=== PATIENT | female | born 1955 | race African-American/Black ===

== ENCOUNTER 2018-11-21 18:01 | Emergency (ER) | payer OTHER ==
--- OUTSIDE RECORDS SUMMARY | 2018-11-21 18:03 | XMS REPORT ---
:1955 [facility] Address [address] [place] [address] Dr. Griffith [address] [place] [id number] Care Team Providers Name Role Phone Unavailable Unavailable Unavailable Problems This patient has no known problems. Allergies, Adverse Reactions, Alerts This patient has no known allergies or adverse reactions. Medications This patient has no known medications. Encounters Start End Encounter Admission Attending Care Care Encounter Date/Time Date/Time Type Type Clinicians Facility Department ID 2018-02-[address] [facility] MED [id number] 16:04:00
[2018-11-21] MEDS ORDERED: DIAZEPAM 5 MG TABLET ONE (19:53)
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
[2018-11-21] MEDS ORDERED: KETOROLAC 30 MG/ML INJ ONE (19:54)
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
== END 2018-11-21 20:30 | disposition home or self-care (01) ==
LOC: ER 18:01
DX: S16.1XXA Strain of muscle, fascia and tendon at neck level, initial encounter (principal); S39.012A Strain of muscle, fascia and tendon of lower back, initial encounter; V49.40XA Driver injured in collision with unspecified motor vehicles in traffic accident, initial encounter; F17.210 Nicotine dependence, cigarettes, uncomplicated; Z79.899 Other long term (current) drug therapy
CPT/HCPCS: 70450; 72125; 96372; 99284

== ENCOUNTER 2018-11-28 15:46 | Emergency (ER) | payer OTHER ==
--- OUTSIDE RECORDS SUMMARY | 2018-11-28 15:48 | XMS REPORT ---
:1955 [facility] [address] [place] [address] Dr. Griffith [address] [place] [id number] Care Team Providers Name Role Phone Unavailable Unavailable Unavailable Problems This patient has no known problems. Allergies, Adverse Reactions, Alerts This patient has no known allergies or adverse reactions. Medications This patient has no known medications. Encounters Start End Encounter Admission Attending Care Care Encounter Date/Time Date/Time Type Type Clinicians Facility Department ID 2018-02-11 Inpatient [facility] MED [id number] 16:04:00
[2018-11-28] MEDS ORDERED: MEPERIDINE HCL 50 MG/ML AMP ONE (17:37)
[2018-11-28] MEDS ORDERED: ONDANSETRON 4 MG (ODT) TAB ONE (17:37)
--- NOTE | 2018-11-28 18:50 | RAD REPORT ---
EXAM DESCRIPTION: RAD - Lumbar Spine 3 Views - 11/28/2018 5:54 pm CLINICAL HISTORY: PAIN Radiculopathy COMPARISON: SPINE LUMBAR W OBLIQUE dated 12/22/2012 FINDINGS: Orthopedic hardware is seen spanning L4-S1. No hardware abnormality discerned. Mild degene rative anterolisthesis of L3 on 4 is noted, unchanged since 2013 comparative study. No acute finding demonstrated.
--- NOTE | 2018-11-28 18:55 | RAD REPORT ---
EXAM DESCRIPTION: RAD - Thoracic Spine Ap/Lat - 11/28/2018 5:56 pm CLINICAL HISTORY: PAIN Radiculopathy COMPARISON: No comparisons FINDINGS: The thoracic spine vertebral body heights and disc spaces are largely maintained. No acute compression fracture. No significant malalignment. IMPRESSION: Negative study.
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
== END 2018-11-28 19:13 | disposition home or self-care (01) ==
LOC: ER 15:46
DX: M62.830 Muscle spasm of back (principal); F17.210 Nicotine dependence, cigarettes, uncomplicated
CPT/HCPCS: 72070; 72100; 96372; 99283; J2175

== ENCOUNTER 2019-12-09 12:24 | Emergency (ER) | payer OTHER ==
--- OUTSIDE RECORDS SUMMARY | 2019-12-09 12:28 | XMS REPORT ---
:1955 [facility] [address] [place] [address] Dr. Griffith [address] [place] [id number] Care Team Providers Name Role Phone Unavailable Unavailable Unavailable Problems This patient has no known problems. Allergies, Adverse Reactions, Alerts This patient has no known allergies or adverse reactions. Medications This patient has no known medications. Encounters Start End Encounter Admission Attending Care Care Encounter Date/Time Date/Time Type Type Clinicians Facility Department ID 2018-02-11 Inpatient [facility] MED [id number] 16:04:00
[2019-12-09] MEDS ORDERED: dexAMETHasone 4 MG TAB ONE (14:53)
[2019-12-09] MEDS ORDERED: KETOROLAC 30 MG/ML INJ ONE (14:53)
--- NOTE | 2019-12-09 14:55 | ER ---
Nurse's Notes [facility] Name: Mona Reilly Age: 64 yrs Sex: Female : 1955 Arrival Date: 12/09/2019 Time: 12:28 Bed 24 Private MD: Jeramy Beckman E Diagnosis: Osteoarthritis of first carpometacarpal joint;Osteoarthritis, unspecified site Presentation: 12/09 12:57 Presenting complaint: Patient states: right hand swelling and redness. Pt also reports aa5 pain to right hand. Pt denies known injury. 12:57 Transition of care: patient was not received from another setting of care. Onset of aa5 symptoms was November 2019. Risk Assessment: Do you want to hurt yourself or someone else?. Initial Sepsis Screen: Does the patient meet any 2 criteria? No. Patient's initial sepsis screen is negative. Does the patient have a suspected source of infection? No. Patient's initial sepsis screen is negative. Care prior to arrival: None. 12:57 Acuity: JUAN 3 aa5 12:57 Method Of Arrival: Ambulatory aa5 Historical: - Allergies: 13:01 NKA; aa5 - PMHx: 13:01 None; aa5 - PSHx: 13:01 right hand; back; aa5 - Immunization history:: Flu vaccine is not up to date. - Social history:: Smoking status: Patient uses tobacco products, smokes one-half pack cigarettes per day. - Ebola Screening: : No symptoms or risks identified at this time. - Family history:: not pertinent. Screenin:09 Abuse screen: Denies threats or abuse. Denies injuries from another. Nutritional mg2 screening: No deficits noted. Tuberculosis screening: No symptoms or risk factors identified. Fall Risk None identified. Assessment: 14:07 General: Appears in no apparent distress. comfortable, Behavior is calm, cooperative. mg2 Pain: Complains of pain in right hand Pain currently is 6 out of 10 on a pain scale. Quality of pain is described as aching, Pain began gradually, 1 day ago. Is intermittent. Neuro: Level of Consciousness is awake, alert, obeys commands, Oriented to person, place, time, situation. Cardiovascular: Capillary refill < 3 seconds Patient's skin is warm and dry. Respiratory: Airway is patent Respiratory effort is even, unlabored, Respiratory pattern is regular, symmetrical. GI: No signs and/or symptoms were reported involving the gastrointestinal system. : No signs and/or symptoms were reported regarding the genitourinary system. EENT: No signs and/or symptoms were reported regarding the EENT system. Derm: Skin is intact, is healthy with good turgor, Skin is pink, warm \T\ dry. normal. Musculoskeletal: Circulation, motion, and sensation intact. Capillary refill < 3 seconds, Reports pain in right hand. 14:55 Reassessment: patiwent for dc after xray result is out. mg2 Vital Signs: 13:01 BP 138 / 82; Pulse 78; Resp 18 S; Temp 97.8(TE); Pulse Ox 97% on R/A; Weight 88 kg (R); aa5 Height 5 ft. 6 in. (167.64 cm) (R); Pain 6/10; 15:20 BP 130 / 78; Pulse 70; Resp 18; Temp 98; Pulse Ox 100% on R/A; mg2 13:01 Body Mass Index 31.31 (88.00 kg, 167.64 cm) aa5 ED Course: 12:28 Patient arrived in ED. ag5 12:28 Jeramy Beckman MD is Private Physician. ag5 12:40 Patient's name was called from ER lobby. No response. aa5 13:00 Triage completed. aa5 13:15 Beka Wright MD is Attending Physician. aimee 13:17 Moy Guzman, DIANE is Primary Nurse. mg2 13:38 Patient has correct armband on for positive identification. Bed in low position. Call jp3 light in reach. Side rails up X 1. Ice pack to injury. Verbal reassurance given. Pulse ox on. NIBP on. 13:38 Patient maintains SpO2 saturation greater than 95% on room air. jp3 14:11 Arm band placed on. mg2 14:53 Jeramy Beckman MD is Referral Physician. aimee 14:59 Hand Right 3 View XRAY In Process Unspecified. EDMS 15:20 No provider procedures requiring assistance completed. Patient did not have IV access mg2 during this emergency room visit. 15:31 Velcro wrist splint applied to right wrist. jp3 Administered Medications: 14:54 Drug: TORadol 60 mg Route: IM; Site: left gluteus; mg2 15:20 Follow up: Response: No adverse reaction; Marked relief of symptoms mg2 14:54 Drug: Decadron 4 mg Route: PO; mg2 15:20 Follow up: Response: No adverse reaction; Marked relief of symptoms mg2 Outcome: 14:54 Discharge ordered by . aimee 15:20 Discharge instructions given to patient, Instructed on discharge instructions, follow mg2 up and referral plans. medication usage, Demonstrated understanding of instructions, follow-up care, medications, Prescriptions given X 3. 15:21 Discharged to home ambulatory. mg2 15:21 Condition: stable 15:41 Patient left the ED. rv Signatures: Dispatcher [employer] EDMD Beka Wright MD MD cha Calderon, Audri RN RN aa5 Moy Guzman RN RN mg2 Tito Reis RN RN rv Kerwin Espinoza jp3 Humberto Man 5
--- NOTE | 2019-12-09 14:55 | EDPHYS ---
Physician Documentation [facility] Name: Mona Reilly Age: 64 yrs Sex: Female : 1955 Arrival Date: 12/09/2019 Time: 12:28 Bed 24 Private MD: Jeramy Beckman E ED Physician Beka Wright HPI: 12/09 14:45 This 64 yrs old Black Female presents to ER via Ambulatory with complaints of Hand aimee Swelling. 14:45 The patient or guardian reports decreased range of motion, pain. The complaints affect aimee the MCP of right thumb, CMC of right thumb, MCP of right index finger and MCP of right middle finger. Context: The problem was sustained at an unknown location. Onset: The symptoms/episode began/occurred 3 day(s) ago. Modifying factors: The symptoms are alleviated by holding still. Associated signs and symptoms: The patient has no apparent associated signs or symptoms. Severity of symptoms: At their worst the symptoms were moderate, in the emergency department the symptoms are unchanged. The patient has experienced similar episodes in the past, a few times. Historical: - Allergies: 13:01 NKA; aa5 - PMHx: 13:01 None; aa5 - PSHx: 13:01 right hand; back; aa5 - Immunization history:: Flu vaccine is not up to date. - Social history:: Smoking status: Patient uses tobacco products, smokes one-half pack cigarettes per day. - Ebola Screening: : No symptoms or risks identified at this time. - Family history:: not pertinent. ROS: 14:45 Constitutional: Negative for fever, chills, and weight loss, Eyes: Negative for injury, aimee pain, redness, and discharge, ENT: Negative for injury, pain, and discharge, Neck: Negative for injury, pain, and swelling, Cardiovascular: Negative for chest pain, palpitations, and edema, Respiratory: Negative for shortness of breath, cough, wheezing, and pleuritic chest pain, Abdomen/GI: Negative for abdominal pain, nausea, vomiting, diarrhea, and constipation, Back: Negative for injury and pain, : Negative for injury, bleeding, discharge, and swelling, Skin: Negative for injury, rash, and discoloration, Neuro: Negative for headache, weakness, numbness, tingling, and seizure, Psych: Negative for depression, anxiety, suicide ideation, homicidal ideation, and hallucinations, Allergy/Immunology: Negative for hives, rash, and allergies, Endocrine: Negative for neck swelling, polydipsia, polyuria, polyphagia, and marked weight changes, Hematologic/Lymphatic: Negative for swollen nodes, abnormal bleeding, and unusual bruising. 14:45 MS/extremity: Positive for decreased range of motion, laceration, swelling, tenderness, of the lateral aspect of right hand and dorsal aspect of proximal phalanx of right thumb. Exam: 14:45 Constitutional: This is a well developed, well nourished patient who is awake, alert, aimee and in no acute distress. Head/Face: Normocephalic, atraumatic. Eyes: Pupils equal round and reactive to light, extra-ocular motions intact. Lids and lashes normal. Conjunctiva and sclera are non-icteric and not injected. Cornea within normal limits. Periorbital areas with no swelling, redness, or edema. ENT: Nares patent. No nasal discharge, no septal abnormalities noted. Tympanic membranes are normal and external auditory canals are clear. Oropharynx with no redness, swelling, or masses, exudates, or evidence of obstruction, uvula midline. Mucous membranes moist. Neck: Trachea midline, no thyromegaly or masses palpated, and no cervical lymphadenopathy. Supple, full range of motion without nuchal rigidity, or vertebral point tenderness. No Meningismus. Chest/axilla: Normal chest wall appearance and motion. Nontender with no deformity. No lesions are appreciated. Cardiovascular: Regular rate and rhythm with a normal S1 and S2. No gallops, murmurs, or rubs. Normal PMI, no JVD. No pulse deficits. Respiratory: Lungs have equal breath sounds bilaterally, clear to auscultation and percussion. No rales, rhonchi or wheezes noted. No increased work of breathing, no retractions or nasal flaring. Back: No spinal tenderness. No costovertebral tenderness. Full range of motion. Skin: Warm, dry with normal turgor. Normal color with no rashes, no lesions, and no evidence of cellulitis. 14:45 Abdomen/GI: Exam negative for 14:45 Musculoskeletal/extremity: ROM: limited active range of motion, limited passive range of motion, limited active range of motion due to pain, limited passive range of motion due to pain, Circulation is intact in all extremities. Compartment Syndrome exam of affected extremity: is normal. no numbness, no tingling, no sensation deficit, no palor, no weak pulses, severe pain, DVT Exam: negative Homans' sign noted on exam, no appreciated bluish discoloration, no erythema, no increased warmth, pain, swelling, tenderness. Vital Signs: 13:01 BP 138 / 82; Pulse 78; Resp 18 S; Temp 97.8(TE); Pulse Ox 97% on R/A; Weight 88 kg (R); aa5 Height 5 ft. 6 in. (167.64 cm) (R); Pain 6/10; 15:20 BP 130 / 78; Pulse 70; Resp 18; Temp 98; Pulse Ox 100% on R/A; mg2 13:01 Body Mass Index 31.31 (88.00 kg, 167.64 cm) aa5 MDM: 13:15 Patient medically screened. [facility] 14:53 Data reviewed: vital signs, nurses notes, radiologic studies, plain films. [facility] 12/09 14:45 Order name: Hand Right 3 View XRAY [facility] 12/09 14:45 Order name: Ice pack; Complete Time: 14:49 [facility] 12/09 15:22 Order name: Thumb Spica Splint; Complete Time: 15:22 mg2 Administered Medications: 14:54 Drug: TORadol 60 mg Route: IM; Site: left gluteus; mg2 15:20 Follow up: Response: No adverse reaction; Marked relief of symptoms mg2 14:54 Drug: Decadron 4 mg Route: PO; mg2 15:20 Follow up: Response: No adverse reaction; Marked relief of symptoms mg2 Disposition: 12/09/19 14:54 Discharged to Home. Impression: Osteoarthritis of first carpometacarpal joint, Osteoarthritis, unspecified site. - Condition is Stable. - Discharge Instructions: Arthritis, Arthritis, [id number]. - Prescriptions for Tylenol- Codeine #3 300-30 mg Oral Tablet - take 2 tablets by ORAL route every 6 hours As needed; 26 tablet. Dexamethasone 0.5 mg Oral Tablet - take 2 tablet by ORAL route 2 times per day; 20 tablet. Diclofenac Sodium 75 mg Oral Tablet, Delayed Release (E.C.) - take 1 tablet by ORAL route 2 times per day; 20 tablet. - Medication Reconciliation Form, Thank You Letter, Antibiotic Education, Prescription Opioid Use, Work release form form. - Follow up: Jeramy Beckman MD; When: 2 - 3 days; Reason: Recheck today's complaints, Continuance of care, Re-evaluation by your physician. - Problem is new. - Symptoms have improved. Signatures: Dispatcher [employer] EDMS Beka Wright MD MD cha Calderon, Audri, RN RN aa5 Moy Guzman RN RN mg2 Tito Reis RN RN rv Corrections: (The following items were deleted from the chart) 15:41 14:54 12/09/2019 14:54 Discharged to Home. Impression: Osteoarthritis of first rv carpometacarpal joint; Osteoarthritis, unspecified site. Condition is Stable. Forms are Medication Reconciliation Form, Thank You Letter, Antibiotic Education, Prescription Opioid Use. Follow up: Jeramy Beckman; When: 2 - 3 days; Reason: Recheck today's complaints, Continuance of care, Re-evaluation by your physician. Problem is new. Symptoms have improved. aimee
--- NOTE | 2019-12-09 15:45 | RAD REPORT ---
EXAM DESCRIPTION: RAD - Hand Right 3 View - 12/09/2019 3:02 pm CLINICAL HISTORY: Right hand pain status post injury FINDINGS: No fracture or dislocation is seen. Marked narrowing involves the third MCP joint with subchondral sclerosis and osteophytes. Osteoporosis Mild narrowing involves several DIP PIP joints.
[2019-12-09 17:24] VITALS: BP 130/78; TEMP 98; O2SAT 100
== END 2019-12-09 15:41 | disposition home or self-care (01) ==
LOC: ER 12:24
DX: M19.041 Primary osteoarthritis, right hand (principal); F17.210 Nicotine dependence, cigarettes, uncomplicated
CPT/HCPCS: 96372; 99284; J8540

== ENCOUNTER 2021-04-07 17:43 | Emergency (ER) | payer OTHER ==
--- OUTSIDE RECORDS SUMMARY | 2021-04-07 17:45 | XMS REPORT | Continuity of Care Document ---
:1955 Author Organization [facility] t Address [address] [place] [address] Care Team Providers Name Role Phone Unavailable Unavailable Unavailable Problems This patient has no known problems. Allergies, Adverse Reactions, Alerts This patient has no known allergies or adverse reactions. Medications This patient has no known medications. Procedures This patient has no known procedures. Encounters Start End Encounter Admission Attending Care Care Encounter Source Date/Time Date/Time Type Type Clinicians Facility Department ID 2018-02-11 Inpatient [facility] MED [id number] St. 16:04:00 [facility] Results This patient has no known results.
[2021-04-07] MEDS ORDERED: FENTANYL CITR 100 MCG/2 ML ONE (18:13)
--- NOTE | 2021-04-07 19:30 | RAD REPORT ---
EXAM DESCRIPTION: RAD - Femur Left - 04/07/2021 7:05 pm CLINICAL HISTORY: Left leg pain FINDINGS: 12 millimeter bony/calcific density lateral to the femoral head likely is chronic No acute fracture is seen.
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
--- NOTE | 2021-04-07 19:36 | RAD REPORT ---
EXAM DESCRIPTION: RAD - Foot Left 3 View - 04/07/2021 7:05 pm CLINICAL HISTORY: Left Foot pain status post injury FINDINGS: Old fracture fifth metatarsal. No dislocation Horizontal lucency is present within the cuboid seen only on one view. This may represent prominent t rabecula or probably less likely a fracture. If the patient has clinical symptoms to suggest a fractu re in this location then CT would be recommended. Debris is present within the anterior soft tissues of the ankle presumably gravel.
[2021-04-07] MEDS ORDERED: HYDROCODONE/APAP 10/325 TAB ONE (19:44)
[2021-04-07] MEDS ORDERED: TETANUS & DIPHTHERIA TOX,ADULT 0.5 ML VIAL ONE (19:52)
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
[2021-04-07 23:58] VITALS: BP 130/68; O2SAT 99
--- NOTE | 2021-04-08 11:05 | RAD REPORT ---
EXAM DESCRIPTION: CT - Foot Left Wo Travis - 04/07/2021 10:16 pm CLINICAL HISTORY: Foot injury. COMPARISON: None. TECHNIQUE: CT of the left foot was performed without IV contrast. Axial, coronal, and sagittal recon structions, as well as long axis reconstruction, were created and sent to PACS. This exam was performed according to our departmental dose-optimization program, which includes autom ated exposure control, adjustment of the mA and/or kV according to patient size and/or use of iterati ve reconstruction technique. FINDINGS: Bones: Mildly motion degraded exam. Acute nondisplaced fibular tip fracture. The medial malleolus appears intact. Tiny acute avulsion fra cture along the medial talus (coronal series 603, image 93). No ankle mortise widening. The talar dom e appears intact. Acute nondisplaced fracture in the proximal plantar aspect of the lateral cuneiform, with intra-artic ular extension to the articulation with the cuboid, with no significant articular step-off. There is a mildly comminuted displaced fracture in the mid cuboid, the fracture line oriented in the long axis orientation. The fracture extends into the cubocalcaneal joint and cuboid-cuneiform articulation. At the cubocalcaneal joint, there is up to 0.6 cm of intra-articular step-off (long axis series 602, im age 58). There are acute multifocal minimally displaced fractures at the base of the first metatarsal , with intra-articular extension. The anterior process of the calcaneus appears intact. The talar [place] nt articulations also appear intact. Chronic healed fracture in the fifth metatarsal shaft, with minimal residual deformity. Tiny os kirstin num. Small peroneal ossicle. Tiny type I os navicularis. Lisfranc joint alignment is maintained. Utility Assembler judd cystic change along the dorsal medial aspect of the medial cuneiform. Soft tissues: Soft tissue swelling about the ankle and foot. No obvious tendinous entrapment identifi ed by this technique. Small tibiotalar joint effusion. Mild edema versus fluid in the sinus Tarsi. IMPRESSION: 1. Acute nondisplaced fibular tip fracture. 2. Tiny acute avulsion fracture along the medial talus. 3. Multifocal acute mildly displaced midfoot fractures. No Lisfranc joint malalignment. However, co nsider further evaluation with MRI to evaluate the Lisfranc ligament complex, given the location of t hese fractures. Electronically signed by: Glendy Aguilar MD 04/07/2021 10:29 PM CDT Due to temporary technical issues with the PACS/Fluency reporting system, reports are being signed by the in house radiologist without review as a courtesy to ensure prompt reporting. The interpreting r adiologist is fully responsible for the content of the report.
== END 2021-04-07 23:26 | disposition home or self-care (01) ==
LOC: ER 17:43
PROC: 2W3RX1Z Immobilization of Left Lower Leg using Splint (ICD-10-PCS; principal; 2021-04-07)
DX: S92.315A Nondisplaced fracture of first metatarsal bone, left foot, initial encounter for closed fracture (principal); S92.152A Displaced avulsion fracture (chip fracture) of left talus, initial encounter for closed fracture; S92.812A Other fracture of left foot, initial encounter for closed fracture; W23.0XXA Caught, crushed, jammed, or pinched between moving objects, initial encounter; Z23 Encounter for immunization
CPT/HCPCS: 73700; 73630; 73552; 73590; 90714; 29515; J3010; 90471; 96374; 99285

== ENCOUNTER 2021-12-17 13:44 | Emergency (ER) | payer OTHER ==
--- OUTSIDE RECORDS SUMMARY | 2021-12-17 13:47 | XMS REPORT | Continuity of Care Document ---
:1955 Author Organization [facility] t Address [address] [place] [address] Care Team Providers Name Role Phone Phill Beckman Primary Care Physician Doctor Unassigned, Name Attending Clinician Unavailable Alphonso ELLSWORTH L Attending Clinician Ravinder PANTOJA S Attending Clinician Payers Payer Name Policy Type Policy Number Effective Date Expiration Date S ource Problems Condition Condition Condition Status Onset Resolution Last Treating Co mments Source Name Details Category Date Date Treatment Clinician Date No known No known Disease Unive rs active active ity of problems problems [facility] Allergies, Adverse Reactions, Alerts This patient has no known allergies or adverse reactions. Social History Social Habit Start Date Stop Date Quantity Comments Source Alcohol intake 2021-09-23 2021-09-23 Lifetime University of 00:00:00 00:00:00 non-drinker [facility] Tobacco use and 2021-04-17 2021-04-17 Never used Universit y of exposure 00:00:00 00:00:00 [facility] Sex Ass[birth year] Universit [facility] of 00:00:00 00:00:00 [facility] Smoking Status Start Date Stop Date Source Current every day smoker 2021-04-17 00:00:00 Uni versity of [facility] Medications Ordered Filled Start Stop Current Ordering Indication Dosage Frequency Signature Comments Components Source Medication Medication Date Date Medication? Clinician (SIG) Name Name traMADoL 50 Yes TAKE 1 Univ ers mg tablet 7-15 TABLET BY ity o f 00:00: MOUTH [place] [address] THREE Medical TIMES A Branch DAY NEEDED FOR PAIN traMADoL 50 Yes TAKE 1 Univ ers mg tablet 7-15 TABLET BY ity o f 00:00: MOUTH THREE Medical TIMES A Branch DAY NEEDED FOR PAIN traMADoL 50 2020-0 Yes TAKE 1 Univ ers mg tablet 7-15 TABLET BY ity o f 00:00: MOUTH THREE Medical TIMES A Branch DAY NEEDED FOR PAIN ibuprofen 2020-0 Yes Univers 800 mg 5-10 ity of tablet 00:00: [facility] cephALEXin 2020-0 Yes Univers 500 mg 5-10 ity of capsule 00:00: [facility] ibuprofen 2020-0 Yes Univers 800 mg 5-10 ity of tablet 00:00: [facility] cephALEXin 2020-0 Yes Univers 500 mg 5-10 ity of capsule 00:00: [facility] ibuprofen 2020-0 Yes Univers 800 mg 5-10 ity of tablet 00:00: [place] [facility] cephALEXin 2020-0 Yes Univers 500 mg 5-10 ity of capsule 00:00: [place] [facility] atorvastati 2020-0 Yes Univer s n 40 mg 5-04 ity of tablet 00:00: [place] [facility] ergocalcife 0 Yes Univer s rol, 5-04 ity of vitamin d2, 00:00: [place] 1,250 mcg 00 Medical (50,000 Branch unit) capsule atorvastati 0 Yes Univer s n 40 mg 5-04 ity of tablet 00:00: [place] [facility] ergocalcife 2020-0 Yes Univer s rol, 5-04 ity of vitamin d2, 00:00: [place] 1,250 mcg 00 Medical (50,000 Branch unit) capsule atorvastati 2020-0 Yes Univer s n 40 mg 5-04 ity of tablet 00:00: [place] [facility] ergocalcife 2020-0 Yes Univer s rol, 5-04 ity of vitamin d2, 00:00: [place] 1,250 mcg 00 Medical (50,000 Branch unit) capsule zolpidem 10 2020-0 Yes Univer s mg tablet 4-22 ity of 00:00: [place] [facility] zolpidem 10 2020-0 Yes Univer s mg tablet 4-22 ity of 00:00: [place] [facility] zolpidem 10 2020-0 Yes Univer s mg tablet 4-22 ity of 00:00: [place] 00 Medical Branch Procedures Procedure Date / Time Performed Performing Clinician [facility] WORKERS COMPENSATION 2021-11-13 06:01:00 Doctor Unassigned, No [facility] [place] Name Medical Branch Encounters Start End Encounter Admission Attending Care Care Encounter Source Date/Time Date/Time Type Type Clinicians Facility Department ID 2018-02-11 Inpatient [facility] MED [id number] St. 16:04:00 [facility] 2021-11-13 2021-11-13 Orders Doctor KRYSTAL [id number] Univers 00:00:00 00:00:00 Only Unassigned, REN [id number] ity of [facility] [id number] Jose as [id number] [address] 2021-11-12 2021-11-12 Telephone Alphonso PAJOLIE [id number] Univers 00:00:00 00:00:00 [facility] [id number] it y of [facility] [id number] Jose as YUE?BLEA [id number] [address] MEDICAL OFFICE BUILDING 2021-11-07 2021-11-07 Telephone Ravinder [facility] [[email or web address]] [id number] Univers 00:00:00 00:00:00 [facility] [id number] it y of [facility] [id number] Jose as YUE?BLEA [id number] [address] MEDICAL OFFICE BUILDING Results This patient has no known results.
[2021-12-17] MEDS ORDERED: HYDROCODONE/APAP 10/325 TAB ONE (15:04)
--- NOTE | 2021-12-17 16:14 | ER ---
Nurse's Notes [facility] Name: Mona Reilly Age: 66 yrs Sex: Female : 1955 Arrival Date: 12/17/2021 Time: 13:46 Bed 6 Private MD: Diagnosis: Contusion of left hip;Contusion of left knee Presentation: 12/17 13:54 Chief complaint: EMS states: FALL FROM STANDING. Coronavirus screen: At this time, the bp client does not indicate any symptoms associated with coronavirus-19. Ebola Screen: No symptoms or risks identified at this time. Initial Sepsis Screen: Does the patient meet any 2 criteria? No. Patient's initial sepsis screen is negative. Does the patient have a suspected source of infection? No. Patient's initial sepsis screen is negative. Risk Assessment: Do you want to hurt yourself or someone else? Patient reports no desire to harm self or others. Onset of symptoms was December 17, 2021 at 13:30. 13:54 Method Of Arrival: EMS: [facility]– [place] bp 13:54 Acuity: JUAN 3 bp Triage Assessment: 13:55 General: Appears distressed, uncomfortable, Behavior is cooperative, appropriate for bp age, anxious. Pain: Complains of pain in left hip, left foot and left leg. EENT: No deficits noted. Neuro: No deficits noted. Cardiovascular: No deficits noted. Respiratory: No deficits noted. GI: No signs and/or symptoms were reported involving the gastrointestinal system. : No signs and/or symptoms were reported regarding the genitourinary system. Derm: No deficits noted. Musculoskeletal: NO OBVIOUS DEFORMITY OR TRAUMA. Historical: - Allergies: 13:55 No Known Allergies; bp - Home Meds: 13:55 Flexeril 10 mg Oral tab 1 tab 3 times per day [Active]; bp - Immunization history:: Adult Immunizations up to date. - Social history:: Smoking status: Patient reports the use of cigarette tobacco products, unknown amount. Screenin:57 Abuse screen: Denies threats or abuse. Denies injuries from another. Nutritional bp screening: No deficits noted. Tuberculosis screening: No symptoms or risk factors identified. Fall Risk None identified. Assessment: 13:57 General: SEE TRIAGE NOTE. bp Vital Signs: 13:54 BP 143 / 82; Pulse 89; Resp 16; Temp 98; Pulse Ox 92% on R/A; bp 15:50 BP 145 / 66; Pulse 78; Resp 18; Pulse Ox 98% on R/A; [facility] ED Course: 13:46 Patient arrived in ED. ds1 13:47 Filipe Vicente, RN is Primary Nurse. bp 13:55 Triage completed. bp 13:55 Arm band placed on. bp 13:57 Patient has correct armband on for positive identification. Bed in low position. Call bp light in reach. Side rails up X2. 14:08 Dayton Rajput PA is PHCP. jr8 14:08 Beka Wright MD is Attending Physician. jr8 15:51 No provider procedures requiring assistance completed. [facility] 16:14 Say Cohen MD is Referral Physician. jr8 16:24 XRAY Hip LEFT 2 view In Process Unspecified. EDMS 16:24 XRAY Knee LEFT 3 view In Process Unspecified. EDMS Administered Medications: 15:21 Drug: [place] (HYDROcodone-acetaminophen) 10 mg-325 mg 1 tabs Route: PO; bp 15:47 Follow up: Response: No adverse reaction [facility] Outcome: 16:14 Discharge ordered by . jr8 16:53 Patient left the ED. aimee Signatures: Dispatcher [employer] EDMS Beka Wright MD MD cha Sanford, Demi ds1 Dayton Rajput PA PA jrFilipe Spann, RN RN bp Au-StagerPhyllis RN RN ha
--- NOTE | 2021-12-17 16:14 | EDPHYS ---
Physician Documentation [facility] Name: Mona Reilly Age: 66 yrs Sex: Female : 1955 Arrival Date: 12/17/2021 Time: 13:46 Bed 6 Private MD: ED Physician Beka Wright HPI: 12/17 16:10 This 66 yrs old Black Female presents to ER via EMS with complaints of Fall Injury. jr8 16:10 Onset: The symptoms/episode began/occurred acutely, today. Severity of symptoms: At jr8 their worst the symptoms were moderate, in the emergency department the symptoms are unchanged. The patient has not experienced similar symptoms in the past. The patient has not recently seen a physician. This is a 66-year-old female patient that presented to the emergency room complaints of left knee and left hip pain after sustaining a accidental mechanical fall from a standing position while at home. Patient stated that she tripped over an extension cord causing her to fall on the left hip and knee. Has had pain since then with decreased range of motion secondary to pain. Denies hitting head or neck or having any loss of consciousness. Denies any other symptoms at this time.. Historical: - Allergies: 13:55 No Known Allergies; bp - Home Meds: 13:55 Flexeril 10 mg Oral tab 1 tab 3 times per day [Active]; bp - Immunization history:: Adult Immunizations up to date. - Social history:: Smoking status: Patient reports the use of cigarette tobacco products, unknown amount. ROS: 16:10 Eyes: Negative for injury, pain, redness, and discharge, ENT: Negative for injury, jr8 pain, and discharge, Neck: Negative for injury, pain, and swelling, Cardiovascular: Negative for chest pain, palpitations, and edema, Respiratory: Negative for shortness of breath, cough, wheezing, and pleuritic chest pain, Abdomen/GI: Negative for abdominal pain, nausea, vomiting, diarrhea, and constipation, Back: Negative for injury and pain, Skin: Negative for injury, rash, and discoloration, Neuro: Negative for headache, weakness, numbness, tingling, and seizure. 16:10 MS/extremity: Positive for decreased range of motion, pain, tenderness, of the left hip and left knee. Exam: 16:10 Constitutional: This is a well developed, well nourished patient who is awake, alert, jr8 and in no acute distress. Head/Face: Normocephalic, atraumatic. Neck: Trachea midline, no thyromegaly or masses palpated, and no cervical lymphadenopathy. Supple, full range of motion without nuchal rigidity, or vertebral point tenderness. No Meningismus. Chest/axilla: Normal chest wall appearance and motion. Nontender with no deformity. No lesions are appreciated. Cardiovascular: Regular rate and rhythm with a normal S1 and S2. No gallops, murmurs, or rubs. Normal PMI, no JVD. No pulse deficits. Respiratory: Lungs have equal breath sounds bilaterally, clear to auscultation and percussion. No rales, rhonchi or wheezes noted. No increased work of breathing, no retractions or nasal flaring. Abdomen/GI: Soft, non-tender, with normal bowel sounds. No distension or tympany. No guarding or rebound. No evidence of tenderness throughout. Back: No spinal tenderness. No costovertebral tenderness. Full range of motion. Skin: Warm, dry with normal turgor. Normal color with no rashes, no lesions, and no evidence of cellulitis. Neuro: Awake and alert, GCS 15, oriented to person, place, time, and situation. Cranial nerves II-XII grossly intact. Motor strength 5/5 in all extremities. Sensory grossly intact. 16:10 Musculoskeletal/extremity: Extremities: grossly normal except: noted in the left hip: Pain and tenderness noted upon examination to the left greater trochanteric and inguinal region. No external signs of trauma noted on physical exam. Full range of motion present but with pain., noted in the Left knee: pain, tenderness, To the anterior patella, ROM: intact in all extremities, full active range of motion, full passive range of motion, limited active range of motion due to pain, limited passive range of motion due to pain, Circulation is intact in all extremities. Sensation intact. Vital Signs: 13:54 BP 143 / 82; Pulse 89; Resp 16; Temp 98; Pulse Ox 92% on R/A; bp 15:50 BP 145 / 66; Pulse 78; Resp 18; Pulse Ox 98% on R/A; [place] MDM: 14:08 Patient medically screened. jr8 16:10 Data reviewed: vital signs, nurses notes, radiologic studies, plain films. Data jr8 interpreted: Pulse oximetry: on room air is 98 %. Interpretation: normal. Counseling: I had a detailed discussion with the patient and/or guardian regarding: the historical points, exam findings, and any diagnostic results supporting the discharge/admit diagnosis, radiology results, the need for outpatient follow up, a orthopedic surgeon, to return to the emergency department if symptoms worsen or persist or if there are any questions or concerns that arise at home. 12/17 14:59 Order name: XRAY Hip LEFT 2 view jr8 12/17 15:04 Order name: XRAY Knee LEFT 3 view jr8 Administered Medications: 15:21 Drug: [place] (HYDROcodone-acetaminophen) 10 mg-325 mg 1 tabs Route: PO; bp 15:47 Follow up: Response: No adverse reaction [facility] Disposition: 12/18 08:24 Co-signature as Attending Physician, Beka Wright MD I agree with the assessment and aimee plan of care. Disposition Summary: 12/17/21 16:14 Discharge Ordered Location: Home jr8 Problem: new jr8 Symptoms: have improved jr8 Condition: Stable jr8 Diagnosis - Contusion of left hip jr8 - Contusion of left knee jr8 Followup: jr8 - With: Say Cohen MD - When: 7 - 10 days - Reason: If symptoms return, Recheck today's complaints Discharge Instructions: - Discharge Summary Sheet jr8 - Contusion jr8 Forms: - Medication Reconciliation Form jr8 - Thank You Letter jr8 - Antibiotic Education jr8 - Prescription Opioid Use jr8 Prescriptions: - Ibuprofen 800 mg Oral Tablet - take 1 tablet by ORAL route every 12 hours As needed take with food; 20 tablet; jr8 Refills: 0, Product Selection Permitted - methocarbamol 500 mg Oral Tablet - take 2 tablets by ORAL route 4 times per day As needed; 56 tablet; Refills: 0, jr8 Product Selection Permitted Signatures: Dispatcher [employer] Beka Adorno MD MD cha Roszak, Josh, PA PA jr8 Filipe Vicente RN RN bp Au-Stager, Heather RN ha
--- NOTE | 2021-12-17 16:46 | RAD REPORT ---
EXAM DESCRIPTION: RAD - Hip Left 2 View - 12/17/2021 4:22 pm CLINICAL HISTORY: Left hip pain FINDINGS: No fracture or dislocation is seen. Calcific density superior to the greater trochanter left femur may indicate calcific tendinitis. Mild left hip joint space narrowing with subchondral sclerosis.
--- NOTE | 2021-12-17 16:47 | RAD REPORT ---
EXAM DESCRIPTION: RAD - Knee Left 3 View - 12/17/2021 4:22 pm CLINICAL HISTORY: Left knee pain FINDINGS: No fracture or dislocation is seen. No bone or joint abnormality noted
[2021-12-17 17:02] VITALS: TEMP 98
[2021-12-17 17:04] VITALS: BP 145/66; O2SAT 98
== END 2021-12-17 16:53 | disposition home or self-care (01) ==
LOC: ER 13:44
DX: S70.02XA Contusion of left hip, initial encounter (principal); S80.02XA Contusion of left knee, initial encounter; W01.0XXA Fall on same level from slipping, tripping and stumbling without subsequent striking against object, initial encounter; Y92.009 Unspecified place in unspecified non-institutional (private) residence as the place of occurrence of the external cause; Z72.0 Tobacco use
CPT/HCPCS: 99283

== ENCOUNTER 2023-12-29 19:29 | Observation (INO) | payer OTHER ==
[2023-12-29] MEDS ORDERED: NA CHLORIDE 0.9% 1,000 ML ONE (20:04)
[2023-12-29] MEDS ORDERED: CEFTRIAXONE 1000 MG/VIAL ONE (20:04)
[2023-12-29 20:16] LABS: Protime INR 1.18
[2023-12-29 20:21] LABS: Absolute Lymphocytes (CBC) 3.3 K/uL (0.7-4.9); Hematocrit 42.4 % (36.0-45.0); MCV 88.7 fL (80-100); MPV 8.8 fL (7.6-11.3); Platelets 233 thou/uL (152-406); RBC Red Blood Cell Count 4.78 M/uL (3.86-4.86)
--- NOTE | 2023-12-29 20:31 | RAD REPORT ---
EXAM DESCRIPTION: CT - CTHCSPWOC - 12/29/2023 8:23 pm CLINICAL HISTORY: Trauma, head and neck injury. PAIN COMPARISON: Head C Spine Mpr Wo Con dated 11/21/2018 TECHNIQUE: Axial 5 mm thick images of the head were obtained. Axial 2 mm thick images of the cervical spine were obtained with sagittal and coronal reconstruction images generated and reviewed. All CT scans are performed using dose optimization technique as appropriate and may include automated exposure control or mA/KV adjustment according to patient size. FINDINGS: CT HEAD WITHOUT CONTRAST: No acute hemorrhage, hydrocephalus or extra-axial collection is identified.Mild generalized brain atr ophy is present with mild periventricular and deep white matter chronic microvascular ischemic change s.No areas of brain edema or midline shift. Chronic right maxillary sinusitis.The paranasal sinuses and mastoids are otherwise clear.The calvariu m is intact. CT CERVICAL SPINE WITHOUT CONTRAST: No fracture or subluxation.Moderate midcervical degenerative changes are present.No prevertebral soft tissues swelling is identified. IMPRESSION: No acute intracranial or cervical spine findings.
[2023-12-29 20:35] LABS: Albumin 3.4 g/dL (3.4-5.0); Bilirubin Direct 0.4 mg/dL (0-0.2); Bilirubin Indirect, Calculated 0.3 mg/dL (0.2-0.8); Bilirubin Total 0.7 mg/dL (0.2-1.0); Magnesium 2.2 mg/dL (1.6-2.4); Protein, Total 8.9 g/dL (6.4-8.2); Troponin High Sensitivity 10.7 pg/mL (<58.9)
--- NOTE | 2023-12-29 20:36 | RAD REPORT ---
EXAM DESCRIPTION: CT - Chest For Pe Angio - 12/29/2023 8:24 pm CLINICAL HISTORY: Chest pain. DYSPNEA COMPARISON: No comparisons TECHNIQUE: CT angiogram of the pulmonary arteries was performed with MIP. All CT scans are performed using dose optimization technique as appropriate and may include automated exposure control or mA/KV adjustment according to patient size. FINDINGS: No evidence of pulmonary thromboembolism. No acute aortic finding demonstrated. The lungs are clear. No significant pericardial or pleural fluid. No concerning bony finding. IMPRESSION: No evidence of pulmonary thromboembolism. No acute lung findings.
--- NOTE | 2023-12-29 20:38 | RAD REPORT ---
EXAM DESCRIPTION: CTAbdomen Pelvis W Contrast - 12/29/2023 8:24 pm CLINICAL HISTORY: Abdominal pain. ABD PAIN COMPARISON: Chest For Pe Angio dated 12/29/2023 TECHNIQUE: Biphasic CT imaging of the abdomen and pelvis was performed with 100 ml non-ionic IV cont rast. All CT scans are performed using dose optimization technique as appropriate and may include automated exposure control or mA/KV adjustment according to patient size. FINDINGS: The lung bases are clear. The liver, spleen, pancreas, adrenal glands and kidneys are within normal limits. Multi stone choleli thiasis. No bowel obstruction, free air, free fluid or abscess. Moderate stool is present throughout the colon . The appendix is normal. No evidence of significant lymphadenopathy. Multi fibroid uterus. Lower lumbar spine orthopedic spinal hardware noted. Mild chronic appearing L1 compression deformity centrally. IMPRESSION: No acute intra-abdominal or pelvic finding. Multi stone cholelithiasis.
[2023-12-29 21:08] LABS: Specific Gravity 1.029 (1.005-1.030); Urine Bacteria None Seen /HPF (<20); Urine Bilirubin NEGATIVE (Negative); Urine Blood Trace (Negative); Urine Clarity Clear (Clear); Urine Color Light-Yellow (Yellow); Urine Glucose NEGATIVE (Negative); Urine Mucus Slight /HPF (None Seen); Urine Protein TRACE (Negative); Urine Urobilinogen Normal (Normal); Urine pH 6.5 (5.0-7.0)
[2023-12-29] MEDS ORDERED: POTASSIUM 25 MEQ EFFERV TAB ONE (21:08)
[2023-12-29 21:12] LABS: Barbiturates NEGATIVE (NEGATIVE); Benzodiazepines NEGATIVE (NEGATIVE); Cocaine NEGATIVE (NEGATIVE); METHAMPHETAM NEGATIVE (NEGATIVE); Methadone NEGATIVE (NEGATIVE); Opiates NEGATIVE (NEGATIVE); Phencyclidine NEGATIVE (NEGATIVE); THC Cannibis POSITIVE (NEGATIVE)
--- NOTE | 2023-12-29 21:17 | RAD REPORT ---
EXAM DESCRIPTION: RAD - Chest Single View - 12/29/2023 9:02 pm CLINICAL HISTORY: DYSPNEA Chest pain. COMPARISON: CHEST PA AND LAT 2 VIEW dated 10/03/2014 FINDINGS: Portable technique limits examination quality. The lungs are grossly clear. The heart is upper limit of normal in size. No displaced fractures. IMPRESSION: No acute intrathoracic process suspected.
--- NOTE | 2023-12-29 21:17 | RAD REPORT ---
EXAM DESCRIPTION: RAD - Knee Right 3 View - 12/29/2023 9:02 pm CLINICAL HISTORY: PAIN COMPARISON: No comparisons FINDINGS: No fracture, dislocation or joint effusion.
[2023-12-29] MEDS ORDERED: ONDANSETRON 4 MG/2 ML VIAL IV PRN (23:43)
[2023-12-29] MEDS: NA CHLORIDE 0.9% 1,000 ML IV SCH (23:45)
--- NOTE | 2023-12-29 23:47 | P.HP ---
Certification for Inpatient Patient admitted to: Observation With expected LOS: <2 Midnights Practitioner: I am a practitioner with admitting privileges, knowledge of patient current condition, hospital course, and medical plan of care. Services: Services provided to patient in accordance with Admission requirements found in Title 42 Section 412.3 of the Code of Federal Regulations Patient History Date of Service: 12/30/23 Reason for admission: Syncope History of Present Illness: 68-year-old female patient with medical history significant for breast cancer status post mastectomy, hyperlipidemia who was evaluated for episode of syncope. She had reported syncopal episode at home with no fever, chills, rigor, nausea, vomiting, dizzy spells. She describes no headaches. She was evaluated in the ED and had CT showed no acute abnormality and x-rays showed no fractures. She was admitted for observation secondary to syncopal episodes. Allergies No Known Allergies Allergy (Verified 07/19/15 14:31) Home Medications: Duloxetine HCl 1 tab PO BID 12/30/23 Meloxicam 1 tab PO DAILY 12/30/23 Pregabalin [Lyrica*] 2 cap PO TID 12/30/23 Review of Systems General: Unremarkable Eyes: Unremarkable ENT: Unremarkable Respiratory: Unremarkable Cardiovascular: Unremarkable Gastrointestinal: Unremarkable Genitourinary: Unremarkable Musculoskeletal: Unremarkable Integumentary: Unremarkable Neurological: Other (syncope) Lymphatics: Unremarkable Physical Examination - Physical Exam General: Alert, Oriented x3 HEENT: Atraumatic Neck: Supple Respiratory: Normal air movement Cardiovascular: Regular rate/rhythm, Normal S1 S2 Gastrointestinal: Soft and benign Musculoskeletal: No swelling Neurological: Normal speech, Normal strength at 5/5 x4 extr - Studies Laboratory Data (last 24 hrs) 12/29/23 12/29/23 12/29/23 19:45 19:45 19:45 WBC 5.70 Hgb 13.9 Hct 42.4 Plt Count 233 PT 12.9 H INR 1.18 Sodium 142 Potassium 3.0 L BUN 11 Creatinine 1.14 H Glucose 86 Magnesium 2.2 Total Bilirubin 0.7 AST 56 H ALT 40 Alkaline Phosphatase 92 Lipase 32 Assessment and Plan - Plan Syncope: Etiology yet to be fully determined. Concerns for ACS. We will trend troponin, have on telemetry and continue aspirin therapy for management. Will obtain lipid panel. Will obtain carotid Doppler ultrasound to evaluate cranial blood supply and also echocardiogram. Prior imaging studies were nonrevealing. History of breast cancer: Management as per outpatient medication Prophylaxis: Lovenox for DVT prophylaxis CODE STATUS: Full code Disposition: Workup syncope and discharge her and when she is deemed clinically stable. Discharge Plan: Home - Advance Directives Does patient have a Living Will: No Does patient have a Durable POA for Healthcare: No
[2023-12-30] MEDS ORDERED: HYDROCODONE/APAP 10/325 TAB ONE (00:20)
--- NOTE | 2023-12-30 00:34 | EDPHYS ---
Physician Documentation [facility] Name: Mona Reilly Age: 68 yrs Sex: Female : 1955 Arrival Date: 12/29/2023 Time: 19:29 Bed 8 Private MD: ED Physician Abisai Gay HPI: 12/29 19:47 This 68 yrs old Black Female presents to ER via Wheelchair with complaints of Shortness aimee Of Breath, Syncope. 19:47 The patient has shortness of breath at rest. Onset: The symptoms/episode began/occurred aimee just prior to arrival. Duration: The symptoms are continuous, and are steadily getting worse. The patient's shortness of breath is aggravated by nothing, is alleviated by application of supplemental oxygen. Associated signs and symptoms: Pertinent positives: non-productive cough, diaphoresis, dizziness, loss of consciousness. Severity of symptoms: At their worst the symptoms were severe in the emergency department the symptoms have improved moderately. The patient has not experienced similar symptoms in the past. Historical: - PMHx: 19:40 breast cancer; kc6 - PSHx: 19:40 mastectomy; kc6 - Immunization history:: Adult Immunizations unknown. - Social history:: Smoking status: unknown. ROS: 19:48 Constitutional: Negative for fever, chills, and weight loss, Eyes: Negative for injury, aimee pain, redness, and discharge, ENT: Negative for injury, pain, and discharge, Neck: Negative for injury, pain, and swelling, Cardiovascular: Negative for chest pain, palpitations, and edema, Abdomen/GI: Negative for abdominal pain, nausea, vomiting, diarrhea, and constipation, Back: Negative for injury and pain, : Negative for injury, bleeding, discharge, and swelling, MS/Extremity: Negative for injury and deformity, Skin: Negative for injury, rash, and discoloration, Psych: Negative for depression, anxiety, suicide ideation, homicidal ideation, and hallucinations, Allergy/Immunology: Negative for hives, rash, and allergies, Endocrine: Negative for neck swelling, polydipsia, polyuria, polyphagia, and marked weight changes, 19:48 Respiratory: Positive for shortness of breath, 19:48 Neuro: Positive for loss of consciousness, syncope, weakness, Exam: 19:48 Constitutional: This is a well developed, well nourished patient who is awake, alert, aimee and in no acute distress. Head/Face: Normocephalic, atraumatic. Eyes: Pupils equal round and reactive to light, extra-ocular motions intact. Lids and lashes normal. Conjunctiva and sclera are non-icteric and not injected. Cornea within normal limits. Periorbital areas with no swelling, redness, or edema. ENT: Nares patent. No nasal discharge, no septal abnormalities noted. Tympanic membranes are normal and external auditory canals are clear. Oropharynx with no redness, swelling, or masses, exudates, or evidence of obstruction, uvula midline. Mucous membranes moist. Neck: Trachea midline, no thyromegaly or masses palpated, and no cervical lymphadenopathy. Supple, full range of motion without nuchal rigidity, or vertebral point tenderness. No Meningismus. Chest/axilla: Normal chest wall appearance and motion. Nontender with no deformity. No lesions are appreciated. Cardiovascular: Regular rate and rhythm with a normal S1 and S2. No gallops, murmurs, or rubs. Normal PMI, no JVD. No pulse deficits. Respiratory: Lungs have equal breath sounds bilaterally, clear to auscultation and percussion. No rales, rhonchi or wheezes noted. No increased work of breathing, no retractions or nasal flaring. Abdomen/GI: Soft, non-tender, with normal bowel sounds. No distension or tympany. No guarding or rebound. No evidence of tenderness throughout. Back: No spinal tenderness. No costovertebral tenderness. Full range of motion. Female : Normal external genitalia. MS/ Extremity: Pulses equal, no cyanosis. Neurovascular intact. Full, normal range of motion. Psych: Awake, alert, with orientation to person, place and time. Behavior, mood, and affect are within normal limits. 19:48 Skin: Appearance: normal except for affected area, Moisture: diaphoretic, petechiae, not noted, ecchymosis, not noted, flushing, not noted, abscess, not appreciated, cellulitis, is not appreciated, induration, is not appreciated, 20:37 ECG was reviewed by the Attending Physician. [facility] Vital Signs: 19:38 BP 86 / 51; Pulse 91; Resp 18 S; Pulse Ox 93% on R/A; kc6 20:45 BP 143 / 105; Pulse 70; Resp 21; Pulse Ox 99% on R/A; tm6 21:23 Weight 86.18 kg; Height 5 ft. 6 in. ; tm6 21:26 BP 157 / 74; Pulse 73; Pulse Ox 99% on R/A; tm6 22:20 BP 153 / 95; Pulse 74; Resp 18; Pulse Ox 97% on R/A; tm6 23:01 BP 165 / 82; Pulse 71; Resp 15; Pulse Ox 96% on R/A; tm6 12/30 00:17 BP 150 / 78; Pulse 68; Resp 13; Temp 97.7(O); Pulse Ox 96% on R/A; tm6 00:17 Pain 7/10; tm6 12/29 21:23 Body Mass Index 30.67 (86.18 kg, 167.64 cm) tm6 00:17 Pain Scale: Adult tm6 MDM: 12/29 19:44 Patient medically screened. aimee 19:50 Differential diagnosis: Anemia Anxiety Reaction Bronchitis Chronic Obstructive aimee Pulmonary Disease pneumonia, Pneumothorax pulmonary edema, Pulmonary Embolism reactive airway disease, Sepsis Unstable Angina. Antibiotic administration: Rocephin and Zithromax given. Differential Diagnosis altered mental status, sepsis, flu. Differential Diagnosis: aortic aneurysm, cardiac arrhythmia, cerebrovascular accident, emotional response, GI bleed, idiopathic syncope, seizure, sepsis, transient ischemic attack, vasovagal episode. Immunization status: Pneumococcal vaccine: within last 5 years. Influenza vaccine: within last 5 years. Data reviewed: vital signs, nurses notes, lab test result(s), EKG, radiologic studies, CT scan, plain films. Consideration of Admission/Observation Escalation of care including admission/observation considered. I considered the following discharge prescriptions or medication management in the emergency department Medications were administered in the Emergency Department. See MAR. Care significantly affected by the following chronic conditions: Cancer. 21:03 ED course: Patient has unremarkable workup thus far, creatinine 1.14, CT C-spine sp4 reveals no acute cervical spine findings, no acute intracranial abnormality, CT chest reveals no sign of PE, CT abdomen pelvis revealed 6 no acute intra-abdominal findings. Multiple stones consistent with cholelithiasis.. 12/30 00:34 ED course: Patient warrants admission for syncopal episode and hypotensive episode. sp4 Patient may benefit from cardiology consult in the morning.. 12/29 19:47 Order name: Basic Metabolic Panel; Complete Time: 20:47 [facility] 12/29 19:47 Order name: CBC with Diff; Complete Time: 20:47 [facility] 12/29 19:47 Order name: LFT's; Complete Time: 20:47 [facility] 12/29 19:47 Order name: Magnesium; Complete Time: 20:47 [facility] 12/29 19:47 Order name: NT PRO-BNP; Complete Time: 20:47 [facility] 12/29 19:47 Order name: PT-INR; Complete Time: 20:47 [facility] 12/29 19:47 Order name: Troponin HS; Complete Time: 20:47 [facility] 12/29 19:47 Order name: Lipase; Complete Time: 20:47 [facility] 12/29 19:47 Order name: Lactate w/ 2H reflex if indic.; Complete Time: 20:47 [facility] 12/29 19:47 Order name: Blood Culture Adult (2) [facility] 12/29 19:47 Order name: Urinalysis w/ reflexes; Complete Time: 23:43 [facility] 12/29 19:50 Order name: glucometer results - FOR PT WITH NO ID; Complete Time: 23:43 [facility] 12/29 20:47 Order name: UDS; Complete Time: 23:43 [facility] 12/29 21:05 Order name: Urine Drug Screen sp4 12/29 23:49 Order name: Basic Metabolic Panel EDMS 12/29 23:49 Order name: Basic Metabolic Panel EDMS 12/29 23:49 Order name: CBC with Automated Diff EDMS 12/29 23:49 Order name: CBC with Automated Diff EDMS 12/29 23:49 Order name: Lipid Profile EDMS 12/29 23:49 Order name: Lipid Profile EDMS 12/29 23:49 Order name: Troponin High Sensitivity EDMS 12/29 23:49 Order name: Troponin High Sensitivity EDMS 12/29 23:49 Order name: Troponin High Sensitivity EDMS 12/29 23:49 Order name: Troponin High Sensitivity EDMS 12/29 19:47 Order name: XRAY Chest (1 view); Complete Time: 23:43 [facility] 12/29 19:47 Order name: CT Head C Spine; Complete Time: 20:47 [facility] 12/29 19:47 Order name: CT Chest For PE Angio; Complete Time: 20:47 [facility] 12/29 19:47 Order name: CT Abd/Pelvis - IV Contrast Only; Complete Time: 20:47 [facility] 12/29 19:50 Order name: Knee Right 3 View XRAY; Complete Time: 23:43 [facility] 12/29 19:47 Order name: EKG; Complete Time: 19:48 [facility] 12/29 19:47 Order name: Cardiac monitoring; Complete Time: 20:10 [facility] 12/29 19:47 Order name: EKG - Nurse/Tech; Complete Time: 20:45 [facility] 12/29 19:47 Order name: IV Saline Lock; Complete Time: 20:10 [facility] 12/29 19:47 Order name: Labs collected and sent; Complete Time: 20:10 [facility] 12/29 19:47 Order name: O2 Per Protocol; Complete Time: 20:10 [facility] 12/29 19:47 Order name: O2 Sat Monitoring; Complete Time: 20:10 [facility] 12/29 19:47 Order name: Jenkins; Complete Time: 20:45 [facility] 12/29 19:47 Order name: IV Saline Lock - Large Bore; Complete Time: 20:10 [facility] EC/30 20:37 Rate is 70 beats/min. Rhythm is regular. QRS [place] is Normal. FL interval is normal. QRS aimee interval is normal. QT interval is normal. No Q waves. T waves are Normal. No ST changes noted. Clinical impression: Normal ECG and No evidence of ischemia. Interpreted by me. Reviewed by me. Administered Medications: 20:03 Drug: NS 0.9% IV 1000 ml IV at 1 bolus Per protocol; 1000 mL bolus Route: IV; Rate: 1 tm6 bolus; Site: right antecubital; 23:00 Follow up: IV Status: Completed infusion; IV Intake: 1000ml tm6 20:27 Drug: Rocephin IV 1 grams IV at per protocol once; Given slow IV push per pharmacy tm6 instructions Route: IV; Rate: per protocol; Site: right antecubital; 21:11 Drug: Potassium PO Effervescent Tablet 50 mEq PO once; dissolve in 4 ounces of water or tm6 juice Route: PO; 23:32 Not Given (Physician Discretion): ns 0.9% 1000 ml IV at 1 bolus Per protocol; 1000 mL tm6 bolus 12/30 00:24 Drug: [place] PO 10 mg-325 mg 1 tabs PO once Route: PO; tm6 Disposition Summary: 12/30/23 00:33 Hospitalization Ordered Notes: Hospitalization Status: Observation sp4 Provider: Iraj Laurent sp4 Condition: Stable sp4 Problem: new sp4 Symptoms: have improved sp4 Bed/Room Type: Standard sp4 Location: Intensive Care Unit(12/30/23 04:31) vc1 Room Assignment: 1-(12/30/23 04:31) vc1 Diagnosis - Hypotension, unspecified sp4 - Acute hypotensive episode, syncope and collapse sp4 Forms: - Medication Reconciliation Form sp4 - SBAR form sp4 - Leadership Thank You Letter sp4 Signatures: Dispatcher [employer] EDBeka Gutierrez MD MD cha Calcote, Vanessa RN RN vc1 Belkis Hall RN RN kc6 Abisai Gay MD MD sp4 Romain Cruz RN RN tm6 Corrections: (The following items were deleted from the chart) 12/29 19:41 19:40 PSHx: Mastoidectomy; kc6 kc6 12/30 04:31 00:33 Telemetry/MedSurg (observation) sp4 vc1 04:31 00:33 sp4 vc1
--- NOTE | 2023-12-30 00:34 | ER ---
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 pt denies chest pain. pt brought back to ER bed 1 via wheelchair. pt in and out of consciousness. DIANE Patel and Dr. Wright at bedside. Coronavirus screen: At this time, the client does not indicate any symptoms associated with coronavirus-19. Ebola Screen: No symptoms or risks identified at this time. Initial Sepsis Screen: Does the patient meet any 2 criteria? Systolic BP < 90 mmHg. Mean Arterial Pressure (MAP) < 65. Does the patient have a suspected source of infection? No. Patient's initial sepsis screen is negative. Risk Assessment: Do you want to hurt yourself or someone else? Patient reports no desire to harm self or others. Onset of symptoms was December 29, 2023. 19:38 Method Of Arrival: Wheelchair kc6 19:38 Acuity: JUAN 2 kc6 Triage Assessment: 19:40 General: Appears distressed, uncomfortable, well groomed, well developed, Behavior is kc6 unresponsive. Pain: Complains of pain in left knee. EENT: No signs and/or symptoms were reported regarding the EENT system. Neuro: Level of Consciousness is unresponsive, Oriented to person, place, time, situation, Appropriate for age Reports dizziness, a syncopal episode. Cardiovascular: Capillary refill < 3 seconds. Respiratory: Reports shortness of breath at rest Airway is patent Trachea midline Respiratory effort is even, unlabored, Respiratory pattern is regular, symmetrical, Onset: The symptoms/episode began/occurred just prior to arrival, the patient has moderate shortness of breath. GI: No signs and/or symptoms were reported involving the gastrointestinal system. : No signs and/or symptoms were reported regarding the genitourinary system. Derm: No signs and/or symptoms reported regarding the dermatologic system. Skin is intact, is healthy with good turgor, Skin is diaphoretic, Skin is normal, Skin temperature is cool. Musculoskeletal: No signs and/or symptoms reported regarding the musculoskeletal system. Circulation, motion, and sensation intact. Capillary refill < 3 seconds, Range of motion: intact in all extremities. Historical: - PMHx: 19:40 breast cancer; kc6 - PSHx: 19:40 mastectomy; kc6 - Immunization history:: Adult Immunizations unknown. - Social history:: Smoking status: unknown. Screenin:40 [facility] ED Fall Risk Assessment (Adult) History of falling in the last 3 months, kc6 including since admission Yes- single mechanical fall (1 pt) Confusion or Disorientation No (0 pts) Intoxicated or Sedated No (0 pts) Impaired Gait No (0 pts) Mobility Assist Device Used No (0 pt) Altered Elimination No (0 pt) Score/Fall Risk Level 0 - 2 = Low Risk. Abuse screen: Denies threats or abuse. Denies injuries from another. Nutritional screening: No deficits noted. Tuberculosis screening: No symptoms or risk factors identified. Assessment: 19:29 General: Pt voided on self while being wheeled to room in wheel chair. Patient has no [facility] recollection of urinating on self.. 19:32 General: Pt became unresponsive for 10 seconds after transferring from wheelchair to 1 bed. When patient came to she had no memory of what happened.. 19:42 Reassessment: please see triage assessment. kc6 12/30 00:09 Reassessment: patient complaining of pain when urinating with catheter in. Jenkins tm6 removed, purewick placed. Patient says it still hurts to urinate. 00:18 Pain: Complains of pain in back and right leg. tm6 Vital Signs: 12/29 19:38 BP 86 / 51; Pulse 91; Resp 18 S; Pulse Ox 93% on R/A; kc6 20:45 BP 143 / 105; Pulse 70; Resp 21; Pulse Ox 99% on R/A; tm6 21:23 Weight 86.18 kg; Height 5 ft. 6 in. ; tm6 21:26 BP 157 / 74; Pulse 73; Pulse Ox 99% on R/A; tm6 22:20 BP 153 / 95; Pulse 74; Resp 18; Pulse Ox 97% on R/A; tm6 23:01 BP 165 / 82; Pulse 71; Resp 15; Pulse Ox 96% on R/A; tm6 12/30 00:17 BP 150 / 78; Pulse 68; Resp 13; Temp 97.7(O); Pulse Ox 96% on R/A; tm6 00:17 Pain 7/10; tm6 12/29 21:23 Body Mass Index 30.67 (86.18 kg, 167.64 cm) tm6 00:17 Pain Scale: Adult tm6 ED Course: 12/29 19:35 Patient arrived in ED. jj6 19:40 Triage completed. kc6 19:40 Arm band placed on. kc6 19:42 Patient maintains SpO2 saturation greater than 95% on room air. kc6 19:44 Beka Wright MD is Attending Physician. [facility] 20:04 Attending Physician role handed off by Beka Wright MD sp4 20:04 Abisai Gay MD is Attending Physician. sp4 20:09 Patient has correct armband on for positive identification. Placed in gown. Bed in low tm6 position. Call light in reach. Side rails up X2. Provided Education on: plan of care. Client placed on continuous cardiac and pulse oximetry monitoring. NIBP monitoring applied. conveyor monitor on. Noise minimized. Warm blanket given. 20:09 No provider procedures requiring assistance completed. Inserted saline lock: 20 gauge tm6 in right. 20:10 Inserted saline lock: 20 gauge in left antecubital area, using aseptic technique. tm6 20:25 CT Head C Spine In Process Unspecified. EDMS 20:25 CT Chest For PE Angio In Process Unspecified. EDMS 20:25 CT Abd/Pelvis - IV Contrast Only In Process Unspecified. EDMS 20:45 Jenkins cath inserted, using sterile technique, 16 Fr., returned clear yellow urine. tm6 Patient tolerated well. 21:04 XRAY Chest (1 view) In Process Unspecified. EDMS 21:04 Knee Right 3 View XRAY In Process Unspecified. EDMS 12/30 00:10 Jenkins cath removed intact, balloon deflated. tm6 00:32 Iraj Laurent MD is Hospitalizing Provider. sp4 01:22 Patient admitted, IV remains in place. tm6 Administered Medications: 12/29 20:03 Drug: NS 0.9% IV 1000 ml IV at 1 bolus Per protocol; 1000 mL bolus Route: IV; Rate: 1 tm6 bolus; Site: right antecubital; 23:00 Follow up: IV Status: Completed infusion; IV Intake: 1000ml tm6 20:27 Drug: Rocephin IV 1 grams IV at per protocol once; Given slow IV push per pharmacy tm6 instructions Route: IV; Rate: per protocol; Site: right antecubital; 21:11 Drug: Potassium PO Effervescent Tablet 50 mEq PO once; dissolve in 4 ounces of water or tm6 juice Route: PO; 23:32 Not Given (Physician Discretion): ns 0.9% 1000 ml IV at 1 bolus Per protocol; 1000 mL tm6 bolus 12/30 00:24 Drug: [place] PO 10 mg-325 mg 1 tabs PO once Route: PO; tm6 Medication: 12/29 20:09 VIS not applicable for this client. tm6 Intake: 23:00 IV: 1000ml; Total: 1000ml. tm6 Outcome: 12/30 00:33 Decision to Hospitalize by Provider. sp4 01:21 Admitted to ER Hold. Please see [facility] for further documentation. tm6 01:21 Condition: stable 01:21 Instructed on the need for admit, Demonstrated understanding of instructions, 01:22 Patient left the ED. tm6 06:24 Admitted to Med/surg accompanied by nurse, room ICU 5 (overflow), Report called to 6 Yvonne CONTRERAS 06:28 Patient left the ED. tm6 Signatures: Dispatcher [employer] EDMS Beka Wright MD MD cha Marsh, Wendy Moraima Garcia jj6 Mariana Montilla RN RN 1 Belksi Hall RN RN Abisai Livingston MD MD sp4 Romain Cruz RN RN tm6 Corrections: (The following items were deleted from the chart) 12/29 19:41 19:40 PSHx: Mastoidectomy; kc6 kc6 12/30 01:25 12/29 22:36 Initiated transfer to [facility], spoke with Verito Ham [facility] 12/30 01:26 12/29 22:36 Initiated transfer to [facility], spoke with Verito Ham [facility] 12/30 01: 01:00 Pt accepted for transfer to [facility] ICU Rm: 7 South 4 Bed 1 by Sandrine Chauhan \T\ 0056 wm per Verito Fatoumata. wm 01:00 Pt accepted for transfer to [facility] ICU Rm: [address] [place] [id number] Bed 1 by Sandrine Chauhan \T\ 55 wm per Verito Fatoumata. wm 01:08 Waiting to call for transport per Dr. Gay due to needing to start wm transfusions wm 01:08 Waiting to call for transport per Dr. Gay due to needing to start wm transfusions wm
[2023-12-30] MEDS ORDERED: ACETAMINOPHEN 325 MG TABLET ONE (06:58)
[2023-12-30] MEDS: ACETAMINOPHEN 325 MG TABLET PO PRN ×3 (06:59→18:19)
--- NOTE | 2023-12-30 07:50 | P.PN ---
Date of Service: 12/30/23 Subjective: Doing okay left knee pain continues ~same no new / worsening problems afebrile ROS: 10 point ROS as noted above, otherwise negative Physical Exam: GEN: Alert, oriented, NAD HEENT: Normal conjunctiva, sclera anicteric CV: Regular rate and rhythm, no edema Pulm: Nonlabored respirations on room air, clear bilaterally ABD: Soft, nontender, nondistended MSK: tenderness at right knee Neuro: Normal speech, normal affect vitals reviewed Problem List: Syncope NSTEMI Right Knee pain h/o breast cancer s/p mastectomy Hyperlipidemia Syncope NSTEMI CT abdomen (12/29): No acute abdominal findings. Multi stone cholelithiasis. Moderate stool. Mild chronic L1 compression deformity CT head (12/29): no acute intracranial findings. Chronic right maxillary sinusitis. Chronic microvascular ischemic changes. CTA chest (12/29): No PE or any other acute findings Carotid u/s (12/29): no evidence of hemodynamically significant stenosis. mild atherosclerosis echo ordered (12/29) Cardiology consulted trend troponins - mildly elevated, monitor on tele check EKG. Repeat labs in AM urinalysis unremarkable follow blood cultures given 1 IV bolus and rocephin in ED. Right Knee pain xray Knee (12/29): no fracture / dislocations / join effusions PRN pain medication h/o breast cancer s/p mastectomy Hyperlipidemia confirm home meds, restart as appropriate continue supportive care. VTE: Lovenox Code: Full Dispo: Home, ~1-2 days Pending further work up, cardiac recs
[2023-12-30 08:16] LABS: Absolute Lymphocytes (CBC) 2.5 K/uL (0.7-4.9); Hematocrit 36.5 % (36.0-45.0); Lymphocytes % 51.4 % (15.3-44.8); MCV 89.1 fL (80-100); MPV 8.3 fL (7.6-11.3); Platelets 214 thou/uL (152-406); RBC Red Blood Cell Count 4.09 M/uL (3.86-4.86)
--- NOTE | 2023-12-30 08:21 | RAD REPORT ---
EXAM DESCRIPTION: - CP - 12/30/2023 2:32 am CLINICAL HISTORY: eval of syncope COMPARISON: Head C Spine Mpr Wo Con dated 12/29/2023 TECHNIQUE: Real-time sonographic evaluation of both carotid systems was performed. Doppler interroga tion was performed with waveform tracing bilaterally. FINDINGS: Normal high resistance waveforms are noted in both external carotid arteries. The common c arotid arteries and internal carotid arteries show normal low resistance waveforms. Mixed hard and soft plaque present at the right common carotid artery distally, right carotid bulb, a nd right proximal ICA. Peak systolic and end diastolic velocity values and the ICA/CCA ratios are in the non-hemodynamically significant range. Antegrade flow seen in both vertebral arteries. IMPRESSION: No evidence of a hemodynamically significant stenosis. Mild atherosclerosis .
[2023-12-30 09:17] LABS: Blood Morphology Comment NOT SEEN (NOT SEEN); Platelet Estimate ADEQ; Smudge Cells NOTED
[2023-12-30] MEDS: NA CHLORIDE 0.9% 1,000 ML IV SCH ×2 (09:45→18:19)
[2023-12-30 10:00] LABS: Potassium 3.2 mEq/L (3.5-5.1)
[2023-12-30] MEDS: ENOXAPARIN 40 MG/0.4 ML SQ SCH (10:23)
[2023-12-30] MEDS: ASPIRIN 81 MG CHEWABLE TABLET PO SCH (10:23)
[2023-12-30] MEDS: PREGABALIN 75 MG CAP PO SCH ×3 (10:23→21:28)
--- NOTE | 2023-12-30 12:36 | RAD REPORT ---
EXAM DESCRIPTION: CT - Head Brain Wo Cont - 12/30/2023 12:25 pm CLINICAL HISTORY: intermittent loss of consciousnes COMPARISON: No comparisons TECHNIQUE: All CT scans are performed using dose optimization technique as appropriate and may inclu de automated exposure control or mA/KV adjustment according to patient size. FINDINGS: No intracranial hemorrhage, hydrocephalus or extra-axial fluid collection.No areas of brai n edema or evidence of midline shift. Mild chronic small vessel ischemic changes. The paranasal sinuses and mastoids are clear. The calvarium is intact. IMPRESSION: No acute intracranial abnormality.
[2023-12-30] MEDS ORDERED: POTASSIUM CL SA 10 MEQ TAB PO ONE (18:00)
[2023-12-31] MEDS: ACETAMINOPHEN 325 MG TABLET PO PRN (02:48)
[2023-12-31] MEDS ORDERED: HYDRALAZINE HCL 20 MG/ML VIAL IV ONE (04:11)
[2023-12-31] MEDS ORDERED: HYDRALAZINE HCL 20 MG/ML VIAL ONE ×2 (04:14→14:24)
[2023-12-31] MEDS: NA CHLORIDE 0.9% 1,000 ML IV SCH (06:13)
[2023-12-31 06:32] VITALS: BMI 31.5
--- NOTE | 2023-12-31 06:49 | ECHO ---
HEIGHT: 5 ft 6 in WEIGHT: 195 lb 4.8 oz DATE OF STUDY: 12/30/[address]: Iraj Laurent MD 2-DIMENSIONAL: YES M.MODE: YES DOPPLER: YES COLOR FLOW: YES TDS: PORTABLE: YES DEFINITY: BUBBLE STUDY: DIAGNOSIS: EVALUATE FOR SYNCOPE CARDIAC HISTORY: CATHERIZATION: SURGERY: PROSTHETIC VALVE: PACEMAKER: MEASUREMENTS (cm) DIASTOLIC (NORMALS) SYSTOLIC (NORMALS) IVSd 1.0 (0.6-1.2) LA Diam 3.2 (1.9-4.0) LVEF 60% LVIDd 4.0 (3.5-5.7) LVIDs 2.8 (2.0-3.5) %FS 32% LVPWd 1.1 (0.6-1.2) Ao Diam 2.5 (2.0-3.7) 2 DIMENSIONAL ASSESSMENT: RIGHT ATRIUM: NORMAL LEFT ATRIUM: NORMAL RIGHT VENTRICLE: NORMAL LEFT VENTRICLE: NORMAL TRICUSPID VALVE: MILD TRICUSPID REGURGITATION MITRAL VALVE: MILD MITRAL REGURGITATION PULMONIC VALVE: NORMAL AORTIC VALVE: NORMAL PERICARDIAL EFFUSION: NONE AORTIC ROOT: NORMAL LEFT VENTRICULAR WALL MOTION: NORMAL DOPPLER/COLOR FLOW: SEE BELOW COMMENTS: 1. NORMAL LEFT VENTRICULAR EJECTION FRACTION 55-60% 2. NORMAL WALL MOTION 3. MILD TRICUSPID REGURGITATION 4. MILD MITRAL REGURGITATION TECHNOLOGIST: LULY VILLA
[2023-12-31] MEDS: ENOXAPARIN 40 MG/0.4 ML SQ SCH (07:56)
[2023-12-31 08:23] VITALS: O2SAT 98
[2023-12-31] MEDS: PREGABALIN 75 MG CAP PO SCH ×2 (08:34→15:23)
[2023-12-31] MEDS: ASPIRIN 81 MG CHEWABLE TABLET PO SCH (08:34)
[2023-12-31 10:08] LABS: Absolute Lymphocytes (CBC) 2.1 K/uL (0.7-4.9); Hematocrit 40.2 % (36.0-45.0); Lymphocytes % 55.7 % (15.3-44.8); MCV 88.4 fL (80-100); MPV 8.4 fL (7.6-11.3); Platelets 236 thou/uL (152-406); RBC Red Blood Cell Count 4.55 M/uL (3.86-4.86)
[2023-12-31 10:20] LABS: Potassium 3.7 mEq/L (3.5-5.1)
--- NOTE | 2023-12-31 11:03 | P.PN ---
Date of Service: 12/31/23 Subjective: tentative plan for heart cath today with Dr. Antunez BP elevated today otherwise no new / worsening problems chronic back pain slightly worse due to laying in bed ROS: 10 point ROS as noted above, otherwise negative Physical Exam: GEN: Alert, oriented, NAD HEENT: Normal conjunctiva, sclera anicteric CV: Regular rate and rhythm, no edema Pulm: Nonlabored respirations on room air, clear bilaterally ABD: Soft, nontender, nondistended MSK: tenderness at right knee, mild swelling Neuro: Normal speech, normal affect vitals reviewed Problem List: Syncope NSTEMI Right Knee pain Hypertension h/o breast cancer s/p mastectomy Hyperlipidemia Syncope NSTEMI story concerning for cardiac etiology CT abdomen (12/29): No acute abdominal findings. Multi stone cholelithiasis. Mode rate stool. Mild chronic L1 compression deformity CT head (12/29): no acute intracranial findings. Chronic right maxillary sinusitis. Chronic microvascular ischemic changes. CTA chest (12/29): No PE or any other acute findings Carotid u/s (12/29): no evidence of hemodynamically significant stenosis. mild atherosclerosis echo ordered (12/29): 60% EF, mild TR/MR Cardiology consulted NPO for tentative heart cath today with Dr. Antunez (12/31) troponins mildly elevated but trended flat, monitor on tele check EKG. Repeat labs in AM urinalysis unremarkable follow blood cultures significantly hypotensive on presentation to ED, now hypertensive -suspect partly due to pain Hypertension given IV hydralazine x1 overnight Right Knee pain xray Knee (12/29): no fracture / dislocations / join effusions PRN pain medication h/o breast cancer s/p mastectomy Hyperlipidemia confirm home meds, restart as appropriate continue supportive care. VTE: Lovenox Code: Full Dispo: Home, anticipate later this evening vs tomorrow Pending heart cath / results
[2023-12-31] MEDS ORDERED: ATROPINE SULF 1 MG/10 ML SYR IV ONE (11:30)
[2023-12-31] MEDS ORDERED: LIDOCAINE 1% 20 ML MDV ONE (11:30)
[2023-12-31] MEDS ORDERED: VERAPAMIL HCL 10 MG/4 ML VIAL IV ONE (11:30)
[2023-12-31] MEDS ORDERED: HEPA 1000U/500MLS 2,000 UNIT/1,000 ML BAG IV ONE (11:30)
[2023-12-31] MEDS ORDERED: FENTANYL CITR 100 MCG/2 ML ONE (11:30)
[2023-12-31] MEDS ORDERED: MIDAZOLAM HCL 2 MG/2 ML INJ ONE (11:30)
[2023-12-31] MEDS ORDERED: CLOPIDOGREL 75 MG TABLET ONE (11:31)
[2023-12-31] MEDS ORDERED: HEPARIN 10,000 UNIT/10 ML VIAL IV ONE (11:31)
[2023-12-31] MEDS ORDERED: TICAGRELOR 90 MG TABLET PO ONE (11:31)
[2023-12-31] MEDS ORDERED: HEPARIN 5000 UNIT/ML 1 ML VIAL ONE (11:31)
[2023-12-31] MEDS ORDERED: ASPIRIN 325 MG TAB ONE (11:33)
[2023-12-31] MEDS ORDERED: NITROGLYCERIN/D5W 25 MG/250 ML BTL IV ONE (11:37)
[2023-12-31] MEDS ORDERED: NA CHLORIDE 0.9% 500 ML ONE (12:49)
--- NOTE | 2023-12-31 13:27 | EKG ---
Test Date: 2023-12-29 Test Time: 20:28:56 Scheduling Manager: DALIA MEASUREMENT RESULTS: Intervals: Rate: 70 DC: 150 QRSD: 90 QT: 430 QTc: 464 [place]: P: 76 DC: 150 QRS: 54 T: 54 INTERPRETIVE STATEMENTS: Normal sinus rhythm Normal ECG No previous ECG available for comparison Electronically Signed On 12-31-23 13:23:05 SEMAPHORE OPERATOR by Caleb Antunez
[2023-12-31] MEDS ORDERED: HYDROCODONE/APAP 10/325 TAB PO PRN (15:14)
--- NOTE | 2023-12-31 15:15 | OP ---
Date of Procedure: 12/31/2023 Surgeon: ROSY RENEE Surgery Performed: 1.Selective coronary angiogram. 2.Left heart catheterization. Indication: [id number] myocardial infarction. Access: Right femoral artery 6-Kittitian closed with 6-Kittitian Angio-Seal. Complications: None. Bleeding: Less than 20 mL. Description Of Procedure: After risks, benefits, alternatives were explained, patient agreed to proc edure, signed informed consent. Patient was brought into cardiac catheterization laboratory, prepped and draped in the usual sterile fashion. Then I accessed right femoral artery using micropuncture k it, ultrasound guidance, and fluoroscopy, placed 6-Kittitian [place] sheath, took a 6-Kittitian JL4 cathet er into aortic root, engaged the left main, took standard views and then exchanged for 6-Kittitian JR4 c atheter, engaged the RCA, took standard views and the catheter was pushed over the wire into the LV, measured the LVEDP. Pullback did not record any gradient. Then I removed the catheter and the sheat h, placed a 6-Kittitian Angio-Seal for closure with good hemostasis. Findings: 1.Left main; large and normal. 2.LAD; large and proximal segment is normal. Mid segment has a focal 40% stenosis. Diagonal branch es are normal. The rest of the LAD is normal. 3.Left circumflex; large vessel and it is normal. Normal OM branches. 4.RCA; it is dominant circulation and is normal. 5.Normal LVEDP at 10 mmHg. Conclusion: 1.Mild nonobstructive coronary artery disease. 2.Normal LVEDP. Recommendation: Medical management. SR/MODL Voice ID: [id number] Report ID: [id number]
[2023-12-31] MEDS ORDERED: HYDROCODONE/APAP 10/325 TAB ONE (15:20)
--- NOTE | 2023-12-31 15:42 | PN ---
Date of Progress Note: 12/31/2023 Subjective: Seen by bedside. No chest pain today. No nausea, vomiting, or diarrhea. No further ep isodes of syncope. No arrhythmia. All other systems were reviewed, they were negative. Objective: Vital Signs: Reviewed. Head and Neck: Pupils are equal, reactive to light. Intact eye movements. No JVD. No cervical lym phadenopathy. Neck is supple. Thyroid is not enlarged. Lungs: Clear to auscultation bilaterally. No rhonchi, wheezing, or crackles. No accessory muscle u se. Heart: Regular rate and rhythm. No extra sounds. Abdomen: Soft, nontender. Bowel sounds positive. No organomegaly. No masses or hernia. No rigidi ty or rebound. Extremities: No edema, clubbing, or cyanosis. Intact pulses. Skin: No rash or nodule. Neuro: Alert, awake, oriented x3. No acute focal deficits appreciated. Investigation: Labs were reviewed. Assessment And Recommendations: 1.Elevated troponin with syncope. There was a concern about ventricular arrhythmia and non-STEMI. A coronary angiogram was done today. She has mild coronary artery disease. I would recommend just m edical management. 2.Coronary artery disease. It is mild. Recommend atorvastatin 40 mg q.h.s., and 81 mg aspirin garcia y. 3.Hypertension. Blood pressure is extremely elevated. Recommend to start her on KODY inhibitor and beta-luiza and plan for outpatient followup. 4.Syncope. No arrhythmia. Not sure if she really passed out. However, I recommend a long-term out patient cardiac catheterization technologist and EP evaluation which can be done as an outpatient. From Cardiology standp oint, patient can be released and we can follow her up as an outpatient and the plan arranged for EP evaluation. In the interim, she should not be driving. SR/MODL Voice ID: [id number] Report ID: [id number]
[2023-12-31 16:15] VITALS: BP 133/71; TEMP 98.2
--- NOTE | 2023-12-31 16:45 | CON ---
Date of Consultation: 12/30/2023 Reason For Consultation: Elevated troponin and syncope. History Of Present Illness: 68-year-old female, history of breast cancer, hypertension, presented fo r syncopal episode. She claimed that she was sitting and having food and then she passed out, but it was not clear if she had a full loss of consciousness. She denies having any chest pain or shortnes s of breath at present time. Past Medical History: As outlined above in the HPI. Medications: Refer to reconciliation sheet for detailed list. Allergies: NO KNOWN DRUG ALLERGIES. Family History: No premature coronary artery disease or cancer. Social History: She does not smoke or drink. Does not use any drugs. Review of Systems: All systems reviewed and they were negative except as mentioned in the HPI. Physical Examination: Vital Signs: Reviewed. Head and Neck: Pupils are equal, reactive to light. Intact eye movements. No JVD. No cervical lym phadenopathy. Neck is supple. Thyroid is not enlarged. Lungs: Clear to auscultation bilaterally. No rhonchi, wheezing, or crackles. No accessory muscle u se. Heart: Regular rate and rhythm. No extra sounds. Abdomen: Soft, nontender. Bowel sounds positive. No organomegaly. No masses or hernia. No rigidi ty or rebound. Extremities: No edema, clubbing, or cyanosis. Intact pulses. Skin: No rash or nodule. Neurologic: Alert, awake, oriented x3. No acute focal deficits appreciated. Investigations: Troponin peaked at 95 and it is trending down. BUN is 9, creatinine 0.92, and hemog lobin is 12. Assessment And Recommendations: 1.Elevated troponin with syncopal episode. This could be the ventricular tachyarrhythmia, hence isc hemia evaluation is warranted. Keep her NPO past midnight. Plan for coronary angiogram tomorrow mor yoli and obtain an echo. 2.Syncope. If she truly had loss of consciousness while she was sitting, makes it a high-risk synco pe. Keep monitoring on telemetry closely and check a carotid ultrasound and plan for coronary angiog jeimy tomorrow due to the elevated troponin and check an echo, plan accordingly. 3.Hypertension. Recommend start on losartan 25 mg daily and adjust medications for a blood pressure control. SR/MODL Voice ID: [id number] Report ID: [id number]
[2023-12-31] MEDS ORDERED: ATORVASTATIN 40 MG TAB PO SCH (21:00)
--- NOTE | 2024-01-01 08:10 | P.DS ---
Admission Date: 12/29/23 Discharge Date: 12/31/23 Disposition: ROUTINE DISCHARGE Discharge Condition: GOOD Reason for Admission: Syncope Consultations: Cardiology - Dr. Antunez Brief History of Present Illness: 68yo F, PMH: breast cancer status post mastectomy, hyperlipidemia Patient presented to the ED after a syncopal episode. She had reported syncopal episode at home with no fever, chills, rigor, nausea, vomiting, dizzy spells. She describes no headaches. She was evaluated in the ED and had CT showed no acute abnormality and x-rays showed no fractures. She was admitted for observation secondary to syncopal episodes. Hospital Course: Problem List: Syncope NSTEMI mild CAD Right Knee pain Hypertension h/o breast cancer s/p mastectomy Hyperlipidema Patient presented to ED after syncopal episode. CTA chest without any acute findings or evidence of PE. Carotid ultrasound noted mild atherosclerosis otherwise negative. Echo with 60%EF, mild TR/MR. CT head / CT abdomen both negative for any acute findings. Did note chronic findings including Multi stone cholelithiasis, Mild chronic L1 compression deformity, Chronic right maxillary sinusitis. Chronic microvascular ischemic changes. Troponin mildly elevated but trended flat. urinalysis unremarkable. EKG was okay. Cardiology was consulted. Patient was taken to the OR for heart catheterization on 12/[address] Antunez. Found to have mild coronary artery disease. Recommended aspirin 81mg daily and atorvastatin. On day of discharged her blood pressure was noted to be elevated. Dr. Antunez recommended starting losartan 25mg. She was ambulating without issue except for some mild knee discomfort. Dr. Antunez recommends follow up in his office. She will need a long-term outpatient laborer heading and electrophysiology evaluation. Advised against driving until cleared by cardiology. In regards to knee pain: xray of the left knee without any evidence of fractures / dislocations / joint effusions. Patient was given PRN analgesics for pain control. No further work up. Advised to follow up with PCP / Ortho for further discussion if pain / symptoms worsen. Medications: Aspirin 81mg Atorvastatin 40mg at dinner Losartan 25mg daily Follow up: PCP 3-5 days Cardiology 1-2 weeks. Physical Exam: GEN: Alert, oriented, NAD HEENT: Normal conjunctiva, sclera anicteric CV: Regular rate and rhythm, no edema Pulm: Nonlabored respirations on room air, clear bilaterally ABD: Soft, nontender, nondistended MSK: tenderness at right knee, mild swelling Neuro: Normal speech, normal affect Vital Signs/Physical Exam: Temp Pulse Resp BP Pulse Ox 98.2 F 86 15 133/71 97 12/31/23 16:00 12/31/23 16:00 12/31/23 16:00 12/31/23 16:00 12/31/23 16:00 Laboratory Data at Discharge: WBC 3.70 thou/uL (4.3-10.9) L 12/31/23 09:45 Hgb 13.2 g/dL (12.0-15.0) D 12/31/23 09:45 Hct 40.2 % (36.0-45.0) 12/31/23 09:45 Plt Count 236 thou/uL (152-406) 12/31/23 09:45 PT 12.9 SECONDS (9.5-12.5) H 12/29/23 19:45 INR 1.18 12/29/23 19:45 Sodium 141 mEq/L (136-145) 12/31/23 09:45 Potassium 3.7 mEq/L (3.5-5.1) D 12/31/23 09:45 BUN 7 mg/dL (7-18) 12/31/23 09:45 Creatinine 0.66 mg/dL (0.55-1.02) 12/31/23 09:45 Glucose 96 mg/dL (74-106) 12/31/23 09:45 Magnesium 2.2 mg/dL (1.6-2.4) 12/29/23 19:45 Total Bilirubin 0.7 mg/dL (0.2-1.0) 12/29/23 19:45 AST 56 U/L (15-37) H 12/29/23 19:45 ALT 40 U/L (13-56) 12/29/23 19:45 Alkaline Phosphatase 92 U/L (45-117) 12/29/23 19:45 Triglycerides 142 mg/dL (<150) 12/30/23 08:04 Cholesterol 168 mg/dL (<200) 12/30/23 08:04 HDL Cholesterol 26 mg/dL (40-60) L 12/30/23 08:04 Cholesterol/HDL Ratio 6.46 12/30/23 08:04 Lipase 32 U/L (13-75) 12/29/23 19:45 Home Medications: Duloxetine HCl 1 tab PO BID 12/30/23 Meloxicam 1 tab PO DAILY 12/30/23 Pregabalin [Lyrica*] 2 cap PO TID 12/30/23 Aspirin Chewable [Aspirin Chewable*] 81 mg PO DAILY 30 Days #30 tab.chew 12/31/23 Atorvastatin Calcium [Lipitor] 40 mg PO BEDTIME 30 Days #30 tab 12/31/23 Hydrocodone 5/APAP 325 [[place] 5/325] 1 tab PO Q8H PRN #10 tab 12/31/23 Losartan Potassium 25 mg PO DAILY 30 Days #30 tab 12/31/23 New Medications: Aspirin Chewable [Aspirin Chewable*] 81 mg PO DAILY 30 Days #30 tab.chew Atorvastatin Calcium [Lipitor] 40 mg PO BEDTIME 30 Days #30 tab Losartan Potassium 25 mg PO DAILY 30 Days #30 tab Hydrocodone 5/APAP 325 [[place] 5/325] 1 tab PO Q8H PRN #10 tab PRN Reason: Pain Physician Discharge Instructions: Patient presented to ED after syncopal episode. CTA chest without any acute findings or evidence of PE. Carotid ultrasound noted mild atherosclerosis otherwise negative. Echo with 60%EF, mild TR/MR. CT head / CT abdomen both negative for any acute findings. Did note chronic findings including Multi stone cholelithiasis, Mild chronic L1 compression deformity, Chronic right maxillary sinusitis. Chronic microvascular ischemic changes. Troponin mildly elevated but trended flat. urinalysis unremarkable. EKG was okay. Cardiology was consulted. Patient was taken to the OR for heart catheterization on 12/[address] Antunez. Found to have mild coronary artery disease. Recommended aspirin 81mg daily and atorvastatin. On day of discharged her blood pressure was noted to be elevated. Dr. Antunez recommended starting losartan 25mg. She was ambulating without issue except for some mild knee discomfort. Dr. Antunez recommends follow up in his office. She will need a long-term outpatient laborer heading and electrophysiology evaluation. Advised against driving until cleared by cardiology. In regards to knee pain: xray of the left knee without any evidence of fractures / dislocations / joint effusions. Patient was given PRN analgesics for pain control. No further work up. Advised to follow up with PCP / Ortho for further discussion if pain / symptoms worsen. Medications: Aspirin 81mg Atorvastatin 40mg at dinner Losartan 25mg daily Follow up: PCP 3-5 days Cardiology 1-2 weeks. Followup: Jeramy Beckman MD [Primary Care Provider] - Time spent managing pt's care (in minutes): 45
== END 2023-12-31 18:57 | disposition home or self-care (01) ==
LOC: ER 19:29 → ERHOLD 23:38 → 3RD-ICU 12-30 06:25
PROVIDERS: ADMIT Internal Medicine Nephrology; ATTEND Hospitalist
PROC: 4A023N7 Measurement of Cardiac Sampling and Pressure, Left Heart, Percutaneous Approach (ICD-10-PCS; principal; 2023-12-30)
PROC: B2111ZZ Fluoroscopy of Multiple Coronary Arteries using Low Osmolar Contrast (ICD-10-PCS; 2023-12-30)
DX: I21.4 Non-ST elevation (NSTEMI) myocardial infarction (principal); R55 Syncope and collapse; I25.10 Atherosclerotic heart disease of native coronary artery without angina pectoris; I10 Essential (primary) hypertension; M25.561 Pain in right knee; E78.5 Hyperlipidemia, unspecified; I65.29 Occlusion and stenosis of unspecified carotid artery; K80.20 Calculus of gallbladder without cholecystitis without obstruction; J32.0 Chronic maxillary sinusitis; Z79.899 Other long term (current) drug therapy; Z85.3 Personal history of malignant neoplasm of breast; Z90.10 Acquired absence of unspecified breast and nipple
CPT/HCPCS: 93005; 93306; 87040 ×2; 85025 ×3; 81001; 80048 ×3; 36415 ×2; 83735; 85610; 80061; 82947; 80076; 83605; 84484 ×4; 83690; 83880; 80307; 70450 ×2; 72125; 71275; 74177; 71045; 73562; 93458; 76937; 93880; 97116; 97161; 97530; Q9967; C1893; Q9966; C1760; G0269; J1644; J0360 ×3; J2001; J1650; J2250; J3010; G0378 ×5; J7040; J7030 ×3; J0696; 99152; 99153; J0461

== ENCOUNTER 2024-02-03 18:13 | Inpatient (IN) | payer OTHER ==
[2024-02-03] MEDS ORDERED: NA CHLORIDE 0.9% 2,000 ML ONE (18:27)
--- OUTSIDE RECORDS SUMMARY | 2024-02-03 18:32 | XMS REPORT | Continuity of Care Document ---
Author Name Unknown Address [address] [facility] [address] [place] [address] [facility] thconnect Address [address] [facility] [place] [address] Care Team Providers Care Twister In Name Role Phone Madonnalucretia Tati CHRISTIANSON Primary Care Physician [phone] CHARAN ZEPEDA Attending Clinician Unavail able HELEN BRADSHAW Attending Clinician Unavailable KAI GARCIA Attending Clinician Unavailable KAI GARCIA Attending Clinician Unavailable AGUILAR GUTIERREZ Attending Clinician Unavailable Charan Zepeda MD Attending Clinician [phone] Doctor Unassigned, [place] Attending Clinician U PAUL Koenig Attending Clinician UnavailPAUL Brown Attending Clinician UnavailOLLIE Elmore Attending Clinician UnavailAshlee Carpenter PTA Attending Clinician Unavail able Ashlee Harris OT Attending Clinician Unavail Paul Vivas MD Attending Clinician [phone] Paula CONTRERAS, Mohinder Faustin Attending Clinician U Chirag Trinh Attending Clinician UnavailSavana Ivory Attending Clinician [phone] SAVANA GRACE Attending Clinician Unavailable Silvina Person PT Attending Clinician Unavailabl e 9, [facility] Infusion Chair Attending Clinician Ollie Sales MD Attending Clinician [phone], [facility] Attending Clinician Unavailable HEIN FELTON Attending Clinician Unavaila ble 7, [facility] Infusion Chair Attending Clinician Alix Rollins PA-C, Belkis Attending Clinician [phone] BELKIS ROLLINS Attending Clinician Unavailabl e 5, [facility] Infusion Chair Attending Clinician Alix Minor MD, Yaneth Attending Clinician [phone] YANETH MINOR Attending Clinician Unavailable Kristine Norton MD Attending Clinician [phone], [facility] Infusion Chair Attending Clinician Derek silveira Pcp, Patient Does Not Have A Attending Clinician KRISTINE NORTON Attending Clinician Unavailabl madi 1, [facility] Infusion Chair Attending Clinician Lavon Kimbrough Attending Clinician + [phone], [facility] Infusion Chair Attending Clinician Alix Suh, [facility] Neu[facility] Resident Attending i denise Unavailable LAVON BLAKE Attending Clinician Unavailable LAVON BLAKE Attending Clinician Unavailable Raquel Wilks DO Attending Clinician [phone] TASH JENKINS Attending Clinician Unavailable Tash Naidu Attending Clinician [phone], [facility] Infusion Chair Attending Clinician Alix giron 10, [facility] Infusion Chair Attending Clinician TOBIAS Coughlin Attending Clinician Unavaila KEKE Chapin Attending Clinician Unavailyareli Barraza MD, Keke Ray Attending Clinician [phone] Ingrid Howard Attending Clinician [phone] Yoshi Sales DO Attending Clinician [phone] TATI ALEXANDER Attending Clinician Unavailable SURAJ BACA Attending Clinician Unavailable Suraj Baca MD Attending Clinician [phone] Ervin CONTRERAS, Davis Jones Attending Clinician UnavailLAVON Gould Attending Clinician Unavail able Dash ELLSWORTH PhD, Kaylene Olivas Attending Clinician LUZMA HOLT Attending Clinician UnavailLuzma Bunn Attending Clinician Fe ELLSWORTH, Audrey Anguiano Attending Clinician David CONTRERAS, Shayy Attending Clinician Unavailable TAMMY PADILLA Attending Clinician Unavailable Tati Samuel Attending Clinician [phone] Only, [facility] Test Attending Clinician Unavailable Jorge ELLSWORTH, Cody Attending Clinician [phone] NALINI FINLEY Attending Clinician Nalini Hillman MD Attending Clinician + [phone] Pob, [facility] Main Attending Clinician UnavailJEANNINE Reyna Attending Clinician Unavailable Lab, Ang - Db Attending Clinician Unavailable Messi Mandujano Attending Clinician [phone] MESSI WASHINGTON Attending Clinician Unavailable CHARAN ZEPEDA Admitting Clinician Unavail able Charan Zepeda MD Admitting Clinician [phone] KAI GARCIA Admitting Clinician Unavailable BELKIS ROLLINS Admitting Clinician UnavailTASH Duggan Admitting Clinician Unavailable KEKE BARRAZA Admitting Clinician UnavailKeke Guidry MD Admitting Clinician [phone] SURAJ BACA Admitting Clinician Unavailable LAVON ERIC Admitting Clinician Unavail able KRISTINE NORTON Admitting Clinician UnavailKristine Smith MD Admitting Clinician [phone] NALINI FINLEY Admitting Clinician TATI Ramirez Admitting Clinician Unavailable Payers Payer Name Policy Type Policy Number Effective Date Expirati on Date Source [employer] TOTAL CARE MEDICARE O DSNP [id number] 2017 00:00:00 CIGNA II [id number] 2022 00:00:00 MED[place] [id number] 2022 00:00:00 MEDICARE PART A \\T\\ B [id number] 2012 00:00:00 Problems Condition Name Condition Details Condition Category Status Onset Date Resolution Date Last Treatment Date Treating Clinician Comments Source Vitamin D deficiency Vitamin D deficiency Disease Active 2022-11 00:00: 00 [facility] Tobacco user Tobacco user Disease Active 2022-11 00:00: 00 [facility] Generalize d anxiety disorder Generalize d anxiety disorder Disease Active 2022-11 00:00: 00 [facility] Degenerati on of lumbar interverte bral disc Degenerati on of lumbar interverte bral disc Disease Active 2022-11 00:00: 00 [facility] Chronic pain disorder Chronic pain disorder Disease Active 2022-11 00:00: 00 [facility] Obesity Obesity Disease Active 2022-11 00:00: 00 [facility] Age-relate d osteoporos is without current pathologic al fracture Age-relate d osteoporos is without current pathologic al fracture Disease Active 2022-11 00:00: 00 [facility] At risk for falls At risk for falls Disease Active 2022-11 00:00: 00 [facility] Unspecifie d abnormalit ies of gait and mobility Unspecifie d abnormalit ies of gait and mobility Disease Active 2022-11 00:00: 00 [facility] Spasm of muscle Spasm of muscle Disease Active 07-08 00:00: 00 [facility] 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 Added automatic ally from request for surgery [id number] [facility] Hematemesi s, unspecifie d whether nausea present Hematemesi s, unspecifie d whether nausea present Disease Active 2021-11 00:00: 00 Overview: Formattin g of this note might be different from the original. Added automatic ally from request for surgery [id number] [facility] Family history of colon cancer in father Family history of colon cancer in father Disease Active 2021-11 215 00:00: 00 Overview: Formattin g of this note might be different from the original. 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, estrogen receptor positive Disease Active 06-25 00:00: 00 [facility] Acute pain of right shoulder Acute pain of right shoulder Disease Active 06-19 00:00: 00 [facility] Acute pain of right shoulder Acute pain of right shoulder Disease Active 06-19 00:00: 00 [facility] Malignant neoplasm of right breast greater than or equal to 2 cm in greatest dimension Malignant neoplasm of right breast greater than or equal to 2 cm in greatest dimension Disease Active 06-04 00:00: 00 Overview: Formattin g of this note might be different from the original. Added automatic ally from request for surgery [id number] [facility] Need for hepatitis C screening test Need for hepatitis C screening test Disease Active 03-19 00:00: 00 [facility] Breast mass, right Breast mass, right Disease Active 03-19 00:00: 00 [facility] Breast pain Breast pain Disease Active 03-19 00:00: 00 [facility] Encounter to establish care Encounter to establish care Disease Active 03-19 00:00: 00 [facility] Thyroid enlarged Thyroid enlarged Disease Active 03-19 00:00: 00 [facility] Type 2 diabetes mellitus without complicati on Type 2 diabetes mellitus without complicati on Disease Active 12-21 00:00: 00 [facility] Low back pain Low back pain Disease Active 2016-11 00:00: 00 [facility] Allergies, Adverse Reactions, Alerts Allergy Name Allergy Type Status Severity Reaction(s) Onset Date Inactive Date Treating Clinician Comments Source NO KNOWN ALLERGIE S Drug Class Active [facility] Social History Social Habit Start Date Stop Date Quantity Comments Source History of tobacco use Cigarette Smoker [facility] Gender identity [facility] Alcohol intake 2023-11-09 00:00:00 2023-11-09 00:00:00 Lifetime non-drinker (finding) [facility] History of Social function 2023-09-03 00:00:00 2023-09-03 00:00:00 [facility] Exposure to SARS-CoV-2 (event) 2023-04-19 00:00:00 2023-04-29 13:20:00 Not sure [facility] History SDOH Food Worry 2022-08-07 00:00:00 2022-08-07 00:00:00 1 [facility] History SDOH Food Scarcity 2022-08-07 00:00:00 2022-08-07 00:00:00 1 [facility] History SDOH Transport Med 2022-08-07 00:00:00 2022-08-07 00:00:00 2 [facility] History SDOH Transport Non-Med 2022-08-07 00:00:00 2022-08-07 00:00:00 2 [facility] Tobacco use and exposure 2022-06-25 00:00:00 2022-06-25 00:00:00 Smokeless tobacco non-user [facility] Cigarettes smoked current (pack per day) - Reported 2022-06-25 00:00:00 2022-06-25 00:00:00 [facility] Cigarette pack-years 2022-06-25 00:00:00 2022-06-25 00:00:00 [facility] Sex Ass[birth year] At 1955 00:00:00 1955 00:00:00 [facility] Smoking Status Start Date Stop Date Source Smokes tobacco daily 2022-06-25 00:00:00 [facility] Medications Ordered Medication Name Filled Medication Name Start Date Stop Date Current Medication? Ordering Clinician Indication Dosage Frequency Signature (SIG) Comments Components Source letrozole 2.5 mg tablet 2023-0 01-22 00:00: 00 Yes [id number] 2.5mg Take 1 tablet by mouth daily [facility] ondansetron 4 mg disintegrat ing tablet 2023-0 01-22 00:00: 00 Yes [id number] 4mg Take 1 tablet by mouth every 8 (eight) hours as needed (take when feeling nausea). [facility] letrozole 2.5 mg tablet 2023-0 01-22 00:00: 00 Yes [id number] 2.5mg Take 1 tablet by mouth daily [facility] ondansetron 4 mg disintegrat ing tablet 2023-0 01-22 00:00: 00 Yes [id number] 4mg Take 1 tablet by mouth every 8 (eight) hours as needed (take when feeling nausea). [facility] aspirin 81 mg chewable tablet 2023-0 12-31 00:00: 00 Yes 81mg Take 1 tablet by mouth in the morning. [facility] HYDROcodone -acetaminop hen 5-325 mg tablet 0 12-31 00:00: 00 Yes 1{tbl} Take 1 tablet by mouth every 8 (eight) hours as needed. [facility] atorvastati n 40 mg tablet 2023-0 2 00:00: 00 Yes 40mg Take 1 tablet by mouth at bedtime. [facility] losartan 25 mg tablet 0 2 00:00: 00 Yes 25mg Take 1 tablet by mouth in the morning. [facility] aspirin 81 mg chewable tablet 0 2 00:00: 00 Yes 81mg Take 1 tablet by mouth in the morning. [facility] HYDROcodone -acetaminop hen 5-325 mg tablet 0 2 00:00: 00 Yes 1{tbl} Take 1 tablet by mouth every 8 (eight) hours as needed. [facility] atorvastati n 40 mg tablet 4-0 2 00:00: 00 Yes 40mg Take 1 tablet by mouth at bedtime. [facility] losartan 25 mg tablet 12-31 00:00: 00 Yes 25mg Take 1 tablet by mouth in the morning. [facility] hydralAZINE (APRESOLINE ) injection 2022-11 18:58: 44 Yes PRN, Starting on Thu11/11/23 at 1258, Until Discontinu ed, STAT, Intra-op [facility] hydralAZINE (APRESOLINE ) injection 2022-11 18:58: 44 11-12 10:07 :05 No PRN, Starting on Thu11/11/23 at 1258, Until Khalida 11/12/23 at 0407, STAT, Intra-op [facility] lidocaine 1% (PF) (XYLOCAINE) injection 2022-11 18:22: 33 Yes PRN, Starting on Thu11/11/23 at 1222, Until Discontinu ed, Routine, Intra-op [facility] lidocaine 1% (PF) (XYLOCAINE) injection 2022-11 18:22: 33 11-12 10:07 :05 No PRN, Starting on Thu11/11/23 at 1222, Until Khalida 11/12/23 at 0407, Routine, Intra-op [facility] FENTanyl PF (SUBLIMAZE (PF)) injection 2022-11 18:20: 00 Yes Slow IV Push, PRN, Starting on Thu11/11/23 at 1220, Until Discontinu ed, Routine, Intra-op [facility] midazolam (VERSED) injection 2022-11 18:20: 00 Yes IV Push, PRN, Starting on Thu11/11/23 at 1220, Until Discontinu ed, Routine, Intra-op [facility] FENTanyl PF (SUBLIMAZE (PF)) injection 2022-11 18:20: 00 11-12 10:07 :05 No Slow IV Push, PRN, Starting on Thu11/11/23 at 1220, Until Khalida 11/12/23 at 0407, Routine, Intra-op [facility] midazolam (VERSED) injection 2022-11 18:20: 00 11-12 10:07 :05 No IV Push, PRN, Starting on Thu11/11/23 at 1220, Until Thu11/12/23 at 0407, Routine, Intra-op [facility] meloxicam 15 mg tablet 2022-11 00:00: 00 Yes [id number] 15mg Take 1 tablet by mouth every morning. [facility] pregabalin 75 mg capsule 2022-11 00:00: 00 Yes [id number] 150mg Take 2 capsules by mouth in the morning and 2 capsules at noon and 2 capsules in the evening. [facility] DULoxetine 60 mg capsule 2022-11 00:00: 00 Yes [id number] TAKE 1 CAPSULE BY MOUTH IN THE MORNING AND 1 CAPSULE IN THE EVENING [facility] meloxicam 15 mg tablet 2022-11 00:00: 00 Yes [id number] 15mg Take 1 tablet by mouth every morning. [facility] pregabalin 75 mg capsule 2022-11 00:00: 00 Yes [id number] 150mg Take 2 capsules by mouth in the morning and 2 capsules at noon and 2 capsules in the evening. [facility] DULoxetine 60 mg capsule 2022-11 00:00: 00 Yes [id number] TAKE 1 CAPSULE BY MOUTH IN THE MORNING AND 1 CAPSULE IN THE EVENING [facility] meloxicam 15 mg tablet 2022-11 00:00: 00 Yes [id number] 15mg Take 1 tablet by mouth every morning. [facility] pregabalin 75 mg capsule 2022-11 00:00: 00 Yes [id number] 150mg Take 2 capsules by mouth in the morning and 2 capsules at noon and 2 capsules in the evening. [facility] DULoxetine 60 mg capsule 2022-11 00:00: 00 Yes [id number] TAKE 1 CAPSULE BY MOUTH IN THE MORNING AND 1 CAPSULE IN THE EVENING [facility] meloxicam 15 mg tablet 2022-11 00:00: 00 Yes [id number] 15mg Take 1 tablet by mouth every morning. [facility] pregabalin 75 mg capsule 2022-11 00:00: 00 Yes [id number] 150mg Take 2 capsules by mouth in the morning and 2 capsules at noon and 2 capsules in the evening. [facility] DULoxetine 60 mg capsule 2022-11 00:00: 00 Yes [id number] TAKE 1 CAPSULE BY MOUTH IN THE MORNING AND 1 CAPSULE IN THE EVENING [facility] meloxicam 15 mg tablet 2022-11 00:00: 00 Yes [id number] 15mg Take 1 tablet by mouth every morning. [facility] pregabalin 75 mg capsule 2022-11 00:00: 00 Yes [id number] 150mg Take 2 capsules by mouth in the morning and 2 capsules at noon and 2 capsules in the evening. [facility] DULoxetine 60 mg capsule 2022-11 00:00: 00 Yes [id number] TAKE 1 CAPSULE BY MOUTH IN THE MORNING AND 1 CAPSULE IN THE EVENING [facility] meloxicam 15 mg tablet 2022-11 00:00: 00 Yes [id number] 15mg Take 1 tablet by mouth every morning. [facility] pregabalin 75 mg capsule 2022-11 00:00: 00 Yes [id number] 150mg Take 2 capsules by mouth in the morning and 2 capsules at noon and 2 capsules in the evening. [facility] DULoxetine 60 mg capsule 2022-11 00:00: 00 Yes [id number] TAKE 1 CAPSULE BY MOUTH IN THE MORNING AND 1 CAPSULE IN THE EVENING [facility] meloxicam 15 mg tablet 2022-11 00:00: 00 Yes [id number] 15mg Take 1 tablet by mouth every morning. [facility] pregabalin 75 mg capsule 2022-11 00:00: 00 Yes [id number] 150mg Take 2 capsules by mouth in the morning and 2 capsules at noon and 2 capsules in the evening. [facility] DULoxetine 60 mg capsule 2022-11 00:00: 00 Yes [id number] TAKE 1 CAPSULE BY MOUTH IN THE MORNING AND 1 CAPSULE IN THE EVENING [facility] meloxicam 15 mg tablet 2022-11 00:00: 00 Yes [id number] 15mg Take 1 tablet by mouth every morning. [facility] pregabalin 75 mg capsule 2022-11 00:00: 00 Yes [id number] 150mg Take 2 capsules by mouth in the morning and 2 capsules at noon and 2 capsules in the evening. [facility] DULoxetine 60 mg capsule 2022-11 00:00: 00 Yes [id number] TAKE 1 CAPSULE BY MOUTH IN THE MORNING AND 1 CAPSULE IN THE EVENING [facility] meloxicam 15 mg tablet 2022-11 00:00: 00 Yes [id number] 15mg Take 1 tablet by mouth every morning. [facility] pregabalin 75 mg capsule 2022-11 00:00: 00 Yes [id number] 150mg Take 2 capsules by mouth in the morning and 2 capsules at noon and 2 capsules in the evening. [facility] DULoxetine 60 mg capsule 2022-11 00:00: 00 Yes [id number] TAKE 1 CAPSULE BY MOUTH IN THE MORNING AND 1 CAPSULE IN THE EVENING [facility] meloxicam 15 mg tablet 2022-11 00:00: 00 Yes [id number] 15mg Take 1 tablet by mouth every morning. [facility] pregabalin 75 mg capsule 2022-11 00:00: 00 Yes [id number] 150mg Take 2 capsules by mouth in the morning and 2 capsules at noon and 2 capsules in the evening. [facility] DULoxetine 60 mg capsule 2022-11 00:00: 00 Yes [id number] TAKE 1 CAPSULE BY MOUTH IN THE MORNING AND 1 CAPSULE IN THE EVENING [facility] meloxicam 15 mg tablet 2022-11 00:00: 00 Yes [id number] 15mg Take 1 tablet by mouth every morning. [facility] pregabalin 75 mg capsule 2022-11 00:00: 00 Yes [id number] 150mg Take 2 capsules by mouth in the morning and 2 capsules at noon and 2 capsules in the evening. [facility] DULoxetine 60 mg capsule 2022-11 00:00: 00 Yes [id number] TAKE 1 CAPSULE BY MOUTH IN THE MORNING AND 1 CAPSULE IN THE EVENING [facility] meloxicam 15 mg tablet 2022-11 00:00: 00 Yes [id number] 15mg Take 1 tablet by mouth every morning. [facility] pregabalin 75 mg capsule 2022-11 00:00: 00 Yes [id number] 150mg Take 2 capsules by mouth in the morning and 2 capsules at noon and 2 capsules in the evening. [facility] DULoxetine 60 mg capsule 2022-11 00:00: 00 Yes [id number] TAKE 1 CAPSULE BY MOUTH IN THE MORNING AND 1 CAPSULE IN THE EVENING [facility] meloxicam 15 mg tablet 2022-11 00:00: 00 Yes [id number] 15mg Take 1 tablet by mouth every morning. [facility] pregabalin 75 mg capsule 2022-11 00:00: 00 Yes [id number] 150mg Take 2 capsules by mouth in the morning and 2 capsules at noon and 2 capsules in the evening. [facility] DULoxetine 60 mg capsule 2022-11 00:00: 00 Yes [id number] TAKE 1 CAPSULE BY MOUTH IN THE MORNING AND 1 CAPSULE IN THE EVENING [facility] meloxicam 15 mg tablet 2022-11 00:00: 00 Yes [id number] 15mg Take 1 tablet by mouth every morning. [facility] pregabalin 75 mg capsule 2022-11 00:00: 00 Yes [id number] 150mg Take 2 capsules by mouth in the morning and 2 capsules at noon and 2 capsules in the evening. [facility] DULoxetine 60 mg capsule 2022-11 00:00: 00 Yes [id number] TAKE 1 CAPSULE BY MOUTH IN THE MORNING AND 1 CAPSULE IN THE EVENING [facility] meloxicam 15 mg tablet 2022-11 00:00: 00 Yes [id number] 15mg Take 1 tablet by mouth every morning. [facility] pregabalin 75 mg capsule 2022-11 00:00: 00 Yes [id number] 150mg Take 2 capsules by mouth in the morning and 2 capsules at noon and 2 capsules in the evening. [facility] DULoxetine 60 mg capsule 2022-11 00:00: 00 Yes [id number] TAKE 1 CAPSULE BY MOUTH IN THE MORNING AND 1 CAPSULE IN THE EVENING [facility] trastuzumab -qyyp (TRAZIMERA) 480 mg in NaCl 0.9% (NS) 250 mL infusion 2022-11 18:15: 00 10-15 19:20 :00 No [id number] 6mg/kg 480 mg (rounded from 477 mg = 6 mg/kg ?79.5 kg Treatment plan Recorded weight), IV Infusion, ONCE, Administer over 60 Minutes, On Khalida 10/15/23 at 1215, For 1 dose
Sh ould be diluted in 0.9% Sodium Chloride only; DO NOT USE D5W. Diluted solutions may be stored in refrigerat or for up to 24 hours prior to use.
[facility] trastuzumab -qyyp (TRAZIMERA) 480 mg in NaCl 0.9% (NS) 250 mL infusion 2022-11 18:15: 00 10-15 19:20 :00 No [id number] 6mg/kg 480 mg (rounded from 477 mg = 6 mg/kg ?79.5 kg Treatment plan Recorded weight), IV Infusion, ONCE, Administer over 60 Minutes, On Khalida 10/15/23 at 1215, For 1 dose
Sh ould be diluted in 0.9% Sodium Chloride only; DO NOT USE D5W. Diluted solutions may be stored in refrigerat or for up to 24 hours prior to use.
[facility] acetaminoph en (TYLENOL) tablet 650 mg 2022-11 17:45: 00 10-15 17:45 :00 No [id number] 650mg 650 mg, Oral, ONCE, 1 dose, On Khalida 10/15/23 at 1145, Routine [facility] diphenhydrA MINE (BENADRYL) injection 25 mg 2022-11 17:45: 00 10-15 17:45 :00 No [id number] 25mg 25 mg, Slow IV Push, ONCE, 1 dose, On Thu10/15/23 at 1145, Routine [facility] acetaminoph en (TYLENOL) tablet 650 mg 2022-11 17:45: 00 10-15 17:45 :00 No [id number] 650mg 650 mg, Oral, ONCE, 1 dose, On Thu10/15/23 at 1145, Routine [facility] diphenhydrA MINE (BENADRYL) injection 25 mg 2022-11 17:45: 00 10-15 17:45 :00 No [id number] 25mg 25 mg, Slow IV Push, ONCE, 1 dose, On Thu10/15/23 at 1145, Routine [facility] atropine injection 0.25 mg 2022-11 17:30: 58 10-16 17:29 :58 No [id number] .25mg 0.25 mg, IV Push, PRN, Starting on Thu10/15/23 at 1130, Until Thu10/16/23 at 1129, Routine, Stomach cramping, acute flushing. [facility] albuterol (PROVENTIL) 2.5 mg /3 mL (0.083 %) nebulizer solution 2.5 mg 2022-11 17:30: 58 10-16 17:29 :58 No [id number] 2.5mg 2.5 mg, Inhalation , PRN - SEE INSTRUCTIO NS, Starting on Thu10/15/23 at 1130, Until Thu10/16/23 at 1129, Routine, Shortness of Breath, Wheezing, As needed for chemothera py reactions [facility] methylpredn isolone sod succ (SOLU-MEDRO L) injection 125 mg 2022-11 17:30: 58 10-16 17:29 :58 No [id number] 125mg 125 mg, Slow IV Push, Administer over 3 Minutes, PRN - SEE INSTRUCTIO NS, Starting on Thu10/15/23 at 1130, Until Thu10/16/23 at 1129, Routine, As needed for chemothera py reactions [facility] EPINEPHrine (EPIPEN AUTO-INJECT OR) 0.3 mg/0.3 mL injection 0.3 mg 2022-11 17:30: 58 10-16 17:29 :58 No [id number] .3mg 0.3 mg, Intramuscu lar, PRN - SEE INSTRUCTIO NS, Starting on Thu10/15/23 at 1130, Until Thu10/16/23 at 1129, Routine, As needed for chemothera py reactions [facility] [facility] MINE (BENADRYL) injection 50 mg 2022-11 17:30: 58 10-16 17:29 :58 No [id number] 50mg 50 mg, Slow IV Push, Administer over 2 Minutes, PRN - SEE INSTRUCTIO NS, Starting on Thu10/15/23 at 1130, Until Thu10/16/23 at 1129, Routine, As needed for chemothera py reactions< br>INDICAT ION: ANAPHYLAXI S [facility] heparin lock flush (HEPARIN LOCKFLUSH(P ORCINE)(PF) ) 100 unit/mL injection 500 Units 2022-11 17:30: 58 10-16 17:29 :58 No [id number] 500U 500 Units, IV Push, PRN, Starting on Thu10/15/23 at 1130, Until Thu10/16/23 at 1129, Routine [facility] atropine injection 0.25 mg 2022-11 17:30: 58 10-16 17:29 :58 No [id number] .25mg 0.25 mg, IV Push, PRN, Starting on Thu10/15/23 at 1130, Until Thu10/16/23 at 1129, Routine, Stomach cramping, acute flushing. [facility] albuterol (PROVENTIL) 2.5 mg /3 mL (0.083 %) nebulizer solution 2.5 mg 2022-11 17:30: 58 10-16 17:29 :58 No [id number] 2.5mg 2.5 mg, Inhalation , PRN - SEE INSTRUCTIO NS, Starting on Thu10/15/23 at 1130, Until Thu10/16/23 at 1129, Routine, Shortness of Breath, Wheezing, As needed for chemothera py reactions [facility] methylpredn isolone sod succ (SOLU-MEDRO L) injection 125 mg 2022-11 17:30: 58 10-16 17:29 :58 No [id number] 125mg 125 mg, Slow IV Push, Administer over 3 Minutes, PRN - SEE INSTRUCTIO NS, Starting on Thu10/15/23 at 1130, Until Thu10/16/23 at 1129, Routine, As needed for chemothera py reactions [facility] EPINEPHrine (EPIPEN AUTO-INJECT OR) 0.3 mg/0.3 mL injection 0.3 mg 2022-11 17:30: 58 10-16 17:29 :58 No [id number] .3mg 0.3 mg, Intramuscu lar, PRN - SEE INSTRUCTIO NS, Starting on Thu10/15/23 at 1130, Until Thu10/16/23 at 1129, Routine, As needed for chemothera py reactions [facility] diphenhydrA MINE (BENADRYL) injection 50 mg 2022-11 17:30: 58 10-16 17:29 :58 No [id number] 50mg 50 mg, Slow IV Push, Administer over 2 Minutes, PRN - SEE INSTRUCTIO NS, Starting on Thu10/15/23 at 1130, Until Thu10/16/23 at 1129, Routine, As needed for chemothera py reactions< br>INDICAT ION: ANAPHYLAXI S [facility] heparin lock flush (HEPARIN LOCKFLUSH(P ORCINE)(PF) ) 100 unit/mL injection 500 Units 2022-11 17:30: 58 10-16 17:29 :58 No [id number] 500U 500 Units, IV Push, PRN, Starting on Thu10/15/23 at 1130, Until Thu10/16/23 at 1129, Routine [facility] MELOXICAM 15 mg tablet 2022-11 00:00: 00 Yes [id number] 15mg TAKE 1 TABLET BY MOUTH EVERY DAY IN THE MORNING [facility] MELOXICAM 15 mg tablet 2022-11 00:00: 00 Yes [id number] 15mg TAKE 1 TABLET BY MOUTH EVERY DAY IN THE MORNING [facility] MELOXICAM 15 mg tablet 2022-11 00:00: 00 Yes [id number] 15mg TAKE 1 TABLET BY MOUTH EVERY DAY IN THE MORNING [facility] MELOXICAM 15 mg tablet 2022-11 00:00: 00 Yes [id number] 15mg TAKE 1 TABLET BY MOUTH EVERY DAY IN THE MORNING [facility] MELOXICAM 15 mg tablet 2022-11 00:00: 00 Yes [id number] 15mg TAKE 1 TABLET BY MOUTH EVERY DAY IN THE MORNING [facility] MELOXICAM 15 mg tablet 2022-11 00:00: 00 Yes [id number] 15mg TAKE 1 TABLET BY MOUTH EVERY DAY IN THE MORNING [facility] MELOXICAM 15 mg tablet 2022-11 00:00: 00 Yes [id number] 15mg TAKE 1 TABLET BY MOUTH EVERY DAY IN THE MORNING [facility] MELOXICAM 15 mg tablet 2022-11 00:00: 00 Yes [id number] 15mg TAKE 1 TABLET BY MOUTH EVERY DAY IN THE MORNING [facility] MELOXICAM 15 mg tablet 2022-11 00:00: 00 Yes [id number] 15mg TAKE 1 TABLET BY MOUTH EVERY DAY IN THE MORNING [facility] MELOXICAM 15 mg tablet 2022-11 00:00: 00 Yes [id number] 15mg TAKE 1 TABLET BY MOUTH EVERY DAY IN THE MORNING [facility] MELOXICAM 15 mg tablet 2022-11 00:00: 00 Yes [id number] 15mg TAKE 1 TABLET BY MOUTH EVERY DAY IN THE MORNING [facility] MELOXICAM 15 mg tablet 2022-11 00:00: 00 Yes [id number] 15mg TAKE 1 TABLET BY MOUTH EVERY DAY IN THE MORNING [facility] MELOXICAM 15 mg tablet 2022-11 00:00: 00 Yes [id number] 15mg TAKE 1 TABLET BY MOUTH EVERY DAY IN THE MORNING [facility] MELOXICAM 15 mg tablet 2022-11 00:00: 00 Yes [id number] 15mg TAKE 1 TABLET BY MOUTH EVERY DAY IN THE MORNING [facility] MELOXICAM 15 mg tablet 2022-11 00:00: 00 Yes [id number] 15mg TAKE 1 TABLET BY MOUTH EVERY DAY IN THE MORNING [facility] MELOXICAM 15 mg tablet 2022-11 00:00: 00 Yes [id number] 15mg TAKE 1 TABLET BY MOUTH EVERY DAY IN THE MORNING [facility] MELOXICAM 15 mg tablet 2022-11 00:00: 00 Yes [id number] 15mg TAKE 1 TABLET BY MOUTH EVERY DAY IN THE MORNING [facility] MELOXICAM 15 mg tablet 2022-11 00:00: 00 11-09 00:00 :00 No [id number] 15mg TAKE 1 TABLET BY MOUTH EVERY DAY IN THE MORNING [facility] MELOXICAM 15 mg tablet 2022-11 00:00: 00 11-09 00:00 :00 No [id number] 15mg TAKE 1 TABLET BY MOUTH EVERY DAY IN THE MORNING [facility] MELOXICAM 15 mg tablet 2022-11 00:00: 00 11-09 00:00 :00 No [id number] 15mg TAKE 1 TABLET BY MOUTH EVERY DAY IN THE MORNING [facility] MELOXICAM 15 mg tablet 2022-11 00:00: 00 11-09 00:00 :00 No [id number] 15mg TAKE 1 TABLET BY MOUTH EVERY DAY IN THE MORNING [facility] trastuzumab -qyyp (TRAZIMERA) 480 mg in NaCl 0.9% (NS) 250 mL infusion 2022-11 16:30: 00 09-24 18:05 :00 No [id number] 6mg/kg 480 mg (rounded from 477 mg = 6 mg/kg ?79.5 kg Treatment plan Recorded weight), IV Infusion, ONCE, Administer over 60 Minutes, On Khalida 09/24/23 at 1130, For 1 dose
Sh ould be diluted in 0.9% Sodium Chloride only; DO NOT USE D5W. Diluted solutions may be stored in refrigerat or for up to 24 hours prior to use.
[facility] trastuzumab -qyyp (TRAZIMERA) 480 mg in NaCl 0.9% (NS) 250 mL infusion 2022-11 16:30: 00 09-24 18:05 :00 No [id number] 6mg/kg 480 mg (rounded from 477 mg = 6 mg/kg ?79.5 kg Treatment plan Recorded weight), IV Infusion, ONCE, Administer over 60 Minutes, On Khalida 09/24/23 at 1130, For 1 dose
Sh ould be diluted in 0.9% Sodium Chloride only; DO NOT USE D5W. Diluted solutions may be stored in refrigerat or for up to 24 hours prior to use.
[facility] acetaminoph en (TYLENOL) tablet 650 mg 2022-11 16:00: 00 09-24 16:08 :00 No [id number] 650mg 650 mg, Oral, ONCE, 1 dose, On Khalida 09/24/23 at 1100, Routine [facility] diphenhydrA MINE (BENADRYL) injection 25 mg 2022-11 16:00: 00 09-24 16:08 :00 No [id number] 25mg 25 mg, Slow IV Push, ONCE, 1 dose, On Khalida 09/24/23 at 1100, Routine [facility] acetaminoph en (TYLENOL) tablet 650 mg 2022-11 16:00: 00 09-24 16:08 :00 No [id number] 650mg 650 mg, Oral, ONCE, 1 dose, On Khalida 09/24/23 at 1100, Routine [facility] diphenhydrA MINE (BENADRYL) injection 25 mg 2022-11 0 16:00: 00 09-24 16:08 :00 No [id number] 25mg 25 mg, Slow IV Push, ONCE, 1 dose, On Khalida 09/24/23 at 1100, Routine [facility] heparin lock flush (HEPARIN LOCKFLUSH(P ORCINE)(PF) ) 100 unit/mL injection 500 Units 2022-11 15:48: 27 09-25 15:47 :27 No [id number] 500U 500 Units, IV Push, PRN, Starting on Thu09/24/23 at 1048, Until Thu09/25/23 at 1047, Routine [facility] heparin lock flush (HEPARIN LOCKFLUSH(P ORCINE)(PF) ) 100 unit/mL injection 500 Units 2022-11 15:48: 27 09-24 20:32 :18 No [id number] 500U 500 Units, IV Push, PRN, Starting on Thu09/24/23 at 1048, Until Thu09/24/23 at 1532, Routine [facility] gadoteridol (PROHANCE-2 0 mL) injection 0.2 mL/kg 2022-11 14:45: 00 09-15 14:31 :00 No [id number] .2mL/kg 0.2 mL/kg, Intravenou s, ONCE, 1 dose, On Thu09/15/23 at 0945, Routine [facility] trastuzumab -qyyp (TRAZIMERA) 480 mg in NaCl 0.9% (NS) 250 mL infusion 2022-11 16:45: 00 09-03 17:50 :00 No [id number] 6mg/kg 480 mg (rounded from 477 mg = 6 mg/kg ?79.5 kg Treatment plan Recorded weight), IV Infusion, ONCE, Administer over 60 Minutes, On Thu09/03/23 at 1145, For 1 dose
Sh ould be diluted in 0.9% Sodium Chloride only; DO NOT USE D5W. Diluted solutions may be stored in refrigerat or for up to 24 hours prior to use.
[facility] acetaminoph en (TYLENOL) tablet 650 mg 2022-11 16:15: 00 09-03 16:13 :00 No [id number] 650mg 650 mg, Oral, ONCE, 1 dose, On Thu09/03/23 at 1115, Routine [facility] diphenhydrA MINE (BENADRYL) injection 25 mg 2022-11 0 16:15: 00 09-03 16:18 :00 No [id number] 25mg 25 mg, Slow IV Push, ONCE, 1 dose, On Khalida 09/03/23 at 1115, Routine [facility] heparin lock flush (HEPARIN LOCKFLUSH(P ORCINE)(PF) ) 100 unit/mL injection 500 Units 2022-11 0 16:10: 33 09-04 16:09 :33 No [id number] 500U 500 Units, IV Push, PRN, Starting on Khalida 09/03/23 at 1110, Until Thu09/04/23 at 1109, Routine [facility] DULoxetine 60 mg capsule 2022-11 0 00:00: 00 Yes [id number] TAKE 1 CAPSULE BY MOUTH IN THE MORNING AND 1 CAPSULE IN THE EVENING [facility] DULoxetine 60 mg capsule 2022-11 0- 00:00: 00 Yes [id number] TAKE 1 CAPSULE BY MOUTH IN THE MORNING AND 1 CAPSULE IN THE EVENING [facility] DULoxetine 60 mg capsule 2022-11 0- 00:00: 00 Yes [id number] TAKE 1 CAPSULE BY MOUTH IN THE MORNING AND 1 CAPSULE IN THE EVENING [facility] DULoxetine 60 mg capsule 2022-11 0- 00:00: 00 Yes [id number] TAKE 1 CAPSULE BY MOUTH IN THE MORNING AND 1 CAPSULE IN THE EVENING [facility] DULoxetine 60 mg capsule 2022-11 0- 00:00: 00 Yes [id number] TAKE 1 CAPSULE BY MOUTH IN THE MORNING AND 1 CAPSULE IN THE EVENING [facility] DULoxetine 60 mg capsule 2022-11 0- 00:00: 00 Yes [id number] TAKE 1 CAPSULE BY MOUTH IN THE MORNING AND 1 CAPSULE IN THE EVENING [facility] DULoxetine 60 mg capsule 2022-11 0- 00:00: 00 Yes [id number] TAKE 1 CAPSULE BY MOUTH IN THE MORNING AND 1 CAPSULE IN THE EVENING [facility] DULoxetine 60 mg capsule 2022-11 0- 00:00: 00 Yes [id number] TAKE 1 CAPSULE BY MOUTH IN THE MORNING AND 1 CAPSULE IN THE EVENING [facility] 2022-1 0-04 00:00: 00 Yes [id number] TAKE 1 CAPSULE BY MOUTH IN THE MORNING AND 1 CAPSULE IN THE EVENING [facility] capsule 2022-1 0- 00:00: 00 Yes [id number] TAKE 1 CAPSULE BY MOUTH IN THE MORNING AND 1 CAPSULE IN THE EVENING [facility] mg capsule 3-1 0-04 00:00: 00 Yes [id number] TAKE 1 CAPSULE BY MOUTH IN THE MORNING AND 1 CAPSULE IN THE EVENING [facility] D[facility] mg capsule 2022-1 0- 00:00: 00 Yes [id number] TAKE 1 CAPSULE BY MOUTH IN THE MORNING AND 1 CAPSULE IN THE EVENING [facility] D[facility] mg capsule 3-1 0- 00:00: 00 Yes [id number] TAKE 1 CAPSULE BY MOUTH IN THE MORNING AND 1 CAPSULE IN THE EVENING [facility] D[facility] mg capsule 3-1 0- 00:00: 00 Yes [id number] TAKE 1 CAPSULE BY MOUTH IN THE MORNING AND 1 CAPSULE IN THE EVENING [facility] DULoxetine 60 mg capsule 3-1 0- 00:00: 00 Yes [id number] TAKE 1 CAPSULE BY MOUTH IN THE MORNING AND 1 CAPSULE IN THE EVENING [facility] DULoxetine 60 mg capsule 3-1 0- 00:00: 00 Yes [id number] TAKE 1 CAPSULE BY MOUTH IN THE MORNING AND 1 CAPSULE IN THE EVENING [facility] D[facility] mg capsule 3-1 0- 00:00: 00 Yes [id number] TAKE 1 CAPSULE BY MOUTH IN THE MORNING AND 1 CAPSULE IN THE EVENING [facility] D[facility] mg capsule 3-1 0- 00:00: 00 Yes [id number] TAKE 1 CAPSULE BY MOUTH IN THE MORNING AND 1 CAPSULE IN THE EVENING [facility] D[facility] mg capsule 3-1 0- 00:00: 00 Yes [id number] TAKE 1 CAPSULE BY MOUTH IN THE MORNING AND 1 CAPSULE IN THE EVENING [facility] DULoxetine 60 mg capsule 2022- 0-04 00:00: 00 Yes [id number] TAKE 1 CAPSULE BY MOUTH IN THE MORNING AND 1 CAPSULE IN THE EVENING [facility] DULoxetine 60 mg capsule 3-1 0-04 00:00: 00 Yes [id number] TAKE 1 CAPSULE BY MOUTH IN THE MORNING AND 1 CAPSULE IN THE EVENING [facility] DULoxetine 60 mg capsule 3-1 0- 00:00: 00 Yes [id number] TAKE 1 CAPSULE BY MOUTH IN THE MORNING AND 1 CAPSULE IN THE EVENING [facility] DULoxetine 60 mg capsule 3-1 0- 00:00: 00 Yes [id number] TAKE 1 CAPSULE BY MOUTH IN THE MORNING AND 1 CAPSULE IN THE EVENING [facility] D[facility] mg capsule 2022- 0- 00:00: 00 Yes [id number] TAKE 1 CAPSULE BY MOUTH IN THE MORNING AND 1 CAPSULE IN THE EVENING [facility] D[facility] mg capsule 2022-1 0- 00:00: 00 Yes [id number] TAKE 1 CAPSULE BY MOUTH IN THE MORNING AND 1 CAPSULE IN THE EVENING [facility] DULoxetine 60 mg capsule 3-1 0- 00:00: 00 Yes [id number] TAKE 1 CAPSULE BY MOUTH IN THE MORNING AND 1 CAPSULE IN THE EVENING [facility] D[facility] mg capsule 2022-1 0-04 00:00: 00 Yes [id number] TAKE 1 CAPSULE BY MOUTH IN THE MORNING AND 1 CAPSULE IN THE EVENING [facility] D[facility] mg capsule 3-1 0-04 00:00: 00 Yes [id number] TAKE 1 CAPSULE BY MOUTH IN THE MORNING AND 1 CAPSULE IN THE EVENING [facility] DULoxetine 60 mg capsule 3-1 0-04 00:00: 00 Yes [id number] TAKE 1 CAPSULE BY MOUTH IN THE MORNING AND 1 CAPSULE IN THE EVENING [facility] DULoxetine 60 mg capsule 3-1 0-04 00:00: 00 Yes [id number] TAKE 1 CAPSULE BY MOUTH IN THE MORNING AND 1 CAPSULE IN THE EVENING [facility] DULoxetine 60 mg capsule 3-1 0-04 00:00: 00 Yes [id number] TAKE 1 CAPSULE BY MOUTH IN THE MORNING AND 1 CAPSULE IN THE EVENING [facility] DULoxetine 60 mg capsule 2022-11 0-04 00:00: 00 Yes [id number] TAKE 1 CAPSULE BY MOUTH IN THE MORNING AND 1 CAPSULE IN THE EVENING [facility] DULoxetine 60 mg capsule 2022-11 0-04 00:00: 00 Yes [id number] TAKE 1 CAPSULE BY MOUTH IN THE MORNING AND 1 CAPSULE IN THE EVENING [facility] DULoxetine 60 mg capsule 2022-11 0-04 00:00: 00 11-09 00:00 :00 No [id number] TAKE 1 CAPSULE BY MOUTH IN THE MORNING AND 1 CAPSULE IN THE EVENING [facility] DULoxetine 60 mg capsule 2022-11 0-04 00:00: 00 11-09 00:00 :00 No [id number] TAKE 1 CAPSULE BY MOUTH IN THE MORNING AND 1 CAPSULE IN THE EVENING [facility] DULoxetine 60 mg capsule 2022-11 0-04 00:00: 00 11-09 00:00 :00 No [id number] TAKE 1 CAPSULE BY MOUTH IN THE MORNING AND 1 CAPSULE IN THE EVENING [facility] DULoxetine 60 mg capsule 2022-11 0-04 00:00: 00 11-09 00:00 :00 No [id number] TAKE 1 CAPSULE BY MOUTH IN THE MORNING AND 1 CAPSULE IN THE EVENING [facility] trastuzumab -qyyp (TRAZIMERA) 480 mg in NaCl 0.9% (NS) 250 mL infusion 08-13 17:15: 00 08-13 18:06 :00 No [id number] 6mg/kg 480 mg (rounded from 477 mg = 6 mg/kg ?79.5 kg Treatment plan Recorded weight), IV Infusion, ONCE, Administer over 60 Minutes, On Khalida 08/13/23 at 1215, For 1 dose
Sh ould be diluted in 0.9% Sodium Chloride only; DO NOT USE D5W. Diluted solutions may be stored in refrigerat or for up to 24 hours prior to use.
[facility] acetaminoph en (TYLENOL) tablet 650 mg 2023-0 9-14 16:45: 00 08-13 16:52 :00 No [id number] 650mg 650 mg, Oral, ONCE, 1 dose, On Thu08/13/23 at 1145, Routine [facility] diphenhydrA MINE (BENADRYL) injection 25 mg 08-13 16:45: 00 08-13 16:46 :00 No [id number] 25mg 25 mg, Slow IV Push, ONCE, 1 dose, On Thu08/13/23 at 1145, Routine [facility] heparin lock flush (HEPARIN LOCKFLUSH(P ORCINE)(PF) ) 100 unit/mL injection 500 Units 08-13 16:33: 16 08-14 16:32 :16 No [id number] 500U 500 Units, IV Push, PRN, Starting on Thu08/13/23 at 1133, Until Thu08/14/23 at 1132, Routine [facility] trastuzumab -qyyp (TRAZIMERA) 480 mg in NaCl 0.9% (NS) 250 mL infusion 07-23 17:00: 00 07-23 17:55 :00 No [id number] 6mg/kg 480 mg (rounded from 477 mg = 6 mg/kg ?79.5 kg Treatment plan Recorded weight), IV Infusion, ONCE, Administer over 60 Minutes, On Thu07/23/23 at 1200, For 1 dose
Sh ould be diluted in 0.9% Sodium Chloride only; DO NOT USE D5W. Diluted solutions may be stored in refrigerat or for up to 24 hours prior to use.
[facility] acetaminoph en (TYLENOL) tablet 650 mg 07-23 16:30: 00 07-23 16:28 :00 No [id number] 650mg 650 mg, Oral, ONCE, 1 dose, On Thu07/23/23 at 1130, Routine [facility] diphenhydrA MINE (BENADRYL) injection 25 mg 07-23 16:30: 00 07-23 16:35 :00 No [id number] 25mg 25 mg, Slow IV Push, ONCE, 1 dose, On Thu07/23/23 at 1130, Routine [facility] heparin lock flush (HEPARIN LOCKFLUSH(P ORCINE)(PF) ) 100 unit/mL injection 500 Units 07-23 16:21: 45 07-24 16:20 :45 No [id number] 500U 500 Units, IV Push, PRN, Starting on Thu07/23/23 at 1121, Until Thu07/24/23 at 1120, Routine [facility] DULoxetine 60 mg capsule 07-06 00:00: 00 Yes [id number] Take 1 capsule by mouth twice daily [facility] pregabalin 75 mg capsule 07-06 00:00: 00 Yes [id number] 150mg Take 2 capsules by mouth in the morning and 2 capsules at noon and 2 capsules in the evening. [facility] meloxicam 15 mg tablet 07-06 00:00: 00 Yes [id number] 15mg Take 1 tablet by mouth in the morning. [facility] DULoxetine 60 mg capsule 07-06 00:00: 00 Yes [id number] Take 1 capsule by mouth twice daily [facility] pregabalin 75 mg capsule 07-06 00:00: 00 Yes [id number] 150mg Take 2 capsules by mouth in the morning and 2 capsules at noon and 2 capsules in the evening. [facility] meloxicam 15 mg tablet 07-06 00:00: 00 Yes [id number] 15mg Take 1 tablet by mouth in the morning. [facility] DULoxetine 60 mg capsule 07-06 00:00: 00 Yes [id number] Take 1 capsule by mouth twice daily [facility] pregabalin 75 mg capsule 07-06 00:00: 00 Yes [id number] 150mg Take 2 capsules by mouth in the morning and 2 capsules at noon and 2 capsules in the evening. [facility] meloxicam 15 mg tablet 07-06 00:00: 00 Yes [id number] 15mg Take 1 tablet by mouth in the morning. [facility] DULoxetine 60 mg capsule 2022-0 07-06 00:00: 00 Yes [id number] Take 1 capsule by mouth twice daily [facility] pregabalin 75 mg capsule 2022-0 07-06 00:00: 00 Yes [id number] 150mg Take 2 capsules by mouth in the morning and 2 capsules at noon and 2 capsules in the evening. [facility] meloxicam 15 mg tablet 2022-0 07-06 00:00: 00 Yes [id number] 15mg Take 1 tablet by mouth in the morning. [facility] DULoxetine 60 mg capsule 2022-0 07-06 00:00: 00 Yes [id number] Take 1 capsule by mouth twice daily [facility] pregabalin 75 mg capsule 2022-0 07-06 00:00: 00 Yes [id number] 150mg Take 2 capsules by mouth in the morning and 2 capsules at noon and 2 capsules in the evening. [facility] meloxicam 15 mg tablet 2022-0 07-06 00:00: 00 Yes [id number] 15mg Take 1 tablet by mouth in the morning. [facility] DULoxetine 60 mg capsule 2022-0 07-06 00:00: 00 Yes [id number] Take 1 capsule by mouth twice daily [facility] pregabalin 75 mg capsule 2022-0 07-06 00:00: 00 Yes [id number] 150mg Take 2 capsules by mouth in the morning and 2 capsules at noon and 2 capsules in the evening. [facility] meloxicam 15 mg tablet 2022-0 07-06 00:00: 00 Yes [id number] 15mg Take 1 tablet by mouth in the morning. [facility] DULoxetine 60 mg capsule 2022-0 07-06 00:00: 00 Yes [id number] Take 1 capsule by mouth twice daily [facility] pregabalin 75 mg capsule 2022-0 07-06 00:00: 00 Yes [id number] 150mg Take 2 capsules by mouth in the morning and 2 capsules at noon and 2 capsules in the evening. [facility] meloxicam 15 mg tablet 2022-0 07-06 00:00: 00 Yes [id number] 15mg Take 1 tablet by mouth in the morning. [facility] DULoxetine 60 mg capsule 2022-0 07-06 00:00: 00 Yes [id number] Take 1 capsule by mouth twice daily [facility] pregabalin 75 mg capsule 3-0 07-06 00:00: 00 Yes [id number] 150mg Take 2 capsules by mouth in the morning and 2 capsules at noon and 2 capsules in the evening. [facility] meloxicam 15 mg tablet 2022-0 07-06 00:00: 00 Yes [id number] 15mg Take 1 tablet by mouth in the morning. [facility] DULoxetine 60 mg capsule 2022-0 07-06 00:00: 00 Yes [id number] Take 1 capsule by mouth twice daily [facility] pregabalin 75 mg capsule 2022-0 07-06 00:00: 00 Yes [id number] 150mg Take 2 capsules by mouth in the morning and 2 capsules at noon and 2 capsules in the evening. [facility] meloxicam 15 mg tablet 2022-0 07-06 00:00: 00 Yes [id number] 15mg Take 1 tablet by mouth in the morning. [facility] DULoxetine 60 mg capsule 2022-0 07-06 00:00: 00 Yes [id number] Take 1 capsule by mouth twice daily [facility] pregabalin 75 mg capsule 2022-0 07-06 00:00: 00 Yes [id number] 150mg Take 2 capsules by mouth in the morning and 2 capsules at noon and 2 capsules in the evening. [facility] meloxicam 15 mg tablet 2022-0 07-06 00:00: 00 Yes [id number] 15mg Take 1 tablet by mouth in the morning. [facility] DULoxetine 60 mg capsule 2022-0 07-06 00:00: 00 Yes [id number] Take 1 capsule by mouth twice daily [facility] pregabalin 75 mg capsule 3-0 07-06 00:00: 00 Yes [id number] 150mg Take 2 capsules by mouth in the morning and 2 capsules at noon and 2 capsules in the evening. [facility] meloxicam 15 mg tablet 2022-0 07-06 00:00: 00 Yes [id number] 15mg Take 1 tablet by mouth in the morning. [facility] DULoxetine 60 mg capsule 2022-0 07-06 00:00: 00 Yes [id number] Take 1 capsule by mouth twice daily [facility] pregabalin 75 mg capsule 2022-0 07-06 00:00: 00 Yes [id number] 150mg Take 2 capsules by mouth in the morning and 2 capsules at noon and 2 capsules in the evening. [facility] meloxicam 15 mg tablet 2022-0 07-06 00:00: 00 Yes [id number] 15mg Take 1 tablet by mouth in the morning. [facility] DULoxetine 60 mg capsule 2022-0 07-06 00:00: 00 Yes [id number] Take 1 capsule by mouth twice daily [facility] pregabalin 75 mg capsule 2022-0 07-06 00:00: 00 Yes [id number] 150mg Take 2 capsules by mouth in the morning and 2 capsules at noon and 2 capsules in the evening. [facility] meloxicam 15 mg tablet 2022-0 07-06 00:00: 00 Yes [id number] 15mg Take 1 tablet by mouth in the morning. [facility] DULoxetine 60 mg capsule 2022-0 07-06 00:00: 00 Yes [id number] Take 1 capsule by mouth twice daily [facility] pregabalin 75 mg capsule 2022-0 07-06 00:00: 00 Yes [id number] 150mg Take 2 capsules by mouth in the morning and 2 capsules at noon and 2 capsules in the evening. [facility] meloxicam 15 mg tablet 2022-0 07-06 00:00: 00 Yes [id number] 15mg Take 1 tablet by mouth in the morning. [facility] DULoxetine 60 mg capsule 2022-0 07-06 00:00: 00 Yes [id number] Take 1 capsule by mouth twice daily [facility] pregabalin 75 mg capsule 2022-0 07-06 00:00: 00 Yes [id number] 150mg Take 2 capsules by mouth in the morning and 2 capsules at noon and 2 capsules in the evening. [facility] meloxicam 15 mg tablet 3-0 8 00:00: 00 Yes [id number] 15mg Take 1 tablet by mouth in the morning. [facility] pregabalin 75 mg capsule 2022-0 8 00:00: 00 Yes [id number] 150mg Take 2 capsules by mouth in the morning and 2 capsules at noon and 2 capsules in the evening. [facility] meloxicam 15 mg tablet 3-0 07-06 00:00: 00 Yes [id number] 15mg Take 1 tablet by mouth in the morning. [facility] pregabalin 75 mg capsule 2022-0 07-06 00:00: 00 Yes [id number] 150mg Take 2 capsules by mouth in the morning and 2 capsules at noon and 2 capsules in the evening. [facility] meloxicam 15 mg tablet 2022-0 07-06 00:00: 00 Yes [id number] 15mg Take 1 tablet by mouth in the morning. [facility] pregabalin 75 mg capsule 3-0 07-06 00:00: 00 Yes [id number] 150mg Take 2 capsules by mouth in the morning and 2 capsules at noon and 2 capsules in the evening. [facility] meloxicam 15 mg tablet 2022-0 07-06 00:00: 00 Yes [id number] 15mg Take 1 tablet by mouth in the morning. [facility] pregabalin 75 mg capsule 3-0 07-06 00:00: 00 Yes [id number] 150mg Take 2 capsules by mouth in the morning and 2 capsules at noon and 2 capsules in the evening. [facility] meloxicam 15 mg tablet 3-0 07-06 00:00: 00 Yes [id number] 15mg Take 1 tablet by mouth in the morning. [facility] pregabalin 75 mg capsule 3-0 07-06 00:00: 00 Yes [id number] 150mg Take 2 capsules by mouth in the morning and 2 capsules at noon and 2 capsules in the evening. [facility] meloxicam 15 mg tablet 2023-0 8- 00:00: 00 Yes [id number] 15mg Take 1 tablet by mouth in the morning. [facility] pregabalin 75 mg capsule 3-0 8 00:00: 00 Yes [id number] 150mg Take 2 capsules by mouth in the morning and 2 capsules at noon and 2 capsules in the evening. [facility] meloxicam 15 mg tablet 3-0 8 00:00: 00 Yes [id number] 15mg Take 1 tablet by mouth in the morning. [facility] pregabalin 75 mg capsule 3-0 8 00:00: 00 Yes [id number] 150mg Take 2 capsules by mouth in the morning and 2 capsules at noon and 2 capsules in the evening. [facility] meloxicam 15 mg tablet 3-0 07-06 00:00: 00 Yes [id number] 15mg Take 1 tablet by mouth in the morning. [facility] pregabalin 75 mg capsule 3-0 07-06 00:00: 00 Yes [id number] 150mg Take 2 capsules by mouth in the morning and 2 capsules at noon and 2 capsules in the evening. [facility] meloxicam 15 mg tablet 3-0 07-06 00:00: 00 Yes [id number] 15mg Take 1 tablet by mouth in the morning. [facility] pregabalin 75 mg capsule 3-0 07-06 00:00: 00 Yes [id number] 150mg Take 2 capsules by mouth in the morning and 2 capsules at noon and 2 capsules in the evening. [facility] meloxicam 15 mg tablet 3-0 07-06 00:00: 00 Yes [id number] 15mg Take 1 tablet by mouth in the morning. [facility] pregabalin 75 mg capsule 3-0 07-06 00:00: 00 Yes [id number] 150mg Take 2 capsules by mouth in the morning and 2 capsules at noon and 2 capsules in the evening. [facility] meloxicam 15 mg tablet 3-0 8- 00:00: 00 Yes [id number] 15mg Take 1 tablet by mouth in the morning. [facility] pregabalin 75 mg capsule 3-0 8 00:00: 00 Yes [id number] 150mg Take 2 capsules by mouth in the morning and 2 capsules at noon and 2 capsules in the evening. [facility] meloxicam 15 mg tablet 3-0 07-06 00:00: 00 Yes [id number] 15mg Take 1 tablet by mouth in the morning. [facility] pregabalin 75 mg capsule 3-0 07-06 00:00: 00 Yes [id number] 150mg Take 2 capsules by mouth in the morning and 2 capsules at noon and 2 capsules in the evening. [facility] meloxicam 15 mg tablet 2022-0 07-06 00:00: 00 Yes [id number] 15mg Take 1 tablet by mouth in the morning. [facility] pregabalin 75 mg capsule 3-0 07-06 00:00: 00 Yes [id number] 150mg Take 2 capsules by mouth in the morning and 2 capsules at noon and 2 capsules in the evening. [facility] meloxicam 15 mg tablet 3-0 07-06 00:00: 00 Yes [id number] 15mg Take 1 tablet by mouth in the morning. [facility] pregabalin 75 mg capsule 3-0 07-06 00:00: 00 Yes [id number] 150mg Take 2 capsules by mouth in the morning and 2 capsules at noon and 2 capsules in the evening. [facility] meloxicam 15 mg tablet 3-0 07-06 00:00: 00 Yes [id number] 15mg Take 1 tablet by mouth in the morning. [facility] pregabalin 75 mg capsule 3-0 07-06 00:00: 00 Yes [id number] 150mg Take 2 capsules by mouth in the morning and 2 capsules at noon and 2 capsules in the evening. [facility] meloxicam 15 mg tablet 3-0 07-06 00:00: 00 Yes [id number] 15mg Take 1 tablet by mouth in the morning. [facility] pregabalin 75 mg capsule 3-0 8 00:00: 00 Yes [id number] 150mg Take 2 capsules by mouth in the morning and 2 capsules at noon and 2 capsules in the evening. [facility] pregabalin 75 mg capsule 3-0 8- 00:00: 00 Yes [id number] 150mg Take 2 capsules by mouth in the morning and 2 capsules at noon and 2 capsules in the evening. [facility] pregabalin 75 mg capsule 3-0 8 00:00: 00 Yes [id number] 150mg Take 2 capsules by mouth in the morning and 2 capsules at noon and 2 capsules in the evening. [facility] pregabalin 75 mg capsule 3-0 8 00:00: 00 Yes [id number] 150mg Take 2 capsules by mouth in the morning and 2 capsules at noon and 2 capsules in the evening. [facility] pregabalin 75 mg capsule 3-0 8 00:00: 00 Yes [id number] 150mg Take 2 capsules by mouth in the morning and 2 capsules at noon and 2 capsules in the evening. [facility] pregabalin 75 mg capsule 3-0 07-06 00:00: 00 Yes [id number] 150mg Take 2 capsules by mouth in the morning and 2 capsules at noon and 2 capsules in the evening. [facility] pregabalin 75 mg capsule 3-0 07-06 00:00: 00 Yes [id number] 150mg Take 2 capsules by mouth in the morning and 2 capsules at noon and 2 capsules in the evening. [facility] pregabalin 75 mg capsule 3-0 07-06 00:00: 00 Yes [id number] 150mg Take 2 capsules by mouth in the morning and 2 capsules at noon and 2 capsules in the evening. [facility] pregabalin 75 mg capsule 3-0 8 00:00: 00 Yes [id number] 150mg Take 2 capsules by mouth in the morning and 2 capsules at noon and 2 capsules in the evening. [facility] pregabalin 75 mg capsule 3-0 8- 00:00: 00 Yes [id number] 150mg Take 2 capsules by mouth in the morning and 2 capsules at noon and 2 capsules in the evening. [facility] pregabalin 75 mg capsule 3-0 8- 00:00: 00 Yes [id number] 150mg Take 2 capsules by mouth in the morning and 2 capsules at noon and 2 capsules in the evening. [facility] pregabalin 75 mg capsule 3-0 8 00:00: 00 Yes [id number] 150mg Take 2 capsules by mouth in the morning and 2 capsules at noon and 2 capsules in the evening. [facility] pregabalin 75 mg capsule 3-0 8- 00:00: 00 Yes [id number] 150mg Take 2 capsules by mouth in the morning and 2 capsules at noon and 2 capsules in the evening. [facility] pregabalin 75 mg capsule 3-0 8 00:00: 00 Yes [id number] 150mg Take 2 capsules by mouth in the morning and 2 capsules at noon and 2 capsules in the evening. [facility] pregabalin 75 mg capsule 3-0 8 00:00: 00 Yes [id number] 150mg Take 2 capsules by mouth in the morning and 2 capsules at noon and 2 capsules in the evening. [facility] pregabalin 75 mg capsule 3-0 8 00:00: 00 Yes [id number] 150mg Take 2 capsules by mouth in the morning and 2 capsules at noon and 2 capsules in the evening. [facility] pregabalin 75 mg capsule 3-0 8 00:00: 00 Yes [id number] 150mg Take 2 capsules by mouth in the morning and 2 capsules at noon and 2 capsules in the evening. [facility] pregabalin 75 mg capsule 3-0 8 00:00: 00 Yes [id number] 150mg Take 2 capsules by mouth in the morning and 2 capsules at noon and 2 capsules in the evening. [facility] pregabalin 75 mg capsule 3-0 8- 00:00: 00 11-09 00:00 :00 No [id number] 150mg Take 2 capsules by mouth in the morning and 2 capsules at noon and 2 capsules in the evening. [facility] pregabalin 75 mg capsule 07-06 00:00: 00 11-09 00:00 :00 No [id number] 150mg Take 2 capsules by mouth in the morning and 2 capsules at noon and 2 capsules in the evening. [facility] pregabalin 75 mg capsule 07-06 00:00: 00 11-09 00:00 :00 No [id number] 150mg Take 2 capsules by mouth in the morning and 2 capsules at noon and 2 capsules in the evening. [facility] pregabalin 75 mg capsule 07-06 00:00: 00 11-09 00:00 :00 No [id number] 150mg Take 2 capsules by mouth in the morning and 2 capsules at noon and 2 capsules in the evening. [facility] meloxicam 15 mg tablet 07-06 00:00: 00 10-05 00:00 :00 No [id number] 15mg Take 1 tablet by mouth in the morning. [facility] meloxicam 15 mg tablet 07-06 00:00: 00 10-05 00:00 :00 No [id number] 15mg Take 1 tablet by mouth in the morning. [facility] DULoxetine 60 mg capsule 07-06 00:00: 00 09-02 00:00 :00 No [id number] Take 1 capsule by mouth twice daily [facility] trastuzumab -qyyp (TRAZIMERA) 480 mg in NaCl 0.9% (NS) 250 mL infusion 07-02 17:00: 00 07-03 04:59 :00 No [id number] 6mg/kg 480 mg (rounded from 477 mg = 6 mg/kg ?79.5 kg Treatment plan Recorded weight), IV Infusion, ONCE, Administer over 60 Minutes, On Thu07/02/23 at 1200, For 1 dose
Sh ould be diluted in 0.9% Sodium Chloride only; DO NOT USE D5W. Diluted solutions may be stored in refrigerat or for up to 24 hours prior to use.
[facility] trastuzumab -qyyp (TRAZIMERA) 480 mg in NaCl 0.9% (NS) 250 mL infusion 07-02 17:00: 00 07-02 18:00 :00 No [id number] 6mg/kg 480 mg (rounded from 477 mg = 6 mg/kg ?79.5 kg Treatment plan Recorded weight), IV Infusion, ONCE, Administer over 60 Minutes, On Khal[place] 07/02/23 at 1200, For 1 dose
Sh ould be diluted in 0.9% Sodium Chloride only; DO NOT USE D5W. Diluted solutions may be stored in refrigerat or for up to 24 hours prior to use.
[facility] acetaminoph en (TYLENOL) tablet 650 mg 07-02 16:30: 00 07-02 16:28 :00 No [id number] 650mg 650 mg, Oral, ONCE, 1 dose, On Khal[place] 07/02/23 at 1130, Routine [facility] diphenhydrA MINE (BENADRYL) injection 25 mg 07-02 16:30: 00 07-02 16:31 :00 No [id number] 25mg 25 mg, Slow IV Push, ONCE, 1 dose, On Khal[place] 07/02/23 at 1130, Routine [facility] acetaminoph en (TYLENOL) tablet 650 mg 07-02 16:30: 00 07-02 16:28 :00 No [id number] 650mg 650 mg, Oral, ONCE, 1 dose, On Khal[place] 07/02/23 at 1130, Routine [facility] diphenhydrA MINE (BENADRYL) injection 25 mg 07-02 16:30: 00 07-02 16:31 :00 No [id number] 25mg 25 mg, Slow IV Push, ONCE, 1 dose, On [place] 07/02/23 at 1130, Routine [facility] heparin lock flush (HEPARIN LOCKFLUSH(P ORCINE)(PF) ) 100 unit/mL injection 500 Units 07-02 16:27: 39 07-03 16:26 :39 No [id number] 500U 500 Units, IV Push, PRN, Starting on Khal[place] 07/02/23 at 1127, Until Thu07/03/23 at 1126, Routine [facility] heparin lock flush (HEPARIN LOCKFLUSH(P ORCINE)(PF) ) 100 unit/mL injection 500 Units 07-02 16:27: 39 07-03 16:26 :39 No [id number] 500U 500 Units, IV Push, PRN, Starting on Khal[place] 07/02/23 at 1127, Until Thu07/03/23 at 1126, Routine [facility] cyclobenzap rine 5 mg tablet 2022-0 07-01 00:00: 00 Yes [id number] 5mg Take 1 tablet by mouth 2 (two) times daily as needed for Muscle Spasms. [facility] cyclobenzap rine 5 mg tablet 2022-0 07-01 00:00: 00 Yes [id number] 5mg Take 1 tablet by mouth 2 (two) times daily as needed for Muscle Spasms. [facility] cyclobenzap rine 5 mg tablet 2022-0 07-01 00:00: 00 Yes [id number] 5mg Take 1 tablet by mouth 2 (two) times daily as needed for Muscle Spasms. [facility] cyclobenzap rine 5 mg tablet 2022-0 07-01 00:00: 00 Yes [id number] 5mg Take 1 tablet by mouth 2 (two) times daily as needed for Muscle Spasms. [facility] cyclobenzap rine 5 mg tablet 2022-0 07-01 00:00: 00 Yes [id number] 5mg Take 1 tablet by mouth 2 (two) times daily as needed for Muscle Spasms. [facility] cyclobenzap rine 5 mg tablet 2022-0 07-01 00:00: 00 Yes [id number] 5mg Take 1 tablet by mouth 2 (two) times daily as needed for Muscle Spasms. [facility] cyclobenzap rine 5 mg tablet 2022-0 07-01 00:00: 00 Yes [id number] 5mg Take 1 tablet by mouth 2 (two) times daily as needed for Muscle Spasms. [facility] cyclobenzap rine 5 mg tablet 2023-0 8-02 00:00: 00 Yes [id number] 5mg Take 1 tablet by mouth 2 (two) times daily as needed for Muscle Spasms. [facility] cyclobenzap rine 5 mg tablet 3-0 8-02 00:00: 00 Yes [id number] 5mg Take 1 tablet by mouth 2 (two) times daily as needed for Muscle Spasms. [facility] cyclobenzap rine 5 mg tablet 3-0 8- 00:00: 00 Yes [id number] 5mg Take 1 tablet by mouth 2 (two) times daily as needed for Muscle Spasms. [facility] cyclobenzap rine 5 mg tablet 3-0 8- 00:00: 00 Yes [id number] 5mg Take 1 tablet by mouth 2 (two) times daily as needed for Muscle Spasms. [facility] cyclobenzap rine 5 mg tablet 3-0 8- 00:00: 00 Yes [id number] 5mg Take 1 tablet by mouth 2 (two) times daily as needed for Muscle Spasms. [facility] cyclobenzap rine 5 mg tablet 3-0 8- 00:00: 00 Yes [id number] 5mg Take 1 tablet by mouth 2 (two) times daily as needed for Muscle Spasms. [facility] cyclobenzap rine 5 mg tablet 3-0 8- 00:00: 00 Yes [id number] 5mg Take 1 tablet by mouth 2 (two) times daily as needed for Muscle Spasms. [facility] cyclobenzap rine 5 mg tablet 3-0 8-02 00:00: 00 Yes [id number] 5mg Take 1 tablet by mouth 2 (two) times daily as needed for Muscle Spasms. [facility] cyclobenzap rine 5 mg tablet 3-0 8-02 00:00: 00 Yes [id number] 5mg Take 1 tablet by mouth 2 (two) times daily as needed for Muscle Spasms. [facility] cyclobenzap rine 5 mg tablet 2023-0 8-02 00:00: 00 Yes [id number] 5mg Take 1 tablet by mouth 2 (two) times daily as needed for Muscle Spasms. [facility] cyclobenzap rine 5 mg tablet 3-0 8-02 00:00: 00 Yes [id number] 5mg Take 1 tablet by mouth 2 (two) times daily as needed for Muscle Spasms. [facility] cyclobenzap rine 5 mg tablet 3-0 8-02 00:00: 00 Yes [id number] 5mg Take 1 tablet by mouth 2 (two) times daily as needed for Muscle Spasms. [facility] cyclobenzap rine 5 mg tablet 3-0 8-02 00:00: 00 Yes [id number] 5mg Take 1 tablet by mouth 2 (two) times daily as needed for Muscle Spasms. [facility] cyclobenzap rine 5 mg tablet 3-0 8-02 00:00: 00 Yes [id number] 5mg Take 1 tablet by mouth 2 (two) times daily as needed for Muscle Spasms. [facility] cyclobenzap rine 5 mg tablet 3-0 8-02 00:00: 00 Yes [id number] 5mg Take 1 tablet by mouth 2 (two) times daily as needed for Muscle Spasms. [facility] cyclobenzap rine 5 mg tablet 3-0 8-02 00:00: 00 Yes [id number] 5mg Take 1 tablet by mouth 2 (two) times daily as needed for Muscle Spasms. [facility] cyclobenzap rine 5 mg tablet 3-0 8-02 00:00: 00 Yes [id number] 5mg Take 1 tablet by mouth 2 (two) times daily as needed for Muscle Spasms. [facility] cyclobenzap rine 5 mg tablet 3-0 8-02 00:00: 00 Yes [id number] 5mg Take 1 tablet by mouth 2 (two) times daily as needed for Muscle Spasms. [facility] cyclobenzap rine 5 mg tablet 3-0 8-02 00:00: 00 Yes [id number] 5mg Take 1 tablet by mouth 2 (two) times daily as needed for Muscle Spasms. [facility] cyclobenzap rine 5 mg tablet 2023-0 8-02 00:00: 00 Yes [id number] 5mg Take 1 tablet by mouth 2 (two) times daily as needed for Muscle Spasms. [facility] cyclobenzap rine 5 mg tablet 3-0 8-02 00:00: 00 Yes [id number] 5mg Take 1 tablet by mouth 2 (two) times daily as needed for Muscle Spasms. [facility] cyclobenzap rine 5 mg tablet 2023-0 8-02 00:00: 00 Yes [id number] 5mg Take 1 tablet by mouth 2 (two) times daily as needed for Muscle Spasms. [facility] cyclobenzap rine 5 mg tablet 3-0 8-02 00:00: 00 Yes [id number] 5mg Take 1 tablet by mouth 2 (two) times daily as needed for Muscle Spasms. [facility] cyclobenzap rine 5 mg tablet 3-0 8-02 00:00: 00 Yes [id number] 5mg Take 1 tablet by mouth 2 (two) times daily as needed for Muscle Spasms. [facility] cyclobenzap rine 5 mg tablet 3-0 8-02 00:00: 00 Yes [id number] 5mg Take 1 tablet by mouth 2 (two) times daily as needed for Muscle Spasms. [facility] cyclobenzap rine 5 mg tablet 3-0 8-02 00:00: 00 Yes [id number] 5mg Take 1 tablet by mouth 2 (two) times daily as needed for Muscle Spasms. [facility] cyclobenzap rine 5 mg tablet 3-0 8-02 00:00: 00 Yes [id number] 5mg Take 1 tablet by mouth 2 (two) times daily as needed for Muscle Spasms. [facility] cyclobenzap rine 5 mg tablet 3-0 8-02 00:00: 00 Yes [id number] 5mg Take 1 tablet by mouth 2 (two) times daily as needed for Muscle Spasms. [facility] cyclobenzap rine 5 mg tablet 3-0 8-02 00:00: 00 Yes [id number] 5mg Take 1 tablet by mouth 2 (two) times daily as needed for Muscle Spasms. [facility] cyclobenzap rine 5 mg tablet 3-0 8-02 00:00: 00 Yes [id number] 5mg Take 1 tablet by mouth 2 (two) times daily as needed for Muscle Spasms. [facility] cyclobenzap rine 5 mg tablet 3-0 - 00:00: 00 Yes [id number] 5mg Take 1 tablet by mouth 2 (two) times daily as needed for Muscle Spasms. [facility] cyclobenzap rine 5 mg tablet 3-0 8- 00:00: 00 Yes [id number] 5mg Take 1 tablet by mouth 2 (two) times daily as needed for Muscle Spasms. [facility] cyclobenzap rine 5 mg tablet 3-0 8- 00:00: 00 Yes [id number] 5mg Take 1 tablet by mouth 2 (two) times daily as needed for Muscle Spasms. [facility] cyclobenzap rine 5 mg tablet 3-0 - 00:00: 00 Yes [id number] 5mg Take 1 tablet by mouth 2 (two) times daily as needed for Muscle Spasms. [facility] cyclobenzap rine 5 mg tablet 3-0 - 00:00: 00 Yes [id number] 5mg Take 1 tablet by mouth 2 (two) times daily as needed for Muscle Spasms. [facility] cyclobenzap rine 5 mg tablet 3-0 - 00:00: 00 Yes [id number] 5mg Take 1 tablet by mouth 2 (two) times daily as needed for Muscle Spasms. [facility] cyclobenzap rine 5 mg tablet 3-0 - 00:00: 00 Yes [id number] 5mg Take 1 tablet by mouth 2 (two) times daily as needed for Muscle Spasms. [facility] cyclobenzap rine 5 mg tablet 3-0 8- 00:00: 00 Yes [id number] 5mg Take 1 tablet by mouth 2 (two) times daily as needed for Muscle Spasms. [facility] cyclobenzap rine 5 mg tablet 3-0 8- 00:00: 00 Yes [id number] 5mg Take 1 tablet by mouth 2 (two) times daily as needed for Muscle Spasms. [facility] cyclobenzap rine 5 mg tablet 3-0 8-02 00:00: 00 Yes [id number] 5mg Take 1 tablet by mouth 2 (two) times daily as needed for Muscle Spasms. [facility] cyclobenzap rine 5 mg tablet 3-0 8- 00:00: 00 Yes [id number] 5mg Take 1 tablet by mouth 2 (two) times daily as needed for Muscle Spasms. [facility] cyclobenzap rine 5 mg tablet 2023-0 8- 00:00: 00 Yes [id number] 5mg Take 1 tablet by mouth 2 (two) times daily as needed for Muscle Spasms. [facility] cyclobenzap rine 5 mg tablet 3-0 8- 00:00: 00 Yes [id number] 5mg Take 1 tablet by mouth 2 (two) times daily as needed for Muscle Spasms. [facility] cyclobenzap rine 5 mg tablet 3-0 8- 00:00: 00 Yes [id number] 5mg Take 1 tablet by mouth 2 (two) times daily as needed for Muscle Spasms. [facility] cyclobenzap rine 5 mg tablet 3-0 8- 00:00: 00 Yes [id number] 5mg Take 1 tablet by mouth 2 (two) times daily as needed for Muscle Spasms. [facility] cyclobenzap rine 5 mg tablet 3-0 8- 00:00: 00 Yes [id number] 5mg Take 1 tablet by mouth 2 (two) times daily as needed for Muscle Spasms. [facility] cyclobenzap rine 5 mg tablet 3-0 8- 00:00: 00 Yes [id number] 5mg Take 1 tablet by mouth 2 (two) times daily as needed for Muscle Spasms. [facility] cyclobenzap rine 5 mg tablet 3-0 8-02 00:00: 00 Yes [id number] 5mg Take 1 tablet by mouth 2 (two) times daily as needed for Muscle Spasms. [facility] cyclobenzap rine 5 mg tablet 2023-0 8- 00:00: 00 Yes [id number] 5mg Take 1 tablet by mouth 2 (two) times daily as needed for Muscle Spasms. [facility] cyclobenzap rine 5 mg tablet 3-0 8- 00:00: 00 Yes [id number] 5mg Take 1 tablet by mouth 2 (two) times daily as needed for Muscle Spasms. [facility] cyclobenzap rine 5 mg tablet 3-0 8-02 00:00: 00 Yes [id number] 5mg Take 1 tablet by mouth 2 (two) times daily as needed for Muscle Spasms. [facility] cyclobenzap rine 5 mg tablet 3-0 8- 00:00: 00 Yes [id number] 5mg Take 1 tablet by mouth 2 (two) times daily as needed for Muscle Spasms. [facility] cyclobenzap rine 5 mg tablet 3-0 8- 00:00: 00 Yes [id number] 5mg Take 1 tablet by mouth 2 (two) times daily as needed for Muscle Spasms. [facility] cyclobenzap rine 5 mg tablet 3-0 8- 00:00: 00 Yes [id number] 5mg Take 1 tablet by mouth 2 (two) times daily as needed for Muscle Spasms. [facility] cyclobenzap rine 5 mg tablet 3-0 - 00:00: 00 Yes [id number] 5mg Take 1 tablet by mouth 2 (two) times daily as needed for Muscle Spasms. [facility] cyclobenzap rine 5 mg tablet 3-0 8- 00:00: 00 Yes [id number] 5mg Take 1 tablet by mouth 2 (two) times daily as needed for Muscle Spasms. [facility] cyclobenzap rine 5 mg tablet 3-0 8- 00:00: 00 Yes [id number] 5mg Take 1 tablet by mouth 2 (two) times daily as needed for Muscle Spasms. [facility] cyclobenzap rine 5 mg tablet 3-0 8-02 00:00: 00 Yes [id number] 5mg Take 1 tablet by mouth 2 (two) times daily as needed for Muscle Spasms. [facility] cyclobenzap rine 5 mg tablet 3-0 8-02 00:00: 00 Yes [id number] 5mg Take 1 tablet by mouth 2 (two) times daily as needed for Muscle Spasms. [facility] cyclobenzap rine 5 mg tablet 2022-0 8- 00:00: 00 Yes [id number] 5mg Take 1 tablet by mouth 2 (two) times daily as needed for Muscle Spasms. [facility] cyclobenzap rine 5 mg tablet 2022-0 8- 00:00: 00 Yes [id number] 5mg Take 1 tablet by mouth 2 (two) times daily as needed for Muscle Spasms. [facility] cyclobenzap rine 5 mg tablet 2022-0 8- 00:00: 00 Yes [id number] 5mg Take 1 tablet by mouth 2 (two) times daily as needed for Muscle Spasms. [facility] DULoxetine 60 mg capsule 2022-0 06-24 00:00: 00 Yes [id number] TAKE 1 CAPSULE BY MOUTH IN THE MORNING AND IN THE EVENING [facility] DULoxetine 60 mg capsule 3-0 - 00:00: 00 Yes [id number] TAKE 1 CAPSULE BY MOUTH IN THE MORNING AND IN THE EVENING [facility] DULoxetine 60 mg capsule 3-0 - 00:00: 00 Yes [id number] TAKE 1 CAPSULE BY MOUTH IN THE MORNING AND IN THE EVENING [facility] DULoxetine 60 mg capsule 3-0 - 00:00: 00 Yes [id number] TAKE 1 CAPSULE BY MOUTH IN THE MORNING AND IN THE EVENING [facility] DULoxetine 60 mg capsule 3-0 - 00:00: 00 Yes [id number] TAKE 1 CAPSULE BY MOUTH IN THE MORNING AND IN THE EVENING [facility] DULoxetine 60 mg capsule 3-0 - 00:00: 00 Yes [id number] TAKE 1 CAPSULE BY MOUTH IN THE MORNING AND IN THE EVENING [facility] DULoxetine 60 mg capsule 3-0 - 00:00: 00 07-06 00:00 :00 No [id number] TAKE 1 CAPSULE BY MOUTH IN THE MORNING AND IN THE EVENING [facility] DULoxetine 60 mg capsule 3-0 - 00:00: 00 07-06 00:00 :00 No [id number] TAKE 1 CAPSULE BY MOUTH IN THE MORNING AND IN THE EVENING [facility] pregabalin 75 mg capsule 3-0 06-01 00:00: 00 Yes [id number] 150mg Take 2 capsules by mouth in the morning and 2 capsules at noon and 2 capsules in the evening. [facility] DULoxetine 60 mg capsule 3-0 - 00:00: 00 Yes [id number] 60mg Take 1 capsule by mouth in the morning and 1 capsule in the evening. [facility] pregabalin 75 mg capsule 3-0 - 00:00: 00 Yes [id number] 150mg Take 2 capsules by mouth in the morning and 2 capsules at noon and 2 capsules in the evening. [facility] DULoxetine 60 mg capsule 3-0 06-01 00:00: 00 Yes [id number] 60mg Take 1 capsule by mouth in the morning and 1 capsule in the evening. [facility] pregabalin 75 mg capsule 3-0 06-01 00:00: 00 Yes [id number] 150mg Take 2 capsules by mouth in the morning and 2 capsules at noon and 2 capsules in the evening. [facility] DULoxetine 60 mg capsule 3-0 06-01 00:00: 00 Yes [id number] 60mg Take 1 capsule by mouth in the morning and 1 capsule in the evening. [facility] pregabalin 75 mg capsule 3-0 06-01 00:00: 00 Yes [id number] 150mg Take 2 capsules by mouth in the morning and 2 capsules at noon and 2 capsules in the evening. [facility] DULoxetine 60 mg capsule 3-0 06-01 00:00: 00 Yes [id number] 60mg Take 1 capsule by mouth in the morning and 1 capsule in the evening. [facility] pregabalin 75 mg capsule 3-0 - 00:00: 00 Yes [id number] 150mg Take 2 capsules by mouth in the morning and 2 capsules at noon and 2 capsules in the evening. [facility] DULoxetine 60 mg capsule 3-0 - 00:00: 00 Yes [id number] 60mg Take 1 capsule by mouth in the morning and 1 capsule in the evening. [facility] pregabalin 75 mg capsule 2022-0 06-01 00:00: 00 Yes [id number] 150mg Take 2 capsules by mouth in the morning and 2 capsules at noon and 2 capsules in the evening. [facility] DULoxetine 60 mg capsule 0 06-01 00:00: 00 Yes [id number] 60mg Take 1 capsule by mouth in the morning and 1 capsule in the evening. [facility] pregabalin 75 mg capsule 0 06-01 00:00: 00 Yes [id number] 150mg Take 2 capsules by mouth in the morning and 2 capsules at noon and 2 capsules in the evening. [facility] pregabalin 75 mg capsule 2022-0 06-01 00:00: 00 Yes [id number] 150mg Take 2 capsules by mouth in the morning and 2 capsules at noon and 2 capsules in the evening. [facility] pregabalin 75 mg capsule 2022-0 06-01 00:00: 00 Yes [id number] 150mg Take 2 capsules by mouth in the morning and 2 capsules at noon and 2 capsules in the evening. [facility] pregabalin 75 mg capsule 0 06-01 00:00: 00 Yes [id number] 150mg Take 2 capsules by mouth in the morning and 2 capsules at noon and 2 capsules in the evening. [facility] pregabalin 75 mg capsule 2022-0 06-01 00:00: 00 Yes [id number] 150mg Take 2 capsules by mouth in the morning and 2 capsules at noon and 2 capsules in the evening. [facility] pregabalin 75 mg capsule 2022-0 06-01 00:00: 00 Yes [id number] 150mg Take 2 capsules by mouth in the morning and 2 capsules at noon and 2 capsules in the evening. [facility] pregabalin 75 mg capsule 2022-0 06-01 00:00: 00 07-06 00:00 :00 No [id number] 150mg Take 2 capsules by mouth in the morning and 2 capsules at noon and 2 capsules in the evening. [facility] pregabalin 75 mg capsule 2022-0 06-01 00:00: 00 07-06 00:00 :00 No [id number] 150mg Take 2 capsules by mouth in the morning and 2 capsules at noon and 2 capsules in the evening. [facility] DULoxetine 60 mg capsule 06-01 00:00: 00 06-24 00:00 :00 No [id number] 60mg Take 1 capsule by mouth in the morning and 1 capsule in the evening. [facility] trastuzumab -qyyp (TRAZIMERA) 480 mg in NaCl 0.9% (NS) 250 mL infusion 05-21 17:15: 00 05-21 18:47 :00 No [id number] 6mg/kg 480 mg (rounded from 477 mg = 6 mg/kg ?79.5 kg Treatment plan Recorded weight), IV Infusion, ONCE, Administer over 60 Minutes, On Khalida 05/21/23 at 1215, For 1 dose
Sh ould be diluted in 0.9% Sodium Chloride only; DO NOT USE D5W. Diluted solutions may be stored in refrigerat or for up to 24 hours prior to use.
[facility] acetaminoph en (TYLENOL) tablet 650 mg 05-21 16:45: 00 05-21 17:03 :00 No [id number] 650mg 650 mg, Oral, ONCE, 1 dose, On Khalida 05/21/23 at 1145, Routine [facility] diphenhydrA MINE (BENADRYL) injection 25 mg 05-21 16:45: 00 05-21 17:05 :00 No [id number] 25mg 25 mg, Slow IV Push, ONCE, 1 dose, On Khalida 05/21/23 at 1145, Routine [facility] heparin lock flush (HEPARIN LOCKFLUSH(P ORCINE)(PF) ) 100 unit/mL injection 500 Units 05-21 16:36: 44 05-22 16:35 :44 No [id number] 500U 500 Units, IV Push, PRN, Starting on Khalida 05/21/23 at 1136, Until Thu05/22/23 at 1135, Routine [facility] pregabalin (LYRICA) 25 mg capsule 3-0 05-21 00:00: 00 Yes [id number] 75mg Take 3 capsules by mouth in the morning and 3 capsules in the evening. [facility] DULoxetine 60 mg capsule 3-0 - 00:00: 00 Yes [id number] 60mg Take 1 capsule by mouth in the morning. [facility] pregabalin (LYRICA) 25 mg capsule 3-0 05-21 00:00: 00 Yes [id number] 75mg Take 3 capsules by mouth in the morning and 3 capsules in the evening. [facility] DULoxetine 60 mg capsule 3-0 05-21 00:00: 00 Yes [id number] 60mg Take 1 capsule by mouth in the morning. [facility] pregabalin (LYRICA) 25 mg capsule 3-0 05-21 00:00: 00 Yes [id number] 75mg Take 3 capsules by mouth in the morning and 3 capsules in the evening. [facility] DULoxetine 60 mg capsule 3-0 05-21 00:00: 00 Yes [id number] 60mg Take 1 capsule by mouth in the morning. [facility] pregabalin (LYRICA) 25 mg capsule 3-0 05-21 00:00: 00 Yes [id number] 75mg Take 3 capsules by mouth in the morning and 3 capsules in the evening. [facility] DULoxetine 60 mg capsule 3-0 05-21 00:00: 00 Yes [id number] 60mg Take 1 capsule by mouth in the morning. [facility] pregabalin (LYRICA) 25 mg capsule 3-0 05-21 00:00: 00 06-01 00:00 :00 No [id number] 75mg Take 3 capsules by mouth in the morning and 3 capsules in the evening. [facility] DULoxetine 60 mg capsule 3-0 05-21 00:00: 00 06-01 00:00 :00 No [id number] 60mg Take 1 capsule by mouth in the morning. [facility] pregabalin (LYRICA) 25 mg capsule 05-21 00:00: 00 06-01 00:00 :00 No [id number] 75mg Take 3 capsules by mouth in the morning and 3 capsules in the evening. [facility] DULoxetine 60 mg capsule 05-21 00:00: 00 06-01 00:00 :00 No [id number] 60mg Take 1 capsule by mouth in the morning. [facility] trastuzumab -qyyp (TRAZIMERA) 480 mg in NaCl 0.9% (NS) 250 mL infusion 04-30 18:15: 00 04-30 18:55 :00 No [id number] 6mg/kg 480 mg (rounded from 477 mg = 6 mg/kg ?79.5 kg Treatment plan Recorded weight), IV Infusion, ONCE, Administer over 60 Minutes, On Khalida 04/30/23 at 1315, For 1 dose
Sh ould be diluted in 0.9% Sodium Chloride only; DO NOT USE D5W. Diluted solutions may be stored in refrigerat or for up to 24 hours prior to use.
[facility] acetaminoph en (TYLENOL) tablet 650 mg 04-30 17:45: 00 04-30 17:46 :00 No [id number] 650mg 650 mg, Oral, ONCE, 1 dose, On Khal[place] 04/30/23 at 1245, Routine [facility] diphenhydrA MINE (BENADRYL) injection 25 mg 04-30 17:45: 00 04-30 17:46 :00 No [id number] 25mg 25 mg, Slow IV Push, ONCE, 1 dose, On Khal[place] 04/30/23 at 1245, Routine [facility] heparin lock flush (HEPARIN LOCKFLUSH(P ORCINE)(PF) ) 100 unit/mL injection 500 Units 04-30 17:38: 06 05-01 17:37 :06 No [id number] 500U 500 Units, IV Push, PRN, Starting on Thu04/30/23 at 1238, Until Thu05/01/23 at 1237, Routine [facility] pregabalin (LYRICA) 25 mg capsule 04-30 00:00: 00 Yes [id number] 75mg Take 3 capsules by mouth in the morning and 3 capsules in the evening. [facility] pregabalin (LYRICA) 25 mg capsule 04-30 00:00: 00 Yes [id number] 75mg Take 3 capsules by mouth in the morning and 3 capsules in the evening. [facility] pregabalin (LYRICA) 25 mg capsule 04-30 00:00: 00 Yes [id number] 75mg Take 3 capsules by mouth in the morning and 3 capsules in the evening. [facility] pregabalin (LYRICA) 25 mg capsule 04-30 00:00: 00 Yes [id number] 75mg Take 3 capsules by mouth in the morning and 3 capsules in the evening. [facility] pregabalin (LYRICA) 25 mg capsule 04-30 00:00: 00 05-21 00:00 :00 No [id number] 75mg Take 3 capsules by mouth in the morning and 3 capsules in the evening. [facility] pregabalin (LYRICA) 25 mg capsule 04-30 00:00: 00 05-21 00:00 :00 No [id number] 75mg Take 3 capsules by mouth in the morning and 3 capsules in the evening. [facility] trastuzumab -qyyp (TRAZIMERA) 480 mg in NaCl 0.9% (NS) 250 mL infusion 04-09 17:00: 00 04-09 18:33 :00 No [id number] 6mg/kg 480 mg (rounded from 477 mg = 6 mg/kg ?79.5 kg Treatment plan Recorded weight), IV Infusion, ONCE, Administer over 60 Minutes, On Khal[place] 04/09/23 at 1200, For 1 dose
Sh ould be diluted in 0.9% Sodium Chloride only; DO NOT USE D5W. Diluted solutions may be stored in refrigerat or for up to 24 hours prior to use.
[facility] acetaminoph en (TYLENOL) tablet 650 mg 04-09 16:30: 00 04-09 16:47 :00 No [id number] 650mg 650 mg, Oral, ONCE, 1 dose, On Thu04/09/23 at 1130, Routine [facility] diphenhydrA MINE (BENADRYL) injection 25 mg 04-09 16:30: 00 04-09 16:48 :00 No [id number] 25mg 25 mg, Slow IV Push, ONCE, 1 dose, On Thu04/09/23 at 1130, Routine [facility] heparin lock flush (HEPARIN LOCKFLUSH(P ORCINE)(PF) ) 100 unit/mL injection 500 Units 04-09 16:20: 10 04-10 16:19 :10 No [id number] 500U 500 Units, IV Push, PRN, Starting on Thu04/09/23 at 1120, Until Thu04/10/23 at 1119, Routine [facility] trastuzumab -qyyp (TRAZIMERA) 480 mg in NaCl 0.9% (NS) 250 mL infusion 03-19 17:15: 00 03-19 18:30 :00 No [id number] 6mg/kg 480 mg (rounded from 477 mg = 6 mg/kg ?79.5 kg Treatment plan Recorded weight), IV Infusion, ONCE, Administer over 60 Minutes, On Thu03/19/23 at 1215, For 1 dose
Sh ould be diluted in 0.9% Sodium Chloride only; DO NOT USE D5W. Diluted solutions may be stored in refrigerat or for up to 24 hours prior to use.
[facility] acetaminoph en (TYLENOL) tablet 650 mg 03-19 16:45: 00 03-19 16:30 :00 No [id number] 650mg 650 mg, Oral, ONCE, 1 dose, On Thu03/19/23 at 1145, Routine [facility] diphenhydrA MINE (BENADRYL) injection 25 mg 03-19 16:45: 00 03-19 16:30 :00 No [id number] 25mg 25 mg, Slow IV Push, ONCE, 1 dose, On Thu03/19/23 at 1145, Routine [facility] heparin lock flush (HEPARIN LOCKFLUSH(P ORCINE)(PF) ) 100 unit/mL injection 500 Units 03-19 16:30: 50 03-20 16:29 :50 No [id number] 500U 500 Units, IV Push, PRN, Starting on Thu03/19/23 at 1130, Until Thu03/20/23 at 1129, Routine [facility] letrozole 2.5 mg tablet 03-19 00:00: 00 Yes [id number] 2.5mg Take 1 tablet by mouth daily [facility] pregabalin (LYRICA) 25 mg capsule 2022-0 03-19 00:00: 00 Yes [id number] 50mg Take 2 capsules by mouth in the morning and 2 capsules in the evening. [facility] letrozole 2.5 mg tablet 2022-03-19 00:00: 00 Yes [id number] 2.5mg Take 1 tablet by mouth daily [facility] pregabalin (LYRICA) 25 mg capsule 2022-0 03-19 00:00: 00 Yes [id number] 50mg Take 2 capsules by mouth in the morning and 2 capsules in the evening. [facility] letrozole 2.5 mg tablet 2022-0 03-19 00:00: 00 Yes [id number] 2.5mg Take 1 tablet by mouth daily [facility] pregabalin (LYRICA) 25 mg capsule 2022-0 03-19 00:00: 00 Yes [id number] 50mg Take 2 capsules by mouth in the morning and 2 capsules in the evening. [facility] letrozole 2.5 mg tablet 2022-0 03-19 00:00: 00 Yes [id number] 2.5mg Take 1 tablet by mouth daily [facility] pregabalin (LYRICA) 25 mg capsule 2022-0 03-19 00:00: 00 Yes [id number] 50mg Take 2 capsules by mouth in the morning and 2 capsules in the evening. [facility] letrozole 2.5 mg tablet 3-0 4-20 00:00: 00 Yes [id number] 2.5mg Take 1 tablet by mouth daily [facility] pregabalin (LYRICA) 25 mg capsule 3-0 4-20 00:00: 00 Yes [id number] 50mg Take 2 capsules by mouth in the morning and 2 capsules in the evening. [facility] letrozole 2.5 mg tablet 3-0 4-20 00:00: 00 Yes [id number] 2.5mg Take 1 tablet by mouth daily [facility] pregabalin (LYRICA) 25 mg capsule 3-0 4-20 00:00: 00 Yes [id number] 50mg Take 2 capsules by mouth in the morning and 2 capsules in the evening. [facility] letrozole 2.5 mg tablet 3-0 4-20 00:00: 00 Yes [id number] 2.5mg Take 1 tablet by mouth daily [facility] pregabalin (LYRICA) 25 mg capsule 3-0 4-20 00:00: 00 Yes [id number] 50mg Take 2 capsules by mouth in the morning and 2 capsules in the evening. [facility] letrozole 2.5 mg tablet 3-0 4-20 00:00: 00 Yes [id number] 2.5mg Take 1 tablet by mouth daily [facility] pregabalin (LYRICA) 25 mg capsule 3-0 4-20 00:00: 00 Yes [id number] 50mg Take 2 capsules by mouth in the morning and 2 capsules in the evening. [facility] letrozole 2.5 mg tablet 3-0 4-20 00:00: 00 Yes [id number] 2.5mg Take 1 tablet by mouth daily [facility] pregabalin (LYRICA) 25 mg capsule 3-0 4-20 00:00: 00 Yes [id number] 50mg Take 2 capsules by mouth in the morning and 2 capsules in the evening. [facility] letrozole 2.5 mg tablet 3-0 4-20 00:00: 00 Yes [id number] 2.5mg Take 1 tablet by mouth daily [facility] pregabalin (LYRICA) 25 mg capsule 2023-0 4-20 00:00: 00 Yes [id number] 50mg Take 2 capsules by mouth in the morning and 2 capsules in the evening. [facility] letrozole 2.5 mg tablet 3-0 4-20 00:00: 00 Yes [id number] 2.5mg Take 1 tablet by mouth daily [facility] pregabalin (LYRICA) 25 mg capsule 3-0 4-20 00:00: 00 Yes [id number] 50mg Take 2 capsules by mouth in the morning and 2 capsules in the evening. [facility] letrozole 2.5 mg tablet 3-0 4-20 00:00: 00 Yes [id number] 2.5mg Take 1 tablet by mouth daily [facility] pregabalin (LYRICA) 25 mg capsule 3-0 4-20 00:00: 00 Yes [id number] 50mg Take 2 capsules by mouth in the morning and 2 capsules in the evening. [facility] letrozole 2.5 mg tablet 3-0 4-20 00:00: 00 Yes [id number] 2.5mg Take 1 tablet by mouth daily [facility] pregabalin (LYRICA) 25 mg capsule 3-0 4-20 00:00: 00 Yes [id number] 50mg Take 2 capsules by mouth in the morning and 2 capsules in the evening. [facility] letrozole 2.5 mg tablet 2023-0 4-20 00:00: 00 Yes [id number] 2.5mg Take 1 tablet by mouth daily [facility] pregabalin (LYRICA) 25 mg capsule 3-0 4-20 00:00: 00 Yes [id number] 50mg Take 2 capsules by mouth in the morning and 2 capsules in the evening. [facility] letrozole 2.5 mg tablet 2023-0 4-20 00:00: 00 Yes [id number] 2.5mg Take 1 tablet by mouth daily [facility] pregabalin (LYRICA) 25 mg capsule 2023-0 4-20 00:00: 00 Yes [id number] 50mg Take 2 capsules by mouth in the morning and 2 capsules in the evening. [facility] letrozole 2.5 mg tablet 2022-0 -20 00:00: 00 Yes [id number] 2.5mg Take 1 tablet by mouth daily [facility] pregabalin (LYRICA) 25 mg capsule 2022-0 -20 00:00: 00 Yes [id number] 50mg Take 2 capsules by mouth in the morning and 2 capsules in the evening. [facility] letrozole 2.5 mg tablet 2022-0 -20 00:00: 00 Yes [id number] 2.5mg Take 1 tablet by mouth daily [facility] letrozole 2.5 mg tablet 2022-0 20 00:00: 00 Yes [id number] 2.5mg Take 1 tablet by mouth daily [facility] letrozole 2.5 mg tablet 3-0 20 00:00: 00 Yes [id number] 2.5mg Take 1 tablet by mouth daily [facility] letrozole 2.5 mg tablet 2022-0 20 00:00: 00 Yes [id number] 2.5mg Take 1 tablet by mouth daily [facility] letrozole 2.5 mg tablet 3-0 20 00:00: 00 Yes [id number] 2.5mg Take 1 tablet by mouth daily [facility] letrozole 2.5 mg tablet 3-0 20 00:00: 00 Yes [id number] 2.5mg Take 1 tablet by mouth daily [facility] letrozole 2.5 mg tablet 3-0 20 00:00: 00 Yes [id number] 2.5mg Take 1 tablet by mouth daily [facility] letrozole 2.5 mg tablet 3-0 -20 00:00: 00 Yes [id number] 2.5mg Take 1 tablet by mouth daily [facility] letrozole 2.5 mg tablet 3-0 -20 00:00: 00 Yes [id number] 2.5mg Take 1 tablet by mouth daily [facility] letrozole 2.5 mg tablet 3-0 -20 00:00: 00 Yes [id number] 2.5mg Take 1 tablet by mouth daily [facility] letrozole 2.5 mg tablet 3-0 4-20 00:00: 00 Yes [id number] 2.5mg Take 1 tablet by mouth daily [facility] letrozole 2.5 mg tablet 3-0 4-20 00:00: 00 Yes [id number] 2.5mg Take 1 tablet by mouth daily [facility] letrozole 2.5 mg tablet 3-0 4-20 00:00: 00 Yes [id number] 2.5mg Take 1 tablet by mouth daily [facility] letrozole 2.5 mg tablet 3-0 4-20 00:00: 00 Yes [id number] 2.5mg Take 1 tablet by mouth daily [facility] letrozole 2.5 mg tablet 3-0 -20 00:00: 00 Yes [id number] 2.5mg Take 1 tablet by mouth daily [facility] letrozole 2.5 mg tablet 3-0 -20 00:00: 00 Yes [id number] 2.5mg Take 1 tablet by mouth daily [facility] letrozole 2.5 mg tablet 3-0 20 00:00: 00 Yes [id number] 2.5mg Take 1 tablet by mouth daily [facility] letrozole 2.5 mg tablet 3-0 20 00:00: 00 Yes [id number] 2.5mg Take 1 tablet by mouth daily [facility] letrozole 2.5 mg tablet 3-0 20 00:00: 00 Yes [id number] 2.5mg Take 1 tablet by mouth daily [facility] letrozole 2.5 mg tablet 3-0 4-20 00:00: 00 Yes [id number] 2.5mg Take 1 tablet by mouth daily [facility] letrozole 2.5 mg tablet 3-0 4-20 00:00: 00 Yes [id number] 2.5mg Take 1 tablet by mouth daily [facility] letrozole 2.5 mg tablet 3-0 4-20 00:00: 00 Yes [id number] 2.5mg Take 1 tablet by mouth daily [facility] letrozole 2.5 mg tablet 3-0 4-20 00:00: 00 Yes [id number] 2.5mg Take 1 tablet by mouth daily [facility] letrozole 2.5 mg tablet 3-0 20 00:00: 00 Yes [id number] 2.5mg Take 1 tablet by mouth daily [facility] letrozole 2.5 mg tablet 3-0 -20 00:00: 00 Yes [id number] 2.5mg Take 1 tablet by mouth daily [facility] letrozole 2.5 mg tablet 3-0 -20 00:00: 00 Yes [id number] 2.5mg Take 1 tablet by mouth daily [facility] letrozole 2.5 mg tablet 3-0 20 00:00: 00 Yes [id number] 2.5mg Take 1 tablet by mouth daily [facility] letrozole 2.5 mg tablet 3-0 20 00:00: 00 Yes [id number] 2.5mg Take 1 tablet by mouth daily [facility] letrozole 2.5 mg tablet 3-0 20 00:00: 00 Yes [id number] 2.5mg Take 1 tablet by mouth daily [facility] letrozole 2.5 mg tablet 3-0 20 00:00: 00 Yes [id number] 2.5mg Take 1 tablet by mouth daily [facility] letrozole 2.5 mg tablet 3-0 20 00:00: 00 Yes [id number] 2.5mg Take 1 tablet by mouth daily [facility] letrozole 2.5 mg tablet 3-0 20 00:00: 00 Yes [id number] 2.5mg Take 1 tablet by mouth daily [facility] letrozole 2.5 mg tablet 3-0 -20 00:00: 00 Yes [id number] 2.5mg Take 1 tablet by mouth daily [facility] letrozole 2.5 mg tablet 3-0 -20 00:00: 00 Yes [id number] 2.5mg Take 1 tablet by mouth daily [facility] letrozole 2.5 mg tablet 3-0 -20 00:00: 00 Yes [id number] 2.5mg Take 1 tablet by mouth daily [facility] letrozole 2.5 mg tablet 3-0 4-20 00:00: 00 Yes [id number] 2.5mg Take 1 tablet by mouth daily [facility] letrozole 2.5 mg tablet 3-0 4-20 00:00: 00 Yes [id number] 2.5mg Take 1 tablet by mouth daily [facility] letrozole 2.5 mg tablet 3-0 4-20 00:00: 00 Yes [id number] 2.5mg Take 1 tablet by mouth daily [facility] letrozole 2.5 mg tablet 3-0 4-20 00:00: 00 Yes [id number] 2.5mg Take 1 tablet by mouth daily [facility] letrozole 2.5 mg tablet 3-0 -20 00:00: 00 Yes [id number] 2.5mg Take 1 tablet by mouth daily [facility] letrozole 2.5 mg tablet 3-0 -20 00:00: 00 Yes [id number] 2.5mg Take 1 tablet by mouth daily [facility] letrozole 2.5 mg tablet 3-0 20 00:00: 00 Yes [id number] 2.5mg Take 1 tablet by mouth daily [facility] letrozole 2.5 mg tablet 3-0 20 00:00: 00 Yes [id number] 2.5mg Take 1 tablet by mouth daily [facility] letrozole 2.5 mg tablet 3-0 20 00:00: 00 Yes [id number] 2.5mg Take 1 tablet by mouth daily [facility] letrozole 2.5 mg tablet 3-0 4-20 00:00: 00 Yes [id number] 2.5mg Take 1 tablet by mouth daily [facility] letrozole 2.5 mg tablet 3-0 4-20 00:00: 00 Yes [id number] 2.5mg Take 1 tablet by mouth daily [facility] letrozole 2.5 mg tablet 3-0 4-20 00:00: 00 Yes [id number] 2.5mg Take 1 tablet by mouth daily [facility] letrozole 2.5 mg tablet 3-0 4-20 00:00: 00 Yes [id number] 2.5mg Take 1 tablet by mouth daily [facility] letrozole 2.5 mg tablet 3-0 20 00:00: 00 Yes [id number] 2.5mg Take 1 tablet by mouth daily [facility] letrozole 2.5 mg tablet 3-0 -20 00:00: 00 Yes [id number] 2.5mg Take 1 tablet by mouth daily [facility] letrozole 2.5 mg tablet 3-0 -20 00:00: 00 Yes [id number] 2.5mg Take 1 tablet by mouth daily [facility] letrozole 2.5 mg tablet 3-0 20 00:00: 00 Yes [id number] 2.5mg Take 1 tablet by mouth daily [facility] letrozole 2.5 mg tablet 3-0 20 00:00: 00 Yes [id number] 2.5mg Take 1 tablet by mouth daily [facility] letrozole 2.5 mg tablet 3-0 20 00:00: 00 Yes [id number] 2.5mg Take 1 tablet by mouth daily [facility] letrozole 2.5 mg tablet 3-0 20 00:00: 00 Yes [id number] 2.5mg Take 1 tablet by mouth daily [facility] letrozole 2.5 mg tablet 3-0 20 00:00: 00 Yes [id number] 2.5mg Take 1 tablet by mouth daily [facility] letrozole 2.5 mg tablet 3-0 20 00:00: 00 Yes [id number] 2.5mg Take 1 tablet by mouth daily [facility] letrozole 2.5 mg tablet 3-0 -20 00:00: 00 Yes [id number] 2.5mg Take 1 tablet by mouth daily [facility] letrozole 2.5 mg tablet 3-0 -20 00:00: 00 Yes [id number] 2.5mg Take 1 tablet by mouth daily [facility] letrozole 2.5 mg tablet 3-0 -20 00:00: 00 Yes [id number] 2.5mg Take 1 tablet by mouth daily [facility] letrozole 2.5 mg tablet 3-0 4-20 00:00: 00 Yes [id number] 2.5mg Take 1 tablet by mouth daily [facility] letrozole 2.5 mg tablet 3-0 4-20 00:00: 00 Yes [id number] 2.5mg Take 1 tablet by mouth daily [facility] letrozole 2.5 mg tablet 3-0 4-20 00:00: 00 Yes [id number] 2.5mg Take 1 tablet by mouth daily [facility] letrozole 2.5 mg tablet 3-0 4-20 00:00: 00 Yes [id number] 2.5mg Take 1 tablet by mouth daily [facility] letrozole 2.5 mg tablet 3-0 -20 00:00: 00 Yes [id number] 2.5mg Take 1 tablet by mouth daily [facility] letrozole 2.5 mg tablet 3-0 -20 00:00: 00 Yes [id number] 2.5mg Take 1 tablet by mouth daily [facility] letrozole 2.5 mg tablet 3-0 20 00:00: 00 Yes [id number] 2.5mg Take 1 tablet by mouth daily [facility] letrozole 2.5 mg tablet 3-0 20 00:00: 00 Yes [id number] 2.5mg Take 1 tablet by mouth daily [facility] letrozole 2.5 mg tablet 3-0 20 00:00: 00 Yes [id number] 2.5mg Take 1 tablet by mouth daily [facility] letrozole 2.5 mg tablet 3-0 4-20 00:00: 00 Yes [id number] 2.5mg Take 1 tablet by mouth daily [facility] letrozole 2.5 mg tablet 3-0 4-20 00:00: 00 Yes [id number] 2.5mg Take 1 tablet by mouth daily [facility] letrozole 2.5 mg tablet 3-0 4-20 00:00: 00 Yes [id number] 2.5mg Take 1 tablet by mouth daily [facility] letrozole 2.5 mg tablet 3-0 4-20 00:00: 00 Yes [id number] 2.5mg Take 1 tablet by mouth daily [facility] letrozole 2.5 mg tablet 3-0 20 00:00: 00 Yes [id number] 2.5mg Take 1 tablet by mouth daily [facility] letrozole 2.5 mg tablet 3-0 -20 00:00: 00 Yes [id number] 2.5mg Take 1 tablet by mouth daily [facility] letrozole 2.5 mg tablet 3-0 -20 00:00: 00 Yes [id number] 2.5mg Take 1 tablet by mouth daily [facility] letrozole 2.5 mg tablet 3-0 20 00:00: 00 Yes [id number] 2.5mg Take 1 tablet by mouth daily [facility] letrozole 2.5 mg tablet 3-0 20 00:00: 00 Yes [id number] 2.5mg Take 1 tablet by mouth daily [facility] letrozole 2.5 mg tablet 3-0 20 00:00: 00 Yes [id number] 2.5mg Take 1 tablet by mouth daily [facility] letrozole 2.5 mg tablet 3-0 20 00:00: 00 Yes [id number] 2.5mg Take 1 tablet by mouth daily [facility] letrozole 2.5 mg tablet 3-0 20 00:00: 00 Yes [id number] 2.5mg Take 1 tablet by mouth daily [facility] letrozole 2.5 mg tablet 3-0 20 00:00: 00 Yes [id number] 2.5mg Take 1 tablet by mouth daily [facility] letrozole 2.5 mg tablet 3-0 -20 00:00: 00 Yes [id number] 2.5mg Take 1 tablet by mouth daily [facility] letrozole 2.5 mg tablet 3-0 -20 00:00: 00 Yes [id number] 2.5mg Take 1 tablet by mouth daily [facility] letrozole 2.5 mg tablet 3-0 -20 00:00: 00 Yes [id number] 2.5mg Take 1 tablet by mouth daily [facility] letrozole 2.5 mg tablet 4-20 00:00: 00 01-22 00:00 :00 No [id number] 2.5mg Take 1 tablet by mouth daily [facility] letrozole 2.5 mg tablet -20 00:00: 00 01-22 00:00 :00 No [id number] 2.5mg Take 1 tablet by mouth daily [facility] pregabalin (LYRICA) 25 mg capsule 03-19 00:00: 00 04-30 00:00 :00 No [id number] 50mg Take 2 capsules by mouth in the morning and 2 capsules in the evening. [facility] pregabalin (LYRICA) 25 mg capsule 03-19 00:00: 00 04-30 00:00 :00 No [id number] 50mg Take 2 capsules by mouth in the morning and 2 capsules in the evening. [facility] pregabalin (LYRICA) 25 mg capsule 03-19 00:00: 00 04-30 00:00 :00 No [id number] 50mg Take 2 capsules by mouth in the morning and 2 capsules in the evening. [facility] trastuzumab -qyyp (TRAZIMERA) 640 mg in NaCl 0.9% (NS) 250 mL infusion 02-26 17:00: 00 02-26 18:05 :00 No [id number] 8mg/kg 640 mg (rounded from 636 mg = 8 mg/kg ?79.5 kg Treatment plan Recorded weight), IV Infusion, ONCE, Administer over 60 Minutes, On Thu02/26/23 at 1200, For 1 dose
Sh ould be diluted in 0.9% Sodium Chloride only; DO NOT USE D5W. Diluted solutions may be stored in refrigerat or for up to 24 hours prior to use.
[facility] acetaminoph en (TYLENOL) tablet 650 mg 02-26 16:30: 00 02-26 16:30 :00 No [id number] 650mg 650 mg, Oral, ONCE, 1 dose, On Thu02/26/23 at 1130, Routine [facility] diphenhydrA MINE (BENADRYL) injection 25 mg 02-26 16:30: 00 02-26 16:30 :00 No [id number] 25mg 25 mg, Slow IV Push, ONCE, 1 dose, On Thu02/26/23 at 1130, Routine [facility] heparin lock flush (HEPARIN LOCKFLUSH(P ORCINE)(PF) ) 100 unit/mL injection 500 Units 02-26 16:17: 23 02-27 16:16 :23 No [id number] 500U 500 Units, IV Push, PRN, Starting on Thu02/26/23 at 1117, Until Thu02/27/23 at 1116, Routine [facility] DULoxetine 60 mg capsule 2022-0 16 00:00: 00 Yes [id number] 60mg Take 1 capsule by mouth in the morning. [facility] DULoxetine 60 mg capsule 2022-0 16 00:00: 00 Yes [id number] 60mg Take 1 capsule by mouth in the morning. [facility] DULoxetine 60 mg capsule 3-0 3-16 00:00: 00 Yes [id number] 60mg Take 1 capsule by mouth in the morning. [facility] DULoxetine 60 mg capsule 3-0 3-16 00:00: 00 Yes [id number] 60mg Take 1 capsule by mouth in the morning. [facility] DULoxetine 60 mg capsule 3-0 3-16 00:00: 00 Yes [id number] 60mg Take 1 capsule by mouth in the morning. [facility] DULoxetine 60 mg capsule 3-0 3-16 00:00: 00 Yes [id number] 60mg Take 1 capsule by mouth in the morning. [facility] DULoxetine 60 mg capsule 3-0 3-16 00:00: 00 Yes [id number] 60mg Take 1 capsule by mouth in the morning. [facility] DULoxetine 60 mg capsule 3-0 3-16 00:00: 00 Yes [id number] 60mg Take 1 capsule by mouth in the morning. [facility] DULoxetine 60 mg capsule 3-0 3-16 00:00: 00 Yes [id number] 60mg Take 1 capsule by mouth in the morning. [facility] DULoxetine 60 mg capsule 3-0 3-16 00:00: 00 Yes [id number] 60mg Take 1 capsule by mouth in the morning. [facility] DULoxetine 60 mg capsule 3-0 3-16 00:00: 00 Yes [id number] 60mg Take 1 capsule by mouth in the morning. [facility] DULoxetine 60 mg capsule 3-0 3-16 00:00: 00 Yes [id number] 60mg Take 1 capsule by mouth in the morning. [facility] DULoxetine 60 mg capsule 3-0 3-16 00:00: 00 Yes [id number] 60mg Take 1 capsule by mouth in the morning. [facility] DULoxetine 60 mg capsule 3-0 3-16 00:00: 00 Yes [id number] 60mg Take 1 capsule by mouth in the morning. [facility] DULoxetine 60 mg capsule 3-0 3-16 00:00: 00 Yes [id number] 60mg Take 1 capsule by mouth in the morning. [facility] DULoxetine 60 mg capsule 3-0 3-16 00:00: 00 Yes [id number] 60mg Take 1 capsule by mouth in the morning. [facility] DULoxetine 60 mg capsule 3-0 3-16 00:00: 00 Yes [id number] 60mg Take 1 capsule by mouth in the morning. [facility] DULoxetine 60 mg capsule 3-0 3-16 00:00: 00 Yes [id number] 60mg Take 1 capsule by mouth in the morning. [facility] DULoxetine 60 mg capsule 3-0 3-16 00:00: 00 Yes [id number] 60mg Take 1 capsule by mouth in the morning. [facility] DULoxetine 60 mg capsule 2023-0 3-16 00:00: 00 Yes [id number] 60mg Take 1 capsule by mouth in the morning. [facility] DULoxetine 60 mg capsule 2023-0 3-16 00:00: 00 Yes [id number] 60mg Take 1 capsule by mouth in the morning. [facility] DULoxetine 60 mg capsule 3-0 3-16 00:00: 00 Yes [id number] 60mg Take 1 capsule by mouth in the morning. [facility] DULoxetine 60 mg capsule 3-0 3-16 00:00: 00 Yes [id number] 60mg Take 1 capsule by mouth in the morning. [facility] DULoxetine 60 mg capsule 3-0 3-16 00:00: 00 Yes [id number] 60mg Take 1 capsule by mouth in the morning. [facility] DULoxetine 60 mg capsule 3-0 3-16 00:00: 00 Yes [id number] 60mg Take 1 capsule by mouth in the morning. [facility] DULoxetine 60 mg capsule 3-0 3-16 00:00: 00 Yes [id number] 60mg Take 1 capsule by mouth in the morning. [facility] DULoxetine 60 mg capsule 3-0 3-16 00:00: 00 Yes [id number] 60mg Take 1 capsule by mouth in the morning. [facility] DULoxetine 60 mg capsule 3-0 3-16 00:00: 00 Yes [id number] 60mg Take 1 capsule by mouth in the morning. [facility] DULoxetine 60 mg capsule 3-0 3-16 00:00: 00 Yes [id number] 60mg Take 1 capsule by mouth in the morning. [facility] DULoxetine 60 mg capsule 3-0 3-16 00:00: 00 Yes [id number] 60mg Take 1 capsule by mouth in the morning. [facility] DULoxetine 60 mg capsule 3-0 3-16 00:00: 00 Yes [id number] 60mg Take 1 capsule by mouth in the morning. [facility] DULoxetine 60 mg capsule 3-0 3-16 00:00: 00 Yes [id number] 60mg Take 1 capsule by mouth in the morning. [facility] DULoxetine 60 mg capsule 2023-0 3-16 00:00: 00 Yes [id number] 60mg Take 1 capsule by mouth in the morning. [facility] DULoxetine 60 mg capsule 2022-0 3-16 00:00: 00 Yes [id number] 60mg Take 1 capsule by mouth in the morning. [facility] DULoxetine 60 mg capsule 2022-0 3-16 00:00: 00 05-21 00:00 :00 No [id number] 60mg Take 1 capsule by mouth in the morning. [facility] DULoxetine 60 mg capsule 2022-0 316 00:00: 00 05-21 00:00 :00 No [id number] 60mg Take 1 capsule by mouth in the morning. [facility] DULoxetine 60 mg capsule 2022-0 16 00:00: 00 05-21 00:00 :00 No [id number] 60mg Take 1 capsule by mouth in the morning. [facility] DULoxetine 60 mg capsule 2022-0 16 00:00: 00 05-21 00:00 :00 No [id number] 60mg Take 1 capsule by mouth in the morning. [facility] DULoxetine 30 mg capsule 2022-0 02-05 00:00: 00 Yes [id number] 30mg Take 1 capsule by mouth in the morning. [facility] lisinopriL 20 mg tablet 2022-0 02-05 00:00: 00 Yes [id number] 20mg Take 1 tablet by mouth in the morning. [facility] gabapentin 300 mg capsule 2022-0 3 00:00: 00 Yes [id number] 300mg Take 1 capsule by mouth in the morning and 1 capsule at noon and 1 capsule in the evening. [facility] DULoxetine 30 mg capsule 2022-0 3- 00:00: 00 Yes [id number] 30mg Take 1 capsule by mouth in the morning. [facility] lisinopriL 20 mg tablet 2022-0 3- 00:00: 00 Yes [id number] 20mg Take 1 tablet by mouth in the morning. [facility] gabapentin 300 mg capsule 2022-0 3- 00:00: 00 Yes [id number] 300mg Take 1 capsule by mouth in the morning and 1 capsule at noon and 1 capsule in the evening. [facility] DULoxetine 30 mg capsule 2022-0 02-05 00:00: 00 Yes [id number] 30mg Take 1 capsule by mouth in the morning. [facility] lisinopriL 20 mg tablet 2022-0 02-05 00:00: 00 Yes [id number] 20mg Take 1 tablet by mouth in the morning. [facility] gabapentin 300 mg capsule 2022-0 02-05 00:00: 00 Yes [id number] 300mg Take 1 capsule by mouth in the morning and 1 capsule at noon and 1 capsule in the evening. [facility] DULoxetine 30 mg capsule 2022-0 02-05 00:00: 00 Yes [id number] 30mg Take 1 capsule by mouth in the morning. [facility] lisinopriL 20 mg tablet 2022-0 02-05 00:00: 00 Yes [id number] 20mg Take 1 tablet by mouth in the morning. [facility] gabapentin 300 mg capsule 2022-0 02-05 00:00: 00 Yes [id number] 300mg Take 1 capsule by mouth in the morning and 1 capsule at noon and 1 capsule in the evening. [facility] DULoxetine 30 mg capsule 2022-0 02-05 00:00: 00 Yes [id number] 30mg Take 1 capsule by mouth in the morning. [facility] lisinopriL 20 mg tablet 2022-0 02-05 00:00: 00 Yes [id number] 20mg Take 1 tablet by mouth in the morning. [facility] gabapentin 300 mg capsule 2022-0 02-05 00:00: 00 Yes [id number] 300mg Take 1 capsule by mouth in the morning and 1 capsule at noon and 1 capsule in the evening. [facility] DULoxetine 30 mg capsule 2022-0 02-05 00:00: 00 Yes [id number] 30mg Take 1 capsule by mouth in the morning. [facility] lisinopriL 20 mg tablet 2022-0 02-05 00:00: 00 Yes [id number] 20mg Take 1 tablet by mouth in the morning. [facility] gabapentin 300 mg capsule 2023-0 3- 00:00: 00 Yes [id number] 300mg Take 1 capsule by mouth in the morning and 1 capsule at noon and 1 capsule in the evening. [facility] DULoxetine 30 mg capsule 2022-0 3- 00:00: 00 Yes [id number] 30mg Take 1 capsule by mouth in the morning. [facility] lisinopriL 20 mg tablet 3-0 3- 00:00: 00 Yes [id number] 20mg Take 1 tablet by mouth in the morning. [facility] gabapentin 300 mg capsule 3-0 02-05 00:00: 00 Yes [id number] 300mg Take 1 capsule by mouth in the morning and 1 capsule at noon and 1 capsule in the evening. [facility] DULoxetine 30 mg capsule 2022-0 02-05 00:00: 00 Yes [id number] 30mg Take 1 capsule by mouth in the morning. [facility] lisinopriL 20 mg tablet 3-0 02-05 00:00: 00 Yes [id number] 20mg Take 1 tablet by mouth in the morning. [facility] gabapentin 300 mg capsule 3-0 02-05 00:00: 00 Yes [id number] 300mg Take 1 capsule by mouth in the morning and 1 capsule at noon and 1 capsule in the evening. [facility] DULoxetine 30 mg capsule 3-0 02-05 00:00: 00 Yes [id number] 30mg Take 1 capsule by mouth in the morning. [facility] lisinopriL 20 mg tablet 3-0 - 00:00: 00 Yes [id number] 20mg Take 1 tablet by mouth in the morning. [facility] gabapentin 300 mg capsule 3-0 3- 00:00: 00 Yes [id number] 300mg Take 1 capsule by mouth in the morning and 1 capsule at noon and 1 capsule in the evening. [facility] gabapentin 300 mg capsule 3-0 02-05 00:00: 00 Yes [id number] 300mg Take 1 capsule by mouth in the morning and 1 capsule at noon and 1 capsule in the evening. [facility] gabapentin 300 mg capsule 2023-0 3- 00:00: 00 Yes [id number] 300mg Take 1 capsule by mouth in the morning and 1 capsule at noon and 1 capsule in the evening. [facility] gabapentin 300 mg capsule 3-0 3- 00:00: 00 Yes [id number] 300mg Take 1 capsule by mouth in the morning and 1 capsule at noon and 1 capsule in the evening. [facility] gabapentin 300 mg capsule 3-0 3- 00:00: 00 Yes [id number] 300mg Take 1 capsule by mouth in the morning and 1 capsule at noon and 1 capsule in the evening. [facility] gabapentin 300 mg capsule 2022-0 3 00:00: 00 03-19 00:00 :00 No [id number] 300mg Take 1 capsule by mouth in the morning and 1 capsule at noon and 1 capsule in the evening. [facility] gabapentin 300 mg capsule 2022-0 02-05 00:00: 00 03-19 00:00 :00 No [id number] 300mg Take 1 capsule by mouth in the morning and 1 capsule at noon and 1 capsule in the evening. [facility] gabapentin 300 mg capsule 2022-0 3 00:00: 00 03-19 00:00 :00 No [id number] 300mg Take 1 capsule by mouth in the morning and 1 capsule at noon and 1 capsule in the evening. [facility] gabapentin 300 mg capsule 2022-0 3 00:00: 00 03-19 00:00 :00 No [id number] 300mg Take 1 capsule by mouth in the morning and 1 capsule at noon and 1 capsule in the evening. [facility] gabapentin 300 mg capsule 2022-0 3- 00:00: 00 03-19 00:00 :00 No [id number] 300mg Take 1 capsule by mouth in the morning and 1 capsule at noon and 1 capsule in the evening. [facility] DULoxetine 30 mg capsule 2022-0 3-09 00:00: 00 02-26 00:00 :00 No [id number] 30mg Take 1 capsule by mouth in the morning. [facility] lisinopriL 20 mg tablet 2022-0 3-09 00:00: 00 02-26 00:00 :00 No [id number] 20mg Take 1 tablet by mouth in the morning. [facility] DULoxetine 30 mg capsule 2022-0 3-09 00:00: 00 02-26 00:00 :00 No [id number] 30mg Take 1 capsule by mouth in the morning. [facility] lisinopriL 20 mg tablet 2022-0 3- 00:00: 00 02-26 00:00 :00 No [id number] 20mg Take 1 tablet by mouth in the morning. [facility] DULoxetine 30 mg capsule 2022-0 3 00:00: 00 02-26 00:00 :00 No [id number] 30mg Take 1 capsule by mouth in the morning. [facility] lisinopriL 20 mg tablet 2022-0 3 00:00: 00 02-26 00:00 :00 No [id number] 20mg Take 1 tablet by mouth in the morning. [facility] DULoxetine 30 mg capsule 2022-0 3 00:00: 00 02-26 00:00 :00 No [id number] 30mg Take 1 capsule by mouth in the morning. [facility] lisinopriL 20 mg tablet 2022-0 3 00:00: 00 02-26 00:00 :00 No [id number] 20mg Take 1 tablet by mouth in the morning. [facility] DULoxetine 30 mg capsule 2022-0 3- 00:00: 00 02-26 00:00 :00 No [id number] 30mg Take 1 capsule by mouth in the morning. [facility] lisinopriL 20 mg tablet 2022-0 3-09 00:00: 00 02-26 00:00 :00 No [id number] 20mg Take 1 tablet by mouth in the morning. [facility] traMADoL (ULTRAM) tablet 50 mg 2022-0 2-26 02:15: 00 01-25 01:15 :00 No 50mg 50 mg, Oral, ONCE, 1 dose, On 01/24/23 at 2015, Routine [facility] ondansetron (ZOFRAN (PF)) injection 4 mg 01-24 23:15: 00 01-24 23:04 :00 No 4mg 4 mg, Slow IV Push, ONCE, 1 dose, On 01/24/23 at 1715, [facility] morpHINE (4 mg/mL) injection 4 mg 01-24 23:15: 00 01-24 23:02 :00 No 4mg 4 mg, Slow IV Push, ONCE, 1 dose, On 01/24/23 at 1715, STAT [facility] traMADoL 50 mg tablet 01-24 00:00: 00 Yes [id number] 50mg Take 1 tablet by mouth every 6 (six) hours as needed for Pain (scale 7-10). Indication s[facility] 01-24 00:00: 00 Yes [id number] 50mg Take 1 tablet by mouth every 6 (six) hours as needed for Pain (scale 7-10). Indication s[facility] 01-24 00:00: 00 Yes [id number] 50mg Take 1 tablet by mouth every 6 (six) hours as needed for Pain (scale 7-10). Indication s: acute pain [facility] traMADoL 50 mg tablet 01-24 00:00: 00 Yes [id number] 50mg Take 1 tablet by mouth every 6 (six) hours as needed for Pain (scale 7-10). Indication s: acute pain [facility] traMADoL 50 mg tablet 01-24 00:00: 00 Yes [id number] 50mg Take 1 tablet by mouth every 6 (six) hours as needed for Pain (scale 7-10). Indication s: acute pain [facility] traMADoL 50 mg tablet 01-24 00:00: 00 Yes [id number] 50mg Take 1 tablet by mouth every 6 (six) hours as needed for Pain (scale 7-10). Indication s: acute pain [facility] traMADoL 50 mg tablet 2022-0 2-25 00:00: 00 Yes [id number] 50mg Take 1 tablet by mouth every 6 (six) hours as needed for Pain (scale 7-10). Indication s: acute pain [facility] traMADoL 50 mg tablet 2022-0 2-25 00:00: 00 Yes [id number] 50mg Take 1 tablet by mouth every 6 (six) hours as needed for Pain (scale 7-10). Indication s: acute pain [facility] traMADoL 50 mg tablet 2022-0 2-25 00:00: 00 Yes [id number] 50mg Take 1 tablet by mouth every 6 (six) hours as needed for Pain (scale 7-10). Indication s: acute pain [facility] traMADoL 50 mg tablet 2022-0 2-25 00:00: 00 Yes [id number] 50mg Take 1 tablet by mouth every 6 (six) hours as needed for Pain (scale 7-10). Indication s: acute pain [facility] traMADoL 50 mg tablet 2022-0 2-25 00:00: 00 Yes [id number] 50mg Take 1 tablet by mouth every 6 (six) hours as needed for Pain (scale 7-10). Indication s: acute pain [facility] traMADoL 50 mg tablet 2022-0 2-25 00:00: 00 Yes [id number] 50mg Take 1 tablet by mouth every 6 (six) hours as needed for Pain (scale 7-10). Indication s: acute pain [facility] traMADoL 50 mg tablet 2022-0 2-25 00:00: 00 Yes [id number] 50mg Take 1 tablet by mouth every 6 (six) hours as needed for Pain (scale 7-10). Indication s: acute pain [facility] traMADoL 50 mg tablet 2022-0 2-25 00:00: 00 02-26 00:00 :00 No [id number] 50mg Take 1 tablet by mouth every 6 (six) hours as needed for Pain (scale 7-10). Indication s: acute pain [facility] traMADoL 50 mg tablet 2022-0 2-25 00:00: 00 02-26 00:00 :00 No [id number] 50mg Take 1 tablet by mouth every 6 (six) hours as needed for Pain (scale 7-10). Indication s: acute pain [facility] traMADoL 50 mg tablet 3-0 2-25 00:00: 00 02-26 00:00 :00 No [id number] 50mg Take 1 tablet by mouth every 6 (six) hours as needed for Pain (scale 7-10). Indication s: acute pain [facility] traMADoL 50 mg tablet 3-0 2-25 00:00: 00 02-26 00:00 :00 No [id number] 50mg Take 1 tablet by mouth every 6 (six) hours as needed for Pain (scale 7-10). Indication s: acute pain [facility] traMADoL 50 mg tablet 3-0 2-25 00:00: 00 02-26 00:00 :00 No [id number] 50mg Take 1 tablet by mouth every 6 (six) hours as needed for Pain (scale 7-10). Indication s: acute pain [facility] gabapentin 300 mg capsule 3-0 2-15 00:00: 00 Yes [id number] 300mg Take 1 capsule by mouth in the morning and 1 capsule in the evening. [facility] gabapentin 300 mg capsule 2023-0 2-15 00:00: 00 Yes [id number] 300mg Take 1 capsule by mouth in the morning and 1 capsule in the evening. [facility] gabapentin 300 mg capsule 2023-0 2-15 00:00: 00 Yes [id number] 300mg Take 1 capsule by mouth in the morning and 1 capsule in the evening. [facility] gabapentin 300 mg capsule 2023-0 2-15 00:00: 00 Yes [id number] 300mg Take 1 capsule by mouth in the morning and 1 capsule in the evening. [facility] gabapentin 300 mg capsule 2023-0 2-15 00:00: 00 Yes [id number] 300mg Take 1 capsule by mouth in the morning and 1 capsule in the evening. [facility] gabapentin 300 mg capsule 2023-0 2-15 00:00: 00 Yes [id number] 300mg Take 1 capsule by mouth in the morning and 1 capsule in the evening. [facility] gabapentin 300 mg capsule 2023-0 2-15 00:00: 00 Yes [id number] 300mg Take 1 capsule by mouth in the morning and 1 capsule in the evening. [facility] mg capsule 2023-0 2-15 00:00: 00 Yes [id number] 300mg Take 1 capsule by mouth in the morning and 1 capsule in the evening. [facility] gabapentin 300 mg capsule 2023-0 2-15 00:00: 00 Yes [id number] 300mg Take 1 capsule by mouth in the morning and 1 capsule in the evening. [facility] gabapentin 300 mg capsule 2023-0 2-15 00:00: 00 Yes [id number] 300mg Take 1 capsule by mouth in the morning and 1 capsule in the evening. [facility] gabapentin 300 mg capsule 2023-0 2-15 00:00: 00 Yes [id number] 300mg Take 1 capsule by mouth in the morning and 1 capsule in the evening. [facility] gabapentin 300 mg capsule 2023-0 2-15 00:00: 00 Yes [id number] 300mg Take 1 capsule by mouth in the morning and 1 capsule in the evening. [facility] gabapentin 300 mg capsule 2023-0 2-15 00:00: 00 Yes [id number] 300mg Take 1 capsule by mouth in the morning and 1 capsule in the evening. [facility] gabapentin 300 mg capsule 2023-0 2-15 00:00: 00 Yes [id number] 300mg Take 1 capsule by mouth in the morning and 1 capsule in the evening. [facility] gabapentin 300 mg capsule 2023-0 2-15 00:00: 00 02-05 00:00 :00 No [id number] 300mg Take 1 capsule by mouth in the morning and 1 capsule in the evening. [facility] gabapentin 300 mg capsule 2023-0 2-15 00:00: 00 02-05 00:00 :00 No [id number] 300mg Take 1 capsule by mouth in the morning and 1 capsule in the evening. [facility] gabapentin 300 mg capsule 2023-0 2-15 00:00: 00 02-05 00:00 :00 No [id number] 300mg Take 1 capsule by mouth in the morning and 1 capsule in the evening. [facility] gabapentin 300 mg capsule 01-14 00:00: 00 02-05 00:00 :00 No [id number] 300mg Take 1 capsule by mouth in the morning and 1 capsule in the evening. [facility] KCL (KLOR-CON M20) tablet 20 mEq 01-07 17:30: 00 01-07 16:45 :00 No [id number] 20meq 20 mEq, Oral, ONCE, 1 dose, On Thu01/07/23 at 1130, Routine [facility] KCL (KLOR-CON M20) tablet 20 mEq 01-07 17:30: 00 01-07 16:45 :00 No [id number] 20meq 20 mEq, Oral, ONCE, 1 dose, On Thu01/07/23 at 1130, Routine [facility] PACLitaxeL (TAXOL) 128.64 mg in NaCl 0.9% (NS) 250 mL IV infusion 01-07 16:30: 00 01-07 18:01 :00 No [id number] 64mg/m2 128.64 mg (64 mg/m2 ?2.01 m2 Treatment Plan BSA from Recorded weight), IV Infusion, ONCE, Administer over 60 Minutes, On Thu01/07/23 at 1030, For 1 dose
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 &nbs p;Administ er through a 0.22 micron in-line filter and nonsorbing administra tion set.
[facility] PACLitaxeL (TAXOL) 128.64 mg in NaCl 0.9% (NS) 250 mL IV infusion 01-07 16:30: 00 01-07 18:01 :00 No [id number] 64mg/m2 128.64 mg (64 mg/m2 ?2.01 m2 Treatment Plan BSA from Recorded weight), IV Infusion, ONCE, Administer over 60 Minutes, On Thu01/07/23 at 1030, For 1 dose
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 &nbs p;Administ er through a 0.22 micron in-line filter and nonsorbing administra tion set.
[facility] trastuzumab -qyyp (TRAZIMERA) 170 mg in NaCl 0.9% (NS) 250 mL infusion 01-07 15:30: 00 01-07 16:45 :00 No [id number] 2mg/kg 170 mg (rounded from 170.8 mg = 2 mg/kg ?85.4 kg Treatment plan Recorded weight), IV Infusion, ONCE, Administer over 60 Minutes, On Thu01/07/23 at 0930, For 1 dose
Sh ould be diluted in 0.9% Sodium Chloride only; DO NOT USE D5W. Diluted solutions may be stored in refrigerat or for up to 24 hours prior to use.
[facility] trastuzumab -qyyp (TRAZIMERA) 170 mg in NaCl 0.9% (NS) 250 mL infusion 01-07 15:30: 00 01-07 16:45 :00 No [id number] 2mg/kg 170 mg (rounded from 170.8 mg = 2 mg/kg ?85.4 kg Treatment plan Recorded weight), IV Infusion, ONCE, Administer over 60 Minutes, On Thu01/07/23 at 0930, For 1 dose
Sh ould be diluted in 0.9% Sodium Chloride only; DO NOT USE D5W. Diluted solutions may be stored in refrigerat or for up to 24 hours prior to use.
[facility] acetaminoph en (TYLENOL) tablet 650 mg 01-07 15:00: 00 01-07 14:59 :00 No [id number] 650mg 650 mg, Oral, ONCE, 1 dose, On Thu01/07/23 at 0900, Routine [facility] famotidine (PEPCID (PF)) injection 20 mg 01-07 15:00: 00 01-07 15:06 :00 No [id number] 20mg 20 mg, Slow IV Push, ONCE, 1 dose, On Thu01/07/23 at 0900, Routine [facility] diphenhydrA MINE (BENADRYL) injection 50 mg 2-08 15:00: 00 01-07 15:00 :00 No [id number] 50mg 50 mg, Slow IV Push, ONCE, 1 dose, On Thu01/07/23 at 0900, Routine [facility] dexamethaso ne sod phos PF injection 10 mg 2- 15:00: 00 01-07 15:10 :00 No [id number] 10mg 10 mg, Slow IV Push, ONCE, 1 dose, On Thu01/07/23 at 0900, 1 mL [facility] NaCl 0.9% (NS) bolus infusion 500 mL 01-07 15:00: 00 01-07 15:30 :00 No [id number] 500mL at 999 mL/hr, 500 mL, IV Piggyback, ONCE, 1 dose, On Thu01/07/23 at 0900, STAT [facility] acetaminoph en (TYLENOL) tablet 650 mg 01-07 15:00: 00 01-07 14:59 :00 No [id number] 650mg 650 mg, Oral, ONCE, 1 dose, On Thu01/07/23 at 0900, Routine [facility] famotidine (PEPCID (PF)) injection 20 mg 208 15:00: 00 01-07 15:06 :00 No [id number] 20mg 20 mg, Slow IV Push, ONCE, 1 dose, On Thu01/07/23 at 0900, Routine [facility] diphenhydrA MINE (BENADRYL) injection 50 mg 01-07 15:00: 00 01-07 15:00 :00 No [id number] 50mg 50 mg, Slow IV Push, ONCE, 1 dose, On Thu01/07/23 at 0900, Routine [facility] dexamethaso ne sod phos PF injection 10 mg 2-08 15:00: 00 01-07 15:10 :00 No [id number] 10mg 10 mg, Slow IV Push, ONCE, 1 dose, On Thu01/07/23 at 0900, 1 mL [facility] NaCl 0.9% (NS) bolus infusion 500 mL 01-07 15:00: 00 01-07 15:30 :00 No [id number] 500mL at 999 mL/hr, 500 mL, IV Piggyback, ONCE, 1 dose, On Thu01/07/23 at 0900, STAT [facility] heparin lock flush (HEPARIN LOCKFLUSH(P ORCINE)(PF) ) 100 unit/mL injection 500 Units 01-07 14:52: 29 01-08 14:51 :29 No [id number] 500U 500 Units, IV Push, PRN, Starting on Thu01/07/23 at 0852, Until Khalida 01/08/23 at 0851, Routine [facility] heparin lock flush (HEPARIN LOCKFLUSH(P ORCINE)(PF) ) 100 unit/mL injection 500 Units 01-07 14:52: 29 01-07 20:16 :22 No [id number] 500U 500 Units, IV Push, PRN, Starting on Thu01/07/23 at 0852, Until Thu01/07/23 at 1416, Routine [facility] gabapentin 300 mg capsule 01-07 00:00: 00 Yes [id number] 300mg Take 1 capsule by mouth at bedtime. [facility] gabapentin 300 mg capsule 01-07 00:00: 00 Yes [id number] 300mg Take 1 capsule by mouth at bedtime. [facility] gabapentin 300 mg capsule 01-07 00:00: 00 01-14 00:00 :00 No [id number] 300mg Take 1 capsule by mouth at bedtime. [facility] gabapentin 300 mg capsule 01-07 00:00: 00 01-14 00:00 :00 No [id number] 300mg Take 1 capsule by mouth at bedtime. [facility] PACLitaxeL (TAXOL) 160.8 mg in NaCl 0.9% (NS) 250 mL IV infusion 12-31 19:45: 00 12-31 21:01 :00 No [id number] 80mg/m2 160.8 mg (80 mg/m2 ?2.01 m2 Treatment Plan BSA from Recorded weight), IV Infusion, ONCE, Administer over 60 Minutes, On Thu12/31/22 at 1345, For 1 dose
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 &nbs p;Administ er through a 0.22 micron in-line filter and nonsorbing administra tion set.
[facility] PACLitaxeL (TAXOL) 160.8 mg in NaCl 0.9% (NS) 250 mL IV infusion 12-31 19:45: 00 12-31 21:01 :00 No [id number] 80mg/m2 160.8 mg (80 mg/m2 ?2.01 m2 Treatment Plan BSA from Recorded weight), IV Infusion, ONCE, Administer over 60 Minutes, On Thu12/31/22 at 1345, For 1 dose
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 &nbs p;Administ er through a 0.22 micron in-line filter and nonsorbing administra tion set.
[facility] trastuzumab -qyyp (TRAZIMERA) 170 mg in NaCl 0.9% (NS) 250 mL infusion 12-31 18:45: 00 12-31 20:01 :00 No [id number] 2mg/kg 170 mg (rounded from 170.8 mg = 2 mg/kg ?85.4 kg Treatment plan Recorded weight), IV Infusion, ONCE, Administer over 60 Minutes, On Thu12/31/22 at 1245, For 1 dose
Sh ould be diluted in 0.9% Sodium Chloride only; DO NOT USE D5W. Diluted solutions may be stored in refrigerat or for up to 24 hours prior to use.
[facility] trastuzumab -qyyp (TRAZIMERA) 170 mg in NaCl 0.9% (NS) 250 mL infusion 12-31 18:45: 00 12-31 20:01 :00 No [id number] 2mg/kg 170 mg (rounded from 170.8 mg = 2 mg/kg ?85.4 kg Treatment plan Recorded weight), IV Infusion, ONCE, Administer over 60 Minutes, On Thu12/31/22 at 1245, For 1 dose
Sh ould be diluted in 0.9% Sodium Chloride only; DO NOT USE D5W. Diluted solutions may be stored in refrigerat or for up to 24 hours prior to use.
[facility] atropine injection 0.25 mg 12-31 18:34: 36 01-01 18:33 :36 No [id number] .25mg 0.25 mg, IV Push, PRN, Starting on Thu12/31/22 at 1234, Until Khalida 01/01/23 at 1233, Routine, Stomach cramping, acute flushing. [facility] albuterol (PROVENTIL) 2.5 mg /3 mL (0.083 %) nebulizer solution 2.5 mg 12-31 18:34: 36 01-01 18:33 :36 No [id number] 2.5mg 2.5 mg, Inhalation , PRN - SEE INSTRUCTIO NS, Starting on Thu12/31/22 at 1234, Until Khalida 01/01/23 at 1233, Routine, Shortness of Breath, Wheezing, As needed for chemothera py reactions [facility] methylpredn isolone sod succ (SOLU-MEDRO L) injection 125 mg 12-31 18:34: 36 01-01 18:33 :36 No [id number] 125mg 125 mg, Slow IV Push, Administer over 3 Minutes, PRN - SEE INSTRUCTIO NS, Starting on Thu12/31/22 at 1234, Until Khalida 01/01/23 at 1233, Routine, As needed for chemothera py reactions [facility] EPINEPHrine (EPIPEN AUTO-INJECT OR) 0.3 mg/0.3 mL injection 0.3 mg 12-31 18:34: 36 01-01 18:33 :36 No [id number] .3mg 0.3 mg, Intramuscu lar, PRN - SEE INSTRUCTIO NS, Starting on Thu12/31/22 at 1234, Until Khalida 01/01/23 at 1233, Routine, As needed for chemothera py reactions [facility] diphenhydrA MINE (BENADRYL) injection 50 mg 12-31 18:34: 36 01-01 18:33 :36 No [id number] 50mg 50 mg, Slow IV Push, Administer over 2 Minutes, PRN - SEE INSTRUCTIO NS, Starting on Thu12/31/22 at 1234, Until Thu01/01/23 at 1233, Routine, As needed for chemothera py reactions< br>INDICAT ION: ANAPHYLAXI S [facility] proCHLORper azine (COMPAZINE) tablet 10 mg 12-31 18:34: 36 01-01 18:33 :36 No [id number] 10mg 10 mg, Oral, Q6HPRN, Starting on Thu12/31/22 at 1234, Until Thu01/01/23 at 1233, Routine, Nausea and Vomiting (N/V) [facility] heparin lock flush (HEPARIN LOCKFLUSH(P ORCINE)(PF) ) 100 unit/mL injection 500 Units 12-31 18:34: 36 01-01 18:33 :36 No [id number] 500U 500 Units, IV Push, PRN, Starting on Thu12/31/22 at 1234, Until Khalida 01/01/23 at 1233, Routine [facility] acetaminoph en (TYLENOL) tablet 650 mg 12-31 18:15: 00 12-31 18:35 :00 No [id number] 650mg 650 mg, Oral, ONCE, 1 dose, On Thu12/31/22 at 1215, Routine [facility] famotidine (PEPCID (PF)) injection 20 mg 12-31 18:15: 00 12-31 18:39 :00 No [id number] 20mg 20 mg, Slow IV Push, ONCE, 1 dose, On Thu12/31/22 at 1215, Routine [facility] diphenhydrA MINE (BENADRYL) injection 50 mg 12-31 18:15: 00 12-31 18:36 :00 No [id number] 50mg 50 mg, Slow IV Push, ONCE, 1 dose, On Thu12/31/22 at 1215, Routine [facility] dexamethaso ne sod phos PF injection 10 mg 12-31 18:15: 00 12-31 18:44 :00 No [id number] 10mg 10 mg, Slow IV Push, ONCE, 1 dose, On Thu12/31/22 at 1215, 1 mL [facility] NaCl 0.9% (NS) bolus infusion 500 mL 12-31 18:15: 00 12-31 21:05 :00 No [id number] 500mL at 999 mL/hr, 500 mL, IV Piggyback, ONCE, 1 dose, On Thu12/31/22 at 1215, STAT [facility] acetaminoph en (TYLENOL) tablet 650 mg 12-31 18:15: 12-31 18:35 :00 No [id number] 650mg 650 mg, Oral, ONCE, 1 dose, On Thu12/31/22 at 1215, Routine [facility] famotidine (PEPCID (PF)) injection 20 mg 12-31 18:15: 12-31 18:39 :00 No [id number] 20mg 20 mg, Slow IV Push, ONCE, 1 dose, On Thu12/31/22 at 1215, Routine [facility] diphenhydrA MINE (BENADRYL) injection 50 mg 12-31 18:15: 00 12-31 18:36 :00 No [id number] 50mg 50 mg, Slow IV Push, ONCE, 1 dose, On Thu12/31/22 at 1215, Routine [facility] dexamethaso ne sod phos PF injection 10 mg 12-31 18:15: 00 12-31 18:44 :00 No [id number] 10mg 10 mg, Slow IV Push, ONCE, 1 dose, On Thu12/31/22 at 1215, 1 mL [facility] NaCl 0.9% (NS) bolus infusion 500 mL 12-31 18:15: 00 12-31 21:05 :00 No [id number] 500mL at 999 mL/hr, 500 mL, IV Piggyback, ONCE, 1 dose, On Thu12/31/22 at 1215, STAT [facility] PACLitaxeL (TAXOL) 160.8 mg in NaCl 0.9% (NS) 250 mL IV infusion 12-24 17:45: 00 12-24 19:00 :00 No [id number] 80mg/m2 160.8 mg (80 mg/m2 ?2.01 m2 Treatment Plan BSA from Recorded weight), IV Infusion, ONCE, Administer over 60 Minutes, On Thu12/24/22 at 1145, For 1 dose
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 &nbs p;Administ er through a 0.22 micron in-line filter and nonsorbing administra tion set.
[facility] PACLitaxeL (TAXOL) 160.8 mg in NaCl 0.9% (NS) 250 mL IV infusion 12-24 17:45: 00 12-24 19:00 :00 No [id number] 80mg/m2 160.8 mg (80 mg/m2 ?2.01 m2 Treatment Plan BSA from Recorded weight), IV Infusion, ONCE, Administer over 60 Minutes, On Thu12/24/22 at 1145, For 1 dose
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 &nbs p;Administ er through a 0.22 micron in-line filter and nonsorbing administra tion set.
[facility] trastuzumab -qyyp (TRAZIMERA) 170 mg in NaCl 0.9% (NS) 250 mL infusion 12-24 16:45: 00 12-24 17:47 :00 No [id number] 2mg/kg 170 mg (rounded from 170.8 mg = 2 mg/kg ?85.4 kg Treatment plan Recorded weight), IV Infusion, ONCE, Administer over 60 Minutes, On Thu12/24/22 at 1045, For 1 dose
Sh ould be diluted in 0.9% Sodium Chloride only; DO NOT USE D5W. Diluted solutions may be stored in refrigerat or for up to 24 hours prior to use.
[facility] trastuzumab -qyyp (TRAZIMERA) 170 mg in NaCl 0.9% (NS) 250 mL infusion 12-24 16:45: 00 12-24 17:47 :00 No [id number] 2mg/kg 170 mg (rounded from 170.8 mg = 2 mg/kg ?85.4 kg Treatment plan Recorded weight), IV Infusion, ONCE, Administer over 60 Minutes, On Thu12/24/22 at 1045, For 1 dose
Sh ould be diluted in 0.9% Sodium Chloride only; DO NOT USE D5W. Diluted solutions may be stored in refrigerat or for up to 24 hours prior to use.
[facility] acetaminoph en (TYLENOL) tablet 650 mg 12-24 16:15: 00 12-24 16:27 :00 No [id number] 650mg 650 mg, Oral, ONCE, 1 dose, On Thu12/24/22 at 1015, Routine [facility] famotidine (PEPCID (PF)) injection 20 mg 12-24 16:15: 00 12-24 16:31 :00 No [id number] 20mg 20 mg, Slow IV Push, ONCE, 1 dose, On Thu12/24/22 at 1015, Routine [facility] diphenhydrA MINE (BENADRYL) injection 50 mg 12-24 16:15: 00 12-24 16:33 :00 No [id number] 50mg 50 mg, Slow IV Push, ONCE, 1 dose, On Thu12/24/22 at 1015, Routine [facility] dexamethaso ne sod phos PF injection 10 mg 12-24 16:15: 00 12-24 16:28 :00 No [id number] 10mg 10 mg, Slow IV Push, ONCE, 1 dose, On Thu12/24/22 at 1015, 1 mL [facility] NaCl 0.9% (NS) bolus infusion 500 mL 12-24 16:15: 00 12-24 16:57 :00 No [id number] 500mL at 999 mL/hr, 500 mL, IV Piggyback, ONCE, 1 dose, On Thu12/24/22 at 1015, STAT [facility] acetaminoph en (TYLENOL) tablet 650 mg 12-24 16:15: 00 12-24 16:27 :00 No [id number] 650mg 650 mg, Oral, ONCE, 1 dose, On Thu12/24/22 at 1015, Routine [facility] famotidine (PEPCID (PF)) injection 20 mg 12-24 16:15: 00 12-24 16:31 :00 No [id number] 20mg 20 mg, Slow IV Push, ONCE, 1 dose, On Thu12/24/22 at 1015, Routine [facility] diphenhydrA MINE (BENADRYL) injection 50 mg 12-24 16:15: 00 12-24 16:33 :00 No [id number] 50mg 50 mg, Slow IV Push, ONCE, 1 dose, On Thu12/24/22 at 1015, Routine [facility] dexamethaso ne sod phos PF injection 10 mg 12-24 16:15: 00 12-24 16:28 :00 No [id number] 10mg 10 mg, Slow IV Push, ONCE, 1 dose, On Thu12/24/22 at 1015, 1 mL [facility] NaCl 0.9% (NS) bolus infusion 500 mL 12-24 16:15: 00 12-24 16:57 :00 No [id number] 500mL at 999 mL/hr, 500 mL, IV Piggyback, ONCE, 1 dose, On Thu12/24/22 at 1015, STAT [facility] proCHLORper azine (COMPAZINE) tablet 10 mg 12-24 16:05: 35 12-25 16:04 :35 No [id number] 10mg 10 mg, Oral, Q6HPRN, Starting on Thu12/24/22 at 1005, Until Khalida 12/25/22 at 1004, Routine, Nausea and Vomiting (N/V) [facility] heparin lock flush (HEPARIN LOCKFLUSH(P ORCINE)(PF) ) 100 unit/mL injection 500 Units 12-24 16:05: 35 12-25 16:04 :35 No [id number] 500U 500 Units, IV Push, PRN, Starting on Thu12/24/22 at 1005, Until Thu12/25/22 at 1004, Routine [facility] heparin lock flush (HEPARIN LOCKFLUSH(P ORCINE)(PF) ) 100 unit/mL injection 500 Units 12-24 16:05: 35 12-24 22:04 :27 No [id number] 500U 500 Units, IV Push, PRN, Starting on Thu12/24/22 at 1005, Until Thu12/24/22 at 1604, Routine [facility] PACLitaxeL (TAXOL) 160.8 mg in NaCl 0.9% (NS) 250 mL IV infusion 12-17 17:45: 00 12-17 19:35 :00 No [id number] 80mg/m2 160.8 mg (80 mg/m2 ?2.01 m2 Treatment Plan BSA from Recorded weight), IV Infusion, ONCE, Administer over 60 Minutes, On Thu12/17/22 at 1145, For 1 dose
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 &nbs p;Administ er through a 0.22 micron in-line filter and nonsorbing administra tion set.
[facility] PACLitaxeL (TAXOL) 160.8 mg in NaCl 0.9% (NS) 250 mL IV infusion 12-17 17:45: 00 12-17 19:35 :00 No [id number] 80mg/m2 160.8 mg (80 mg/m2 ?2.01 m2 Treatment Plan BSA from Recorded weight), IV Infusion, ONCE, Administer over 60 Minutes, On Thu12/17/22 at 1145, For 1 dose
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 &nbs p;Administ er through a 0.22 micron in-line filter and nonsorbing administra tion set.
[facility] ondansetron (ZOFRAN (PF)) injection 8 mg 12-17 17:15: 00 12-17 16:55 :00 No [id number] 8mg 8 mg, Slow IV Push, ONCE, 1 dose, On Thu12/17/22 at 1115, Routine [facility] ondansetron (ZOFRAN (PF)) injection 8 mg 12-17 17:15: 00 12-17 16:55 :00 No [id number] 8mg 8 mg, Slow IV Push, ONCE, 1 dose, On Thu12/17/22 at 1115, Routine [facility] atropine injection 0.25 mg 12-17 17:07: 52 12-18 17:06 :52 No [id number] .25mg 0.25 mg, IV Push, PRN, Starting on Thu12/17/22 at 1107, Until Khalida 12/18/22 at 1106, Routine, Stomach cramping, acute flushing. [facility] albuterol (PROVENTIL) 2.5 mg /3 mL (0.083 %) nebulizer solution 2.5 mg 12-17 17:07: 52 12-18 17:06 :52 No [id number] 2.5mg 2.5 mg, Inhalation , PRN - SEE INSTRUCTIO NS, Starting on Thu12/17/22 at 1107, Until Khalida 12/18/22 at 1106, Routine, Shortness of Breath, Wheezing, As needed for chemothera py reactions [facility] methylpredn isolone sod succ (SOLU-MEDRO L) injection 125 mg 12-17 17:07: 52 12-18 17:06 :52 No [id number] 125mg 125 mg, Slow IV Push, Administer over 3 Minutes, PRN - SEE INSTRUCTIO NS, Starting on Thu12/17/22 at 1107, Until Khalida 12/18/22 at 1106, Routine, As needed for chemothera py reactions [facility] EPINEPHrine (EPIPEN AUTO-INJECT OR) 0.3 mg/0.3 mL injection 0.3 mg 12-17 17:07: 52 12-18 17:06 :52 No [id number] .3mg 0.3 mg, Intramuscu lar, PRN - SEE INSTRUCTIO NS, Starting on Thu12/17/22 at 1107, Until Thu12/18/22 at 1106, Routine, As needed for chemothera py reactions [facility] diphenhydrA MINE (BENADRYL) injection 50 mg 12-17 17:07: 52 12-18 17:06 :52 No [id number] 50mg 50 mg, Slow IV Push, Administer over 2 Minutes, PRN - SEE INSTRUCTIO NS, Starting on Thu12/17/22 at 1107, Until Thu12/18/22 at 1106, Routine, As needed for chemothera py reactions< br>INDICAT ION: ANAPHYLAXI S [facility] trastuzumab -qyyp (TRAZIMERA) 170 mg in NaCl 0.9% (NS) 250 mL infusion 12-17 16:45: 00 12-17 18:30 :00 No [id number] 2mg/kg 170 mg (rounded from 170.8 mg = 2 mg/kg ?85.4 kg Treatment plan Recorded weight), IV Infusion, ONCE, Administer over 60 Minutes, On Thu12/17/22 at 1045, For 1 dose
Sh ould be diluted in 0.9% Sodium Chloride only; DO NOT USE D5W. Diluted solutions may be stored in refrigerat or for up to 24 hours prior to use.
[facility] trastuzumab -qyyp (TRAZIMERA) 170 mg in NaCl 0.9% (NS) 250 mL infusion 12-17 16:45: 00 12-17 18:30 :00 No [id number] 2mg/kg 170 mg (rounded from 170.8 mg = 2 mg/kg ?85.4 kg Treatment plan Recorded weight), IV Infusion, ONCE, Administer over 60 Minutes, On Thu12/17/22 at 1045, For 1 dose
Sh ould be diluted in 0.9% Sodium Chloride only; DO NOT USE D5W. Diluted solutions may be stored in refrigerat or for up to 24 hours prior to use.
[facility] acetaminoph en (TYLENOL) tablet 650 mg 12-17 16:15: 00 12-17 16:55 :00 No [id number] 650mg 650 mg, Oral, ONCE, 1 dose, On Thu12/17/22 at 1015, Routine [facility] famotidine (PEPCID (PF)) injection 20 mg 12-17 16:15: 00 12-17 16:53 :00 No [id number] 20mg 20 mg, Slow IV Push, ONCE, 1 dose, On Thu12/17/22 at 1015, Routine [facility] diphenhydrA MINE (BENADRYL) injection 50 mg 12-17 16:15: 00 12-17 16:50 :00 No [id number] 50mg 50 mg, Slow IV Push, ONCE, 1 dose, On Thu12/17/22 at 1015, Routine [facility] dexamethaso ne sod phos PF injection 10 mg 12-17 16:15: 00 12-17 16:57 :00 No [id number] 10mg 10 mg, Slow IV Push, ONCE, 1 dose, On Thu12/17/22 at 1015, 1 mL [facility] acetaminoph en (TYLENOL) tablet 650 mg 12-17 16:15: 00 12-17 16:55 :00 No [id number] 650mg 650 mg, Oral, ONCE, 1 dose, On Thu12/17/22 at 1015, Routine [facility] famotidine (PEPCID (PF)) injection 20 mg 12-17 16:15: 00 12-17 16:53 :00 No [id number] 20mg 20 mg, Slow IV Push, ONCE, 1 dose, On Thu12/17/22 at 1015, Routine [facility] diphenhydrA MINE (BENADRYL) injection 50 mg 12-17 16:15: 00 12-17 16:50 :00 No [id number] 50mg 50 mg, Slow IV Push, ONCE, 1 dose, On Thu12/17/22 at 1015, Routine [facility] dexamethaso ne sod phos PF injection 10 mg 12-17 16:15: 00 12-17 16:57 :00 No [id number] 10mg 10 mg, Slow IV Push, ONCE, 1 dose, On Thu12/17/22 at 1015, 1 mL [facility] proCHLORper azine (COMPAZINE) tablet 10 mg 12-17 16:13: 24 12-18 16:12 :24 No [id number] 10mg 10 mg, Oral, Q6HPRN, Starting on Thu12/17/22 at 1013, Until Khalida 12/18/22 at 1012, Routine, Nausea and Vomiting (N/V) [facility] heparin lock flush (HEPARIN LOCKFLUSH(P ORCINE)(PF) ) 100 unit/mL injection 500 Units 12-17 16:13: 24 12-18 16:12 :24 No [id number] 500U 500 Units, IV Push, PRN, Starting on Thu12/17/22 at 1013, Until Khalida 12/18/22 at 1012, Routine [facility] ondansetron 4 mg disintegrat ing tablet 12-17 00:00: 00 Yes [id number] 4mg Take 1 tablet by mouth every 8 (eight) hours as needed for Nausea and Vomiting (N/V). [facility] ondansetron 4 mg disintegrat ing tablet 12-17 00:00: 00 Yes [id number] 4mg Take 1 tablet by mouth every 8 (eight) hours as needed for Nausea and Vomiting (N/V). [facility] ondansetron 4 mg disintegrat ing tablet 12-17 00:00: 00 Yes [id number] 4mg Take 1 tablet by mouth every 8 (eight) hours as needed for Nausea and Vomiting (N/V). [facility] ondansetron 4 mg disintegrat ing tablet 2023-0 1-18 00:00: 00 Yes [id number] 4mg Take 1 tablet by mouth every 8 (eight) hours as needed for Nausea and Vomiting (N/V). [facility] ondansetron 4 mg disintegrat ing tablet 3-0 18 00:00: 00 Yes [id number] 4mg Take 1 tablet by mouth every 8 (eight) hours as needed for Nausea and Vomiting (N/V). [facility] ondansetron 4 mg disintegrat ing tablet 3-0 18 00:00: 00 Yes [id number] 4mg Take 1 tablet by mouth every 8 (eight) hours as needed for Nausea and Vomiting (N/V). [facility] ondansetron 4 mg disintegrat ing tablet 2022-0 18 00:00: 00 Yes [id number] 4mg Take 1 tablet by mouth every 8 (eight) hours as needed for Nausea and Vomiting (N/V). [facility] ondansetron 4 mg disintegrat ing tablet 2022-0 18 00:00: 00 Yes [id number] 4mg Take 1 tablet by mouth every 8 (eight) hours as needed for Nausea and Vomiting (N/V). [facility] ondansetron 4 mg disintegrat ing tablet 2022-0 18 00:00: 00 Yes [id number] 4mg Take 1 tablet by mouth every 8 (eight) hours as needed for Nausea and Vomiting (N/V). [facility] ondansetron 4 mg disintegrat ing tablet 3-0 18 00:00: 00 Yes [id number] 4mg Take 1 tablet by mouth every 8 (eight) hours as needed for Nausea and Vomiting (N/V). [facility] ondansetron 4 mg disintegrat ing tablet 3-0 -18 00:00: 00 Yes [id number] 4mg Take 1 tablet by mouth every 8 (eight) hours as needed for Nausea and Vomiting (N/V). [facility] ondansetron 4 mg disintegrat ing tablet 3-0 -18 00:00: 00 Yes [id number] 4mg Take 1 tablet by mouth every 8 (eight) hours as needed for Nausea and Vomiting (N/V). [facility] ondansetron 4 mg disintegrat ing tablet 3-0 18 00:00: 00 Yes [id number] 4mg Take 1 tablet by mouth every 8 (eight) hours as needed for Nausea and Vomiting (N/V). [facility] ondansetron 4 mg disintegrat ing tablet 2022-0 18 00:00: 00 Yes [id number] 4mg Take 1 tablet by mouth every 8 (eight) hours as needed for Nausea and Vomiting (N/V). [facility] ondansetron 4 mg disintegrat ing tablet 2022-0 18 00:00: 00 Yes [id number] 4mg Take 1 tablet by mouth every 8 (eight) hours as needed for Nausea and Vomiting (N/V). [facility] ondansetron 4 mg disintegrat ing tablet 2022-0 18 00:00: 00 Yes [id number] 4mg Take 1 tablet by mouth every 8 (eight) hours as needed for Nausea and Vomiting (N/V). [facility] ondansetron 4 mg disintegrat ing tablet 2022-0 18 00:00: 00 Yes [id number] 4mg Take 1 tablet by mouth every 8 (eight) hours as needed for Nausea and Vomiting (N/V). [facility] ondansetron 4 mg disintegrat ing tablet 2022-0 18 00:00: 00 Yes [id number] 4mg Take 1 tablet by mouth every 8 (eight) hours as needed for Nausea and Vomiting (N/V). [facility] ondansetron 4 mg disintegrat ing tablet 2022-0 18 00:00: 00 Yes [id number] 4mg Take 1 tablet by mouth every 8 (eight) hours as needed for Nausea and Vomiting (N/V). [facility] ondansetron 4 mg disintegrat ing tablet 3-0 -18 00:00: 00 Yes [id number] 4mg Take 1 tablet by mouth every 8 (eight) hours as needed for Nausea and Vomiting (N/V). [facility] ondansetron 4 mg disintegrat ing tablet 3-0 -18 00:00: 00 Yes [id number] 4mg Take 1 tablet by mouth every 8 (eight) hours as needed for Nausea and Vomiting (N/V). [facility] ondansetron 4 mg disintegrat ing tablet 3-0 1-18 00:00: 00 Yes [id number] 4mg Take 1 tablet by mouth every 8 (eight) hours as needed for Nausea and Vomiting (N/V). [facility] ondansetron 4 mg disintegrat ing tablet 3-0 -18 00:00: 00 Yes [id number] 4mg Take 1 tablet by mouth every 8 (eight) hours as needed for Nausea and Vomiting (N/V). [facility] ondansetron 4 mg disintegrat ing tablet 3-0 -18 00:00: 00 Yes [id number] 4mg Take 1 tablet by mouth every 8 (eight) hours as needed for Nausea and Vomiting (N/V). [facility] ondansetron 4 mg disintegrat ing tablet 3-0 18 00:00: 00 Yes [id number] 4mg Take 1 tablet by mouth every 8 (eight) hours as needed for Nausea and Vomiting (N/V). [facility] ondansetron 4 mg disintegrat ing tablet 3-0 18 00:00: 00 Yes [id number] 4mg Take 1 tablet by mouth every 8 (eight) hours as needed for Nausea and Vomiting (N/V). [facility] ondansetron 4 mg disintegrat ing tablet 3-0 -18 00:00: 00 Yes [id number] 4mg Take 1 tablet by mouth every 8 (eight) hours as needed for Nausea and Vomiting (N/V). [facility] ondansetron 4 mg disintegrat ing tablet 3-0 1-18 00:00: 00 Yes [id number] 4mg Take 1 tablet by mouth every 8 (eight) hours as needed for Nausea and Vomiting (N/V). [facility] ondansetron 4 mg disintegrat ing tablet 3-0 1-18 00:00: 00 Yes [id number] 4mg Take 1 tablet by mouth every 8 (eight) hours as needed for Nausea and Vomiting (N/V). [facility] ondansetron 4 mg disintegrat ing tablet 3-0 1-18 00:00: 00 Yes [id number] 4mg Take 1 tablet by mouth every 8 (eight) hours as needed for Nausea and Vomiting (N/V). [facility] ondansetron 4 mg disintegrat ing tablet 2022-0 18 00:00: 00 Yes [id number] 4mg Take 1 tablet by mouth every 8 (eight) hours as needed for Nausea and Vomiting (N/V). [facility] ondansetron 4 mg disintegrat ing tablet 2022-0 18 00:00: 00 Yes [id number] 4mg Take 1 tablet by mouth every 8 (eight) hours as needed for Nausea and Vomiting (N/V). [facility] ondansetron 4 mg disintegrat ing tablet 2022-0 18 00:00: 00 Yes [id number] 4mg Take 1 tablet by mouth every 8 (eight) hours as needed for Nausea and Vomiting (N/V). [facility] ondansetron 4 mg disintegrat ing tablet 2022-0 18 00:00: 00 Yes [id number] 4mg Take 1 tablet by mouth every 8 (eight) hours as needed for Nausea and Vomiting (N/V). [facility] ondansetron 4 mg disintegrat ing tablet 2022-0 18 00:00: 00 Yes [id number] 4mg Take 1 tablet by mouth every 8 (eight) hours as needed for Nausea and Vomiting (N/V). [facility] ondansetron 4 mg disintegrat ing tablet 2022-0 18 00:00: 00 Yes [id number] 4mg Take 1 tablet by mouth every 8 (eight) hours as needed for Nausea and Vomiting (N/V). [facility] ondansetron 4 mg disintegrat ing tablet 3-0 18 00:00: 00 Yes [id number] 4mg Take 1 tablet by mouth every 8 (eight) hours as needed for Nausea and Vomiting (N/V). [facility] ondansetron 4 mg disintegrat ing tablet 3-0 -18 00:00: 00 Yes [id number] 4mg Take 1 tablet by mouth every 8 (eight) hours as needed for Nausea and Vomiting (N/V). [facility] ondansetron 4 mg disintegrat ing tablet 3-0 -18 00:00: 00 Yes [id number] 4mg Take 1 tablet by mouth every 8 (eight) hours as needed for Nausea and Vomiting (N/V). [facility] ondansetron 4 mg disintegrat ing tablet 3-0 -18 00:00: 00 Yes [id number] 4mg Take 1 tablet by mouth every 8 (eight) hours as needed for Nausea and Vomiting (N/V). [facility] ondansetron 4 mg disintegrat ing tablet 2022-0 18 00:00: 00 Yes [id number] 4mg Take 1 tablet by mouth every 8 (eight) hours as needed for Nausea and Vomiting (N/V). [facility] ondansetron 4 mg disintegrat ing tablet 2022-0 18 00:00: 00 Yes [id number] 4mg Take 1 tablet by mouth every 8 (eight) hours as needed for Nausea and Vomiting (N/V). [facility] ondansetron 4 mg disintegrat ing tablet 2022-0 18 00:00: 00 Yes [id number] 4mg Take 1 tablet by mouth every 8 (eight) hours as needed for Nausea and Vomiting (N/V). [facility] ondansetron 4 mg disintegrat ing tablet 2022-0 18 00:00: 00 Yes [id number] 4mg Take 1 tablet by mouth every 8 (eight) hours as needed for Nausea and Vomiting (N/V). [facility] ondansetron 4 mg disintegrat ing tablet 3-0 -18 00:00: 00 Yes [id number] 4mg Take 1 tablet by mouth every 8 (eight) hours as needed for Nausea and Vomiting (N/V). [facility] ondansetron 4 mg disintegrat ing tablet 3-0 -18 00:00: 00 Yes [id number] 4mg Take 1 tablet by mouth every 8 (eight) hours as needed for Nausea and Vomiting (N/V). [facility] ondansetron 4 mg disintegrat ing tablet 3-0 -18 00:00: 00 Yes [id number] 4mg Take 1 tablet by mouth every 8 (eight) hours as needed for Nausea and Vomiting (N/V). [facility] ondansetron 4 mg disintegrat ing tablet 3-0 -18 00:00: 00 Yes [id number] 4mg Take 1 tablet by mouth every 8 (eight) hours as needed for Nausea and Vomiting (N/V). [facility] ondansetron 4 mg disintegrat ing tablet 3-0 18 00:00: 00 Yes [id number] 4mg Take 1 tablet by mouth every 8 (eight) hours as needed for Nausea and Vomiting (N/V). [facility] ondansetron 4 mg disintegrat ing tablet 2022-0 18 00:00: 00 Yes [id number] 4mg Take 1 tablet by mouth every 8 (eight) hours as needed for Nausea and Vomiting (N/V). [facility] ondansetron 4 mg disintegrat ing tablet 2022-0 18 00:00: 00 Yes [id number] 4mg Take 1 tablet by mouth every 8 (eight) hours as needed for Nausea and Vomiting (N/V). [facility] ondansetron 4 mg disintegrat ing tablet 2022-0 18 00:00: 00 Yes [id number] 4mg Take 1 tablet by mouth every 8 (eight) hours as needed for Nausea and Vomiting (N/V). [facility] ondansetron 4 mg disintegrat ing tablet 3-0 18 00:00: 00 Yes [id number] 4mg Take 1 tablet by mouth every 8 (eight) hours as needed for Nausea and Vomiting (N/V). [facility] ondansetron 4 mg disintegrat ing tablet 3-0 -18 00:00: 00 Yes [id number] 4mg Take 1 tablet by mouth every 8 (eight) hours as needed for Nausea and Vomiting (N/V). [facility] ondansetron 4 mg disintegrat ing tablet 3-0 -18 00:00: 00 Yes [id number] 4mg Take 1 tablet by mouth every 8 (eight) hours as needed for Nausea and Vomiting (N/V). [facility] ondansetron 4 mg disintegrat ing tablet 2022-0 18 00:00: 00 Yes [id number] 4mg Take 1 tablet by mouth every 8 (eight) hours as needed for Nausea and Vomiting (N/V). [facility] ondansetron 4 mg disintegrat ing tablet 2022-0 18 00:00: 00 Yes [id number] 4mg Take 1 tablet by mouth every 8 (eight) hours as needed for Nausea and Vomiting (N/V). [facility] ondansetron 4 mg disintegrat ing tablet 2022-0 18 00:00: 00 Yes [id number] 4mg Take 1 tablet by mouth every 8 (eight) hours as needed for Nausea and Vomiting (N/V). [facility] ondansetron 4 mg disintegrat ing tablet 2022-0 18 00:00: 00 Yes [id number] 4mg Take 1 tablet by mouth every 8 (eight) hours as needed for Nausea and Vomiting (N/V). [facility] ondansetron 4 mg disintegrat ing tablet 0 18 00:00: 00 Yes [id number] 4mg Take 1 tablet by mouth every 8 (eight) hours as needed for Nausea and Vomiting (N/V). [facility] ondansetron 4 mg disintegrat ing tablet 0 18 00:00: 00 Yes [id number] 4mg Take 1 tablet by mouth every 8 (eight) hours as needed for Nausea and Vomiting (N/V). [facility] ondansetron 4 mg disintegrat ing tablet 2022-0 18 00:00: 00 Yes [id number] 4mg Take 1 tablet by mouth every 8 (eight) hours as needed for Nausea and Vomiting (N/V). [facility] ondansetron 4 mg disintegrat ing tablet 3-0 18 00:00: 00 Yes [id number] 4mg Take 1 tablet by mouth every 8 (eight) hours as needed for Nausea and Vomiting (N/V). [facility] ondansetron 4 mg disintegrat ing tablet 3-0 18 00:00: 00 Yes [id number] 4mg Take 1 tablet by mouth every 8 (eight) hours as needed for Nausea and Vomiting (N/V). [facility] ondansetron 4 mg disintegrat ing tablet 3-0 -18 00:00: 00 Yes [id number] 4mg Take 1 tablet by mouth every 8 (eight) hours as needed for Nausea and Vomiting (N/V). [facility] ondansetron 4 mg disintegrat ing tablet 3-0 -18 00:00: 00 Yes [id number] 4mg Take 1 tablet by mouth every 8 (eight) hours as needed for Nausea and Vomiting (N/V). [facility] ondansetron 4 mg disintegrat ing tablet 3-0 -18 00:00: 00 Yes [id number] 4mg Take 1 tablet by mouth every 8 (eight) hours as needed for Nausea and Vomiting (N/V). [facility] ondansetron 4 mg disintegrat ing tablet 2022-0 18 00:00: 00 Yes [id number] 4mg Take 1 tablet by mouth every 8 (eight) hours as needed for Nausea and Vomiting (N/V). [facility] ondansetron 4 mg disintegrat ing tablet 3-0 18 00:00: 00 Yes [id number] 4mg Take 1 tablet by mouth every 8 (eight) hours as needed for Nausea and Vomiting (N/V). [facility] ondansetron 4 mg disintegrat ing tablet 3-0 18 00:00: 00 Yes [id number] 4mg Take 1 tablet by mouth every 8 (eight) hours as needed for Nausea and Vomiting (N/V). [facility] ondansetron 4 mg disintegrat ing tablet 3-0 -18 00:00: 00 Yes [id number] 4mg Take 1 tablet by mouth every 8 (eight) hours as needed for Nausea and Vomiting (N/V). [facility] ondansetron 4 mg disintegrat ing tablet 3-0 1-18 00:00: 00 Yes [id number] 4mg Take 1 tablet by mouth every 8 (eight) hours as needed for Nausea and Vomiting (N/V). [facility] ondansetron 4 mg disintegrat ing tablet 3-0 1-18 00:00: 00 Yes [id number] 4mg Take 1 tablet by mouth every 8 (eight) hours as needed for Nausea and Vomiting (N/V). [facility] ondansetron 4 mg disintegrat ing tablet 3-0 18 00:00: 00 Yes [id number] 4mg Take 1 tablet by mouth every 8 (eight) hours as needed for Nausea and Vomiting (N/V). [facility] ondansetron 4 mg disintegrat ing tablet 3-0 18 00:00: 00 Yes [id number] 4mg Take 1 tablet by mouth every 8 (eight) hours as needed for Nausea and Vomiting (N/V). [facility] ondansetron 4 mg disintegrat ing tablet 3-0 18 00:00: 00 Yes [id number] 4mg Take 1 tablet by mouth every 8 (eight) hours as needed for Nausea and Vomiting (N/V). [facility] ondansetron 4 mg disintegrat ing tablet 3-0 18 00:00: 00 Yes [id number] 4mg Take 1 tablet by mouth every 8 (eight) hours as needed for Nausea and Vomiting (N/V). [facility] ondansetron 4 mg disintegrat ing tablet 3-0 18 00:00: 00 Yes [id number] 4mg Take 1 tablet by mouth every 8 (eight) hours as needed for Nausea and Vomiting (N/V). [facility] ondansetron 4 mg disintegrat ing tablet 3-0 18 00:00: 00 Yes [id number] 4mg Take 1 tablet by mouth every 8 (eight) hours as needed for Nausea and Vomiting (N/V). [facility] ondansetron 4 mg disintegrat ing tablet 3-0 -18 00:00: 00 Yes [id number] 4mg Take 1 tablet by mouth every 8 (eight) hours as needed for Nausea and Vomiting (N/V). [facility] ondansetron 4 mg disintegrat ing tablet 3-0 -18 00:00: 00 Yes [id number] 4mg Take 1 tablet by mouth every 8 (eight) hours as needed for Nausea and Vomiting (N/V). [facility] ondansetron 4 mg disintegrat ing tablet 3-0 18 00:00: 00 Yes [id number] 4mg Take 1 tablet by mouth every 8 (eight) hours as needed for Nausea and Vomiting (N/V). [facility] ondansetron 4 mg disintegrat ing tablet 3-0 18 00:00: 00 Yes [id number] 4mg Take 1 tablet by mouth every 8 (eight) hours as needed for Nausea and Vomiting (N/V). [facility] ondansetron 4 mg disintegrat ing tablet 2022-0 18 00:00: 00 Yes [id number] 4mg Take 1 tablet by mouth every 8 (eight) hours as needed for Nausea and Vomiting (N/V). [facility] ondansetron 4 mg disintegrat ing tablet 2022-0 18 00:00: 00 Yes [id number] 4mg Take 1 tablet by mouth every 8 (eight) hours as needed for Nausea and Vomiting (N/V). [facility] ondansetron 4 mg disintegrat ing tablet 2022-0 18 00:00: 00 Yes [id number] 4mg Take 1 tablet by mouth every 8 (eight) hours as needed for Nausea and Vomiting (N/V). [facility] ondansetron 4 mg disintegrat ing tablet 2022-0 18 00:00: 00 Yes [id number] 4mg Take 1 tablet by mouth every 8 (eight) hours as needed for Nausea and Vomiting (N/V). [facility] ondansetron 4 mg disintegrat ing tablet 3-0 18 00:00: 00 Yes [id number] 4mg Take 1 tablet by mouth every 8 (eight) hours as needed for Nausea and Vomiting (N/V). [facility] ondansetron 4 mg disintegrat ing tablet 3-0 -18 00:00: 00 Yes [id number] 4mg Take 1 tablet by mouth every 8 (eight) hours as needed for Nausea and Vomiting (N/V). [facility] ondansetron 4 mg disintegrat ing tablet 3-0 -18 00:00: 00 Yes [id number] 4mg Take 1 tablet by mouth every 8 (eight) hours as needed for Nausea and Vomiting (N/V). [facility] ondansetron 4 mg disintegrat ing tablet 3-0 1-18 00:00: 00 Yes [id number] 4mg Take 1 tablet by mouth every 8 (eight) hours as needed for Nausea and Vomiting (N/V). [facility] ondansetron 4 mg disintegrat ing tablet 3-0 1-18 00:00: 00 Yes [id number] 4mg Take 1 tablet by mouth every 8 (eight) hours as needed for Nausea and Vomiting (N/V). [facility] ondansetron 4 mg disintegrat ing tablet 3-0 -18 00:00: 00 Yes [id number] 4mg Take 1 tablet by mouth every 8 (eight) hours as needed for Nausea and Vomiting (N/V). [facility] ondansetron 4 mg disintegrat ing tablet 3-0 -18 00:00: 00 Yes [id number] 4mg Take 1 tablet by mouth every 8 (eight) hours as needed for Nausea and Vomiting (N/V). [facility] ondansetron 4 mg disintegrat ing tablet 3-0 -18 00:00: 00 Yes [id number] 4mg Take 1 tablet by mouth every 8 (eight) hours as needed for Nausea and Vomiting (N/V). [facility] ondansetron 4 mg disintegrat ing tablet 3-0 1-18 00:00: 00 Yes [id number] 4mg Take 1 tablet by mouth every 8 (eight) hours as needed for Nausea and Vomiting (N/V). [facility] ondansetron 4 mg disintegrat ing tablet 3-0 1-18 00:00: 00 Yes [id number] 4mg Take 1 tablet by mouth every 8 (eight) hours as needed for Nausea and Vomiting (N/V). [facility] ondansetron 4 mg disintegrat ing tablet 3-0 1-18 00:00: 00 Yes [id number] 4mg Take 1 tablet by mouth every 8 (eight) hours as needed for Nausea and Vomiting (N/V). [facility] ondansetron 4 mg disintegrat ing tablet 3-0 1-18 00:00: 00 Yes [id number] 4mg Take 1 tablet by mouth every 8 (eight) hours as needed for Nausea and Vomiting (N/V). [facility] ondansetron 4 mg disintegrat ing tablet 2022-0 18 00:00: 00 Yes [id number] 4mg Take 1 tablet by mouth every 8 (eight) hours as needed for Nausea and Vomiting (N/V). [facility] ondansetron 4 mg disintegrat ing tablet 3-0 18 00:00: 00 Yes [id number] 4mg Take 1 tablet by mouth every 8 (eight) hours as needed for Nausea and Vomiting (N/V). [facility] ondansetron 4 mg disintegrat ing tablet 2022-0 18 00:00: 00 Yes [id number] 4mg Take 1 tablet by mouth every 8 (eight) hours as needed for Nausea and Vomiting (N/V). [facility] ondansetron 4 mg disintegrat ing tablet 2022-0 18 00:00: 00 Yes [id number] 4mg Take 1 tablet by mouth every 8 (eight) hours as needed for Nausea and Vomiting (N/V). [facility] ondansetron 4 mg disintegrat ing tablet 2022-0 18 00:00: 00 Yes [id number] 4mg Take 1 tablet by mouth every 8 (eight) hours as needed for Nausea and Vomiting (N/V). [facility] ondansetron 4 mg disintegrat ing tablet 2022-0 18 00:00: 00 Yes [id number] 4mg Take 1 tablet by mouth every 8 (eight) hours as needed for Nausea and Vomiting (N/V). [facility] ondansetron 4 mg disintegrat ing tablet 3-0 18 00:00: 00 Yes [id number] 4mg Take 1 tablet by mouth every 8 (eight) hours as needed for Nausea and Vomiting (N/V). [facility] ondansetron 4 mg disintegrat ing tablet 3-0 -18 00:00: 00 Yes [id number] 4mg Take 1 tablet by mouth every 8 (eight) hours as needed for Nausea and Vomiting (N/V). [facility] ondansetron 4 mg disintegrat ing tablet 3-0 -18 00:00: 00 Yes [id number] 4mg Take 1 tablet by mouth every 8 (eight) hours as needed for Nausea and Vomiting (N/V). [facility] ondansetron 4 mg disintegrat ing tablet 3-0 -18 00:00: 00 Yes [id number] 4mg Take 1 tablet by mouth every 8 (eight) hours as needed for Nausea and Vomiting (N/V). [facility] ondansetron 4 mg disintegrat ing tablet 3-0 -18 00:00: 00 Yes [id number] 4mg Take 1 tablet by mouth every 8 (eight) hours as needed for Nausea and Vomiting (N/V). [facility] ondansetron 4 mg disintegrat ing tablet 2022-0 18 00:00: 00 Yes [id number] 4mg Take 1 tablet by mouth every 8 (eight) hours as needed for Nausea and Vomiting (N/V). [facility] ondansetron 4 mg disintegrat ing tablet 2022-0 18 00:00: 00 Yes [id number] 4mg Take 1 tablet by mouth every 8 (eight) hours as needed for Nausea and Vomiting (N/V). [facility] ondansetron 4 mg disintegrat ing tablet 3-0 18 00:00: 00 Yes [id number] 4mg Take 1 tablet by mouth every 8 (eight) hours as needed for Nausea and Vomiting (N/V). [facility] ondansetron 4 mg disintegrat ing tablet 3-0 -18 00:00: 00 Yes [id number] 4mg Take 1 tablet by mouth every 8 (eight) hours as needed for Nausea and Vomiting (N/V). [facility] ondansetron 4 mg disintegrat ing tablet 3-0 -18 00:00: 00 Yes [id number] 4mg Take 1 tablet by mouth every 8 (eight) hours as needed for Nausea and Vomiting (N/V). [facility] ondansetron 4 mg disintegrat ing tablet 3-0 -18 00:00: 00 Yes [id number] 4mg Take 1 tablet by mouth every 8 (eight) hours as needed for Nausea and Vomiting (N/V). [facility] ondansetron 4 mg disintegrat ing tablet 2022-0 18 00:00: 00 Yes [id number] 4mg Take 1 tablet by mouth every 8 (eight) hours as needed for Nausea and Vomiting (N/V). [facility] ondansetron 4 mg disintegrat ing tablet 2022-0 18 00:00: 00 Yes [id number] 4mg Take 1 tablet by mouth every 8 (eight) hours as needed for Nausea and Vomiting (N/V). [facility] ondansetron 4 mg disintegrat ing tablet 2022-0 18 00:00: 00 Yes [id number] 4mg Take 1 tablet by mouth every 8 (eight) hours as needed for Nausea and Vomiting (N/V). [facility] ondansetron 4 mg disintegrat ing tablet 2022-0 18 00:00: 00 Yes [id number] 4mg Take 1 tablet by mouth every 8 (eight) hours as needed for Nausea and Vomiting (N/V). [facility] ondansetron 4 mg disintegrat ing tablet 2022-0 18 00:00: 00 Yes [id number] 4mg Take 1 tablet by mouth every 8 (eight) hours as needed for Nausea and Vomiting (N/V). [facility] ondansetron 4 mg disintegrat ing tablet 3-0 18 00:00: 00 Yes [id number] 4mg Take 1 tablet by mouth every 8 (eight) hours as needed for Nausea and Vomiting (N/V). [facility] ondansetron 4 mg disintegrat ing tablet 3-0 -18 00:00: 00 Yes [id number] 4mg Take 1 tablet by mouth every 8 (eight) hours as needed for Nausea and Vomiting (N/V). [facility] ondansetron 4 mg disintegrat ing tablet 3-0 -18 00:00: 00 Yes [id number] 4mg Take 1 tablet by mouth every 8 (eight) hours as needed for Nausea and Vomiting (N/V). [facility] ondansetron 4 mg disintegrat ing tablet 3-0 18 00:00: 00 Yes [id number] 4mg Take 1 tablet by mouth every 8 (eight) hours as needed for Nausea and Vomiting (N/V). [facility] ondansetron 4 mg disintegrat ing tablet 2022-0 18 00:00: 00 Yes [id number] 4mg Take 1 tablet by mouth every 8 (eight) hours as needed for Nausea and Vomiting (N/V). [facility] ondansetron 4 mg disintegrat ing tablet 2022-0 18 00:00: 00 Yes [id number] 4mg Take 1 tablet by mouth every 8 (eight) hours as needed for Nausea and Vomiting (N/V). [facility] ondansetron 4 mg disintegrat ing tablet 2022-0 18 00:00: 00 Yes [id number] 4mg Take 1 tablet by mouth every 8 (eight) hours as needed for Nausea and Vomiting (N/V). [facility] ondansetron 4 mg disintegrat ing tablet 2022-0 18 00:00: 00 Yes [id number] 4mg Take 1 tablet by mouth every 8 (eight) hours as needed for Nausea and Vomiting (N/V). [facility] ondansetron 4 mg disintegrat ing tablet 2022-0 18 00:00: 00 Yes [id number] 4mg Take 1 tablet by mouth every 8 (eight) hours as needed for Nausea and Vomiting (N/V). [facility] ondansetron 4 mg disintegrat ing tablet 2022-0 18 00:00: 00 Yes [id number] 4mg Take 1 tablet by mouth every 8 (eight) hours as needed for Nausea and Vomiting (N/V). [facility] ondansetron 4 mg disintegrat ing tablet 3-0 18 00:00: 00 Yes [id number] 4mg Take 1 tablet by mouth every 8 (eight) hours as needed for Nausea and Vomiting (N/V). [facility] ondansetron 4 mg disintegrat ing tablet 3-0 -18 00:00: 00 Yes [id number] 4mg Take 1 tablet by mouth every 8 (eight) hours as needed for Nausea and Vomiting (N/V). [facility] ondansetron 4 mg disintegrat ing tablet 3-0 -18 00:00: 00 Yes [id number] 4mg Take 1 tablet by mouth every 8 (eight) hours as needed for Nausea and Vomiting (N/V). [facility] ondansetron 4 mg disintegrat ing tablet 3-0 -18 00:00: 00 Yes [id number] 4mg Take 1 tablet by mouth every 8 (eight) hours as needed for Nausea and Vomiting (N/V). [facility] ondansetron 4 mg disintegrat ing tablet 3-0 -18 00:00: 00 Yes [id number] 4mg Take 1 tablet by mouth every 8 (eight) hours as needed for Nausea and Vomiting (N/V). [facility] ondansetron 4 mg disintegrat ing tablet 3-0 18 00:00: 00 Yes [id number] 4mg Take 1 tablet by mouth every 8 (eight) hours as needed for Nausea and Vomiting (N/V). [facility] ondansetron 4 mg disintegrat ing tablet 3-0 18 00:00: 00 Yes [id number] 4mg Take 1 tablet by mouth every 8 (eight) hours as needed for Nausea and Vomiting (N/V). [facility] ondansetron 4 mg disintegrat ing tablet 3-0 18 00:00: 00 Yes [id number] 4mg Take 1 tablet by mouth every 8 (eight) hours as needed for Nausea and Vomiting (N/V). [facility] ondansetron 4 mg disintegrat ing tablet 3-0 -18 00:00: 00 Yes [id number] 4mg Take 1 tablet by mouth every 8 (eight) hours as needed for Nausea and Vomiting (N/V). [facility] ondansetron 4 mg disintegrat ing tablet 3-0 1-18 00:00: 00 Yes [id number] 4mg Take 1 tablet by mouth every 8 (eight) hours as needed for Nausea and Vomiting (N/V). [facility] ondansetron 4 mg disintegrat ing tablet 3-0 1-18 00:00: 00 Yes [id number] 4mg Take 1 tablet by mouth every 8 (eight) hours as needed for Nausea and Vomiting (N/V). [facility] ondansetron 4 mg disintegrat ing tablet 2022-0 18 00:00: 00 Yes [id number] 4mg Take 1 tablet by mouth every 8 (eight) hours as needed for Nausea and Vomiting (N/V). [facility] ondansetron 4 mg disintegrat ing tablet 3-0 18 00:00: 00 Yes [id number] 4mg Take 1 tablet by mouth every 8 (eight) hours as needed for Nausea and Vomiting (N/V). [facility] ondansetron 4 mg disintegrat ing tablet 2022-0 18 00:00: 00 Yes [id number] 4mg Take 1 tablet by mouth every 8 (eight) hours as needed for Nausea and Vomiting (N/V). [facility] ondansetron 4 mg disintegrat ing tablet 2022-0 18 00:00: 00 Yes [id number] 4mg Take 1 tablet by mouth every 8 (eight) hours as needed for Nausea and Vomiting (N/V). [facility] ondansetron 4 mg disintegrat ing tablet 2022-0 18 00:00: 00 Yes [id number] 4mg Take 1 tablet by mouth every 8 (eight) hours as needed for Nausea and Vomiting (N/V). [facility] ondansetron 4 mg disintegrat ing tablet 3-0 18 00:00: 00 Yes [id number] 4mg Take 1 tablet by mouth every 8 (eight) hours as needed for Nausea and Vomiting (N/V). [facility] ondansetron 4 mg disintegrat ing tablet 3-0 18 00:00: 00 Yes [id number] 4mg Take 1 tablet by mouth every 8 (eight) hours as needed for Nausea and Vomiting (N/V). [facility] ondansetron 4 mg disintegrat ing tablet 3-0 -18 00:00: 00 Yes [id number] 4mg Take 1 tablet by mouth every 8 (eight) hours as needed for Nausea and Vomiting (N/V). [facility] ondansetron 4 mg disintegrat ing tablet 12-17 00:00: 00 Yes [id number] 4mg Take 1 tablet by mouth every 8 (eight) hours as needed for Nausea and Vomiting (N/V). [facility] ondansetron 4 mg disintegrat ing tablet 12-17 00:00: 00 01-22 00:00 :00 No [id number] 4mg Take 1 tablet by mouth every 8 (eight) hours as needed for Nausea and Vomiting (N/V). [facility] ondansetron 4 mg disintegrat ing tablet 12-17 00:00: 00 01-22 00:00 :00 No [id number] 4mg Take 1 tablet by mouth every 8 (eight) hours as needed for Nausea and Vomiting (N/V). [facility] PACLitaxeL (TAXOL) 160.8 mg in NaCl 0.9% (NS) 250 mL IV infusion 12-10 17:00: 00 12-10 18:30 :00 No [id number] 80mg/m2 160.8 mg (80 mg/m2 ?2.01 m2 Treatment Plan BSA from Recorded weight), IV Infusion, ONCE, Administer over 60 Minutes, On Thu12/10/22 at 1100, For 1 dose
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 &nbs p;Administ er through a 0.22 micron in-line filter and nonsorbing administra tion set.
[facility] trastuzumab -qyyp (TRAZIMERA) 170 mg in NaCl 0.9% (NS) 250 mL infusion 12-10 16:00: 00 12-10 17:28 :00 No [id number] 2mg/kg 170 mg (rounded from 170.8 mg = 2 mg/kg ?85.4 kg Treatment plan Recorded weight), IV Infusion, ONCE, Administer over 60 Minutes, On Thu12/10/22 at 1000, For 1 dose
Sh ould be diluted in 0.9% Sodium Chloride only; DO NOT USE D5W. Diluted solutions may be stored in refrigerat or for up to 24 hours prior to use.
[facility] acetaminoph en (TYLENOL) tablet 650 mg 12-10 15:30: 00 12-10 15:45 :00 No [id number] 650mg 650 mg, Oral, ONCE, 1 dose, On Thu12/10/22 at 0930, Routine [facility] famotidine (PEPCID (PF)) injection 20 mg 12-10 15:30: 00 12-10 15:46 :00 No [id number] 20mg 20 mg, Slow IV Push, ONCE, 1 dose, On Thu12/10/22 at 0930, Routine [facility] diphenhydrA MINE (BENADRYL) injection 50 mg 12-10 15:30: 00 12-10 15:49 :00 No [id number] 50mg 50 mg, Slow IV Push, ONCE, 1 dose, On Thu12/10/22 at 0930, Routine [facility] dexamethaso ne sod phos PF injection 10 mg 12-10 15:30: 00 12-10 15:53 :00 No [id number] 10mg 10 mg, Slow IV Push, ONCE, 1 dose, On Thu12/10/22 at 0930, 1 mL [facility] proCHLORper azine (COMPAZINE) tablet 10 mg 12-10 15:25: 42 12-11 15:24 :42 No [id number] 10mg 10 mg, Oral, Q6HPRN, Starting on Thu12/10/22 at 0925, Until [place] 12/11/22 at 0924, Routine, Nausea and Vomiting (N/V) [facility] heparin lock flush (HEPARIN LOCKFLUSH(P ORCINE)(PF) ) 100 unit/mL injection 500 Units 12-10 15:25: 42 12-11 15:24 :42 No [id number] 500U 500 Units, IV Push, PRN, Starting on Thu12/10/22 at 0925, Until [place] 12/11/22 at 0924, Routine [facility] PACLitaxeL (TAXOL) 160.8 mg in NaCl 0.9% (NS) 250 mL IV infusion 12-04 18:15: 00 12-04 20:12 :00 No [id number] 80mg/m2 160.8 mg (80 mg/m2 ?2.01 m2 Treatment Plan BSA from Recorded weight), IV Infusion, ONCE, Administer over 60 Minutes, On [place] 12/04/22 at 1215, For 1 dose
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 &nbs p;Administ er through a 0.22 micron in-line filter and nonsorbing administra tion set.
[facility] trastuzumab -qyyp (TRAZIMERA) 340 mg in NaCl 0.9% (NS) 250 mL infusion 12-04 17:15: 00 12-04 18:55 :00 No [id number] 4mg/kg 340 mg (rounded from 341.6 mg = 4 mg/kg ?85.4 kg Treatment plan Recorded weight), IV Infusion, ONCE, Administer over 60 Minutes, On [place] 12/04/22 at 1115, For 1 dose
Sh ould be diluted in 0.9% Sodium Chloride only; DO NOT USE D5W. Diluted solutions may be stored in refrigerat or for up to 24 hours prior to use.
[facility] acetaminoph en (TYLENOL) tablet 650 mg 12-04 16:45: 00 12-04 16:48 :00 No [id number] 650mg 650 mg, Oral, ONCE, 1 dose, On [facility] 12/04/22 at 1045, Routine [facility] famotidine (PEPCID (PF)) injection 20 mg 12-04 16:45: 00 12-04 16:48 :00 No [id number] 20mg 20 mg, Slow IV Push, ONCE, 1 dose, On [place] 12/04/22 at 1045, Routine [facility] diphenhydrA MINE (BENADRYL) injection 50 mg 12-04 16:45: 00 12-04 16:58 :00 No [id number] 50mg 50 mg, Slow IV Push, ONCE, 1 dose, On [place] 12/04/22 at 1045, Routine [facility] dexamethaso ne sod phos PF injection 10 mg 12-04 16:45: 00 12-04 16:52 :00 No [id number] 10mg 10 mg, Slow IV Push, ONCE, 1 dose, On [place] 12/04/22 at 1045, 1 mL [facility] heparin lock flush (HEPARIN LOCKFLUSH(P ORCINE)(PF) ) 100 unit/mL injection 500 Units 12-04 16:33: 44 12-05 16:32 :44 No [id number] 500U 500 Units, IV Push, PRN, Starting on [place] 12/04/22 at 1033, Until Thu12/05/22 at 1032, Routine [facility] lactated ringers IV infusion 500 mL 2021-11 17:30: 00 Yes 500mL at 42 mL/hr, 500 mL, IV Infusion, CONTINUOUS , Starting on [place] 11/27/22 at 1130, Until Discontinu ed, Routine, PACU [facility] lactated ringers IV infusion 500 mL 2021-11 17:30: 00 11-27 20:17 :19 No 500mL at 42 mL/hr, 500 mL, IV Infusion, CONTINUOUS , Starting on [place] 11/27/22 at 1130, Until [place] 11/27/22 at 1417, Routine, PACU [facility] meperidine (DEMEROL) injection 12.5 mg 2021-11 17:28: 53 Yes 12.5mg 12.5 mg, Slow IV Push, PRN, 1 dose, Starting on [place] 11/27/22 at 1128, Until Discontinu ed, Routine, Shivering, PACU
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 : GUILLERMO WILKS [facility] ondansetron (ZOFRAN (PF)) injection 4 mg 2021-11 17:28: 53 11-27 20:17 :19 No 4mg 4 mg, Slow IV Push, PRN, 1 dose, Starting on [place] 11/27/22 at 1128, Until [place] 11/27/22 at 1417, Routine, Nausea and Vomiting (N/V), PACU [facility] simethicone (GAS RELIEF (SIMETHICON E)) 40 mg/0.6 mL drops 2021-11 17:05: 00 Yes PRN, Starting on [place] 11/27/22 at 1105, Until Discontinu ed, Routine, Intra-op [facility] simethicone (GAS RELIEF (SIMETHICON E)) 40 mg/0.6 mL drops 2021-11 17:05: 00 11-27 20:17 :19 No PRN, Starting on [place] 11/27/22 at 1105, Until [place] 11/27/22 at 1417, Routine, Intra-op [facility] PANTOPRAZOL E 40 mg EC tablet 2021-11 00:00: 00 Yes [id number] 40mg TAKE 1 TABLET BY MOUTH IN THE MORNING AND 1 TABLET IN THE EVENING. [facility] PANTOPRAZOL E 40 mg EC tablet 2021-11 00:00: 00 Yes [id number] 40mg TAKE 1 TABLET BY MOUTH IN THE MORNING AND 1 TABLET IN THE EVENING. [facility] PANTOPRAZOL E 40 mg EC tablet 2021-11 00:00: 00 Yes [id number] 40mg TAKE 1 TABLET BY MOUTH IN THE MORNING AND 1 TABLET IN THE EVENING. [facility] PANTOPRAZOL E 40 mg EC tablet 2021-11 00:00: 00 Yes [id number] 40mg TAKE 1 TABLET BY MOUTH IN THE MORNING AND 1 TABLET IN THE EVENING. [facility] PANTOPRAZOL E 40 mg EC tablet 2021-11 00:00: 00 Yes [id number] 40mg TAKE 1 TABLET BY MOUTH IN THE MORNING AND 1 TABLET IN THE EVENING. [facility] PANTOPRAZOL E 40 mg EC tablet 2021-11 00:00: 00 Yes [id number] 40mg TAKE 1 TABLET BY MOUTH IN THE MORNING AND 1 TABLET IN THE EVENING. [facility] PANTOPRAZOL E 40 mg EC tablet 2021-11 00:00: 00 Yes [id number] 40mg TAKE 1 TABLET BY MOUTH IN THE MORNING AND 1 TABLET IN THE EVENING. [facility] PANTOPRAZOL E 40 mg EC tablet 2021-11 00:00: 00 Yes [id number] 40mg TAKE 1 TABLET BY MOUTH IN THE MORNING AND 1 TABLET IN THE EVENING. [facility] PANTOPRAZOL E 40 mg EC tablet 2021-11 00:00: 00 Yes [id number] 40mg TAKE 1 TABLET BY MOUTH IN THE MORNING AND 1 TABLET IN THE EVENING. [facility] PANTOPRAZOL E 40 mg EC tablet 2021-11 00:00: 00 Yes [id number] 40mg TAKE 1 TABLET BY MOUTH IN THE MORNING AND 1 TABLET IN THE EVENING. [facility] PANTOPRAZOL E 40 mg EC tablet 2021-11 00:00: 00 Yes [id number] 40mg TAKE 1 TABLET BY MOUTH IN THE MORNING AND 1 TABLET IN THE EVENING. [facility] PANTOPRAZOL E 40 mg EC tablet 2021-11 00:00: 00 Yes [id number] 40mg TAKE 1 TABLET BY MOUTH IN THE MORNING AND 1 TABLET IN THE EVENING. [facility] PANTOPRAZOL E 40 mg EC tablet 2021-11 00:00: 00 Yes [id number] 40mg TAKE 1 TABLET BY MOUTH IN THE MORNING AND 1 TABLET IN THE EVENING. [facility] PANTOPRAZOL E 40 mg EC tablet 2021-11 00:00: 00 Yes [id number] 40mg TAKE 1 TABLET BY MOUTH IN THE MORNING AND 1 TABLET IN THE EVENING. [facility] PANTOPRAZOL E 40 mg EC tablet 2021-11 00:00: 00 Yes [id number] 40mg TAKE 1 TABLET BY MOUTH IN THE MORNING AND 1 TABLET IN THE EVENING. [facility] PANTOPRAZOL E 40 mg EC tablet 2021-11 00:00: 00 Yes [id number] 40mg TAKE 1 TABLET BY MOUTH IN THE MORNING AND 1 TABLET IN THE EVENING. [facility] PANTOPRAZOL E 40 mg EC tablet 2021-11 00:00: 00 Yes [id number] 40mg TAKE 1 TABLET BY MOUTH IN THE MORNING AND 1 TABLET IN THE EVENING. [facility] PANTOPRAZOL E 40 mg EC tablet 2021-11 00:00: 00 Yes [id number] 40mg TAKE 1 TABLET BY MOUTH IN THE MORNING AND 1 TABLET IN THE EVENING. [facility] PANTOPRAZOL E 40 mg EC tablet 2021-11 00:00: 00 Yes [id number] 40mg TAKE 1 TABLET BY MOUTH IN THE MORNING AND 1 TABLET IN THE EVENING. [facility] PANTOPRAZOL E 40 mg EC tablet 2021-11 00:00: 00 Yes [id number] 40mg TAKE 1 TABLET BY MOUTH IN THE MORNING AND 1 TABLET IN THE EVENING. [facility] PANTOPRAZOL E 40 mg EC tablet 2021-11 00:00: 00 Yes [id number] 40mg TAKE 1 TABLET BY MOUTH IN THE MORNING AND 1 TABLET IN THE EVENING. [facility] PANTOPRAZOL E 40 mg EC tablet 2021-11 00:00: 00 Yes [id number] 40mg TAKE 1 TABLET BY MOUTH IN THE MORNING AND 1 TABLET IN THE EVENING. [facility] PANTOPRAZOL E 40 mg EC tablet 2021-11 00:00: 00 Yes [id number] 40mg TAKE 1 TABLET BY MOUTH IN THE MORNING AND 1 TABLET IN THE EVENING. [facility] PANTOPRAZOL E 40 mg EC tablet 2021-11 00:00: 00 Yes [id number] 40mg TAKE 1 TABLET BY MOUTH IN THE MORNING AND 1 TABLET IN THE EVENING. [facility] PANTOPRAZOL E 40 mg EC tablet 2021-11 00:00: 00 Yes [id number] 40mg TAKE 1 TABLET BY MOUTH IN THE MORNING AND 1 TABLET IN THE EVENING. [facility] PANTOPRAZOL E 40 mg EC tablet 2021-11 00:00: 00 Yes [id number] 40mg TAKE 1 TABLET BY MOUTH IN THE MORNING AND 1 TABLET IN THE EVENING. [facility] PANTOPRAZOL E 40 mg EC tablet 2021-11 00:00: 00 Yes [id number] 40mg TAKE 1 TABLET BY MOUTH IN THE MORNING AND 1 TABLET IN THE EVENING. [facility] PANTOPRAZOL E 40 mg EC tablet 2021-11 00:00: 00 Yes [id number] 40mg TAKE 1 TABLET BY MOUTH IN THE MORNING AND 1 TABLET IN THE EVENING. [facility] PANTOPRAZOL E 40 mg EC tablet 2021-11 00:00: 00 Yes [id number] 40mg TAKE 1 TABLET BY MOUTH IN THE MORNING AND 1 TABLET IN THE EVENING. [facility] PANTOPRAZOL E 40 mg EC tablet 2021-11 00:00: 00 Yes [id number] 40mg TAKE 1 TABLET BY MOUTH IN THE MORNING AND 1 TABLET IN THE EVENING. [facility] PANTOPRAZOL E 40 mg EC tablet 2021-11 00:00: 00 Yes [id number] 40mg TAKE 1 TABLET BY MOUTH IN THE MORNING AND 1 TABLET IN THE EVENING. [facility] PANTOPRAZOL E 40 mg EC tablet 2021-11 00:00: 00 Yes [id number] 40mg TAKE 1 TABLET BY MOUTH IN THE MORNING AND 1 TABLET IN THE EVENING. [facility] PANTOPRAZOL E 40 mg EC tablet 2021-11 00:00: 00 Yes [id number] 40mg TAKE 1 TABLET BY MOUTH IN THE MORNING AND 1 TABLET IN THE EVENING. [facility] PANTOPRAZOL E 40 mg EC tablet 2021-11 00:00: 00 Yes [id number] 40mg TAKE 1 TABLET BY MOUTH IN THE MORNING AND 1 TABLET IN THE EVENING. [facility] PANTOPRAZOL E 40 mg EC tablet 2021-11 00:00: 00 Yes [id number] 40mg TAKE 1 TABLET BY MOUTH IN THE MORNING AND 1 TABLET IN THE EVENING. [facility] PANTOPRAZOL E 40 mg EC tablet 2021-11 00:00: 00 Yes [id number] 40mg TAKE 1 TABLET BY MOUTH IN THE MORNING AND 1 TABLET IN THE EVENING. [facility] PANTOPRAZOL E 40 mg EC tablet 2021-11 00:00: 00 Yes [id number] 40mg TAKE 1 TABLET BY MOUTH IN THE MORNING AND 1 TABLET IN THE EVENING. [facility] PANTOPRAZOL E 40 mg EC tablet 2021-11 00:00: 00 Yes [id number] 40mg TAKE 1 TABLET BY MOUTH IN THE MORNING AND 1 TABLET IN THE EVENING. [facility] PANTOPRAZOL E 40 mg EC tablet 2021-11 00:00: 00 Yes [id number] 40mg TAKE 1 TABLET BY MOUTH IN THE MORNING AND 1 TABLET IN THE EVENING. [facility] PANTOPRAZOL E 40 mg EC tablet 2021-11 00:00: 00 Yes [id number] 40mg TAKE 1 TABLET BY MOUTH IN THE MORNING AND 1 TABLET IN THE EVENING. [facility] PANTOPRAZOL E 40 mg EC tablet 2021-11 00:00: 00 Yes [id number] 40mg TAKE 1 TABLET BY MOUTH IN THE MORNING AND 1 TABLET IN THE EVENING. [facility] PANTOPRAZOL E 40 mg EC tablet 2021-11 00:00: 00 Yes [id number] 40mg TAKE 1 TABLET BY MOUTH IN THE MORNING AND 1 TABLET IN THE EVENING. [facility] PANTOPRAZOL E 40 mg EC tablet 2021-11 00:00: 00 Yes [id number] 40mg TAKE 1 TABLET BY MOUTH IN THE MORNING AND 1 TABLET IN THE EVENING. [facility] PANTOPRAZOL E 40 mg EC tablet 2021-11 00:00: 00 Yes [id number] 40mg TAKE 1 TABLET BY MOUTH IN THE MORNING AND 1 TABLET IN THE EVENING. [facility] PANTOPRAZOL E 40 mg EC tablet 2021-11 00:00: 00 Yes [id number] 40mg TAKE 1 TABLET BY MOUTH IN THE MORNING AND 1 TABLET IN THE EVENING. [facility] PANTOPRAZOL E 40 mg EC tablet 2021-11 00:00: 00 Yes [id number] 40mg TAKE 1 TABLET BY MOUTH IN THE MORNING AND 1 TABLET IN THE EVENING. [facility] PANTOPRAZOL E 40 mg EC tablet 2021-11 00:00: 00 Yes [id number] 40mg TAKE 1 TABLET BY MOUTH IN THE MORNING AND 1 TABLET IN THE EVENING. [facility] PANTOPRAZOL E 40 mg EC tablet 2021-11 00:00: 00 Yes [id number] 40mg TAKE 1 TABLET BY MOUTH IN THE MORNING AND 1 TABLET IN THE EVENING. [facility] PANTOPRAZOL E 40 mg EC tablet 2021-11 00:00: 00 Yes [id number] 40mg TAKE 1 TABLET BY MOUTH IN THE MORNING AND 1 TABLET IN THE EVENING. [facility] PANTOPRAZOL E 40 mg EC tablet 2021-11 00:00: 00 Yes [id number] 40mg TAKE 1 TABLET BY MOUTH IN THE MORNING AND 1 TABLET IN THE EVENING. [facility] PANTOPRAZOL E 40 mg EC tablet 2021-11 00:00: 00 Yes [id number] 40mg TAKE 1 TABLET BY MOUTH IN THE MORNING AND 1 TABLET IN THE EVENING. [facility] PANTOPRAZOL E 40 mg EC tablet 2021-11 00:00: 00 Yes [id number] 40mg TAKE 1 TABLET BY MOUTH IN THE MORNING AND 1 TABLET IN THE EVENING. [facility] PANTOPRAZOL E 40 mg EC tablet 2021-11 00:00: 00 Yes [id number] 40mg TAKE 1 TABLET BY MOUTH IN THE MORNING AND 1 TABLET IN THE EVENING. [facility] PANTOPRAZOL E 40 mg EC tablet 2021-11 00:00: 00 Yes [id number] 40mg TAKE 1 TABLET BY MOUTH IN THE MORNING AND 1 TABLET IN THE EVENING. [facility] PANTOPRAZOL E 40 mg EC tablet 2021-11 00:00: 00 Yes [id number] 40mg TAKE 1 TABLET BY MOUTH IN THE MORNING AND 1 TABLET IN THE EVENING. [facility] PANTOPRAZOL E 40 mg EC tablet 2021-11 00:00: 00 Yes [id number] 40mg TAKE 1 TABLET BY MOUTH IN THE MORNING AND 1 TABLET IN THE EVENING. [facility] PANTOPRAZOL E 40 mg EC tablet 2021-11 00:00: 00 Yes [id number] 40mg TAKE 1 TABLET BY MOUTH IN THE MORNING AND 1 TABLET IN THE EVENING. [facility] PANTOPRAZOL E 40 mg EC tablet 2021-11 00:00: 00 Yes [id number] 40mg TAKE 1 TABLET BY MOUTH IN THE MORNING AND 1 TABLET IN THE EVENING. [facility] PANTOPRAZOL E 40 mg EC tablet 2021-11 00:00: 00 Yes [id number] 40mg TAKE 1 TABLET BY MOUTH IN THE MORNING AND 1 TABLET IN THE EVENING. [facility] PANTOPRAZOL E 40 mg EC tablet 2021-11 00:00: 00 Yes [id number] 40mg TAKE 1 TABLET BY MOUTH IN THE MORNING AND 1 TABLET IN THE EVENING. [facility] PANTOPRAZOL E 40 mg EC tablet 2021-11 00:00: 00 Yes [id number] 40mg TAKE 1 TABLET BY MOUTH IN THE MORNING AND 1 TABLET IN THE EVENING. [facility] PANTOPRAZOL E 40 mg EC tablet 2021-11 00:00: 00 Yes [id number] 40mg TAKE 1 TABLET BY MOUTH IN THE MORNING AND 1 TABLET IN THE EVENING. [facility] PANTOPRAZOL E 40 mg EC tablet 2021-11 00:00: 00 Yes [id number] 40mg TAKE 1 TABLET BY MOUTH IN THE MORNING AND 1 TABLET IN THE EVENING. [facility] PANTOPRAZOL E 40 mg EC tablet 2021-11 00:00: 00 Yes [id number] 40mg TAKE 1 TABLET BY MOUTH IN THE MORNING AND 1 TABLET IN THE EVENING. [facility] PANTOPRAZOL E 40 mg EC tablet 2021-11 00:00: 00 Yes [id number] 40mg TAKE 1 TABLET BY MOUTH IN THE MORNING AND 1 TABLET IN THE EVENING. [facility] PANTOPRAZOL E 40 mg EC tablet 2021-11 00:00: 00 Yes [id number] 40mg TAKE 1 TABLET BY MOUTH IN THE MORNING AND 1 TABLET IN THE EVENING. [facility] PANTOPRAZOL E 40 mg EC tablet 2021-11 00:00: 00 Yes [id number] 40mg TAKE 1 TABLET BY MOUTH IN THE MORNING AND 1 TABLET IN THE EVENING. [facility] PANTOPRAZOL E 40 mg EC tablet 2021-11 00:00: 00 Yes [id number] 40mg TAKE 1 TABLET BY MOUTH IN THE MORNING AND 1 TABLET IN THE EVENING. [facility] PANTOPRAZOL E 40 mg EC tablet 2021-11 00:00: 00 Yes [id number] 40mg TAKE 1 TABLET BY MOUTH IN THE MORNING AND 1 TABLET IN THE EVENING. [facility] PANTOPRAZOL E 40 mg EC tablet 2021-11 00:00: 00 Yes [id number] 40mg TAKE 1 TABLET BY MOUTH IN THE MORNING AND 1 TABLET IN THE EVENING. [facility] PANTOPRAZOL E 40 mg EC tablet 2021-11 00:00: 00 Yes [id number] 40mg TAKE 1 TABLET BY MOUTH IN THE MORNING AND 1 TABLET IN THE EVENING. [facility] PANTOPRAZOL E 40 mg EC tablet 2021-11 00:00: 00 Yes [id number] 40mg TAKE 1 TABLET BY MOUTH IN THE MORNING AND 1 TABLET IN THE EVENING. [facility] PANTOPRAZOL E 40 mg EC tablet 2021-11 00:00: 00 Yes [id number] 40mg TAKE 1 TABLET BY MOUTH IN THE MORNING AND 1 TABLET IN THE EVENING. [facility] PANTOPRAZOL E 40 mg EC tablet 2021-11 00:00: 00 Yes [id number] 40mg TAKE 1 TABLET BY MOUTH IN THE MORNING AND 1 TABLET IN THE EVENING. [facility] PANTOPRAZOL E 40 mg EC tablet 2021-11 00:00: 00 Yes [id number] 40mg TAKE 1 TABLET BY MOUTH IN THE MORNING AND 1 TABLET IN THE EVENING. [facility] PANTOPRAZOL E 40 mg EC tablet 2021-11 00:00: 00 Yes [id number] 40mg TAKE 1 TABLET BY MOUTH IN THE MORNING AND 1 TABLET IN THE EVENING. [facility] PANTOPRAZOL E 40 mg EC tablet 2021-11 00:00: 00 Yes [id number] 40mg TAKE 1 TABLET BY MOUTH IN THE MORNING AND 1 TABLET IN THE EVENING. [facility] PANTOPRAZOL E 40 mg EC tablet 2021-11 00:00: 00 Yes [id number] 40mg TAKE 1 TABLET BY MOUTH IN THE MORNING AND 1 TABLET IN THE EVENING. [facility] PANTOPRAZOL E 40 mg EC tablet 2021-11 00:00: 00 Yes [id number] 40mg TAKE 1 TABLET BY MOUTH IN THE MORNING AND 1 TABLET IN THE EVENING. [facility] PANTOPRAZOL E 40 mg EC tablet 2021-11 00:00: 00 Yes [id number] 40mg TAKE 1 TABLET BY MOUTH IN THE MORNING AND 1 TABLET IN THE EVENING. [facility] PANTOPRAZOL E 40 mg EC tablet 2021-11 00:00: 00 Yes [id number] 40mg TAKE 1 TABLET BY MOUTH IN THE MORNING AND 1 TABLET IN THE EVENING. [facility] PANTOPRAZOL E 40 mg EC tablet 2021-11 00:00: 00 Yes [id number] 40mg TAKE 1 TABLET BY MOUTH IN THE MORNING AND 1 TABLET IN THE EVENING. [facility] PANTOPRAZOL E 40 mg EC tablet 2021-11 00:00: 00 Yes [id number] 40mg TAKE 1 TABLET BY MOUTH IN THE MORNING AND 1 TABLET IN THE EVENING. [facility] PANTOPRAZOL E 40 mg EC tablet 2021-11 00:00: 00 Yes [id number] 40mg TAKE 1 TABLET BY MOUTH IN THE MORNING AND 1 TABLET IN THE EVENING. [facility] PANTOPRAZOL E 40 mg EC tablet 2021-11 00:00: 00 Yes [id number] 40mg TAKE 1 TABLET BY MOUTH IN THE MORNING AND 1 TABLET IN THE EVENING. [facility] PANTOPRAZOL E 40 mg EC tablet 2021-11 00:00: 00 Yes [id number] 40mg TAKE 1 TABLET BY MOUTH IN THE MORNING AND 1 TABLET IN THE EVENING. [facility] PANTOPRAZOL E 40 mg EC tablet 2021-11 00:00: 00 Yes [id number] 40mg TAKE 1 TABLET BY MOUTH IN THE MORNING AND 1 TABLET IN THE EVENING. [facility] PANTOPRAZOL E 40 mg EC tablet 2021-11 00:00: 00 Yes [id number] 40mg TAKE 1 TABLET BY MOUTH IN THE MORNING AND 1 TABLET IN THE EVENING. [facility] PANTOPRAZOL E 40 mg EC tablet 2021-11 00:00: 00 Yes [id number] 40mg TAKE 1 TABLET BY MOUTH IN THE MORNING AND 1 TABLET IN THE EVENING. [facility] PANTOPRAZOL E 40 mg EC tablet 2021-11 00:00: 00 Yes [id number] 40mg TAKE 1 TABLET BY MOUTH IN THE MORNING AND 1 TABLET IN THE EVENING. [facility] PANTOPRAZOL E 40 mg EC tablet 2021-11 00:00: 00 Yes [id number] 40mg TAKE 1 TABLET BY MOUTH IN THE MORNING AND 1 TABLET IN THE EVENING. [facility] PANTOPRAZOL E 40 mg EC tablet 2021-11 00:00: 00 Yes [id number] 40mg TAKE 1 TABLET BY MOUTH IN THE MORNING AND 1 TABLET IN THE EVENING. [facility] PANTOPRAZOL E 40 mg EC tablet 2021-11 00:00: 00 Yes [id number] 40mg TAKE 1 TABLET BY MOUTH IN THE MORNING AND 1 TABLET IN THE EVENING. [facility] PANTOPRAZOL E 40 mg EC tablet 2021-11 00:00: 00 Yes [id number] 40mg TAKE 1 TABLET BY MOUTH IN THE MORNING AND 1 TABLET IN THE EVENING. [facility] PANTOPRAZOL E 40 mg EC tablet 2021-11 00:00: 00 Yes [id number] 40mg TAKE 1 TABLET BY MOUTH IN THE MORNING AND 1 TABLET IN THE EVENING. [facility] PANTOPRAZOL E 40 mg EC tablet 2021-11 00:00: 00 Yes [id number] 40mg TAKE 1 TABLET BY MOUTH IN THE MORNING AND 1 TABLET IN THE EVENING. [facility] PANTOPRAZOL E 40 mg EC tablet 2021-11 00:00: 00 Yes [id number] 40mg TAKE 1 TABLET BY MOUTH IN THE MORNING AND 1 TABLET IN THE EVENING. [facility] PANTOPRAZOL E 40 mg EC tablet 2021-11 00:00: 00 Yes [id number] 40mg TAKE 1 TABLET BY MOUTH IN THE MORNING AND 1 TABLET IN THE EVENING. [facility] PANTOPRAZOL E 40 mg EC tablet 2021-11 00:00: 00 Yes [id number] 40mg TAKE 1 TABLET BY MOUTH IN THE MORNING AND 1 TABLET IN THE EVENING. [facility] PANTOPRAZOL E 40 mg EC tablet 2021-11 00:00: 00 Yes [id number] 40mg TAKE 1 TABLET BY MOUTH IN THE MORNING AND 1 TABLET IN THE EVENING. [facility] PANTOPRAZOL E 40 mg EC tablet 2021-11 00:00: 00 Yes [id number] 40mg TAKE 1 TABLET BY MOUTH IN THE MORNING AND 1 TABLET IN THE EVENING. [facility] PANTOPRAZOL E 40 mg EC tablet 2021-11 00:00: 00 Yes [id number] 40mg TAKE 1 TABLET BY MOUTH IN THE MORNING AND 1 TABLET IN THE EVENING. [facility] PANTOPRAZOL E 40 mg EC tablet 2021-11 00:00: 00 Yes [id number] 40mg TAKE 1 TABLET BY MOUTH IN THE MORNING AND 1 TABLET IN THE EVENING. [facility] PANTOPRAZOL E 40 mg EC tablet 2021-11 00:00: 00 Yes [id number] 40mg TAKE 1 TABLET BY MOUTH IN THE MORNING AND 1 TABLET IN THE EVENING. [facility] PANTOPRAZOL E 40 mg EC tablet 2021-11 00:00: 00 Yes [id number] 40mg TAKE 1 TABLET BY MOUTH IN THE MORNING AND 1 TABLET IN THE EVENING. [facility] PANTOPRAZOL E 40 mg EC tablet 2021-11 00:00: 00 Yes [id number] 40mg TAKE 1 TABLET BY MOUTH IN THE MORNING AND 1 TABLET IN THE EVENING. [facility] PANTOPRAZOL E 40 mg EC tablet 2021-11 00:00: 00 Yes [id number] 40mg TAKE 1 TABLET BY MOUTH IN THE MORNING AND 1 TABLET IN THE EVENING. [facility] PANTOPRAZOL E 40 mg EC tablet 2021-11 00:00: 00 Yes [id number] 40mg TAKE 1 TABLET BY MOUTH IN THE MORNING AND 1 TABLET IN THE EVENING. [facility] PANTOPRAZOL E 40 mg EC tablet 2021-11 00:00: 00 Yes [id number] 40mg TAKE 1 TABLET BY MOUTH IN THE MORNING AND 1 TABLET IN THE EVENING. [facility] PANTOPRAZOL E 40 mg EC tablet 2021-11 00:00: 00 Yes [id number] 40mg TAKE 1 TABLET BY MOUTH IN THE MORNING AND 1 TABLET IN THE EVENING. [facility] PANTOPRAZOL E 40 mg EC tablet 2021-11 00:00: 00 Yes [id number] 40mg TAKE 1 TABLET BY MOUTH IN THE MORNING AND 1 TABLET IN THE EVENING. [facility] PANTOPRAZOL E 40 mg EC tablet 2021-11 00:00: 00 Yes [id number] 40mg TAKE 1 TABLET BY MOUTH IN THE MORNING AND 1 TABLET IN THE EVENING. [facility] PANTOPRAZOL E 40 mg EC tablet 2021-11 00:00: 00 Yes [id number] 40mg TAKE 1 TABLET BY MOUTH IN THE MORNING AND 1 TABLET IN THE EVENING. [facility] PANTOPRAZOL E 40 mg EC tablet 2021-11 00:00: 00 Yes [id number] 40mg TAKE 1 TABLET BY MOUTH IN THE MORNING AND 1 TABLET IN THE EVENING. [facility] PANTOPRAZOL E 40 mg EC tablet 2021-11 00:00: 00 Yes [id number] 40mg TAKE 1 TABLET BY MOUTH IN THE MORNING AND 1 TABLET IN THE EVENING. [facility] PANTOPRAZOL E 40 mg EC tablet 2021-11 00:00: 00 Yes [id number] 40mg TAKE 1 TABLET BY MOUTH IN THE MORNING AND 1 TABLET IN THE EVENING. [facility] PANTOPRAZOL E 40 mg EC tablet 2021-11 00:00: 00 Yes [id number] 40mg TAKE 1 TABLET BY MOUTH IN THE MORNING AND 1 TABLET IN THE EVENING. [facility] PANTOPRAZOL E 40 mg EC tablet 2021-11 00:00: 00 Yes [id number] 40mg TAKE 1 TABLET BY MOUTH IN THE MORNING AND 1 TABLET IN THE EVENING. [facility] PANTOPRAZOL E 40 mg EC tablet 2021-11 00:00: 00 Yes [id number] 40mg TAKE 1 TABLET BY MOUTH IN THE MORNING AND 1 TABLET IN THE EVENING. [facility] PANTOPRAZOL E 40 mg EC tablet 2021-11 00:00: 00 Yes [id number] 40mg TAKE 1 TABLET BY MOUTH IN THE MORNING AND 1 TABLET IN THE EVENING. [facility] PANTOPRAZOL E 40 mg EC tablet 2021-11 00:00: 00 Yes [id number] 40mg TAKE 1 TABLET BY MOUTH IN THE MORNING AND 1 TABLET IN THE EVENING. [facility] PANTOPRAZOL E 40 mg EC tablet 2021-11 00:00: 00 Yes [id number] 40mg TAKE 1 TABLET BY MOUTH IN THE MORNING AND 1 TABLET IN THE EVENING. [facility] PANTOPRAZOL E 40 mg EC tablet 2021-11 00:00: 00 Yes [id number] 40mg TAKE 1 TABLET BY MOUTH IN THE MORNING AND 1 TABLET IN THE EVENING. [facility] PANTOPRAZOL E 40 mg EC tablet 2021-11 00:00: 00 Yes [id number] 40mg TAKE 1 TABLET BY MOUTH IN THE MORNING AND 1 TABLET IN THE EVENING. [facility] PANTOPRAZOL E 40 mg EC tablet 2021-11 00:00: 00 Yes [id number] 40mg TAKE 1 TABLET BY MOUTH IN THE MORNING AND 1 TABLET IN THE EVENING. [facility] PANTOPRAZOL E 40 mg EC tablet 2021-11 00:00: 00 Yes [id number] 40mg TAKE 1 TABLET BY MOUTH IN THE MORNING AND 1 TABLET IN THE EVENING. [facility] PANTOPRAZOL E 40 mg EC tablet 2021-11 00:00: 00 Yes [id number] 40mg TAKE 1 TABLET BY MOUTH IN THE MORNING AND 1 TABLET IN THE EVENING. [facility] PANTOPRAZOL E 40 mg EC tablet 2021-11 00:00: 00 Yes [id number] 40mg TAKE 1 TABLET BY MOUTH IN THE MORNING AND 1 TABLET IN THE EVENING. [facility] PANTOPRAZOL E 40 mg EC tablet 2021-11 00:00: 00 Yes [id number] 40mg TAKE 1 TABLET BY MOUTH IN THE MORNING AND 1 TABLET IN THE EVENING. [facility] PANTOPRAZOL E 40 mg EC tablet 2021-11 00:00: 00 Yes [id number] 40mg TAKE 1 TABLET BY MOUTH IN THE MORNING AND 1 TABLET IN THE EVENING. [facility] PANTOPRAZOL E 40 mg EC tablet 2021-11 00:00: 00 Yes [id number] 40mg TAKE 1 TABLET BY MOUTH IN THE MORNING AND 1 TABLET IN THE EVENING. [facility] PANTOPRAZOL E 40 mg EC tablet 2021-11 00:00: 00 Yes [id number] 40mg TAKE 1 TABLET BY MOUTH IN THE MORNING AND 1 TABLET IN THE EVENING. [facility] PANTOPRAZOL E 40 mg EC tablet 2021-11 00:00: 00 Yes [id number] 40mg TAKE 1 TABLET BY MOUTH IN THE MORNING AND 1 TABLET IN THE EVENING. [facility] PANTOPRAZOL E 40 mg EC tablet 2021-11 00:00: 00 Yes [id number] 40mg TAKE 1 TABLET BY MOUTH IN THE MORNING AND 1 TABLET IN THE EVENING. [facility] PANTOPRAZOL E 40 mg EC tablet 2021-11 00:00: 00 Yes [id number] 40mg TAKE 1 TABLET BY MOUTH IN THE MORNING AND 1 TABLET IN THE EVENING. [facility] PANTOPRAZOL E 40 mg EC tablet 2021-11 00:00: 00 Yes [id number] 40mg TAKE 1 TABLET BY MOUTH IN THE MORNING AND 1 TABLET IN THE EVENING. [facility] PANTOPRAZOL E 40 mg EC tablet 2021-11 00:00: 00 Yes [id number] 40mg TAKE 1 TABLET BY MOUTH IN THE MORNING AND 1 TABLET IN THE EVENING. [facility] PANTOPRAZOL E 40 mg EC tablet 2021-11 00:00: 00 Yes [id number] 40mg TAKE 1 TABLET BY MOUTH IN THE MORNING AND 1 TABLET IN THE EVENING. [facility] PANTOPRAZOL E 40 mg EC tablet 2021-11 00:00: 00 Yes [id number] 40mg TAKE 1 TABLET BY MOUTH IN THE MORNING AND 1 TABLET IN THE EVENING. [facility] PANTOPRAZOL E 40 mg EC tablet 2021-11 00:00: 00 Yes [id number] 40mg TAKE 1 TABLET BY MOUTH IN THE MORNING AND 1 TABLET IN THE EVENING. [facility] PANTOPRAZOL E 40 mg EC tablet 2021-11 00:00: 00 Yes [id number] 40mg TAKE 1 TABLET BY MOUTH IN THE MORNING AND 1 TABLET IN THE EVENING. [facility] PANTOPRAZOL E 40 mg EC tablet 2021-11 00:00: 00 Yes [id number] 40mg TAKE 1 TABLET BY MOUTH IN THE MORNING AND 1 TABLET IN THE EVENING. [facility] PANTOPRAZOL E 40 mg EC tablet 2021-11 00:00: 00 Yes [id number] 40mg TAKE 1 TABLET BY MOUTH IN THE MORNING AND 1 TABLET IN THE EVENING. [facility] PANTOPRAZOL E 40 mg EC tablet 2021-11 00:00: 00 Yes [id number] 40mg TAKE 1 TABLET BY MOUTH IN THE MORNING AND 1 TABLET IN THE EVENING. [facility] PANTOPRAZOL E 40 mg EC tablet 2021-11 00:00: 00 Yes [id number] 40mg TAKE 1 TABLET BY MOUTH IN THE MORNING AND 1 TABLET IN THE EVENING. [facility] PANTOPRAZOL E 40 mg EC tablet 2021-11 00:00: 00 Yes [id number] 40mg TAKE 1 TABLET BY MOUTH IN THE MORNING AND 1 TABLET IN THE EVENING. [facility] PANTOPRAZOL E 40 mg EC tablet 2021-11 00:00: 00 Yes [id number] 40mg TAKE 1 TABLET BY MOUTH IN THE MORNING AND 1 TABLET IN THE EVENING. [facility] PANTOPRAZOL E 40 mg EC tablet 2021-11 00:00: 00 Yes [id number] 40mg TAKE 1 TABLET BY MOUTH IN THE MORNING AND 1 TABLET IN THE EVENING. [facility] PANTOPRAZOL E 40 mg EC tablet 2021-11 00:00: 00 Yes [id number] 40mg TAKE 1 TABLET BY MOUTH IN THE MORNING AND 1 TABLET IN THE EVENING. [facility] PANTOPRAZOL E 40 mg EC tablet 2021-11 00:00: 00 Yes [id number] 40mg TAKE 1 TABLET BY MOUTH IN THE MORNING AND 1 TABLET IN THE EVENING. [facility] PANTOPRAZOL E 40 mg EC tablet 2021-11 00:00: 00 Yes [id number] 40mg TAKE 1 TABLET BY MOUTH IN THE MORNING AND 1 TABLET IN THE EVENING. [facility] PANTOPRAZOL E 40 mg EC tablet 2021-11 00:00: 00 Yes [id number] 40mg TAKE 1 TABLET BY MOUTH IN THE MORNING AND 1 TABLET IN THE EVENING. [facility] PANTOPRAZOL E 40 mg EC tablet 2021-11 00:00: 00 Yes [id number] 40mg TAKE 1 TABLET BY MOUTH IN THE MORNING AND 1 TABLET IN THE EVENING. [facility] PANTOPRAZOL E 40 mg EC tablet 2021-11 00:00: 00 Yes [id number] 40mg TAKE 1 TABLET BY MOUTH IN THE MORNING AND 1 TABLET IN THE EVENING. [facility] PANTOPRAZOL E 40 mg EC tablet 2021-11 00:00: 00 Yes [id number] 40mg TAKE 1 TABLET BY MOUTH IN THE MORNING AND 1 TABLET IN THE EVENING. [facility] PANTOPRAZOL E 40 mg EC tablet 2021-11 00:00: 00 Yes [id number] 40mg TAKE 1 TABLET BY MOUTH IN THE MORNING AND 1 TABLET IN THE EVENING. [facility] PANTOPRAZOL E 40 mg EC tablet 2021-11 00:00: 00 Yes [id number] 40mg TAKE 1 TABLET BY MOUTH IN THE MORNING AND 1 TABLET IN THE EVENING. [facility] PANTOPRAZOL E 40 mg EC tablet 2021-11 00:00: 00 Yes [id number] 40mg TAKE 1 TABLET BY MOUTH IN THE MORNING AND 1 TABLET IN THE EVENING. [facility] PANTOPRAZOL E 40 mg EC tablet 2021-11 00:00: 00 Yes [id number] 40mg TAKE 1 TABLET BY MOUTH IN THE MORNING AND 1 TABLET IN THE EVENING. [facility] PANTOPRAZOL E 40 mg EC tablet 2021-11 00:00: 00 Yes [id number] 40mg TAKE 1 TABLET BY MOUTH IN THE MORNING AND 1 TABLET IN THE EVENING. [facility] PANTOPRAZOL E 40 mg EC tablet 2021-11 00:00: 00 Yes [id number] 40mg TAKE 1 TABLET BY MOUTH IN THE MORNING AND 1 TABLET IN THE EVENING. [facility] PANTOPRAZOL E 40 mg EC tablet 2021-11 00:00: 00 Yes [id number] 40mg TAKE 1 TABLET BY MOUTH IN THE MORNING AND 1 TABLET IN THE EVENING. [facility] PANTOPRAZOL E 40 mg EC tablet 2021-11 00:00: 00 Yes [id number] 40mg TAKE 1 TABLET BY MOUTH IN THE MORNING AND 1 TABLET IN THE EVENING. [facility] PANTOPRAZOL E 40 mg EC tablet 2021-11 00:00: 00 Yes [id number] 40mg TAKE 1 TABLET BY MOUTH IN THE MORNING AND 1 TABLET IN THE EVENING. [facility] PANTOPRAZOL E 40 mg EC tablet 2021-11 00:00: 00 Yes [id number] 40mg TAKE 1 TABLET BY MOUTH IN THE MORNING AND 1 TABLET IN THE EVENING. [facility] PANTOPRAZOL E 40 mg EC tablet 2021-11 00:00: 00 Yes [id number] 40mg TAKE 1 TABLET BY MOUTH IN THE MORNING AND 1 TABLET IN THE EVENING. [facility] PANTOPRAZOL E 40 mg EC tablet 2021-11 00:00: 00 Yes [id number] 40mg TAKE 1 TABLET BY MOUTH IN THE MORNING AND 1 TABLET IN THE EVENING. [facility] PANTOPRAZOL E 40 mg EC tablet 2021-11 00:00: 00 Yes [id number] 40mg TAKE 1 TABLET BY MOUTH IN THE MORNING AND 1 TABLET IN THE EVENING. [facility] PANTOPRAZOL E 40 mg EC tablet 2021-11 00:00: 00 Yes [id number] 40mg TAKE 1 TABLET BY MOUTH IN THE MORNING AND 1 TABLET IN THE EVENING. [facility] PANTOPRAZOL E 40 mg EC tablet 2021-11 00:00: 00 Yes [id number] 40mg TAKE 1 TABLET BY MOUTH IN THE MORNING AND 1 TABLET IN THE EVENING. [facility] PANTOPRAZOL E 40 mg EC tablet 2021-11 00:00: 00 Yes [id number] 40mg TAKE 1 TABLET BY MOUTH IN THE MORNING AND 1 TABLET IN THE EVENING. [facility] PANTOPRAZOL E 40 mg EC tablet 2021-11 00:00: 00 Yes [id number] 40mg TAKE 1 TABLET BY MOUTH IN THE MORNING AND 1 TABLET IN THE EVENING. [facility] PANTOPRAZOL E 40 mg EC tablet 2021-11 00:00: 00 Yes [id number] 40mg TAKE 1 TABLET BY MOUTH IN THE MORNING AND 1 TABLET IN THE EVENING. [facility] PANTOPRAZOL E 40 mg EC tablet 2021-11 00:00: 00 Yes [id number] 40mg TAKE 1 TABLET BY MOUTH IN THE MORNING AND 1 TABLET IN THE EVENING. [facility] PANTOPRAZOL E 40 mg EC tablet 2021-11 00:00: 00 Yes [id number] 40mg TAKE 1 TABLET BY MOUTH IN THE MORNING AND 1 TABLET IN THE EVENING. [facility] peg-electro lyte soln 236-22.74-6 .74 -5.86 gram solution 2021-11 00:00: 00 Yes [id number] Take as directed before colonoscop y [facility] peg-electro lyte soln 236-22.74-6 .74 -5.86 gram solution 2021-11 00:00: 00 Yes [id number] Take as directed before colonoscop y [facility] peg-electro lyte soln 236-22.74-6 .74 -5.86 gram solution 2021-11 00:00: 00 Yes [id number] Take as directed before colonoscop y [facility] peg-electro lyte soln 236-22.74-6 .74 -5.86 gram solution 2021-11 00:00: 00 Yes [id number] Take as directed before [facility]oscop y [facility] peg-electro lyte soln 236-22.74-6 .74 -5.86 gram solution 2021-11 00:00: 00 Yes [id number] Take as directed before colonoscop y [facility] peg-electro lyte soln 236-22.74-6 .74 -5.86 gram solution 2021-11 00:00: 00 Yes [id number] Take as directed before colonoscop y [facility] peg-electro lyte soln 236-22.74-6 .74 -5.86 gram solution 2021-11 00:00: 00 Yes [id number] Take as directed before colonoscop y [facility] peg-electro lyte soln 236-22.74-6 .74 -5.86 gram solution 2021-11 00:00: 00 Yes [id number] Take as directed before colonoscop y [facility] peg-electro lyte soln 236-22.74-6 .74 -5.86 gram solution 2021-11 00:00: 00 Yes [id number] Take as directed before colonoscop y [facility] peg-electro lyte soln 236-22.74-6 .74 -5.86 gram solution 2021-11 00:00: 00 Yes [id number] Take as directed before colonoscop y [facility] peg-electro lyte soln 236-22.74-6 .74 -5.86 gram solution 2021-11 00:00: 00 Yes [id number] Take as directed before colonoscop y [facility] peg-electro lyte soln 236-22.74-6 .74 -5.86 gram solution 2021-11 00:00: 00 Yes [id number] Take as directed before colonoscop y [facility] peg-electro lyte soln 236-22.74-6 .74 -5.86 gram solution 2021-11 00:00: 00 Yes [id number] Take as directed before colonoscop y [facility] peg-electro lyte soln 236-22.74-6 .74 -5.86 gram solution 2021-11 00:00: 00 Yes [id number] Take as directed before colonoscop y [facility] peg-electro lyte soln 236-22.74-6 .74 -5.86 gram solution 2021-11 00:00: 00 Yes [id number] Take as directed before colonoscop y [facility] peg-electro lyte soln 236-22.74-6 .74 -5.86 gram solution 2021-11 00:00: 00 Yes [id number] Take as directed before colonoscop y [facility] peg-electro lyte soln 236-22.74-6 .74 -5.86 gram solution 2021-11 00:00: 00 Yes [id number] Take as directed before colonoscop y [facility] peg-electro lyte soln 236-22.74-6 .74 -5.86 gram solution 2021-11 00:00: 00 Yes [id number] Take as directed before colonoscop y [facility] peg-electro lyte soln 236-22.74-6 .74 -5.86 gram solution 2021-11 00:00: 00 Yes [id number] Take as directed before colonoscop y [facility] peg-electro lyte soln 236-22.74-6 .74 -5.86 gram solution 2021-11 00:00: 00 Yes [id number] Take as directed before colonoscop y [facility] peg-electro lyte soln 236-22.74-6 .74 -5.86 gram solution 2021-11 00:00: 00 Yes [id number] Take as directed before colonoscop y [facility] peg-electro lyte soln 236-22.74-6 .74 -5.86 gram solution 2021-11 00:00: 00 Yes [id number] Take as directed before colonoscop y [facility] peg-electro lyte soln 236-22.74-6 .74 -5.86 gram solution 2021-11 00:00: 00 Yes [id number] Take as directed before colonoscop y [facility] peg-electro lyte soln 236-22.74-6 .74 -5.86 gram solution 2021-11 00:00: 00 Yes [id number] Take as directed before colonoscop y [facility] peg-electro lyte soln 236-22.74-6 .74 -5.86 gram solution 2021-11 00:00: 00 Yes [id number] Take as directed before colonoscop y [facility] peg-electro lyte soln 236-22.74-6 .74 -5.86 gram solution 2021-11 00:00: 00 Yes [id number] Take as directed before colonoscop y [facility] peg-electro lyte soln 236-22.74-6 .74 -5.86 gram solution 2021-11 00:00: 00 Yes [id number] Take as directed before colonoscop y [facility] peg-electro lyte soln 236-22.74-6 .74 -5.86 gram solution 2021-11 00:00: 00 Yes [id number] Take as directed before colonoscop y [facility] peg-electro lyte soln 236-22.74-6 .74 -5.86 gram solution 2021-11 00:00: 00 Yes [id number] Take as directed before colonoscop y [facility] peg-electro lyte soln 236-22.74-6 .74 -5.86 gram solution 2021-11 00:00: 00 Yes [id number] Take as directed before colonoscop y [facility] peg-electro lyte soln 236-22.74-6 .74 -5.86 gram solution 2021-11 00:00: 00 Yes [id number] Take as directed before colonoscop y [facility] peg-electro lyte soln 236-22.74-6 .74 -5.86 gram solution 2021-11 00:00: 00 Yes [id number] Take as directed before colonoscop y [facility] peg-electro lyte soln 236-22.74-6 .74 -5.86 gram solution 2021-11 00:00: 00 Yes [id number] Take as directed before colonoscop y [facility] peg-electro lyte soln 236-22.74-6 .74 -5.86 gram solution 2021-11 00:00: 00 Yes [id number] Take as directed before colonoscop y [facility] peg-electro lyte soln 236-22.74-6 .74 -5.86 gram solution 2021-11 00:00: 00 Yes [id number] Take as directed before colonoscop y [facility] peg-electro lyte soln 236-22.74-6 .74 -5.86 gram solution 2021-11 00:00: 00 Yes [id number] Take as directed before colonoscop y [facility] peg-electro lyte soln 236-22.74-6 .74 -5.86 gram solution 2021-11 00:00: 00 Yes [id number] Take as directed before colonoscop y [facility] peg-electro lyte soln 236-22.74-6 .74 -5.86 gram solution 2021-11 00:00: 00 Yes [id number] Take as directed before colonoscop y [facility] peg-electro lyte soln 236-22.74-6 .74 -5.86 gram solution 2021-11 00:00: 00 Yes [id number] Take as directed before colonoscop y [facility] peg-electro lyte soln 236-22.74-6 .74 -5.86 gram solution 2021-11 00:00: 00 Yes [id number] Take as directed before colonoscop y [facility] peg-electro lyte soln 236-22.74-6 .74 -5.86 gram solution 2021-11 00:00: 00 Yes [id number] Take as directed before colonoscop y [facility] peg-electro lyte soln 236-22.74-6 .74 -5.86 gram solution 2021-11 2-14 00:00: 00 01-07 00:00 :00 No [id number] Take as directed before colonoscop y [facility] peg-electro lyte soln 236-22.74-6 .74 -5.86 gram solution 2021-11 2-14 00:00: 00 01-07 00:00 :00 No [id number] Take as directed before colonoscop y [facility] peg-electro lyte soln 236-22.74-6 .74 -5.86 gram solution 2021-11- 00:00: 00 01-07 00:00 :00 No [id number] Take as directed before colonoscop y [facility] peg-electro lyte soln 236-22.74-6 .74 -5.86 gram solution 2021-11 00:00: 00 01-07 00:00 :00 No [id number] Take as directed before colonoscop y [facility] peg-electro lyte soln 236-22.74-6 .74 -5.86 gram solution 2021-11 00:00: 00 01-07 00:00 :00 No [id number] Take as directed before colonoscop y [facility] lidocaine-e pinephrine (XYLOCAINE W/EPINEPHRI NE) 2 %-1:200,000 injection 2021-11 18:22: 00 10-29 18:31 :41 No PRN, Starting on Thu10/29/22 at 1222, Until Discontinu ed, Routine [facility] lidocaine-e pinephrine (XYLOCAINE W/EPINEPHRI NE) 2 %-1:200,000 injection 2021-11 18:22: 00 10-29 18:31 :41 No PRN, Starting on Thu10/29/22 at 1222, Until Discontinu ed, Routine [facility] FENTanyl PF (SUBLIMAZE (PF)) injection 2021-11 18:20: 00 10-29 18:29 :55 No Slow IV Push, PRN, Starting on Thu10/29/22 at 1220, Until Discontinu ed, Routine [facility] midazolam (VERSED) injection 2021-11 18:20: 00 10-29 18:29 :40 No IV Push, PRN, Starting on Thu10/29/22 at 1220, Until Discontinu ed, Routine [facility] FENTanyl PF (SUBLIMAZE (PF)) injection 2021-11 18:20: 00 10-29 18:29 :55 No Slow IV Push, PRN, Starting on Thu10/29/22 at 1220, Until Discontinu ed, Routine [facility] midazolam (VERSED) injection 2021-11 18:20: 00 10-29 18:29 :40 No IV Push, PRN, Starting on Thu10/29/22 at 1220, Until Discontinu ed, Routine [facility] ceFAZolin (ANCEF) injection 2021-11 18:10: 00 10-29 18:10 :00 No Slow IV Push, PRN, Starting on Thu10/29/22 at 1210, Until Discontinu ed, [facility] ceFAZolin (ANCEF) injection 2021-11 18:10: 00 10-29 18:10 :00 No Slow IV Push, PRN, Starting on Thu10/29/22 at 1210, Until Discontinu ed, [facility] pantoprazol e (PROTONIX) 40 mg EC tablet 2021-11 00:00: 00 Yes [id number] 40mg Take 1 tablet by mouth in the morning and 1 tablet in the evening. [facility] pantoprazol e (PROTONIX) 40 mg EC tablet 2021-11 00:00: 00 Yes [id number] 40mg Take 1 tablet by mouth in the morning and 1 tablet in the evening. [facility] pantoprazol e (PROTONIX) 40 mg EC tablet 2021-11 00:00: 00 Yes [id number] 40mg Take 1 tablet by mouth in the morning and 1 tablet in the evening. [facility] pantoprazol e (PROTONIX) 40 mg EC tablet 2021-11 00:00: 00 Yes [id number] 40mg Take 1 tablet by mouth in the morning and 1 tablet in the evening. [facility] pantoprazol e (PROTONIX) 40 mg EC tablet 2021-11 00:00: 00 Yes [id number] 40mg Take 1 tablet by mouth in the morning and 1 tablet in the evening. [facility] pantoprazol e (PROTONIX) 40 mg EC tablet 2021-11 00:00: 00 Yes [id number] 40mg Take 1 tablet by mouth in the morning and 1 tablet in the evening. [facility] pantoprazol e (PROTONIX) 40 mg EC tablet 2021-11 00:00: 00 Yes [id number] 40mg Take 1 tablet by mouth in the morning and 1 tablet in the evening. [facility] pantoprazol e (PROTONIX) 40 mg EC tablet 2021-11 00:00: 00 Yes [id number] 40mg Take 1 tablet by mouth in the morning and 1 tablet in the evening. [facility] pantoprazol e (PROTONIX) 40 mg EC tablet 2021-11 00:00: 00 Yes [id number] 40mg Take 1 tablet by mouth in the morning and 1 tablet in the evening. [facility] pantoprazol e (PROTONIX) 40 mg EC tablet 2021-11 00:00: 00 Yes [id number] 40mg Take 1 tablet by mouth in the morning and 1 tablet in the evening. [facility] pantoprazol e (PROTONIX) 40 mg EC tablet 2021-11 00:00: 00 Yes [id number] 40mg Take 1 tablet by mouth in the morning and 1 tablet in the evening. [facility] pantoprazol e (PROTONIX) 40 mg EC tablet 2021-11 00:00: 00 Yes [id number] 40mg Take 1 tablet by mouth in the morning and 1 tablet in the evening. [facility] pantoprazol e (PROTONIX) 40 mg EC tablet 2021-11 00:00: 00 Yes [id number] 40mg Take 1 tablet by mouth in the morning and 1 tablet in the evening. [facility] pantoprazol e (PROTONIX) 40 mg EC tablet 2021-11 00:00: 00 Yes [id number] 40mg Take 1 tablet by mouth in the morning and 1 tablet in the evening. [facility] pantoprazol e (PROTONIX) 40 mg EC tablet 2021-11 00:00: 00 Yes [id number] 40mg Take 1 tablet by mouth in the morning and 1 tablet in the evening. [facility] pantoprazol e (PROTONIX) 40 mg EC tablet 2021-11 00:00: 00 Yes [id number] 40mg Take 1 tablet by mouth in the morning and 1 tablet in the evening. [facility] pantoprazol e (PROTONIX) 40 mg EC tablet 2021-11 00:00: 00 Yes [id number] 40mg Take 1 tablet by mouth in the morning and 1 tablet in the evening. [facility] Omeprazole Magnesium 20 mg capsule 2021-11 00:00: 00 11-21 05:59 :00 No [id number] 20mg Take 1 capsule by mouth in the morning for 30 days. [facility] pantoprazol e (PROTONIX) 40 mg EC tablet 2021-11 00:00: 00 11-13 00:00 :00 No [id number] 40mg Take 1 tablet by mouth in the morning and 1 tablet in the evening. [facility] pantoprazol e (PROTONIX) 40 mg EC tablet 2021-11 00:00: 00 11-13 00:00 :00 No [id number] 40mg Take 1 tablet by mouth in the morning and 1 tablet in the evening. [facility] pantoprazol e (PROTONIX) 40 mg EC tablet 2021-11 00:00: 00 11-13 00:00 :00 No [id number] 40mg Take 1 tablet by mouth in the morning and 1 tablet in the evening. [facility] pantoprazol e (PROTONIX) 40 mg EC tablet 2021-11 00:00: 00 11-13 00:00 :00 No [id number] 40mg Take 1 tablet by mouth in the morning and 1 tablet in the evening. [facility] pantoprazol e (PROTONIX) 40 mg EC tablet 2021-11 00:00: 00 11-13 00:00 :00 No [id number] 40mg Take 1 tablet by mouth in the morning and 1 tablet in the evening. [facility] Omeprazole Magnesium 20 mg capsule 2021-11 00:00: 00 10-21 00:00 :00 No [id number] 20mg Take 1 capsule by mouth in the morning for 30 days. [facility] iopamidol (ISOVUE 370-500 mL) injection 100 mL 2021-11 18:30: 00 10-19 18:45 :00 No [id number] 100mL 100 mL, Intravenou s, ONCE, 1 dose, On 10/19/22 at 1245, Routine [facility] zolpidem (AMBIEN) 5 mg tablet 2021-11 00:00: 00 Yes [id number] 5mg Take 1 tablet by mouth at bedtime as needed for Insomnia. [facility] zolpidem (AMBIEN) 5 mg tablet 2021-11 00:00: 00 Yes [id number] 5mg Take 1 tablet by mouth at bedtime as needed for Insomnia. [facility] zolpidem (AMBIEN) 5 mg tablet 2021-11 00:00: 00 Yes [id number] 5mg Take 1 tablet by mouth at bedtime as needed for Insomnia. [facility] zolpidem (AMBIEN) 5 mg tablet 2021-11 00:00: 00 Yes [id number] 5mg Take 1 tablet by mouth at bedtime as needed for Insomnia. [facility] zolpidem (AMBIEN) 5 mg tablet 2021-11 00:00: 00 Yes [id number] 5mg Take 1 tablet by mouth at bedtime as needed for Insomnia. [facility] zolpidem (AMBIEN) 5 mg tablet 2021-11 00:00: 00 Yes [id number] 5mg Take 1 tablet by mouth at bedtime as needed for Insomnia. [facility] zolpidem (AMBIEN) 5 mg tablet 2021-11 00:00: 00 Yes [id number] 5mg Take 1 tablet by mouth at bedtime as needed for Insomnia. [facility] zolpidem (AMBIEN) 5 mg tablet 2021-11 00:00: 00 Yes [id number] 5mg Take 1 tablet by mouth at bedtime as needed for Insomnia. [facility] zolpidem (AMBIEN) 5 mg tablet 2021-11 00:00: 00 Yes [id number] 5mg Take 1 tablet by mouth at bedtime as needed for Insomnia. [facility] zolpidem (AMBIEN) 5 mg tablet 2021-11 00:00: 00 Yes [id number] 5mg Take 1 tablet by mouth at bedtime as needed for Insomnia. [facility] zolpidem (AMBIEN) 5 mg tablet 2021-11 00:00: 00 Yes [id number] 5mg Take 1 tablet by mouth at bedtime as needed for Insomnia. [facility] zolpidem (AMBIEN) 5 mg tablet 2021-11 00:00: 00 Yes [id number] 5mg Take 1 tablet by mouth at bedtime as needed for Insomnia. [facility] zolpidem (AMBIEN) 5 mg tablet 2021-11 00:00: 00 Yes [id number] 5mg Take 1 tablet by mouth at bedtime as needed for Insomnia. [facility] zolpidem (AMBIEN) 5 mg tablet 2021-11 00:00: 00 Yes [id number] 5mg Take 1 tablet by mouth at bedtime as needed for Insomnia. [facility] zolpidem (AMBIEN) 5 mg tablet 2021-11 00:00: 00 Yes [id number] 5mg Take 1 tablet by mouth at bedtime as needed for Insomnia. [facility] zolpidem (AMBIEN) 5 mg tablet 2021-11 00:00: 00 Yes [id number] 5mg Take 1 tablet by mouth at bedtime as needed for Insomnia. [facility] zolpidem (AMBIEN) 5 mg tablet 2021-11 00:00: 00 Yes [id number] 5mg Take 1 tablet by mouth at bedtime as needed for Insomnia. [facility] zolpidem (AMBIEN) 5 mg tablet 2021-11 00:00: 00 Yes [id number] 5mg Take 1 tablet by mouth at bedtime as needed for Insomnia. [facility] zolpidem (AMBIEN) 5 mg tablet 2021-11 00:00: 00 Yes [id number] 5mg Take 1 tablet by mouth at bedtime as needed for Insomnia. [facility] zolpidem (AMBIEN) 5 mg tablet 2021-11 00:00: 00 Yes [id number] 5mg Take 1 tablet by mouth at bedtime as needed for Insomnia. [facility] zolpidem (AMBIEN) 5 mg tablet 2021-11 00:00: 00 Yes [id number] 5mg Take 1 tablet by mouth at bedtime as needed for Insomnia. [facility] zolpidem (AMBIEN) 5 mg tablet 2021-11 00:00: 00 Yes [id number] 5mg Take 1 tablet by mouth at bedtime as needed for Insomnia. [facility] zolpidem (AMBIEN) 5 mg tablet 2021-11 00:00: 00 Yes [id number] 5mg Take 1 tablet by mouth at bedtime as needed for Insomnia. [facility] zolpidem (AMBIEN) 5 mg tablet 2021-11 00:00: 00 Yes [id number] 5mg Take 1 tablet by mouth at bedtime as needed for Insomnia. [facility] zolpidem (AMBIEN) 5 mg tablet 2021-11 00:00: 00 Yes [id number] 5mg Take 1 tablet by mouth at bedtime as needed for Insomnia. [facility] zolpidem (AMBIEN) 5 mg tablet 2021-11 00:00: 00 Yes [id number] 5mg Take 1 tablet by mouth at bedtime as needed for Insomnia. [facility] zolpidem (AMBIEN) 5 mg tablet 2021-11 00:00: 00 Yes [id number] 5mg Take 1 tablet by mouth at bedtime as needed for Insomnia. [facility] zolpidem (AMBIEN) 5 mg tablet 2021-11 00:00: 00 Yes [id number] 5mg Take 1 tablet by mouth at bedtime as needed for Insomnia. [facility] zolpidem (AMBIEN) 5 mg tablet 2021-11 00:00: 00 Yes [id number] 5mg Take 1 tablet by mouth at bedtime as needed for Insomnia. [facility] zolpidem (AMBIEN) 5 mg tablet 2021-11 00:00: 00 Yes [id number] 5mg Take 1 tablet by mouth at bedtime as needed for Insomnia. [facility] zolpidem (AMBIEN) 5 mg tablet 2021-11 00:00: 00 Yes [id number] 5mg Take 1 tablet by mouth at bedtime as needed for Insomnia. [facility] zolpidem (AMBIEN) 5 mg tablet 2021-11 00:00: 00 Yes [id number] 5mg Take 1 tablet by mouth at bedtime as needed for Insomnia. [facility] zolpidem (AMBIEN) 5 mg tablet 2021-11 00:00: 00 Yes [id number] 5mg Take 1 tablet by mouth at bedtime as needed for Insomnia. [facility] zolpidem (AMBIEN) 5 mg tablet 2021-11 00:00: 00 Yes [id number] 5mg Take 1 tablet by mouth at bedtime as needed for Insomnia. [facility] zolpidem (AMBIEN) 5 mg tablet 2021-11 00:00: 00 Yes [id number] 5mg Take 1 tablet by mouth at bedtime as needed for Insomnia. [facility] zolpidem (AMBIEN) 5 mg tablet 2021-11 00:00: 00 Yes [id number] 5mg Take 1 tablet by mouth at bedtime as needed for Insomnia. [facility] zolpidem (AMBIEN) 5 mg tablet 2021-11 00:00: 00 Yes [id number] 5mg Take 1 tablet by mouth at bedtime as needed for Insomnia. [facility] zolpidem (AMBIEN) 5 mg tablet 2021-11 00:00: 00 Yes [id number] 5mg Take 1 tablet by mouth at bedtime as needed for Insomnia. [facility] zolpidem (AMBIEN) 5 mg tablet 2021-11 00:00: 00 Yes [id number] 5mg Take 1 tablet by mouth at bedtime as needed for Insomnia. [facility] zolpidem (AMBIEN) 5 mg tablet 2021-11 00:00: 00 Yes [id number] 5mg Take 1 tablet by mouth at bedtime as needed for Insomnia. [facility] zolpidem (AMBIEN) 5 mg tablet 2021-11 00:00: 00 Yes [id number] 5mg Take 1 tablet by mouth at bedtime as needed for Insomnia. [facility] zolpidem (AMBIEN) 5 mg tablet 2021-11 00:00: 00 Yes [id number] 5mg Take 1 tablet by mouth at bedtime as needed for Insomnia. [facility] zolpidem (AMBIEN) 5 mg tablet 2021-11 00:00: 00 Yes [id number] 5mg Take 1 tablet by mouth at bedtime as needed for Insomnia. [facility] zolpidem (AMBIEN) 5 mg tablet 2021-11 00:00: 00 Yes [id number] 5mg Take 1 tablet by mouth at bedtime as needed for Insomnia. [facility] zolpidem (AMBIEN) 5 mg tablet 2021-11 00:00: 00 Yes [id number] 5mg Take 1 tablet by mouth at bedtime as needed for Insomnia. [facility] zolpidem (AMBIEN) 5 mg tablet 2021-11 00:00: 00 Yes [id number] 5mg Take 1 tablet by mouth at bedtime as needed for Insomnia. [facility] zolpidem (AMBIEN) 5 mg tablet 2021-11 00:00: 00 Yes [id number] 5mg Take 1 tablet by mouth at bedtime as needed for Insomnia. [facility] zolpidem (AMBIEN) 5 mg tablet 2021-11 00:00: 00 Yes [id number] 5mg Take 1 tablet by mouth at bedtime as needed for Insomnia. [facility] zolpidem (AMBIEN) 5 mg tablet 2021-11 00:00: 00 Yes [id number] 5mg Take 1 tablet by mouth at bedtime as needed for Insomnia. [facility] zolpidem (AMBIEN) 5 mg tablet 2021-11 00:00: 00 Yes [id number] 5mg Take 1 tablet by mouth at bedtime as needed for Insomnia. [facility] zolpidem (AMBIEN) 5 mg tablet 2021-11 00:00: 00 Yes [id number] 5mg Take 1 tablet by mouth at bedtime as needed for Insomnia. [facility] zolpidem (AMBIEN) 5 mg tablet 2021-11 00:00: 00 Yes [id number] 5mg Take 1 tablet by mouth at bedtime as needed for Insomnia. [facility] zolpidem (AMBIEN) 5 mg tablet 2021-11 00:00: 00 Yes [id number] 5mg Take 1 tablet by mouth at bedtime as needed for Insomnia. [facility] zolpidem (AMBIEN) 5 mg tablet 2021-11 00:00: 00 Yes [id number] 5mg Take 1 tablet by mouth at bedtime as needed for Insomnia. [facility] zolpidem (AMBIEN) 5 mg tablet 2021-11 00:00: 00 Yes [id number] 5mg Take 1 tablet by mouth at bedtime as needed for Insomnia. [facility] zolpidem (AMBIEN) 5 mg tablet 2021-11 00:00: 00 Yes [id number] 5mg Take 1 tablet by mouth at bedtime as needed for Insomnia. [facility] zolpidem (AMBIEN) 5 mg tablet 2021-11 00:00: 00 Yes [id number] 5mg Take 1 tablet by mouth at bedtime as needed for Insomnia. [facility] zolpidem (AMBIEN) 5 mg tablet 2021-11 00:00: 00 Yes [id number] 5mg Take 1 tablet by mouth at bedtime as needed for Insomnia. [facility] zolpidem (AMBIEN) 5 mg tablet 2021-11 00:00: 00 Yes [id number] 5mg Take 1 tablet by mouth at bedtime as needed for Insomnia. [facility] zolpidem (AMBIEN) 5 mg tablet 2021-11 00:00: 00 Yes [id number] 5mg Take 1 tablet by mouth at bedtime as needed for Insomnia. [facility] zolpidem (AMBIEN) 5 mg tablet 2021-11 00:00: 00 Yes [id number] 5mg Take 1 tablet by mouth at bedtime as needed for Insomnia. [facility] zolpidem (AMBIEN) 5 mg tablet 2021-11 00:00: 00 Yes [id number] 5mg Take 1 tablet by mouth at bedtime as needed for Insomnia. [facility] zolpidem (AMBIEN) 5 mg tablet 2021-11 00:00: 00 Yes [id number] 5mg Take 1 tablet by mouth at bedtime as needed for Insomnia. [facility] zolpidem (AMBIEN) 5 mg tablet 2021-11 00:00: 00 Yes [id number] 5mg Take 1 tablet by mouth at bedtime as needed for Insomnia. [facility] zolpidem (AMBIEN) 5 mg tablet 2021-11 00:00: 00 Yes [id number] 5mg Take 1 tablet by mouth at bedtime as needed for Insomnia. [facility] zolpidem (AMBIEN) 5 mg tablet 2021-11 00:00: 00 Yes [id number] 5mg Take 1 tablet by mouth at bedtime as needed for Insomnia. [facility] zolpidem (AMBIEN) 5 mg tablet 2021-11 00:00: 00 Yes [id number] 5mg Take 1 tablet by mouth at bedtime as needed for Insomnia. [facility] zolpidem (AMBIEN) 5 mg tablet 2021-11 00:00: 00 Yes [id number] 5mg Take 1 tablet by mouth at bedtime as needed for Insomnia. [facility] zolpidem (AMBIEN) 5 mg tablet 2021-11 00:00: 00 Yes [id number] 5mg Take 1 tablet by mouth at bedtime as needed for Insomnia. [facility] zolpidem (AMBIEN) 5 mg tablet 2021-11 00:00: 00 Yes [id number] 5mg Take 1 tablet by mouth at bedtime as needed for Insomnia. [facility] zolpidem (AMBIEN) 5 mg tablet 2021-11 00:00: 00 Yes [id number] 5mg Take 1 tablet by mouth at bedtime as needed for Insomnia. [facility] zolpidem (AMBIEN) 5 mg tablet 2021-11 00:00: 00 Yes [id number] 5mg Take 1 tablet by mouth at bedtime as needed for Insomnia. [facility] zolpidem (AMBIEN) 5 mg tablet 2021-11 00:00: 00 Yes [id number] 5mg Take 1 tablet by mouth at bedtime as needed for Insomnia. [facility] zolpidem (AMBIEN) 5 mg tablet 2021-11 00:00: 00 Yes [id number] 5mg Take 1 tablet by mouth at bedtime as needed for Insomnia. [facility] zolpidem (AMBIEN) 5 mg tablet 2021-11 00:00: 00 Yes [id number] 5mg Take 1 tablet by mouth at bedtime as needed for Insomnia. [facility] zolpidem (AMBIEN) 5 mg tablet 2021-11 00:00: 00 Yes [id number] 5mg Take 1 tablet by mouth at bedtime as needed for Insomnia. [facility] zolpidem (AMBIEN) 5 mg tablet 2021-11 00:00: 00 Yes [id number] 5mg Take 1 tablet by mouth at bedtime as needed for Insomnia. [facility] zolpidem (AMBIEN) 5 mg tablet 2021-11 00:00: 00 Yes [id number] 5mg Take 1 tablet by mouth at bedtime as needed for Insomnia. [facility] zolpidem (AMBIEN) 5 mg tablet 2021-11 00:00: 00 Yes [id number] 5mg Take 1 tablet by mouth at bedtime as needed for Insomnia. [facility] zolpidem (AMBIEN) 5 mg tablet 2021-11 00:00: 00 Yes [id number] 5mg Take 1 tablet by mouth at bedtime as needed for Insomnia. [facility] zolpidem (AMBIEN) 5 mg tablet 2021-11 00:00: 00 Yes [id number] 5mg Take 1 tablet by mouth at bedtime as needed for Insomnia. [facility] zolpidem (AMBIEN) 5 mg tablet 2021-11 00:00: 00 Yes [id number] 5mg Take 1 tablet by mouth at bedtime as needed for Insomnia. [facility] zolpidem (AMBIEN) 5 mg tablet 2021-11 00:00: 00 Yes [id number] 5mg Take 1 tablet by mouth at bedtime as needed for Insomnia. [facility] zolpidem (AMBIEN) 5 mg tablet 2021-11 00:00: 00 Yes [id number] 5mg Take 1 tablet by mouth at bedtime as needed for Insomnia. [facility] zolpidem (AMBIEN) 5 mg tablet 2021-11 00:00: 00 Yes [id number] 5mg Take 1 tablet by mouth at bedtime as needed for Insomnia. [facility] zolpidem (AMBIEN) 5 mg tablet 2021-11 00:00: 00 Yes [id number] 5mg Take 1 tablet by mouth at bedtime as needed for Insomnia. [facility] zolpidem (AMBIEN) 5 mg tablet 2021-11 00:00: 00 Yes [id number] 5mg Take 1 tablet by mouth at bedtime as needed for Insomnia. [facility] zolpidem (AMBIEN) 5 mg tablet 2021-11 00:00: 00 Yes [id number] 5mg Take 1 tablet by mouth at bedtime as needed for Insomnia. [facility] zolpidem (AMBIEN) 5 mg tablet 2021-11 00:00: 00 Yes [id number] 5mg Take 1 tablet by mouth at bedtime as needed for Insomnia. [facility] zolpidem (AMBIEN) 5 mg tablet 2021-11 00:00: 00 Yes [id number] 5mg Take 1 tablet by mouth at bedtime as needed for Insomnia. [facility] zolpidem (AMBIEN) 5 mg tablet 2021-11 00:00: 00 Yes [id number] 5mg Take 1 tablet by mouth at bedtime as needed for Insomnia. [facility] zolpidem (AMBIEN) 5 mg tablet 2021-11 00:00: 00 02-26 00:00 :00 No [id number] 5mg Take 1 tablet by mouth at bedtime as needed for Insomnia. [facility] zolpidem (AMBIEN) 5 mg tablet 2021-11 00:00: 00 02-26 00:00 :00 No [id number] 5mg Take 1 tablet by mouth at bedtime as needed for Insomnia. [facility] zolpidem (AMBIEN) 5 mg tablet 2021-11 00:00: 00 02-26 00:00 :00 No [id number] 5mg Take 1 tablet by mouth at bedtime as needed for Insomnia. [facility] zolpidem (AMBIEN) 5 mg tablet 2021-11 00:00: 00 02-26 00:00 :00 No [id number] 5mg Take 1 tablet by mouth at bedtime as needed for Insomnia. [facility] zolpidem (AMBIEN) 5 mg tablet 2021-11 00:00: 00 02-26 00:00 :00 No [id number] 5mg Take 1 tablet by mouth at bedtime as needed for Insomnia. [facility] zolpidem (AMBIEN) 5 mg tablet 2021-11 00:00: 00 02-26 00:00 :00 No [id number] 5mg Take 1 tablet by mouth at bedtime as needed for Insomnia. [facility] zolpidem (AMBIEN) 5 mg tablet 2021-11 00:00: 00 02-26 00:00 :00 No [id number] 5mg Take 1 tablet by mouth at bedtime as needed for Insomnia. [facility] PACLitaxeL (TAXOL) 160.8 mg in NaCl 0.9% (NS) 250 mL IV infusion 2021-11 17:15: 00 10-14 19:00 :00 No [id number] 80mg/m2 160.8 mg (80 mg/m2 ?2.01 m2 Treatment Plan BSA from Recorded weight), IV Infusion, ONCE, Administer over 60 Minutes, On Thu10/14/22 at 1115, For 1 dose
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 &nbs p;Administ er through a 0.22 micron in-line filter and nonsorbing administra tion set.
[facility] PACLitaxeL (TAXOL) 160.8 mg in NaCl 0.9% (NS) 250 mL IV infusion 2021-11 17:15: 00 10-14 19:00 :00 No [id number] 80mg/m2 160.8 mg (80 mg/m2 ?2.01 m2 Treatment Plan BSA from Recorded weight), IV Infusion, ONCE, Administer over 60 Minutes, On Thu10/14/22 at 1115, For 1 dose
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 &nbs p;Administ er through a 0.22 micron in-line filter and nonsorbing administra tion set.
[facility] trastuzumab -qyyp (TRAZIMERA) 170 mg in NaCl 0.9% (NS) 250 mL infusion 2021-11 16:15: 00 10-14 17:35 :00 No [id number] 2mg/kg 170 mg (rounded from 170.8 mg = 2 mg/kg ?85.4 kg Treatment plan Recorded weight), IV Infusion, ONCE, Administer over 60 Minutes, On Thu10/14/22 at 1015, For 1 dose
Sh ould be diluted in 0.9% Sodium Chloride only; DO NOT USE D5W. Diluted solutions may be stored in refrigerat or for up to 24 hours prior to use.
[facility] trastuzumab -qyyp (TRAZIMERA) 170 mg in NaCl 0.9% (NS) 250 mL infusion 2021-11 16:15: 00 10-14 17:35 :00 No [id number] 2mg/kg 170 mg (rounded from 170.8 mg = 2 mg/kg ?85.4 kg Treatment plan Recorded weight), IV Infusion, ONCE, Administer over 60 Minutes, On Thu10/14/22 at 1015, For 1 dose
Sh ould be diluted in 0.9% Sodium Chloride only; DO NOT USE D5W. Diluted solutions may be stored in refrigerat or for up to 24 hours prior to use.
[facility] acetaminoph en (TYLENOL) tablet 650 mg 2021-11 15:45: 00 10-14 15:45 :00 No [id number] 650mg 650 mg, Oral, ONCE, 1 dose, On Thu10/14/22 at 0945, Routine [facility] famotidine (PEPCID (PF)) injection 20 mg 2021-11 15:45: 00 10-14 15:48 :00 No [id number] 20mg 20 mg, Slow IV Push, ONCE, 1 dose, On Thu10/14/22 at 0945, Routine [facility] diphenhydrA MINE (BENADRYL) injection 50 mg 2021-11 15:45: 00 10-14 15:45 :00 No [id number] 50mg 50 mg, Slow IV Push, ONCE, 1 dose, On Thu10/14/22 at 0945, Routine [facility] dexamethaso ne sod phos PF injection 10 mg 2021-11 15:45: 00 10-14 15:50 :00 No [id number] 10mg 10 mg, Slow IV Push, ONCE, 1 dose, On Thu10/14/22 at 0945, 1 mL [facility] acetaminoph en (TYLENOL) tablet 650 mg 2021-11 15:45: 00 10-14 15:45 :00 No [id number] 650mg 650 mg, Oral, ONCE, 1 dose, On Thu10/14/22 at 0945, Routine [facility] famotidine (PEPCID (PF)) injection 20 mg 2021-11 15:45: 00 10-14 15:48 :00 No [id number] 20mg 20 mg, Slow IV Push, ONCE, 1 dose, On Thu10/14/22 at 0945, Routine [facility] diphenhydrA MINE (BENADRYL) injection 50 mg 2021-11 15:45: 00 10-14 15:45 :00 No [id number] 50mg 50 mg, Slow IV Push, ONCE, 1 dose, On Thu10/14/22 at 0945, Routine [facility] dexamethaso ne sod phos PF injection 10 mg 2021-11 15:45: 00 10-14 15:50 :00 No [id number] 10mg 10 mg, Slow IV Push, ONCE, 1 dose, On Thu10/14/22 at 0945, 1 mL [facility] atropine injection 0.25 mg 2021-11 15:43: 01 10-15 15:42 :01 No [id number] .25mg 0.25 mg, IV Push, PRN, Starting on Thu10/14/22 at 0943, Until Thu10/15/22 at 0942, Routine, Stomach cramping, acute flushing. [facility] albuterol (PROVENTIL) 2.5 mg /3 mL (0.083 %) nebulizer solution 2.5 mg 2021-11 15:43: 10-15 15:42 :01 No [id number] 2.5mg 2.5 mg, Inhalation , PRN - SEE INSTRUCTIO NS, Starting on Thu10/14/22 at 0943, Until Thu10/15/22 at 0942, Routine, Shortness of Breath, Wheezing, As needed for chemothera py reactions [facility] methylpredn isolone sod succ (SOLU-MEDRO L) injection 125 mg 2021-11 15:43: 10-15 15:42 :01 No [id number] 125mg 125 mg, Slow IV Push, Administer over 3 Minutes, PRN - SEE INSTRUCTIO NS, Starting on Thu10/14/22 at 0943, Until Thu10/15/22 at 0942, Routine, As needed for chemothera py reactions [facility] EPINEPHrine (EPIPEN AUTO-INJECT OR) 0.3 mg/0.3 mL injection 0.3 mg 2021-11 15:43: 10-15 15:42 :01 No [id number] .3mg 0.3 mg, Intramuscu lar, PRN - SEE INSTRUCTIO NS, Starting on Thu10/14/22 at 0943, Until Thu10/15/22 at 0942, Routine, As needed for chemothera py reactions [facility] diphenhydrA MINE (BENADRYL) injection 50 mg 2021-11 15:43: 01 10-15 15:42 :01 No [id number] 50mg 50 mg, Slow IV Push, Administer over 2 Minutes, PRN - SEE INSTRUCTIO NS, Starting on Thu10/14/22 at 0943, Until Thu10/15/22 at 0942, Routine, As needed for chemothera py reactions< br>INDICAT ION: ANAPHYLAXI S [facility] proCHLORper azine (COMPAZINE) tablet 10 mg 2021-11 15:43: 01 10-15 15:42 :01 No [id number] 10mg 10 mg, Oral, Q6HPRN, Starting on Thu10/14/22 at 0943, Until Thu10/15/22 at 0942, Routine, Nausea and Vomiting (N/V) [facility] heparin lock flush (HEPARIN LOCKFLUSH(P ORCINE)(PF) ) 100 unit/mL injection 500 Units 2021-11 15:43: 01 10-15 15:42 :01 No [id number] 500U 500 Units, IV Push, PRN, Starting on Thu10/14/22 at 0943, Until Thu10/15/22 at 0942, Routine [facility] methylPREDN ISolone acetate (DEPO-MEDRO L) 80 mg/mL 80 mg, lidocaine 1% (PF) (XYLOCAINE) 3 mL, bupivacaine (preserv free) 0.5% (SENSORCAIN E MPF) 0.5 % (5 mg/mL) 6 mL 10 mL injection 2021-11 20:30: 00 10-13 19:42 :00 No [id number] 80mg [facility] methylPREDN ISolone acetate (DEPO-MEDRO L) 80 mg/mL 80 mg, lidocaine 1% (PF) (XYLOCAINE) 3 mL, bupivacaine (preserv free) 0.5% (SENSORCAIN E MPF) 0.5 % (5 mg/mL) 6 mL 10 mL injection 2021-11 20:30: 00 10-13 19:42 :00 No [id number] 80mg Intra-tanya cular, ONCE, 1 dose, On Thu10/13/22 at 1430, 10 mL [facility] methylPREDN ISolone acetate (DEPO-MEDRO L) 80 mg/mL 80 mg, lidocaine 1% (PF) (XYLOCAINE) 3 mL, bupivacaine (preserv free) 0.5% (SENSORCAIN E MPF) 0.5 % (5 mg/mL) 6 mL 10 mL injection 2021-11 20:30: 00 10-13 19:42 :00 No [id number] 80mg [facility] methylPREDN ISolone acetate (DEPO-MEDRO L) 80 mg/mL 80 mg, lidocaine 1% (PF) (XYLOCAINE) 3 mL, bupivacaine (preserv free) 0.5% (SENSORCAIN E MPF) 0.5 % (5 mg/mL) 6 mL 10 mL injection 2021-11 20:30: 00 10-13 19:42 :00 No [id number] 80mg Intra-tanya cular, ONCE, 1 dose, On Thu10/13/22 at 1430, 10 mL [facility] methylPREDN ISolone acetate (DEPO-MEDRO L) 80 mg/mL 80 mg, lidocaine 1% (PF) (XYLOCAINE) 3 mL, bupivacaine (preserv free) 0.5% (SENSORCAIN E MPF) 0.5 % (5 mg/mL) 6 mL 10 mL injection 2021-11 20:30: 00 10-13 19:42 :00 No [id number] 80mg [facility] methylPREDN ISolone acetate (DEPO-MEDRO L) 80 mg/mL 80 mg, lidocaine 1% (PF) (XYLOCAINE) 3 mL, bupivacaine (preserv free) 0.5% (SENSORCAIN E MPF) 0.5 % (5 mg/mL) 6 mL 10 mL injection 2021-11 20:30: 00 10-13 19:42 :00 No [id number] 80mg Intra-tanya cular, ONCE, 1 dose, On Thu10/13/22 at 1430, 10 mL [facility] alteplase (CATHFLO ACTIVASE) injection 2 mg 2021-11 19:45: 00 10-07 19:23 :00 No [id number] 2mg 2 mg, INTRA-CATH ETER, Administer over 0.5 Hours, ONCE, 1 dose, On Thu10/07/22 at 1345, Routine [facility] PACLitaxeL (TAXOL) 160.8 mg in NaCl 0.9% (NS) 250 mL IV infusion 2021-11 18:45: 00 10-07 20:58 :00 No [id number] 80mg/m2 160.8 mg (80 mg/m2 ?2.01 m2 Treatment Plan BSA from Recorded weight), IV Infusion, ONCE, Administer over 60 Minutes, On Thu10/07/22 at 1245, For 1 dose
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 &nbs p;Administ er through a 0.22 micron in-line filter and nonsorbing administra tion set.
[facility] alteplase (CATHFLO ACTIVASE) injection 2 mg 2021-11 17:00: 00 10-07 16:56 :00 No [id number] 2mg 2 mg, Chest Tube, Administer over 0.5 Hours, ONCE, 1 dose, On Thu10/07/22 at 1100, Routine [facility] trastuzumab -qyyp (TRAZIMERA) 340 mg in NaCl 0.9% (NS) 250 mL infusion 2021-11 16:45: 00 10-07 19:42 :00 No [id number] 4mg/kg 340 mg (rounded from 341.6 mg = 4 mg/kg ?85.4 kg Treatment plan Recorded weight), IV Infusion, ONCE, Administer over 120 Minutes, On Thu10/07/22 at 1045, For 1 dose
Sh ould be diluted in 0.9% Sodium Chloride only; DO NOT USE D5W. Diluted solutions may be stored in refrigerat or for up to 24 hours prior to use.
[facility] heparin lock flush (HEPARIN LOCKFLUSH(P ORCINE)(PF) ) 100 unit/mL injection 500 Units 2021-11 16:25: 47 10-08 16:24 :47 No [id number] 500U 500 Units, IV Push, PRN, Starting on Thu10/07/22 at 1025, Until Thu10/08/22 at 1024, Routine [facility] acetaminoph en (TYLENOL) tablet 650 mg 2021-11 16:15: 00 10-07 16:26 :00 No [id number] 650mg 650 mg, Oral, ONCE, 1 dose, On Thu10/07/22 at 1015, Routine [facility] famotidine (PEPCID (PF)) injection 20 mg 2021-11 16:15: 00 10-07 16:22 :00 No [id number] 20mg 20 mg, Slow IV Push, ONCE, 1 dose, On Thu10/07/22 at 1015, Routine [facility] diphenhydrA MINE (BENADRYL) injection 50 mg 2021-11 16:15: 00 10-07 16:24 :00 No [id number] 50mg 50 mg, Slow IV Push, ONCE, 1 dose, On Thu10/07/22 at 1015, Routine [facility] dexamethaso ne sod phos PF injection 10 mg 2021-11 16:15: 00 10-07 16:28 :00 No [id number] 10mg 10 mg, Slow IV Push, ONCE, 1 dose, On Thu10/07/22 at 1015, 1 mL [facility] naproxen (NAPROSYN) 500 mg tablet 2021-11 00:00: 00 Yes [id number] 500mg Take 1 tablet by mouth in the morning and 1 tablet in the evening. Take with meals. [facility] naproxen (NAPROSYN) 500 mg tablet 2021-11 00:00: 00 Yes [id number] 500mg Take 1 tablet by mouth in the morning and 1 tablet in the evening. Take with meals. [facility] naproxen (NAPROSYN) 500 mg tablet 2021-11 00:00: 00 Yes [id number] 500mg Take 1 tablet by mouth in the morning and 1 tablet in the evening. Take with meals. [facility] naproxen (NAPROSYN) 500 mg tablet 2021-11 00:00: 00 Yes [id number] 500mg Take 1 tablet by mouth in the morning and 1 tablet in the evening. Take with meals. [facility] naproxen (NAPROSYN) 500 mg tablet 2021-11 00:00: 00 Yes [id number] 500mg Take 1 tablet by mouth in the morning and 1 tablet in the evening. Take with meals. [facility] naproxen (NAPROSYN) 500 mg tablet 2021-11 0 00:00: 00 Yes [id number] 500mg Take 1 tablet by mouth in the morning and 1 tablet in the evening. Take with meals. [facility] naproxen (NAPROSYN) 500 mg tablet 2021-11 0 00:00: 00 Yes [id number] 500mg Take 1 tablet by mouth in the morning and 1 tablet in the evening. Take with meals. [facility] naproxen (NAPROSYN) 500 mg tablet 2021-11 00:00: 00 Yes [id number] 500mg Take 1 tablet by mouth in the morning and 1 tablet in the evening. Take with meals. [facility] naproxen (NAPROSYN) 500 mg tablet 2021-11 00:00: 00 Yes [id number] 500mg Take 1 tablet by mouth in the morning and 1 tablet in the evening. Take with meals. [facility] naproxen (NAPROSYN) 500 mg tablet 2021-11 00:00: 00 Yes [id number] 500mg Take 1 tablet by mouth in the morning and 1 tablet in the evening. Take with meals. [facility] naproxen (NAPROSYN) 500 mg tablet 2021-11 00:00: 00 Yes [id number] 500mg Take 1 tablet by mouth in the morning and 1 tablet in the evening. Take with meals. [facility] naproxen (NAPROSYN) 500 mg tablet 2021-11 00:00: 00 Yes [id number] 500mg Take 1 tablet by mouth in the morning and 1 tablet in the evening. Take with meals. [facility] naproxen (NAPROSYN) 500 mg tablet 2021-11 0 00:00: 00 Yes [id number] 500mg Take 1 tablet by mouth in the morning and 1 tablet in the evening. Take with meals. [facility] naproxen (NAPROSYN) 500 mg tablet 2021 0 00:00: 00 Yes [id number] 500mg Take 1 tablet by mouth in the morning and 1 tablet in the evening. Take with meals. [facility] naproxen (NAPROSYN) 500 mg tablet 2021-11 0 00:00: 00 Yes [id number] 500mg Take 1 tablet by mouth in the morning and 1 tablet in the evening. Take with meals. [facility] naproxen (NAPROSYN) 500 mg tablet 2021-11 0 00:00: 00 Yes [id number] 500mg Take 1 tablet by mouth in the morning and 1 tablet in the evening. Take with meals. [facility] naproxen (NAPROSYN) 500 mg tablet 2021-11 00:00: 00 Yes [id number] 500mg Take 1 tablet by mouth in the morning and 1 tablet in the evening. Take with meals. [facility] naproxen (NAPROSYN) 500 mg tablet 2021-11 00:00: 00 Yes [id number] 500mg Take 1 tablet by mouth in the morning and 1 tablet in the evening. Take with meals. [facility] naproxen (NAPROSYN) 500 mg tablet 2021-11 00:00: 00 Yes [id number] 500mg Take 1 tablet by mouth in the morning and 1 tablet in the evening. Take with meals. [facility] naproxen (NAPROSYN) 500 mg tablet 2021-11 00:00: 00 Yes [id number] 500mg Take 1 tablet by mouth in the morning and 1 tablet in the evening. Take with meals. [facility] naproxen (NAPROSYN) 500 mg tablet 2021-11 00:00: 00 Yes [id number] 500mg Take 1 tablet by mouth in the morning and 1 tablet in the evening. Take with meals. [facility] naproxen (NAPROSYN) 500 mg tablet 2021-11 0 00:00: 00 Yes [id number] 500mg Take 1 tablet by mouth in the morning and 1 tablet in the evening. Take with meals. [facility] naproxen (NAPROSYN) 500 mg tablet 2021 0 00:00: 00 Yes [id number] 500mg Take 1 tablet by mouth in the morning and 1 tablet in the evening. Take with meals. [facility] naproxen (NAPROSYN) 500 mg tablet 2021-11 0 00:00: 00 Yes [id number] 500mg Take 1 tablet by mouth in the morning and 1 tablet in the evening. Take with meals. [facility] naproxen (NAPROSYN) 500 mg tablet 2021-11 0 00:00: 00 Yes [id number] 500mg Take 1 tablet by mouth in the morning and 1 tablet in the evening. Take with meals. [facility] naproxen (NAPROSYN) 500 mg tablet 2021-11 00:00: 00 Yes [id number] 500mg Take 1 tablet by mouth in the morning and 1 tablet in the evening. Take with meals. [facility] naproxen (NAPROSYN) 500 mg tablet 2021-11 00:00: 00 Yes [id number] 500mg Take 1 tablet by mouth in the morning and 1 tablet in the evening. Take with meals. [facility] naproxen (NAPROSYN) 500 mg tablet 2021-11 00:00: 00 Yes [id number] 500mg Take 1 tablet by mouth in the morning and 1 tablet in the evening. Take with meals. [facility] naproxen (NAPROSYN) 500 mg tablet 2021-11 00:00: 00 Yes [id number] 500mg Take 1 tablet by mouth in the morning and 1 tablet in the evening. Take with meals. [facility] naproxen (NAPROSYN) 500 mg tablet 2021-11 00:00: 00 Yes [id number] 500mg Take 1 tablet by mouth in the morning and 1 tablet in the evening. Take with meals. [facility] naproxen (NAPROSYN) 500 mg tablet 2021-11 0 00:00: 00 Yes [id number] 500mg Take 1 tablet by mouth in the morning and 1 tablet in the evening. Take with meals. [facility] naproxen (NAPROSYN) 500 mg tablet 2021 0 00:00: 00 Yes [id number] 500mg Take 1 tablet by mouth in the morning and 1 tablet in the evening. Take with meals. [facility] naproxen (NAPROSYN) 500 mg tablet 2021-11 0 00:00: 00 Yes [id number] 500mg Take 1 tablet by mouth in the morning and 1 tablet in the evening. Take with meals. [facility] naproxen (NAPROSYN) 500 mg tablet 2021-11 0 00:00: 00 Yes [id number] 500mg Take 1 tablet by mouth in the morning and 1 tablet in the evening. Take with meals. [facility] naproxen (NAPROSYN) 500 mg tablet 2021-11 00:00: 00 Yes [id number] 500mg Take 1 tablet by mouth in the morning and 1 tablet in the evening. Take with meals. [facility] naproxen (NAPROSYN) 500 mg tablet 2021-11 00:00: 00 Yes [id number] 500mg Take 1 tablet by mouth in the morning and 1 tablet in the evening. Take with meals. [facility] naproxen (NAPROSYN) 500 mg tablet 2021-11 00:00: 00 Yes [id number] 500mg Take 1 tablet by mouth in the morning and 1 tablet in the evening. Take with meals. [facility] naproxen (NAPROSYN) 500 mg tablet 2021-11 00:00: 00 Yes [id number] 500mg Take 1 tablet by mouth in the morning and 1 tablet in the evening. Take with meals. [facility] naproxen (NAPROSYN) 500 mg tablet 2021-11 00:00: 00 Yes [id number] 500mg Take 1 tablet by mouth in the morning and 1 tablet in the evening. Take with meals. [facility] naproxen (NAPROSYN) 500 mg tablet 2021 00:00: 00 Yes [id number] 500mg Take 1 tablet by mouth in the morning and 1 tablet in the evening. Take with meals. [facility] naproxen (NAPROSYN) 500 mg tablet 2021-11 0 00:00: 00 Yes [id number] 500mg Take 1 tablet by mouth in the morning and 1 tablet in the evening. Take with meals. [facility] naproxen (NAPROSYN) 500 mg tablet 2021-11 0 00:00: 00 Yes [id number] 500mg Take 1 tablet by mouth in the morning and 1 tablet in the evening. Take with meals. [facility] naproxen (NAPROSYN) 500 mg tablet 2021-11 0 00:00: 00 Yes [id number] 500mg Take 1 tablet by mouth in the morning and 1 tablet in the evening. Take with meals. [facility] naproxen (NAPROSYN) 500 mg tablet 2021-11 0 00:00: 00 Yes [id number] 500mg Take 1 tablet by mouth in the morning and 1 tablet in the evening. Take with meals. [facility] naproxen (NAPROSYN) 500 mg tablet 2021-11 0 00:00: 00 Yes [id number] 500mg Take 1 tablet by mouth in the morning and 1 tablet in the evening. Take with meals. [facility] naproxen (NAPROSYN) 500 mg tablet 2021-11 0 00:00: 00 Yes [id number] 500mg Take 1 tablet by mouth in the morning and 1 tablet in the evening. Take with meals. [facility] naproxen (NAPROSYN) 500 mg tablet 2021-11 0 00:00: 00 10-29 00:00 :00 No [id number] 500mg Take 1 tablet by mouth in the morning and 1 tablet in the evening. Take with meals. [facility] naproxen (NAPROSYN) 500 mg tablet 2021-11 0 00:00: 00 10-29 00:00 :00 No [id number] 500mg Take 1 tablet by mouth in the morning and 1 tablet in the evening. Take with meals. [facility] naproxen (NAPROSYN) 500 mg tablet 2021-11 0 00:00: 00 10-29 00:00 :00 No [id number] 500mg Take 1 tablet by mouth in the morning and 1 tablet in the evening. Take with meals. [facility] naproxen (NAPROSYN) 500 mg tablet 2021-11 0 00:00: 10-29 00:00 :00 No [id number] 500mg Take 1 tablet by mouth in the morning and 1 tablet in the evening. Take with meals. [facility] naproxen (NAPROSYN) 500 mg tablet 2021-11 00:00: 10-29 00:00 :00 No [id number] 500mg Take 1 tablet by mouth in the morning and 1 tablet in the evening. Take with meals. [facility] naproxen (NAPROSYN) 500 mg tablet 2021-11 00:00: 00 10-29 00:00 :00 No [id number] 500mg Take 1 tablet by mouth in the morning and 1 tablet in the evening. Take with meals. [facility] naproxen (NAPROSYN) 500 mg tablet 2021-11 00:00: 00 10-29 00:00 :00 No [id number] 500mg Take 1 tablet by mouth in the morning and 1 tablet in the evening. Take with meals. [facility] naproxen (NAPROSYN) 500 mg tablet 2021-11 00:00: 00 10-29 00:00 :00 No [id number] 500mg Take 1 tablet by mouth in the morning and 1 tablet in the evening. Take with meals. [facility] Dimenhydrin ate (DRAMAMINE) 50 mg Chew 2021-11 00:00: 00 09-24 04:59 :00 No [id number] 50mg Take 50 mg by mouth at bedtime for 14 days. [facility] Dimenhydrin ate (DRAMAMINE) 50 mg Chew 2021-11 00:00: 00 09-24 04:59 :00 No [id number] 50mg Take 50 mg by mouth at bedtime for 14 days. [facility] Dimenhydrin ate (DRAMAMINE) 50 mg Chew 2021-11 00:00: 00 09-24 04:59 :00 No [id number] 50mg Take 50 mg by mouth at bedtime for 14 days. [facility] Dimenhydrin ate (DRAMAMINE) 50 mg Chew 2021-11 0 00:00: 00 09-24 04:59 :00 No [id number] 50mg Take 50 mg by mouth at bedtime for 14 days. [facility] Dimenhydrin ate (DRAMAMINE) 50 mg Chew 2021-11 0 00:00: 00 09-24 04:59 :00 No [id number] 50mg Take 50 mg by mouth at bedtime for 14 days. [facility] Dimenhydrin ate (DRAMAMINE) 50 mg Chew 2021-11 00:00: 00 09-24 04:59 :00 No [id number] 50mg Take 50 mg by mouth at bedtime for 14 days. [facility] Dimenhydrin ate (DRAMAMINE) 50 mg Chew 2021-11 0 00:00: 00 09-24 04:59 :00 No [id number] 50mg Take 50 mg by mouth at bedtime for 14 days. [facility] Dimenhydrin ate (DRAMAMINE) 50 mg Chew 2021-11 0 00:00: 00 09-24 04:59 :00 No [id number] 50mg Take 50 mg by mouth at bedtime for 14 days. [facility] Dimenhydrin ate (DRAMAMINE) 50 mg Chew 2021-11 0 00:00: 00 09-24 04:59 :00 No [id number] 50mg Take 50 mg by mouth at bedtime for 14 days. [facility] Dimenhydrin ate (DRAMAMINE) 50 mg Chew 2021-11 011 00:00: 00 09-24 04:59 :00 No [id number] 50mg Take 50 mg by mouth at bedtime for 14 days. [facility] Dimenhydrin ate (DRAMAMINE) 50 mg Chew 2021-11 0-11 00:00: 00 09-24 04:59 :00 No [id number] 50mg Take 50 mg by mouth at bedtime for 14 days. [facility] Dimenhydrin ate (DRAMAMINE) 50 mg Chew 2021-11 0- 00:00: 00 09-24 04:59 :00 No [id number] 50mg Take 50 mg by mouth at bedtime for 14 days. [facility] Dimenhydrin ate (DRAMAMINE) 50 mg Chew 2021-11 0- 00:00: 00 09-24 04:59 :00 No [id number] 50mg Take 50 mg by mouth at bedtime for 14 days. [facility] HYDROcodone -acetaminop hen 2.5-325 mg Tab 2021-11 0- 00:00: 00 09-17 04:59 :00 No [id number] 1{tbl} Take 1 tablet by mouth 2 (two) times daily for 7 days. Indication s: acute pain [facility] HYDROcodone -acetaminop hen 2.5-325 mg Tab 2021-11 0- 00:00: 00 09-17 04:59 :00 No [id number] 1{tbl} Take 1 tablet by mouth 2 (two) times daily for 7 days. Indication s: acute pain [facility] HYDROcodone -acetaminop hen 2.5-325 mg Tab 2021-11 0- 00:00: 00 09-17 04:59 :00 No [id number] 1{tbl} Take 1 tablet by mouth 2 (two) times daily for 7 days. Indication s: acute pain [facility] HYDROcodone -acetaminop hen 2.5-325 mg Tab 2021-11 0-11 00:00: 00 09-17 04:59 :00 No [id number] 1{tbl} Take 1 tablet by mouth 2 (two) times daily for 7 days. Indication s: acute pain [facility] HYDROcodone -acetaminop hen 2.5-325 mg Tab 2021-11 0-11 00:00: 00 09-17 04:59 :00 No [id number] 1{tbl} Take 1 tablet by mouth 2 (two) times daily for 7 days. Indication s: acute pain [facility] HYDROcodone -acetaminop hen 2.5-325 mg Tab 2021-11 0-11 00:00: 00 09-17 04:59 :00 No [id number] 1{tbl} Take 1 tablet by mouth 2 (two) times daily for 7 days. Indication s: acute pain [facility] HYDROcodone -acetaminop hen 2.5-325 mg Tab 2021-11 0-11 00:00: 00 09-17 04:59 :00 No [id number] 1{tbl} Take 1 tablet by mouth 2 (two) times daily for 7 days. Indication s: acute pain [facility] HYDROcodone -acetaminop hen 2.5-325 mg Tab 2021-11 0-11 00:00: 00 09-17 04:59 :00 No [id number] 1{tbl} Take 1 tablet by mouth 2 (two) times daily for 7 days. Indication s: acute pain [facility] HYDROcodone -acetaminop hen 2.5-325 mg Tab 2021-11 0-11 00:00: 00 09-17 04:59 :00 No [id number] 1{tbl} Take 1 tablet by mouth 2 (two) times daily for 7 days. Indication s: acute pain [facility] HYDROcodone -acetaminop hen 2.5-325 mg Tab 2021-11 0-11 00:00: 00 09-17 04:59 :00 No [id number] 1{tbl} Take 1 tablet by mouth 2 (two) times daily for 7 days. Indication s: acute pain [facility] HYDROcodone -acetaminop hen 2.5-325 mg Tab 2021-11 0-11 00:00: 00 09-17 04:59 :00 No [id number] 1{tbl} Take 1 tablet by mouth 2 (two) times daily for 7 days. Indication s: acute pain [facility] HYDROcodone -acetaminop hen 2.5-325 mg Tab 2021-11 0-11 00:00: 00 09-17 04:59 :00 No [id number] 1{tbl} Take 1 tablet by mouth 2 (two) times daily for 7 days. Indication s: acute pain [facility] loperamide 2 mg capsule 2021-11 0-05 00:00: 00 Yes [id number] 2mg Take 1 capsule by mouth every 4 (four) hours as needed for Diarrhea. [facility] proMETHazin e 25 mg suppository 2021-11 0-05 00:00: 00 Yes [id number] 25mg Insert 1 Suppositor y into rectum every 4 (four) hours as needed for Nausea and Vomiting (N/V). [facility] proCHLORper azine 10 mg tablet 2021-11 0-05 00:00: 00 Yes [id number] 10mg Take 1 tablet by mouth every 6 (six) hours as needed for Nausea and Vomiting (N/V). [facility] loperamide 2 mg capsule 2021-11 0-05 00:00: 00 Yes [id number] 2mg Take 1 capsule by mouth every 4 (four) hours as needed for Diarrhea. [facility] proMETHazin e 25 mg suppository 2021-11 0- 00:00: 00 Yes [id number] 25mg Insert 1 Suppositor y into rectum every 4 (four) hours as needed for Nausea and Vomiting (N/V). [facility] proCHLORper azine 10 mg tablet 2021-11 0-05 00:00: 00 Yes [id number] 10mg Take 1 tablet by mouth every 6 (six) hours as needed for Nausea and Vomiting (N/V). [facility] loperamide 2 mg capsule 2021-11 0-05 00:00: 00 Yes [id number] 2mg Take 1 capsule by mouth every 4 (four) hours as needed for Diarrhea. [facility]ETH[facility] e 25 mg suppository 2021-11 0-05 00:00: 00 Yes [id number] 25mg Insert 1 Suppositor y into rectum every 4 (four) hours as needed for Nausea and Vomiting (N/V). [facility]CHLORper azine 10 mg tablet 2021-11 0-05 00:00: 00 Yes [id number] 10mg Take 1 tablet by mouth every 6 (six) hours as needed for Nausea and Vomiting (N/V). [facility] loperamide 2 mg capsule 2021-11 0-05 00:00: 00 Yes [id number] 2mg Take 1 capsule by mouth every 4 (four) hours as needed for Diarrhea. [facility] 25 mg suppository 2021-11 0-05 00:00: 00 Yes [id number] 25mg Insert 1 Suppositor y into rectum every 4 (four) hours as needed for Nausea and Vomiting (N/V). [facility]per azine 10 mg tablet 2021-11 0-05 00:00: 00 Yes [id number] 10mg Take 1 tablet by mouth every 6 (six) hours as needed for Nausea and Vomiting (N/V). [facility] loperamide 2 mg capsule 2021-11 0-05 00:00: 00 Yes [id number] 2mg Take 1 capsule by mouth every 4 (four) hours as needed for Diarrhea. [facility] 25 mg suppository 2021-11 0-05 00:00: 00 Yes [id number] 25mg Insert 1 Suppositor y into rectum every 4 (four) hours as needed for Nausea and Vomiting (N/V). [facility] azine 10 mg tablet 2021-11 0-05 00:00: 00 Yes [id number] 10mg Take 1 tablet by mouth every 6 (six) hours as needed for Nausea and Vomiting (N/V). [facility] loperamide 2 mg capsule 2021-11 0-05 00:00: 00 Yes [id number] 2mg Take 1 capsule by mouth every 4 (four) hours as needed for Diarrhea. [facility] 25 mg suppository 2021-11 0-05 00:00: 00 Yes [id number] 25mg Insert 1 Suppositor y into rectum every 4 (four) hours as needed for Nausea and Vomiting (N/V). [facility] azine 10 mg tablet 2021-11 0-05 00:00: 00 Yes [id number] 10mg Take 1 tablet by mouth every 6 (six) hours as needed for Nausea and Vomiting (N/V). [facility] loperamide 2 mg capsule 2021- 0-05 00:00: 00 Yes [id number] 2mg Take 1 capsule by mouth every 4 (four) hours as needed for Diarrhea. [facility] 25 mg suppository 2021-11 0-05 00:00: 00 Yes [id number] 25mg Insert 1 Suppositor y into rectum every 4 (four) hours as needed for Nausea and Vomiting (N/V). [facility] azine 10 mg tablet 2021-11 0-05 00:00: 00 Yes [id number] 10mg Take 1 tablet by mouth every 6 (six) hours as needed for Nausea and Vomiting (N/V). [facility] loperamide 2 mg capsule 2021-11 0-05 00:00: 00 Yes [id number] 2mg Take 1 capsule by mouth every 4 (four) hours as needed for Diarrhea. [facility] 25 mg suppository 2021-11 0-05 00:00: 00 Yes [id number] 25mg Insert 1 Suppositor y into rectum every 4 (four) hours as needed for Nausea and Vomiting (N/V). [facility] azine 10 mg tablet 2021-11 0-05 00:00: 00 Yes [id number] 10mg Take 1 tablet by mouth every 6 (six) hours as needed for Nausea and Vomiting (N/V). [facility] loperamide 2 mg capsule 2021-11 0-05 00:00: 00 Yes [id number] 2mg Take 1 capsule by mouth every 4 (four) hours as needed for Diarrhea. [facility] 25 mg suppository 2021-11 0-05 00:00: 00 Yes [id number] 25mg Insert 1 Suppositor y into rectum every 4 (four) hours as needed for Nausea and Vomiting (N/V). [facility] azine 10 mg tablet 2021-11 0-05 00:00: 00 Yes [id number] 10mg Take 1 tablet by mouth every 6 (six) hours as needed for Nausea and Vomiting (N/V). [facility] loperamide 2 mg capsule 2021-11 0-05 00:00: 00 Yes [id number] 2mg Take 1 capsule by mouth every 4 (four) hours as needed for Diarrhea. [facility] 25 mg suppository 2021- 0-05 00:00: 00 Yes [id number] 25mg Insert 1 Suppositor y into rectum every 4 (four) hours as needed for Nausea and Vomiting (N/V). [facility] azine 10 mg tablet 2021-11 0-05 00:00: 00 Yes [id number] 10mg Take 1 tablet by mouth every 6 (six) hours as needed for Nausea and Vomiting (N/V). [facility] loperamide 2 mg capsule 2021-11 0-05 00:00: 00 Yes [id number] 2mg Take 1 capsule by mouth every 4 (four) hours as needed for Diarrhea. [facility] 25 mg suppository 2021-11 0-05 00:00: 00 Yes [id number] 25mg Insert 1 Suppositor y into rectum every 4 (four) hours as needed for Nausea and Vomiting (N/V). [facility] azine 10 mg tablet 2021-11 0-05 00:00: 00 Yes [id number] 10mg Take 1 tablet by mouth every 6 (six) hours as needed for Nausea and Vomiting (N/V). [facility] loperamide 2 mg capsule 2021-11 0-05 00:00: 00 Yes [id number] 2mg Take 1 capsule by mouth every 4 (four) hours as needed for Diarrhea. [facility] 25 mg suppository 2021-11 0-05 00:00: 00 Yes [id number] 25mg Insert 1 Suppositor y into rectum every 4 (four) hours as needed for Nausea and Vomiting (N/V). [facility] azine 10 mg tablet 2021-11 0-05 00:00: 00 Yes [id number] 10mg Take 1 tablet by mouth every 6 (six) hours as needed for Nausea and Vomiting (N/V). [facility] loperamide 2 mg capsule 2021- 0-05 00:00: 00 Yes [id number] 2mg Take 1 capsule by mouth every 4 (four) hours as needed for Diarrhea. [facility] 25 mg suppository 2021-11 0-05 00:00: 00 Yes [id number] 25mg Insert 1 Suppositor y into rectum every 4 (four) hours as needed for Nausea and Vomiting (N/V). [facility] azine 10 mg tablet 2021-11 0-05 00:00: 00 Yes [id number] 10mg Take 1 tablet by mouth every 6 (six) hours as needed for Nausea and Vomiting (N/V). [facility] loperamide 2 mg capsule 2021-11 0-05 00:00: 00 Yes [id number] 2mg Take 1 capsule by mouth every 4 (four) hours as needed for Diarrhea. [facility] 25 mg suppository 2021-11 0-05 00:00: 00 Yes [id number] 25mg Insert 1 Suppositor y into rectum every 4 (four) hours as needed for Nausea and Vomiting (N/V). [facility] azine 10 mg tablet 2021-11 0-05 00:00: 00 Yes [id number] 10mg Take 1 tablet by mouth every 6 (six) hours as needed for Nausea and Vomiting (N/V). [facility] loperamide 2 mg capsule 2021-11 0-05 00:00: 00 Yes [id number] 2mg Take 1 capsule by mouth every 4 (four) hours as needed for Diarrhea. [facility] 25 mg suppository 2021-11 0-05 00:00: 00 Yes [id number] 25mg Insert 1 Suppositor y into rectum every 4 (four) hours as needed for Nausea and Vomiting (N/V). [facility] azine 10 mg tablet 2021-11 0-05 00:00: 00 Yes [id number] 10mg Take 1 tablet by mouth every 6 (six) hours as needed for Nausea and Vomiting (N/V). [facility] loperamide 2 mg capsule 2021- 0-05 00:00: 00 Yes [id number] 2mg Take 1 capsule by mouth every 4 (four) hours as needed for Diarrhea. [facility] 25 mg suppository 2021-11 0-05 00:00: 00 Yes [id number] 25mg Insert 1 Suppositor y into rectum every 4 (four) hours as needed for Nausea and Vomiting (N/V). [facility] azine 10 mg tablet 2021-11 0-05 00:00: 00 Yes [id number] 10mg Take 1 tablet by mouth every 6 (six) hours as needed for Nausea and Vomiting (N/V). [facility] loperamide 2 mg capsule 2021-11 0-05 00:00: 00 Yes [id number] 2mg Take 1 capsule by mouth every 4 (four) hours as needed for Diarrhea. [facility] 25 mg suppository 2021-11 0-05 00:00: 00 Yes [id number] 25mg Insert 1 Suppositor y into rectum every 4 (four) hours as needed for Nausea and Vomiting (N/V). [facility] azine 10 mg tablet 2021-11 0-05 00:00: 00 Yes [id number] 10mg Take 1 tablet by mouth every 6 (six) hours as needed for Nausea and Vomiting (N/V). [facility] loperamide 2 mg capsule 2021-11 0-05 00:00: 00 Yes [id number] 2mg Take 1 capsule by mouth every 4 (four) hours as needed for Diarrhea. [facility] 25 mg suppository 2021-11 0-05 00:00: 00 Yes [id number] 25mg Insert 1 Suppositor y into rectum every 4 (four) hours as needed for Nausea and Vomiting (N/V). [facility]ORper azine 10 mg tablet 2021-11 0-05 00:00: 00 Yes [id number] 10mg Take 1 tablet by mouth every 6 (six) hours as needed for Nausea and Vomiting (N/V). [facility] loperamide 2 mg capsule 2021-11 0-05 00:00: 00 Yes [id number] 2mg Take 1 capsule by mouth every 4 (four) hours as needed for Diarrhea. [facility] 25 mg suppository 2021-11 0-05 00:00: 00 Yes [id number] 25mg Insert 1 Suppositor y into rectum every 4 (four) hours as needed for Nausea and Vomiting (N/V). [facility]LOR[facility] azine 10 mg tablet 2021-11 0-05 00:00: 00 Yes [id number] 10mg Take 1 tablet by mouth every 6 (six) hours as needed for Nausea and Vomiting (N/V). [facility] loperamide 2 mg capsule 2021-11 0-05 00:00: 00 Yes [id number] 2mg Take 1 capsule by mouth every 4 (four) hours as needed for Diarrhea. [facility] 25 mg suppository 2021-11 0-05 00:00: 00 Yes [id number] 25mg Insert 1 Suppositor y into rectum every 4 (four) hours as needed for Nausea and Vomiting (N/V). [facility] azine 10 mg tablet 2021-11 0-05 00:00: 00 Yes [id number] 10mg Take 1 tablet by mouth every 6 (six) hours as needed for Nausea and Vomiting (N/V). [facility] loperamide 2 mg capsule 2021-11 0-05 00:00: 00 Yes [id number] 2mg Take 1 capsule by mouth every 4 (four) hours as needed for Diarrhea. [facility] 25 mg suppository 2021-11 0-05 00:00: 00 Yes [id number] 25mg Insert 1 Suppositor y into rectum every 4 (four) hours as needed for Nausea and Vomiting (N/V). [facility] azine 10 mg tablet 2021-11 0-05 00:00: 00 Yes [id number] 10mg Take 1 tablet by mouth every 6 (six) hours as needed for Nausea and Vomiting (N/V). [facility] loperamide 2 mg capsule 2021-11 0-05 00:00: 00 Yes [id number] 2mg Take 1 capsule by mouth every 4 (four) hours as needed for Diarrhea. [facility] e 25 mg suppository 2021-11 0-05 00:00: 00 Yes [id number] 25mg Insert 1 Suppositor y into rectum every 4 (four) hours as needed for Nausea and Vomiting (N/V). [facility] azine 10 mg tablet 2021-11 0-05 00:00: 00 Yes [id number] 10mg Take 1 tablet by mouth every 6 (six) hours as needed for Nausea and Vomiting (N/V). [facility] loperamide 2 mg capsule 2021-11 0-05 00:00: 00 Yes [id number] 2mg Take 1 capsule by mouth every 4 (four) hours as needed for Diarrhea. [facility]ETH[facility] e 25 mg suppository 2021-11 0 00:00: 00 Yes [id number] 25mg Insert 1 Suppositor y into rectum every 4 (four) hours as needed for Nausea and Vomiting (N/V). [facility]per azine 10 mg tablet 2021-11 0- 00:00: 00 Yes [id number] 10mg Take 1 tablet by mouth every 6 (six) hours as needed for Nausea and Vomiting (N/V). [facility] loperamide 2 mg capsule 2021-11 0-05 00:00: 00 Yes [id number] 2mg Take 1 capsule by mouth every 4 (four) hours as needed for Diarrhea. [facility]ETH[facility] e 25 mg suppository 2021-11 0-05 00:00: 00 Yes [id number] 25mg Insert 1 Suppositor y into rectum every 4 (four) hours as needed for Nausea and Vomiting (N/V). [facility]LORper azine 10 mg tablet 2021-11 0-05 00:00: 00 Yes [id number] 10mg Take 1 tablet by mouth every 6 (six) hours as needed for Nausea and Vomiting (N/V). [facility] loperamide 2 mg capsule 2021-11 0-05 00:00: 00 Yes [id number] 2mg Take 1 capsule by mouth every 4 (four) hours as needed for Diarrhea. [facility] e 25 mg suppository 2021-11 0-05 00:00: 00 Yes [id number] 25mg Insert 1 Suppositor y into rectum every 4 (four) hours as needed for Nausea and Vomiting (N/V). [facility]LORper azine 10 mg tablet 2021-11 0-05 00:00: 00 Yes [id number] 10mg Take 1 tablet by mouth every 6 (six) hours as needed for Nausea and Vomiting (N/V). [facility] loperamide 2 mg capsule 2021-11 0-05 00:00: 00 Yes [id number] 2mg Take 1 capsule by mouth every 4 (four) hours as needed for Diarrhea. [facility] e 25 mg suppository 2021-11 0 00:00: 00 Yes [id number] 25mg Insert 1 Suppositor y into rectum every 4 (four) hours as needed for Nausea and Vomiting (N/V). [facility]CHLORper azine 10 mg tablet 2021-11 0 00:00: 00 Yes [id number] 10mg Take 1 tablet by mouth every 6 (six) hours as needed for Nausea and Vomiting (N/V). [facility] loperamide 2 mg capsule 2021-11 0 00:00: 00 Yes [id number] 2mg Take 1 capsule by mouth every 4 (four) hours as needed for Diarrhea. [facility] 25 mg suppository 2021-11 0 00:00: 00 Yes [id number] 25mg Insert 1 Suppositor y into rectum every 4 (four) hours as needed for Nausea and Vomiting (N/V). [facility]OR[facility] azine 10 mg tablet 2021-11 0-05 00:00: 00 Yes [id number] 10mg Take 1 tablet by mouth every 6 (six) hours as needed for Nausea and Vomiting (N/V). [facility] loperamide 2 mg capsule 2021-11 0-05 00:00: 00 Yes [id number] 2mg Take 1 capsule by mouth every 4 (four) hours as needed for Diarrhea. [facility] 25 mg suppository 2021-11 0-05 00:00: 00 Yes [id number] 25mg Insert 1 Suppositor y into rectum every 4 (four) hours as needed for Nausea and Vomiting (N/V). [facility]ORper azine 10 mg tablet 2021-11 0-05 00:00: 00 Yes [id number] 10mg Take 1 tablet by mouth every 6 (six) hours as needed for Nausea and Vomiting (N/V). [facility] loperamide 2 mg capsule 2021-11 0-05 00:00: 00 Yes [id number] 2mg Take 1 capsule by mouth every 4 (four) hours as needed for Diarrhea. [facility] 25 mg suppository 2021-11 0-05 00:00: 00 Yes [id number] 25mg Insert 1 Suppositor y into rectum every 4 (four) hours as needed for Nausea and Vomiting (N/V). [facility]OR[facility] azine 10 mg tablet 2021-11 0-05 00:00: 00 Yes [id number] 10mg Take 1 tablet by mouth every 6 (six) hours as needed for Nausea and Vomiting (N/V). [facility] loperamide 2 mg capsule 2021-11 0-05 00:00: 00 Yes [id number] 2mg Take 1 capsule by mouth every 4 (four) hours as needed for Diarrhea. [facility] 25 mg suppository 2021-11 0-05 00:00: 00 Yes [id number] 25mg Insert 1 Suppositor y into rectum every 4 (four) hours as needed for Nausea and Vomiting (N/V). [facility] azine 10 mg tablet 2021-11 0-05 00:00: 00 Yes [id number] 10mg Take 1 tablet by mouth every 6 (six) hours as needed for Nausea and Vomiting (N/V). [facility] loperamide 2 mg capsule 2021-11 0-05 00:00: 00 Yes [id number] 2mg Take 1 capsule by mouth every 4 (four) hours as needed for Diarrhea. [facility] 25 mg suppository 2021-11 0-05 00:00: 00 Yes [id number] 25mg Insert 1 Suppositor y into rectum every 4 (four) hours as needed for Nausea and Vomiting (N/V). [facility] azine 10 mg tablet 2021-11 0-05 00:00: 00 Yes [id number] 10mg Take 1 tablet by mouth every 6 (six) hours as needed for Nausea and Vomiting (N/V). [facility] loperamide 2 mg capsule 2021-11 0-05 00:00: 00 Yes [id number] 2mg Take 1 capsule by mouth every 4 (four) hours as needed for Diarrhea. [facility] 25 mg suppository 2021-11 0-05 00:00: 00 Yes [id number] 25mg Insert 1 Suppositor y into rectum every 4 (four) hours as needed for Nausea and Vomiting (N/V). [facility]per azine 10 mg tablet 2021-11 0-05 00:00: 00 Yes [id number] 10mg Take 1 tablet by mouth every 6 (six) hours as needed for Nausea and Vomiting (N/V). [facility] loperamide 2 mg capsule 2021-11 0-05 00:00: 00 Yes [id number] 2mg Take 1 capsule by mouth every 4 (four) hours as needed for Diarrhea. [facility] 25 mg suppository 2021-11 0-05 00:00: 00 Yes [id number] 25mg Insert 1 Suppositor y into rectum every 4 (four) hours as needed for Nausea and Vomiting (N/V). [facility] azine 10 mg tablet 2021-11 0-05 00:00: 00 Yes [id number] 10mg Take 1 tablet by mouth every 6 (six) hours as needed for Nausea and Vomiting (N/V). [facility] loperamide 2 mg capsule 2021-11 0-05 00:00: 00 Yes [id number] 2mg Take 1 capsule by mouth every 4 (four) hours as needed for Diarrhea. [facility] 25 mg suppository 2021-11 0-05 00:00: 00 Yes [id number] 25mg Insert 1 Suppositor y into rectum every 4 (four) hours as needed for Nausea and Vomiting (N/V). [facility] azine 10 mg tablet 2021-11 0-05 00:00: 00 Yes [id number] 10mg Take 1 tablet by mouth every 6 (six) hours as needed for Nausea and Vomiting (N/V). [facility] loperamide 2 mg capsule 2021-11 0-05 00:00: 00 Yes [id number] 2mg Take 1 capsule by mouth every 4 (four) hours as needed for Diarrhea. [facility] 25 mg suppository 2021-11 0-05 00:00: 00 Yes [id number] 25mg Insert 1 Suppositor y into rectum every 4 (four) hours as needed for Nausea and Vomiting (N/V). [facility] azine 10 mg tablet 2021-11 0-05 00:00: 00 Yes [id number] 10mg Take 1 tablet by mouth every 6 (six) hours as needed for Nausea and Vomiting (N/V). [facility] loperamide 2 mg capsule 2021-11 0-05 00:00: 00 Yes [id number] 2mg Take 1 capsule by mouth every 4 (four) hours as needed for Diarrhea. [facility] 25 mg suppository 2021-11 0-05 00:00: 00 Yes [id number] 25mg Insert 1 Suppositor y into rectum every 4 (four) hours as needed for Nausea and Vomiting (N/V). [facility] azine 10 mg tablet 2021-11 0-05 00:00: 00 Yes [id number] 10mg Take 1 tablet by mouth every 6 (six) hours as needed for Nausea and Vomiting (N/V). [facility] loperamide 2 mg capsule 2021-11 0-05 00:00: 00 Yes [id number] 2mg Take 1 capsule by mouth every 4 (four) hours as needed for Diarrhea. [facility] 25 mg suppository 2021-11 0-05 00:00: 00 Yes [id number] 25mg Insert 1 Suppositor y into rectum every 4 (four) hours as needed for Nausea and Vomiting (N/V). [facility] azine 10 mg tablet 2021-11 0-05 00:00: 00 Yes [id number] 10mg Take 1 tablet by mouth every 6 (six) hours as needed for Nausea and Vomiting (N/V). [facility] loperamide 2 mg capsule 2021-11 0-05 00:00: 00 Yes [id number] 2mg Take 1 capsule by mouth every 4 (four) hours as needed for Diarrhea. [facility] 25 mg suppository 2021-11 0-05 00:00: 00 Yes [id number] 25mg Insert 1 Suppositor y into rectum every 4 (four) hours as needed for Nausea and Vomiting (N/V). [facility] azine 10 mg tablet 2021-11 0-05 00:00: 00 Yes [id number] 10mg Take 1 tablet by mouth every 6 (six) hours as needed for Nausea and Vomiting (N/V). [facility] loperamide 2 mg capsule 2021-11 0-05 00:00: 00 Yes [id number] 2mg Take 1 capsule by mouth every 4 (four) hours as needed for Diarrhea. [facility] 25 mg suppository 2021-11 0-05 00:00: 00 Yes [id number] 25mg Insert 1 Suppositor y into rectum every 4 (four) hours as needed for Nausea and Vomiting (N/V). [facility] azine 10 mg tablet 2021-11 0-05 00:00: 00 Yes [id number] 10mg Take 1 tablet by mouth every 6 (six) hours as needed for Nausea and Vomiting (N/V). [facility] loperamide 2 mg capsule 2021-11 0-05 00:00: 00 Yes [id number] 2mg Take 1 capsule by mouth every 4 (four) hours as needed for Diarrhea. [facility] 25 mg suppository 2021-11 0-05 00:00: 00 Yes [id number] 25mg Insert 1 Suppositor y into rectum every 4 (four) hours as needed for Nausea and Vomiting (N/V). [facility] azine 10 mg tablet 2021-11 0-05 00:00: 00 Yes [id number] 10mg Take 1 tablet by mouth every 6 (six) hours as needed for Nausea and Vomiting (N/V). [facility] loperamide 2 mg capsule 2021-11 0-05 00:00: 00 Yes [id number] 2mg Take 1 capsule by mouth every 4 (four) hours as needed for Diarrhea. [facility] 25 mg suppository 2021-11 0-05 00:00: 00 Yes [id number] 25mg Insert 1 Suppositor y into rectum every 4 (four) hours as needed for Nausea and Vomiting (N/V). [facility] azine 10 mg tablet 2021-11 0-05 00:00: 00 Yes [id number] 10mg Take 1 tablet by mouth every 6 (six) hours as needed for Nausea and Vomiting (N/V). [facility] loperamide 2 mg capsule 2021-11 0-05 00:00: 00 Yes [id number] 2mg Take 1 capsule by mouth every 4 (four) hours as needed for Diarrhea. [facility] 25 mg suppository 2021-11 0-05 00:00: 00 Yes [id number] 25mg Insert 1 Suppositor y into rectum every 4 (four) hours as needed for Nausea and Vomiting (N/V). [facility] azine 10 mg tablet 2021-11 0-05 00:00: 00 Yes [id number] 10mg Take 1 tablet by mouth every 6 (six) hours as needed for Nausea and Vomiting (N/V). [facility] loperamide 2 mg capsule 2021-11 0-05 00:00: 00 Yes [id number] 2mg Take 1 capsule by mouth every 4 (four) hours as needed for Diarrhea. [facility] 25 mg suppository 2021-11 0-05 00:00: 00 Yes [id number] 25mg Insert 1 Suppositor y into rectum every 4 (four) hours as needed for Nausea and Vomiting (N/V). [facility] azine 10 mg tablet 2021-11 0-05 00:00: 00 Yes [id number] 10mg Take 1 tablet by mouth every 6 (six) hours as needed for Nausea and Vomiting (N/V). [facility] loperamide 2 mg capsule 2021-11 0-05 00:00: 00 Yes [id number] 2mg Take 1 capsule by mouth every 4 (four) hours as needed for Diarrhea. [facility] 25 mg suppository 2021-11 0-05 00:00: 00 Yes [id number] 25mg Insert 1 Suppositor y into rectum every 4 (four) hours as needed for Nausea and Vomiting (N/V). [facility] azine 10 mg tablet 2021-11 0-05 00:00: 00 Yes [id number] 10mg Take 1 tablet by mouth every 6 (six) hours as needed for Nausea and Vomiting (N/V). [facility] loperamide 2 mg capsule 2021-11 0-05 00:00: 00 Yes [id number] 2mg Take 1 capsule by mouth every 4 (four) hours as needed for Diarrhea. [facility] proMETHazin e 25 mg suppository 2021-11 0-05 00:00: 00 Yes [id number] 25mg Insert 1 Suppositor y into rectum every 4 (four) hours as needed for Nausea and Vomiting (N/V). [facility] proCHLORper azine 10 mg tablet 2021-11 0-05 00:00: 00 Yes [id number] 10mg Take 1 tablet by mouth every 6 (six) hours as needed for Nausea and Vomiting (N/V). [facility] loperamide 2 mg capsule 2021-11 0-05 00:00: 00 Yes [id number] 2mg Take 1 capsule by mouth every 4 (four) hours as needed for Diarrhea. [facility] proMETHazin e 25 mg suppository 2021-11 0-05 00:00: 00 Yes [id number] 25mg Insert 1 Suppositor y into rectum every 4 (four) hours as needed for Nausea and Vomiting (N/V). [facility] proCHLORper azine 10 mg tablet 2021- 0-05 00:00: 00 Yes [id number] 10mg Take 1 tablet by mouth every 6 (six) hours as needed for Nausea and Vomiting (N/V). [facility] loperamide 2 mg capsule 2021-11 005 00:00: 00 Yes [id number] 2mg Take 1 capsule by mouth every 4 (four) hours as needed for Diarrhea. [facility] proMETHazin e 25 mg suppository 2021-11 0 00:00: 00 Yes [id number] 25mg Insert 1 Suppositor y into rectum every 4 (four) hours as needed for Nausea and Vomiting (N/V). [facility] proCHLORper azine 10 mg tablet 2021-11 0 00:00: 00 Yes [id number] 10mg Take 1 tablet by mouth every 6 (six) hours as needed for Nausea and Vomiting (N/V). [facility] loperamide 2 mg capsule 2021-11 0 00:00: 00 Yes [id number] 2mg Take 1 capsule by mouth every 4 (four) hours as needed for Diarrhea. [facility] proCHLORper azine 10 mg tablet 2021-11 0 00:00: 00 Yes [id number] 10mg Take 1 tablet by mouth every 6 (six) hours as needed for Nausea and Vomiting (N/V). [facility] loperamide 2 mg capsule 2021-11 0 00:00: 00 Yes [id number] 2mg Take 1 capsule by mouth every 4 (four) hours as needed for Diarrhea. [facility] proCHLORper azine 10 mg tablet 2021-11 0-05 00:00: 00 Yes [id number] 10mg Take 1 tablet by mouth every 6 (six) hours as needed for Nausea and Vomiting (N/V). [facility] loperamide 2 mg capsule 2021-11 0-05 00:00: 00 Yes [id number] 2mg Take 1 capsule by mouth every 4 (four) hours as needed for Diarrhea. [facility] proCHLORper azine 10 mg tablet 2021- 0-05 00:00: 00 Yes [id number] 10mg Take 1 tablet by mouth every 6 (six) hours as needed for Nausea and Vomiting (N/V). [facility] loperamide 2 mg capsule 2021-1 0-05 00:00: 00 Yes [id number] 2mg Take 1 capsule by mouth every 4 (four) hours as needed for Diarrhea. [facility] proCHLORper azine 10 mg tablet 2021- 0-05 00:00: 00 Yes [id number] 10mg Take 1 tablet by mouth every 6 (six) hours as needed for Nausea and Vomiting (N/V). [facility] loperamide 2 mg capsule 2021- 0-05 00:00: 00 Yes [id number] 2mg Take 1 capsule by mouth every 4 (four) hours as needed for Diarrhea. [facility] proCHLORper azine 10 mg tablet 2021- 0-05 00:00: 00 Yes [id number] 10mg Take 1 tablet by mouth every 6 (six) hours as needed for Nausea and Vomiting (N/V). [facility] loperamide 2 mg capsule 2021- 0-05 00:00: 00 Yes [id number] 2mg Take 1 capsule by mouth every 4 (four) hours as needed for Diarrhea. [facility] proCHLORper azine 10 mg tablet 2021- 0-05 00:00: 00 Yes [id number] 10mg Take 1 tablet by mouth every 6 (six) hours as needed for Nausea and Vomiting (N/V). [facility] loperamide 2 mg capsule 2021- 0-05 00:00: 00 Yes [id number] 2mg Take 1 capsule by mouth every 4 (four) hours as needed for Diarrhea. [facility] proCHLORper azine 10 mg tablet 2021-1 0-05 00:00: 00 Yes [id number] 10mg Take 1 tablet by mouth every 6 (six) hours as needed for Nausea and Vomiting (N/V). [facility] loperamide 2 mg capsule 2021- 0-05 00:00: 00 Yes [id number] 2mg Take 1 capsule by mouth every 4 (four) hours as needed for Diarrhea. [facility] proCHLORper azine 10 mg tablet 2021- 0-05 00:00: 00 Yes [id number] 10mg Take 1 tablet by mouth every 6 (six) hours as needed for Nausea and Vomiting (N/V). [facility] loperamide 2 mg capsule 2021-1 0-05 00:00: 00 Yes [id number] 2mg Take 1 capsule by mouth every 4 (four) hours as needed for Diarrhea. [facility] proCHLORper azine 10 mg tablet 2021- 0-05 00:00: 00 Yes [id number] 10mg Take 1 tablet by mouth every 6 (six) hours as needed for Nausea and Vomiting (N/V). [facility] loperamide 2 mg capsule 2021- 0-05 00:00: 00 Yes [id number] 2mg Take 1 capsule by mouth every 4 (four) hours as needed for Diarrhea. [facility] proCHLORper azine 10 mg tablet 2021- 0-05 00:00: 00 Yes [id number] 10mg Take 1 tablet by mouth every 6 (six) hours as needed for Nausea and Vomiting (N/V). [facility] loperamide 2 mg capsule 2021- 0-05 00:00: 00 Yes [id number] 2mg Take 1 capsule by mouth every 4 (four) hours as needed for Diarrhea. [facility] proCHLORper azine 10 mg tablet 2021- 0-05 00:00: 00 Yes [id number] 10mg Take 1 tablet by mouth every 6 (six) hours as needed for Nausea and Vomiting (N/V). [facility] loperamide 2 mg capsule 2021-1 0-05 00:00: 00 Yes [id number] 2mg Take 1 capsule by mouth every 4 (four) hours as needed for Diarrhea. [facility] proCHLORper azine 10 mg tablet 2021-1 0-05 00:00: 00 Yes [id number] 10mg Take 1 tablet by mouth every 6 (six) hours as needed for Nausea and Vomiting (N/V). [facility] loperamide 2 mg capsule 2021-1 0-05 00:00: 00 Yes [id number] 2mg Take 1 capsule by mouth every 4 (four) hours as needed for Diarrhea. [facility] proCHLORper azine 10 mg tablet 2021- 0-05 00:00: 00 Yes [id number] 10mg Take 1 tablet by mouth every 6 (six) hours as needed for Nausea and Vomiting (N/V). [facility] loperamide 2 mg capsule 2021- 0-05 00:00: 00 Yes [id number] 2mg Take 1 capsule by mouth every 4 (four) hours as needed for Diarrhea. [facility] proCHLORper azine 10 mg tablet 2021- 0-05 00:00: 00 Yes [id number] 10mg Take 1 tablet by mouth every 6 (six) hours as needed for Nausea and Vomiting (N/V). [facility] loperamide 2 mg capsule 2021- 0-05 00:00: 00 Yes [id number] 2mg Take 1 capsule by mouth every 4 (four) hours as needed for Diarrhea. [facility] proCHLORper azine 10 mg tablet 2021- 0-05 00:00: 00 Yes [id number] 10mg Take 1 tablet by mouth every 6 (six) hours as needed for Nausea and Vomiting (N/V). [facility] loperamide 2 mg capsule 2021- 0-05 00:00: 00 Yes [id number] 2mg Take 1 capsule by mouth every 4 (four) hours as needed for Diarrhea. [facility] proCHLORper azine 10 mg tablet 2021- 0-05 00:00: 00 Yes [id number] 10mg Take 1 tablet by mouth every 6 (six) hours as needed for Nausea and Vomiting (N/V). [facility] loperamide 2 mg capsule 2021- 0-05 00:00: 00 Yes [id number] 2mg Take 1 capsule by mouth every 4 (four) hours as needed for Diarrhea. [facility] proCHLORper azine 10 mg tablet 2021- 0-05 00:00: 00 Yes [id number] 10mg Take 1 tablet by mouth every 6 (six) hours as needed for Nausea and Vomiting (N/V). [facility] loperamide 2 mg capsule 2021- 0-05 00:00: 00 Yes [id number] 2mg Take 1 capsule by mouth every 4 (four) hours as needed for Diarrhea. [facility] proCHLORper azine 10 mg tablet 2021-1 0-05 00:00: 00 Yes [id number] 10mg Take 1 tablet by mouth every 6 (six) hours as needed for Nausea and Vomiting (N/V). [facility] loperamide 2 mg capsule 2021- 0-05 00:00: 00 Yes [id number] 2mg Take 1 capsule by mouth every 4 (four) hours as needed for Diarrhea. [facility] proCHLORper azine 10 mg tablet 2021- 0-05 00:00: 00 Yes [id number] 10mg Take 1 tablet by mouth every 6 (six) hours as needed for Nausea and Vomiting (N/V). [facility] loperamide 2 mg capsule 2021- 0-05 00:00: 00 Yes [id number] 2mg Take 1 capsule by mouth every 4 (four) hours as needed for Diarrhea. [facility] proCHLORper azine 10 mg tablet 2021- 0-05 00:00: 00 Yes [id number] 10mg Take 1 tablet by mouth every 6 (six) hours as needed for Nausea and Vomiting (N/V). [facility] loperamide 2 mg capsule 2021- 0-05 00:00: 00 Yes [id number] 2mg Take 1 capsule by mouth every 4 (four) hours as needed for Diarrhea. [facility] proCHLORper azine 10 mg tablet 2021-1 0-05 00:00: 00 Yes [id number] 10mg Take 1 tablet by mouth every 6 (six) hours as needed for Nausea and Vomiting (N/V). [facility] loperamide 2 mg capsule 2021-1 0-05 00:00: 00 Yes [id number] 2mg Take 1 capsule by mouth every 4 (four) hours as needed for Diarrhea. [facility] proCHLORper azine 10 mg tablet 2021-1 0-05 00:00: 00 Yes [id number] 10mg Take 1 tablet by mouth every 6 (six) hours as needed for Nausea and Vomiting (N/V). [facility] loperamide 2 mg capsule 2022-1 0-05 00:00: 00 Yes [id number] 2mg Take 1 capsule by mouth every 4 (four) hours as needed for Diarrhea. [facility] proCHLORper azine 10 mg tablet 2021-1 0-05 00:00: 00 Yes [id number] 10mg Take 1 tablet by mouth every 6 (six) hours as needed for Nausea and Vomiting (N/V). [facility] loperamide 2 mg capsule 2021-1 0-05 00:00: 00 Yes [id number] 2mg Take 1 capsule by mouth every 4 (four) hours as needed for Diarrhea. [facility] proCHLORper azine 10 mg tablet 2021-1 0-05 00:00: 00 Yes [id number] 10mg Take 1 tablet by mouth every 6 (six) hours as needed for Nausea and Vomiting (N/V). [facility] loperamide 2 mg capsule 2021-1 0-05 00:00: 00 Yes [id number] 2mg Take 1 capsule by mouth every 4 (four) hours as needed for Diarrhea. [facility] proCHLORper azine 10 mg tablet 2021- 0-05 00:00: 00 Yes [id number] 10mg Take 1 tablet by mouth every 6 (six) hours as needed for Nausea and Vomiting (N/V). [facility] loperamide 2 mg capsule 2021-1 0-05 00:00: 00 Yes [id number] 2mg Take 1 capsule by mouth every 4 (four) hours as needed for Diarrhea. [facility] proCHLORper azine 10 mg tablet 2021-1 0-05 00:00: 00 Yes [id number] 10mg Take 1 tablet by mouth every 6 (six) hours as needed for Nausea and Vomiting (N/V). [facility] loperamide 2 mg capsule 2021-1 0-05 00:00: 00 Yes [id number] 2mg Take 1 capsule by mouth every 4 (four) hours as needed for Diarrhea. [facility] proCHLORper azine 10 mg tablet 2021-1 0-05 00:00: 00 Yes [id number] 10mg Take 1 tablet by mouth every 6 (six) hours as needed for Nausea and Vomiting (N/V). [facility] loperamide 2 mg capsule 2021- 0-05 00:00: 00 Yes [id number] 2mg Take 1 capsule by mouth every 4 (four) hours as needed for Diarrhea. [facility] proCHLORper azine 10 mg tablet 2021- 0-05 00:00: 00 Yes [id number] 10mg Take 1 tablet by mouth every 6 (six) hours as needed for Nausea and Vomiting (N/V). [facility] loperamide 2 mg capsule 2021- 0-05 00:00: 00 Yes [id number] 2mg Take 1 capsule by mouth every 4 (four) hours as needed for Diarrhea. [facility] proCHLORper azine 10 mg tablet 2021- 0-05 00:00: 00 Yes [id number] 10mg Take 1 tablet by mouth every 6 (six) hours as needed for Nausea and Vomiting (N/V). [facility] loperamide 2 mg capsule 2021- 0-05 00:00: 00 Yes [id number] 2mg Take 1 capsule by mouth every 4 (four) hours as needed for Diarrhea. [facility] proCHLORper azine 10 mg tablet 2021- 0-05 00:00: 00 Yes [id number] 10mg Take 1 tablet by mouth every 6 (six) hours as needed for Nausea and Vomiting (N/V). [facility] loperamide 2 mg capsule 2021- 0-05 00:00: 00 Yes [id number] 2mg Take 1 capsule by mouth every 4 (four) hours as needed for Diarrhea. [facility] proCHLORper azine 10 mg tablet 2021- 0-05 00:00: 00 Yes [id number] 10mg Take 1 tablet by mouth every 6 (six) hours as needed for Nausea and Vomiting (N/V). [facility] loperamide 2 mg capsule 2021- 0-05 00:00: 00 Yes [id number] 2mg Take 1 capsule by mouth every 4 (four) hours as needed for Diarrhea. [facility] proCHLORper azine 10 mg tablet 2021-1 0-05 00:00: 00 Yes [id number] 10mg Take 1 tablet by mouth every 6 (six) hours as needed for Nausea and Vomiting (N/V). [facility] loperamide 2 mg capsule 2021-1 0-05 00:00: 00 Yes [id number] 2mg Take 1 capsule by mouth every 4 (four) hours as needed for Diarrhea. [facility] proCHLORper azine 10 mg tablet 2021-1 0-05 00:00: 00 Yes [id number] 10mg Take 1 tablet by mouth every 6 (six) hours as needed for Nausea and Vomiting (N/V). [facility] loperamide 2 mg capsule 2021-1 0-05 00:00: 00 Yes [id number] 2mg Take 1 capsule by mouth every 4 (four) hours as needed for Diarrhea. [facility] proCHLORper azine 10 mg tablet 2021- 0-05 00:00: 00 Yes [id number] 10mg Take 1 tablet by mouth every 6 (six) hours as needed for Nausea and Vomiting (N/V). [facility] loperamide 2 mg capsule 2021-1 0-05 00:00: 00 Yes [id number] 2mg Take 1 capsule by mouth every 4 (four) hours as needed for Diarrhea. [facility] proCHLORper azine 10 mg tablet 2021-1 0-05 00:00: 00 Yes [id number] 10mg Take 1 tablet by mouth every 6 (six) hours as needed for Nausea and Vomiting (N/V). [facility] loperamide 2 mg capsule 2021-1 0-05 00:00: 00 Yes [id number] 2mg Take 1 capsule by mouth every 4 (four) hours as needed for Diarrhea. [facility] proCHLORper azine 10 mg tablet 2021-1 0-05 00:00: 00 Yes [id number] 10mg Take 1 tablet by mouth every 6 (six) hours as needed for Nausea and Vomiting (N/V). [facility] loperamide 2 mg capsule 2021-1 0-05 00:00: 00 Yes [id number] 2mg Take 1 capsule by mouth every 4 (four) hours as needed for Diarrhea. [facility] proCHLORper azine 10 mg tablet 2021- 0-05 00:00: 00 Yes [id number] 10mg Take 1 tablet by mouth every 6 (six) hours as needed for Nausea and Vomiting (N/V). [facility] loperamide 2 mg capsule 2021-1 0-05 00:00: 00 Yes [id number] 2mg Take 1 capsule by mouth every 4 (four) hours as needed for Diarrhea. [facility] proCHLORper azine 10 mg tablet 2021- 0-05 00:00: 00 Yes [id number] 10mg Take 1 tablet by mouth every 6 (six) hours as needed for Nausea and Vomiting (N/V). [facility] loperamide 2 mg capsule 2021-1 0-05 00:00: 00 Yes [id number] 2mg Take 1 capsule by mouth every 4 (four) hours as needed for Diarrhea. [facility] loperamide 2 mg capsule 2021-1 0-05 00:00: 00 Yes [id number] 2mg Take 1 capsule by mouth every 4 (four) hours as needed for Diarrhea. [facility] loperamide 2 mg capsule 2021-1 0-05 00:00: 00 Yes [id number] 2mg Take 1 capsule by mouth every 4 (four) hours as needed for Diarrhea. [facility] loperamide 2 mg capsule 2021-1 0-05 00:00: 00 Yes [id number] 2mg Take 1 capsule by mouth every 4 (four) hours as needed for Diarrhea. [facility] loperamide 2 mg capsule 2-1 0-05 00:00: 00 Yes [id number] 2mg Take 1 capsule by mouth every 4 (four) hours as needed for Diarrhea. [facility] loperamide 2 mg capsule 2-1 0-05 00:00: 00 Yes [id number] 2mg Take 1 capsule by mouth every 4 (four) hours as needed for Diarrhea. [facility] loperamide 2 mg capsule 2-1 0-05 00:00: 00 Yes [id number] 2mg Take 1 capsule by mouth every 4 (four) hours as needed for Diarrhea. [facility] loperamide 2 mg capsule 2021-1 0-05 00:00: 00 Yes [id number] 2mg Take 1 capsule by mouth every 4 (four) hours as needed for Diarrhea. [facility] loperamide 2 mg capsule 2-1 0-05 00:00: 00 Yes [id number] 2mg Take 1 capsule by mouth every 4 (four) hours as needed for Diarrhea. [facility] loperamide 2 mg capsule 2-1 0-05 00:00: 00 Yes [id number] 2mg Take 1 capsule by mouth every 4 (four) hours as needed for Diarrhea. [facility] loperamide 2 mg capsule 2-1 0-05 00:00: 00 Yes [id number] 2mg Take 1 capsule by mouth every 4 (four) hours as needed for Diarrhea. [facility] loperamide 2 mg capsule 2021-1 0-05 00:00: 00 Yes [id number] 2mg Take 1 capsule by mouth every 4 (four) hours as needed for Diarrhea. [facility] loperamide 2 mg capsule 2-1 0-05 00:00: 00 Yes [id number] 2mg Take 1 capsule by mouth every 4 (four) hours as needed for Diarrhea. [facility] loperamide 2 mg capsule 2-1 0-05 00:00: 00 Yes [id number] 2mg Take 1 capsule by mouth every 4 (four) hours as needed for Diarrhea. [facility] loperamide 2 mg capsule 2-1 0-05 00:00: 00 Yes [id number] 2mg Take 1 capsule by mouth every 4 (four) hours as needed for Diarrhea. [facility] loperamide 2 mg capsule 2-1 0-05 00:00: 00 Yes [id number] 2mg Take 1 capsule by mouth every 4 (four) hours as needed for Diarrhea. [facility] loperamide 2 mg capsule 2-1 0-05 00:00: 00 Yes [id number] 2mg Take 1 capsule by mouth every 4 (four) hours as needed for Diarrhea. [facility] loperamide 2 mg capsule 2-1 0-05 00:00: 00 Yes [id number] 2mg Take 1 capsule by mouth every 4 (four) hours as needed for Diarrhea. [facility] loperamide 2 mg capsule 2-1 0-05 00:00: 00 Yes [id number] 2mg Take 1 capsule by mouth every 4 (four) hours as needed for Diarrhea. [facility] loperamide 2 mg capsule 2-1 0-05 00:00: 00 Yes [id number] 2mg Take 1 capsule by mouth every 4 (four) hours as needed for Diarrhea. [facility] loperamide 2 mg capsule 2-1 0-05 00:00: 00 Yes [id number] 2mg Take 1 capsule by mouth every 4 (four) hours as needed for Diarrhea. [facility] loperamide 2 mg capsule 2-1 0-05 00:00: 00 Yes [id number] 2mg Take 1 capsule by mouth every 4 (four) hours as needed for Diarrhea. [facility] loperamide 2 mg capsule 2-1 0-05 00:00: 00 Yes [id number] 2mg Take 1 capsule by mouth every 4 (four) hours as needed for Diarrhea. [facility] loperamide 2 mg capsule 2-1 0-05 00:00: 00 Yes [id number] 2mg Take 1 capsule by mouth every 4 (four) hours as needed for Diarrhea. [facility] loperamide 2 mg capsule 2-1 0-05 00:00: 00 Yes [id number] 2mg Take 1 capsule by mouth every 4 (four) hours as needed for Diarrhea. [facility] loperamide 2 mg capsule 2-1 0-05 00:00: 00 Yes [id number] 2mg Take 1 capsule by mouth every 4 (four) hours as needed for Diarrhea. [facility] loperamide 2 mg capsule 2-1 0-05 00:00: 00 Yes [id number] 2mg Take 1 capsule by mouth every 4 (four) hours as needed for Diarrhea. [facility] loperamide 2 mg capsule 2-1 0-05 00:00: 00 Yes [id number] 2mg Take 1 capsule by mouth every 4 (four) hours as needed for Diarrhea. [facility] loperamide 2 mg capsule 2-1 0-05 00:00: 00 Yes [id number] 2mg Take 1 capsule by mouth every 4 (four) hours as needed for Diarrhea. [facility] loperamide 2 mg capsule 2-1 0-05 00:00: 00 Yes [id number] 2mg Take 1 capsule by mouth every 4 (four) hours as needed for Diarrhea. [facility] loperamide 2 mg capsule 2-1 0-05 00:00: 00 Yes [id number] 2mg Take 1 capsule by mouth every 4 (four) hours as needed for Diarrhea. [facility] loperamide 2 mg capsule 2021-1 0-05 00:00: 00 Yes [id number] 2mg Take 1 capsule by mouth every 4 (four) hours as needed for Diarrhea. [facility] loperamide 2 mg capsule 2021-1 0-05 00:00: 00 Yes [id number] 2mg Take 1 capsule by mouth every 4 (four) hours as needed for Diarrhea. [facility] loperamide 2 mg capsule 2-1 0-05 00:00: 00 Yes [id number] 2mg Take 1 capsule by mouth every 4 (four) hours as needed for Diarrhea. [facility] loperamide 2 mg capsule 2021-1 0-05 00:00: 00 Yes [id number] 2mg Take 1 capsule by mouth every 4 (four) hours as needed for Diarrhea. [facility] loperamide 2 mg capsule 2-1 0-05 00:00: 00 Yes [id number] 2mg Take 1 capsule by mouth every 4 (four) hours as needed for Diarrhea. [facility] loperamide 2 mg capsule 2-1 0-05 00:00: 00 Yes [id number] 2mg Take 1 capsule by mouth every 4 (four) hours as needed for Diarrhea. [facility] loperamide 2 mg capsule 2-1 0-05 00:00: 00 Yes [id number] 2mg Take 1 capsule by mouth every 4 (four) hours as needed for Diarrhea. [facility] loperamide 2 mg capsule 2-1 0-05 00:00: 00 Yes [id number] 2mg Take 1 capsule by mouth every 4 (four) hours as needed for Diarrhea. [facility] loperamide 2 mg capsule 2022-1 0-05 00:00: 00 Yes [id number] 2mg Take 1 capsule by mouth every 4 (four) hours as needed for Diarrhea. [facility] loperamide 2 mg capsule 2021- 0-05 00:00: 00 Yes [id number] 2mg Take 1 capsule by mouth every 4 (four) hours as needed for Diarrhea. [facility] loperamide 2 mg capsule 2021- 0-05 00:00: 00 Yes [id number] 2mg Take 1 capsule by mouth every 4 (four) hours as needed for Diarrhea. [facility] loperamide 2 mg capsule 2021-11 0-05 00:00: 00 Yes [id number] 2mg Take 1 capsule by mouth every 4 (four) hours as needed for Diarrhea. [facility] loperamide 2 mg capsule 2021- 0- 00:00: 00 Yes [id number] 2mg Take 1 capsule by mouth every 4 (four) hours as needed for Diarrhea. [facility] loperamide 2 mg capsule 2021- 0-05 00:00: 00 Yes [id number] 2mg Take 1 capsule by mouth every 4 (four) hours as needed for Diarrhea. [facility] loperamide 2 mg capsule 2021- 0-05 00:00: 00 Yes [id number] 2mg Take 1 capsule by mouth every 4 (four) hours as needed for Diarrhea. [facility] loperamide 2 mg capsule 2021- 005 00:00: 00 Yes [id number] 2mg Take 1 capsule by mouth every 4 (four) hours as needed for Diarrhea. [facility] loperamide 2 mg capsule 2021-11 005 00:00: 00 Yes [id number] 2mg Take 1 capsule by mouth every 4 (four) hours as needed for Diarrhea. [facility] proMETHazin e 25 mg suppository 2021-11 0 00:00: 00 Yes [id number] 25mg Insert 1 Suppositor y into rectum every 4 (four) hours as needed for Nausea and Vomiting (N/V). [facility] proCHLORper azine 10 mg tablet 2021-11 0 00:00: 00 Yes [id number] 10mg Take 1 tablet by mouth every 6 (six) hours as needed for Nausea and Vomiting (N/V). [facility] loperamide 2 mg capsule 2-1 0-05 00:00: 00 02-26 00:00 :00 No [id number] 2mg Take 1 capsule by mouth every 4 (four) hours as needed for Diarrhea. [facility] loperamide 2 mg capsule 2021-1 0-05 00:00: 00 02-26 00:00 :00 No [id number] 2mg Take 1 capsule by mouth every 4 (four) hours as needed for Diarrhea. [facility] loperamide 2 mg capsule 2021-1 0-05 00:00: 00 02-26 00:00 :00 No [id number] 2mg Take 1 capsule by mouth every 4 (four) hours as needed for Diarrhea. [facility] loperamide 2 mg capsule 2021-1 0-05 00:00: 00 02-26 00:00 :00 No [id number] 2mg Take 1 capsule by mouth every 4 (four) hours as needed for Diarrhea. [facility] loperamide 2 mg capsule 2021-1 0-05 00:00: 00 02-26 00:00 :00 No [id number] 2mg Take 1 capsule by mouth every 4 (four) hours as needed for Diarrhea. [facility] loperamide 2 mg capsule 2021-1 0-05 00:00: 00 02-26 00:00 :00 No [id number] 2mg Take 1 capsule by mouth every 4 (four) hours as needed for Diarrhea. [facility] loperamide 2 mg capsule 2021-1 0-05 00:00: 00 02-26 00:00 :00 No [id number] 2mg Take 1 capsule by mouth every 4 (four) hours as needed for Diarrhea. [facility] loperamide 2 mg capsule 2-1 0-05 00:00: 00 02-26 00:00 :00 No [id number] 2mg Take 1 capsule by mouth every 4 (four) hours as needed for Diarrhea. [facility] proCHLORper azine 10 mg tablet 2021- 0-05 00:00: 00 12-17 00:00 :00 No [id number] 10mg Take 1 tablet by mouth every 6 (six) hours as needed for Nausea and Vomiting (N/V). [facility] proCHLORper azine 10 mg tablet 2021- 0-05 00:00: 00 12-17 00:00 :00 No [id number] 10mg Take 1 tablet by mouth every 6 (six) hours as needed for Nausea and Vomiting (N/V). [facility] proCHLORper azine 10 mg tablet 2021- 0-05 00:00: 00 12-17 00:00 :00 No [id number] 10mg Take 1 tablet by mouth every 6 (six) hours as needed for Nausea and Vomiting (N/V). [facility] proCHLORper azine 10 mg tablet 2021-11 0-05 00:00: 00 12-17 00:00 :00 No [id number] 10mg Take 1 tablet by mouth every 6 (six) hours as needed for Nausea and Vomiting (N/V). [facility] proCHLORper azine 10 mg tablet 2021- 0-05 00:00: 00 12-17 00:00 :00 No [id number] 10mg Take 1 tablet by mouth every 6 (six) hours as needed for Nausea and Vomiting (N/V). [facility] proCHLORper azine 10 mg tablet 2021- 0-05 00:00: 00 12-17 00:00 :00 No [id number] 10mg Take 1 tablet by mouth every 6 (six) hours as needed for Nausea and Vomiting (N/V). [facility] proCHLORper azine 10 mg tablet 2021- 0-05 00:00: 00 12-17 00:00 :00 No [id number] 10mg Take 1 tablet by mouth every 6 (six) hours as needed for Nausea and Vomiting (N/V). [facility] proMETHazin e 25 mg suppository 2021-11 0-05 00:00: 00 10-29 00:00 :00 No [id number] 25mg Insert 1 Suppositor y into rectum every 4 (four) hours as needed for Nausea and Vomiting (N/V). [facility] proMETHazin e 25 mg suppository 2021- 0-05 00:00: 00 10-29 00:00 :00 No [id number] 25mg Insert 1 Suppositor y into rectum every 4 (four) hours as needed for Nausea and Vomiting (N/V). [facility] proMETHazin e 25 mg suppository 2021- 0-05 00:00: 00 10-29 00:00 :00 No [id number] 25mg Insert 1 Suppositor y into rectum every 4 (four) hours as needed for Nausea and Vomiting (N/V). [facility] proMETHazin e 25 mg suppository 2021-11 0-05 00:00: 00 10-29 00:00 :00 No [id number] 25mg Insert 1 Suppositor y into rectum every 4 (four) hours as needed for Nausea and Vomiting (N/V). [facility] proMETHazin e 25 mg suppository 2021-11 0-05 00:00: 00 10-29 00:00 :00 No [id number] 25mg Insert 1 Suppositor y into rectum every 4 (four) hours as needed for Nausea and Vomiting (N/V). [facility] proMETHazin e 25 mg suppository 2021-11 0-05 00:00: 00 10-29 00:00 :00 No [id number] 25mg Insert 1 Suppositor y into rectum every 4 (four) hours as needed for Nausea and Vomiting (N/V). [facility] proMETHazin e 25 mg suppository 2021- 0-05 00:00: 00 10-29 00:00 :00 No [id number] 25mg Insert 1 Suppositor y into rectum every 4 (four) hours as needed for Nausea and Vomiting (N/V). [facility] proMETHazin e 25 mg suppository 2021- 0-05 00:00: 00 10-29 00:00 :00 No [id number] 25mg Insert 1 Suppositor y into rectum every 4 (four) hours as needed for Nausea and Vomiting (N/V). [facility] traMADoL 50 mg tablet 08-19 00:00: 00 Yes [id number] 50mg Take 1 tablet by mouth every 6 (six) hours as needed for Pain (scale 4-6) or Pain (scale 7-10). Indication s: acute pain [facility] traMADoL 50 mg tablet 08-19 00:00: 00 Yes [id number] 50mg Take 1 tablet by mouth every 6 (six) hours as needed for Pain (scale 4-6) or Pain (scale 7-10). Indication s: acute pain [facility] traMADoL 50 mg tablet 08-19 00:00: 00 Yes [id number] 50mg Take 1 tablet by mouth every 6 (six) hours as needed for Pain (scale 4-6) or Pain (scale 7-10). Indication s: acute pain [facility] traMADoL 50 mg tablet 08-19 00:00: 00 Yes [id number] 50mg Take 1 tablet by mouth every 6 (six) hours as needed for Pain (scale 4-6) or Pain (scale 7-10). Indication s: acute pain [facility] traMADoL 50 mg tablet 08-19 00:00: 00 Yes [id number] 50mg Take 1 tablet by mouth every 6 (six) hours as needed for Pain (scale 4-6) or Pain (scale 7-10). [facility]: [facility] 08-[facility] 00:00: 00 Yes [id number] 50mg Take 1 tablet by mouth every 6 (six) hours as needed for Pain (scale 4-6) or Pain (scale 7-10). Indication s: acute pain [facility] traMADoL 50 mg tablet 08-19 00:00: 00 Yes [id number] 50mg Take 1 tablet by mouth every 6 (six) hours as needed for Pain (scale 4-6) or Pain (scale 7-10). Indication s: acute pain [facility] traMADoL 50 mg tablet 08-19 00:00: 00 Yes [id number] 50mg Take 1 tablet by mouth every 6 (six) hours as needed for Pain (scale 4-6) or Pain (scale 7-10). Indication s: acute pain [facility] traMADoL 50 mg tablet 08-19 00:00: 00 Yes [id number] 50mg Take 1 tablet by mouth every 6 (six) hours as needed for Pain (scale 4-6) or Pain (scale 7-10). Indication [facility]: [facility] 08-19 00:00: 00 Yes [id number] 50mg Take 1 tablet by mouth every 6 (six) hours as needed for Pain (scale 4-6) or Pain (scale 7-10). Indication s: acute pain [facility] traMADoL 50 mg tablet 08-19 00:00: 00 Yes [id number] 50mg Take 1 tablet by mouth every 6 (six) hours as needed for Pain (scale 4-6) or Pain (scale 7-10). Indication s: acute pain [facility] traMADoL 50 mg tablet 08-19 00:00: 00 Yes [id number] 50mg Take 1 tablet by mouth every 6 (six) hours as needed for Pain (scale 4-6) or Pain (scale 7-10). Indication s: acute pain [facility] traMADoL 50 mg tablet 08-19 00:00: 00 Yes [id number] 50mg Take 1 tablet by mouth every 6 (six) hours as needed for Pain (scale 4-6) or Pain (scale 7-10). Indication s: acute pain [facility] traMADoL 50 mg tablet 08-19 00:00: 00 Yes [id number] 50mg Take 1 tablet by mouth every 6 (six) hours as needed for Pain (scale 4-6) or Pain (scale 7-10). Indication s: acute pain [facility] traMADoL 50 mg tablet 08-19 00:00: 00 Yes [id number] 50mg Take 1 tablet by mouth every 6 (six) hours as needed for Pain (scale 4-6) or Pain (scale 7-10). Indication s: [facility] 08-19 00:00: 00 Yes [id number] 50mg Take 1 tablet by mouth every 6 (six) hours as needed for Pain (scale 4-6) or Pain (scale 7-10). Indication s: [facility] tablet 08-19 00:00: 00 Yes [id number] 50mg Take 1 tablet by mouth every 6 (six) hours as needed for Pain (scale 4-6) or Pain (scale 7-10). Indication s: acute pain [facility] traMADoL 50 mg tablet 08-19 00:00: 00 Yes [id number] 50mg Take 1 tablet by mouth every 6 (six) hours as needed for Pain (scale 4-6) or Pain (scale 7-10). Indication s: acute pain [facility] traMADoL 50 mg tablet 08-19 00:00: 00 Yes [id number] 50mg Take 1 tablet by mouth every 6 (six) hours as needed for Pain (scale 4-6) or Pain (scale 7-10). Indication s: acute pain [facility] traMADoL 50 mg tablet 08-19 00:00: 00 Yes 4647 50mg Take 1 tablet by mouth every 6 (six) hours as needed for Pain (scale 4-6) or Pain (scale 7-10). Indication s: acute pain [facility] traMADoL 50 mg tablet 08-19 00:00: 00 Yes 4647 50mg Take 1 tablet by mouth every 6 (six) hours as needed for Pain (scale 4-6) or Pain (scale 7-10). Indication [facility]: [facility] 08-19 00:00: 00 Yes [id number] 50mg Take 1 tablet by mouth every 6 (six) hours as needed for Pain (scale 4-6) or Pain (scale 7-10). Indication [facility]: [facility] tablet 08-19 00:00: 00 Yes 4647 50mg Take 1 tablet by mouth every 6 (six) hours as needed for Pain (scale 4-6) or Pain (scale 7-10). Indication s: acute pain [facility] traMADoL 50 mg tablet 08-19 00:00: 00 Yes 4647 50mg Take 1 tablet by mouth every 6 (six) hours as needed for Pain (scale 4-6) or Pain (scale 7-10). Indication s: acute pain [facility] traMADoL 50 mg tablet 08-19 00:00: 00 Yes 4647 50mg Take 1 tablet by mouth every 6 (six) hours as needed for Pain (scale 4-6) or Pain (scale 7-10). Indication s: acute pain [facility] traMADoL 50 mg tablet 08-19 00:00: 00 Yes 4647 50mg Take 1 tablet by mouth every 6 (six) hours as needed for Pain (scale 4-6) or Pain (scale 7-10). Indication s: acute pain [facility] traMADoL 50 mg tablet 08-19 00:00: 00 Yes 4647 50mg Take 1 tablet by mouth every 6 (six) hours as needed for Pain (scale 4-6) or Pain (scale 7-10). Indication s: acute pain [facility] traMADoL 50 mg tablet 08-19 00:00: 00 Yes 4647 50mg Take 1 tablet by mouth every 6 (six) hours as needed for Pain (scale 4-6) or Pain (scale 7-10). Indication s: acute pain [facility] traMADoL 50 mg tablet 08-19 00:00: 00 Yes 4647 50mg Take 1 tablet by mouth every 6 (six) hours as needed for Pain (scale 4-6) or Pain (scale 7-10). Indication s: [facility] tablet 08-19 00:00: 00 Yes 4647 50mg Take 1 tablet by mouth every 6 (six) hours as needed for Pain (scale 4-6) or Pain (scale 7-10). Indication s: [facility] mg tablet 08-19 00:00: 00 Yes 4647 50mg Take 1 tablet by mouth every 6 (six) hours as needed for Pain (scale 4-6) or Pain (scale 7-10). Indication s: acute pain [facility] traMADoL 50 mg tablet 08-19 00:00: 00 Yes 4647 50mg Take 1 tablet by mouth every 6 (six) hours as needed for Pain (scale 4-6) or Pain (scale 7-10). Indication s: acute pain [facility] traMADoL 50 mg tablet 08-19 00:00: 00 Yes 4647 50mg Take 1 tablet by mouth every 6 (six) hours as needed for Pain (scale 4-6) or Pain (scale 7-10). Indication s: acute pain [facility] traMADoL 50 mg tablet 08-19 00:00: 00 Yes 4647 50mg Take 1 tablet by mouth every 6 (six) hours as needed for Pain (scale 4-6) or Pain (scale 7-10). Indication s: acute pain [facility] traMADoL 50 mg tablet 08-19 00:00: 00 Yes 4647 50mg Take 1 tablet by mouth every 6 (six) hours as needed for Pain (scale 4-6) or Pain (scale 7-10). Indication s: acute pain [facility] traMADoL 50 mg tablet 08-19 00:00: 00 Yes 4647 50mg Take 1 tablet by mouth every 6 (six) hours as needed for Pain (scale 4-6) or Pain (scale 7-10). Indication s: acute pain [facility] traMADoL 50 mg tablet 08-19 00:00: 00 Yes 4647 50mg Take 1 tablet by mouth every 6 (six) hours as needed for Pain (scale 4-6) or Pain (scale 7-10). Indication s: acute pain [facility] traMADoL 50 mg tablet 08-19 00:00: 00 Yes 4647 50mg Take 1 tablet by mouth every 6 (six) hours as needed for Pain (scale 4-6) or Pain (scale 7-10). Indication s: acute pain [facility] traMADoL 50 mg tablet 08-19 00:00: 00 Yes 4647 50mg Take 1 tablet by mouth every 6 (six) hours as needed for Pain (scale 4-6) or Pain (scale 7-10). Indication s: acute pain [facility] traMADoL 50 mg tablet 08-19 00:00: 00 Yes 4647 50mg Take 1 tablet by mouth every 6 (six) hours as needed for Pain (scale 4-6) or Pain (scale 7-10). Indication s: acute pain [facility] traMADoL 50 mg tablet 08-19 00:00: 00 Yes 4647 50mg Take 1 tablet by mouth every 6 (six) hours as needed for Pain (scale 4-6) or Pain (scale 7-10). Indication s: [facility] 08-19 00:00: 00 Yes 4647 50mg Take 1 tablet by mouth every 6 (six) hours as needed for Pain (scale 4-6) or Pain (scale 7-10). Indication s: acute [facility] mg tablet 08-19 00:00: 00 Yes 4647 50mg Take 1 tablet by mouth every 6 (six) hours as needed for Pain (scale 4-6) or Pain (scale 7-10). Indication s: acute pain [facility] tra[facility] mg tablet 08-19 00:00: 00 Yes 4647 50mg Take 1 tablet by mouth every 6 (six) hours as needed for Pain (scale 4-6) or Pain (scale 7-10). Indication s: acute pain [facility] traMADoL 50 mg tablet 08-19 00:00: 00 Yes 4647 50mg Take 1 tablet by mouth every 6 (six) hours as needed for Pain (scale 4-6) or Pain (scale 7-10). Indication s: acute pain [facility] traMADoL 50 mg tablet 08-19 00:00: 00 Yes 4647 50mg Take 1 tablet by mouth every 6 (six) hours as needed for Pain (scale 4-6) or Pain (scale 7-10). Indication s: acute pain [facility] traMADoL 50 mg tablet 08-19 00:00: 00 Yes 4647 50mg Take 1 tablet by mouth every 6 (six) hours as needed for Pain (scale 4-6) or Pain (scale 7-10). Indication s: acute pain [facility] traMADoL 50 mg tablet 08-19 00:00: 00 Yes 4647 50mg Take 1 tablet by mouth every 6 (six) hours as needed for Pain (scale 4-6) or Pain (scale 7-10). Indication s: acute pain [facility] traMADoL 50 mg tablet 08-19 00:00: 00 Yes 4647 50mg Take 1 tablet by mouth every 6 (six) hours as needed for Pain (scale 4-6) or Pain (scale 7-10). Indication s: acute [facility] mg tablet 08-19 00:00: 00 Yes 4647 50mg Take 1 tablet by mouth every 6 (six) hours as needed for Pain (scale 4-6) or Pain (scale 7-10). Indication s: acute pain [facility] traMADoL 50 mg tablet 08-19 00:00: 00 Yes 4647 50mg Take 1 tablet by mouth every 6 (six) hours as needed for Pain (scale 4-6) or Pain (scale 7-10). Indication s: acute pain [facility] traMADoL 50 mg tablet 08-19 00:00: 00 Yes 4647 50mg Take 1 tablet by mouth every 6 (six) hours as needed for Pain (scale 4-6) or Pain (scale 7-10). Indication s: acute pain [facility] traMADoL 50 mg tablet 08-19 00:00: 00 Yes 4647 50mg Take 1 tablet by mouth every 6 (six) hours as needed for Pain (scale 4-6) or Pain (scale 7-10). Indication s: [facility] tablet 08-19 00:00: 00 Yes 4647 50mg Take 1 tablet by mouth every 6 (six) hours as needed for Pain (scale 4-6) or Pain (scale 7-10). Indication s: acute pain [facility] traMADoL 50 mg tablet 08-19 00:00: 00 Yes 4647 50mg Take 1 tablet by mouth every 6 (six) hours as needed for Pain (scale 4-6) or Pain (scale 7-10). Indication s: acute pain [facility] traMADoL 50 mg tablet 08-19 00:00: 00 Yes 4647 50mg Take 1 tablet by mouth every 6 (six) hours as needed for Pain (scale 4-6) or Pain (scale 7-10). Indication s: acute pain [facility] traMADoL 50 mg tablet 08-19 00:00: 00 Yes 4647 50mg Take 1 tablet by mouth every 6 (six) hours as needed for Pain (scale 4-6) or Pain (scale 7-10). Indication s: acute pain [facility] traMADoL 50 mg tablet 08-19 00:00: 00 Yes 4647 50mg Take 1 tablet by mouth every 6 (six) hours as needed for Pain (scale 4-6) or Pain (scale 7-10). Indication s: acute pain [facility] traMADoL 50 mg tablet 08-19 00:00: 00 Yes 4647 50mg Take 1 tablet by mouth every 6 (six) hours as needed for Pain (scale 4-6) or Pain (scale 7-10). Indication s: acute pain [facility] traMADoL 50 mg tablet 08-19 00:00: 00 Yes 4647 50mg Take 1 tablet by mouth every 6 (six) hours as needed for Pain (scale 4-6) or Pain (scale 7-10). Indication s: acute pain [facility] traMADoL 50 mg tablet 08-19 00:00: 00 Yes 4647 50mg Take 1 tablet by mouth every 6 (six) hours as needed for Pain (scale 4-6) or Pain (scale 7-10). Indication s: acute pain [facility] traMADoL 50 mg tablet 08-19 00:00: 00 Yes 4647 50mg Take 1 tablet by mouth every 6 (six) hours as needed for Pain (scale 4-6) or Pain (scale 7-10). Indication s: acute pain [facility] traMADoL 50 mg tablet 08-19 00:00: 00 Yes 4647 50mg Take 1 tablet by mouth every 6 (six) hours as needed for Pain (scale 4-6) or Pain (scale 7-10). Indication s: [facility] tablet 08-19 00:00: 00 Yes 4647 50mg Take 1 tablet by mouth every 6 (six) hours as needed for Pain (scale 4-6) or Pain (scale 7-10). Indication s: acute pain [facility] traMADoL 50 mg tablet 08-19 00:00: 00 Yes 4647 50mg Take 1 tablet by mouth every 6 (six) hours as needed for Pain (scale 4-6) or Pain (scale 7-10). Indication s: [facility] mg tablet 08-19 00:00: 00 Yes 4647 50mg Take 1 tablet by mouth every 6 (six) hours as needed for Pain (scale 4-6) or Pain (scale 7-10). Indication s: acute [facility] tra[facility] mg tablet 08-19 00:00: 00 Yes 4647 50mg Take 1 tablet by mouth every 6 (six) hours as needed for Pain (scale 4-6) or Pain (scale 7-10). Indication s: acute pain [facility] tra[facility]AD[facility] mg tablet 08-19 00:00: 00 Yes 4647 50mg Take 1 tablet by mouth every 6 (six) hours as needed for Pain (scale 4-6) or Pain (scale 7-10). Indication s: acute pain [facility] traMAD[facility] mg tablet 08-19 00:00: 00 Yes 4647 50mg Take 1 tablet by mouth every 6 (six) hours as needed for Pain (scale 4-6) or Pain (scale 7-10). Indication s: acute pain [facility] tra[facility]AD[facility] mg tablet 08-19 00:00: 00 Yes 4647 50mg Take 1 tablet by mouth every 6 (six) hours as needed for Pain (scale 4-6) or Pain (scale 7-10). Indication s: acute pain [facility] tra[facility] mg tablet 08-19 00:00: 00 Yes 4647 50mg Take 1 tablet by mouth every 6 (six) hours as needed for Pain (scale 4-6) or Pain (scale 7-10). Indication s: acute pain [facility] traMADoL 50 mg tablet 08-19 00:00: 00 Yes 4647 50mg Take 1 tablet by mouth every 6 (six) hours as needed for Pain (scale 4-6) or Pain (scale 7-10). Indication s: acute pain [facility] tra[facility] mg tablet 08-19 00:00: 00 Yes 4647 50mg Take 1 tablet by mouth every 6 (six) hours as needed for Pain (scale 4-6) or Pain (scale 7-10). Indication s: acute pain [facility] traMADoL 50 mg tablet 08-19 00:00: 00 Yes 4647 50mg Take 1 tablet by mouth every 6 (six) hours as needed for Pain (scale 4-6) or Pain (scale 7-10). Indication s: acute pain [facility] traMADoL 50 mg tablet 08-19 00:00: 00 Yes 4647 50mg Take 1 tablet by mouth every 6 (six) hours as needed for Pain (scale 4-6) or Pain (scale 7-10). Indication s: acute pain [facility] traMADoL 50 mg tablet 08-19 00:00: 00 Yes 4647 50mg Take 1 tablet by mouth every 6 (six) hours as needed for Pain (scale 4-6) or Pain (scale 7-10). Indication s: acute pain [facility] traMADoL 50 mg tablet 08-19 00:00: 00 Yes 4647 50mg Take 1 tablet by mouth every 6 (six) hours as needed for Pain (scale 4-6) or Pain (scale 7-10). Indication s: [facility] mg tablet 08-19 00:00: 00 Yes 4647 50mg Take 1 tablet by mouth every 6 (six) hours as needed for Pain (scale 4-6) or Pain (scale 7-10). Indication s: acute pain [facility] traMADoL 50 mg tablet 08-19 00:00: 00 Yes 4647 50mg Take 1 tablet by mouth every 6 (six) hours as needed for Pain (scale 4-6) or Pain (scale 7-10). Indication s: acute pain [facility] traMADoL 50 mg tablet 08-19 00:00: 00 Yes 4647 50mg Take 1 tablet by mouth every 6 (six) hours as needed for Pain (scale 4-6) or Pain (scale 7-10). Indication s: [facility] mg tablet 08-19 00:00: 00 Yes 4647 50mg Take 1 tablet by mouth every 6 (six) hours as needed for Pain (scale 4-6) or Pain (scale 7-10). Indication s: acute pain [facility] traMADoL 50 mg tablet 08-19 00:00: 00 Yes 4647 50mg Take 1 tablet by mouth every 6 (six) hours as needed for Pain (scale 4-6) or Pain (scale 7-10). Indication s: acute pain [facility] traMADoL 50 mg tablet 08-19 00:00: 00 Yes 4647 50mg Take 1 tablet by mouth every 6 (six) hours as needed for Pain (scale 4-6) or Pain (scale 7-10). Indication s: acute pain [facility] traMADoL 50 mg tablet 08-19 00:00: 00 Yes 4647 50mg Take 1 tablet by mouth every 6 (six) hours as needed for Pain (scale 4-6) or Pain (scale 7-10). Indication s: acute pain [facility] traMADoL 50 mg tablet 08-19 00:00: 00 Yes 4647 50mg Take 1 tablet by mouth every 6 (six) hours as needed for Pain (scale 4-6) or Pain (scale 7-10). Indication s: acute pain [facility] traMADoL 50 mg tablet 08-19 00:00: 00 Yes 4647 50mg Take 1 tablet by mouth every 6 (six) hours as needed for Pain (scale 4-6) or Pain (scale 7-10). Indication s: acute pain [facility] traMADoL 50 mg tablet 08-19 00:00: 00 Yes 4647 50mg Take 1 tablet by mouth every 6 (six) hours as needed for Pain (scale 4-6) or Pain (scale 7-10). Indication s: acute pain [facility] traMADoL 50 mg tablet 08-19 00:00: 00 Yes 4647 50mg Take 1 tablet by mouth every 6 (six) hours as needed for Pain (scale 4-6) or Pain (scale 7-10). Indication s: [facility] 08-19 00:00: 00 Yes 4647 50mg Take 1 tablet by mouth every 6 (six) hours as needed for Pain (scale 4-6) or Pain (scale 7-10). Indication s: [facility] mg tablet 08-19 00:00: 00 Yes 4647 50mg Take 1 tablet by mouth every 6 (six) hours as needed for Pain (scale 4-6) or Pain (scale 7-10). Indication s: [facility] mg tablet 08-19 00:00: 00 Yes 4647 50mg Take 1 tablet by mouth every 6 (six) hours as needed for Pain (scale 4-6) or Pain (scale 7-10). Indication [facility]: [facility] 08-19 00:00: 00 Yes [id number] 50mg Take 1 tablet by mouth every 6 (six) hours as needed for Pain (scale 4-6) or Pain (scale 7-10). Indication s: acute pain [facility] traMADoL 50 mg tablet 08-19 00:00: 00 Yes [id number] 50mg Take 1 tablet by mouth every 6 (six) hours as needed for Pain (scale 4-6) or Pain (scale 7-10). Indication s: acute pain [facility] traMADoL 50 mg tablet 08-19 00:00: 00 Yes [id number] 50mg Take 1 tablet by mouth every 6 (six) hours as needed for Pain (scale 4-6) or Pain (scale 7-10). Indication s: acute pain [facility] traMADoL 50 mg tablet 08-19 00:00: 00 Yes [id number] 50mg Take 1 tablet by mouth every 6 (six) hours as needed for Pain (scale 4-6) or Pain (scale 7-10). Indication s: acute pain [facility] traMADoL 50 mg tablet 08-19 00:00: 00 Yes [id number] 50mg Take 1 tablet by mouth every 6 (six) hours as needed for Pain (scale 4-6) or Pain (scale 7-10). Indication s: acute pain [facility] traMADoL 50 mg tablet 08-19 00:00: 00 Yes [id number] 50mg Take 1 tablet by mouth every 6 (six) hours as needed for Pain (scale 4-6) or Pain (scale 7-10). Indication s: acute pain [facility] traMADoL 50 mg tablet 08-19 00:00: 00 Yes [id number] 50mg Take 1 tablet by mouth every 6 (six) hours as needed for Pain (scale 4-6) or Pain (scale 7-10). Indication s: acute pain [facility] traMADoL 50 mg tablet 08-19 00:00: 00 Yes [id number] 50mg Take 1 tablet by mouth every 6 (six) hours as needed for Pain (scale 4-6) or Pain (scale 7-10). Indication s: acute pain [facility] traMADoL 50 mg tablet 08-19 00:00: 00 Yes [id number] 50mg Take 1 tablet by mouth every 6 (six) hours as needed for Pain (scale 4-6) or Pain (scale 7-10). Indication s: acute pain [facility] traMADoL 50 mg tablet 08-19 00:00: 00 Yes [id number] 50mg Take 1 tablet by mouth every 6 (six) hours as needed for Pain (scale 4-6) or Pain (scale 7-10). Indication s: acute pain [facility] traMADoL 50 mg tablet 08-19 00:00: 00 Yes [id number] 50mg Take 1 tablet by mouth every 6 (six) hours as needed for Pain (scale 4-6) or Pain (scale 7-10). Indication s: acute pain [facility] traMADoL 50 mg tablet 08-19 00:00: 00 Yes [id number] 50mg Take 1 tablet by mouth every 6 (six) hours as needed for Pain (scale 4-6) or Pain (scale 7-10). Indication s: acute pain [facility] traMADoL 50 mg tablet 08-19 00:00: 00 Yes [id number] 50mg Take 1 tablet by mouth every 6 (six) hours as needed for Pain (scale 4-6) or Pain (scale 7-10). Indication s: acute pain [facility] traMADoL 50 mg tablet 08-19 00:00: 00 Yes [id number] 50mg Take 1 tablet by mouth every 6 (six) hours as needed for Pain (scale 4-6) or Pain (scale 7-10). Ind[facility]: [facility] 08-19 00:00: 00 Yes [id number] 50mg Take 1 tablet by mouth every 6 (six) hours as needed for Pain (scale 4-6) or Pain (scale 7-10). Indication s: acute pain [facility] traMADoL 50 mg tablet 08-19 00:00: 00 Yes [id number] 50mg Take 1 tablet by mouth every 6 (six) hours as needed for Pain (scale 4-6) or Pain (scale 7-10). Indication [facility]: [facility] 08-19 00:00: 00 Yes [id number] 50mg Take 1 tablet by mouth every 6 (six) hours as needed for Pain (scale 4-6) or Pain (scale 7-10). Indication s: acute pain [facility] traMADoL 50 mg tablet 08-19 00:00: 00 Yes [id number] 50mg Take 1 tablet by mouth every 6 (six) hours as needed for Pain (scale 4-6) or Pain (scale 7-10). Indication s: acute pain [facility] traMADoL 50 mg tablet 08-19 00:00: 00 Yes [id number] 50mg Take 1 tablet by mouth every 6 (six) hours as needed for Pain (scale 4-6) or Pain (scale 7-10). Indication s: acute pain [facility] traMADoL 50 mg tablet 08-19 00:00: 00 Yes [id number] 50mg Take 1 tablet by mouth every 6 (six) hours as needed for Pain (scale 4-6) or Pain (scale 7-10). Indication [facility]: [facility] 08-19 00:00: 00 Yes [id number] 50mg Take 1 tablet by mouth every 6 (six) hours as needed for Pain (scale 4-6) or Pain (scale 7-10). Indication s: [facility] tra[facility] mg tablet 08-19 00:00: 00 Yes [id number] 50mg Take 1 tablet by mouth every 6 (six) hours as needed for Pain (scale 4-6) or Pain (scale 7-10). Indication s: acute [facility] tra[facility] mg tablet 08-19 00:00: 00 Yes [id number] 50mg Take 1 tablet by mouth every 6 (six) hours as needed for Pain (scale 4-6) or Pain (scale 7-10). Indication s: acute [facility] tra[facility]AD[facility] mg tablet 08-19 00:00: 00 Yes [id number] 50mg Take 1 tablet by mouth every 6 (six) hours as needed for Pain (scale 4-6) or Pain (scale 7-10). Indication s: acute [facility] tra[facility] mg tablet 08-19 00:00: 00 Yes [id number] 50mg Take 1 tablet by mouth every 6 (six) hours as needed for Pain (scale 4-6) or Pain (scale 7-10). Indication s: [facility] tra[facility] mg tablet 08-19 00:00: 00 Yes [id number] 50mg Take 1 tablet by mouth every 6 (six) hours as needed for Pain (scale 4-6) or Pain (scale 7-10). Indication s: acute pain [facility] traMADoL 50 mg tablet 08-19 00:00: 00 Yes [id number] 50mg Take 1 tablet by mouth every 6 (six) hours as needed for Pain (scale 4-6) or Pain (scale 7-10). Indication s: acute pain [facility] traMADoL 50 mg tablet 08-19 00:00: 00 Yes [id number] 50mg Take 1 tablet by mouth every 6 (six) hours as needed for Pain (scale 4-6) or Pain (scale 7-10). Indication s: acute pain [facility] traMADoL 50 mg tablet 08-19 00:00: 00 Yes [id number] 50mg Take 1 tablet by mouth every 6 (six) hours as needed for Pain (scale 4-6) or Pain (scale 7-10). Indication s: acute pain [facility] traMADoL 50 mg tablet 08-19 00:00: 00 Yes [id number] 50mg Take 1 tablet by mouth every 6 (six) hours as needed for Pain (scale 4-6) or Pain (scale 7-10). Indication s: acute pain [facility] traMADoL 50 mg tablet 08-19 00:00: 00 Yes [id number] 50mg Take 1 tablet by mouth every 6 (six) hours as needed for Pain (scale 4-6) or Pain (scale 7-10). Indication s: acute pain [facility] traMADoL 50 mg tablet 08-19 00:00: 00 Yes [id number] 50mg Take 1 tablet by mouth every 6 (six) hours as needed for Pain (scale 4-6) or Pain (scale 7-10). Indication s: acute pain [facility] traMADoL 50 mg tablet 08-19 00:00: 00 Yes [id number] 50mg Take 1 tablet by mouth every 6 (six) hours as needed for Pain (scale 4-6) or Pain (scale 7-10). Indication s: acute pain [facility] traMADoL 50 mg tablet 08-19 00:00: 00 Yes [id number] 50mg Take 1 tablet by mouth every 6 (six) hours as needed for Pain (scale 4-6) or Pain (scale 7-10). Indication s: acute pain [facility] traMADoL 50 mg tablet 2021-0 - 00:00: 00 Yes [id number] 50mg Take 1 tablet by mouth every 6 (six) hours as needed for Pain (scale 4-6) or Pain (scale 7-10). Indication s: acute pain [facility] traMADoL 50 mg tablet 2021-0 08-19 00:00: 00 01-24 00:00 :00 No [id number] 50mg Take 1 tablet by mouth every 6 (six) hours as needed for Pain (scale 4-6) or Pain (scale 7-10). Indication s: acute pain [facility] traMADoL 50 mg tablet 0 08-19 00:00: 00 01-24 00:00 :00 No [id number] 50mg Take 1 tablet by mouth every 6 (six) hours as needed for Pain (scale 4-6) or Pain (scale 7-10). Indication s: acute pain [facility] traMADoL 50 mg tablet 2021-0 08-19 00:00: 00 01-24 00:00 :00 No [id number] 50mg Take 1 tablet by mouth every 6 (six) hours as needed for Pain (scale 4-6) or Pain (scale 7-10). Indication s: acute pain [facility] traMADoL 50 mg tablet 2021-0 08-19 00:00: 00 01-24 00:00 :00 No [id number] 50mg Take 1 tablet by mouth every 6 (six) hours as needed for Pain (scale 4-6) or Pain (scale 7-10). Indication s: acute pain [facility] traMADoL 50 mg tablet 2021-0 9 00:00: 00 01-24 00:00 :00 No [id number] 50mg Take 1 tablet by mouth every 6 (six) hours as needed for Pain (scale 4-6) or Pain (scale 7-10). Indication s: acute pain [facility] traMADoL 50 mg tablet 2021-0 08-19 00:00: 00 01-24 00:00 :00 No [id number] 50mg Take 1 tablet by mouth every 6 (six) hours as needed for Pain (scale 4-6) or Pain (scale 7-10). Indication s: acute pain [facility] traMADoL 50 mg tablet 0 08-19 00:00: 00 01-24 00:00 :00 No [id number] 50mg Take 1 tablet by mouth every 6 (six) hours as needed for Pain (scale 4-6) or Pain (scale 7-10). Indication s: [facility] 08-19 00:00: 00 01-24 00:00 :00 No [id number] 50mg Take 1 tablet by mouth every 6 (six) hours as needed for Pain (scale 4-6) or Pain (scale 7-10). Indication s: [facility] tra[facility] mg tablet 08-19 00:00: 00 01-24 00:00 :00 No [id number] 50mg Take 1 tablet by mouth every 6 (six) hours as needed for Pain (scale 4-6) or Pain (scale 7-10). Indication s: acute pain [facility] zolpidem (AMBIEN) 5 mg tablet 08-11 00:00: 00 Yes [id number] 5mg Take 1 tablet by mouth at bedtime as needed for Insomnia. [facility] zolpidem (AMBIEN) 5 mg tablet 0 08-11 00:00: 00 Yes [id number] 5mg Take 1 tablet by mouth at bedtime as needed for Insomnia. [facility] 5 mg tablet 2021-0 08-11 00:00: 00 Yes [id number] 5mg Take 1 tablet by mouth at bedtime as needed for Insomnia. [facility] zolpidem (AMBIEN) 5 mg tablet 2021-0 08-11 00:00: 00 Yes [id number] 5mg Take 1 tablet by mouth at bedtime as needed for Insomnia. [facility] zolpidem (AMBIEN) 5 mg tablet 2021-0 9-12 00:00: 00 Yes [id number] 5mg Take 1 tablet by mouth at bedtime as needed for Insomnia. [facility] zolpidem (AMBIEN) 5 mg tablet 2021-0 12 00:00: 00 Yes [id number] 5mg Take 1 tablet by mouth at bedtime as needed for Insomnia. [facility] zolpidem (AMBIEN) 5 mg tablet 2021-0 12 00:00: 00 Yes [id number] 5mg Take 1 tablet by mouth at bedtime as needed for Insomnia. [facility] zolpidem (AMBIEN) 5 mg tablet 2021-0 12 00:00: 00 Yes [id number] 5mg Take 1 tablet by mouth at bedtime as needed for Insomnia. [facility] zolpidem (AMBIEN) 5 mg tablet 2021-0 08-11 00:00: 00 Yes [id number] 5mg Take 1 tablet by mouth at bedtime as needed for Insomnia. [facility] zolpidem (AMBIEN) 5 mg tablet 2021-0 08-11 00:00: 00 Yes [id number] 5mg Take 1 tablet by mouth at bedtime as needed for Insomnia. [facility] zolpidem (AMBIEN) 5 mg tablet 2021-0 08-11 00:00: 00 Yes [id number] 5mg Take 1 tablet by mouth at bedtime as needed for Insomnia. [facility] zolpidem (AMBIEN) 5 mg tablet 2021-0 08-11 00:00: 00 Yes [id number] 5mg Take 1 tablet by mouth at bedtime as needed for Insomnia. [facility] zolpidem (AMBIEN) 5 mg tablet 2-0 12 00:00: 00 Yes [id number] 5mg Take 1 tablet by mouth at bedtime as needed for Insomnia. [facility] zolpidem (AMBIEN) 5 mg tablet 2-0 12 00:00: 00 Yes [id number] 5mg Take 1 tablet by mouth at bedtime as needed for Insomnia. [facility] zolpidem (AMBIEN) 5 mg tablet 2-0 12 00:00: 00 Yes [id number] 5mg Take 1 tablet by mouth at bedtime as needed for Insomnia. [facility] zolpidem (AMBIEN) 5 mg tablet 2021-0 12 00:00: 00 Yes [id number] 5mg Take 1 tablet by mouth at bedtime as needed for Insomnia. [facility] zolpidem (AMBIEN) 5 mg tablet 2021-0 12 00:00: 00 Yes [id number] 5mg Take 1 tablet by mouth at bedtime as needed for Insomnia. [facility] zolpidem (AMBIEN) 5 mg tablet 2021-0 12 00:00: 00 Yes [id number] 5mg Take 1 tablet by mouth at bedtime as needed for Insomnia. [facility] zolpidem (AMBIEN) 5 mg tablet 2021-0 08-11 00:00: 00 Yes [id number] 5mg Take 1 tablet by mouth at bedtime as needed for Insomnia. [facility] zolpidem (AMBIEN) 5 mg tablet 2021-0 08-11 00:00: 00 Yes [id number] 5mg Take 1 tablet by mouth at bedtime as needed for Insomnia. [facility] zolpidem (AMBIEN) 5 mg tablet 2021-0 08-11 00:00: 00 Yes [id number] 5mg Take 1 tablet by mouth at bedtime as needed for Insomnia. [facility] zolpidem (AMBIEN) 5 mg tablet 2021-0 08-11 00:00: 00 Yes [id number] 5mg Take 1 tablet by mouth at bedtime as needed for Insomnia. [facility] zolpidem (AMBIEN) 5 mg tablet 2-0 12 00:00: 00 Yes [id number] 5mg Take 1 tablet by mouth at bedtime as needed for Insomnia. [facility] zolpidem (AMBIEN) 5 mg tablet 2-0 12 00:00: 00 Yes [id number] 5mg Take 1 tablet by mouth at bedtime as needed for Insomnia. [facility] zolpidem (AMBIEN) 5 mg tablet 2-0 12 00:00: 00 Yes [id number] 5mg Take 1 tablet by mouth at bedtime as needed for Insomnia. [facility] zolpidem (AMBIEN) 5 mg tablet 2021-0 12 00:00: 00 Yes [id number] 5mg Take 1 tablet by mouth at bedtime as needed for Insomnia. [facility] zolpidem (AMBIEN) 5 mg tablet 2021-0 12 00:00: 00 Yes [id number] 5mg Take 1 tablet by mouth at bedtime as needed for Insomnia. [facility] zolpidem (AMBIEN) 5 mg tablet 2021-0 12 00:00: 00 Yes [id number] 5mg Take 1 tablet by mouth at bedtime as needed for Insomnia. [facility] zolpidem (AMBIEN) 5 mg tablet 2021-0 08-11 00:00: 00 Yes [id number] 5mg Take 1 tablet by mouth at bedtime as needed for Insomnia. [facility] zolpidem (AMBIEN) 5 mg tablet 2021-0 08-11 00:00: 00 Yes [id number] 5mg Take 1 tablet by mouth at bedtime as needed for Insomnia. [facility] zolpidem (AMBIEN) 5 mg tablet 2021-0 08-11 00:00: 00 Yes [id number] 5mg Take 1 tablet by mouth at bedtime as needed for Insomnia. [facility] zolpidem (AMBIEN) 5 mg tablet 2021-0 08-11 00:00: 00 Yes [id number] 5mg Take 1 tablet by mouth at bedtime as needed for Insomnia. [facility] zolpidem (AMBIEN) 5 mg tablet 2-0 12 00:00: 00 Yes [id number] 5mg Take 1 tablet by mouth at bedtime as needed for Insomnia. [facility] zolpidem (AMBIEN) 5 mg tablet 2-0 12 00:00: 00 Yes [id number] 5mg Take 1 tablet by mouth at bedtime as needed for Insomnia. [facility] zolpidem (AMBIEN) 5 mg tablet 2-0 12 00:00: 00 Yes [id number] 5mg Take 1 tablet by mouth at bedtime as needed for Insomnia. [facility] zolpidem (AMBIEN) 5 mg tablet 2021-0 12 00:00: 00 Yes [id number] 5mg Take 1 tablet by mouth at bedtime as needed for Insomnia. [facility] zolpidem (AMBIEN) 5 mg tablet 2021-0 12 00:00: 00 Yes [id number] 5mg Take 1 tablet by mouth at bedtime as needed for Insomnia. [facility] zolpidem (AMBIEN) 5 mg tablet 2021-0 12 00:00: 00 Yes [id number] 5mg Take 1 tablet by mouth at bedtime as needed for Insomnia. [facility] zolpidem (AMBIEN) 5 mg tablet 2021-0 08-11 00:00: 00 Yes [id number] 5mg Take 1 tablet by mouth at bedtime as needed for Insomnia. [facility] zolpidem (AMBIEN) 5 mg tablet 2021-0 08-11 00:00: 00 Yes [id number] 5mg Take 1 tablet by mouth at bedtime as needed for Insomnia. [facility] zolpidem (AMBIEN) 5 mg tablet 2021-0 08-11 00:00: 00 Yes [id number] 5mg Take 1 tablet by mouth at bedtime as needed for Insomnia. [facility] zolpidem (AMBIEN) 5 mg tablet 2021-0 08-11 00:00: 00 Yes [id number] 5mg Take 1 tablet by mouth at bedtime as needed for Insomnia. [facility] zolpidem (AMBIEN) 5 mg tablet 2-0 12 00:00: 00 Yes [id number] 5mg Take 1 tablet by mouth at bedtime as needed for Insomnia. [facility] zolpidem (AMBIEN) 5 mg tablet 2-0 12 00:00: 00 Yes [id number] 5mg Take 1 tablet by mouth at bedtime as needed for Insomnia. [facility] zolpidem (AMBIEN) 5 mg tablet 2-0 12 00:00: 00 Yes [id number] 5mg Take 1 tablet by mouth at bedtime as needed for Insomnia. [facility] zolpidem (AMBIEN) 5 mg tablet 08-11 00:00: 00 10-13 00:00 :00 No [id number] 5mg Take 1 tablet by mouth at bedtime as needed for Insomnia. [facility] zolpidem (AMBIEN) 5 mg tablet 08-11 00:00: 00 10-13 00:00 :00 No [id number] 5mg Take 1 tablet by mouth at bedtime as needed for Insomnia. [facility] zolpidem (AMBIEN) 5 mg tablet 08-11 00:00: 00 10-13 00:00 :00 No [id number] 5mg Take 1 tablet by mouth at bedtime as needed for Insomnia. [facility] zolpidem (AMBIEN) 5 mg tablet 08-11 00:00: 00 10-13 00:00 :00 No [id number] 5mg Take 1 tablet by mouth at bedtime as needed for Insomnia. [facility] zolpidem (AMBIEN) 5 mg tablet 08-11 00:00: 00 10-13 00:00 :00 No [id number] 5mg Take 1 tablet by mouth at bedtime as needed for Insomnia. [facility] zolpidem (AMBIEN) 5 mg tablet 08-11 00:00: 00 10-13 00:00 :00 No [id number] 5mg Take 1 tablet by mouth at bedtime as needed for Insomnia. [facility] zolpidem (AMBIEN) 5 mg tablet 08-11 00:00: 00 10-13 00:00 :00 No [id number] 5mg Take 1 tablet by mouth at bedtime as needed for Insomnia. [facility] zolpidem (AMBIEN) 5 mg tablet 08-11 00:00: 00 10-13 00:00 :00 No [id number] 5mg Take 1 tablet by mouth at bedtime as needed for Insomnia. [facility] traMADoL 50 mg tablet 12 00:00: 00 08-19 04:59 :00 No [id number] 50mg Take 1 tablet by mouth every 6 (six) hours as needed for Pain (scale 7-10) for up to 7 days. Indication s: acute pain [facility] celecoxib 100 mg capsule 08-06 00:00: 00 08-21 04:59 :00 No [id number] 100mg Take 1 capsule by mouth in the morning and 1 capsule in the evening. Take with meals. Do all this for 14 days. [facility] docusate 100 mg capsule 08-06 00:00: 00 08-21 04:59 :00 No [id number] 100mg Take 1 capsule by mouth in the morning and 1 capsule in the evening. Do all this for 14 days. [facility] melatonin 3 mg tablet 08-06 00:00: 00 08-21 04:59 :00 No [id number] 3mg Take 1 tablet by mouth at bedtime for 14 days. [facility] proMETHazin e 25 mg tablet 08-06 00:00: 00 08-21 04:59 :00 No [id number] 25mg Take 1 tablet by mouth every 4 (four) hours as needed for Nausea and Vomiting (N/V) for up to 14 days. [facility] celecoxib 100 mg capsule 08-06 00:00: 00 08-21 04:59 :00 No [id number] 100mg Take 1 capsule by mouth in the morning and 1 capsule in the evening. Take with meals. Do all this for 14 days. [facility] docusate 100 mg capsule 08-06 00:00: 00 08-21 04:59 :00 No [id number] 100mg Take 1 capsule by mouth in the morning and 1 capsule in the evening. Do all this for 14 days. [facility] melatonin 3 mg tablet 08-06 00:00: 00 08-21 04:59 :00 No [id number] 3mg Take 1 tablet by mouth at bedtime for 14 days. [facility] proMETHazin e 25 mg tablet 2021-0 08-06 00:00: 00 08-21 04:59 :00 No [id number] 25mg Take 1 tablet by mouth every 4 (four) hours as needed for Nausea and Vomiting (N/V) for up to 14 days. [facility] celecoxib 100 mg capsule 08-06 00:00: 00 08-21 04:59 :00 No [id number] 100mg Take 1 capsule by mouth in the morning and 1 capsule in the evening. Take with meals. Do all this for 14 days. [facility] docusate 100 mg capsule 08-06 00:00: 00 08-21 04:59 :00 No [id number] 100mg Take 1 capsule by mouth in the morning and 1 capsule in the evening. Do all this for 14 days. [facility] melatonin 3 mg tablet 08-06 00:00: 00 08-21 04:59 :00 No [id number] 3mg Take 1 tablet by mouth at bedtime for 14 days. [facility] proMETHazin e 25 mg tablet 2021-08-06 00:00: 00 08-21 04:59 :00 No [id number] 25mg Take 1 tablet by mouth every 4 (four) hours as needed for Nausea and Vomiting (N/V) for up to 14 days. [facility] celecoxib 100 mg capsule 2021-08-06 00:00: 00 08-21 04:59 :00 No [id number] 100mg Take 1 capsule by mouth in the morning and 1 capsule in the evening. Take with meals. Do all this for 14 days. [facility] docusate 100 mg capsule 2021-08-06 00:00: 00 08-21 04:59 :00 No [id number] 100mg Take 1 capsule by mouth in the morning and 1 capsule in the evening. Do all this for 14 days. [facility] melatonin 3 mg tablet 08-06 00:00: 00 08-21 04:59 :00 No [id number] 3mg Take 1 tablet by mouth at bedtime for 14 days. [facility] proMETHazin e 25 mg tablet 08-06 00:00: 00 08-21 04:59 :00 No [id number] 25mg Take 1 tablet by mouth every 4 (four) hours as needed for Nausea and Vomiting (N/V) for up to 14 days. [facility] celecoxib 100 mg capsule 08-06 00:00: 00 08-21 04:59 :00 No [id number] 100mg Take 1 capsule by mouth in the morning and 1 capsule in the evening. Take with meals. Do all this for 14 days. [facility] docusate 100 mg capsule 08-06 00:00: 00 08-21 04:59 :00 No [id number] 100mg Take 1 capsule by mouth in the morning and 1 capsule in the evening. Do all this for 14 days. [facility] melatonin 3 mg tablet 08-06 00:00: 00 08-21 04:59 :00 No [id number] 3mg Take 1 tablet by mouth at bedtime for 14 days. [facility] proMETHazin e 25 mg tablet 08-06 00:00: 00 08-21 04:59 :00 No [id number] 25mg Take 1 tablet by mouth every 4 (four) hours as needed for Nausea and Vomiting (N/V) for up to 14 days. [facility] sulfamethox azole-trime thoprim 800-160 mg per tablet 08-06 00:00: 00 08-14 04:59 :00 No [id number] 1{tbl} Take 1 tablet by mouth in the morning and 1 tablet in the evening. Do all this for 7 days. [facility] HYDROcodone -acetaminop hen (NORCO) 5-325 mg tablet 08-06 00:00: 00 08-14 04:59 :00 No [id number] 1{tbl} Take 1 tablet by mouth every 6 (six) hours as needed for Pain (scale 7-10) for up to 7 days. Indication s: acute pain [facility] traMADoL 50 mg tablet 08-06 00:00: 00 08-14 04:59 :00 No [id number] 50mg Take 1 tablet by mouth every 6 (six) hours as needed for Pain (scale 4-6) for up to 7 days. Indication s: acute pain [facility] sulfamethox azole-trime thoprim 800-160 mg per tablet 08-06 00:00: 00 08-14 04:59 :00 No [id number] 1{tbl} Take 1 tablet by mouth in the morning and 1 tablet in the evening. Do all this for 7 days. [facility] HYDROcodone -acetaminop hen (NORCO) 5-325 mg tablet 08-06 00:00: 00 08-14 04:59 :00 No [id number] 1{tbl} Take 1 tablet by mouth every 6 (six) hours as needed for Pain (scale 7-10) for up to 7 days. Indication s: acute pain [facility] traMADoL 50 mg tablet 08-06 00:00: 00 08-14 04:59 :00 No [id number] 50mg Take 1 tablet by mouth every 6 (six) hours as needed for Pain (scale 4-6) for up to 7 days. Indication s: acute pain [facility] HYDROXYZINE 25 mg tablet 06-14 00:00: 00 Yes [id number] TAKE BY MOUTH 1 TABLET EVERY 6 HOURS NEEDED FOR ITCHING ( CAN TAKE 2 TAB BEFORE BED FOR INSOMNIA [facility] HYDROXYZINE 25 mg tablet 06-14 00:00: 00 Yes [id number] TAKE BY MOUTH 1 TABLET EVERY 6 HOURS NEEDED FOR ITCHING ( CAN TAKE 2 TAB BEFORE BED FOR INSOMNIA [facility] HYDROXYZINE 25 mg tablet 06-14 00:00: 00 Yes [id number] TAKE BY MOUTH 1 TABLET EVERY 6 HOURS NEEDED FOR ITCHING ( CAN TAKE 2 TAB BEFORE BED FOR INSOMNIA [facility] HYDROXYZINE 25 mg tablet 06-14 00:00: 00 Yes [id number] TAKE BY MOUTH 1 TABLET EVERY 6 HOURS NEEDED FOR ITCHING ( CAN TAKE 2 TAB BEFORE BED FOR INSOMNIA [facility] HYDROXYZINE 25 mg tablet 2021-0 -16 00:00: 00 Yes [id number] TAKE BY MOUTH 1 TABLET EVERY 6 HOURS NEEDED FOR ITCHING ( CAN TAKE 2 TAB BEFORE BED FOR INSOMNIA [facility] HYDROXYZINE 25 mg tablet 2021-0 -16 00:00: 00 Yes [id number] TAKE BY MOUTH 1 TABLET EVERY 6 HOURS NEEDED FOR ITCHING ( CAN TAKE 2 TAB BEFORE BED FOR INSOMNIA [facility] HYDROXYZINE 25 mg tablet 2021-0 16 00:00: 00 Yes [id number] TAKE BY MOUTH 1 TABLET EVERY 6 HOURS NEEDED FOR ITCHING ( CAN TAKE 2 TAB BEFORE BED FOR INSOMNIA [facility] HYDROXYZINE 25 mg tablet 2021-0 16 00:00: 00 Yes [id number] TAKE BY MOUTH 1 TABLET EVERY 6 HOURS NEEDED FOR ITCHING ( CAN TAKE 2 TAB BEFORE BED FOR INSOMNIA [facility] HYDROXYZINE 25 mg tablet 2021-0 16 00:00: 00 Yes [id number] TAKE BY MOUTH 1 TABLET EVERY 6 HOURS NEEDED FOR ITCHING ( CAN TAKE 2 TAB BEFORE BED FOR INSOMNIA [facility] HYDROXYZINE 25 mg tablet 2021-0 16 00:00: 00 Yes [id number] TAKE BY MOUTH 1 TABLET EVERY 6 HOURS NEEDED FOR ITCHING ( CAN TAKE 2 TAB BEFORE BED FOR INSOMNIA [facility] HYDROXYZINE 25 mg tablet 2021-0 16 00:00: 00 Yes [id number] TAKE BY MOUTH 1 TABLET EVERY 6 HOURS NEEDED FOR ITCHING ( CAN TAKE 2 TAB BEFORE BED FOR INSOMNIA [facility] HYDROXYZINE 25 mg tablet 2021-0 16 00:00: 00 Yes [id number] TAKE BY MOUTH 1 TABLET EVERY 6 HOURS NEEDED FOR ITCHING ( CAN TAKE 2 TAB BEFORE BED FOR INSOMNIA [facility] HYDROXYZINE 25 mg tablet 2021-0 -16 00:00: 00 Yes [id number] TAKE BY MOUTH 1 TABLET EVERY 6 HOURS NEEDED FOR ITCHING ( CAN TAKE 2 TAB BEFORE BED FOR INSOMNIA [facility] HYDROXYZINE 25 mg tablet 2021-0 7-16 00:00: 00 Yes [id number] TAKE BY MOUTH 1 TABLET EVERY 6 HOURS NEEDED FOR ITCHING ( CAN TAKE 2 TAB BEFORE BED FOR INSOMNIA [facility] HYDROXYZINE 25 mg tablet 2021-0 16 00:00: 00 Yes [id number] TAKE BY MOUTH 1 TABLET EVERY 6 HOURS NEEDED FOR ITCHING ( CAN TAKE 2 TAB BEFORE BED FOR INSOMNIA [facility] HYDROXYZINE 25 mg tablet 2021-0 16 00:00: 00 Yes [id number] TAKE BY MOUTH 1 TABLET EVERY 6 HOURS NEEDED FOR ITCHING ( CAN TAKE 2 TAB BEFORE BED FOR INSOMNIA [facility] HYDROXYZINE 25 mg tablet 2021-0 16 00:00: 00 Yes [id number] TAKE BY MOUTH 1 TABLET EVERY 6 HOURS NEEDED FOR ITCHING ( CAN TAKE 2 TAB BEFORE BED FOR INSOMNIA [facility] HYDROXYZINE 25 mg tablet 2021-0 16 00:00: 00 Yes [id number] TAKE BY MOUTH 1 TABLET EVERY 6 HOURS NEEDED FOR ITCHING ( CAN TAKE 2 TAB BEFORE BED FOR INSOMNIA [facility] HYDROXYZINE 25 mg tablet 2021-0 16 00:00: 00 Yes [id number] TAKE BY MOUTH 1 TABLET EVERY 6 HOURS NEEDED FOR ITCHING ( CAN TAKE 2 TAB BEFORE BED FOR INSOMNIA [facility] HYDROXYZINE 25 mg tablet 2021-0 16 00:00: 00 Yes [id number] TAKE BY MOUTH 1 TABLET EVERY 6 HOURS NEEDED FOR ITCHING ( CAN TAKE 2 TAB BEFORE BED FOR INSOMNIA [facility] HYDROXYZINE 25 mg tablet 2021-0 16 00:00: 00 Yes [id number] TAKE BY MOUTH 1 TABLET EVERY 6 HOURS NEEDED FOR ITCHING ( CAN TAKE 2 TAB BEFORE BED FOR INSOMNIA [facility] HYDROXYZINE 25 mg tablet 2021-0 16 00:00: 00 Yes [id number] TAKE BY MOUTH 1 TABLET EVERY 6 HOURS NEEDED FOR ITCHING ( CAN TAKE 2 TAB BEFORE BED FOR INSOMNIA [facility] HYDROXYZINE 25 mg tablet 2021-0 16 00:00: 00 Yes [id number] TAKE BY MOUTH 1 TABLET EVERY 6 HOURS NEEDED FOR ITCHING ( CAN TAKE 2 TAB BEFORE BED FOR INSOMNIA [facility] HYDROXYZINE 25 mg tablet 0 -16 00:00: 00 Yes [id number] TAKE BY MOUTH 1 TABLET EVERY 6 HOURS NEEDED FOR ITCHING ( CAN TAKE 2 TAB BEFORE BED FOR INSOMNIA [facility] HYDROXYZINE 25 mg tablet 2021-0 -16 00:00: 00 Yes [id number] TAKE BY MOUTH 1 TABLET EVERY 6 HOURS NEEDED FOR ITCHING ( CAN TAKE 2 TAB BEFORE BED FOR INSOMNIA [facility] HYDROXYZINE 25 mg tablet 2021-0 -16 00:00: 00 Yes [id number] TAKE BY MOUTH 1 TABLET EVERY 6 HOURS NEEDED FOR ITCHING ( CAN TAKE 2 TAB BEFORE BED FOR INSOMNIA [facility] HYDROXYZINE 25 mg tablet 2021-0 -16 00:00: 00 Yes [id number] TAKE BY MOUTH 1 TABLET EVERY 6 HOURS NEEDED FOR ITCHING ( CAN TAKE 2 TAB BEFORE BED FOR INSOMNIA [facility] HYDROXYZINE 25 mg tablet 2-0 -16 00:00: 00 Yes [id number] TAKE BY MOUTH 1 TABLET EVERY 6 HOURS NEEDED FOR ITCHING ( CAN TAKE 2 TAB BEFORE BED FOR INSOMNIA [facility] HYDROXYZINE 25 mg tablet 2021-0 16 00:00: 00 Yes [id number] TAKE BY MOUTH 1 TABLET EVERY 6 HOURS NEEDED FOR ITCHING ( CAN TAKE 2 TAB BEFORE BED FOR INSOMNIA [facility] HYDROXYZINE 25 mg tablet 2-0 16 00:00: 00 Yes [id number] TAKE BY MOUTH 1 TABLET EVERY 6 HOURS NEEDED FOR ITCHING ( CAN TAKE 2 TAB BEFORE BED FOR INSOMNIA [facility] HYDROXYZINE 25 mg tablet 2-0 -16 00:00: 00 Yes [id number] TAKE BY MOUTH 1 TABLET EVERY 6 HOURS NEEDED FOR ITCHING ( CAN TAKE 2 TAB BEFORE BED FOR INSOMNIA [facility] HYDROXYZINE 25 mg tablet 2-0 -16 00:00: 00 Yes [id number] TAKE BY MOUTH 1 TABLET EVERY 6 HOURS NEEDED FOR ITCHING ( CAN TAKE 2 TAB BEFORE BED FOR INSOMNIA [facility] HYDROXYZINE 25 mg tablet 2-0 7-16 00:00: 00 Yes [id number] TAKE BY MOUTH 1 TABLET EVERY 6 HOURS NEEDED FOR ITCHING ( CAN TAKE 2 TAB BEFORE BED FOR INSOMNIA [facility] HYDROXYZINE 25 mg tablet 2-0 -16 00:00: 00 Yes [id number] TAKE BY MOUTH 1 TABLET EVERY 6 HOURS NEEDED FOR ITCHING ( CAN TAKE 2 TAB BEFORE BED [facility]-0 -16 00:00: 00 Yes [id number] TAKE BY MOUTH 1 TABLET EVERY 6 HOURS NEEDED FOR ITCHING ( CAN TAKE 2 TAB BEFORE BED FOR INSOMNIA [facility] HYDROXYZINE 25 mg tablet 2021-0 -16 00:00: 00 Yes [id number] TAKE BY MOUTH 1 TABLET EVERY 6 HOURS NEEDED FOR ITCHING ( CAN TAKE 2 TAB BEFORE BED FOR INSOMNIA [facility] HYDROXYZINE 25 mg tablet 2021-0 -16 00:00: 00 Yes [id number] TAKE BY MOUTH 1 TABLET EVERY 6 HOURS NEEDED FOR ITCHING ( CAN TAKE 2 TAB BEFORE BED FOR INSOMNIA [facility] HYDROXYZINE 25 mg tablet 2021-0 -16 00:00: 00 Yes [id number] TAKE BY MOUTH 1 TABLET EVERY 6 HOURS NEEDED FOR ITCHING ( CAN TAKE 2 TAB BEFORE BED FOR INSOMNIA [facility] HYDROXYZINE 25 mg tablet 2-0 -16 00:00: 00 Yes [id number] TAKE BY MOUTH 1 TABLET EVERY 6 HOURS NEEDED FOR ITCHING ( CAN TAKE 2 TAB BEFORE BED FOR INSOMNIA [facility] HYDROXYZINE 25 mg tablet 2-0 -16 00:00: 00 Yes [id number] TAKE BY MOUTH 1 TABLET EVERY 6 HOURS NEEDED FOR ITCHING ( CAN TAKE 2 TAB BEFORE BED FOR INSOMNIA [facility] HYDROXYZINE 25 mg tablet 2-0 -16 00:00: 00 Yes [id number] TAKE BY MOUTH 1 TABLET EVERY 6 HOURS NEEDED FOR ITCHING ( CAN TAKE 2 TAB BEFORE BED FOR INSOMNIA [facility] HYDROXYZINE 25 mg tablet 2-0 -16 00:00: 00 Yes [id number] TAKE BY MOUTH 1 TABLET EVERY 6 HOURS NEEDED FOR ITCHING ( CAN TAKE 2 TAB BEFORE BED FOR INSOMNIA [facility] HYDROXYZINE 25 mg tablet 2-0 7-16 00:00: 00 Yes [id number] TAKE BY MOUTH 1 TABLET EVERY 6 HOURS NEEDED FOR ITCHING ( CAN TAKE 2 TAB BEFORE BED FOR INSOMNIA [facility] HYDROXYZINE 25 mg tablet 2-0 -16 00:00: 00 Yes [id number] TAKE BY MOUTH 1 TABLET EVERY 6 HOURS NEEDED FOR ITCHING ( CAN TAKE 2 TAB BEFORE BED FOR INSOMNIA [facility] HYDROXYZINE 25 mg tablet 2-0 -16 00:00: 00 Yes [id number] TAKE BY MOUTH 1 TABLET EVERY 6 HOURS NEEDED FOR ITCHING ( CAN TAKE 2 TAB BEFORE BED FOR [facility]OMNIA [facility] 2-0 -16 00:00: 00 Yes [id number] TAKE BY MOUTH 1 TABLET EVERY 6 HOURS NEEDED FOR ITCHING ( CAN TAKE 2 TAB BEFORE BED FOR INSOMNIA [facility] HYDROXYZINE 25 mg tablet 2-0 -16 00:00: 00 Yes [id number] TAKE BY MOUTH 1 TABLET EVERY 6 HOURS NEEDED FOR ITCHING ( CAN TAKE 2 TAB BEFORE BED FOR INSOMNIA [facility] HYDROXYZINE 25 mg tablet 2-0 -16 00:00: 00 Yes [id number] TAKE BY MOUTH 1 TABLET EVERY 6 HOURS NEEDED FOR ITCHING ( CAN TAKE 2 TAB BEFORE BED FOR INSOMNIA [facility] HYDROXYZINE 25 mg tablet 2-0 -16 00:00: 00 Yes [id number] TAKE BY MOUTH 1 TABLET EVERY 6 HOURS NEEDED FOR ITCHING ( CAN TAKE 2 TAB BEFORE BED FOR INSOMNIA [facility] HYDROXYZINE 25 mg tablet 2-0 -16 00:00: 00 Yes [id number] TAKE BY MOUTH 1 TABLET EVERY 6 HOURS NEEDED FOR ITCHING ( CAN TAKE 2 TAB BEFORE BED FOR INSOMNIA [facility] HYDROXYZINE 25 mg tablet 2-0 -16 00:00: 00 Yes [id number] TAKE BY MOUTH 1 TABLET EVERY 6 HOURS NEEDED FOR ITCHING ( CAN TAKE 2 TAB BEFORE BED FOR INSOMNIA [facility] HYDROXYZINE 25 mg tablet 2-0 -16 00:00: 00 Yes [id number] TAKE BY MOUTH 1 TABLET EVERY 6 HOURS NEEDED FOR ITCHING ( CAN TAKE 2 TAB BEFORE BED FOR INSOMNIA [facility] HYDROXYZINE 25 mg tablet 2-0 7-16 00:00: 00 Yes [id number] TAKE BY MOUTH 1 TABLET EVERY 6 HOURS NEEDED FOR ITCHING ( CAN TAKE 2 TAB BEFORE BED FOR INSOMNIA [facility] HYDROXYZINE 25 mg tablet 2-0 -16 00:00: 00 Yes [id number] TAKE BY MOUTH 1 TABLET EVERY 6 HOURS NEEDED FOR ITCHING ( CAN TAKE 2 TAB BEFORE BED FOR INSOMNIA [facility] HYDROXYZINE 25 mg tablet 2021-0 -16 00:00: 00 Yes [id number] TAKE BY MOUTH 1 TABLET EVERY 6 HOURS NEEDED FOR ITCHING ( CAN TAKE 2 TAB BEFORE BED FOR INSOMNIA [facility] HYDROXYZINE 25 mg tablet 2-0 -16 00:00: 00 Yes [id number] TAKE BY MOUTH 1 TABLET EVERY 6 HOURS NEEDED FOR ITCHING ( CAN TAKE 2 TAB BEFORE BED FOR INSOMNIA [facility] HYDROXYZINE 25 mg tablet 2021-0 -16 00:00: 00 Yes [id number] TAKE BY MOUTH 1 TABLET EVERY 6 HOURS NEEDED FOR ITCHING ( CAN TAKE 2 TAB BEFORE BED FOR INSOMNIA [facility] HYDROXYZINE 25 mg tablet 2021-0 16 00:00: 00 Yes [id number] TAKE BY MOUTH 1 TABLET EVERY 6 HOURS NEEDED FOR ITCHING ( CAN TAKE 2 TAB BEFORE BED FOR INSOMNIA [facility] HYDROXYZINE 25 mg tablet 2021-0 16 00:00: 00 Yes [id number] TAKE BY MOUTH 1 TABLET EVERY 6 HOURS NEEDED FOR ITCHING ( CAN TAKE 2 TAB BEFORE BED FOR INSOMNIA [facility] HYDROXYZINE 25 mg tablet 2-0 16 00:00: 00 Yes [id number] TAKE BY MOUTH 1 TABLET EVERY 6 HOURS NEEDED FOR ITCHING ( CAN TAKE 2 TAB BEFORE BED FOR INSOMNIA [facility] HYDROXYZINE 25 mg tablet 2-0 -16 00:00: 00 Yes [id number] TAKE BY MOUTH 1 TABLET EVERY 6 HOURS NEEDED FOR ITCHING ( CAN TAKE 2 TAB BEFORE BED FOR INSOMNIA [facility] HYDROXYZINE 25 mg tablet 2-0 -16 00:00: 00 Yes [id number] TAKE BY MOUTH 1 TABLET EVERY 6 HOURS NEEDED FOR ITCHING ( CAN TAKE 2 TAB BEFORE BED FOR INSOMNIA [facility] HYDROXYZINE 25 mg tablet 2-0 7-16 00:00: 00 Yes [id number] TAKE BY MOUTH 1 TABLET EVERY 6 HOURS NEEDED FOR ITCHING ( CAN TAKE 2 TAB BEFORE BED FOR INSOMNIA [facility] HYDROXYZINE 25 mg tablet 2021-0 16 00:00: 00 Yes [id number] TAKE BY MOUTH 1 TABLET EVERY 6 HOURS NEEDED FOR ITCHING ( CAN TAKE 2 TAB BEFORE BED FOR INSOMNIA [facility] HYDROXYZINE 25 mg tablet 2021-0 16 00:00: 00 Yes [id number] TAKE BY MOUTH 1 TABLET EVERY 6 HOURS NEEDED FOR ITCHING ( CAN TAKE 2 TAB BEFORE BED FOR INSOMNIA [facility] HYDROXYZINE 25 mg tablet 2021-0 16 00:00: 00 Yes [id number] TAKE BY MOUTH 1 TABLET EVERY 6 HOURS NEEDED FOR ITCHING ( CAN TAKE 2 TAB BEFORE BED FOR INSOMNIA [facility] HYDROXYZINE 25 mg tablet 2021-0 16 00:00: 00 Yes [id number] TAKE BY MOUTH 1 TABLET EVERY 6 HOURS NEEDED FOR ITCHING ( CAN TAKE 2 TAB BEFORE BED FOR INSOMNIA [facility] HYDROXYZINE 25 mg tablet 2021-0 16 00:00: 00 Yes [id number] TAKE BY MOUTH 1 TABLET EVERY 6 HOURS NEEDED FOR ITCHING ( CAN TAKE 2 TAB BEFORE BED FOR INSOMNIA [facility] HYDROXYZINE 25 mg tablet 2021-0 16 00:00: 00 Yes [id number] TAKE BY MOUTH 1 TABLET EVERY 6 HOURS NEEDED FOR ITCHING ( CAN TAKE 2 TAB BEFORE BED FOR INSOMNIA [facility] HYDROXYZINE 25 mg tablet 2021-0 16 00:00: 00 Yes [id number] TAKE BY MOUTH 1 TABLET EVERY 6 HOURS NEEDED FOR ITCHING ( CAN TAKE 2 TAB BEFORE BED FOR INSOMNIA [facility] HYDROXYZINE 25 mg tablet 2-0 16 00:00: 00 Yes [id number] TAKE BY MOUTH 1 TABLET EVERY 6 HOURS NEEDED FOR ITCHING ( CAN TAKE 2 TAB BEFORE BED FOR INSOMNIA [facility] HYDROXYZINE 25 mg tablet 2-0 16 00:00: 00 Yes [id number] TAKE BY MOUTH 1 TABLET EVERY 6 HOURS NEEDED FOR ITCHING ( CAN TAKE 2 TAB BEFORE BED FOR INSOMNIA [facility] HYDROXYZINE 25 mg tablet 2021-0 -16 00:00: 00 Yes [id number] TAKE BY MOUTH 1 TABLET EVERY 6 HOURS NEEDED FOR ITCHING ( CAN TAKE 2 TAB BEFORE BED FOR INSOMNIA [facility] HYDROXYZINE 25 mg tablet 2021-0 -16 00:00: 00 Yes [id number] TAKE BY MOUTH 1 TABLET EVERY 6 HOURS NEEDED FOR ITCHING ( CAN TAKE 2 TAB BEFORE BED FOR INSOMNIA [facility] HYDROXYZINE 25 mg tablet 2021-0 -16 00:00: 00 Yes [id number] TAKE BY MOUTH 1 TABLET EVERY 6 HOURS NEEDED FOR ITCHING ( CAN TAKE 2 TAB BEFORE BED FOR INSOMNIA [facility] HYDROXYZINE 25 mg tablet 2021-0 16 00:00: 00 Yes [id number] TAKE BY MOUTH 1 TABLET EVERY 6 HOURS NEEDED FOR ITCHING ( CAN TAKE 2 TAB BEFORE BED FOR INSOMNIA [facility] HYDROXYZINE 25 mg tablet 2-0 -16 00:00: 00 Yes [id number] TAKE BY MOUTH 1 TABLET EVERY 6 HOURS NEEDED FOR ITCHING ( CAN TAKE 2 TAB BEFORE BED FOR INSOMNIA [facility] HYDROXYZINE 25 mg tablet 2021-0 16 00:00: 00 Yes [id number] TAKE BY MOUTH 1 TABLET EVERY 6 HOURS NEEDED FOR ITCHING ( CAN TAKE 2 TAB BEFORE BED FOR INSOMNIA [facility] HYDROXYZINE 25 mg tablet 2021-0 16 00:00: 00 Yes [id number] TAKE BY MOUTH 1 TABLET EVERY 6 HOURS NEEDED FOR ITCHING ( CAN TAKE 2 TAB BEFORE BED FOR INSOMNIA [facility] HYDROXYZINE 25 mg tablet 2-0 16 00:00: 00 Yes [id number] TAKE BY MOUTH 1 TABLET EVERY 6 HOURS NEEDED FOR ITCHING ( CAN TAKE 2 TAB BEFORE BED FOR INSOMNIA [facility] HYDROXYZINE 25 mg tablet 2-0 -16 00:00: 00 Yes [id number] TAKE BY MOUTH 1 TABLET EVERY 6 HOURS NEEDED FOR ITCHING ( CAN TAKE 2 TAB BEFORE BED FOR INSOMNIA [facility] HYDROXYZINE 25 mg tablet 2-0 -16 00:00: 00 Yes [id number] TAKE BY MOUTH 1 TABLET EVERY 6 HOURS NEEDED FOR ITCHING ( CAN TAKE 2 TAB BEFORE BED FOR INSOMNIA [facility] HYDROXYZINE 25 mg tablet 2-0 7-16 00:00: 00 Yes [id number] TAKE BY MOUTH 1 TABLET EVERY 6 HOURS NEEDED FOR ITCHING ( CAN TAKE 2 TAB BEFORE BED FOR INSOMNIA [facility] HYDROXYZINE 25 mg tablet 2-0 -16 00:00: 00 Yes [id number] TAKE BY MOUTH 1 TABLET EVERY 6 HOURS NEEDED FOR ITCHING ( CAN TAKE 2 TAB BEFORE BED FOR INSOMNIA [facility] HYDROXYZINE 25 mg tablet 2-0 -16 00:00: 00 Yes [id number] TAKE BY MOUTH 1 TABLET EVERY 6 HOURS NEEDED FOR ITCHING ( CAN TAKE 2 TAB BEFORE BED FOR INSOMNIA [facility] HYDROXYZINE 25 mg tablet 2-0 -16 00:00: 00 Yes [id number] TAKE BY MOUTH 1 TABLET EVERY 6 HOURS NEEDED FOR ITCHING ( CAN TAKE 2 TAB BEFORE BED FOR INSOMNIA [facility] HYDROXYZINE 25 mg tablet 2-0 -16 00:00: 00 Yes [id number] TAKE BY MOUTH 1 TABLET EVERY 6 HOURS NEEDED FOR ITCHING ( CAN TAKE 2 TAB BEFORE BED FOR INSOMNIA [facility] HYDROXYZINE 25 mg tablet 2-0 -16 00:00: 00 Yes [id number] TAKE BY MOUTH 1 TABLET EVERY 6 HOURS NEEDED FOR ITCHING ( CAN TAKE 2 TAB BEFORE BED FOR INSOMNIA [facility] HYDROXYZINE 25 mg tablet 2-0 -16 00:00: 00 Yes [id number] TAKE BY MOUTH 1 TABLET EVERY 6 HOURS NEEDED FOR ITCHING ( CAN TAKE 2 TAB BEFORE BED FOR INSOMNIA [facility] HYDROXYZINE 25 mg tablet 2-0 -16 00:00: 00 Yes [id number] TAKE BY MOUTH 1 TABLET EVERY 6 HOURS NEEDED FOR ITCHING ( CAN TAKE 2 TAB BEFORE BED FOR INSOMNIA [facility] HYDROXYZINE 25 mg tablet 2-0 -16 00:00: 00 Yes [id number] TAKE BY MOUTH 1 TABLET EVERY 6 HOURS NEEDED FOR ITCHING ( CAN TAKE 2 TAB BEFORE BED FOR INSOMNIA [facility] HYDROXYZINE 25 mg tablet 2-0 7-16 00:00: 00 Yes [id number] TAKE BY MOUTH 1 TABLET EVERY 6 HOURS NEEDED FOR ITCHING ( CAN TAKE 2 TAB BEFORE BED FOR INSOMNIA [facility] HYDROXYZINE 25 mg tablet 2021-0 -16 00:00: 00 Yes [id number] TAKE BY MOUTH 1 TABLET EVERY 6 HOURS NEEDED FOR ITCHING ( CAN TAKE 2 TAB BEFORE BED FOR INSOMNIA [facility] HYDROXYZINE 25 mg tablet 2-0 -16 00:00: 00 Yes [id number] TAKE BY MOUTH 1 TABLET EVERY 6 HOURS NEEDED FOR ITCHING ( CAN TAKE 2 TAB BEFORE BED FOR INSOMNIA [facility] HYDROXYZINE 25 mg tablet 2021-0 -16 00:00: 00 Yes [id number] TAKE BY MOUTH 1 TABLET EVERY 6 HOURS NEEDED FOR ITCHING ( CAN TAKE 2 TAB BEFORE BED FOR INSOMNIA [facility] HYDROXYZINE 25 mg tablet 2-0 -16 00:00: 00 Yes [id number] TAKE BY MOUTH 1 TABLET EVERY 6 HOURS NEEDED FOR ITCHING ( CAN TAKE 2 TAB BEFORE BED FOR INSOMNIA [facility] HYDROXYZINE 25 mg tablet 2021-0 -16 00:00: 00 Yes [id number] TAKE BY MOUTH 1 TABLET EVERY 6 HOURS NEEDED FOR ITCHING ( CAN TAKE 2 TAB BEFORE BED FOR INSOMNIA [facility] HYDROXYZINE 25 mg tablet 2021-0 -16 00:00: 00 Yes [id number] TAKE BY MOUTH 1 TABLET EVERY 6 HOURS NEEDED FOR ITCHING ( CAN TAKE 2 TAB BEFORE BED FOR INSOMNIA [facility] HYDROXYZINE 25 mg tablet 2-0 -16 00:00: 00 Yes [id number] TAKE BY MOUTH 1 TABLET EVERY 6 HOURS NEEDED FOR ITCHING ( CAN TAKE 2 TAB BEFORE BED FOR INSOMNIA [facility] HYDROXYZINE 25 mg tablet 2-0 -16 00:00: 00 Yes [id number] TAKE BY MOUTH 1 TABLET EVERY 6 HOURS NEEDED FOR ITCHING ( CAN TAKE 2 TAB BEFORE BED FOR INSOMNIA [facility] HYDROXYZINE 25 mg tablet 2-0 -16 00:00: 00 Yes [id number] TAKE BY MOUTH 1 TABLET EVERY 6 HOURS NEEDED FOR ITCHING ( CAN TAKE 2 TAB BEFORE BED FOR INSOMNIA [facility] HYDROXYZINE 25 mg tablet 2-0 7-16 00:00: 00 Yes [id number] TAKE BY MOUTH 1 TABLET EVERY 6 HOURS NEEDED FOR ITCHING ( CAN TAKE 2 TAB BEFORE BED FOR INSOMNIA [facility] HYDROXYZINE 25 mg tablet 2-0 -16 00:00: 00 Yes [id number] TAKE BY MOUTH 1 TABLET EVERY 6 HOURS NEEDED FOR ITCHING ( CAN TAKE 2 TAB BEFORE BED FOR INSOMNIA [facility] HYDROXYZINE 25 mg tablet 2021-0 -16 00:00: 00 Yes [id number] TAKE BY MOUTH 1 TABLET EVERY 6 HOURS NEEDED FOR ITCHING ( CAN TAKE 2 TAB BEFORE BED FOR INSOMNIA [facility] HYDROXYZINE 25 mg tablet 2-0 -16 00:00: 00 Yes [id number] TAKE BY MOUTH 1 TABLET EVERY 6 HOURS NEEDED FOR ITCHING ( CAN TAKE 2 TAB BEFORE BED FOR INSOMNIA [facility] HYDROXYZINE 25 mg tablet 2021-0 -16 00:00: 00 Yes [id number] TAKE BY MOUTH 1 TABLET EVERY 6 HOURS NEEDED FOR ITCHING ( CAN TAKE 2 TAB BEFORE BED FOR INSOMNIA [facility] HYDROXYZINE 25 mg tablet 2021-0 16 00:00: 00 Yes [id number] TAKE BY MOUTH 1 TABLET EVERY 6 HOURS NEEDED FOR ITCHING ( CAN TAKE 2 TAB BEFORE BED FOR INSOMNIA [facility] HYDROXYZINE 25 mg tablet 2021-0 16 00:00: 00 Yes [id number] TAKE BY MOUTH 1 TABLET EVERY 6 HOURS NEEDED FOR ITCHING ( CAN TAKE 2 TAB BEFORE BED FOR INSOMNIA [facility] HYDROXYZINE 25 mg tablet 2-0 -16 00:00: 00 Yes [id number] TAKE BY MOUTH 1 TABLET EVERY 6 HOURS NEEDED FOR ITCHING ( CAN TAKE 2 TAB BEFORE BED FOR INSOMNIA [facility] HYDROXYZINE 25 mg tablet 2-0 -16 00:00: 00 Yes [id number] TAKE BY MOUTH 1 TABLET EVERY 6 HOURS NEEDED FOR ITCHING ( CAN TAKE 2 TAB BEFORE BED FOR INSOMNIA [facility] HYDROXYZINE 25 mg tablet 2-0 -16 00:00: 00 Yes [id number] TAKE BY MOUTH 1 TABLET EVERY 6 HOURS NEEDED FOR ITCHING ( CAN TAKE 2 TAB BEFORE BED FOR INSOMNIA [facility] HYDROXYZINE 25 mg tablet 2-0 -16 00:00: 00 Yes [id number] TAKE BY MOUTH 1 TABLET EVERY 6 HOURS NEEDED FOR ITCHING ( CAN TAKE 2 TAB BEFORE BED FOR INSOMNIA [facility] HYDROXYZINE 25 mg tablet 2021-0 -16 00:00: 00 Yes [id number] TAKE BY MOUTH 1 TABLET EVERY 6 HOURS NEEDED FOR ITCHING ( CAN TAKE 2 TAB BEFORE BED FOR INSOMNIA [facility] HYDROXYZINE 25 mg tablet 2-0 -16 00:00: 00 Yes [id number] TAKE BY MOUTH 1 TABLET EVERY 6 HOURS NEEDED FOR ITCHING ( CAN TAKE 2 TAB BEFORE BED FOR INSOMNIA [facility] HYDROXYZINE 25 mg tablet 2021-0 -16 00:00: 00 Yes [id number] TAKE BY MOUTH 1 TABLET EVERY 6 HOURS NEEDED FOR ITCHING ( CAN TAKE 2 TAB BEFORE BED FOR INSOMNIA [facility] HYDROXYZINE 25 mg tablet 2-0 -16 00:00: 00 Yes [id number] TAKE BY MOUTH 1 TABLET EVERY 6 HOURS NEEDED FOR ITCHING ( CAN TAKE 2 TAB BEFORE BED FOR INSOMNIA [facility] HYDROXYZINE 25 mg tablet 2021-0 16 00:00: 00 Yes [id number] TAKE BY MOUTH 1 TABLET EVERY 6 HOURS NEEDED FOR ITCHING ( CAN TAKE 2 TAB BEFORE BED FOR INSOMNIA [facility] HYDROXYZINE 25 mg tablet 2021-0 16 00:00: 00 Yes [id number] TAKE BY MOUTH 1 TABLET EVERY 6 HOURS NEEDED FOR ITCHING ( CAN TAKE 2 TAB BEFORE BED FOR INSOMNIA [facility] HYDROXYZINE 25 mg tablet 2-0 16 00:00: 00 Yes [id number] TAKE BY MOUTH 1 TABLET EVERY 6 HOURS NEEDED FOR ITCHING ( CAN TAKE 2 TAB BEFORE BED FOR INSOMNIA [facility] HYDROXYZINE 25 mg tablet 2-0 -16 00:00: 00 Yes [id number] TAKE BY MOUTH 1 TABLET EVERY 6 HOURS NEEDED FOR ITCHING ( CAN TAKE 2 TAB BEFORE BED FOR INSOMNIA [facility] HYDROXYZINE 25 mg tablet 2-0 -16 00:00: 00 Yes [id number] TAKE BY MOUTH 1 TABLET EVERY 6 HOURS NEEDED FOR ITCHING ( CAN TAKE 2 TAB BEFORE BED FOR INSOMNIA [facility] HYDROXYZINE 25 mg tablet 2021-0 16 00:00: 00 Yes [id number] TAKE BY MOUTH 1 TABLET EVERY 6 HOURS NEEDED FOR ITCHING ( CAN TAKE 2 TAB BEFORE BED FOR INSOMNIA [facility] HYDROXYZINE 25 mg tablet 2021-0 16 00:00: 00 Yes [id number] TAKE BY MOUTH 1 TABLET EVERY 6 HOURS NEEDED FOR ITCHING ( CAN TAKE 2 TAB BEFORE BED FOR INSOMNIA [facility] HYDROXYZINE 25 mg tablet 2021-0 16 00:00: 00 Yes [id number] TAKE BY MOUTH 1 TABLET EVERY 6 HOURS NEEDED FOR ITCHING ( CAN TAKE 2 TAB BEFORE BED FOR INSOMNIA [facility] HYDROXYZINE 25 mg tablet 2021-0 16 00:00: 00 Yes [id number] TAKE BY MOUTH 1 TABLET EVERY 6 HOURS NEEDED FOR ITCHING ( CAN TAKE 2 TAB BEFORE BED FOR INSOMNIA [facility] HYDROXYZINE 25 mg tablet 2021-0 16 00:00: 00 Yes [id number] TAKE BY MOUTH 1 TABLET EVERY 6 HOURS NEEDED FOR ITCHING ( CAN TAKE 2 TAB BEFORE BED FOR INSOMNIA [facility] HYDROXYZINE 25 mg tablet 2021-0 16 00:00: 00 Yes [id number] TAKE BY MOUTH 1 TABLET EVERY 6 HOURS NEEDED FOR ITCHING ( CAN TAKE 2 TAB BEFORE BED FOR INSOMNIA [facility] HYDROXYZINE 25 mg tablet 2021-0 16 00:00: 00 Yes [id number] TAKE BY MOUTH 1 TABLET EVERY 6 HOURS NEEDED FOR ITCHING ( CAN TAKE 2 TAB BEFORE BED FOR INSOMNIA [facility] HYDROXYZINE 25 mg tablet 2021-0 16 00:00: 00 Yes [id number] TAKE BY MOUTH 1 TABLET EVERY 6 HOURS NEEDED FOR ITCHING ( CAN TAKE 2 TAB BEFORE BED FOR INSOMNIA [facility] HYDROXYZINE 25 mg tablet 2021-0 16 00:00: 00 Yes [id number] TAKE BY MOUTH 1 TABLET EVERY 6 HOURS NEEDED FOR ITCHING ( CAN TAKE 2 TAB BEFORE BED FOR INSOMNIA [facility] HYDROXYZINE 25 mg tablet 2-0 -16 00:00: 00 Yes [id number] TAKE BY MOUTH 1 TABLET EVERY 6 HOURS NEEDED FOR ITCHING ( CAN TAKE 2 TAB BEFORE BED FOR INSOMNIA [facility] HYDROXYZINE 25 mg tablet 2-0 7-16 00:00: 00 Yes [id number] TAKE BY MOUTH 1 TABLET EVERY 6 HOURS NEEDED FOR ITCHING ( CAN TAKE 2 TAB BEFORE BED FOR INSOMNIA [facility] HYDROXYZINE 25 mg tablet 2-0 -16 00:00: 00 Yes [id number] TAKE BY MOUTH 1 TABLET EVERY 6 HOURS NEEDED FOR ITCHING ( CAN TAKE 2 TAB BEFORE BED FOR INSOMNIA [facility] HYDROXYZINE 25 mg tablet 2-0 -16 00:00: 00 Yes [id number] TAKE BY MOUTH 1 TABLET EVERY 6 HOURS NEEDED FOR ITCHING ( CAN TAKE 2 TAB [facility] 2-0 -16 00:00: 00 Yes [id number] TAKE BY MOUTH 1 TABLET EVERY 6 HOURS NEEDED FOR ITCHING ( CAN TAKE 2 TAB BEFORE BED FOR INSOMNIA [facility] HYDROXYZINE 25 mg tablet 2-0 -16 00:00: 00 Yes [id number] TAKE BY MOUTH 1 TABLET EVERY 6 HOURS NEEDED FOR ITCHING ( CAN TAKE 2 TAB BEFORE [facility] 2-0 -16 00:00: 00 Yes [id number] TAKE BY MOUTH 1 TABLET EVERY 6 HOURS NEEDED FOR ITCHING ( CAN TAKE 2 TAB BEFORE BED FOR INSOMNIA [facility] HYDROXYZINE 25 mg tablet 2-0 -16 00:00: 00 Yes [id number] TAKE BY MOUTH 1 TABLET EVERY 6 HOURS NEEDED FOR ITCHING ( CAN TAKE 2 TAB BEFORE BED FOR INSOMNIA [facility] HYDROXYZINE 25 mg tablet 2-0 -16 00:00: 00 Yes [id number] TAKE BY MOUTH 1 TABLET EVERY 6 HOURS NEEDED FOR ITCHING ( CAN TAKE 2 TAB BEFORE BED [facility]OMNIA [facility] 2-0 7-16 00:00: 00 Yes [id number] TAKE BY MOUTH 1 TABLET EVERY 6 HOURS NEEDED FOR ITCHING ( CAN TAKE 2 TAB BEFORE BED FOR [facility]OMNIA [facility] tablet 2022-0 7-16 00:00: 00 Yes [id number] TAKE BY MOUTH 1 TABLET EVERY 6 HOURS NEEDED FOR ITCHING ( CAN TAKE 2 TAB BEFORE BED FOR INSOMNIA [facility] HYDROXYZINE 25 mg tablet 2-0 7-16 00:00: 00 Yes [id number] TAKE BY MOUTH 1 TABLET EVERY 6 HOURS NEEDED FOR ITCHING ( CAN TAKE 2 TAB BEFORE BED FOR INSOMNIA [facility] HYDROXYZINE 25 mg tablet 2-0 7-16 00:00: 00 Yes [id number] TAKE BY MOUTH 1 TABLET EVERY 6 HOURS NEEDED FOR ITCHING ( CAN TAKE 2 TAB BEFORE BED FOR INSOMNIA [facility] HYDROXYZINE 25 mg tablet 2021-0 -16 00:00: 00 Yes [id number] TAKE BY MOUTH 1 TABLET EVERY 6 HOURS NEEDED FOR ITCHING ( CAN TAKE 2 TAB BEFORE BED FOR INSOMNIA [facility] HYDROXYZINE 25 mg tablet 2021-0 -16 00:00: 00 Yes [id number] TAKE BY MOUTH 1 TABLET EVERY 6 HOURS NEEDED FOR ITCHING ( CAN TAKE 2 TAB BEFORE BED FOR INSOMNIA [facility] HYDROXYZINE 25 mg tablet 2021-0 -16 00:00: 00 Yes [id number] TAKE BY MOUTH 1 TABLET EVERY 6 HOURS NEEDED FOR ITCHING ( CAN TAKE 2 TAB BEFORE BED FOR INSOMNIA [facility] HYDROXYZINE 25 mg tablet 2021-0 -16 00:00: 00 Yes [id number] TAKE BY MOUTH 1 TABLET EVERY 6 HOURS NEEDED FOR ITCHING ( CAN TAKE 2 TAB BEFORE BED FOR INSOMNIA [facility] HYDROXYZINE 25 mg tablet 2021-0 7-16 00:00: 00 02-26 00:00 :00 No [id number] TAKE BY MOUTH 1 TABLET EVERY 6 HOURS NEEDED FOR ITCHING ( CAN TAKE 2 TAB BEFORE BED FOR INSOMNIA [facility] HYDROXYZINE 25 mg tablet 2021-0 7-16 00:00: 00 02-26 00:00 :00 No [id number] TAKE BY MOUTH 1 TABLET EVERY 6 HOURS NEEDED FOR ITCHING ( CAN TAKE 2 TAB BEFORE BED FOR INSOMNIA [facility] HYDROXYZINE 25 mg tablet 2-0 7-16 00:00: 00 02-26 00:00 :00 No [id number] TAKE BY MOUTH 1 TABLET EVERY 6 HOURS NEEDED FOR ITCHING ( CAN TAKE 2 TAB BEFORE BED FOR INSOMNIA [facility] HYDROXYZINE 25 mg tablet 16 00:00: 00 02-26 00:00 :00 No [id number] TAKE BY MOUTH 1 TABLET EVERY 6 HOURS NEEDED FOR ITCHING ( CAN TAKE 2 TAB BEFORE BED FOR INSOMNIA [facility] HYDROXYZINE 25 mg tablet 16 00:00: 00 02-26 00:00 :00 No [id number] TAKE BY MOUTH 1 TABLET EVERY 6 HOURS NEEDED FOR ITCHING ( CAN TAKE 2 TAB BEFORE BED FOR INSOMNIA [facility] HYDROXYZINE 25 mg tablet 06-14 00:00: 00 02-26 00:00 :00 No [id number] TAKE BY MOUTH 1 TABLET EVERY 6 HOURS NEEDED FOR ITCHING ( CAN TAKE 2 TAB BEFORE BED FOR INSOMNIA [facility] HYDROXYZINE 25 mg tablet 06-14 00:00: 00 02-26 00:00 :00 No [id number] TAKE BY MOUTH 1 TABLET EVERY 6 HOURS NEEDED FOR ITCHING ( CAN TAKE 2 TAB BEFORE BED FOR INSOMNIA [facility] HYDROXYZINE 25 mg tablet 06-14 00:00: 00 02-26 00:00 :00 No [id number] TAKE BY MOUTH 1 TABLET EVERY 6 HOURS NEEDED FOR ITCHING ( CAN TAKE 2 TAB BEFORE BED FOR INSOMNIA [facility] hydrOXYzine 25 mg tablet 03-31 00:00: 00 05-31 04:59 :00 No [id number] 25mg Take 1 tablet by mouth every 6 (six) hours as needed for Itching (can take 2 before bed for insomnia) for up to 60 days. [facility] traMADoL 50 mg tablet 15 00:00: 00 Yes TAKE 1 TABLET BY MOUTH THREE TIMES A DAY NEEDED FOR PAIN [facility] cephALEXin 500 mg capsule 04-08 00:00: 00 Yes [facility] atorvastati n 40 mg tablet 04-02 00:00: 00 Yes [facility] ergocalcife rol, vitamin d2, 1,250 mcg (50,000 unit) capsule -04 00:00: 00 Yes [facility] zolpidem 10 mg tablet 2020-0 03-21 00:00: 00 Yes [facility] Vital Signs Vital Name Observation Time Observation Value Comments S madina Systolic blood pressure 2024-01-21 16:58:00 126 mm[Hg] [facility] Diastolic blood pressure 2024-01-21 16:58:00 64 mm[Hg] [facility] Heart rate 2024-01-21 16:58:00 76 /min [facility] Body temperature 2024-01-21 16:58:00 36.28 Mesha [facility] Respiratory rate 2024-01-21 16:58:00 17 /min [facility] Body height 2024-01-21 16:58:00 167.6 cm [facility] Body weight 2024-01-21 16:58:00 85.684 kg [facility] BMI 2024-01-21 16:58:00 30.49 kg/m2 [facility] Oxygen saturation in Arterial blood by Pulse oximetry 2024-01-21 16:58:00 94 /min [facility] Systolic blood pressure 2023-11-11 19:20:00 157 mm[Hg] [facility] Diastolic blood pressure 2023-11-11 19:20:00 64 mm[Hg] [facility] Heart rate 2023-11-11 19:20:00 59 /min [facility] Respiratory rate 2023-11-11 19:20:00 12 /min [facility] Oxygen saturation in Arterial blood by Pulse oximetry 2023-11-11 19:05:00 99 /min [facility] Systolic blood pressure 2023-11-09 15:03:00 147 mm[Hg] [facility] Diastolic blood pressure 2023-11-09 15:03:00 77 mm[Hg] [facility] Heart rate 2023-11-09 15:03:00 76 /min [facility] Body height 2023-11-09 15:03:00 167.6 cm [facility] Body weight 2023-11-09 15:03:00 90.084 kg [facility] BMI 2023-11-09 15:03:00 32.05 kg/m2 [facility] Oxygen saturation in Arterial blood by Pulse oximetry 2023-11-09 15:03:00 96 /min [facility] Systolic blood pressure 2023-10-15 17:18:00 156 mm[Hg] [facility] Diastolic blood pressure 2023-10-15 17:18:00 73 mm[Hg] [facility] Heart rate 2023-10-15 17:18:00 67 /min [facility] Body temperature 2023-10-15 17:17:00 36.28 Mesha [facility] Respiratory rate 2023-10-15 17:17:00 18 /min [facility] Body weight 2023-10-15 17:17:00 88.587 kg [facility] BMI 2023-10-15 17:17:00 30.59 kg/m2 [facility] Systolic blood pressure 2023-10-14 20:01:00 131 mm[Hg] [facility] Diastolic blood pressure 2023-10-14 20:01:00 82 mm[Hg] [facility] Heart rate 2023-10-14 20:01:00 73 /min [facility] Respiratory rate 2023-10-14 20:01:00 15 /min [facility] Body height 2023-10-14 20:01:00 170.2 cm [facility] Body weight 2023-10-14 20:01:00 87.998 kg [facility] BMI 2023-10-14 20:01:00 30.38 kg/m2 [facility] Oxygen saturation in Arterial blood by Pulse oximetry 2023-10-14 20:01:00 96 /min [facility] Systolic blood pressure 2023-10-09 19:23:00 144 mm[Hg] [facility] Diastolic blood pressure 2023-10-09 19:23:00 80 mm[Hg] [facility] Heart rate 2023-10-09 19:23:00 70 /min [facility] Body temperature 2023-10-09 19:23:00 36.56 Mesha [facility] Respiratory rate 2023-10-09 19:23:00 16 /min [facility] Body height 2023-10-09 19:23:00 170.2 cm [facility] Body weight 2023-10-09 19:23:00 87.68 kg [facility] BMI 2023-10-09 19:23:00 30.28 kg/m2 [facility] Oxygen saturation in Arterial blood by Pulse oximetry 2023-10-09 19:23:00 96 /min [facility] Systolic blood pressure 2023-09-24 15:48:00 144 mm[Hg] [facility] Diastolic blood pressure 2023-09-24 15:48:00 75 mm[Hg] [facility] Heart rate 2023-09-24 15:48:00 71 /min [facility] Oxygen saturation in Arterial blood by Pulse oximetry 2023-09-24 15:48:00 95 /min [facility] Systolic blood pressure 2023-09-24 15:48:00 144 mm[Hg] [facility] Diastolic blood pressure 2023-09-24 15:48:00 75 mm[Hg] [facility] Heart rate 2023-09-24 15:48:00 71 /min [facility] Oxygen saturation in Arterial blood by Pulse oximetry 2023-09-24 15:48:00 95 /min [facility] Body temperature 2023-09-24 15:47:00 35.83 Mesha [facility] Respiratory rate 2023-09-24 15:47:00 18 /min [facility] Body weight 2023-09-24 15:47:00 86.909 kg [facility] BMI 2023-09-24 15:47:00 30.01 kg/m2 [facility] Body temperature 2023-09-24 15:47:00 35.83 Mesha [facility] Respiratory rate 2023-09-24 15:47:00 18 /min [facility] Body weight 2023-09-24 15:47:00 86.909 kg [facility] BMI 2023-09-24 15:47:00 30.01 kg/m2 [facility] Systolic blood pressure 2023-09-03 15:55:00 146 mm[Hg] [facility] Diastolic blood pressure 2023-09-03 15:55:00 70 mm[Hg] [facility] Heart rate 2023-09-03 15:55:00 70 /min [facility] Body temperature 2023-09-03 15:55:00 35.56 Mesha [facility] Respiratory rate 2023-09-03 15:55:00 17 /min [facility] Body weight 2023-09-03 15:55:00 86.41 kg [facility] BMI 2023-09-03 15:55:00 29.84 kg/m2 [facility] Oxygen saturation in Arterial blood by Pulse oximetry 2023-09-03 15:55:00 99 /min [facility] Systolic blood pressure 2023-09-03 14:55:00 146 mm[Hg] [facility] Diastolic blood pressure 2023-09-03 14:55:00 70 mm[Hg] [facility] Heart rate 2023-09-03 14:55:00 72 /min [facility] Body temperature 2023-09-03 14:55:00 35.56 Mesha [facility] Respiratory rate 2023-09-03 14:55:00 16 /min [facility] Body weight 2023-09-03 14:55:00 86.41 kg [facility] BMI 2023-09-03 14:55:00 29.84 kg/m2 [facility] Oxygen saturation in Arterial blood by Pulse oximetry 2023-09-03 14:55:00 99 /min [facility] Systolic blood pressure 2023-08-13 16:22:00 138 mm[Hg] [facility] Diastolic blood pressure 2023-08-13 16:22:00 82 mm[Hg] [facility] Heart rate 2023-08-13 16:22:00 73 /min [facility] Body temperature 2023-08-13 16:22:00 35.56 Mesha [facility] Respiratory rate 2023-08-13 16:22:00 18 /min [facility] Body weight 2023-08-13 16:22:00 84.505 kg [facility] BMI 2023-08-13 16:22:00 29.18 kg/m2 [facility] Oxygen saturation in Arterial blood by Pulse oximetry 2023-08-13 16:22:00 98 /min [facility] Systolic blood pressure 2023-08-07 14:11:00 139 mm[Hg] [facility] Diastolic blood pressure 2023-08-07 14:11:00 66 mm[Hg] [facility] Heart rate 2023-08-07 14:11:00 70 /min [facility] Respiratory rate 2023-08-07 14:11:00 18 /min [facility] Body weight 2023-08-07 14:11:00 83.915 kg [facility] BMI 2023-08-07 14:11:00 28.98 kg/m2 [facility] Oxygen saturation in Arterial blood by Pulse oximetry 2023-08-07 14:11:00 98 /min [facility] Systolic blood pressure 2023-07-23 16:18:00 134 mm[Hg] [facility] Diastolic blood pressure 2023-07-23 16:18:00 69 mm[Hg] [facility] Heart rate 2023-07-23 16:18:00 71 /min [facility] Body temperature 2023-07-23 16:17:00 36.44 Mesha [facility] Respiratory rate 2023-07-23 16:17:00 19 /min [facility] Body weight 2023-07-23 16:17:00 82.509 kg [facility] BMI 2023-07-23 16:17:00 28.49 kg/m2 [facility] Oxygen saturation in Arterial blood by Pulse oximetry 2023-07-23 16:17:00 98 /min [facility] Systolic blood pressure 2023-07-06 14:43:00 153 mm[Hg] [facility] Diastolic blood pressure 2023-07-06 14:43:00 82 mm[Hg] [facility] Heart rate 2023-07-06 14:35:00 80 /min [facility] Respiratory rate 2023-07-06 14:35:00 18 /min [facility] Body height 2023-07-06 14:35:00 170.2 cm [facility] Body weight 2023-07-06 14:35:00 79.606 kg [facility] BMI 2023-07-06 14:35:00 27.49 kg/m2 [facility] Systolic blood pressure 2023-07-02 16:08:00 133 mm[Hg] [facility] Diastolic blood pressure 2023-07-02 16:08:00 64 mm[Hg] [facility] Heart rate 2023-07-02 16:08:00 69 /min [facility] Body temperature 2023-07-02 16:07:00 35.89 Mesha [facility] Respiratory rate 2023-07-02 16:07:00 18 /min [facility] Body weight 2023-07-02 16:07:00 82.101 kg [facility] BMI 2023-07-02 16:07:00 28.35 kg/m2 [facility] Oxygen saturation in Arterial blood by Pulse oximetry 2023-07-02 16:07:00 98 /min [facility] Systolic blood pressure 2023-06-01 13:58:00 127 mm[Hg] [facility] Diastolic blood pressure 2023-06-01 13:58:00 77 mm[Hg] [facility] Heart rate 2023-06-01 13:58:00 77 /min [facility] Body height 2023-06-01 13:58:00 170.2 cm [facility] Body weight 2023-06-01 13:58:00 78.064 kg [facility] BMI 2023-06-01 13:58:00 26.95 kg/m2 [facility] Oxygen saturation in Arterial blood by Pulse oximetry 2023-06-01 13:58:00 95 /min [facility] Systolic blood pressure 2023-05-21 16:34:00 135 mm[Hg] [facility] Diastolic blood pressure 2023-05-21 16:34:00 71 mm[Hg] [facility] Heart rate 2023-05-21 16:34:00 78 /min [facility] Body temperature 2023-05-21 16:34:00 35.94 Mesha [facility] Respiratory rate 2023-05-21 16:34:00 20 /min [facility] Body weight 2023-05-21 16:34:00 77.384 kg [facility] BMI 2023-05-21 16:34:00 26.72 kg/m2 [facility] Oxygen saturation in Arterial blood by Pulse oximetry 2023-05-21 16:34:00 96 /min [facility] Systolic blood pressure 2023-04-30 17:27:00 141 mm[Hg] [facility] Diastolic blood pressure 2023-04-30 17:27:00 80 mm[Hg] [facility] Heart rate 2023-04-30 17:27:00 69 /min [facility] Body temperature 2023-04-30 17:27:00 36 Mesha [facility] Respiratory rate 2023-04-30 17:27:00 18 /min [facility] Body weight 2023-04-30 17:27:00 75.4 kg [facility] BMI 2023-04-30 17:27:00 26.03 kg/m2 [facility] Oxygen saturation in Arterial blood by Pulse oximetry 2023-04-30 17:27:00 98 /min [facility] Systolic blood pressure 2023-04-30 16:19:00 150 mm[Hg] [facility] Diastolic blood pressure 2023-04-30 16:19:00 74 mm[Hg] [facility] Heart rate 2023-04-30 16:10:00 69 /min [facility] Body temperature 2023-04-30 16:10:00 36 Mesha [facility] Respiratory rate 2023-04-30 16:10:00 17 /min [facility] Body height 2023-04-30 16:10:00 170.2 cm [facility] Body weight 2023-04-30 16:10:00 75.433 kg [facility] BMI 2023-04-30 16:10:00 26.05 kg/m2 [facility] Oxygen saturation in Arterial blood by Pulse oximetry 2023-04-30 16:10:00 98 /min [facility] Systolic blood pressure 2023-04-09 16:10:00 137 mm[Hg] [facility] Diastolic blood pressure 2023-04-09 16:10:00 74 mm[Hg] [facility] Heart rate 2023-04-09 16:10:00 75 /min [facility] Body temperature 2023-04-09 16:10:00 35.89 Mesha [facility] Respiratory rate 2023-04-09 16:10:00 20 /min [facility] Body weight 2023-04-09 16:10:00 77.2 kg [facility] BMI 2023-04-09 16:10:00 26.66 kg/m2 [facility] Oxygen saturation in Arterial blood by Pulse oximetry 2023-04-09 16:10:00 98 /min [facility] Systolic blood pressure 2023-03-19 15:23:00 131 mm[Hg] [facility] Diastolic blood pressure 2023-03-19 15:23:00 85 mm[Hg] [facility] Heart rate 2023-03-19 15:23:00 85 /min [facility] Body temperature 2023-03-19 15:23:00 36.06 Mesha [facility] Respiratory rate 2023-03-19 15:23:00 16 /min [facility] Body weight 2023-03-19 15:23:00 75.8 kg [facility] BMI 2023-03-19 15:23:00 26.17 kg/m2 [facility] Oxygen saturation in Arterial blood by Pulse oximetry 2023-03-19 15:23:00 98 /min [facility] Systolic blood pressure 2023-03-19 14:33:00 131 mm[Hg] [facility] Diastolic blood pressure 2023-03-19 14:33:00 85 mm[Hg] [facility] Heart rate 2023-03-19 14:33:00 85 /min [facility] Body temperature 2023-03-19 14:33:00 36.06 Mesha [facility] Respiratory rate 2023-03-19 14:33:00 16 /min [facility] Body weight 2023-03-19 14:33:00 75.751 kg [facility] BMI 2023-03-19 14:33:00 26.16 kg/m2 [facility] Oxygen saturation in Arterial blood by Pulse oximetry 2023-03-19 14:33:00 98 /min [facility] Systolic blood pressure 2023-02-26 16:15:00 132 mm[Hg] [facility] Diastolic blood pressure 2023-02-26 16:15:00 80 mm[Hg] [facility] Heart rate 2023-02-26 16:15:00 92 /min [facility] Body temperature 2023-02-26 16:15:00 36.11 Mesha [facility] Respiratory rate 2023-02-26 16:15:00 20 /min [facility] Body weight 2023-02-26 16:15:00 77.7 kg [facility] BMI 2023-02-26 16:15:00 26.83 kg/m2 [facility] Oxygen saturation in Arterial blood by Pulse oximetry 2023-02-26 16:15:00 95 /min [facility] Systolic blood pressure 2023-02-26 15:09:00 132 mm[Hg] [facility] [facility] Di[facility] blood pressure 2023-02-26 15:09:00 80 mm[Hg] [facility] Heart rate 2023-02-26 15:09:00 92 /min [facility] Body temperature 2023-02-26 15:09:00 36.11 Mesha [facility] Respiratory rate 2023-02-26 15:09:00 17 /min [facility] Body height 2023-02-26 15:09:00 170.2 cm [facility] Body weight 2023-02-26 15:09:00 77.701 kg [facility] BMI 2023-02-26 15:09:00 26.83 kg/m2 [facility] Oxygen saturation in Arterial blood by Pulse oximetry 2023-02-26 15:09:00 95 /min [facility] Systolic blood pressure 2023-02-05 19:34:00 172 mm[Hg] [facility] Diastolic blood pressure 2023-02-05 19:34:00 150 mm[Hg] [facility] Heart rate 2023-02-05 19:34:00 85 /min [facility] Body temperature 2023-02-05 19:34:00 36.89 Mesha [facility] Respiratory rate 2023-02-05 19:34:00 20 /min [facility] Body height 2023-02-05 19:34:00 170.2 cm [facility] Body weight 2023-02-05 19:34:00 75.751 kg [facility] BMI 2023-02-05 19:34:00 26.16 kg/m2 [facility] Oxygen saturation in Arterial blood by Pulse oximetry 2023-02-05 19:34:00 98 /min [facility] Systolic blood pressure 2023-02-05 17:22:00 148 mm[Hg] [facility] Diastolic blood pressure 2023-02-05 17:22:00 111 mm[Hg] [facility] Heart rate 2023-02-05 17:22:00 69 /min [facility] Body temperature 2023-02-05 17:22:00 36.78 Mesha [facility] Respiratory rate 2023-02-05 17:22:00 16 /min [facility] Oxygen saturation in Arterial blood by Pulse oximetry 2023-02-05 17:22:00 97 /min [facility] Systolic blood pressure 2023-02-05 16:12:00 178 mm[Hg] Manual Reading [facility] Diastolic blood pressure 2023-02-05 16:12:00 98 mm[Hg] Manual Reading [facility] Heart rate 2023-02-05 15:57:00 79 /min [facility] Body temperature 2023-02-05 15:56:00 35.78 Mesha [facility] Respiratory rate 2023-02-05 15:56:00 16 /min [facility] Body height 2023-02-05 15:56:00 170.2 cm [facility] Body weight 2023-02-05 15:56:00 75.841 kg [facility] BMI 2023-02-05 15:56:00 26.19 kg/m2 [facility] Oxygen saturation in Arterial blood by Pulse oximetry 2023-02-05 15:56:00 98 /min [facility] Systolic blood pressure 2023-01-25 00:00:00 158 mm[Hg] [facility] Diastolic blood pressure 2023-01-25 00:00:00 83 mm[Hg] [facility] Heart rate 2023-01-25 00:00:00 63 /min [facility] Respiratory rate 2023-01-25 00:00:00 13 /min [facility] Oxygen saturation in Arterial blood by Pulse oximetry 2023-01-25 00:00:00 92 /min [facility] Body temperature 2023-01-24 21:56:00 36.72 Mesha [facility] Body height 2023-01-24 21:56:00 167.6 cm [facility] Body weight 2023-01-24 21:56:00 77.111 kg [facility] BMI 2023-01-24 21:56:00 27.44 kg/m2 [facility] Systolic blood pressure 2023-01-14 14:41:00 134 mm[Hg] [facility] Diastolic blood pressure 2023-01-14 14:41:00 70 mm[Hg] [facility] Heart rate 2023-01-14 14:34:00 78 /min [facility] Body temperature 2023-01-14 14:34:00 35.56 Mesha [facility] Respiratory rate 2023-01-14 14:34:00 18 /min [facility] Body height 2023-01-14 14:34:00 170.2 cm [facility] Body weight 2023-01-14 14:34:00 79.516 kg [facility] BMI 2023-01-14 14:34:00 27.46 kg/m2 [facility] Oxygen saturation in Arterial blood by Pulse oximetry 2023-01-14 14:34:00 97 /min [facility] Systolic blood pressure 2023-01-07 14:46:00 139 mm[Hg] [facility] Diastolic blood pressure 2023-01-07 14:46:00 78 mm[Hg] [facility] Heart rate 2023-01-07 14:44:00 80 /min [facility] Body temperature 2023-01-07 14:44:00 35.94 Mesha [facility] Respiratory rate 2023-01-07 14:44:00 16 /min [facility] Body weight 2023-01-07 14:44:00 79.9 kg [facility] BMI 2023-01-07 14:44:00 27.59 kg/m2 [facility] Oxygen saturation in Arterial blood by Pulse oximetry 2023-01-07 14:44:00 98 /min [facility] Systolic blood pressure 2022-12-31 18:39:00 156 mm[Hg] [facility] Diastolic blood pressure 2022-12-31 18:39:00 86 mm[Hg] [facility] Heart rate 2022-12-31 18:39:00 85 /min [facility] Body temperature 2022-12-31 18:39:00 36.28 Mesha [facility] Respiratory rate 2022-12-31 18:39:00 20 /min [facility] Body weight 2022-12-31 18:39:00 80.3 kg [facility] BMI 2022-12-31 18:39:00 27.73 kg/m2 [facility] Oxygen saturation in Arterial blood by Pulse oximetry 2022-12-31 18:39:00 98 /min [facility] Systolic blood pressure 2022-12-24 16:18:00 136 mm[Hg] [facility] Diastolic blood pressure 2022-12-24 16:18:00 73 mm[Hg] [facility] Heart rate 2022-12-24 16:18:00 77 /min [facility] Body temperature 2022-12-24 16:18:00 36 Mesha [facility] Respiratory rate 2022-12-24 16:18:00 18 /min [facility] Body weight 2022-12-24 16:18:00 80.3 kg [facility] BMI 2022-12-24 16:18:00 27.73 kg/m2 [facility] Oxygen saturation in Arterial blood by Pulse oximetry 2022-12-24 16:18:00 99 /min [facility] Systolic blood pressure 2022-12-24 14:44:00 136 mm[Hg] [facility] Diastolic blood pressure 2022-12-24 14:44:00 73 mm[Hg] [facility] Heart rate 2022-12-24 14:44:00 77 /min [facility] Body temperature 2022-12-24 14:44:00 36 Mesha [facility] Respiratory rate 2022-12-24 14:44:00 16 /min [facility] Body height 2022-12-24 14:44:00 170.2 cm [facility] Body weight 2022-12-24 14:44:00 80.287 kg [facility] BMI 2022-12-24 14:44:00 27.72 kg/m2 [facility] Oxygen saturation in Arterial blood by Pulse oximetry 2022-12-24 14:44:00 99 /min [facility] Systolic blood pressure 2022-12-17 15:49:00 158 mm[Hg] [facility] Diastolic blood pressure 2022-12-17 15:49:00 88 mm[Hg] [facility] Heart rate 2022-12-17 15:48:00 71 /min [facility] Body temperature 2022-12-17 15:48:00 35.44 Mesha [facility] Respiratory rate 2022-12-17 15:48:00 18 /min [facility] Body weight 2022-12-17 15:48:00 80.4 kg [facility] BMI 2022-12-17 15:48:00 27.35 kg/m2 [facility] Oxygen saturation in Arterial blood by Pulse oximetry 2022-12-17 15:48:00 98 /min [facility] Systolic blood pressure 2022-12-10 15:39:00 143 mm[Hg] [facility] Diastolic blood pressure 2022-12-10 15:39:00 71 mm[Hg] [facility] Heart rate 2022-12-10 15:24:00 80 /min [facility] Body temperature 2022-12-10 15:24:00 36.06 Mesha [facility] Respiratory rate 2022-12-10 15:24:00 18 /min [facility] Body weight 2022-12-10 15:24:00 81.8 kg [facility] BMI 2022-12-10 15:24:00 27.83 kg/m2 [facility] Oxygen saturation in Arterial blood by Pulse oximetry 2022-12-10 15:24:00 99 /min [facility] Systolic blood pressure 2022-12-04 16:13:00 162 mm[Hg] [facility] Diastolic blood pressure 2022-12-04 16:13:00 73 mm[Hg] [facility] Heart rate 2022-12-04 16:12:00 67 /min [facility] Body temperature 2022-12-04 16:12:00 35.44 Mesha [facility] Respiratory rate 2022-12-04 16:12:00 18 /min [facility] Body weight 2022-12-04 16:12:00 84.5 kg [facility] BMI 2022-12-04 16:12:00 28.75 kg/m2 [facility] Oxygen saturation in Arterial blood by Pulse oximetry 2022-12-04 16:12:00 97 /min [facility] Systolic blood pressure 2022-12-04 14:59:00 145 mm[Hg] [facility] Diastolic blood pressure 2022-12-04 14:59:00 69 mm[Hg] [facility] Heart rate 2022-12-04 14:52:00 72 /min [facility] Body temperature 2022-12-04 14:52:00 35.33 Mesha [facility] Respiratory rate 2022-12-04 14:52:00 17 /min [facility] Body height 2022-12-04 14:52:00 171.5 cm [facility] Body weight 2022-12-04 14:52:00 84.55 kg [facility] BMI 2022-12-04 14:52:00 28.76 kg/m2 [facility] Oxygen saturation in Arterial blood by Pulse oximetry 2022-12-04 14:52:00 98 /min [facility] Systolic blood pressure 2022-11-27 17:50:00 167 mm[Hg] [facility] Diastolic blood pressure 2022-11-27 17:50:00 89 mm[Hg] [facility] Heart rate 2022-11-27 17:50:00 78 /min [facility] Respiratory rate 2022-11-27 17:50:00 16 /min [facility] Oxygen saturation in Arterial blood by Pulse oximetry 2022-11-27 17:50:00 96 /min [facility] Body temperature 2022-11-27 17:20:00 35.28 Mesha [facility] Body height 2022-11-27 14:43:00 171.5 cm [facility] Body weight 2022-11-27 14:43:00 82.7 kg [facility] BMI 2022-11-27 14:43:00 28.13 kg/m2 [facility] Systolic blood pressure 2022-11-27 14:43:00 162 mm[Hg] [facility] Diastolic blood pressure 2022-11-27 14:43:00 98 mm[Hg] [facility] Heart rate 2022-11-27 14:43:00 79 /min [facility] Body temperature 2022-11-27 14:43:00 35.89 Mesha [facility] Respiratory rate 2022-11-27 14:43:00 16 /min [facility] Body height 2022-11-27 14:43:00 171.5 cm [facility] Body weight 2022-11-27 14:43:00 82.7 kg [facility] BMI 2022-11-27 14:43:00 28.13 kg/m2 [facility] Oxygen saturation in Arterial blood by Pulse oximetry 2022-11-27 14:43:00 98 /min [facility] Systolic blood pressure 2022-11-13 14:55:00 122 mm[Hg] [facility] Diastolic blood pressure 2022-11-13 14:55:00 73 mm[Hg] [facility] Heart rate 2022-11-13 14:48:00 78 /min [facility] Body temperature 2022-11-13 14:48:00 35.89 Mesha [facility] Respiratory rate 2022-11-13 14:48:00 18 /min [facility] Body height 2022-11-13 14:48:00 170.2 cm [facility] Body weight 2022-11-13 14:48:00 83.779 kg [facility] BMI 2022-11-13 14:48:00 28.93 kg/m2 [facility] Oxygen saturation in Arterial blood by Pulse oximetry 2022-11-13 14:48:00 100 /min [facility] Systolic blood pressure 2022-11-12 14:44:00 131 mm[Hg] [facility] Diastolic blood pressure 2022-11-12 14:44:00 83 mm[Hg] [facility] Heart rate 2022-11-12 14:44:00 69 /min [facility] Respiratory rate 2022-11-12 14:44:00 18 /min [facility] Body height 2022-11-12 14:44:00 170.2 cm [facility] Body weight 2022-11-12 14:44:00 84.324 kg [facility] BMI 2022-11-12 14:44:00 29.12 kg/m2 [facility] Systolic blood pressure 2022-10-29 19:15:00 142 mm[Hg] [facility] Diastolic blood pressure 2022-10-29 19:15:00 76 mm[Hg] [facility] Heart rate 2022-10-29 19:15:00 56 /min [facility] Respiratory rate 2022-10-29 19:15:00 18 /min [facility] Oxygen saturation in Arterial blood by Pulse oximetry 2022-10-29 19:15:00 98 /min [facility] Body temperature 2022-10-29 17:56:00 36.67 Mesha [facility] Body height 2022-10-29 17:56:00 170.2 cm [facility] Body weight 2022-10-29 17:56:00 83.915 kg [facility] BMI 2022-10-29 17:56:00 28.98 kg/m2 [facility] Systolic blood pressure 2022-10-22 16:42:00 135 mm[Hg] [facility] Diastolic blood pressure 2022-10-22 16:42:00 65 mm[Hg] [facility] Heart rate 2022-10-22 16:42:00 64 /min [facility] Body temperature 2022-10-22 16:42:00 35.67 Mesha [facility] Respiratory rate 2022-10-22 16:42:00 16 /min [facility] Body height 2022-10-22 16:42:00 171.5 cm [facility] Body weight 2022-10-22 16:42:00 82.918 kg [facility] BMI 2022-10-22 16:42:00 28.21 kg/m2 [facility] Oxygen saturation in Arterial blood by Pulse oximetry 2022-10-22 16:42:00 99 /min [facility] Systolic blood pressure 2022-10-19 18:40:00 127 mm[Hg] [facility] Diastolic blood pressure 2022-10-19 18:40:00 72 mm[Hg] [facility] Heart rate 2022-10-19 18:40:00 70 /min [facility] Respiratory rate 2022-10-19 18:40:00 18 /min [facility] Oxygen saturation in Arterial blood by Pulse oximetry 2022-10-19 18:40:00 100 /min [facility] Body temperature 2022-10-19 16:08:00 36.83 Mesha [facility] Body weight 2022-10-19 16:08:00 83.915 kg [facility] BMI 2022-10-19 16:08:00 28.55 kg/m2 [facility] Systolic blood pressure 2022-10-14 15:40:00 137 mm[Hg] [facility] Diastolic blood pressure 2022-10-14 15:40:00 89 mm[Hg] [facility] Heart rate 2022-10-14 15:40:00 57 /min [facility] Body temperature 2022-10-14 15:40:00 35.33 Mesha [facility] Respiratory rate 2022-10-14 15:40:00 18 /min [facility] Body weight 2022-10-14 15:40:00 83.9 kg [facility] BMI 2022-10-14 15:40:00 28.54 kg/m2 [facility] Oxygen saturation in Arterial blood by Pulse oximetry 2022-10-14 15:40:00 98 /min [facility] Systolic blood pressure 2022-10-13 18:25:00 153 mm[Hg] [facility] Diastolic blood pressure 2022-10-13 18:25:00 76 mm[Hg] [facility] Heart rate 2022-10-13 18:25:00 72 /min [facility] Respiratory rate 2022-10-13 18:25:00 18 /min [facility] Body height 2022-10-13 18:25:00 171.5 cm [facility] Body weight 2022-10-13 18:25:00 83.915 kg [facility] BMI 2022-10-13 18:25:00 28.55 kg/m2 [facility] Oxygen saturation in Arterial blood by Pulse oximetry 2022-10-13 18:25:00 94 /min [facility] Systolic blood pressure 2022-10-07 15:21:00 133 mm[Hg] [facility] Diastolic blood pressure 2022-10-07 15:21:00 75 mm[Hg] [facility] Heart rate 2022-10-07 15:21:00 69 /min [facility] Body temperature 2022-10-07 15:21:00 36.06 Mesha [facility] Respiratory rate 2022-10-07 15:21:00 18 /min [facility] Body height 2022-10-07 15:21:00 167.9 cm verified w/ Ronda Mulligan MA [facility] Body weight 2022-10-07 15:21:00 81.9 kg verified w/ Ronda Mulligan MA [facility] BMI 2022-10-07 15:21:00 29.05 kg/m2 [facility] Oxygen saturation in Arterial blood by Pulse oximetry 2022-10-07 15:21:00 97 /min [facility] Systolic blood pressure 2022-10-02 13:56:00 158 mm[Hg] [facility] Diastolic blood pressure 2022-10-02 13:56:00 86 mm[Hg] [facility] Heart rate 2022-10-02 13:55:00 77 /min [facility] Body temperature 2022-10-02 13:55:00 36.39 Mesha [facility] Respiratory rate 2022-10-02 13:55:00 17 /min [facility] Body weight 2022-10-02 13:55:00 83.008 kg [facility] BMI 2022-10-02 13:55:00 28.66 kg/m2 [facility] Oxygen saturation in Arterial blood by Pulse oximetry 2022-10-02 13:55:00 100 /min [facility] Systolic blood pressure 2022-09-09 21:12:00 139 mm[Hg] [facility] Diastolic blood pressure 2022-09-09 21:12:00 77 mm[Hg] [facility] Heart rate 2022-09-09 21:12:00 67 /min [facility] Body temperature 2022-09-09 21:12:00 37.22 Mesha [facility] Respiratory rate 2022-09-09 21:12:00 18 /min [facility] Body height 2022-09-09 21:12:00 170.2 cm [facility] Body weight 2022-09-09 21:12:00 83.643 kg [facility] BMI 2022-09-09 21:12:00 28.88 kg/m2 [facility] Oxygen saturation in Arterial blood by Pulse oximetry 2022-09-09 21:12:00 97 /min [facility] Systolic blood pressure 2022-09-03 19:19:00 112 mm[Hg] [facility] Diastolic blood pressure 2022-09-03 19:19:00 66 mm[Hg] [facility] Heart rate 2022-09-03 19:19:00 63 /min [facility] Body temperature 2022-09-03 19:19:00 35.72 Mesha [facility] Respiratory rate 2022-09-03 19:19:00 16 /min [facility] Body height 2022-09-03 19:19:00 170.2 cm [facility] Body weight 2022-09-03 19:19:00 85.412 kg [facility] BMI 2022-09-03 19:19:00 29.49 kg/m2 [facility] Oxygen saturation in Arterial blood by Pulse oximetry 2022-09-03 19:19:00 97 /min [facility] Systolic blood pressure 2022-09-02 20:58:00 119 mm[Hg] [facility] Diastolic blood pressure 2022-09-02 20:58:00 74 mm[Hg] [facility] Heart rate 2022-09-02 20:58:00 80 /min [facility] Body temperature 2022-09-02 20:58:00 36.22 Mesha [facility] Respiratory rate 2022-09-02 20:58:00 18 /min [facility] Body height 2022-09-02 20:58:00 170.2 cm [facility] Body weight 2022-09-02 20:58:00 85.186 kg [facility] BMI 2022-09-02 20:58:00 29.41 kg/m2 [facility] Oxygen saturation in Arterial blood by Pulse oximetry 2022-09-02 20:58:00 96 /min [facility] Systolic blood pressure 2022-08-22 15:55:00 114 mm[Hg] [facility] Diastolic blood pressure 2022-08-22 15:55:00 70 mm[Hg] [facility] Heart rate 2022-08-22 15:55:00 74 /min [facility] Body height 2022-08-22 15:55:00 170.2 cm [facility] Body weight 2022-08-22 15:55:00 83.008 kg [facility] BMI 2022-08-22 15:55:00 28.66 kg/m2 [facility] Oxygen saturation in Arterial blood by Pulse oximetry 2022-08-22 15:55:00 96 /min [facility] Systolic blood pressure 2022-08-19 21:23:00 107 mm[Hg] [facility] Diastolic blood pressure 2022-08-19 21:23:00 68 mm[Hg] [facility] Heart rate 2022-08-19 21:23:00 72 /min [facility] Body temperature 2022-08-19 21:23:00 36.61 Mesha [facility] Respiratory rate 2022-08-19 21:23:00 18 /min [facility] Body height 2022-08-19 21:23:00 170.2 cm [facility] Body weight 2022-08-19 21:23:00 84.823 kg [facility] BMI 2022-08-19 21:23:00 29.29 kg/m2 [facility] Oxygen saturation in Arterial blood by Pulse oximetry 2022-08-19 21:23:00 94 /min [facility] Procedures Procedure Date / Time Performed Performing Clinician Source EXTERNAL PROVIDER RECORDS 2024-01-06 06:01:00 Doctor Unassigned, [place] [facility] IR REMOVAL TUNNELED CENTRAL VENOUS CATHETER WITH PORT/PUMP 2023-11-11 19:21:48 Charan Zepeda [facility] ASSIGNMENT OF BENEFITS 2023-10-13 18:58:37 Doctor Unassigned, [place] [facility] MR LUMBAR SPINE W WO CONTRAST 2023-09-15 14:28:18 Belkis Rollins [facility] TRANSTHORACIC ECHO (TTE) COMPLETE 2022-11 0-16 18:17:00 Charan Zepeda [facility] PHYSICIAN CERTIFICATION STATEMENT 2022-11 0-05 05:01:00 Doctor Unassigned, [place] [facility] TRANSTHORACIC ECHO (TTE) COMPLETE 7-24 16:10:00 Charan Zepeda [facility] DEXA AXIAL (HIP AND SPINE) 2023-05-25 14:39:30 Charan Zepeda [facility] TRANSTHORACIC ECHO (TTE) COMPLETE 4-27 13:20:25 Charan Zepeda [facility] EXTERNAL PROVIDER RECORDS 2023-03-19 05:01:00 Doctor Unassigned, [place] [facility] PATIENT FINANCIAL POLICY 2023-02-25 20:03:36 Doctor Unassigned, [place] [facility] CONSENT/REFUSAL FOR DIAGNOSI S AND TREATMENT 2023-02-05 19:29:48 Doctor Unassigned, [place] [facility] CONSENT/REFUSAL FOR DIAGNOSI S AND TREATMENT 2023-02-05 17:07:37 Doctor Unassigned, [place] [facility] CT LUMBAR SPINE WO CONTRAST 2023-01-24 23:30:28 Tash Jenkins [facility] CT THORACIC SPINE WO CONTRAST 2023-01-24 23:30:28 Tash Jenkins [facility] CT THORAX WO CONTRAST 2023-01-24 23:30:28 Tash Jenkins [facility] CT CERVICAL SPINE WO CONTRAST 2023-01-24 23:18:27 Tash Jenkins [facility] CONSENT/REFUSAL FOR DIAGNOSI S AND TREATMENT 2023-01-24 21:49:33 Doctor Unassigned, [place] [facility] DOWNTIME AMBULATORY DOCUMENTS 2023-01-16 06:01:00 Doctor Unassigned, [place] [facility] ASSIGNMENT OF BENEFITS 2022-12-11 20:20:53 Doctor Unassigned, [place] [facility] COLONOSCOPY (ENDO) 2022-11-27 15:55:08 Jeramy Beckman Antonio [facility] COLONOSCOPY (ENDO) 2022-11-27 15:55:08 Jeramy Beckman [facility] ESOPHAGOGASTRODUODENOSCOPY 2022-11-27 15:52:00 Keke Barraza [facility] COLONOSCOPY 2022-11-27 15:52:00 Keke Barraza [facility] EGD (ENDO) 2022-11-27 15:27:01 Jeramy Beckman Antonio [facility] EGD (ENDO) 2022-11-27 15:27:01 Jeramy Beckman Antonio [facility] ASSIGNMENT OF BENEFITS 2022-11-27 13:46:38 Doctor Unassigned, [place] [facility] DME/SUPPLY JUSTIFICATION 2022-11-18 06:01:00 Doctor Unassigned, [place] [facility] DISCLOSURE AND CONSENT, MEDI ANDREA AND SURGICAL PROCEDURES 2022-11-12 06:01:00 Doctor Unassigned, [place] [facility] REFERRAL- REQUEST/RESPONSE 2022-11-05 06:01:00 Doctor Unassigned, [place] [facility] IR REMOVAL TUNNELED CENTRAL VENOUS CATHETER WITH PORT/PUMP 2022-10-29 19:24:08 Kristine Norton [facility] IR REMOVAL TUNNELED CENTRAL VENOUS CATHETER WITH PORT/PUMP 2022-10-29 19:24:08 Kristine Norton [facility] IR CENTRALLY INSERTED DEVICE TUNNELED CATHETER WITH PORT 5 OR OLDER 2022-10-29 19:20:37 Pablo Yepez [facility] ABORH CONFIRMATION (LAB ONLY) 2022-10-19 17:09:00 Suraj Baca [facility] [facility] ABO GROUPING 2022-10-19 16:32:00 Suraj Baca [facility] LACTIC ACID WHOLE BLOOD 2022-10-19 16:31:00 Suraj Baca [facility] LIPASE 2022-10-19 16:30:00 Suraj Baca [facility] TROPONIN I 2022-10-19 16:30:00 Suraj Baca [facility] COMP. METABOLIC PANEL (95381) 2022-10-19 16:30:00 Suraj Baca [facility] CBC WITH DIFF 2022-10-19 16:30[facility]00 [facility] 2022-10-19 16:30:00 [facility] ACTIVATED PARTIAL THRMPLAS SANTOS 2022-10-01 0 16:30:00 [facility] N-TERMINAL PRO-BNP 2022-10-19 16:30:00 [facility] CONSENT/REFUSAL FOR DIAGNOSI S AND TREATMENT 2022-10-19 15:58:33 Doctor Unassigned, [place] [facility] INSURANCE CORRESPONDENCE 2022-10-10 06:01:00 Doctor Unassigned, [place] [facility] ASSIGNMENT OF BENEFITS 2022-10-08 20:30:22 Doctor Unassigned, [place] [facility] CONSENT/REFUSAL FOR DIAGNOSI S AND TREATMENT 2022-10-08 20:29:55 Doctor Unassigned, [place] [facility] DISCLOSURE AND CONSENT, MEDI ANDREA AND SURGICAL PROCEDURES 2022-09-04 05:01:00 Doctor Unassigned, [place] [facility] FERRITIN SERUM 2022-05-07 19:14:00 Nalini Finley [facility] HEPATIC FUNCTION PANEL (8007 6) (ALB,T.PRO,BILI T,BU/BC,ALT,AST,ALK PHOS) 2022-05-07 19:14:00 Nalini Finley [facility] BASIC METABOLIC PANEL (NA, K , CL, CO2, GLUCOSE, BUN, CREATININE, CA) 2022-05-07 19:14:00 Nalini Finley [facility] IRON PANEL 2022-05-07 19:14:00 Nalini Finley [facility] CBC WITH DIFF 2022-05-07 19:14:00 Nalini Finley [facility] Encounters Start Date/Time End Date/Time Encounter Type Admission Type Attending [facility] Care Facility Care Department Encounter ID Source 2018-02-11 16:04:00 Inpatient [facility] [id number] [facility] 2024-05-10 13:00:00 2024-05-10 13:00:00 Outpatient HELEN RAGSDALE [facility] [id number] [facility] 2024-01-21 10:20:00 2024-01-21 12:03:20 Outpatient CHARAN MASSEY [facility] [id number] [facility] 2024-01-21 10:20:00 2024-01-21 12:03:20 Office Visit Charan Zepeda [facility] 1.840.114 350.1.13.10 4.2.7.2.686 [id number] [facility] 2024-01-06 00:00:00 2024-01-06 00:00:00 Orders Only Doctor Unassigned, [place] [facility] 1.840.114 350.1.13.10 4.2.7.2.686 [id number] [facility] 2024-01-04 00:00:00 2024-01-04 00:00:00 Telephone Charan Zepeda BUILDING 1.2.840.114 350.1.13.10 4.2.7.2.686 [id number] 080 [id number] [facility] 2023-12-31 00:00:00 2023-12-31 00:00:00 Telephone Charan Zepeda BUILDING 1.2.840.114 350.1.13.10 4.2.7.2.686 [id number] [facility] 2023-12-31 00:00:00 2023-12-31 00:00:00 Patient Secure MsCharan Ibarra BUILDING 1.2.840.114 350.1.13.10 4.2.7.2.686 [id number] [facility] 2023-12-08 13:45:00 2023-12-08 13:45:00 Outpatient R PAUL ORTEGA CRAIG [facility] [id number] [facility] 2023-12-03 13:45:00 2023-12-03 13:45:00 Outpatient R [facility] [id number] [facility] 2023-11-25 13:00:00 2023-11-25 13:00:00 Outpatient R OLLIE LOOMIS [facility] [id number] [facility] 2023-11-18 10:15:00 2023-11-18 10:46:51 [facility]illary [facility] 1.2.840.114 350.1.13.10 4.2.7.2.686 [id number] [facility] 2023-11-18 09:30:00 2023-11-18 10:24:28 Ancillary Visit Ashlee Harris Craig L [facility] 1.2.840.114 350.1.13.10 4.2.7.2.686 [id number] [facility] 2023-11-11 10:22:49 2023-11-11 23:59:00 Outpatient R CHARAN ZEPEDA [facility] [id number] [facility] 2023-11-11 10:22:49 2023-11-11 23:59:00 Hospital Encounter Charan Zepeda, Mohinder James, [facility] 1.2840.114 350.1.13.10 4.2.7.2.686 [id number] [facility] 2023-11-10 00:00:00 2023-11-10 00:00:00 Outpatient KAI BROWER NATHAN [facility] [id number] [facility] 2023-11-09 09:00:00 2023-11-09 09:40:02 [facility] [id number] [facility] 2023-11-09 09:00:00 2023-11-09 09:40:02 [facility]?UZIEL [facility]RA [facility] 1.2.840.114 350.1.13.10 4.2.7.2.686 [id number] [facility] 2023-11-09 00:00:00 2023-11-09 00:00:00 Patient Secure Msg Doctor Unassigned, [place] [facility] 1..840.114 350.1.13.10 4.2.7.2.686 [id number] [facility] 2023-11-06 10:00:00 2023-11-06 11:00:00 [facility]medici ne [facility] 1..840.114 350.1.13.10 4.2.7.2.686 [id number] [facility] 2023-11-06 10:00:00 2023-11-06 10:00:00 Outpatient R SAVANA GRACE [facility] [id number] [facility] 2023-11-06 09:40:00 2023-11-06 09:40:00 Outpatient CHARAN MASSEY [facility] [id number] [facility] 2023-11-05 15:30:00 2023-11-05 16:30:00 Telemedici ne Visit Savana Grace [facility] 1.2.840.114 350.1.13.10 4.2.7.2.686 [id number] [facility] 2023-11-05 13:45:00 2023-11-05 16:05:09 Outpatient PAUL BURGESS CRAIG [facility] [id number] [facility] 2023-11-05 15:30:00 2023-11-05 15:30:00 Outpatient R SAVANA GRACE [facility] [id number] [facility] 2023-11-05 13:45:00 2023-11-05 14:30:00 Ancillary Visit Ashlee Harris Craig L [facility] 1.2.840.114 350.1.13.10 4.2.7.2.686 [id number] [facility] 2023-11-05 13:00:00 2023-11-05 14:01:19 Outpatient CHARAN MASSEY [facility] [id number] [facility] 2023-11-05 13:00:00 2023-11-05 14:01:19 Ancillary Visit Silvina Person Nabiha Yasmeen [facility] 1.2.840.114 350.1.13.10 4.2.7.2.686 [id number] [facility] 2023-10-29 15:45:47 2023-10-29 23:59:00 Outpatient KAI BROWER NATHAN [facility] [id number] [facility] 2023-10-29 15:45:00 2023-10-29 23:59:00 Hospital Encounter Kai Garcia [facility] 1.20.114 350.1.13.10 4.2.7.2.686 [id number] [facility] 2023-10-29 08:45:00 2023-10-29 09:26:34 Ancillary Visit Ashlee Harris Paul Ortega [facility] 1.2840.114 350.1.13.10 4.2.7.2.686 [id number] [facility] 2023-10-29 00:00:00 2023-10-29 00:00:00 Case Management Ashlee Harris [facility] 1.20.114 350.1.13.10 4.2.7.2.686 [id number] [facility] 2023-10-27 09:40:00 2023-10-28 15:20:29 Outpatient R CHARAN ZEPEDA [facility] [id number] [facility] 2023-10-27 09:40:00 2023-10-27 10:00:00 Telemedici ne Visit [facility] 1.20.114 350.1.13.10 4.2.7.2.686 [id number] [facility] 2023-10-15 11:00:00 2023-10-15 13:39:05 Outpatient R CHARAN ZEPEDA [facility] [id number] [facility] 2023-10-15 11:00:00 2023-10-15 13:39:05 Nurse Visit 9, [facility] Infusion Chair Charan Zepeda [facility] 1..114 350.1.13.10 4.2.7.2.686 [id number] [id number] [facility] 2023-10-14 14:00:00 2023-10-14 15:09:05 Outpatient R CARL LOOMISLSHAN [facility] [id number] [facility] 2023-10-14 14:00:00 2023-10-14 15:09:05 [facility] 1.84.114 350.1.13.10 4.2.7.2.686 [id number] [facility] 2023-10-14 00:00:00 2023-10-14 00:00:00 Case Management Charan Zepeda BUILDING 1.84.114 350.1.13.10 4.2.7.2.686 [id number] [facility] 2023-10-13 09:00:00 2023-10-13 14:39:02 Outpatient R CHARAN ZEPEDA [facility] [id number] [facility] 2023-10-13 13:00:00 2023-10-13 14:19:52 Outpatient R PAUL ORTEGA CRAIG [facility] [id number] [facility] 2023-10-13 13:00:00 2023-10-13 14:19:52 Ancillary Visit Ashlee Harris Craig L [facility] 1..840.114 350.1.13.10 4.2.7.2.686 [id number] [facility] 2023-10-13 09:00:00 2023-10-13 09:15:00 Paving Supervisor Visit 2, Adc Lab Charan Zepedasmeen [facility] BUILDING 1..840.114 350.1.13.10 4.2.7.2.686 [id number] [facility] 2023-10-13 00:00:00 2023-10-13 00:00:00 Orders Only Doctor Unassigned, [place] [facility] 1.114 350.1.13.10 4.2.7.2.686 [id number] [facility] 2023-10-09 13:45:00 2023-10-09 16:53:49 Outpatient R KAI GARCIA [facility] [id number] [facility] 2023-10-09 13:45:00 2023-10-09 14:15:00 Office Visit Laxmi [facility] 1.114 350.1.13.10 4.2.7.2.686 [id number] [facility] 2023-10-03 00:00:00 2023-10-03 00:00:00 [facility] 1.114 350.1.13.10 4.2.7.2.686 [id number] 092 [id number] [facility] 2023-09-24 11:00:00 2023-09-24 13:37:17 Outpatient R CHARAN ZEPEDA [facility] [id number] [facility] 2023-09-24 11:00:00 2023-09-24 13:37:17 Nurse Visit 7, [facility] 1.114 350.1.13.10 4.2.7.2.686 [id number] 053 [id number] [facility] 2023-09-23 00:00:00 2023-09-23 00:00:00 Letter (Out) [facility] 1.84.114 350.1.13.10 4.2.7.2.686 [id number] 092 [id number] [facility] 2023-09-22 09:00:00 2023-09-22 10:48:20 Outpatient R CHARAN ZEPEDA [facility] [id number] [facility] 2023-09-22 09:00:00 2023-09-22 10:48:20 Paving Supervisor Visit 2, Adc Lab Charan Zepedasmeen [facility] BU[facility] 1.2.840.114 350.1.13.10 4.2.7.2.686 [id number] [facility] 2023-09-17 00:00:00 2023-09-17 00:00:00 Patient Secure Msg Belkis Rollins BUILDING 1.2.840.114 350.1.13.10 4.2.7.2.686 [id number] [facility] 2023-09-15 08:42:02 2023-09-15 23:59:00 Outpatient R BELKIS ROLLINS [facility] [id number] [facility] 2023-09-15 08:42:02 2023-09-15 23:59:00 Hospital Encounter Belkis Rollins [facility] 1.2.840.114 350.1.13.10 4.2.7.2.686 [id number] [facility] 2023-09-14 12:46:17 2023-09-14 23:59:00 Outpatient R CHARAN ZEPEDA [facility] [id number] [facility] 2023-09-14 12:46:17 2023-09-14 23:59:00 Hospital Encounter Charan Zepeda [facility] 1.2.840.114 350.1.13.10 4.2.7.2.686 [id number] [facility] 2023-09-03 10:30:00 2023-09-03 13:30:30 Outpatient R CHARAN ZEPEDA [facility] [id number] [facility] 2023-09-03 10:30:00 2023-09-03 12:30:00 Nurse Visit 5, [facility] Infusion Chair Charan Zepeda [facility] 1.0.114 350.1.13.10 4.2.7.2.686 [id number] 053 [id number] [facility] 2023-09-03 09:40:00 2023-09-03 10:39:11 Office Visit Yaneth Minor BUILDING 1..114 350.1.13.10 4.2.7.2.686 [id number] [facility] 2023-09-03 00:00:00 2023-09-03 00:00:00 Orders Only Doctor Unassigned, [place] [facility] 1.0.114 350.1.13.10 4.2.7.2.686 [id number] [facility] 2023-09-02 00:00:00 2023-09-02 00:00:00 Refill Helen Brdashaw [facility]?RADHALucretia SMITHCRISTINO [facility] 1..114 350.1.13.10 4.2.7.2.686 [id number] 092 [id number] [facility] 2023-09-01 09:00:00 2023-09-01 14:05:10 Outpatient R CHARAN ZEPEDA [facility] [id number] [facility] 2023-09-01 09:00:00 2023-09-01 09:15:00 Paving Supervisor Visit 2, Adc Lab [facility]ed[facility]meen [facility] BU[facility] 1..114 350.1.13.10 4.2.7.2.686 [id number] [facility] 2023-09-01 00:00:00 2023-09-01 00:00:00 [facility]?UZIEL [facility] 1.0.114 350.1.13.10 4.2.7.2.686 [id number] 092 [id number] [facility] 2023-09-01 00:00:00 2023-09-01 00:00:00 Telephone Kristine Norton [facility] BUILDING 1..114 350.1.13.10 4.2.7.2.686 [id number] [facility] 2023-08-13 11:00:00 2023-08-13 13:32:48 Outpatient CHARAN MASSEY [facility] [id number] [facility] 2023-08-13 11:00:00 2023-08-13 13:32:48 Nurse Visit 5, [facility] 1.114 350.1.13.10 4.2.7.2.686 [id number] [facility] 2023-08-11 13:00:00 2023-08-11 13:05:49 Outpatient CHARAN MASSEY [facility] [id number] [facility] 2023-08-11 13:00:00 2023-08-11 13:05:49 Paving Supervisor Visit 2, [facility] 1..114 350.1.13.10 4.2.7.2.686 [id number] [facility] 2023-08-07 09:00:00 2023-08-07 09:30:00 Office [facility]ZIEL [facility] 1.84114 350.1.13.10 4.2.7.2.686 [id number] [facility] 2023-08-07 09:00:00 2023-08-07 09:00:00 Outpatient R HELEN BRADSHAW [facility] [id number] [facility] 2023-07-31 11:10:35 2023-07-31 23:59:00 Outpatient R CHARAN ZEPEDA [facility] [id number] [facility] 2023-07-31 10:40:00 2023-07-31 23:59:00 [facility] 1.840.114 350.1.13.10 4.2.7.2.686 [id number] [facility] 2023-07-23 11:30:00 2023-07-23 13:30:00 Nurse Visit 11, [facility] Infusion Chair Charan Zepedasmeen [facility] 1.840.114 350.1.13.10 4.2.7.2.686 [id number] [facility] 2023-07-23 11:30:00 2023-07-23 13:24:26 Outpatient R CHARAN ZEPEDA [facility] [id number] [facility] 2023-07-21 09:00:00 2023-07-21 09:00:00 Outpatient R [facility] [id number] [facility] 2023-07-20 11:00:00 2023-07-20 11:40:55 Outpatient R RORO ZEPEDAIHA [facility] [id number] [facility] 2023-07-20 11:00:00 2023-07-20 11:15:00 Paving Supervisor Visit 2, Adc Lab Charan [facility]epedasmeen [facility] BUILD[facility] 1..840.114 350.1.13.10 4.2.7.2.686 [id number] [facility] 2023-07-13 10:15:00 2023-07-13 11:19:59 Outpatient R CHARAN ZEPEDA [facility] [id number] [facility] 2023-07-13 10:15:00 2023-07-13 11:19:59 Ancillary Visit [facility]vina [facility] 1.2.840.114 350.1.13.10 4.2.7.2.686 [id number] [facility] 2023-07-13 00:00:00 2023-07-13 00:00:00 [facility]EL [facility] 1.2.840.114 350.1.13.10 4.2.7.2.686 [id number] [facility] 2023-07-08 08:00:00 2023-07-08 09:48:52 Ancillary Visit Silvina Person [facility] 1.2.840.114 350.1.13.10 4.2.7.2.686 [id number] [facility] 2023-07-06 11:30:00 2023-07-06 11:30:00 Office [facility]EL [facility] 1.2.840.114 350.1.13.10 4.2.7.2.686 [id number] [id number] [facility] 2023-07-06 11:30:00 2023-07-06 10:10:41 Outpatient HELEN RAGSDALE [facility] [id number] [facility] 2023-07-03 09:00:00 2023-07-03 09:00:00 Outpatient R HELEN BRADSHAW [facility] [id number] [facility] 2023-07-02 11:00:00 2023-07-02 13:22:55 Outpatient R CHARAN ZEPEDA [facility] [id number] [facility] 2023-07-02 11:00:00 2023-07-02 13:00:00 Nurse Visit 7, [facility] Infusion Chair Charan Zepeda [facility] 1.2.840.114 350.1.13.10 4.2.7.2.686 [id number] [id number] [facility] 2023-07-01 10:40:00 2023-07-01 11:00:00 Telemedici ne Visit Charan Zepedasmeen [facility] BUILDING 1.2.840.114 350.1.13.10 4.2.7.2.686 [id number] [facility] 2023-07-01 10:40:00 2023-07-01 10:40:00 [facility] [id number] [facility] 2023-07-01 00:00:00 2023-07-01 00:00:[address] Zepeda Nancy [facility] BUILDING 1.2.840.114 350.1.13.10 4.2.7.2.686 [id number] [facility] 2023-06-30 09:00:00 2023-06-30 14:33:48 Outpatient R CHARAN ZEPEDA [facility] [id number] [facility] 2023-06-30 09:00:00 2023-06-30 09:15:00 Paving Supervisor Visit 2, [facility] Lab [facility] 1.2.840.114 350.1.13.10 4.2.7.2.686 [id number] [facility] 2023-06-22 10:06:25 2023-06-22 23:59:00 [facility] [id number] [facility] 2023-06-22 10:00:00 2023-06-22 23:59:00 Hospital Encounter Charan Zepeda [facility] 1.284.114 350.1.13.10 4.2.7.2.686 [id number] [facility] 2023-06-22 00:00:00 2023-06-22 00:00:00 [facility]RADHALucretia [facility]CRIST[facility] 1.840.114 350.1.13.10 4.2.7.2.686 [id number] [facility] 2023-06-15 00:00:00 2023-06-15 00:00:[address] Char[address] Nancy [facility] BUILDING 1.840.114 350.1.13.10 4.2.7.2.686 [id number] [id number] [facility] 2023-06-11 11:00:00 2023-06-11 11:00:00 Outpatient R CHARAN ZEPEDA [facility] [id number] [facility] 2023-06-11 00:00:00 2023-06-11 00:00:00 Telephone Pcp, Patient Does Not Have A [facility] 1.84.114 350.1.13.10 4.2.7.2.686 [id number] [facility] 2023-06-03 00:00:00 2023-06-03 00:00:00 Telephone [facility] 1.2.840.114 350.1.13.10 4.2.7.2.686 [id number] [id number] [facility] 2023-06-01 09:00:00 2023-06-01 14:00:23 Outpatient R [facility] [id number] [facility] 2023-06-01 09:00:00 2023-06-01 14:00:23 Office Visit [facility] 1.840.114 350.1.13.10 4.2.7.2.686 [id number] 092 [id number] [facility] 2023-05-28 00:00:00 2023-05-28 00:00:00 Telephone Charan Zepeda BUILDING 1.0.114 350.1.13.10 4.2.7.2.686 [id number] [facility] 2023-05-25 09:05:01 2023-05-25 23:59:00 Outpatient R CHARAN ZEPEDA [facility] [id number] [facility] 2023-05-25 09:05:01 2023-05-25 23:59:00 Hospital Encounter Charan Zepeda [facility] 1.0.114 350.1.13.10 4.2.7.2.686 [id number] [facility] 2023-05-22 00:00:00 2023-05-22 00:00:00 Patient Secure Msg Doctor Unassigned, [place] [facility] 1.840.114 350.1.13.10 4.2.7.2.686 [id number] [facility] 2023-05-21 11:30:00 2023-05-21 14:14:48 Outpatient R CHARAN ZEPEDA [facility] [id number] [facility] 2023-05-21 11:30:00 2023-05-21 13:30:00 Nurse Visit 5, [facility] Infusion Chair Charan Zepeda [facility] 1.0.114 350.1.13.10 4.2.7.2.686 [id number] [id number] [facility] 2023-05-21 00:00:00 2023-05-21 00:00:00 Telephone Charan [facility]edasmeen [facility] 1..840.114 350.1.13.10 4.2.7.2.686 [id number] [facility] 2023-05-19 09:15:00 2023-05-19 13:15:30 Outpatient R RORO ZEPEDAIHA [facility] [id number] [facility] 2023-05-19 09:15:00 2023-05-19 09:30:00 Paving Supervisor Visit 2, Adc Lab Roro Zepedashola MccoyNancy [facility] 1.2.840.114 350.1.13.10 4.2.7.2.686 [id number] [facility] 2023-05-13 00:00:00 2023-05-13 00:00:00 Outpatient R BIMALARAVIND KRISTINE [facility] [id number] [facility] 2023-04-30 13:00:00 2023-04-30 15:00:00 Nurse Visit 1, [facility] Infusion Chair Duane Charanshola Cruz [facility] 1..840.114 350.1.13.10 4.2.7.2.686 [id number] [facility] 2023-04-30 13:00:00 2023-04-30 14:15:14 Outpatient R RORO ZEPEDAIHA [facility] [id number] [facility] 2023-04-30 11:00:00 2023-04-30 11:59:59 Office Visit Roro Zepedashola [facility] 1.2.840.114 350.1.13.10 4.2.7.2.686 [id number] [facility] 2023-04-30 11:00:00 2023-04-30 11:00:00 Outpatient R RORO ZEPEDAIHA [facility] [id number] [facility] 2023-04-29 10:30:00 2023-04-29 13:24:42 Outpatient R RORO ZEPEDAIHA [facility] [id number] [facility] 2023-04-29 10:30:00 2023-04-29 13:24:42 Paving Supervisor Visit 2, Adc Lab Duane Charan Cruz [facility] 1.2.840.114 350.1.13.10 4.2.7.2.686 [id number] [facility] 2023-04-21 00:00:00 2023-04-21 00:00:00 Refill Seanlluvia Charanshola Cruz [facility] 1.2.840.114 350.1.13.10 4.2.7.2.686 [id number] [facility] 2023-04-21 00:00:00 2023-04-21 00:00:00 Refill Lavon Eric [facility] 1.2.840.114 350.1.13.10 4.2.7.2.686 [id number] [facility] 2023-04-09 11:00:00 2023-04-09 13:53:19 Outpatient R SEANLLUVIAROROCHARAN [facility] [id number] [facility] 2023-04-09 11:00:00 2023-04-09 13:53:19 Nurse Visit 8, [facility] Infusion Chair SeanCharan shepherd [facility] 1.2840.114 350.1.13.10 4.2.7.2.686 [id number] [facility] 2023-04-08 08:45:00 2023-04-08 13:10:20 Outpatient R CHARAN ZEPEDA [facility] [id number] [facility] 2023-04-08 08:45:00 2023-04-08 09:00:00 Paving Supervisor Visit 2, Adc Lab Roro Zepedashola Cruz [facility] [facility] 1.2.840.114 350.1.13.10 4.2.7.2.686 [id number] [facility] 2023-04-02 00:00:00 2023-04-02 00:00:00 Telephone Charan Zepedasmeen [facility] 1.2.840.114 350.1.13.10 4.2.7.2.686 [id number] 080 [id number] [facility] 2023-03-26 07:18:06 2023-03-26 23:59:00 Hospital Encounter Duane Charan [facility] 1.2840.114 350.1.13.10 4.2.7.2.686 [id number] [facility] 2023-03-26 13:00:00 2023-03-26 13:00:00 Outpatient R HELEN BRADSHAW [facility] [id number] [facility] 2023-03-19 11:00:00 2023-03-19 13:00:00 Nurse Visit 8, [facility] Infusion Chair Slick Zepedaa [facility] 1.2840.114 350.1.13.10 4.2.7.2.686 [id number] 053 [id number] [facility] 2023-03-19 09:40:00 2023-03-19 12:31:41 Outpatient R SEANLLUVIA CHARAN [facility] [id number] [facility] 2023-03-19 09:40:00 2023-03-19 12:31:41 Office Visit Charan Zepedasmeen [facility] 1.2840.114 350.1.13.10 4.2.7.2.686 [id number] 080 [id number] [facility] 2023-03-19 00:00:00 2023-03-19 00:00:00 Orders Only Doctor Unassigned, [place] [facility] 1.2840.114 350.1.13.10 4.2.7.2.686 [id number] [facility] 2023-03-17 15:00:00 2023-03-17 15:31:25 Outpatient R CHARAN ZEPEDA [facility] [id number] [facility] 2023-03-17 15:00:00 2023-03-17 15:15:00 Paving Supervisor Visit 2, Adc Lab Charan Zepeda [facility] 1.2.840.114 350.1.13.10 4.2.7.2.686 [id number] 353 [id number] [facility] 2023-02-26 11:00:00 2023-02-26 13:26:08 Nurse Visit 1, [facility] Infusion Chair Charan Zepedasmeen [facility] 1.2840.114 350.1.13.10 4.2.7.2.686 [id number] 053 [id number] [facility] 2023-02-26 09:40:00 2023-02-26 10:30:13 Outpatient R CHARAN ZEPEDA [facility] [id number] [facility] 2023-02-26 09:40:00 2023-02-26 10:30:13 Office Visit Charan Zepeda [facility] 1..840.114 350.1.13.10 4.2.7.2.686 [id number] 080 [id number] [facility] 2023-02-25 14:00:00 2023-02-25 15:29:48 Outpatient R CHARAN ZEPEDA [facility] [id number] [facility] 2023-02-25 14:00:00 2023-02-25 14:15:00 Paving Supervisor Visit 2, Adc Lab SeanlluviaCharan [facility] 1.2840.114 350.1.13.10 4.2.7.2.686 [id number] 353 [id number] [facility] 2023-02-25 00:00:00 2023-02-25 00:00:00 Orders Only Doctor Unassigned, [place] [facility] 1.2840.114 350.1.13.10 4.2.7.2.686 [id number] [id number] [facility] 2023-02-20 13:15:00 2023-02-20 13:15:00 Outpatient CHARAN MASSEY [facility] [id number] [facility] 2023-02-20 00:00:00 2023-02-20 00:00:00 Case Management Duane Charanshola Tayeen [facility] 1.840.114 350.1.13.10 4.2.7.2.686 [id number] 080 [id number] [facility] 2023-02-10 00:00:00 2023-02-10 00:00:00 [facility] 1.2840.114 350.1.13.10 4.2.7.2.686 [id number] 081 [id number] [facility] 2023-02-09 00:00:00 2023-02-09 00:00:00 Letter (Out) Clinic, [facility] Neurology Resident [facility] 1.2840.114 350.1.13.10 4.2.7.2.686 [id number] [id number] [facility] 2023-02-06 11:30:00 2023-02-06 11:30:00 Outpatient LAVON VELEZ LAUREN [facility] [id number] [facility] 2023-02-05 13:42:00 2023-02-05 14:33:00 Emergency Raquel Wilks [facility] 1.2.840.114 350.1.13.10 4.2.7.2.686 [id number] 084 [id number] [facility] 2023-02-05 11:21:00 2023-02-05 12:12:00 Emergency X [facility] ERT [id number] [facility] 2023-02-05 11:21:00 2023-02-05 12:12:00 Emergency [facility] 1.2840.114 350.1.13.10 4.2.7.2.686 [id number] [facility] 2023-02-05 10:00:00 2023-02-05 10:41:17 Outpatient R CHARAN ZEPEDA [facility] [id number] [facility] 2023-02-05 10:00:00 2023-02-05 10:41:17 Outpatient R CHARAN ZEPEDA [facility] ERT [id number] [facility] 2023-02-05 10:00:00 2023-02-05 10:41:17 Office Visit Charan Zepeda [facility] 1.2840.114 350.1.13.10 4.2.7.2.686 [id number] [id number] [facility] 2023-02-05 00:00:00 2023-02-05 00:00:00 Patient Secure Msg Doctor Unassigned, [place] [facility] 1.840.114 350.1.13.10 4.2.7.2.686 [id number] [facility] 2023-02-05 00:00:00 2023-02-05 00:00:00 Patient Secure Msg Doctor Unassigned, [place] [facility] 1.2840.114 350.1.13.10 4.2.7.2.686 [id number] [id number] [facility] 2023-02-04 12:00:00 2023-02-04 12:00:00 Outpatient R CHARAN ZEPEDA [facility] [id number] [facility] 2023-02-03 09:30:00 2023-02-03 09:30:00 Outpatient R RORO ZEPEDAIHA [facility] [id number] [facility] 2023-02-02 10:00:00 2023-02-02 10:08:42 Outpatient R RORO ZEPEDAIHA [facility] [id number] [facility] 2023-02-02 10:00:00 2023-02-02 10:08:42 Paving Supervisor Visit 2, [facility] Lab Charan Zepedasmeen [facility] 1.2.840.114 350.1.13.10 4.2.7.2.686 [id number] [facility] 2023-01-27 09:30:00 2023-01-27 09:30:00 Outpatient R CHARAN ZEPEDA [facility] [id number] [facility] 2023-01-27 00:00:00 2023-01-27 00:00:00 Telephone Charan Zepeda [facility] 1.2.840.114 350.1.13.10 4.2.7.2.686 [id number] 080 [id number] [facility] 2023-01-24 16:04:00 2023-01-24 19:28:00 Emergency X TASH JENKINS [facility] ERT [id number] [facility] 2023-01-24 16:04:00 2023-01-24 19:28:00 Emergency Tash Jenkins S [facility] 1.2.840.114 350.1.13.10 4.2.7.2.686 [id number] [facility] 2023-01-23 00:00:00 2023-01-23 00:00:00 Telephone Roro Zepedashola Cruz [facility] 1.2.840.114 350.1.13.10 4.2.7.2.686 [id number] [facility] 2023-01-21 00:00:00 2023-01-21 00:00:00 Clinic Assessment Duane Charan Cruz [facility] 1.2.840.114 350.1.13.10 4.2.7.2.686 [id number] 053 [id number] [facility] 2023-01-20 09:30:00 2023-01-20 09:30:00 Outpatient R [facility] [id number] [facility] 2023-01-20 00:00:00 2023-01-20 00:00:00 Patient Secure Msg Doctor Unassigned, [place] [facility] 1.2.840.114 350.1.13.10 4.2.7.2.686 [id number] 037 [id number] [facility] 2023-01-16 00:00:00 2023-01-16 00:00:00 Orders Only Doctor Unassigned, [place] [facility] 1.2.840.114 350.1.13.10 4.2.7.2.686 [id number] [facility] 2023-01-14 12:00:00 2023-01-14 12:00:00 Outpatient R DUANE CHARAN [facility] [id number] [facility] 2023-01-14 09:00:00 2023-01-14 09:00:00 Office Visit Roro Zepedashola Cruz [facility] 1.2.840.114 350.1.13.10 4.2.7.2.686 [id number] 080 [id number] [facility] 2023-01-13 09:30:00 2023-01-13 15:38:36 Outpatient R CHARAN ZEPEDA [facility] [id number] [facility] 2023-01-13 09:30:00 2023-01-13 09:45:00 Paving Supervisor Visit 2, [facility] Lab [facility] 1.2.840.114 350.1.13.10 4.2.7.2.686 [id number] [facility] 2023-01-07 08:00:00 2023-01-07 12:25:20 Outpatient R CHARAN ZEPEDA [facility] [id number] [facility] 2023-01-07 08:00:00 2023-01-07 12:25:20 Nurse Visit 3, [facility] Infusion Chair Duane Charanshola Cruz [facility] 1..840.114 350.1.13.10 4.2.7.2.686 [id number] [id number] [facility] 2023-01-07 00:00:00 2023-01-07 00:00:00 Case Management Charan Zepedadagoberto [facility] 1.2.840.114 350.1.13.10 4.2.7.2.686 [id number] [id number] [facility] 2023-01-06 09:30:00 2023-01-06 13:01:21 Outpatient R CHARAN ZEPEDA [facility] [id number] [facility] 2023-01-06 09:30:00 2023-01-06 09:45:00 Paving Supervisor Visit 2, [facility] Lab Charan Zepedasmeen [facility]ILD[facility] 1.2.840.114 350.1.13.10 4.2.7.2.686 [id number] 353 [id number] [facility] 2023-01-01 00:00:00 2023-01-01 00:00:00 Telephone Charan ZepedaG BUILDING 1..840.114 350.1.13.10 4.2.7.2.686 [id number] 080 [id number] [facility] 2022-12-31 11:30:00 2022-12-31 15:37:56 Outpatient R SEANLLUVIA CHARAN [facility] [id number] [facility] 2022-12-31 11:30:00 2022-12-31 15:37:56 Nurse Visit 10, [facility] Infusion Chair [facility]ane [facility] 1.840.114 350.1.13.10 4.2.7.2.686 [id number] [id number] [facility] 2022-12-30 09:30:00 2022-12-30 15:58:03 Outpatient R CHARAN ZEPEDA [facility] [id number] [facility] 2022-12-30 09:30:00 2022-12-30 09:45:00 Paving Supervisor Visit 2, Adc Lab Duane [facility] 1..840.114 350.1.13.10 4.2.7.2.686 [id number] [facility] 2022-12-25 09:40:00 2022-12-25 09:40:00 Outpatient R CHARAN ZEPEDA [facility] [id number] [facility] 2022-12-24 09:30:00 2022-12-24 13:30:38 Nurse Visit 7, [facility] 1.840.114 350.1.13.10 4.2.7.2.686 [id number] 053 [id number] [facility] 2022-12-24 08:40:00 2022-12-24 09:25:07 Outpatient R CHARAN ZEPEDA [facility] [id number] [facility] 2022-12-24 08:40:00 2022-12-24 09:25:07 Office Visit Duane Charan Cruz [facility] 1..840.114 350.1.13.10 4.2.7.2.686 [id number] 080 [id number] [facility] 2022-12-23 09:45:00 2022-12-23 10:00:00 Paving Supervisor Visit 2, Adc Lab Charan Zepeda [facility] 1.2.840.114 350.1.13.10 4.2.7.2.686 [id number] [facility] 2022-12-23 09:45:00 2022-12-23 09:45:00 Outpatient R CHARAN ZEPEDA [facility] [id number] [facility] 2022-12-22 09:30:00 2022-12-22 09:30:00 Outpatient R CHARAN ZEPEDA [facility] [id number] [facility] 2022-12-22 00:00:00 2022-12-22 00:00:00 Telephone Charan Zepeda [facility] 1.2.840.114 350.1.13.10 4.2.7.2.686 [id number] [id number] [facility] 2022-12-17 09:30:00 2022-12-17 14:04:43 Outpatient R CHARAN ZEPEDA [facility] [id number] [facility] 2022-12-17 09:30:00 2022-12-17 14:04:43 Nurse Visit 7, [facility] Infusion Chair Charan Zepeda [facility] 1.2.840.114 350.1.13.10 4.2.7.2.686 [id number] 053 [id number] [facility] 2022-12-17 00:00:00 2022-12-17 00:00:00 Letter (Out) Charan Zepeda BUILDING 1.2.840.114 350.1.13.10 4.2.7.2.686 [id number] 080 [id number] [facility] 2022-12-17 00:00:00 2022-12-17 00:00:00 Case Management Charan Zepeda [facility] 1.2.840.114 350.1.13.10 4.2.7.2.686 [id number] 080 [id number] [facility] 2022-12-16 08:30:00 2022-12-16 16:00:53 Outpatient R RORO ZEPEDAIHA [facility] [id number] [facility] 2022-12-16 08:30:00 2022-12-16 08:45:00 Paving Supervisor Visit 2, Adc Lab Roro Zepedaiha Nancy [facility] 1.2.840.114 350.1.13.10 4.2.7.2.686 [id number] [facility] 2022-12-11 14:35:48 2022-12-11 23:59:00 Outpatient R RORO ZEPEDAIHA [facility] [id number] [facility] 2022-12-11 00:00:00 2022-12-11 00:00:00 Outpatient TOBIAS PATEL [facility] [id number] [facility] 2022-12-11 00:00:00 2022-12-11 00:00:00 Orders Only Doctor Unassigned, [place] [facility] 1.2.840.114 350.1.13.10 4.2.7.2.686 [id number] [facility] 2022-12-10 09:30:00 2022-12-10 12:58:21 Outpatient R RORO ZEPEDAIHA [facility] [id number] [facility] 2022-12-10 09:30:00 2022-12-10 12:58:21 Nurse Visit 5, [facility] 1.2.840.114 350.1.13.10 4.2.7.2.686 [id number] [id number] [facility] 2022-12-10 00:00:00 2022-12-10 00:00:00 Telephone Slick Zepedaa Nancy [facility] 1.2.840.114 350.1.13.10 4.2.7.2.686 [id number] 080 [id number] [facility] 2022-12-09 13:30:00 2022-12-09 13:43:08 Outpatient R CHARAN ZEPEDA [facility] [id number] [facility] 2022-12-09 13:30:00 2022-12-09 13:43:08 Paving Supervisor Visit 2, Adc Lab SeanCharan shepherdsmeen [facility] 1.2.840.114 350.1.13.10 4.2.7.2.686 [id number] 353 [id number] [facility] 2022-12-08 00:00:00 2022-12-08 00:00:00 Outpatient R CHARAN ZEPEDA [facility] [id number] [facility] 2022-12-04 09:30:00 2022-12-04 14:23:32 Nurse Visit 7, [facility] 1.2.840.114 350.1.13.10 4.2.7.2.686 [id number] [facility] 2022-12-04 09:00:00 2022-12-04 09:27:58 Outpatient R CHARAN ZEPEDA [facility] [id number] [facility] 2022-12-04 09:00:00 2022-12-04 09:27:58 [facility] 1.2.840.114 350.1.13.10 4.2.7.2.686 [id number] 080 [id number] [facility] 2022-12-03 08:30:00 2022-12-03 13:20:33 Outpatient R CHARAN ZEPEDA [facility] [id number] [facility] 2022-12-03 08:30:00 2022-12-03 08:45:00 Paving Supervisor Visit 2, Adc Lab Charan Zepedasmeen [facility] 1.2840.114 350.1.13.10 4.2.7.2.686 [id number] [facility] 2022-12-03 00:00:00 2022-12-03 00:00:00 Case Management [facility] 1.2.840.114 350.1.13.10 4.2.7.2.686 [id number] 080 [id number] [facility] 2022-12-02 00:00:00 2022-12-02 00:00:00 Telephone [facility] 1.2840.114 350.1.13.10 4.2.7.2.686 [id number] 080 [id number] [facility] 2022-12-01 09:30:00 2022-12-01 09:30:00 Outpatient R CHARAN ZEPEDA [facility] [id number] [facility] 2022-11-27 08:14:00 2022-11-27 12:16:00 Outpatient R KEKE BARRAZA [facility] [id number] [facility] 2022-11-27 08:14:00 2022-11-27 12:16:00 Hospital Encounter Keke Barraza [facility] 1.2.840.114 350.1.13.10 4.2.7.2.686 [id number] [facility] 2022-11-27 09:45:00 2022-11-27 10:45:00 Surgery Keke Barraza [facility] 1..114 350.1.13.10 4.2.7.2.686 [id number] [id number] [facility] 2022-11-27 00:00:00 2022-11-27 00:00:00 Orders Only Doctor Unassigned, [place] [facility] 1..114 350.1.13.10 4.2.7.2.686 [id number] [facility] 2022-11-25 09:30:00 2022-11-25 09:30:00 Outpatient R CHARAN ZEPEDA [facility] [id number] [facility] 2022-11-21 00:00:00 2022-11-21 00:00:00 Patient Secure Msg Doctor Unassigned, [place] [facility] SCIENCES [facility] 1.114 350.1.13.10 4.2.7.2.686 [id number] [facility] 2022-11-18 11:15:00 2022-11-18 11:34:08 Outpatient R CHARAN ZEPEDA [facility] [id number] [facility] 2022-11-18 11:15:00 2022-11-18 11:30:00 Paving Supervisor Visit 2, Adc Lab Charan Zepeda [facility] 1.114 350.1.13.10 4.2.7.2.686 [id number] [facility] 2022-11-18 00:00:00 2022-11-18 00:00:00 Orders Only Doctor Unassigned, [place] [facility] 1..114 350.1.13.10 4.2.7.2.686 [id number] [facility] 2022-11-17 09:30:00 2022-11-17 09:30:00 Outpatient R CHARAN ZEPEDA [facility] [id number] [facility] 2022-11-13 09:20:00 2022-11-13 09:29:47 Outpatient R RORO ZEPEDAIHA [facility] [id number] [facility] 2022-11-13 09:20:00 2022-11-13 09:29:47 Office Visit Charan Zepeda [facility] 1.2.840.114 350.1.13.10 4.2.7.2.686 [id number] 080 [id number] [facility] 2022-11-13 00:00:00 2022-11-13 00:00:00 Refill Ingrid Ramírez [facility] 1.2.840.114 350.1.13.10 4.2.7.2.686 [id number] 080 [id number] [facility] 2022-11-12 09:30:00 2022-11-12 10:00:00 Office Visit Lavon Blake [facility] 1.2.840.114 350.1.13.10 4.2.7.2.686 [id number] 071 [id number] [facility] 2022-11-12 09:30:00 2022-11-12 09:30:00 Outpatient R LAVON BLAKE LAUREN [facility] [id number] [facility] 2022-11-12 00:00:00 2022-11-12 00:00:00 Orders Only Doctor Unassigned, [place] [facility] 1.2.840.114 350.1.13.10 4.2.7.2.686 [id number] [facility] 2022-11-05 00:00:00 2022-11-05 00:00:00 Orders Only Doctor Unassigned, [place] [facility] 1..114 350.1.13.10 4.2.7.2.686 [id number] [facility] 2022-11-04 15:45:00 2022-11-04 16:00:00 Paving Supervisor Visit 2, Adc Lab SeanCharan shepherd [facility]ILD[facility] 1.84.114 350.1.13.10 4.2.7.2.686 [id number] [facility] 2022-11-04 15:45:00 2022-11-04 15:52:36 Outpatient R RORO ZEPEDAIHA [facility] [id number] [facility] 2022-11-04 09:30:00 2022-11-04 09:30:00 Outpatient R RORO ZEPEDAIHA [facility] [id number] [facility] 2022-11-03 09:30:00 2022-11-03 09:30:00 Outpatient R RORO ZEPEDAIHA [facility] [id number] [facility] 2022-11-03 00:00:00 2022-11-03 00:00:00 Telephone SeanCharan shepherd [facility] 1.84.114 350.1.13.10 4.2.7.2.686 [id number] [facility] 2022-10-29 11:37:49 2022-10-29 23:59:00 Outpatient R KRISTINE NORTON [facility] [id number] [facility] 2022-10-29 11:37:49 2022-10-29 23:59:00 Hospital Encounter Kristine Norton [facility] 1..114 350.1.13.10 4.2.7.2.686 [id number] [facility] 2022-10-29 11:18:45 2022-10-29 11:36:00 Hospital Encounter Kristine Norton [facility] 1.840.114 350.1.13.10 4.2.7.2.686 [id number] [facility] 2022-10-29 00:00:00 2022-10-29 00:00:00 Telephone Kristine Norton [facility] 1.840.114 350.1.13.10 4.2.7.2.686 [id number] [facility] 2022-10-28 09:30:00 2022-10-28 09:30:00 Outpatient CHARAN MASSEY [facility] [id number] [facility] 2022-10-27 09:30:00 2022-10-27 13:07:00 Outpatient CHARAN MASSEY [facility] [id number] [facility] 2022-10-27 09:30:00 2022-10-27 09:45:00 Paving Supervisor Visit 2, Adc Lab Charan Zepedasmeen [facility] 1..114 350.1.13.10 4.2.7.2.686 [id number] [facility] 2022-10-27 00:00:00 2022-10-27 00:00:00 [facility]114 350.1.13.10 4.2.7.2.686 [id number] [facility] 2022-10-27 00:00:00 2022-10-27 00:00:00 Telephone Yoshi Sales [facility] 1..114 350.1.13.10 4.2.7.2.686 [id number] [facility] 2022-10-22 10:40:00 2022-10-22 12:05:17 Outpatient R CHARAN ZEPEDA [facility] [id number] [facility] 2022-10-22 10:40:00 2022-10-22 12:05:17 Office Visit Charan Zepeda BUILDING 1.2.840.114 350.1.13.10 4.2.7.2.686 [id number] [facility] 2022-10-21 09:30:00 2022-10-21 09:45:00 Paving Supervisor Visit 2, Adc Lab Charan Zepedasmeen [facility] BUILDING 1.2.840.114 350.1.13.10 4.2.7.2.686 [id number] [facility] 2022-10-21 09:30:00 2022-10-21 09:30:00 Outpatient R CHARAN ZEPEDA [facility] [id number] [facility] 2022-10-21 09:00:00 2022-10-21 09:00:00 Outpatient R CHARAN ZEPEDA [facility] [id number] [facility] 2022 09:30:00 2022 14:08:51 Outpatient R RORO ZEPEDAIHA [facility] [id number] [facility] 2022 09:30:00 2022 09:45:00 Paving Supervisor Visit 2, Adc Lab Charan Zepeda [facility] BUILDING 1.2.840.114 350.1.13.10 4.2.7.2.686 [id number] [facility] 2022 00:00:00 2022 00:00:00 [facility] 1.2.840.114 350.1.13.10 4.2.7.2.686 [id number] [facility] 2022 00:00:00 2022 00:00:00 Patient Secure Lavon Torrez BUILDING 1.2840.114 350.1.13.10 4.2.7.2.686 [id number] [facility] 2022-10-19 10:10:00 2022-10-19 13:38:00 Emergency X SURAJ BCAA [facility] ERT [id number] [facility] 2022-10-19 10:10:00 2022-10-19 13:38:00 Emergency Suraj Baca [facility] 1.840.114 350.1.13.10 4.2.7.2.686 [id number] [facility] 2022-10-19 00:00:00 2022-10-19 00:00:00 Nurse Triage Davis Mueller [facility] 1.840.114 350.1.13.10 4.2.7.2.686 [id number] [facility] 2022-10-16 00:00:00 2022-10-16 00:00:00 Telephone Kristine Norton [facility] BUILDING 1.2840.114 350.1.13.10 4.2.7.2.686 [id number] [facility] 2022-10-14 09:00:00 2022-10-14 12:58:16 Outpatient R CHARAN ZEPEDA [facility] [id number] [facility] 2022-10-14 09:00:00 2022-10-14 12:58:16 Nurse Visit 1, [facility] Infusion Chair Charan Zepeda [facility] 1.840.114 350.1.13.10 4.2.7.2.686 [id number] [facility] 2022-10-13 12:45:00 2022-10-13 13:00:00 Office Visit Kristine Norton [facility] 1.20.114 350.1.13.10 4.2.7.2.686 [id number] [facility] 2022-10-13 09:45:00 2022-10-13 10:00:00 Paving Supervisor Visit 2, Adc Lab Charan Zepeda [facility] PROFESS[facility] BUILDING 1..114 350.1.13.10 4.2.7.2.686 [id number] [facility] 2022-10-13 09:45:00 2022-10-13 09:45:00 Outpatient CHARAN MASSEY [facility] [id number] [facility] 2022-10-13 00:00:00 2022-10-13 00:00:00 Letter (Out) Kristine Norton [facility] 1.0.114 350.1.13.10 4.2.7.2.686 [id number] [facility] 2022-10-10 00:00:00 2022-10-10 00:00:00 Orders Only Doctor Unassigned, [place] [facility] 1..114 350.1.13.10 4.2.7.2.686 [id number] [facility] 2022-10-08 14:30:37 2022-10-08 23:59:00 Outpatient LAVON VANN [facility] [id number] [facility] 2022-10-08 14:30:37 2022-10-08 23:59:00 Hospital Encounter Lavon Eric [facility] 1..114 350.1.13.10 4.2.7.2.686 [id number] [facility] 2022-10-08 00:00:00 2022-10-08 00:00:00 Orders Only Doctor Unassigned, [place] [facility] 1.2.840.114 350.1.13.10 4.2.7.2.686 [id number] [facility] 2022-10-07 09:00:00 2022-10-07 12:30:00 Nurse Visit 5, [facility] Infusion Chair Charan Zepedasmeen [facility] 1.2840.114 350.1.13.10 4.2.7.2.686 [id number] [facility] 2022-10-07 09:00:00 2022-10-07 09:00:00 Outpatient CHARAN MASSEY [facility] [id number] [facility] 2022-10-07 00:00:00 2022-10-07 00:00:00 Telephone Lavon Eric BUILDING 1.2.840.114 350.1.13.10 4.2.7.2.686 [id number] [facility] 2022-10-06 09:30:00 2022-10-06 09:30:00 Paving Supervisor Visit 2, [facility] 1.2.840.114 350.1.13.10 4.2.7.2.686 [id number] [facility] 2022-10-06 09:30:00 2022-10-06 09:26:19 Outpatient CHARAN MASSEY [facility] [id number] [facility] 2022-10-06 08:00:00 2022-10-06 08:00:00 Outpatient CHARAN MASSEY [facility] [id number] [facility] 2022-10-06 00:00:00 2022-10-06 00:00:00 Telephone Kristine Norton [facility] JUNIOR LOYOLA [facility] BUILDING 1.2.840.114 350.1.13.10 4.2.7.2.686 [id number] [facility] 2022-10-03 15:00:00 2022-10-03 15:00:00 Outpatient R TATI ALEXANDER [facility] [id number] [facility] 2022-10-03 00:00:00 2022-10-03 00:00:00 Case Management Kaylene Bowling [facility] 1.2.840.114 350.1.13.10 4.2.7.2.686 [id number] [facility] 2022-10-02 09:20:00 2022-10-02 09:20:44 Outpatient R CHARAN ZEPEDA [facility] [id number] [facility] 2022-10-02 09:20:00 2022-10-02 09:20:44 Office Visit Charan Zepeda BUILDING 1.2.840.114 350.1.13.10 4.2.7.2.686 [id number] [facility] 2022-10-01 00:00:00 2022-10-01 00:00:00 Telephone Roro Zeepdaiha Nancydonna [facility] 1.2.840.114 350.1.13.10 4.2.7.2.686 [id number] [id number] [facility] 2022-10-01 00:00:00 2022-10-01 00:00:00 Telephone Charan Zepeda BUILDING 1.2.840.114 350.1.13.10 4.2.7.2.686 [id number] [facility] 2022-09-29 13:00:00 2022-09-29 13:28:13 Outpatient R CHARAN ZEPEDA [facility] [id number] [facility] 2022-09-29 13:00:00 2022-09-29 13:28:13 Paving Supervisor Visit 2, Adc Lab Charan Zepedasmeen [facility] BUILDING 1.2.840.114 350.1.13.10 4.2.7.2.686 [id number] [facility] 2022-09-29 00:00:00 2022-09-29 00:00:[address] [facility] BUILDING 1.84.114 350.1.13.10 4.2.7.2.686 [id number] [facility] 2022-09-24 13:30:00 2022-09-24 13:30:00 Outpatient R KRISTINE NORTON [facility] [id number] [facility] 2022-09-24 00:00:00 2022-09-24 00:00:00 Case Management Charan Zepedasmeen [facility] BUILDING 1.840.114 350.1.13.10 4.2.7.2.686 [id number] [facility] 2022-09-22 00:00:00 2022-09-22 00:00:00 Patient Secure Msg Doctor Unassigned, [place] [facility] 1..114 350.1.13.10 4.2.7.2.686 [id number] 053 [id number] [facility] 2022-09-18 00:00:00 2022-09-18 00:00:00 Telephone Kristine Norton [facility] BUILDING 1.2.84.114 350.1.13.10 4.2.7.2.686 [id number] [facility] 2022-09-10 00:00:00 2022-09-10 00:00:00 Patient Secure Msg Doctor Unassigned, [place] [facility] 1.2.840.114 350.1.13.10 4.2.7.2.686 [id number] [facility] 2022-09-09 16:00:00 2022-09-09 16:51:54 Office Visit Kristine Norton [facility] 1.2.840.114 350.1.13.10 4.2.7.2.686 [id number] [facility] 2022-09-09 16:00:00 2022-09-09 16:51:54 Outpatient R KRISTINE NORTON [facility] [id number] [facility] 2022-09-09 00:00:00 2022-09-09 00:00:00 Telephone Kristine Norton [facility] 1.2.840.114 350.1.13.10 4.2.7.2.686 [id number] [facility] 2022-09-04 00:00:00 2022-09-04 00:00:00 Orders Only Doctor Unassigned, [place] [facility] 1.2.840.114 350.1.13.10 4.2.7.2.686 [id number] [facility] 2022-09-03 14:40:00 2022-09-03 15:22:07 Office Visit [facility] 1.2.840.114 350.1.13.10 4.2.7.2.686 [id number] [id number] [facility] 2022-09-03 14:40:00 2022-09-03 15:22:07 Outpatient R CHARAN ZEPEDA [facility] [id number] [facility] 2022-09-02 16:30:00 2022-09-02 16:30:00 Office Visit Kristine [facility] 1.2.840.114 350.1.13.10 4.2.7.2.686 [id number] [facility] 2022-09-02 16:30:00 2022-09-02 16:28:38 Outpatient R KRISTINE NORTON [facility] [id number] [facility] 2022-08-22 11:00:00 2022-08-22 11:28:21 [facility] [id number] [facility] 2022-08-22 11:00:00 2022-08-22 11:28:21 [facility] 1.2.840.114 350.1.13.10 4.2.7.2.686 [id number] [facility] 2022-08-21 00:00:00 2022-08-21 00:00:00 Telephone Kristine Norton [facility] 1.2.840.114 350.1.13.10 4.2.7.2.686 [id number] [facility] 2022-08-20 11:20:00 2022-08-20 11:20:00 Outpatient R CHARAN ZEPEDA [facility] [id number] [facility] 2022-08-20 00:00:00 2022-08-20 00:00:00 Multidisci plinary Conference Audrey Miramontes [facility] 1.2.840.114 350.1.13.10 4.2.7.2.686 [id number] [facility] 2022-08-19 16:30:00 2022-08-19 16:56:04 Outpatient R KRISTINE NORTON [facility] [id number] [facility] 2022-08-19 16:30:00 2022-08-19 16:56:04 Office Visit Kristine Norton [facility] PROFESSIO NAL BUILDING 1.2.840.114 350.1.13.10 4.2.7.2.686 [id number] [facility] 2022-08-11 00:00:00 2022-08-11 00:00:00 Case Management Kaylene Bowlingcedrick [facility] 1.2.840.114 350.1.13.10 4.2.7.2.686 [id number] [facility] 2022-08-11 00:00:00 2022-08-11 00:00:00 Refill Kaylene Bowlingcedrick [facility] 1.2.840.114 350.1.13.10 4.2.7.2.686 [id number] [facility] 2022-08-07 00:00:00 2022-08-07 00:00:00 Telephone Kristine Norton [facility] 1.2.840.114 350.1.13.10 4.2.7.2.686 [id number] [facility] 2022-08-07 00:00:00 2022-08-07 00:00:00 Transition of Care Shayy Hernandez 1.2.840.114 350.1.13.10 4.2.7.2.686 [id number] [facility] 2022-08-06 14:00:00 2022-08-06 14:00:00 Outpatient CHARAN MASSEY [facility] [id number] [facility] 2022-08-05 08:02:00 2022-08-06 09:15:00 Outpatient KRISTINE YEPEZ [facility] [id number] [facility] 2022-08-05 08:02:00 2022-08-06 09:15:00 Hospital Encounter Kristine Norton [facility] 1.2.840.114 350.1.13.10 4.2.7.2.686 [id number] [facility] 2022-08-05 08:02:00 2022-08-06 09:15:00 Outpatient R SANTOS NORTONKI [facility] [id number] [facility] 2022-08-06 00:00:00 2022-08-06 00:00:00 Telephone Kristine Norton [facility] PROFESS[facility] 1.2.840.114 350.1.13.10 4.2.7.2.686 [id number] [facility] 2022-08-05 09:00:00 2022-08-05 23:59:00 Hospital Encounter Kristine Norton [facility] 1.2.840.114 350.1.13.10 4.2.7.2.686 [id number] [facility] 2022-08-05 09:00:00 2022-08-05 12:40:00 Surgery Kristine Norton [facility] 1.2.840.114 350.1.13.10 4.2.7.2.686 [id number] [facility] 2022-08-01 10:00:00 2022-08-01 10:00:00 Outpatient R SANTOS NORTONKI [facility] [id number] [facility] 2022-07-30 08:50:51 2022-07-30 23:59:00 Hospital Encounter Kristine Norton [facility] 1.2.840.114 350.1.13.10 4.2.7.2.686 [id number] [facility] 2022-07-30 14:15:00 2022-07-30 14:15:00 Outpatient R KRISTINE NORTON [facility] [id number] [facility] 2022-07-30 08:48:02 2022-07-30 08:49:00 Hospital Encounter Kristine Norton [facility] 1.840.114 350.1.13.10 4.2.7.2.686 [id number] [facility] 2022-07-30 08:48:02 2022-07-30 08:49:00 Outpatient R KRISTINE NORTON [facility] [id number] [facility] 2022-07-30 08:30:00 2022-07-30 08:47:00 Hospital Encounter Kristine Norton [facility] 1..840.114 350.1.13.10 4.2.7.2.686 [id number] [facility] 2022-07-09 14:20:00 2022-07-09 15:10:57 Outpatient R CHARAN ZEPEDA [facility] [id number] [facility] 2022-07-09 14:20:00 2022-07-09 15:10:57 [facility] 1..840.114 350.1.13.10 4.2.7.2.686 [id number] [facility] 2022-07-09 14:20:00 2022-07-09 15:10:57 Outpatient R CHARAN ZEPEDA [facility] [id number] [facility] 2022-07-09 14:20:00 2022-07-09 14:20:00 Outpatient R CHARAN ZEPEDA [facility] [id number] [facility] 2022-07-08 10:20:00 2022-07-08 11:00:25 Outpatient R TAMMY PADILLA [facility] [id number] [facility] 2022-07-08 10:20:00 2022-07-08 11:00:25 Office Visit Tammy Padilla [facility] [place] 1..840.114 350.1.13.10 4.2.7.2.686 [id number] [facility] 2022-07-07 00:00:00 2022-07-07 00:00:00 Telephone Kristine Norton [facility] 1..840.114 350.1.13.10 4.2.7.2.686 [id number] [facility] 2022-07-03 12:19:18 2022-07-03 23:59:00 Outpatient R KRISTINE NORTON [facility] [id number] [facility] 2022-07-03 12:19:18 2022-07-03 23:59:00 [facility] [id number] [facility] 2022-07-03 12:19:18 2022-07-03 23:59:00 Outpatient R ERROL [facility] [id number] [facility] 2022-07-03 12:19:18 2022-07-03 23:59:00 Outpatient R KRISTINE NORTON [facility] [id number] [facility] 2022-07-03 12:00:00 2022-07-03 23:59:00 Hospital Encounter Kristine Norton [facility] 1..840.114 350.1.13.10 4.2.7.2.686 [id number] [facility] 2022-07-03 12:19:18 2022-07-03 12:19:18 Outpatient R KRISTINE NORTON [facility] [id number] [facility] 2022-07-03 00:00:00 2022-07-03 00:00:00 Telephone Charan Zepeda [facility] 1.2.840.114 350.1.13.10 4.2.7.2.686 [id number] [facility] 2022-07-03 00:00:00 2022-07-03 00:00:00 Telephone Lavon Eric [facility] 1.2840.114 350.1.13.10 4.2.7.2.686 [id number] [facility] 2022-06-30 00:00:00 2022-06-30 00:00:00 Outpatient KRISTINE YEPEZ [facility] [id number] [facility] 2022-06-30 00:00:00 2022-06-30 00:00:00 Outpatient KRISTINE YEPEZ [facility] [id number] [facility] 2022-06-30 00:00:00 2022-06-30 00:00:00 Outpatient KRISTINE YEPEZ [facility] [id number] [facility] 2022-06-30 00:00:00 2022-06-30 00:00:00 Outpatient KRISTINE YEPEZ [facility] [id number] [facility] 2022-06-30 00:00:00 2022-06-30 00:00:00 Telephone Lavon Eric [facility] 1.0.114 350.1.13.10 4.2.7.2.686 [id number] [facility] 2022-06-27 00:00:00 2022-06-27 00:00:00 Telephone Kristine Norton [facility] 1.2840.114 350.1.13.10 4.2.7.2.686 [id number] [facility] 2022-06-27 00:00:00 2022-06-27 00:00:00 Telephone Lavon Eric [facility] 1.2840.114 350.1.13.10 4.2.7.2.686 [id number] [facility] 2022-06-25 08:11:52 2022-06-25 23:59:00 Hospital Encounter Lavon Eric [facility] 1.840.114 350.1.13.10 4.2.7.2.686 [id number] [facility] 2022-06-25 08:11:52 2022-06-25 23:59:00 Outpatient R CORRINA LAVON [facility] [id number] [facility] 2022-06-25 08:11:52 2022-06-25 23:59:00 Outpatient R LAVON ERIC [facility] [id number] [facility] 2022-06-25 08:20:00 2022-06-25 10:47:11 Outpatient R CHARAN ZEPEDA [facility] [id number] [facility] 2022-06-25 08:20:00 2022-06-25 10:47:11 [facility] [id number] [facility] 2022-06-25 08:20:00 2022-06-25 10:47:11 Office Visit Charan Zepeda [facility] 1..840.114 350.1.13.10 4.2.7.2.686 [id number] [facility] 2022-06-17 14:00:00 2022-06-17 16:23:32 Outpatient R KRISTINE NORTON [facility] [id number] [facility] 2022-06-17 14:00:00 2022-06-17 16:23:32 Telemedici ne Visit Kristine Norton [facility] 1..840.114 350.1.13.10 4.2.7.2.686 [id number] [facility] 2022-06-17 14:00:00 2022-06-17 16:23:32 Outpatient R RUFINAJOHN KRISTINE [facility] [id number] [facility] 2022-06-17 14:00:00 2022-06-17 16:23:32 Outpatient R RUFINAJOHN KRISTINE [facility] [id number] [facility] 2022-06-17 14:00:00 2022-06-17 16:23:32 Outpatient R RUFINAJOHN KRISTINE [facility] [id number] [facility] 2022-06-13 00:00:00 2022-06-13 00:00:00 Tati Sanchez [facility] 1..840.114 350.1.13.10 4.2.7.2.686 [id number] [facility] 2022-06-11 00:00:00 2022-06-11 00:00:00 Telephone Kristine Norton [facility] PROFESS[facility] 1.2.840.114 350.1.13.10 4.2.7.2.686 [id number] [facility] 2022-06-11 00:00:00 2022-06-11 00:00:00 Case Management Lavon Eric [facility] 1..840.114 350.1.13.10 4.2.7.2.686 [id number] [facility] 2022-06-10 08:21:00 2022-06-10 12:51:00 Outpatient R KRISTINE NORTON [facility] [id number] [facility] 2022-06-10 08:21:00 2022-06-10 12:51:00 Hospital Encounter Kristine Norton [facility] 1.2.840.114 350.1.13.10 4.2.7.2.686 [id number] [facility] 2022-06-10 08:21:00 2022-06-10 12:51:00 Outpatient R KRISTINE NORTON [facility] [id number] [facility] 2022-06-10 09:25:00 2022-06-10 11:45:00 Surgery Kristine Norton [facility] [place] 1..840.114 350.1.13.10 4.2.7.2.686 [id number] [facility] 2022-06-10 00:00:00 2022-06-10 00:00:00 Orders Only Doctor Unassigned, [place] [facility] 1.2840.114 350.1.13.10 4.2.7.2.686 [id number] [facility] 2022-06-09 11:30:00 2022-06-09 11:45:00 Laboratory Only Only, Adc Test Santos Nortonki [facility] 1..840.114 350.1.13.10 4.2.7.2.686 [id number] [facility] 2022-06-09 11:30:00 2022-06-09 11:30:00 Outpatient R KRISTINE NORTON [facility] [id number] [facility] 2022-06-03 14:00:00 2022-06-03 14:58:24 Outpatient R KRISTINE NORTON [facility] [id number] [facility] 2022-06-03 14:00:00 2022-06-03 14:58:24 Office Visit Kristine Norton [facility] PROFESS[facility] 1..840.114 350.1.13.10 4.2.7.2.686 [id number] [facility] 2022-06-03 14:00:00 2022-06-03 14:58:24 Outpatient R KRISTINE NORTON [facility] [id number] [facility] 2022-06-03 14:00:00 2022-06-03 14:58:24 Outpatient R ERROL KRISTINE [facility] [id number] [facility] 2022-06-03 14:00:00 2022-06-03 14:58:24 Outpatient R ERROL KRISTINE [facility] [id number] [facility] 2022-06-03 00:00:00 2022-06-03 00:00:00 Prep For Surgery Kristine Norton [facility] 1.2840.114 350.1.13.10 4.2.7.2.686 [id number] [facility] 2022-06-03 00:00:00 2022-06-03 00:00:00 Orders Only Doctor Unassigned, [place] [address].2.840.114 350.1.13.10 4.2.7.2.686 [id number] [facility] 2022-05-27 00:00:00 2022-05-27 00:00:00 Orders Only Doctor Unassigned, [place] [facility] 1.2.840.114 350.1.13.10 4.2.7.2.686 [id number] [facility] 2022-05-22 09:10:41 2022-05-22 23:59:00 Hospital Encounter Kristine Norton [facility] 1.2.840.114 350.1.13.10 4.2.7.2.686 [id number] [facility] 2022-05-22 09:10:00 2022-05-22 09:10:00 [facility] 1.2.840.114 350.1.13.10 4.2.7.2.686 [id number] [facility] 2022-05-22 09:09:11 2022-05-22 09:09:11 Hospital Encounter [facility] [place] 1.840.114 350.1.13.10 4.2.7.2.686 [id number] [facility] 2022-05-22 09:09:11 2022-05-22 09:09:11 Outpatient R KRISTINE NORTON [facility] [id number] [facility] 2022-05-22 09:10:21 2022-05-22 09:08:00 Outpatient R KRISTINE NORTON [facility] [id number] [facility] 2022-05-22 09:00:00 2022-05-22 09:08:00 Hospital Encounter [facility] .840.114 350.1.13.10 4.2.7.2.686 [id number] [facility] 2022-05-22 00:00:00 2022-05-22 00:00:00 Outpatient KRISTINE YEPEZ [facility] [id number] [facility] 2022-05-22 00:00:00 2022-05-22 00:00:00 Kristine Ward [facility] .840.114 350.1.13.10 4.2.7.2.686 [id number] [facility] 2022-05-19 00:00:00 2022-05-19 00:00:00 Cody Tan [facility] ..840.114 350.1.13.10 4.2.7.2.686 [id number] [facility] 2022-05-14 07:51:49 2022-05-14 23:59:00 Outpatient Taylor WOO NALINI Pollock [facility] [id number] [facility] 2022-05-14 07:51:49 2022-05-14 23:59:00 Hospital Encounter Nalini Evans [facility] 1.2.840.114 350.1.13.10 4.2.7.2.686 [id number] [facility] 2022-05-14 07:51:49 2022-05-14 07:51:49 Outpatient R LUISAELIZABETHNALINI ACOSTA [facility] [id number] [facility] 2022-05-14 00:00:00 2022-05-14 00:00:00 Orders Only Doctor Unassigned, [place] [facility] 1.2.840.114 350.1.13.10 4.2.7.2.686 [id number] [facility] 2022-05-14 00:00:00 2022-05-14 00:00:00 Letter (Out) Doctor Unassigned, [place] [facility] 1.2.840.114 350.1.13.10 4.2.7.2.686 [id number] [facility] 2022-05-13 14:00:00 2022-05-13 14:51:28 Office Visit Kristine Norton [facility] 1.2840.114 350.1.13.10 4.2.7.2.686 [id number] [facility] 2022-05-13 14:00:00 2022-05-13 14:51:28 Outpatient R KRISTINE NORTON [facility] [id number] [facility] 2022-05-13 14:00:00 2022-05-13 14:51:28 Outpatient R KRISTINE NORTON [facility] [id number] [facility] 2022-05-13 14:00:00 2022-05-13 14:51:28 Outpatient R KRISTINE NORTON [facility] [id number] [facility] 2022-05-13 14:00:00 2022-05-13 14:51:28 Outpatient R RUFINAJOHN KRISTINE [facility] [id number] [facility] 2022-05-13 14:00:00 2022-05-13 14:51:28 Outpatient KRISTINE YEPEZ [facility] [id number] [facility] 2022-05-13 00:00:00 2022-05-13 00:00:00 Orders Only Doctor Unassigned, [place] [facility] 1..840.114 350.1.13.10 4.2.7.2.686 [id number] [facility] 2022-05-12 00:00:00 2022-05-12 00:00:00 Telephone Tati Alexander [facility] 1.2.840.114 350.1.13.10 4.2.7.2.686 [id number] [facility] 2022-05-12 00:00:00 2022-05-12 00:00:00 Telephone Kristine Norton [facility] 1..840.114 350.1.13.10 4.2.7.2.686 [id number] [facility] 2022-05-07 14:15:00 2022-05-07 14:30:00 Paving Supervisor Visit Pob, Adc Lab Main Nalini Evans [facility] 1..840.114 350.1.13.10 4.2.7.2.686 [id number] [facility] [facility]-07 14:15:00 2022-05-07 14:15:00 Outpatient NALINI JAMESON [facility] [id number] [facility] 2022-05-07 14:15:00 2022-05-07 14:15:00 Outpatient R VANNESA EVANSJAMESTaylor [facility] [id number] [facility] 2022-05-07 14:15:00 2022-05-07 14:15:00 Outpatient R LUISAELIZABETHNALINI ACOSTA [facility] [id number] [facility] 2022-05-07 00:00:00 2022-05-07 00:00:00 Orders Only Doctor Unassigned, [place] [facility] 1.2.840.114 350.1.13.10 4.2.7.2.686 [id number] [facility] 2022-05-06 12:50:59 2022-05-06 23:59:00 Outpatient R TATI ALEXANDER [facility] [id number] [facility] 2022-05-06 12:50:59 2022-05-06 23:59:00 Hospital Encounter Tati Alexander [facility] 1.2.840.114 350.1.13.10 4.2.7.2.686 [id number] [facility] 2022-05-06 12:50:59 2022-05-06 23:59:00 Outpatient R TATI ALEXANDER [facility] [id number] [facility] 2022-05-06 12:50:59 2022-05-06 23:59:00 Outpatient R TATI ALEXANDER [facility] [id number] [facility] 2022-05-06 12:50:59 2022-05-06 23:59:00 Outpatient R TAIT ALEXANDER [facility] [id number] [facility] 2022-05-06 12:50:29 2022-05-06 23:59:00 Outpatient R TATI ALEXANDER [facility] [id number] [facility] 2022-05-06 12:50:29 2022-05-06 23:59:00 Hospital Encounter MadonnaTati boykni [facility] 1..840.114 350.1.13.10 4.2.7.2.686 [id number] [facility] 2022-05-06 12:50:29 2022-05-06 23:59:00 Outpatient R MADONNATATI Boykin [facility] [id number] [facility] 2022-04-21 00:00:00 2022-04-21 00:00:00 Telephone [facility] 1.2.840.114 350.1.13.10 4.2.7.2.686 [id number] [facility] 2022-04-18 13:26:01 2022-04-18 23:59:00 Hospital Encounter Catherine Tati [facility] 1..840.114 350.1.13.10 4.2.7.2.686 [id number] [facility] 2022-04-18 13:25:46 2022-04-18 13:25:46 Outpatient R CATHERINEBEVIE [facility] [id number] [facility] 2022-04-18 13:25:46 2022-04-18 13:25:46 Outpatient R CATHERINE TATI [facility] [id number] [facility] 2022-04-18 13:25:46 2022-04-18 13:25:46 Hospital Encounter MadonnaTati boykin [facility] 1..840.114 350.1.13.10 4.2.7.2.686 [id number] [facility] 2022-04-16 13:30:00 2022-04-16 13:30:00 Outpatient R JEANNINE SOSA [facility] [id number] [facility] 2022-04-09 00:00:00 2022-04-09 00:00:00 Telephone Tati Alexander [facility] [place] 1.840.114 350.1.13.10 4.2.7.2.686 [id number] [facility] 2022-03-31 00:00:00 2022-03-31 00:00:00 Telephone Tati Alexander [facility] [place]EL [facility] 1.20.114 350.1.13.10 4.2.7.2.686 [id number] [facility] 2022-03-31 00:00:00 2022-03-31 00:00:00 Telephone Tati Alexander [facility] [place]EL [facility] 1.840.114 350.1.13.10 4.2.7.2.686 [id number] [facility] 2022-03-28 13:04:13 2022-03-28 23:59:00 Outpatient R TATI ALEXANDER [facility] [id number] [facility] 2022-03-28 13:00:00 2022-03-28 23:59:00 Hospital Encounter Tati Alexander [facility] 1.840.114 350.1.13.10 4.2.7.2.686 [id number] [facility] 2022-03-27 11:00:00 2022-03-27 11:25:10 Outpatient R TATI ALEXANDER [facility] [id number] [facility] 2022-03-27 11:00:00 2022-03-27 11:15:00 Paving Supervisor Visit Lab, Carmelo Messer Tati Alexander [facility] [place]?[facility]IEL [facility] 1.284.114 350.1.13.10 4.2.7.2.686 [id number] [facility] 2022-03-27 11:00:00 2022-03-27 11:00:00 Outpatient R TATI ALEXANDER [facility] [id number] [facility] 2022-03-27 00:00:00 2022-03-27 00:00:00 Telephone Tati Alexander [facility] [place] 1.2.840.114 350.1.13.10 4.2.7.2.686 [id number] [facility] 2022-03-19 10:00:00 2022-03-19 12:04:32 Outpatient R TATI ALEXANDER [facility] [id number] [facility] 2022-03-19 10:00:00 2022-03-19 10:30:00 Office Visit Tati Alexander [facility] [place]EL [facility] 1..840.114 350.1.13.10 4.2.7.2.686 [id number] [facility] 2022-03-19 10:00:00 2022-03-19 10:00:00 Outpatient R TATI ALEXANDER [facility] [id number] [facility] 2022-02-05 00:00:00 2022-02-05 00:00:00 Orders Only Doctor Unassigned, [place] [address]..840.114 350.1.13.10 4.2.7.2.686 [id number] [id number] [facility] 2022-01-15 00:00:00 2022-01-15 00:00:00 Telephone Paul Ortega [facility]?BANNERLucretia [facility] 1..840.114 350.1.13.10 4.2.7.2.686 [id number] [facility] 2021-11-13 00:00:00 2021-11-13 00:00:00 Orders Only Doctor Unassigned, [place] [facility] 1..114 350.1.13.10 4.2.7.2.686 [id number] [id number] [facility] 2021-11-12 00:00:00 2021-11-12 00:00:00 Telephone Paul Ortega [facility] [place]?[facility]ZIEL [facility] 1.840.114 350.1.13.10 4.2.7.2.686 [id number] [facility] 2021-11-07 00:00:00 2021-11-07 00:00:00 Telephone Messi [place] [facility] 1..114 350.1.13.10 4.2.7.2.686 [id number] [facility] 2021-09-23 14:30:00 2021-09-23 15:04:26 Outpatient R PAUL ORTEGA [facility] [id number] [facility] 2021-09-23 14:26:28 2021-09-23 15:04:26 Office Visit Paul [facility]tega [facility] 1.114 350.1.13.10 4.2.7.2.686 [id number] [facility] 2021-09-19 00:00:00 2021-09-19 00:00:00 Telephone [facility] Medical [facility] Building 1.84.114 350.1.13.10 4.2.7.2.686 [id number] [facility] 2021-09-18 00:00:00 2021-09-18 00:00:00 Orders Only Doctor Unassigned, [place] [facility] 1.0.114 350.1.13.10 4.2.7.2.686 [id number] [facility] 2021-09-06 00:00:00 2021-09-06 00:00:00 Telephone Messi [place] [facility] 1.2.840.114 350.1.13.10 4.2.7.2.686 [id number] [facility] 2021-09-02 16:00:00 2021-09-02 16:00:00 Outpatient R PAUL ORTEGA [facility] [id number] [facility] 2021-09-02 16:00:00 2021-09-02 16:00:00 Outpatient R PAUL ORTEGA [facility] [id number] [facility] 2021-09-02 14:42:50 2021-09-02 15:05:38 Office Visit Ortega Paul Dickson [facility] Medical Office Building 1.2.840.114 350.1.13.10 4.2.7.2.686 [id number] [facility] 2021-09-02 00:00:00 2021-09-02 00:00:00 Orders Only Doctor Unassigned, [place] [facility] 1.2.840.114 350.1.13.10 4.2.7.2.686 [id number] [facility] 2021-08-30 00:00:00 2021-08-30 00:00:00 Telephone OrtegaPaul mercado [facility] Medical Office Building 1.2.840.114 350.1.13.10 4.2.7.2.686 [id number] [facility] 2021-08-22 13:15:00 2021-08-22 13:15:00 Outpatient MESSI BENDER [facility] [id number] [facility] 2021-08-22 13:15:00 2021-08-22 13:15:00 Outpatient MESSI BENDER [facility] [id number] [facility] 2021-08-22 09:34:32 2021-08-22 10:07:16 Office Visit Paul Ortega [facility] 1.2.840.114 350.1.13.10 4.2.7.2.686 [id number] [facility] 2021-08-22 09:45:00 2021-08-22 09:45:00 Outpatient R TORI ORTEGAIG [facility] [id number] [facility] 2021-08-21 00:00:00 2021-08-21 00:00:00 Orders Only Doctor Unassigned, [place] [facility] 1.2.840.114 350.1.13.10 4.2.7.2.686 [id number] [facility] 2021-08-06 00:00:00 2021-08-06 00:00:00 Telephone Padmini Messi [facility] Medical Office Building 1.2.840.114 350.1.13.10 4.2.7.2.686 [id number] [facility] 2021-07-31 13:20:00 2021-07-31 23:59:00 Outpatient R PADMINI MESSI [facility] [id number] [facility] 2021-07-31 13:20:00 2021-07-31 23:59:00 Outpatient R MESSI [place] [facility] [id number] [facility] 2021-07-31 13:20:00 2021-07-31 23:59:00 Hospital Encounter Padmini Messi [facility] Medical Office Building 1.2.840.114 350.1.13.10 4.2.7.2.686 [id number] [facility] 2021-07-31 13:20:00 2021-07-31 23:59:00 Outpatient R MESSI [place] [facility] [id number] [facility] 2021-07-31 13:09:07 2021-07-31 14:05:14 Office Visit Messi [place] [facility]iel [facility] Medical Office Building 1..840.114 350.1.13.10 4.2.7.2.686 [id number] [facility] 2021-07-31 13:15:00 2021-07-31 13:15:00 Outpatient PAUL BURGESS [facility] [id number] [facility] 2021-07-31 13:15:00 2021-07-31 13:15:00 Outpatient PAUL BURGESS [facility] [id number] [facility] 2021-07-31 13:15:00 2021-07-31 13:15:00 Outpatient PAUL BURGESS [facility] [id number] [facility] 2021-07-18 00:00:00 2021-07-18 00:00:00 Orders Only Doctor Unassigned, [place] [facility] ..114 350.1.13.10 4.2.7.2.686 [id number] [id number] [facility] 2021-07-18 00:00:00 2021-07-18 00:00:00 Orders Only Doctor Unassigned, [place] [facility] 1.84.114 350.1.13.10 4.2.7.2.686 [id number] [id number] [facility] 2021-07-15 00:00:00 2021-07-15 00:00:00 Telephone Paul Ortega [facility] 1.840.114 350.1.13.10 4.2.7.2.686 [id number] [facility] 2021-07-08 00:00:00 2021-07-08 00:00:00 Telephone Paul Ortega [facility] Specialti memo Diez 1.2.840.114 350.1.13.10 4.2.7.2.686 [id number] [facility] 2021-07-03 13:11:39 2021-07-03 23:59:00 Outpatient PAUL ORTEGA [facility] [id number] [facility] 2021-07-03 13:11:39 2021-07-03 23:59:00 Hospital Encounter Paul Ortega [facility] Specialti memo Diez 1.2.840.114 350.1.13.10 4.2.7.2.686 [id number] [facility] 2021-07-03 13:11:39 2021-07-03 23:59:00 Outpatient PAUL ORTEGA [facility] [id number] [facility] 2021-07-03 12:50:00 2021-07-03 13:42:06 Office Visit Ortega, Paul Dickson [place] [facility] [place] 1.2.840.114 350.1.13.10 4.2.7.2.686 [id number] [facility] 2021-07-03 13:00:00 2021-07-03 13:00:00 Outpatient MESSI BENDER [facility] [id number] [facility] 2021-07-03 13:00:00 2021-07-03 13:00:00 Outpatient MESSI BENDER [facility] [id number] [facility] 2021-06-28 00:00:00 2021-06-28 00:00:00 Orders Only Doctor Unassigned, [place] [facility] 1.2.840.114 350.1.13.10 4.2.7.2.686 [id number] [id number] [facility] 2021-06-05 13:45:11 2021-06-05 14:00:11 Office Visit Messi [place] [facility] Surgical Specialti memo Diez 1.2.840.114 350.1.13.10 4.2.7.2.686 [id number] [facility] 2021-06-05 13:45:00 2021-06-05 13:45:00 Outpatient R MESSI [place] [facility] [id number] [facility] 2021-05-31 00:00:00 2021-05-31 00:00:00 Orders Only Doctor Unassigned, [place] [facility] 1.2.840.114 350.1.13.10 4.2.7.2.686 [id number] [facility] 2021-05-22 13:44:13 2021-05-22 23:59:00 Hospital Encounter Paul Ortega [facility] 1.2.840.114 350.1.13.10 4.2.7.2.686 [id number] [facility] 2021-05-22 13:44:13 2021-05-22 23:59:00 Outpatient R SHANNON PAUL [facility] [id number] [facility] 2021-05-22 13:07:08 2021-05-22 13:43:00 Outpatient R SHANNON PAUL [facility] [id number] [facility] 2021-05-22 13:07:08 2021-05-22 13:43:00 Hospital Encounter Paul Ortega [facility] 1.2.840.114 350.1.13.10 4.2.7.2.686 [id number] [facility] 2021-05-22 13:15:00 2021-05-22 13:15:00 Outpatient R MESSI [place] [facility] [id number] [facility] 2021-05-22 12:59:45 2021-05-22 13:14:45 Office Visit Messi [place] [facility] Surgical Specialti memo Diez 1.2.840.114 350.1.13.10 4.2.7.2.686 [id number] [facility] 2021-05-08 13:00:11 2021-05-08 13:30:42 Office Visit Paul Ortega [facility] Surgical Specialti memo Diez 1.2.840.114 350.1.13.10 4.2.7.2.686 [id number] [facility] 2021-05-08 13:15:00 2021-05-08 13:15:00 Outpatient R PAUL ORTEGA [facility] [id number] [facility] 2021-05-08 00:00:00 2021-05-08 00:00:00 Orders Only Doctor Unassigned, [place] [facility] 1.2.840.114 350.1.13.10 4.2.7.2.686 [id number] [facility] 2021-04-24 12:52:25 2021-04-24 13:31:40 Office Visit Shannon Paul Dickson [facility] Surgical Special memo Diez 1.2.840.114 350.1.13.10 4.2.7.2.686 [id number] [facility] 2021-04-24 13:00:00 2021-04-24 13:00:00 Outpatient R PAUL ORTEGA [facility] [id number] [facility] 2021-04-17 14:06:01 2021-04-17 23:59:00 Hospital Encounter Ortega Paul Dickson [facility] Surgical Specialti memo Diez 1.2.840.114 350.1.13.10 4.2.7.2.686 [id number] [facility] 2021-04-17 14:06:01 2021-04-17 23:59:00 Outpatient PAUL ORTEGA [facility] [id number] [facility] 2021-04-17 13:24:29 2021-04-17 14:35:52 Office Visit Paul Ortega [facility] Surgical Specialti memo Diez 1.2.840.114 350.1.13.10 4.2.7.2.686 [id number] [facility] 2021-04-17 13:15:00 2021-04-17 13:15:00 Outpatient R PAUL ORTEGA [facility] [id number] [facility] Results Test Description Test Time Test Comments Results Result Co mments Source [facility] Only[facility]2022-10-19 17:28:30* Test Item Value Reference Range Interpretation Comme nts ABO & RH (test code = 20) O Positive Performed at [facility] Laboratory Services [facility] Blood [place] [address]Toll Free: [phone] No. [id number] [facility] and Screen - ONCE [id number] 17:25:36* Test Item Value Reference Range Interpretation Comme nts ABO & RH (test code = 20) O Positive Performed at [facility] Laboratory Services [facility] Blood [place] [address]Toll Free: [phone] No. [id number] IAT (test code = 1185) Negative Performed at [facility] Laboratory [facility] Blood [place] [address]Toll Free: [phone] No. [id number] [facility] HospitalL[facility] Acid Whole [id number] 16:44:29* Test Item Value Reference Range Interpretation Comme nts LACTIC ACID (test code = 6577133241) 1.09 mmol/L 0.50-2.20 Lab Interpretation (test cod e = 95087-2) Normal [facility]ERR[facility]IN [id number] 20:44:43* Test Item Value Reference Range Interpretation Comme nts FERRITIN (test code = 1142495536) 96.8 ng/mL 11.0-264.0 ROBERT (test code = ROBERT) Biotin has been reported to cause a negative bias, interpret results relative to patient's use of biotin. Lab Interpretation (test code = 13070-3) Normal [facility] HospitalIRON [id number] 20:20:18* Test Item Value Reference Range Interpretation Comme nts IRON (test code = 8771384495) 115 ug/dL 50-160 TIBC (test code = 3480347759) 367 ug/dL 250-410 % FE SAT (test code = 3626038871) 31 % 20-50 Lab Interpretation (test cod e = 59966-3) Normal [facility] HospitalHEP[facility] FUNCTION PANEL (87184) (ALB,T.PRO,BILI T,BU/BC,ALT,AST,ALK PHOS)2022-05-07 20:11:20* Test Item Value Reference Range Interpretation Comme nts TOTAL BILI (test code = 6039622602) 0.5 mg/dL 0.1-1.1 BILI UNCON (test code = 8689596894) 0.3 mg/dL 0.1-1.1 BILI CONJ (test code = 0925933273) 0.0 mg/dL 0.0-0.3 T PROTEIN (test code = 8467500382) 7.8 g/dL 6.3-8.2 ALBUMIN (test code = 7198302079) 3.9 g/dL 3.5-5.0 ALK PHOS (test code = 4257192470) 76 U/L 34-122 ALTv (test code = 1742-6) 33 U/L 5-35 AST(SGOT) (test code = 3579573302) 56 U/L 13-40 H Lab Interpretation (test cod e = 68479-1) Abnormal [facility]OLIC PANEL (NA, K, CL, CO2, GLUCOSE, BUN, CREATININE, CA)2022-05-07 20:11:00* Test Item Value Reference Range Interpretation Comme nts NA (test code = 7391624810) 142 mmol/L 135-145 K (test code = 6039090176) 3.7 mmol/L 3.5-5.0 CL (test code = 1529414224) 105 mmol/L 98-108 CO2 TOTAL (test code = 4628373351) 31 mmol/L 23-31 AGAP (test code = 6009992954) 2-16 BUN (test code = 3610412393) 13 mg/dL 7-23 GLUCOSE (test code = 5775788105) 61 mg/dL 70-110 L CREATININE (test code = 5279678490) 0.75 mg/dL 0.50-1.04 CALCIUM (test code = 1831423919) 9.4 mg/dL 8.6-10.6 eGFR (test code = 3117133084) mL/min/1.73m2 ROBERT (test code = ROBERT) Association of Glomerular Filtration Rate (GFR) and Staging of Kidney Disease* + --+ --+ ------+| GFR (mL/min/1.73 m2) ?| With Kidney Damage ?| ?Without Kidney Damage+ --------+ --------+ +| ?>90 ?| ?Stage one ?| ? Normal ?+ ---+ ---+ -------+| ?60-89 ?| ?Stage two ?| ? Decreased GFR ? + --+ --+ ------+| ?30-59 ?| ?Stage three ?| ? Stage three ? + --+ --+ ------+| ?15-29 ?| ?Stage four ? | ? Stage four ?+ ---+ ---+ -------+| ?<15 (or dialysis) ? ?| ?Stage five ? | ? Stage five ?+ ---+ ---+ -------+ *Each stage assumes the associated GFR level has been in effect for at least three months. ?Stages 1 to 5, with or without kidney disease, indicate chronic kidney disease. Notes: Determination of stages one and two (with eGFR >59mL/min/1.73 m2) requires estimation of kidney damage for at least three months as defined by structural or functional abnormalities of the kidney, manifested by either:Pathological abnormalities or Markers of kidney damage (including abnormalities in the composition of the blood or urine or abnormalities in imaging tests). Lab Interpretation (test code = 65102-1) Abnormal [facility] WITH [id number] 19:22:12* Test Item Value Reference Range Interpretation Comme nts WBC (test code = 6690-2) See_Comment [Automated [email or web address]] The system which generated this result transmitted reference range: 4.30 - 11.10 10*3/?L. The reference range was not used to interpret this result as normal/abnormal. RBC (test code = 789-8) See_Comment [Automated [employer]] The system which generated this result transmitted reference range: 3.93 - 5.25 10*6/?L. The reference range was not used to interpret this result as normal/abnormal. HGB (test code = 718-7) 13.2 g/dL 11.6-15.0 HCT (test code = 4544-3) 41.2 % 35.7-45.2 MCV (test code = 787-2) 90.2 fL 80.6-95.5 MCH (test code = 785-6) 28.9 pg 25.9-32.8 MCHC (test code = 786-4) 32.0 g/dL 31.6-35.1 RDW-SD (test code = 41912-1) 45.5 fL 39.0-49.9 RDW-CV (test code = 788-0) 13.7 % 12.0-15.5 PLT (test code = 777-3) See_Comment [Automated [employer] ge] The system which generated this result transmitted reference range: 166 - 358 10*3/?L. The reference range was not used to interpret this result as normal/abnormal. MPV (test code = 29823-3) 10.3 fL 9.5-12.9 NRBC/100 WBC (test code = 1205934172) See_Comment [Automated [employer] ssage] The system which generated this result transmitted reference range: 0.0 - 10.0 /100 WBCs. The reference range was not used to interpret this result as normal/abnormal. NRBC x10^3 (test code = 7404587029) <0.01 See_Comment [Automated me ssage] The system which generated this result transmitted reference range: 10*3/?L. The reference range was not used to interpret this result as normal/abnormal. GRAN MAT (NEUT) % (test code = 770-8) 45.2 % IMM GRAN % (test code = 1936630640) 0.40 % LYMPH % (test code = 736-9) 44.6 % MONO % (test code = 5905-5) 6.7 % EOS % (test code = 713-8) 2.6 % BASO % (test code = 706-2) 0.5 % GRAN MAT x10^3(ANC) (test code = 0428676392) 2.48 10*3/uL 1.88-7.09 IMM GRAN x10^3 (test code = 9716153366) <0.03 0.00-0.06 LYMPH x10^3 (test code = 731-0) 2.45 10*3/uL 1.32-3.29 MONO x10^3 (test code = 742-7) 0.37 10*3/uL 0.33-0.92 EOS x10^3 (test code = 711-2) 0.14 10*3/uL 0.03-0.39 BASO x10^3 (test code = 704-7) 0.03 10*3/uL 0.01-0.07 [facility] Notes Date/Time Note Provider Source 2024-01-04 15:04:22 aq87L/R1GXCA3c//Psx/ wu1lMiVfUG+k p+TwX4Bu4YiVakAqi4nAkrA7lCLBqzWm 6167-99-96T17:04:22 Informed my name is Caprice Zepeda support nurse. Pt identified by name and . Spoke with the patient states she has already spoken with Caprice CONTRERAS earlier.This call was addressed in a different encounter. 04732-4Zjiptlrhp encounter YfxtFS7843-57-99M53:06:50Telepho ne encounter NoteTXT1.2.840.500592.1.13.104.2 .7.2.239338|[id number] e for patient uegw77221-1MdcbTZROYXLSLURQphahm ni C-CDA narrative [id number] E Gingery RNUTMBUT - [address] XtktSszfmrmmpFuaygxrmhXKVK223362 9400UNVVVLDJWVFKHQPWDTEHFG5622-5 :06:501.2.840.118365.1.72 .3.15|1.2.840.603816.1.13.104.2. 7.2.727879_[id number] Caprice López RN [facility] 2024-01-04 14:35:30 4XMq5RrEQJhyphqA+Xzu hhUHnnPlPBUP UFF+4BVsFt1XE4xoCi939AeklECQFRFy 1638-72-77K65:35:30 Pt called saying she was talking to a nurse about the symptoms she was having but was not sure who she talked to. She would like a callback. 69244-6Wudbnqtke encounter XfwnLJ0679-76-02Q33:49:51Telepho ne encounter NoteTXT1.2.840.798341.1.13.104.2 .7.2.473048|[id number] for patient ojkp31415-6MtnnDLGGADELKOZGpmzib ni Hartley-MARYJANE narrative [id number] E Mck[address] DkjfWqyulsujuDjathqhcpFCVE845676 5742SKATCXHQIDEALEANRQCDMC6030-1 :49:511.2.840.795840.1.72 .3.15|1.2.840.172628.1.13.104.2. 7.2.727879_[id number] Moises Ge [facility] 2024-01-04 14:21:53 ieyD7byxBYY6VNWCQCjm X5/J4Z7dHjfA llbQ4yLlpCTo/n/zs6y7I7fflMdzVz7H 7856-80-45Z58:21:53 Informed my name is Vasques Gingery RN Dr. Aziz support nurse. Pt identified by name and . Spoke with the patient, states she was released from [facility] in [place] on Thursday01/02/24.She states that she passed out, and was taken to the hospital by her daughter but does not remember passing her, per patient it was due to low blood pressure. She states that prior to being discharged her blood pressure went up and she was given some prescriptions one was Losartan 25 mg and Atorvastatin 40 mg. She said she is not taking those medications because she read that one of them can give her cancer.Informed the patient we would contact [facility] to request her records, and I would notify Dr. Zepeda team she was discharged. 42416-5Rbsmbldsq encounter DisfRP5991-67-22Y67:29:02Telepho ne encounter NoteTXT1.2.840.795749.1.13.104.2 .7.2.813851|[id number] e for patient jocb81217-9ZvgsTFFWHCQSPNRBcmtxy ni C-CDA narrative [id number] E Gingery RNUT[address] QbadSgknxeynpTbcoexxhmNRPP220702 5131AUSLQGWSWNTZVSZXMROEJU9518-5 2-05T14:29:021.2.840.575963.1.72 .3.15|1.2.840.394197.1.13.104.2. 7.2.727879_[id number] Caprice López RN [facility] 2024-01-04 11:20:19 jaEi23x6WPvMY8eZF0sK d4hpm12FaWJR P2vbNjrQXa5m6cEjaVshIr3bgHedVKVl 5624-32-10U28:20:19 Patient contacted supporting nurse Caprice. Attempted to transfer and was unavailable. Please contact patient at [phone] signed by Christi Phelan at 01/04/2024 11:21 AM TPK74844-4Djymvsbes encounter ZcukTF1428-85-69O26:21:50Telepho ne encounter NoteTXT1.2.840.183676.1.13.104.2 .7.2.689861|2339194434SFWmfgvxcu e for patient bnrj27818-2DccyAFLXAHNTJOKBewxhp ni C-CDA narrative ofbr472063039Yufp [address] 1313FTGBRJVCYTEQQIZHLFFIVR3508-4 1:21:501.2.840.286201.1.72 .3.15|1.2.840.055024.1.13.104.2. 7.2.727879_[id number] [facility] 10:27:13 2+Z5lc5CBHwUOdK+OHKf T5hepb6v9ItO TcbwQHj1A1sGhT4HJnebmdOai9VjZ3KD 1257-06-37F00:27:13 Left detailed voicemail on patient phone with the purpose of the call and the contact information for pt to return call to clinic [place] speak [place] Cap[place] [address]-5Onsheiice encounter OmthTY2470-50-03Z31:27:58Telepho ne encounter NoteTXT1.2.840.246470.1.13.104.2 .7.2.919279|1423175237GYMjhxarwy e for patient fxzb60817-1GlebWKLBJSLVNYBNiyfop ni C-CDA narrative [address] 2195JPVKICKYODXWLXORNPZLCX1151-9 2-05T10:27:581.2.840.005775.1.72 .3.15|1.2.840.621875.1.13.104.2. 7.2.727879_[id number] [facility] 2024-01-04 09:54:06 r780FY6OQFYTw4sAb/R6 6MMTloka+noU 2YDWW2C30qPBYNS+S7sSEX62EVOsOdON 6428-53-03P86:54:06 The patient called in to inform us that she was released on Thursday. She would like to receive a call to discuss her visit. 82943-8Msghhxvwr encounter VuhcWG6273-52-32D86:55:02Telepho ne encounter NoteTXT1.2.840.396310.1.13.104.2 .7.2.137825|[id number] e for patient fjwh17074-3GlpkATZRKOQUSIWLepmxk ni C-CDA narrative jtpm020797663Zatmk E. Williams[address] DpzvPgbqyopoqHfdhsnqvdWSIH849405 4072KZXZYKHQNOEUYFFYJCKUQY6611-3 09:55:021.2.840.176852.1.72 .3.15|1.2.840.943544.1.13.104.2. 7.2.727879_[id number] Ginette Wilks [facility] 2023-12-31 15:18:10 JDP8m8Hzp2e24GeeuIOt T+YBoP+Jpr9/ HQorrJ5/7BkaiH5WNAlyytncbG0V3ATj 4000-23-94G57:18:10 Sent a Rypos message to the patient to contact the clinic once she discharges. 18123-9Wgofliohg encounter CxmpRO5826-25-35H52:18:38Telepho ne encounter NoteTXT1.2.840.718614.1.13.104.2 .7.2.280965|[id number] e for patient xuvt95260-1VkbtBEYHJFTFIRFFxziuq ni C-CDA narrative edcg376190119Ztvjfk E Gingery RNUT[address] NzjeXbeprltweRuapmwodgKOYZ377837 0126XQLMCKDZRFXWVOPEFXKQEM4205-2 5:18:381.2.840.930450.1.72 .3.15|1.2.840.063486.1.13.104.2. 7.2.727879_[id number] Caprice López RN [facility] 2023-12-31 14:56:13 qH6Kp8Qm5aE1GMqWRg+V EXZ1Qbx3hxUP buvpv3BR2BNfWwv5fg3jZiQcbo9/OJ21 4272-51-87V99:56:13 Thank you for the update, if she could let us know when she is out of the hospital so we can request records thatd be helpful 08345-7Sjgpwxbdx encounter JugpJM7251-05-16D68:56:42Telepho ne encounter NoteTXT1.2.840.186549.1.13.104.2 .7.2.149799|4880553974TJZxnhdqaw e for patient krzt38713-8IfobUKFRJFUETNGHfgrxa ni C-CDA narrative text[address] 7893WWMOOGZPIOXCDKODYMHRFZ4268-6 4:56:421.2.840.469381.1.72 .3.15|1.2.840.630479.1.13.104.2. 7.2.727879_[id number] [facility] 2023-12-31 13:23:41 SeIgz4cPKMsd6MR2SJNq TpQ28doagoDp zaNUNFE7hiaU/0XkRJroweLfXjsVSKNu 9179-45-72D40:23:41 Noted:Routed message to [place] [address]-2Hshuaufrk encounter WbqxCG1122-77-64B06:27:23Telepho ne encounter NoteTXT1.2.840.138661.1.13.104.2 .7.2.743472|[id number] e for patient byux69393-7QahsWHPQEIYXPPWXqzgot ni C-CDA narrative xmsi351488445Hmvzgx E Gingery RNUT[address] IuerOlqpgmotiDdfqkbukuIXBE075228 6504DEJHWOSZQXUMEYMJGXZDDO2215-5 2-01T13:27:231.2.840.912492.1.72 .3.15|1.2.840.250626.1.13.104.2. 7.2.727879_[id number] Caprice López RN [facility] 2023-12-31 13:10:07 IiergFlozQZGilK1/IHR HhoYbNBqfb71 7ExToiv0B+llvTUUgnvYIBsT3ma6fiXl 2901-78-86M10:10:07 Chepe Reilly is a 68 year old femalePatient is calling wanting to notify she is currently admitted x3days due to passing out and having procedure on heart. [phone] (home)[facility] [place]-[phone] signed by Chantel Bell at 12/31/2023 1:12 PM TAK90716-7Kyoxlubte encounter IcetFX4402-65-89X34:12:06Telepho ne encounter NoteTXT1.2.840.646330.1.13.104.2 .7.2.579839|[id number] e for patient hzag87964-4DjoaTQYKDELKKQQMkvlwh ted C-CDA narrative jqxy82855739Dxiknhi [address]TX[address] 8500MKZEOXJBCDUMZXGWRRLMOJ5885-2 3:12:061.2.840.740218.1.72 .3.15|1.2.840.710003.1.13.104.2. 7.2.727879_[id number] [facility] 13:00:00 Dwwq97BhOEoGc0qZie6l TrYWj+dWnXxH TuXZVRBjU2hv+HYuHKYoaqdl0dk9jXCB 7505-02-61L86:00:00 Images from the original note were not included.Venipuncture collection performed by clean technique on the left anticubitus. Total of 1 attempts were made. Slight pressure and a bandage/dressing were applied to the site(s). The patient experienced no complications. The following specimens were processed according to instructions and sent to [facility] laboratories per lab order on 08/11/2023: LT BLUE SST RED LAV 1 PPT DK GREEN (LiHep) DK GREEN (SodH) HENLEY DK BLUE (K2) DK BLUE (S) ACD Blood Culture NIPT/NTD 47847-1Jkyzu JgwmHP8773-37-06P93:06:20Nurse NoteTXT1.2.840.812728.1.13.104.2 .7.2.805734|[id number] e for patient jqwn60024-9Yujbt ElwbCY181722398Cqbq [address] 1019JNMNVHOVWSHGETBRFVABEO4078-1 9-12T13:06:201.2.840.996596.1.72 .3.15|1.2.840.953663.1.13.104.2. 7.2.727879_[id number] Dee Burnett [facility] 2023-07-20 11:00:00 afwhel+DGnUcaQ2aQuR7 RelyukKtgRup O6Mor9G+OpVxnGTaCexLAY1Hwa5iHPYI 1459-08-43Y36:00:00 Images from the original note were not included.Venipuncture collection performed by clean technique on the left anticubitus. Total of 1 attempts were made. Slight pressure and a bandage/dressing were applied to the site(s). The patient experienced no complications. The following specimens were processed according to instructions and sent to [facility] laboratories per lab order on 07/20/2023: LT BLUE SST RED LAV 1 PPT DK GREEN (LiHep) DK GREEN (SodH) HENLEY DK BLUE (K2) DK BLUE (S) ACD Blood Culture NIPT/NTD 61228-1Rehwe ElpqNA4141-48-74I47:09:00Nurse NoteTXT1.2.840.358638.1.13.104.2 .7.2.722499|[id number] e for patient yqjo09575-5Lbhha NoteLNUT[address] UfjxCtltsibjbXnlounkxtKVNH967212 7453GMBSGBNUVTENFOBYSOQXFN5191-6 1:09:001.2.840.223639.1.72 .3.15|1.2.840.086642.1.13.104.2. 7.2.727879_[id number] [facility] 2023-07-13 17:15:44 zz4GJ/DFJm5dPUAOwWH2 reZ4J0rj/UB6 fEEmaij4Nkwunlezcy3TjiKtACE1NeBC 0412-30-49Q41:15:44 Sent pt Playrollhart message with copied section of consult for PT and encouraging her to f/u PT for plan of care for PT on her hands. 78069-2Kvcztdfnd encounter AhuaSU1073-10-75D73:16:54Telepho ne encounter NoteTXT1.2.840.959375.1.13.104.2 .7.2.458232|8335314844NGIokcvefq e for patient trlt47009-4PiieMB170781705Mmgyoj Phillips [address] PcgpNxrewvsphPgpzhkaxpYLOG552473 2640YUUPBRFRDSSBSVMECOEPPG5106-7 :16:541.2.840.817160.1.72 .3.15|1.2.840.843212.1.13.104.2. 7.2.727879_[id number] Graciela Humphrey [facility] 2023-07-13 10:09:44 FmlQndf+2xq7BkN/fkgS NOlGrp7acqVp T4nhZh9hYiHcU+sDP6Mm+s2djClHdlhe 3092-97-59W04:09:44 Chepe Reilly is a 67 year old femalePatient calling stating the provider ordered PT for her, however, PT seemed to work primarily with her feet. Patient states she needs the therapy for her hand and wants to ensure that's what she's being referred to PT for. Please advise. 23464-5Iqsywrvcu encounter ShthFL7692-46-45Q97:11:22Telepho ne encounter NoteTXT1.2.840.877196.1.13.104.2 .7.2.271136|3994177914ZUHujdoxjw e for patient gvgd42244-1KcyfEM398387043Qslsks a S [address] 3695ZVNFTLNBZMQOMAJXGEILDQ6276-3 14T10:11:221.2.840.112509.1.72 .3.15|1.2.840.562607.1.13.104.2. 7.2.727879_[id number] Helen Barrera Emmanuel [facility] 2023-07-01 11:27:42 WaC8+lkM8YynS3aUObxD OBKAt4qdrplQ IWIU9KUMtW2BXVaPdoWvUWKH44SrHxoD 4180-93-96D53:27:42 Unable to reach pt at Contact Information [phone] Zepeda home number [phone] signed by Elio Lange at 07/01/2023 11:30 AM QTX71530-9Eftijludr encounter MreoRP0173-25-70U30:30:13Telepho ne encounter NoteTXT1.2.840.287166.1.13.104.2 .7.2.727714|4443879308KVSuvkrsac e for patient tfuf35219-5VmzuDM571256279Dlhe L Simpson[address] StreetTXTX[address] 9055PUULLTIBKTUCXESQYOHPNC0570-3 07-01T11:30:131.2.840.013881.1.72 .3.15|1.2.840.821844.1.13.104.2. 7.2.727879_[id number] Elio Lange [facility] 2023-06-30 09:00:00 fsYjlWR4RUG9P8b9F+pn BAuNJXNGM+a4 JwRrHs4HLFDfidkuh6TzsNQ00xj4J96A 5375-29-97M44:00:00 Images from the original note were not included.Venipuncture collection performed by clean technique on the left anticubitus. Total of 1 attempts were made. Slight pressure and a bandage/dressing were applied to the site(s). The patient experienced no complications. The following specimens were processed according to instructions and sent to [facility] laboratories per lab order on 06/30/2023: LT BLUE SST RED LAV 1 PPT DK GREEN (LiHep) DK GREEN (SodH) HENLEY DK BLUE (K2) DK BLUE (S) ACD Blood Culture NIPT/NTD 02539-8Teyax BmywMU6412-80-96P94:16:13Nurse NoteTXT1.2.840.003991.1.13.104.2 .7.2.060441|[id number] e for patient eyto49448-4Xrywp YxemYW338210167Fbxx [address] BvgnPahvrwucoVnveyvpmaBPGB824568 1681DKKVSTEKKUZGGHZECFNJDY2306-0 3:16:131.2.840.296698.1.72 .3.15|1.2.840.874801.1.13.104.2. 7.2.727879_[id number] Dee Burnett [facility] 2023-06-24 11:49:44 IyRzEZKNgZ3qdJXoB7OI DOpMR8zRTsOc mtdbVBOP1IXuRcliLNqsrong7T2bNVOx 3160-05-68A86:49:44 Requested Prescriptions Signed Prescriptions Disp Refills DULoxetine 60 mg capsule 60 capsule 0 Sig: TAKE 1 CAPSULE BY MOUTH IN THE MORNING AND IN THE EVENING Authorizing Provider: HELEN BRADSHAW Ordering User: GRACIELA HUMPHREY Pharmacy requested 90 day supply. I only refilled it for 30 days d/t pt having f/u appt 07/03 and I was unsure if prescription would remain the same. 98269-2Jqswfimzu encounter VomfEZ8387-19-90B16:01:44Telepho ne encounter NoteTXT1.2.840.792162.1.13.104.2 .7.2.269957|6432075065RVLcplkqcz e for patient [address] HnqdBmohjxmmlHszdwdpueBENZ350289 5523XNDVCZFKNPOYFTLZUVIDPU4547-8 :01:441.2.840.160968.1.72 .3.15|1.2.840.997275.1.13.104.2. 7.2.727879_[id number] [facility]"
[2024-02-03 19:10] LABS: Albumin 3.4 g/dL (3.4-5.0); Albumin/Globulin Ratio 0.7 (1.1-1.8); Anion Gap 10.9 mEq/L (5.0-15.0); Bilirubin Total 0.6 mg/dL (0.2-1.0); Globulin 4.9 g/dL (2.3-3.5); Protein, Total 8.3 g/dL (6.4-8.2); Troponin High Sensitivity 48.6 pg/mL (<58.9)
[2024-02-03 19:16] LABS: Absolute Basophils 0.1 K/uL (0-0.5); Absolute Eosinophils 0.1 K/uL (0-0.5); Absolute Lymphocytes (CBC) 2.6 K/uL (0.7-4.9); Absolute Monocytes 0.3 K/uL (0.1-1.3); Absolute Neutrophil 2.8 K/uL (1.8-8.0); Basophils % 1.8 % (0-1.3); Hematocrit 41.4 % (36.0-45.0); Hemoglobin 13.4 g/dL (12.0-15.0); MCH 29.4 pg (27.0-35.0); MCHC 32.3 g/dL (32.0-36.0); MCV 90.9 fL (80-100); MPV 8.8 fL (7.6-11.3); Monocytes % 5.8 % (3.3-12.3); Neutrophils % 47.4 % (41.7-73.7); Nucleated Red Blood Cells % 0.2 % (0-0); Platelets 242 thou/uL (152-406); RBC Red Blood Cell Count 4.55 M/uL (3.86-4.86); Red Cell Distribution Width 14.7 % (12.1-15.2)
[2024-02-03 19:18] LABS: Potassium 2.9 mEq/L (3.5-5.1)
[2024-02-03 19:21] LABS: PT Prothrombin Time 12.3 SECONDS (9.5-12.5); PTT, Activated Partial Thromb 30.2 SECONDS (24.3-36.9); Protime INR 1.12
[2024-02-03 19:26] LABS: SARS-CoV-2 Antigen Rapid Res Negative (Negative)
[2024-02-03] MEDS ORDERED: FENTANYL CITR 100 MCG/2 ML ONE (20:10)
[2024-02-03] MEDS ORDERED: NA CHLORIDE 0.9% 100 ML ONE (20:11)
[2024-02-03] MEDS ORDERED: CEFEPIME 1 GM/VIAL ONE (20:11)
[2024-02-03 20:25] LABS: Specific Gravity 1.011 (1.005-1.030); Urine Bacteria <20 /HPF (<20); Urine Bilirubin NEGATIVE (Negative); Urine Blood 1+ (Negative); Urine Clarity Extremely Turbid (Clear); Urine Color Light-Yellow (Yellow); Urine Glucose NEGATIVE (Negative); Urine Mucus 2+ /HPF (None Seen); Urine Protein TRACE (Negative); Urine Urobilinogen Normal (Normal); Urine pH 6.5 (5.0-7.0)
--- NOTE | 2024-02-03 20:57 | RAD REPORT ---
EXAM DESCRIPTION: CARLOSLissy Single View02/03/2024 7:12 pm CLINICAL HISTORY: Chest pain COMPARISON: November 2023 FINDINGS: Right mastectomy with implant. The lungs appear clear of acute infiltrate. The heart is normal size IMPRESSION: No acute abnormalities displayed
--- NOTE | 2024-02-03 20:57 | RAD REPORT ---
EXAM DESCRIPTION: CT - Chest Abdomen Pelvis W Cont - 02/03/2024 8:34 pm CLINICAL HISTORY: Chest and abdominal pain COMPARISON: November 2023 TECHNIQUE: Computed axial tomography of the chest, abdomen and pelvis was obtained. 100 cc Isovue-30 0 was administered intravenously. Oral contrast was not requested. This limits evaluation of bowel. All CT scans are performed using dose optimization technique as appropriate and may include automated exposure control or mA/KV adjustment according to patient size. FINDINGS: Right mastectomy with implant The lungs are clear No mediastinal or hilar lymphadenopathy. No pleural effusion. No pericardial effusion. Cholelithiasis. Gallbladder wall not thickened The Liver, spleen, pancreas, adrenals and kidneys are unremarkable No evidence of diverticulitis. Normal appendix Postsurgical changes lumbar spine. No change in the appearance of a mild to moderate compression defo rmity L1 vertebral body. 4.1 centimeter mass abuts the right anterior aspect of the uterus IMPRESSION: Cholelithiasis without evidence of cholecystitis 4.1 centimeter mass abuts the right anterior aspect of the uterus. This may represent a subserosal fi broid or adnexal mass. Pelvic ultrasound recommended
--- NOTE | 2024-02-03 21:50 | ER ---
Nurse's Notes [facility] Name: Mona Reilly Age: 68 yrs Sex: Female : 1955 Arrival Date: 02/03/2024 Time: 18:13 Bed 7 Private MD: Diagnosis: Unspecified atrial fibrillation;New onset atrial fibrillation, generalized weakness, dehydration, hypokalemia, near syncope, Presentation: 02/02 18:14 Chief complaint: EMS states: they were toned put for dehydration. pt reportedly has kc6 been in the sun for several hours at work. pt was found in her truck with the AC on but diaphoretic. Coronavirus screen: At this time, the client does not indicate any symptoms associated with coronavirus-19. Ebola Screen: No symptoms or risks identified at this time. Initial Sepsis Screen: Does the patient meet any 2 criteria? No. Patient's initial sepsis screen is negative. Does the patient have a suspected source of infection? No. Patient's initial sepsis screen is negative. Risk Assessment: Do you want to hurt yourself or someone else? Patient reports no desire to harm self or others. Onset of symptoms was February 03, 2024. 18:14 Method Of Arrival: EMS: [facility] kc6 18:14 Acuity: JUAN 2 kc6 Triage Assessment: 18:16 General: Appears in no apparent distress. uncomfortable, well groomed, well developed, kc6 Behavior is calm, cooperative, appropriate for age. Pain: Complains of pain in back. EENT: No signs and/or symptoms were reported regarding the EENT system. Neuro: Level of Consciousness is awake, alert, obeys commands, Oriented to person, place, time, situation, Appropriate for age. Cardiovascular: Denies chest pain, Heart tones S1 S2 present Capillary refill < 3 seconds. Respiratory: Reports shortness of breath Airway is patent Trachea midline Respiratory effort is even, unlabored, Respiratory pattern is regular, symmetrical. GI: No signs and/or symptoms were reported involving the gastrointestinal system. : No signs and/or symptoms were reported regarding the genitourinary system. Derm: No signs and/or symptoms reported regarding the dermatologic system. Skin is intact, is healthy with good turgor, Skin is diaphoretic, Skin is normal, Skin temperature is warm. Historical: - Allergies: 18:16 No Known Allergies; kc6 - PMHx: 18:16 breast cancer; kc6 - PSHx: 18:16 mastectomy; kc6 - Immunization history:: Adult Immunizations unknown. - Social history:: Smoking status: Patient reports the use of cigarette tobacco products, smokes one-half pack cigarettes per day. - Family history:: not pertinent. - Hospitalizations: : No recent hospitalization is reported. Screenin:18 [facility] ED Fall Risk Assessment (Adult) History of falling in the last 3 months, kc6 including since admission No falls in past 3 months (0 pts) Confusion or Disorientation No (0 pts) Intoxicated or Sedated No (0 pts) Impaired Gait No (0 pts) Mobility Assist Device Used No (0 pt) Altered Elimination No (0 pt) Score/Fall Risk Level 0 - 2 = Low Risk. Abuse screen: Denies threats or abuse. Denies injuries from another. Nutritional screening: No deficits noted. Tuberculosis screening: No symptoms or risk factors identified. Assessment: 18:18 Reassessment: please see tri[facility] 19:00 Reassessment: Patient appears in no apparent distress at this time. No changes from 6 previously documented assessment. Patient and/or family updated on plan of care and expected duration. Pain level reassessed. Patient is alert, oriented x 3, equal unlabored respirations, skin warm/dry/pink. 03 12:55 Reassessment: Unsuccessful attempt to call report at this time. Room dirty, nurse Mallory galloway will call back for report when room is ready. 14:58 Reassessment: Unsuccessful attempt to call report at this time. "Not ready" Charge nj1 nurse notified. Vital Signs: 03 18:14 BP 86 / 51; Pulse 89; Resp 16 S; Pulse Ox 96% on R/A; Weight 81.65 kg (R); Height 5 ft. kc6 6 in. ; 18:46 BP 93 / 61; Pulse 78; Resp 19; Pulse Ox 97% ; ko1 19:37 BP 100 / 81; Pulse 101; Resp 23; Pulse Ox 98% on R/A; rv 20:57 BP 110 / 93; Pulse 75; Resp 16; Pulse Ox 96% on R/A; rv 18:14 Body Mass Index 29.05 (81.65 kg, 167.64 cm) [facility] Vitals: 18:14 Cardiac Rhythm Assessment Atrial fibrillation. kc6 NIH Stroke Scale Scores: 21:47 NIHSS Score: 0 sp4 ED Course: 18:14 Patient arrived in ED. kc6 18:14 Julio Cesar Thurman MD is Attending Physician. rn 18:16 Triage completed. kc6 18:16 Arm band placed on. kc6 18:17 Maintain EMS IV. Dressing intact. Good blood return noted. Site clean \\T\\ dry. Gauge \\T\\ caleb 6 site: 18G LAC. Patient maintains SpO2 saturation greater than 95% on room air. 18:18 Patient has correct armband on for positive identification. Placed in gown. Bed in low kc6 position. Call light in reach. Side rails up X2. Client placed on continuous cardiac and pulse oximetry monitoring. NIBP monitoring applied. library monitor on. 19:00 Report given to DIANE Stark and DIANE Magana. kc6 19:05 SARS RAPID Sent. kc6 19:05 Flu Sent. kc6 19:05 Inserted saline lock: 24 gauge in left hand, using aseptic technique. Blood collected. kc6 19:14 Chest Single View XRAY In Process Unspecified. EDMS 19:27 Izzy Hemphill RN is Primary Nurse. jw7 20:35 CT Chest, Abdomen, Pelvis - W/Contrast In Process Unspecified. EDMS 21:30 Attending Physician role handed off by Julio Cesar Thurman MD sp4 21:30 Abisai Gay MD is Attending Physician. sp4 21:49 Iraj Laurent MD is Hospitalizing Provider. sp4 03/07 00:57 EKG done, by ED staff, reviewed by Abisai Gay MD. jw7 03:04 No provider procedures requiring assistance completed. Patient admitted, IV remains in rv place. Administered Medications: 02/02 19:05 Drug: NS 0.9% IV (20 ml/kg) 20 ml/kg IV at 1 bolus once Route: IV; Rate: 1 bolus; Site: kc6 left antecubital; 19:43 Not Given (Duplicate Order): vagbvhalbd49 mg Sub-Q once rn 20:15 Drug: fentaNYL (PF) IVP 25 mcg IVP once Route: IVP; Site: left antecubital; rv 20:40 Drug: Cefepime IVPB 1 grams IVPB at 200 ml/hr once over 30 mins; (mix in NS 100 mL) rv Route: IVPB; Rate: 200 ml/hr; Infused Over: 30 mins; Site: left antecubital; 22:08 Drug: Enola PO 10 mg-325 mg 1 tabs PO once Route: PO; rv 22:08 Drug: Cyclobenzaprine PO 10 mg PO once Route: PO; rv 22:08 Drug: Ondansetron PO 4 mg PO once Route: PO; rv 22:08 Drug: Enoxaparin Sub-Q 80 mg Sub-Q once Route: Sub-Q; Site: abdomen; rv 22:08 Drug: D5-1/2 NS with KCl IV 20 mEq/L 1000 ml IV at 100 ml/hr continuous Route: IV; rv Rate: 100 ml/hr; Site: right antecubital; 22:08 Drug: Potassium Chloride PO 40 mEq PO once Route: PO; rv Medication: 02/03 03:04 VIS not applicable for this client. rv Outcome: 02/02 21:49 Decision to Hospitalize by Provider. sp4 02/03 03:04 Admitted to ER Hold. Please see [facility] for further documentation. rv Condition: good Instructed on the need for admit, 16:20 Admitted to Tele accompanied by tech, room 414, Report called to Mallory CONTRERAS nj1 16:20 Condition: stable 16:40 Patient left the ED. kc6 NIH Stroke Scale - NIH Stroke Score Date: 02/03/2024 Time: 21:47 Total Score = 0 10. Dysarthria (speech clarity - read or repeat words) - 0(Normal) 11. Extinction and Inattention (visual/tactile/auditory/spatial/personal) - 0(No abnormality) 1a. Level of Consciousness (LOC) - 0(Alert) 1b. Level of Consciousness (LOC) (Month \\T\\ Age) - 0(Both) 1c. LOC Commands (Open \\T\\ Closes Eyes/Salvage Inspector) - 0(Both) 2. Best Gaze (Lateral Gaze Paresis) - 0(Normal) 3. Visual Field Loss - 0(No visual loss) 4. Facial Palsy - 0(Normal) 5a. Left Arm: Motor (10-second hold) - 0(No drift) 5b. Right Arm: Motor (10-second hold) - 0(No drift) 6a. Left Leg: Motor (5-second hold - always test supine) - 0(No drift) 6b. Right Leg: Motor (5-second hold - always test supine) - 0(No drift) 7. Limb Ataxia (finger/nose \\T\\ heel/lucas - test with eyes open) - 0(Absent) 8. Sensory Loss (pinprick arms/legs/face) - 0(Normal) 9. Best Language: Aphasia (description/naming/reading) - 0(No aphasia) Initials: sp4 Signatures: Dispatcher [employer] EDJulio Cesar Baxter MD MD rn Vicente, Ronaldo RN RN rv Izzy Hemphill RN RN jw7 Belkis Hall RN RN kc6 Racquel Ferreira RN RN ko1 Abisai Gay MD MD sp4 Milla Tian RN RN nj1
--- NOTE | 2024-02-03 21:50 | EDPHYS ---
Physician Documentation [facility] Name: Mona Reilly Age: 68 yrs Sex: Female : 1955 Arrival Date: 02/03/2024 Time: 18:13 Bed 7 Private MD: ED Physician Abisai Gay HPI: 02/02 18:40 This 68 yrs old Black Female presents to ER via EMS with complaints of Irregular Pulse. rn 18:40 The patient presents with a history of irregular heart beat. Onset: The rn symptoms/episode began/occurred today. Duration: The patient or guardian reports a single episode. Modifying factors: The symptoms are aggravated by nothing. The symptoms are alleviated by nothing. Severity of symptoms: At their worst the symptoms were moderate in the emergency department the symptoms are unchanged. The patient has not experienced similar symptoms in the past. The patient has not recently seen a physician. EMS reports patient was at work, outside, when started to feel irregular heartbeat and palpitations associated with generalized weakness and malaise. No syncope. No chest pain or shortness of breath. No abdominal pain. Does report nausea. No history of A-fib or irregular heartbeat.. Historical: - Allergies: 18:16 No Known Allergies; kc6 - PMHx: 18:16 breast cancer; kc6 - PSHx: 18:16 mastectomy; kc6 - Immunization history:: Adult Immunizations unknown. - Social history:: Smoking status: Patient reports the use of cigarette tobacco products, smokes one-half pack cigarettes per day. - Family history:: not pertinent. - Hospitalizations: : No recent hospitalization is reported. ROS: 18:42 Constitutional: Negative for fever, chills, and weight loss, Eyes: Negative for injury, rn pain, redness, and discharge, ENT: Negative for injury, pain, and discharge, Neck: Negative for injury, pain, and swelling, Cardiovascular: Positive for palpitations Respiratory: Negative for shortness of breath Abdomen/GI: Positive for nausea, negative for abdominal pain MS/Extremity: Negative for injury and deformity, Skin: Negative for injury, rash, and discoloration, Neuro: Positive for dizziness and generalized weakness Exam: 18:42 Constitutional: This is a well developed, well nourished patient who is awake, alert, rn slow to respond but answers all questions, diaphoretic Head/Face: Normocephalic, atraumatic. Eyes: Pupils equal round and reactive to light, extra-ocular motions intact. Lids and lashes normal. Conjunctiva and sclera are non-icteric and not injected. Cornea within normal limits. Periorbital areas with no swelling, redness, or edema. ENT: Dry mucous membranes Neck: Trachea midline, no thyromegaly or masses palpated, and no cervical lymphadenopathy. Supple, full range of motion without nuchal rigidity, or vertebral point tenderness. No Meningismus. Cardiovascular: Regular rate, irregular rhythm. No pulse deficits. Respiratory: No increased work of breathing, no retractions or nasal flaring. Abdomen/GI: Soft, non-tender MS/ Extremity: Pulses equal, no cyanosis. Neuro: Awake and alert, GCS 15, oriented to person, place, time, and situation. Cranial nerves II-XII grossly intact. Motor strength 5/5 in all extremities. Sensory grossly intact. 21:48 ECG was reviewed by the Attending Physician. EKG time 1823. Rate is atrial sp4 fibrillation with aberrant complexes prolonged QT, rate 85. Vital Signs: 18:14 BP 86 / 51; Pulse 89; Resp 16 S; Pulse Ox 96% on R/A; Weight 81.65 kg (R); Height 5 ft. kc6 6 in. ; 18:46 BP 93 / 61; Pulse 78; Resp 19; Pulse Ox 97% ; ko1 19:37 BP 100 / 81; Pulse 101; Resp 23; Pulse Ox 98% on R/A; rv 20:57 BP 110 / 93; Pulse 75; Resp 16; Pulse Ox 96% on R/A; rv 18:14 Body Mass Index 29.05 (81.65 kg, 167.64 cm) kc6 NIH Stroke Scale Scores: 21:47 NIHSS Score: 0 sp4 MDM: 18:14 Patient medically screened. rn 20:07 Transition of care: After a detail discussion of the patient's case, care is rn transferred to Abisai Gay MD. 21:34 ED course: EXAM DESCRIPTION: CT - Chest Abdomen Pelvis W Cont - 02/03/2024 8:34 pm sp4 CLINICAL HISTORY: Chest and abdominal pain COMPARISON: November 2023 TECHNIQUE: Computed axial tomography of the chest, abdomen and pelvis was obtained. 100 cc [id number] was administered intravenously. Oral contrast was not requested. This limits evaluation of bowel. All CT scans are performed using dose optimization technique as appropriate and may include automated exposure control or mA/KV adjustment according to patient size. FINDINGS: Right mastectomy with implant The lungs are clear No mediastinal or hilar lymphadenopathy. No pleural effusion. No pericardial effusion. Cholelithiasis. Gallbladder wall not thickened The Liver, spleen, pancreas, adrenals and kidneys are unremarkable No evidence of diverticulitis. Normal appendix Postsurgical changes lumbar spine. No change in the appearance of a mild to moderate compression deformity L1 vertebral body. 4.1 centimeter mass abuts the right anterior aspect of the uterus IMPRESSION: Cholelithiasis without evidence of cholecystitis 4.1 centimeter mass abuts the right anterior aspect of the uterus. This may represent a subserosal fibroid or adnexal mass. Pelvic ultrasound recommended. 21:47 Differential diagnosis: arrythmia, dehydration, stress disorder. Data reviewed: vital sp4 signs, nurses notes, old medical records, lab test result(s), EKG, radiologic studies, CT scan. 21:50 Consideration of Admission/Observation Patient was admitted/placed on observation. sp4 Escalation of care including admission/observation considered. Management of patient was discussed with the following: Hospitalist: Anastasiia ELLSWORTH. ED course: Patient CT has revealed cholelithiasis without cholecystitis, also 4.1 cm mass over the uterus most likely uterine fibroid. Pelvic ultrasound was advised this can be done on outpatient basis. . 02/02 18:15 Order name: Blood Culture Adult (2) rn 02/02 18:15 Order name: CBC with Diff; Complete Time: 19:38 02/02 18:15 Order name: CMP; Complete Time: 19:38 02/02 18:15 Order name: Lactate w/ 2H reflex if indic.; Complete Time: 19:42 02/02 18:15 Order name: Protime (+inr); Complete Time: 19:38 rn 02/02 18:15 Order name: Ptt, Activated; Complete Time: 19:38 rn 02/02 18:15 Order name: Urinalysis w/ reflexes; Complete Time: 21:30 rn 02/02 18:15 Order name: Troponin High Sensitivity; Complete Time: 19:38 02/02 18:15 Order name: BNP; Complete Time: 19:38 rn 02/02 18:15 Order name: Flu; Complete Time: 19:42 rn 02/02 18:15 Order name: SARS RAPID; Complete Time: 19:38 rn 02/02 23:09 Order name: CBC with Automated Diff EDMS 02/02 23:09 Order name: CBC with Automated Diff EDMS 02/02 23:09 Order name: CBC with Automated Diff EDMS 02/02 23:09 Order name: CBC with Automated Diff EDMS 02/02 23:09 Order name: Comprehensive Metabolic Panel EDMS 02/02 23:09 Order name: Comprehensive Metabolic Panel EDMS 02/02 23:09 Order name: Comprehensive Metabolic Panel EDMS 02/02 23:09 Order name: Comprehensive Metabolic Panel EDMS 02/02 23:09 Order name: Lipid Profile EDMS 02/02 23:09 Order name: Lipid Profile EDMS 02/02 23:09 Order name: Magnesium EDMS 02/02 23:09 Order name: Magnesium EDMS 02/02 23:09 Order name: Magnesium EDMS 02/02 23:09 Order name: Magnesium EDMS 02/02 23:09 Order name: Phosphorus EDMS / 23:09 Order name: Phosphorus EDMS 02/02 23:09 Order name: Phosphorus EDMS 02/02 23:09 Order name: Phosphorus EDMS / 23:09 Order name: Troponin High Sensitivity EDMS / 23:09 Order name: Troponin High Sensitivity EDMS 02/02 23:09 Order name: Troponin High Sensitivity EDMS / 23:09 Order name: Troponin High Sensitivity EDMS / 01:36 Order name: Lactate Sepsis 2 HR Follow-up EDMS 02/03 07:33 Order name: Glucose, Ancillary Testing EDMS 02/03 12:19 Order name: Glucose, Ancillary Testing EDMS 02/02 18:15 Order name: Chest Single View XRAY; Complete Time: 21:30 rn 02/02 19:42 Order name: CT Chest, Abdomen, Pelvis - W/Contrast; Complete Time: 21:30 rn 02/02 23:11 Order name: Echo with Doppler EDMS 02/02 18:15 Order name: EKG; Complete Time: 18:16 rn 02/02 21:46 Order name: EKG; Complete Time: 21:46 sp4 02/02 23:09 Order name: CONS Physician Consult EDMS 02/02 18:15 Order name: Accucheck; Complete Time: 19:04 rn 02/02 18:15 Order name: Cardiac monitoring; Complete Time: 19: rn 02/02 18:15 Order name: EKG - Nurse/Tech; Complete Time: 19: rn 02/02 18:15 Order name: IV Saline Lock - Large Bore; Complete Time: 19:04 rn 02/02 18:15 Order name: Labs collected and sent; Complete Time: 19: rn 02/02 18:15 Order name: O2 Per Protocol; Complete Time: 18:18 rn 02/02 18:15 Order name: O2 Sat Monitoring; Complete Time: 18:18 rn 02/02 18:15 Order name: Vital Signs; Complete Time: 18:18 rn 02/02 21:46 Order name: EKG - Nurse/Tech; Complete Time: 00:56 sp4 EC:48 Rate is 85 beats/min. Rhythm is irregularly irregular, A fib. QRS [place] is Normal. QRS sp4 interval is normal. QT interval is prolonged. No Q waves. T waves are Normal. No ST changes noted. Clinical impression: No evidence of ischemia. Interpreted by me. Administered Medications: 19:05 Drug: NS 0.9% IV (20 ml/kg) 20 ml/kg IV at 1 bolus once Route: IV; Rate: 1 bolus; Site: kc6 left antecubital; 19:43 Not Given (Duplicate Order): [id number] mg Sub-Q once rn 20:15 Drug: fentaNYL (PF) IVP 25 mcg IVP once Route: IVP; Site: left antecubital; rv 20:40 Drug: Cefepime IVPB 1 grams IVPB at 200 ml/hr once over 30 mins; (mix in NS 100 mL) rv Route: IVPB; Rate: 200 ml/hr; Infused Over: 30 mins; Site: left antecubital; 22:08 Drug: [place] PO 10 mg-325 mg 1 tabs PO once Route: PO; rv 22:08 Drug: Cyclobenzaprine PO 10 mg PO once Route: PO; rv 22:08 Drug: Ondansetron PO 4 mg PO once Route: PO; rv 22:08 Drug: Enoxaparin Sub-Q 80 mg Sub-Q once Route: Sub-Q; Site: abdomen; rv 22:08 Drug: D5-1/2 NS with KCl IV 20 mEq/L 1000 ml IV at 100 ml/hr continuous Route: IV; rv Rate: 100 ml/hr; Site: right antecubital; 22:08 Drug: Potassium Chloride PO 40 mEq PO once Route: PO; rv Disposition Summary: 02/03/24 21:49 Hospitalization Ordered Notes: Hospitalization Status: Inpatient Admission sp4 Provider: Iraj Laurent sp4 Condition: Stable sp4 Problem: new sp4 Symptoms: have improved sp4 Bed/Room Type: Standard sp4 Location: Telemetry/MedSurg (Inpatient)(02/04/24 11:50) eb Room Assignment: 414(02/04/24 11:50) eb Diagnosis - Unspecified atrial fibrillation sp4 - New onset atrial fibrillation, generalized weakness, dehydration, hypokalemia, near sp4 syncope, Forms: - Medication Reconciliation Form sp4 - SBAR form sp4 - Leadership Thank You Letter sp4 NIH Stroke Scale - NIH Stroke Score Date: 02/03/2024 Time: 21:47 Total Score = 0 10. Dysarthria (speech clarity - read or repeat words) - 0(Normal) 11. Extinction and Inattention (visual/tactile/auditory/spatial/personal) - 0(No abnormality) 1a. Level of Consciousness (LOC) - 0(Alert) 1b. Level of Consciousness (LOC) (Month \T\ Age) - 0(Both) 1c. LOC Commands (Open \T\ Closes Eyes/Fence Rider) - 0(Both) 2. Best Gaze (Lateral Gaze Paresis) - 0(Normal) 3. Visual Field Loss - 0(No visual loss) 4. Facial Palsy - 0(Normal) 5a. Left Arm: Motor (10-second hold) - 0(No drift) 5b. Right Arm: Motor (10-second hold) - 0(No drift) 6a. Left Leg: Motor (5-second hold - always test supine) - 0(No drift) 6b. Right Leg: Motor (5-second hold - always test supine) - 0(No drift) 7. Limb Ataxia (finger/nose \T\ heel/lucas - test with eyes open) - 0(Absent) 8. Sensory Loss (pinprick arms/legs/face) - 0(Normal) 9. Best Language: Aphasia (description/naming/reading) - 0(No aphasia) Initials: sp4 Signatures: Dispatcher [employer] EDMS Julio Cesar Thurman MD MD rn Botello, Elizabeth eb Vicente, Ronaldo, RN RN Mariana Vergara RN RN vc1 Belkis Hall RN RN kc6 Abisai Gay MD MD sp4 Corrections: (The following items were deleted from the chart) 20:32 18:42 Chest For PE Angio+CT.RAD.BRZ ordered. EDNM EDNM 02/03 02:38 03 21:49 Telemetry/MedSurg (Inpatient) sp4 vc1 02/03 02:38 03 21:49 sp4 vc1 02/03 11:50 02:38 [facility] ER HOLD vc1 eb 11:50 02:38 ERHOLD- vc1 eb
[2024-02-03] MEDS ORDERED: POTASSIUM CL SA 10 MEQ TAB PO ONE (21:54)
[2024-02-03] MEDS ORDERED: HYDROCODONE/APAP 10/325 TAB ONE (21:54)
[2024-02-03] MEDS ORDERED: ONDANSETRON 4 MG (ODT) TAB ONE (21:54)
[2024-02-03] MEDS ORDERED: ENOXAPARIN 80 MG/0.8 ML SQ ONE (21:54)
[2024-02-03] MEDS ORDERED: CYCLOBENZAPRINE 10 MG TAB ONE (21:55)
[2024-02-03] MEDS ORDERED: D5.45NS W/KCL 20MEQ 1,000 ML IV ONE (21:55)
[2024-02-03] MEDS ORDERED: ALPRAZOLAM 0.25 MG TABLET PO PRN (23:01)
--- NOTE | 2024-02-03 23:10 | P.HP ---
Certification for Inpatient Patient admitted to: Inpatient With expected LOS: >2 Midnights Practitioner: I am a practitioner with admitting privileges, knowledge of patient current condition, hospital course, and medical plan of care. Services: Services provided to patient in accordance with Admission requirements found in Title 42 Section 412.3 of the Code of Federal Regulations Patient History Date of Service: 02/04/24 Reason for admission: Abnormal heartbeat, dizziness. History of Present Illness: 68-year-old female patient with medical history significant for neuropathy, hypertension, hyperlipidemia, was evaluated in the ED for episode of dizziness and abnormal heartbeat. She was found to have rapid atrial fibrillation and she was subsequently admitted for inpatient care. Labs showed no significant abnormality of electrolytes and initial troponin was slightly concerning. No issues with chest pain, fever, chills, rigor, nausea, vomiting. Patient just reported that she feels awful and dizzy and weak. UA was overtly concerning for urinary tract infection and she had elevated lactate of 3.7 but this trended to normal range after IV fluid bolus. Allergies No Known Allergies Allergy (Verified 07/19/15 14:31) Home Medications: Duloxetine HCl 1 tab PO BID 12/30/23 Meloxicam 1 tab PO DAILY 12/30/23 Pregabalin [Lyrica*] 2 cap PO TID 12/30/23 Aspirin Chewable [Aspirin Chewable*] 81 mg PO DAILY 30 Days #30 tab.chew 12/31/23 Atorvastatin Calcium [Lipitor] 40 mg PO BEDTIME 30 Days #30 tab 12/31/23 Hydrocodone 5/APAP 325 [[place] 5/325] 1 tab PO Q8H PRN #10 tab 12/31/23 Losartan Potassium 25 mg PO DAILY 30 Days #30 tab 12/31/23 Review of Systems General: Malaise Eyes: Unremarkable ENT: Unremarkable Respiratory: Unremarkable Cardiovascular: Unremarkable Gastrointestinal: Unremarkable Genitourinary: Unremarkable Musculoskeletal: Unremarkable Integumentary: Unremarkable Neurological: Unremarkable Lymphatics: Unremarkable Physical Examination - Physical Exam General: Alert, Oriented x3 HEENT: Atraumatic Neck: Supple Respiratory: Normal air movement Cardiovascular: Regular rate/rhythm, Normal S1 S2 Gastrointestinal: Soft and benign Musculoskeletal: No swelling Neurological: Normal speech, Normal strength at 5/5 x4 extr - Studies Laboratory Data (last 24 hrs) 02/03/24 02/03/24 02/03/24 19:00 19:00 18:41 WBC 5.90 Hgb 13.4 Hct 41.4 Plt Count 242 PT 12.3 INR 1.12 APTT 30.2 Sodium 144 Potassium 2.9 L BUN 13 Creatinine 1.22 H Glucose 101 Total Bilirubin 0.6 AST 68 H ALT 41 Alkaline Phosphatase 78 Microbiology Data (last 24 hrs): 02/03/24 19:00 Nasopharnyx Influenza Type A Antigen Screen - Final 02/03/24 19:00 Nasopharnyx Influenza Type B Antigen Screen - Final Assessment and Plan - Plan Rapid atrial fibrillation: Presently etiology is deemed perhaps infectious/sepsis related. Patient has converted back to normal sinus rhythm. Troponin elevation noted. Will continue on full dose Lovenox and have cardiology evaluate patient. Will obtain echocardiogram. Will continue rate control medication with metoprolol. Urinary tract infection: Will continue empiric antibiotic therapy with Rocephin pending urine culture finalization. Hypertension: We will monitor vital signs per unit protocol and continue outpatient antihypertensive medications. Hyperlipidemia: Continue statin therapy. Neuropathy: Will continue pregabalin. Prophylaxis: Full dose Lovenox for A-fib anticoagulation/ACS treatment. CODE STATUS: Full code. Disposition: We will treat her urinary tract infection and rapid atrial fibrillation and she will be discharged once cleared by cardiology service. - Advance Directives Does patient have a Living Will: No Does patient have a Durable POA for Healthcare: No
[2024-02-03] MEDS: NA CHLORIDE 0.9% 1,000 ML IV SCH (23:45)
[2024-02-04 02:59] LABS: Absolute Lymphocytes (CBC) 1.9 K/uL (0.7-4.9); Absolute Monocytes 0.5 K/uL (0.1-1.3); Absolute Neutrophil 4.7 K/uL (1.8-8.0); Basophils % 0.7 % (0-1.3); Eosinophils % 0.3 % (0-4.4); Hematocrit 32.4 % (36.0-45.0); Hemoglobin 10.8 g/dL (12.0-15.0); Lymphocytes % 26.6 % (15.3-44.8); MCHC 33.3 g/dL (32.0-36.0); MCV 90.1 fL (80-100); MPV 8.4 fL (7.6-11.3); Neutrophils % 65.4 % (41.7-73.7); Nucleated Red Blood Cells % 0.1 % (0-0); Platelets 210 thou/uL (152-406); Red Cell Distribution Width 14.8 % (12.1-15.2)
[2024-02-04 03:08] VITALS: BMI 29.0
[2024-02-04 03:17] LABS: Potassium 3.6 mEq/L (3.5-5.1)
[2024-02-04 03:18] LABS: Albumin 2.5 g/dL (3.4-5.0); Albumin/Globulin Ratio 0.6 (1.1-1.8); Anion Gap 7.6 mEq/L (5.0-15.0); Bilirubin Total 0.4 mg/dL (0.2-1.0); Magnesium 1.8 mg/dL (1.6-2.4); Phosphorus 2.9 mg/dL (2.5-4.9); Protein, Total 6.5 g/dL (6.4-8.2)
[2024-02-04] MEDS ORDERED: ONDANSETRON 4 MG/2 ML VIAL IV PRN (04:00)
[2024-02-04] MEDS: ENOXAPARIN 80 MG/0.8 ML SQ SCH (05:00)
[2024-02-04] MEDS ORDERED: METOPROLOL TAR 25 MG TAB ONE (05:58)
[2024-02-04] MEDS: METOPROLOL TAR 25 MG TAB PO SCH (06:00)
[2024-02-04] MEDS: INSULIN REGULAR (HUMAN) 100 UNIT/ML SQ SCH (07:24)
[2024-02-04] MEDS: INFLUENZA VACCINE (for 6+ mo) 0.5 ML DOSE IMVAC ONE (08:00)
[2024-02-04] MEDS ORDERED: ACETAMINOPHEN 325 MG TABLET ONE (08:36)
[2024-02-04] MEDS ORDERED: NA CHLORIDE 0.9% 1,000 ML ONE (08:36)
[2024-02-04] MEDS: ACETAMINOPHEN 325 MG TABLET PO PRN (08:57)
[2024-02-04] MEDS ORDERED: ENOXAPARIN 40 MG/0.4 ML SQ SCH (09:00)
[2024-02-04] MEDS ORDERED: ENOXAPARIN 80 MG/0.8 ML SQ ONE (09:14)
--- NOTE | 2024-02-04 13:11 | ECHO ---
HEIGHT: 5 ft 6 in WEIGHT: 180 lb 0 oz DATE OF STUDY: 02/04/[address]: Iraj Laurent MD 2-DIMENSIONAL: YES M.MODE: YES DOPPLER: YES COLOR FLOW: YES TDS: NO PORTABLE: YES DEFINITY: NO BUBBLE STUDY: NO DIAGNOSIS: NEW ONSET ATRIAL FIBRILLATION WITH RAPID VENTRICULAR RESPONSE CARDIAC HISTORY: CATHERIZATION: YES SURGERY: NO PROSTHETIC VALVE: NO PACEMAKER: NO MEASUREMENTS (cm) DIASTOLIC (NORMALS) SYSTOLIC (NORMALS) IVSd 1.0 (0.6-1.2) LA Diam 3.0 (1.9-4.0) LVEF 65% LVIDd 3.5 (3.5-5.7) LVIDs 2.3 (2.0-3.5) %FS 35% LVPWd 1.3 (0.6-1.2) Ao Diam 2.4 (2.0-3.7) 2 DIMENSIONAL ASSESSMENT: RIGHT ATRIUM: NORMAL LEFT ATRIUM: NORMAL RIGHT VENTRICLE: NORMAL LEFT VENTRICLE: NORMAL TRICUSPID VALVE: NORMAL MITRAL VALVE: NORMAL PULMONIC VALVE: NORMAL AORTIC VALVE: NORMAL PERICARDIAL EFFUSION: NONE AORTIC ROOT: NORMAL LEFT VENTRICULAR WALL MOTION: NORMAL. DOPPLER/COLOR FLOW: NORMAL. COMMENTS: NORMAL LEFT VENTRICULAR AND DIASTOLIC FUNCTION, EJECTION FRACTION 55-60%. NORMAL WALL MOTION. TECHNOLOGIST: DANAE WILKS
--- NOTE | 2024-02-04 13:22 | P.CNS ---
Date of Consult: 02/04/24 Chief Complaint: Abnormal heartbeat, dizziness. History of Present Illness: patient with PMH of mild CAD presented today with fatigue and not feeling wel, was found to be in AF w RVR, she denies having any cardiac symptoms but report she got heated at work, no chest pain, no palpitations, no syncope. Allergies No Known Allergies Allergy (Verified 07/19/15 14:31) Home Medications: Duloxetine HCl 1 tab PO BID 12/30/23 Meloxicam 1 tab PO DAILY 12/30/23 Pregabalin [Lyrica*] 2 cap PO TID 12/30/23 Aspirin Chewable [Aspirin Chewable*] 81 mg PO DAILY 30 Days #30 tab.chew 12/31/23 Atorvastatin Calcium [Lipitor] 40 mg PO BEDTIME 30 Days #30 tab 12/31/23 Hydrocodone 5/APAP 325 [[place] 5/325] 1 tab PO Q8H PRN #10 tab 12/31/23 Losartan Potassium 25 mg PO DAILY 30 Days #30 tab 12/31/23 - Social History Smoking Status: Unknown if ever smoked Place of Residence: Home Review of Systems 10-point ROS is otherwise unremarkable Physical Examination Temp Pulse Resp BP Pulse Ox 98.6 F 58 16 111/80 93 02/04/24 12:00 02/04/24 12:00 02/04/24 12:00 02/04/24 12:00 02/04/24 12:00 General: Alert HEENT: Atraumatic Neck: Supple Respiratory: Clear to auscultation bilaterally Cardiovascular: No edema, Normal S1 S2 Gastrointestinal: Normal bowel sounds Musculoskeletal: No clubbing Laboratory Data (last 24 hrs) 02/03/24 02/03/24 02/03/24 19:00 19:00 18:41 WBC 5.90 Hgb 13.4 Hct 41.4 Plt Count 242 PT 12.3 INR 1.12 APTT 30.2 Sodium 144 Potassium 2.9 L BUN 13 Creatinine 1.22 H Glucose 101 Total Bilirubin 0.6 AST 68 H ALT 41 Alkaline Phosphatase 78 - Problems (1) Atrial fibrillation Current Visit: Yes Status: Acute Plan: Brief episode of AF that self terminated, patient [id number] score is 2 so will need anticoagulation advise to start Toprol XL 25 mg daily continue Heparin for now but patient will need NOAC on discharge. (2) NSTEMI (non-ST elevated myocardial infarction) Current Visit: Yes Status: Acute Plan: patient denies having any chest pain and patient most recent coronary angiogram shows mild CAD Troponin elevation can be secondary to rhabdo. advise to get CK and CK-MB level and continue to trend troponin until peak then down trending continue heparin drip.
--- NOTE | 2024-02-04 14:13 | EKG ---
Test Date: 2024-02-04 Test Time: 00:57:35 Swedish Masseuse: MELE MEASUREMENT RESULTS: Intervals: Rate: 70 CO: 142 QRSD: 82 QT: 432 QTc: 466 [place]: P: 79 CO: 142 QRS: 78 T: 90 INTERPRETIVE STATEMENTS: Normal sinus rhythm Normal ECG Compared to ECG 02/03/2024 18:23:23 Atrial fibrillation no longer present Ventricular premature complex(es) no longer present Prolonged QT interval no longer present Electronically Signed On 02-04-24 14:12:32 MANAGER ORDER by Caleb Antunez
--- NOTE | 2024-02-04 14:14 | EKG ---
Test Date: 2024-02-03 Test Time: 18:23:23 Tool [employer] Equipment Rental Clerk: TRINA MEASUREMENT RESULTS: Intervals: Rate: 85 [place]: QRSD: 96 QT: 446 QTc: 530 [place]: P: [place]: QRS: 83 T: 70 INTERPRETIVE STATEMENTS: Atrial fibrillation with premature ventricular or aberrantly conducted complexes Prolonged QT Abnormal ECG Compared to ECG 12/29/2023 20:28:56 Ventricular premature complex(es) now present Prolonged QT interval now present Sinus rhythm no longer present Electronically Signed On 02-04-24 14:12:43 [employer] MILL OPERATOR by Caleb Antunez
--- NOTE | 2024-02-04 17:34 | P.PN ---
Subjective Date of Service: 02/04/24 Chief Complaint: Abnormal heartbeat, dizziness. Patient denies any complaint at the moment, She has remained in sinus rhythm since he spontaneously converted. She denies any chest pain. Physical Examination - Vital Signs Temperature: 97.3 F Blood Pressure: 153/68 Pulse: 66 Respirations: 18 Pulse Ox (%): 94 - Studies Laboratory Data (last 24 hrs) 02/03/24 02/03/24 02/03/24 19:00 19:00 18:41 WBC 5.90 Hgb 13.4 Hct 41.4 Plt Count 242 PT 12.3 INR 1.12 APTT 30.2 Sodium 144 Potassium 2.9 L BUN 13 Creatinine 1.22 H Glucose 101 Total Bilirubin 0.6 AST 68 H ALT 41 Alkaline Phosphatase 78 Microbiology Data (last 24 hrs): 02/03/24 19:00 Nasopharnyx Influenza Type A Antigen Screen - Final 02/03/24 19:00 Nasopharnyx Influenza Type B Antigen Screen - Final Assessment And Plan - Plan Physical examination General: Alert and oriented x3, NAD, HEENT: Conjunctiva not pale, anicteric sclera Neck: Supple, no elevated JVD Heart: Heart sounds 1 and 2 normal, regular rhythm, normal rate, no pedal edema Lungs: Clear to auscultation bilaterally, adequate breath sounds bilaterally, no rhonchi or crackles. Abdomen: Soft, nondistended, nontender, normal bowel sounds. Extremities: No tenderness, no deformity Skin: Normal skin turgor, no rash, no nodules or ulcers. Neuro: No focal motor deficit. Normal speech. Psychiatry: Normal mood, no agitation. Assessment and plan A-fib with RVR/NSTEMI Patient spontaneously converted to sinus rhythm and has remained in sinus rhythm Troponin significantly elevated Troponin elevation noted. Patient reports she was working in the heat at the workplace and and feels she might have suffered a heat stroke. Check CK levels. Cardiology input appreciated. Patient had a mild CAD diagnosed by recent coronary angiogram. Continue full dose Lovenox Echocardiogram shows normal EF. Continue metoprolol. Hypotension Likely related to rapid A-fib. Blood pressure improved and patient is currently hypertensive. Hypertension. Currently on metoprolol. Monitor and resume home antihypertensives for sustained hypertension. Hyperlipidemia Continue home statin therapy. Peripheral Neuropathy Resume home medications. DVT Prophylaxis: Full dose Lovenox. CODE STATUS: Full code.
[2024-02-04] MEDS ORDERED: HOME MED 1 EA UNK (Duloxetine Hcl [Duloxetine Hcl] 60 MG Capsule.Dr) PO SCH (21:00)
[2024-02-04] MEDS: DULOXETINE 30 MG CAP PO SCH (22:47)
[2024-02-04] MEDS: ATORVASTATIN 40 MG TAB PO SCH (22:47)
[2024-02-04] MEDS: PREGABALIN 150 MG CAP PO SCH (22:47)
[2024-02-05 07:08] LABS: Absolute Basophils 0.1 K/uL (0-0.5); Absolute Eosinophils 0.1 K/uL (0-0.5); Absolute Lymphocytes (CBC) 1.9 K/uL (0.7-4.9); Absolute Monocytes 0.4 K/uL (0.1-1.3); Absolute Neutrophil 2.2 K/uL (1.8-8.0); Basophils % 1.1 % (0-1.3); Eosinophils % 2.4 % (0-4.4); Hematocrit 31.2 % (36.0-45.0); Hemoglobin 10.4 g/dL (12.0-15.0); Lymphocytes % 40.2 % (15.3-44.8); MCH 30.3 pg (27.0-35.0); MCHC 33.3 g/dL (32.0-36.0); MCV 90.8 fL (80-100); MPV 8.7 fL (7.6-11.3); Monocytes % 8.8 % (3.3-12.3); Neutrophils % 47.5 % (41.7-73.7); Nucleated Red Blood Cells % 0.3 % (0-0); Platelets 201 thou/uL (152-406); RBC Red Blood Cell Count 3.44 M/uL (3.86-4.86); Red Cell Distribution Width 14.8 % (12.1-15.2)
[2024-02-05 07:15] LABS: Albumin 2.5 g/dL (3.4-5.0); Albumin/Globulin Ratio 0.6 (1.1-1.8); Anion Gap 6.7 mEq/L (5.0-15.0); Bilirubin Total 0.5 mg/dL (0.2-1.0); Globulin 4.3 g/dL (2.3-3.5); Magnesium 1.9 mg/dL (1.6-2.4); Phosphorus 2.1 mg/dL (2.5-4.9); Potassium 3.7 mEq/L (3.5-5.1); Protein, Total 6.8 g/dL (6.4-8.2)
[2024-02-05] MEDS ORDERED: HOME MED 1 EA UNK (Losartan Potassium [Losartan Potassium] 25 MG Tablet) PO SCH (09:00)
[2024-02-05] MEDS: LOSARTAN POTASSIUM 50 MG TABLET PO SCH (09:21)
[2024-02-05 13:12] VITALS: BP 161/69; TEMP 97.4
--- NOTE | 2024-02-05 15:26 | P.DS ---
Admission Date: 02/03/24 Discharge Date: 02/05/24 Disposition: ROUTINE DISCHARGE Discharge Condition: FAIR Reason for Admission: Abnormal heartbeat, dizziness. Brief History of Present Illness: 68-year-old female patient with medical history significant for neuropathy, hypertension, hyperlipidemia, was evaluated in the ED for episode of dizziness and abnormal heartbeat. She was found to have rapid atrial fibrillation and she was subsequently admitted for inpatient care. Labs showed no significant abnormality of electrolytes and initial troponin was elevated. No reported chest pain, fever, chills, rigor, nausea, vomiting. Patient just reported that she feels awful and dizzy and weak. UA did not show significant evidence of urinary tract infection and she had elevated lactate of 3.7 but this trended to normal range after IV fluid bolus. Patient was hospitalized for further management. Hospital Course: Patient admitted to the medical floor and the following medical problems addressed: A-fib with RVR/NSTEMI Patient spontaneously converted to sinus rhythm and has remained in sinus rhythm Troponin significantly elevated but later trended down. Patient was treated with full dose Lovenox Patient reports she was working in the heat at the workplace and and feels she might have suffered a heat stroke. CK level was not overtly elevated. Seen by cardiology who noted patient had a mild CAD diagnosed by recent coronary angiogram. Medical management recommended. Echocardiogram shows normal EF. Patient seen by cardiology and deemed stable for discharge. Patient is bradycardic with heart rate down to the 50s. She was on on low-dose metoprolol as recommended by cardiology. Patient discharged with low-dose metoprolol and Eliquis. Hypotension Likely related to rapid A-fib. Blood pressure improved and patient is currently hypertensive. Hypertension. Blood pressure fluctuated. Patient is on losartan at home which was resumed for hypertension. Hyperlipidemia Continued home statin therapy. Peripheral Neuropathy Continued home medications. Vital Signs/Physical Exam: Temp Pulse Resp BP Pulse Ox 97.4 F 61 16 161/69 H 93 02/05/24 12:00 02/05/24 12:00 02/05/24 12:00 02/05/24 12:00 02/05/24 12:00 General: Alert, In no apparent distress, Oriented x3 HEENT: Mucous membr. moist/pink Neck: JVD not distended Respiratory: Clear to auscultation bilaterally, Normal air movement Cardiovascular: No edema, Normal S1 S2, Other (Bradycardia) Gastrointestinal: Normal bowel sounds, Soft and benign, Non-distended, No tenderness Musculoskeletal: No swelling Integumentary: No rashes Laboratory Data at Discharge: WBC 4.70 thou/uL (4.3-10.9) 02/05/24 06:36 Hgb 10.4 g/dL (12.0-15.0) L 02/05/24 06:36 Hct 31.2 % (36.0-45.0) L 02/05/24 06:36 Plt Count 201 thou/uL (152-406) 02/05/24 06:36 PT 12.3 SECONDS (9.5-12.5) 02/03/24 19:00 INR 1.12 02/03/24 19:00 APTT 30.2 SECONDS (24.3-36.9) 02/03/24 19:00 Sodium 143 mEq/L (136-145) 02/05/24 06:36 Potassium 3.7 mEq/L (3.5-5.1) 02/05/24 06:36 BUN 14 mg/dL (7-18) 02/05/24 06:36 Creatinine 0.78 mg/dL (0.55-1.02) 02/05/24 06:36 Glucose 92 mg/dL (74-106) 02/05/24 06:36 Phosphorus 2.1 mg/dL (2.5-4.9) L 02/05/24 06:36 Magnesium 1.9 mg/dL (1.6-2.4) 02/05/24 06:36 Total Bilirubin 0.5 mg/dL (0.2-1.0) 02/05/24 06:36 AST 54 U/L (15-37) H 02/05/24 06:36 ALT 33 U/L (13-56) 02/05/24 06:36 Alkaline Phosphatase 58 U/L (45-117) 02/05/24 06:36 Triglycerides 88 mg/dL (<150) 02/04/24 02:44 Cholesterol 126 mg/dL (<200) 02/04/24 02:44 HDL Cholesterol 25 mg/dL (40-60) L 02/04/24 02:44 Cholesterol/HDL Ratio 5.04 02/04/24 02:44 Home Medications: Duloxetine HCl 1 tab PO BID 12/30/23 Pregabalin [Lyrica*] 2 cap PO TID 12/30/23 Aspirin Chewable [Aspirin Chewable*] 81 mg PO DAILY 30 Days #30 tab.chew 12/31/23 Atorvastatin Calcium [Lipitor] 40 mg PO BEDTIME 30 Days #30 tab 12/31/23 Hydrocodone 5/APAP 325 [[place] 5/325*] 1 tab PO Q8H PRN #10 tab 12/31/23 Losartan Potassium 25 mg PO DAILY 30 Days #30 tab 12/31/23 Apixaban [Eliquis] 5 mg PO BID #60 tab 02/05/24 Metoprolol Succinate [Toprol Xl] 25 mg PO DAILY #30 tab 02/05/24 New Medications: Apixaban [Eliquis] 5 mg PO BID #60 tab Metoprolol Succinate [Toprol Xl] 25 mg PO DAILY #30 tab Diet: AHA Activity: Fall precautions Followup: NONE,NONE [Primary Care Provider] - Caleb Antunez MD [ACTIVE - CAN ADMIT] - 1-2 Weeks Time spent managing pt's care (in minutes): 32
[2024-02-05 15:32] VITALS: O2SAT 98
--- NOTE | 2024-02-05 15:57 | P.PN ---
Subjective Date of Service: 02/05/24 Chief Complaint: Abnormal heartbeat, dizziness. Subjective: No new changes Review of Systems 10-point ROS is otherwise unremarkable Physical Examination - Vital Signs Temperature: 97.4 F Blood Pressure: 161/69 Pulse: 61 Respirations: 16 Pulse Ox (%): 93 - Physical Exam General: Alert, Oriented x3 HEENT: Atraumatic Neck: Supple Respiratory: Clear to auscultation bilaterally Cardiovascular: No edema, Normal S1 S2 Gastrointestinal: Normal bowel sounds Assessment And Plan - Current Problems (Diagnosis) (1) Atrial fibrillation Current Visit: Yes Status: Acute Plan: Brief episode of AF that self terminated, patient [id number] score is 2 so will need anticoagulation Continue Toprol XL 25 mg daily Start patient on Eliquis 5 mg po BID. (2) NSTEMI (non-ST elevated myocardial infarction) Current Visit: Yes Status: Acute Plan: patient denies having any chest pain and patient most recent coronary angiogram shows mild CAD Troponin elevation can be secondary to rhabdo. patient troponin trended down.
== END 2024-02-05 16:00 | disposition home or self-care (01) | DRG 281 ==
LOC: ER 18:13 → ERHOLD 23:01 → 4TH 02-04 16:32
PROVIDERS: ADMIT Internal Medicine Nephrology; ATTEND Internal Medicine
DX: I48.91 Unspecified atrial fibrillation (principal); I21.A1 Myocardial infarction type 2; M62.82 Rhabdomyolysis; E86.0 Dehydration; E87.6 Hypokalemia; G62.9 Polyneuropathy, unspecified; E78.5 Hyperlipidemia, unspecified; I10 Essential (primary) hypertension; I25.10 Atherosclerotic heart disease of native coronary artery without angina pectoris; F17.210 Nicotine dependence, cigarettes, uncomplicated; Z85.3 Personal history of malignant neoplasm of breast; Z11.52 Encounter for screening for COVID-19; Z79.82 Long term (current) use of aspirin; Z79.01 Long term (current) use of anticoagulants; Z90.10 Acquired absence of unspecified breast and nipple; Z79.899 Other long term (current) drug therapy
CPT/HCPCS: 36415; 71045; 71260; 74177; 80053; 80061; 81001; 82550; 82947; 83605; 83735; 83880; 84100; 84484; 85025; 85610; 85730; 87040; 87804; 87811; 93005; 93306; 96372; 96374; 96375; 99285; J0692; J3010; J7030; Q0162; Q9967

== ENCOUNTER 2024-11-06 20:18 | Emergency (ER) | payer OTHER ==
--- OUTSIDE RECORDS SUMMARY | 2024-11-06 20:27 | XMS REPORT | Continuity of Care Document ---
Author Name Unknown Address [address] [facility] [address]. [address] [place] [address] [facility] Address [address] [facility]. [address] [place] [address] Care Team Providers Care Urgent Care Nurse Practitioner Name Role Phone Tati Samuel Primary Care Physician [phone] Sabina Leone Attending Clinician Unavail CHARAN Herrera Attending Clinician Unavail CHARAN Herrera Attending Clinician Unavail RAQUEL Andino Attending Clinician UnavailRAQUEL Oliver Attending Clinician UnavailRaquel Oliver DO Attending Clinician [phone] Sloan Todd MD Attending Clinician [phone] PAUL ORTEGA Attending Clinician UnavailPAUL Perez Attending Clinician UnavailPaul Perez MD Attending Clinician [phone] Helen Correa Attending Clinician + [phone] HELEN BRADSHAW Attending Clinician Unavailable TATI ALEXANDER Attending Clinician Unavailable Tati Samuel Attending Clinician +[phone] Tammy Barbosa MD Attending Clinician + [phone] Charan Zepeda MD Attending Clinician MICHELLE PURCELL Attending Clinician MICHELLE Bland Attending Clinician OLLIE Richardson Attending Clinician Unavailab le RADIOLOGY Attending Clinician Unavailable Radiology Attending Clinician Unavailable Tammy Barbosa MD Attending Clinician + [phone] Doctor Unassigned, Jacobus Attending Clinician U TAMMY Rocha Attending Clinician Unavailable Dash ELLSWORTH PhD, Kaylene Olivas Attending Clinician Unavailable Tati Samuel Attending Clinician + [phone] Neurology Attending Clinician Unavailable KRISTINE NORTON Attending Clinician UnavailKristine Smith MD Attending Clinician [phone] TADEO KAHN Attending Clinician BOUCHRA Lynne Attending Clinician Unavailable KAI GARCIA Attending Clinician Unavailable KAI GARCIA Attending Clinician Unavailable Berenice Granados Attending Clinician Michelle Cano Attending Clinician + [phone] Bouchra Gutierrez MD Attending Clinician [phone] Pcp, Patient Does Not Have A Attending Clinician MICHELLE GREWAL Attending Clinician Unavailable Ashlee Coffey PTA Attending Clinician Unavail able Ashlee Harris OT A Attending Clinician Unavail Paul Vivas MD Attending Clinician [phone] Paula CONTRERAS, Mohinder Faustin Attending Clinician U Chirag Trinh Attending Clinician UnavailSavana Ivory Attending Clinician [phone] SAVANA GRACE Attending Clinician Unavailable Silvina Person PT Attending Clinician Unavailyareli barraza , [facility] Infusion Chair Attending Clinician UnavaOllie Duke MD Attending Clinician [phone], [facility] Attending Clinician Unavailable HIEN FELTON Attending Clinician Unavaila ble 7, [facility] Infusion Chair Attending Clinician Alix Rollins PA-C, Belkis Attending Clinician [phone] BELKIS ROLLINS Attending Clinician Unavailabl e 5, [facility] Infusion Chair Attending Clinician Alix Minor MD, Yaneth Attending Clinician [phone] YANETH MINOR Attending Clinician Unavailable 11, [facility] Infusion Chair Attending Clinician Derek silveira 1, [facility] In[facility] Chair Attending Clinician Lavon Kimbrough Attending Clinician + [phone], [facility] Infusion Chair Attending Clinician Alix giron [facility], [facility] Neurology Resident Attending Hubert denise Unavailable LAVON BLAKE Attending Clinician Unavailable LAVON BLAKE Attending Clinician Unavailable TASH JENKINS Attending Clinician Unavailable Tash Naidu Attending Clinician [phone], [facility] Infusion Chair Attending Clinician Alix giron 10, [facility] Infusion Chair Attending Clinician TOBIAS Coughlin Attending Clinician UnavailKEKE Pires Attending Clinician Unavailyareli Barraza MD, Keke Ray Attending Clinician [phone] RamírezIngrid Arizmendi Attending Clinician [phone] Yoshi Sales DO Attending Clinician [phone] SURAJ BACA Attending Clinician Unavailable SURAJ BACA Attending Clinician Unavailable Davis Mueller RN Attending Clinician UnavailLAVON Gould Attending Clinician Unavail able LUZMA HOLT Attending Clinician UnavailLuzma Bunn Attending Clinician [phone] Audrey Miramontes MD Attending Clinician [phone] Shayy Hernandez RN Attending Clinician Unavailable Only, Adc Test Attending Clinician Unavailable Cody Patel MD Attending Clinician [phone] NALINI FINLEY Attending Clinician Nalini Hillman MD Attending Clinician [phone] Pob, [facility] Main Attending Clinician UnavailJEANNINE Reyna Attending Clinician Unavailable Lab, Ang - Db Attending Clinician Unavailable Messi Mandujano S Attending Clinician [phone] MESSI WASHINGTON Attending Clinician Unavailable AZLLUVIA, CHARAN NANCY Admitting Clinician Unavail able DUANE CHARAN NANCY Admitting Clinician Unavail able KAI GARCIA Admitting Clinician Unavailable BELKIS ROLLINS Admitting Clinician UnavailTASH Duggan Admitting Clinician Unavailable KEKE BARRAZA Admitting Clinician UnavailKeke Guidry MD Admitting Clinician [phone] SURAJ BACA Admitting Clinician Unavailable LAVON ERIC Admitting Clinician Unavail able KRISTINE NORTON Admitting Clinician UnavailKristine Smith MD Admitting Clinician [phone] NALINI FINLEY Admitting Clinician TATI Ramirez Admitting Clinician Unavailable Payers Payer Name Policy Type Policy Number Effective Date Expirati on Date Source [facility] TOTAL CARE MEDICARE HMO [id number] 2017 00:00:00 [place] [id number] 2022 00:00:00 MEDICARE PART A \\T\\ B [id number] 2012 00:00:00 Problems Condition Name Condition Details Condition Category Status Onset Date Resolution Date Last Treatment Date Treating Clinician Comments Source Syncope and collapse Syncope and collapse Disease Active 02-18 00:00: 00 [facility] Coronary artery disease involving [place] coronary artery of [place] heart without angina pectoris Coronary artery disease involving [place] coronary artery of [place] heart without angina pectoris Disease Active 02-18 00:00: 00 [facility] Generalize d anxiety disorder Generalize d anxiety disorder Disease Active 2022-11 00:00: 00 [facility] Degenerati on of lumbar interverte bral disc Degenerati on of lumbar interverte bral disc Disease Active 2022-11 00:00: 00 [facility] Chronic pain disorder Chronic pain disorder Disease Active 2022-11 00:00: 00 [facility] Obesity Obesity Disease Active 2022-11 00:00: 00 [facility] Age-relate d osteoporos is without current pathologic al fracture Age-relate d osteoporos is without current pathologic al fracture Disease Active 2022-11 00:00: 00 [facility] At risk for falls At risk for falls Disease Active 2022-11 00:00: 00 [facility] Unspecifie d abnormalit ies of gait and mobility Unspecifie d abnormalit ies of gait and mobility Disease Active 2022-11 00:00: 00 [facility] Spasm of muscle Spasm of muscle Disease Active 07-08 00:00: 00 [facility] 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 Added automatic ally from request for surgery [id number] [facility] Hematemesi s, unspecifie d whether nausea present Hematemesi s, unspecifie d whether nausea present Disease Active 2021-11 00:00: 00 Overview: Formattin g of this note might be different from the original. Added automatic ally from request for surgery [id number] [facility] Family history of colon cancer in father Family history of colon cancer in father Disease Active 2021-11 00:00: 00 Overview: Formattin g of this note might be different from the original. 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 Added automatic ally from request for surgery [id number] [facility] Need for hepatitis C screening test Need for hepatitis C screening test Disease Active 03-19 00:00: 00 [facility] Breast mass, right Breast mass, right Disease Active 03-19 00:00: 00 [facility] Breast pain Breast pain Disease Active 03-19 00:00: 00 [facility] Encounter to establish care Encounter to establish care Disease Active 03-19 00:00: 00 [facility] Thyroid enlarged Thyroid enlarged Disease Active 03-19 00:00: 00 [facility] Encounter to establish care Encounter to establish care Disease Active 03-19 00:00: 00 [facility] Type 2 diabetes mellitus without complicati on Type 2 diabetes mellitus without complicati on Disease Active 12-21 00:00: 00 [facility] Low back pain Low back pain Disease Active 2016-11 00:00: 00 [facility] [id number] Lumbago with sciatica, left side Problem [facility] [id number] Essential hypertensi on Problem [facility] [id number] Paroxysmal a-fib Problem [facility] [id number] Lumbago with sciatica, right side Problem [facility] [id number] HX: breast cancer Problem [facility] [id number] Other chronic pain Problem [facility] [id number] History of right mastectomy Problem [facility] [id number] Mixed hyperlipid emia Problem [facility] Overweight Overweight Problem Co [facility] [id number] Other tobacco product nicotine dependence , uncomplica ni Problem [facility] [id number] Vitamin D deficiency Problem [facility] [id number] Normocytic anemia Problem [facility] [id number] Peripheral polyneurop athy Problem [facility] [id number] Current moderate episode of major depressive disorder without prior episode Problem [facility] Tobacco user Nicotine dependence with current use Problem [facility] [id number] Memory loss Problem [facility] [id number] Mixed stress and urge urinary incontinen ce Problem [facility] Allergies, Adverse Reactions, Alerts Allergy Name Allergy Type Status Severity Reaction(s) Onset Date Inactive Date Treating Clinician Comments Source NO KNOWN ALLERGIE S Drug Class Active [facility] Family History Family Member Diagnosis Comments Start Date Stop Date Sourc e Natural father Cancer Unive [facility] Natural father Diabetes Unive [facility] Natural mother Diabetes Unive [facility] Natural sister Diabetes Unive [facility] Social History Social Habit Start Date Stop Date Quantity Comments Source Sex Assigned At [facility] Gender identity [facility] Alcoholic beverage intake 2024-11-02 00:00:00 2024-11-02 00:00:00 Lifetime non-drinker (finding) [facility] History of Social function 2024-09-26 00:00:00 2024-09-26 00:00:00 [facility] Tobacco use and exposure 2024-04-08 00:00:00 2024-04-08 00:00:00 Smokeless tobacco non-user [facility] Cigarettes smoked current (pack per day) - Reported 2024-04-08 00:00:00 2024-04-08 00:00:00 [facility] Cigarette pack-years 2024-04-08 00:00:00 2024-04-08 00:00:00 [facility] Alcohol intake 2024-02-19 00:00:00 2024-02-19 00:00:00 Lifetime non-drinker (finding) [facility] History of Tobacco Use 1974-11-29 00:00:00 2023-12-30 00:00:00 [facility] Exposure to SARS-CoV-2 (event) 2023-04-19 00:00:00 2023-04-29 13:20:00 Not sure [facility] History SDOH Food Worry 2022-08-07 00:00:00 2022-08-07 00:00:00 1 [facility] History SDOH Food Scarcity 2022-08-07 00:00:00 2022-08-07 00:00:00 1 [facility] History SDOH Transport Med 2022-08-07 00:00:00 2022-08-07 00:00:00 2 [facility] History SDOH Transport Non-Med 2022-08-07 00:00:00 2022-08-07 00:00:00 2 [facility] Smoking Status Start Date Stop Date Source Former Smoker 2024-10-25 00:00:00 2024-10-25 00:00:00 [facility] Smokes tobacco daily 2024-04-08 00:00:00 [facility] Medications Ordered Medication Name Filled Medication Name Start Date Stop Date Current Medication? Ordering Clinician Indication Dosage Frequency Signature (SIG) Comments Components Source ibuprofen (IBU) tablet 600 mg 2023-11 22:45: 00 11-02 22:47 :00 No 600mg 600 mg, Oral, ONCE, 1 dose, On Thu11/02/24 at 1645, [facility] Vitamin D3 125 MCG (5000 UT) Vitamin D3 125 MCG (5000 UT) 2023-11 00:00: 00 No 1{table t} QD Vitamin D3 125 MCG (5000 UT) Tamsulosin HCl 0.4 MG Tamsulosin HCl 0.4 MG 2023-11 00:00: 00 No 1{capsu le} QD Tamsulosin HCl 0.4 MG Atorvastati n Calcium 20 MG Atorvastati n Calcium 20 MG 2023-11 00:00: 00 No 1{table t} QD Atorvastat in Calcium 20 MG Vitamin B12 1000 MCG Vitamin B12 1000 MCG 2023-11 00:00: 00 No 1{table t} QD Vitamin B12 1000 MCG buPROPion HCl ER (XL) 150 MG buPROPion HCl ER (XL) 150 MG 2023-11 00:00: 00 No 1{table t_in_th e_morni ng} QD buPROPion HCl ER (XL) 150 MG triamcinolo ne acetonide (KENALOG) injection 16 mg 2023-11 21:30: 00 10-11 20:27 :00 No [id number] 16mg 16 mg, Intramuscu lar, ONCE, 1 dose, On Thu10/11/24 at 1530, Routine [facility] triamcinolo ne acetonide (KENALOG) injection 16 mg 2023-11 17:00: 00 10-05 04:59 :00 No 16mg [facility] pregabalin 150 mg capsule 2023-11 00:00: 00 Yes [id number] 150mg Take 1 capsule by mouth in the morning and 1 capsule at noon and 1 capsule in the evening. [facility] pregabalin 75 mg capsule 2023-11 00:00: 00 09-26 00:00 :00 No [id number] 150mg Take 2 capsules by mouth in the morning and 2 capsules at noon and 2 capsules in the evening. [facility] Kenalog (Triamcinol one) Kenalog (Triamcinol one) 06-13 00:00: 00 No 40mg [facility] methylPREDN ISolone acetate (DEPO-MEDRO L) 80 mg/mL 80 mg, lidocaine 1% (PF) (XYLOCAINE) 2 mL, bupivacaine (preserv free) 0.5% (SENSORCAIN E MPF) 7 mL 10 mL injection 05-04 22:00: 00 05-04 22:10 :00 No [id number] 80mg Unive rs [facility] methylPREDN ISolone acetate (DEPO-MEDRO L) 80 mg/mL 80 mg, lidocaine 1% (PF) (XYLOCAINE) 2 mL, bupivacaine (preserv free) 0.5% (SENSORCAIN E MPF) 7 mL 10 mL injection 05-04 22:00: 05-04 22:10 :00 No [id number] 80mg Intra-tanya cular, ONCE, 1 dose, On Thu05/04/24 at 1700, 10 mL [facility] acetaminoph en (TYLENOL EXTRA STRENGTH) 500 mg tablet 05-04 00:00: 00 06-04 04:59 :00 No [id number] 1000mg Take 2 tablets by mouth every 8 (eight) hours as needed for Pain for up to 30 days. [facility] cyclobenzap rine 5 mg tablet 04-08 00:00: 00 Yes [id number] 5mg Take 1 tablet by mouth every 12 (twelve) hours as needed for Muscle Spasms. [facility] pregabalin 75 mg capsule 03-25 00:00: 00 09-26 00:00 :00 No [id number] 150mg Take 2 capsules by mouth in the morning and 2 capsules at noon and 2 capsules in the evening. [facility] DULoxetine 60 mg capsule 03-24 00:00: 00 05-23 00:00 :00 No [id number] TAKE 1 CAPSULE BY MOUTH IN THE MORNING AND 1 CAPSULE IN THE EVENING [facility] apixaban 5 mg tablet 02-18 13:25: 16 Yes 5mg Take 1 tablet by mouth in the morning and 1 tablet in the evening. [facility] metoprolol succinate XL 25 mg 24 hr tablet 02-18 13:25: 16 Yes 25mg Take 1 tablet by mouth in the morning. [facility] apixaban 5 mg tablet -14 14:15: 29 Yes 5mg Take 1 tablet by mouth in the morning and 1 tablet in the evening. [facility] metoprolol succinate XL 25 mg 24 hr tablet 02-10 14:15: 29 Yes 25mg Take 1 tablet by mouth in the morning. [facility] atorvastati n 40 mg tablet 02-10 00:00: 00 Yes [id number] 40mg Take 1 tablet by mouth at bedtime. [facility] losartan 25 mg tablet 02-10 00:00: 00 Yes [id number] 25mg Take 1 tablet by mouth in the morning. [facility] letrozole 2.5 mg tablet 01-22 00:00: 00 Yes [id number] 2.5mg Take 1 tablet by mouth daily [facility] ondansetron 4 mg disintegrat ing tablet 01-22 00:00: 00 02-10 00:00 :00 No [id number] 4mg Take 1 tablet by mouth every 8 (eight) hours as needed (take when feeling nausea). [facility] aspirin 81 mg chewable tablet 12-31 00:00: 00 Yes 81mg Take 1 tablet by mouth in the morning. [facility] HYDROcodone -acetaminop hen 5-325 mg tablet 12-31 00:00: 00 05-04 00:00 :00 No 1{tbl} Take 1 tablet by mouth every 8 (eight) hours as needed. [facility] atorvastati n 40 mg tablet 12-31 00:00: 00 02-10 00:00 :00 No 40mg Take 1 tablet by mouth at bedtime. [facility] losartan 25 mg tablet 12-31 00:00: 00 02-10 00:00 :00 No 25mg Take 1 tablet by mouth in the morning. [facility] hydralAZINE (APRESOLINE ) injection 2022-11 18:58: 44 Yes PRN, Starting on Thu11/11/23 at 1258, Until Discontinu ed, STAT, Intra-op [facility] lidocaine 1% (PF) (XYLOCAINE) injection 2022-11 18:22: 33 Yes PRN, Starting on Thu11/11/23 at 1222, Until Discontinu ed, Routine, Intra-op [facility] FENTanyl PF (SUBLIMAZE (PF)) injection 2022-11 18:20: 00 Yes Slow IV Push, PRN, Starting on Thu11/11/23 at 1220, Until Discontinu ed, Routine, Intra-op [facility] midazolam (VERSED) injection 2022-11 18:20: 00 Yes IV Push, PRN, Starting on Thu11/11/23 at 1220, Until Discontinu ed, Routine, Intra-op [facility] pregabalin 75 mg capsule 2022-11 00:00: 00 03-24 00:00 :00 No [id number] 150mg Take 2 capsules by mouth in the morning and 2 capsules at noon and 2 capsules in the evening. [facility] DULoxetine 60 mg capsule 2022-11 00:00: 00 03-24 00:00 :00 No [id number] TAKE 1 CAPSULE BY MOUTH IN THE MORNING AND 1 CAPSULE IN THE EVENING [facility] meloxicam 15 mg tablet 2022-11 00:00: 00 02-10 00:00 :00 No [id number] 15mg Take 1 tablet by mouth every morning. [facility] trastuzumab -qyyp (TRAZIMERA) 480 mg in NaCl 0.9% (NS) 250 mL infusion 2022-11 18:15: 00 10-15 19:20 :00 No [id number] 6mg/kg 480 mg (rounded from 477 mg = 6 mg/kg ?79.5 kg Treatment plan Recorded weight), IV Infusion, ONCE, Administer over 60 Minutes, On Khalida 10/15/23 at 1215, For 1 dose
Sh ould be diluted in 0.9% Sodium Chloride only; DO NOT USE D5W. Diluted solutions may be stored in refrigerat or for up to 24 hours prior to use.
[facility] acetaminoph en (TYLENOL) tablet 650 mg 2022-11 17:45: 00 10-15 17:45 :00 No [id number] 650mg 650 mg, Oral, ONCE, 1 dose, On Thu10/15/23 at 1145, Routine [facility] diphenhydrA MINE (BENADRYL) injection 25 mg 2022-11 17:45: 00 10-15 17:45 :00 No [id number] 25mg 25 mg, Slow IV Push, ONCE, 1 dose, On Thu10/15/23 at 1145, Routine [facility] atropine injection 0.25 mg 2022-11 17:30: 58 10-16 17:29 :58 No [id number] .25mg 0.25 mg, IV Push, PRN, Starting on Thu10/15/23 at 1130, Until Thu10/16/23 at 1129, Routine, Stomach cramping, acute flushing. [facility] albuterol (PROVENTIL) 2.5 mg /3 mL (0.083 %) nebulizer solution 2.5 mg 2022-11 17:30: 58 10-16 17:29 :58 No [id number] 2.5mg 2.5 mg, Inhalation , PRN - SEE INSTRUCTIO NS, Starting on Thu10/15/23 at 1130, Until Thu10/16/23 at 1129, Routine, Shortness of Breath, Wheezing, As needed for chemothera py reactions [facility] methylpredn isolone sod succ (SOLU-MEDRO L) injection 125 mg 2022-11 17:30: 58 10-16 17:29 :58 No [id number] 125mg 125 mg, Slow IV Push, Administer over 3 Minutes, PRN - SEE INSTRUCTIO NS, Starting on Thu10/15/23 at 1130, Until Thu10/16/23 at 1129, Routine, As needed for chemothera py reactions [facility] EPINEPHrine (EPIPEN AUTO-INJECT OR) 0.3 mg/0.3 mL injection 0.3 mg 2023-1 1-16 17:30: 58 10-16 17:29 :58 No [id number] .3mg 0.3 mg, Intramuscu lar, PRN - SEE INSTRUCTIO NS, Starting on Thu10/15/23 at 1130, Until Thu10/16/23 at 1129, Routine, As needed for chemothera py reactions [facility] diphenhydrA MINE (BENADRYL) injection 50 mg 2022-11 17:30: 58 10-16 17:29 :58 No [id number] 50mg 50 mg, Slow IV Push, Administer over 2 Minutes, PRN - SEE INSTRUCTIO NS, Starting on Thu10/15/23 at 1130, Until Thu10/16/23 at 1129, Routine, As needed for chemothera py reactions< br>INDICAT ION: ANAPHYLAXI S [facility] heparin lock flush (HEPARIN LOCKFLUSH(P ORCINE)(PF) ) 100 unit/mL injection 500 Units 2022-11 17:30: 58 10-16 17:29 :58 No [id number] 500U 500 Units, IV Push, PRN, Starting on Thu10/15/23 at 1130, Until Thu10/16/23 at 1129, Routine [facility] MELOXICAM 15 mg tablet 2022-11 00:00: 00 11-09 00:00 :00 No [id number] 15mg TAKE 1 TABLET BY MOUTH EVERY DAY IN THE MORNING [facility] trastuzumab -qyyp (TRAZIMERA) 480 mg in NaCl 0.9% (NS) 250 mL infusion 2022-11 16:30: 00 09-24 18:05 :00 No [id number] 6mg/kg 480 mg (rounded from 477 mg = 6 mg/kg ?79.5 kg Treatment plan Recorded weight), IV Infusion, ONCE, Administer over 60 Minutes, On Khalida 09/24/23 at 1130, For 1 dose
Sh ould be diluted in 0.9% Sodium Chloride only; DO NOT USE D5W. Diluted solutions may be stored in refrigerat or for up to 24 hours prior to use.
[facility] acetaminoph en (TYLENOL) tablet 650 mg 2022-11 16:00: 00 09-24 16:08 :00 No [id number] 650mg 650 mg, Oral, ONCE, 1 dose, On Thu09/24/23 at 1100, Routine [facility] diphenhydrA MINE (BENADRYL) injection 25 mg 2022-11 16:00: 00 09-24 16:08 :00 No [id number] 25mg 25 mg, Slow IV Push, ONCE, 1 dose, On Thu09/24/23 at 1100, Routine [facility] heparin lock flush (HEPARIN LOCKFLUSH(P ORCINE)(PF) ) 100 unit/mL injection 500 Units 2022-11 15:48: 27 09-25 15:47 :27 No [id number] 500U 500 Units, IV Push, PRN, Starting on Thu09/24/23 at 1048, Until Thu09/25/23 at 1047, Routine [facility] gadoteridol (PROHANCE-2 0 mL) injection 0.2 mL/kg 2022-11 14:45: 00 09-15 14:31 :00 No [id number] .2mL/kg 0.2 mL/kg, Intravenou s, ONCE, 1 dose, On Thu09/15/23 at 0945, Routine [facility] trastuzumab -qyyp (TRAZIMERA) 480 mg in NaCl 0.9% (NS) 250 mL infusion 2022-11 16:45: 00 09-03 17:50 :00 No [id number] 6mg/kg 480 mg (rounded from 477 mg = 6 mg/kg ?79.5 kg Treatment plan Recorded weight), IV Infusion, ONCE, Administer over 60 Minutes, On Thu09/03/23 at 1145, For 1 dose
Sh ould be diluted in 0.9% Sodium Chloride only; DO NOT USE D5W. Diluted solutions may be stored in refrigerat or for up to 24 hours prior to use.
[facility] acetaminoph en (TYLENOL) tablet 650 mg 2022-11 16:15: 00 09-03 16:13 :00 No [id number] 650mg 650 mg, Oral, ONCE, 1 dose, On Thu09/03/23 at 1115, Routine [facility] diphenhydrA MINE (BENADRYL) injection 25 mg 2022-11 16:15: 00 09-03 16:18 :00 No [id number] 25mg 25 mg, Slow IV Push, ONCE, 1 dose, On Thu09/03/23 at 1115, Routine [facility] heparin lock flush (HEPARIN LOCKFLUSH(P ORCINE)(PF) ) 100 unit/mL injection 500 Units 2022-11 16:10: 33 09-04 16:09 :33 No [id number] 500U 500 Units, IV Push, PRN, Starting on Thu09/03/23 at 1110, Until Thu09/04/23 at 1109, Routine [facility] DULoxetine 60 mg capsule 2022-11 00:00: 00 11-09 00:00 :00 No [id number] TAKE 1 CAPSULE BY MOUTH IN THE MORNING AND 1 CAPSULE IN THE EVENING [facility] trastuzumab -qyyp (TRAZIMERA) 480 mg in NaCl 0.9% (NS) 250 mL infusion 08-13 17:15: 00 08-13 18:06 :00 No [id number] 6mg/kg 480 mg (rounded from 477 mg = 6 mg/kg ?79.5 kg Treatment plan Recorded weight), IV Infusion, ONCE, Administer over 60 Minutes, On Thu08/13/23 at 1215, For 1 dose
Sh ould be diluted in 0.9% Sodium Chloride only; DO NOT USE D5W. Diluted solutions may be stored in refrigerat or for up to 24 hours prior to use.
[facility] acetaminoph en (TYLENOL) tablet 650 mg 08-13 16:45: 00 08-13 16:52 :00 No [id number] 650mg 650 mg, Oral, ONCE, 1 dose, On Thu08/13/23 at 1145, Routine [facility] diphenhydrA MINE (BENADRYL) injection 25 mg 08-13 16:45: 00 08-13 16:46 :00 No [id number] 25mg 25 mg, Slow IV Push, ONCE, 1 dose, On [place] 08/13/23 at 1145, Routine [facility] heparin lock flush (HEPARIN LOCKFLUSH(P ORCINE)(PF) ) 100 unit/mL injection 500 Units 08-13 16:33: 16 08-14 16:32 :16 No [id number] 500U 500 Units, IV Push, PRN, Starting on [place] 08/13/23 at 1133, Until Thu08/14/23 at 1132, Routine [facility] trastuzumab -qyyp (TRAZIMERA) 480 mg in NaCl 0.9% (NS) 250 mL infusion 07-23 17:00: 00 07-23 17:55 :00 No [id number] 6mg/kg 480 mg (rounded from 477 mg = 6 mg/kg ?79.5 kg Treatment plan Recorded weight), IV Infusion, ONCE, Administer over 60 Minutes, On [place] 07/23/23 at 1200, For 1 dose
Sh ould be diluted in 0.9% Sodium Chloride only; DO NOT USE D5W. Diluted solutions may be stored in refrigerat or for up to 24 hours prior to use.
[facility] acetaminoph en (TYLENOL) tablet 650 mg 07-23 16:30: 00 07-23 16:28 :00 No [id number] 650mg 650 mg, Oral, ONCE, 1 dose, On [place] 07/23/23 at 1130, Routine [facility] diphenhydrA MINE (BENADRYL) injection 25 mg 07-23 16:30: 00 07-23 16:35 :00 No [id number] 25mg 25 mg, Slow IV Push, ONCE, 1 dose, On [place] 07/23/23 at 1130, Routine [facility] heparin lock flush (HEPARIN LOCKFLUSH(P ORCINE)(PF) ) 100 unit/mL injection 500 Units 07-23 16:21: 45 07-24 16:20 :45 No [id number] 500U 500 Units, IV Push, PRN, Starting on Thu07/23/23 at 1121, Until Thu07/24/23 at 1120, Routine [facility] pregabalin 75 mg capsule 07-06 00:00: 00 11-09 00:00 :00 No [id number] 150mg Take 2 capsules by mouth in the morning and 2 capsules at noon and 2 capsules in the evening. [facility] meloxicam 15 mg tablet 07-06 00:00: 00 10-05 00:00 :00 No [id number] 15mg Take 1 tablet by mouth in the morning. [facility] DULoxetine 60 mg capsule 07-06 00:00: 00 09-02 00:00 :00 No [id number] Take 1 capsule by mouth twice daily [facility] trastuzumab -qyyp (TRAZIMERA) 480 mg in NaCl 0.9% (NS) 250 mL infusion 07-02 17:00: 00 07-03 04:59 :00 No [id number] 6mg/kg 480 mg (rounded from 477 mg = 6 mg/kg ?79.5 kg Treatment plan Recorded weight), IV Infusion, ONCE, Administer over 60 Minutes, On Thu07/02/23 at 1200, For 1 dose
Sh ould be diluted in 0.9% Sodium Chloride only; DO NOT USE D5W. Diluted solutions may be stored in refrigerat or for up to 24 hours prior to use.
[facility] acetaminoph en (TYLENOL) tablet 650 mg 07-02 16:30: 00 07-02 16:28 :00 No [id number] 650mg 650 mg, Oral, ONCE, 1 dose, On Thu07/02/23 at 1130, Routine [facility] diphenhydrA MINE (BENADRYL) injection 25 mg 07-02 16:30: 00 07-02 16:31 :00 No [id number] 25mg 25 mg, Slow IV Push, ONCE, 1 dose, On [place] 07/02/23 at 1130, Routine [facility] heparin lock flush (HEPARIN LOCKFLUSH(P ORCINE)(PF) ) 100 unit/mL injection 500 Units 07-02 16:27: 39 07-03 16:26 :39 No [id number] 500U 500 Units, IV Push, PRN, Starting on [place] 07/02/23 at 1127, Until Thu07/03/23 at 1126, Routine [facility] cyclobenzap rine 5 mg tablet 07-01 00:00: 00 02-10 00:00 :00 No [id number] 5mg Take 1 tablet by mouth 2 (two) times daily as needed for Muscle Spasms. [facility] DULoxetine 60 mg capsule 06-24 00:00: 00 07-06 00:00 :00 No [id number] TAKE 1 CAPSULE BY MOUTH IN THE MORNING AND IN THE EVENING [facility] pregabalin 75 mg capsule 06-01 00:00: 00 07-06 00:00 :00 No [id number] 150mg Take 2 capsules by mouth in the morning and 2 capsules at noon and 2 capsules in the evening. [facility] DULoxetine 60 mg capsule 06-01 00:00: 00 06-24 00:00 :00 No [id number] 60mg Take 1 capsule by mouth in the morning and 1 capsule in the evening. [facility] trastuzumab -qyyp (TRAZIMERA) 480 mg in NaCl 0.9% (NS) 250 mL infusion 05-21 17:15: 00 05-21 18:47 :00 No [id number] 6mg/kg 480 mg (rounded from 477 mg = 6 mg/kg ?79.5 kg Treatment plan Recorded weight), IV Infusion, ONCE, Administer over 60 Minutes, On [place] 05/21/23 at 1215, For 1 dose
Sh ould be diluted in 0.9% Sodium Chloride only; DO NOT USE D5W. Diluted solutions may be stored in refrigerat or for up to 24 hours prior to use.
[facility] acetaminoph en (TYLENOL) tablet 650 mg 05-21 16:45: 00 05-21 17:03 :00 No [id number] 650mg 650 mg, Oral, ONCE, 1 dose, On Thu05/21/23 at 1145, Routine [facility] diphenhydrA MINE (BENADRYL) injection 25 mg 05-21 16:45: 00 05-21 17:05 :00 No [id number] 25mg 25 mg, Slow IV Push, ONCE, 1 dose, On Thu05/21/23 at 1145, Routine [facility] heparin lock flush (HEPARIN LOCKFLUSH(P ORCINE)(PF) ) 100 unit/mL injection 500 Units 05-21 16:36: 44 05-22 16:35 :44 No [id number] 500U 500 Units, IV Push, PRN, Starting on Thu05/21/23 at 1136, Until Thu05/22/23 at 1135, Routine [facility] pregabalin (LYRICA) 25 mg capsule 05-21 00:00: 00 06-01 00:00 :00 No [id number] 75mg Take 3 capsules by mouth in the morning and 3 capsules in the evening. [facility] DULoxetine 60 mg capsule 05-21 00:00: 00 06-01 00:00 :00 No [id number] 60mg Take 1 capsule by mouth in the morning. [facility] trastuzumab -qyyp (TRAZIMERA) 480 mg in NaCl 0.9% (NS) 250 mL infusion 04-30 18:15: 00 04-30 18:55 :00 No [id number] 6mg/kg 480 mg (rounded from 477 mg = 6 mg/kg ?79.5 kg Treatment plan Recorded weight), IV Infusion, ONCE, Administer over 60 Minutes, On [place] 04/30/23 at 1315, For 1 dose
Sh ould be diluted in 0.9% Sodium Chloride only; DO NOT USE D5W. Diluted solutions may be stored in refrigerat or for up to 24 hours prior to use.
[facility] acetaminoph en (TYLENOL) tablet 650 mg 04-30 17:45: 00 04-30 17:46 :00 No [id number] 650mg 650 mg, Oral, ONCE, 1 dose, On Thu04/30/23 at 1245, Routine [facility] diphenhydrA MINE (BENADRYL) injection 25 mg 04-30 17:45: 00 04-30 17:46 :00 No [id number] 25mg 25 mg, Slow IV Push, ONCE, 1 dose, On [place] 04/30/23 at 1245, Routine [facility] heparin lock flush (HEPARIN LOCKFLUSH(P ORCINE)(PF) ) 100 unit/mL injection 500 Units 04-30 17:38: 06 05-01 17:37 :06 No [id number] 500U 500 Units, IV Push, PRN, Starting on Thu04/30/23 at 1238, Until Thu05/01/23 at 1237, Routine [facility] pregabalin (LYRICA) 25 mg capsule 04-30 00:00: 00 05-21 00:00 :00 No [id number] 75mg Take 3 capsules by mouth in the morning and 3 capsules in the evening. [facility] trastuzumab -qyyp (TRAZIMERA) 480 mg in NaCl 0.9% (NS) 250 mL infusion 04-09 17:00: 00 04-09 18:33 :00 No [id number] 6mg/kg 480 mg (rounded from 477 mg = 6 mg/kg ?79.5 kg Treatment plan Recorded weight), IV Infusion, ONCE, Administer over 60 Minutes, On [place] 04/09/23 at 1200, For 1 dose
Sh ould be diluted in 0.9% Sodium Chloride only; DO NOT USE D5W. Diluted solutions may be stored in refrigerat or for up to 24 hours prior to use.
[facility] acetaminoph en (TYLENOL) tablet 650 mg 04-09 16:30: 00 04-09 16:47 :00 No [id number] 650mg 650 mg, Oral, ONCE, 1 dose, On Thu04/09/23 at 1130, Routine [facility] diphenhydrA MINE (BENADRYL) injection 25 mg 04-09 16:30: 00 04-09 16:48 :00 No [id number] 25mg 25 mg, Slow IV Push, ONCE, 1 dose, On Thu04/09/23 at 1130, Routine [facility] heparin lock flush (HEPARIN LOCKFLUSH(P ORCINE)(PF) ) 100 unit/mL injection 500 Units 04-09 16:20: 10 04-10 16:19 :10 No [id number] 500U 500 Units, IV Push, PRN, Starting on Thu04/09/23 at 1120, Until Thu04/10/23 at 1119, Routine [facility] trastuzumab -qyyp (TRAZIMERA) 480 mg in NaCl 0.9% (NS) 250 mL infusion 03-19 17:15: 00 03-19 18:30 :00 No [id number] 6mg/kg 480 mg (rounded from 477 mg = 6 mg/kg ?79.5 kg Treatment plan Recorded weight), IV Infusion, ONCE, Administer over 60 Minutes, On Thu03/19/23 at 1215, For 1 dose
Sh ould be diluted in 0.9% Sodium Chloride only; DO NOT USE D5W. Diluted solutions may be stored in refrigerat or for up to 24 hours prior to use.
[facility] acetaminoph en (TYLENOL) tablet 650 mg 03-19 16:45: 00 03-19 16:30 :00 No [id number] 650mg 650 mg, Oral, ONCE, 1 dose, On Thu03/19/23 at 1145, Routine [facility] diphenhydrA MINE (BENADRYL) injection 25 mg 03-19 16:45: 00 03-19 16:30 :00 No [id number] 25mg 25 mg, Slow IV Push, ONCE, 1 dose, On Thu03/19/23 at 1145, Routine [facility] heparin lock flush (HEPARIN LOCKFLUSH(P ORCINE)(PF) ) 100 unit/mL injection 500 Units 03-19 16:30: 50 03-20 16:29 :50 No [id number] 500U 500 Units, IV Push, PRN, Starting on Thu03/19/23 at 1130, Until Thu03/20/23 at 1129, Routine [facility] letrozole 2.5 mg tablet 03-19 00:00: 00 01-22 00:00 :00 No [id number] 2.5mg Take 1 tablet by mouth daily [facility] pregabalin (LYRICA) 25 mg capsule 03-19 00:00: 00 04-30 00:00 :00 No [id number] 50mg Take 2 capsules by mouth in the morning and 2 capsules in the evening. [facility] trastuzumab -qyyp (TRAZIMERA) 640 mg in NaCl 0.9% (NS) 250 mL infusion 02-26 17:00: 00 02-26 18:05 :00 No [id number] 8mg/kg 640 mg (rounded from 636 mg = 8 mg/kg ?79.5 kg Treatment plan Recorded weight), IV Infusion, ONCE, Administer over 60 Minutes, On [place] 02/26/23 at 1200, For 1 dose
Sh ould be diluted in 0.9% Sodium Chloride only; DO NOT USE D5W. Diluted solutions may be stored in refrigerat or for up to 24 hours prior to use.
[facility] acetaminoph en (TYLENOL) tablet 650 mg 02-26 16:30: 00 02-26 16:30 :00 No [id number] 650mg 650 mg, Oral, ONCE, 1 dose, On Thu02/26/23 at 1130, Routine [facility] diphenhydrA MINE (BENADRYL) injection 25 mg 02-26 16:30: 00 02-26 16:30 :00 No [id number] 25mg 25 mg, Slow IV Push, ONCE, 1 dose, On [place] 02/26/23 at 1130, Routine [facility] heparin lock flush (HEPARIN LOCKFLUSH(P ORCINE)(PF) ) 100 unit/mL injection 500 Units 02-26 16:17: 23 02-27 16:16 :23 No [id number] 500U 500 Units, IV Push, PRN, Starting on [place] 02/26/23 at 1117, Until Thu02/27/23 at 1116, Routine [facility] DULoxetine 60 mg capsule 02-12 00:00: 00 05-21 00:00 :00 No [id number] 60mg Take 1 capsule by mouth in the morning. [facility] gabapentin 300 mg capsule 02-05 00:00: 00 03-19 00:00 :00 No [id number] 300mg Take 1 capsule by mouth in the morning and 1 capsule at noon and 1 capsule in the evening. [facility] DULoxetine 30 mg capsule 02-05 00:00: 00 02-26 00:00 :00 No [id number] 30mg Take 1 capsule by mouth in the morning. [facility] lisinopriL 20 mg tablet 02-05 00:00: 00 02-26 00:00 :00 No [id number] 20mg Take 1 tablet by mouth in the morning. [facility] traMADoL (ULTRAM) tablet 50 mg 01-25 02:15: 00 01-25 01:15 :00 No 50mg 50 mg, Oral, ONCE, 1 dose, On 01/24/23 at 2015, Routine [facility] ondansetron (ZOFRAN (PF)) injection 4 mg 01-24 23:15: 00 01-24 23:04 :00 No 4mg 4 mg, Slow IV Push, ONCE, 1 dose, On 01/24/23 at 1715, [facility] morpHINE (4 mg/mL) injection 4 mg 01-24 23:15: 00 01-24 23:02 :00 No 4mg 4 mg, Slow IV Push, ONCE, 1 dose, On 01/24/23 at 1715, STAT [facility] traMADoL 50 mg tablet 01-24 00:00: 00 02-26 00:00 :00 No [id number] 50mg Take 1 tablet by mouth every 6 (six) hours as needed for Pain (scale 7-10). Indication s: acute pain [facility] gabapentin 300 mg capsule 01-14 00:00: 00 02-05 00:00 :00 No [id number] 300mg Take 1 capsule by mouth in the morning and 1 capsule in the evening. [facility] KCL (KLOR-CON M20) tablet 20 mEq 01-07 17:30: 01-07 16:45 :00 No [id number] 20meq 20 mEq, Oral, ONCE, 1 dose, On Thu01/07/23 at 1130, Routine [facility] PACLitaxeL (TAXOL) 128.64 mg in NaCl 0.9% (NS) 250 mL IV infusion 01-07 16:30: 00 01-07 18:01 :00 No [id number] 64mg/m2 128.64 mg (64 mg/m2 ?2.01 m2 Treatment Plan BSA from Recorded weight), IV Infusion, ONCE, Administer over 60 Minutes, On Thu01/07/23 at 1030, For 1 dose
[employer] prior to [employer] [place] [employer]. &nbs p;Administ er through a 0.22 micron in-line filter and nonsorbing administra tion set.
[facility] trastuzumab -qyyp (TRAZIMERA) 170 mg in NaCl 0.9% (NS) 250 mL infusion 01-07 15:30: 00 01-07 16:45 :00 No [id number] 2mg/kg 170 mg (rounded from 170.8 mg = 2 mg/kg ?85.4 kg Treatment plan Recorded weight), IV Infusion, ONCE, Administer over 60 Minutes, On Thu01/07/23 at 0930, For 1 dose
Sh ould be diluted in 0.9% Sodium Chloride only; DO NOT USE D5W. Diluted solutions may be stored in refrigerat or for up to 24 hours prior to use.
[facility] acetaminoph en (TYLENOL) tablet 650 mg 01-07 15:00: 00 01-07 14:59 :00 No [id number] 650mg 650 mg, Oral, ONCE, 1 dose, On Thu01/07/23 at 0900, Routine [facility] famotidine (PEPCID (PF)) injection 20 mg 01-07 15:00: 00 01-07 15:06 :00 No [id number] 20mg 20 mg, Slow IV Push, ONCE, 1 dose, On Thu01/07/23 at 0900, Routine [facility] diphenhydrA MINE (BENADRYL) injection 50 mg 01-07 15:00: 00 01-07 15:00 :00 No [id number] 50mg 50 mg, Slow IV Push, ONCE, 1 dose, On Thu01/07/23 at 0900, Routine [facility] dexamethaso ne sod phos PF injection 10 mg 01-07 15:00: 00 01-07 15:10 :00 No [id number] 10mg 10 mg, Slow IV Push, ONCE, 1 dose, On Thu01/07/23 at 0900, 1 mL [facility] NaCl 0.9% (NS) bolus infusion 500 mL 01-07 15:00: 00 01-07 15:30 :00 No [id number] 500mL at 999 mL/hr, 500 mL, IV Piggyback, ONCE, 1 dose, On Thu01/07/23 at 0900, STAT [facility] heparin lock flush (HEPARIN LOCKFLUSH(P ORCINE)(PF) ) 100 unit/mL injection 500 Units 01-07 14:52: 29 01-08 14:51 :29 No [id number] 500U 500 Units, IV Push, PRN, Starting on Thu01/07/23 at 0852, Until Thu01/08/23 at 0851, Routine [facility] gabapentin 300 mg capsule 01-07 00:00: 00 01-14 00:00 :00 No [id number] 300mg Take 1 capsule by mouth at bedtime. [facility] PACLitaxeL (TAXOL) 160.8 mg in NaCl 0.9% (NS) 250 mL IV infusion 12-31 19:45: 00 12-31 21:01 :00 No [id number] 80mg/m2 160.8 mg (80 mg/m2 ?2.01 m2 Treatment Plan BSA from Recorded weight), IV Infusion, ONCE, Administer over 60 Minutes, On Thu12/31/22 at 1345, For 1 dose
[employer] prior to [employer] [place] [employer]. &nbs p;Administ er through a 0.22 micron in-line filter and nonsorbing administra tion set.
[facility] trastuzumab -qyyp (TRAZIMERA) 170 mg in NaCl 0.9% (NS) 250 mL infusion 12-31 18:45: 00 12-31 20:01 :00 No [id number] 2mg/kg 170 mg (rounded from 170.8 mg = 2 mg/kg ?85.4 kg Treatment plan Recorded weight), IV Infusion, ONCE, Administer over 60 Minutes, On Thu12/31/22 at 1245, For 1 dose
Sh ould be diluted in 0.9% Sodium Chloride only; DO NOT USE D5W. Diluted solutions may be stored in refrigerat or for up to 24 hours prior to use.
[facility] atropine injection 0.25 mg 12-31 18:34: 36 01-01 18:33 :36 No [id number] .25mg 0.25 mg, IV Push, PRN, Starting on Thu12/31/22 at 1234, Until Thu01/01/23 at 1233, Routine, Stomach cramping, acute flushing. [facility] albuterol (PROVENTIL) 2.5 mg /3 mL (0.083 %) nebulizer solution 2.5 mg 12-31 18:34: 36 01-01 18:33 :36 No [id number] 2.5mg 2.5 mg, Inhalation , PRN - SEE INSTRUCTIO NS, Starting on Thu12/31/22 at 1234, Until [place] 01/01/23 at 1233, Routine, Shortness of Breath, Wheezing, As needed for chemothera py reactions [facility] methylpredn isolone sod succ (SOLU-MEDRO L) injection 125 mg 12-31 18:34: 36 01-01 18:33 :36 No [id number] 125mg 125 mg, Slow IV Push, Administer over 3 Minutes, PRN - SEE INSTRUCTIO NS, Starting on Thu12/31/22 at 1234, Until [place] 01/01/23 at 1233, Routine, As needed for chemothera py reactions [facility] EPINEPHrine (EPIPEN AUTO-INJECT OR) 0.3 mg/0.3 mL injection 0.3 mg 12-31 18:34: 36 01-01 18:33 :36 No [id number] .3mg 0.3 mg, Intramuscu lar, PRN - SEE INSTRUCTIO NS, Starting on Thu12/31/22 at 1234, Until [place] 01/01/23 at 1233, Routine, As needed for chemothera py reactions [facility] diphenhydrA MINE (BENADRYL) injection 50 mg 12-31 18:34: 36 01-01 18:33 :36 No [id number] 50mg 50 mg, Slow IV Push, Administer over 2 Minutes, PRN - SEE INSTRUCTIO NS, Starting on Thu12/31/22 at 1234, Until [place] 01/01/23 at 1233, Routine, As needed for chemothera py reactions< br>INDICAT ION: ANAPHYLAXI S [facility] proCHLORper azine (COMPAZINE) tablet 10 mg 12-31 18:34: 36 01-01 18:33 :36 No [id number] 10mg 10 mg, Oral, Q6HPRN, Starting on Thu12/31/22 at 1234, Until Thu01/01/23 at 1233, Routine, Nausea and Vomiting (N/V) [facility] heparin lock flush (HEPARIN LOCKFLUSH(P ORCINE)(PF) ) 100 unit/mL injection 500 Units 12-31 18:34: 36 01-01 18:33 :36 No [id number] 500U 500 Units, IV Push, PRN, Starting on Thu12/31/22 at 1234, Until Thu01/01/23 at 1233, Routine [facility] acetaminoph en (TYLENOL) tablet 650 mg 12-31 18:15: 00 12-31 18:35 :00 No [id number] 650mg 650 mg, Oral, ONCE, 1 dose, On Thu12/31/22 at 1215, Routine [facility] famotidine (PEPCID (PF)) injection 20 mg 12-31 18:15: 00 12-31 18:39 :00 No [id number] 20mg 20 mg, Slow IV Push, ONCE, 1 dose, On Thu12/31/22 at 1215, Routine [facility] diphenhydrA MINE (BENADRYL) injection 50 mg 12-31 18:15: 00 12-31 18:36 :00 No [id number] 50mg 50 mg, Slow IV Push, ONCE, 1 dose, On Thu12/31/22 at 1215, Routine [facility] dexamethaso ne sod phos PF injection 10 mg 12-31 18:15: 00 12-31 18:44 :00 No [id number] 10mg 10 mg, Slow IV Push, ONCE, 1 dose, On Thu12/31/22 at 1215, 1 mL [facility] NaCl 0.9% (NS) bolus infusion 500 mL 12-31 18:15: 00 12-31 21:05 :00 No [id number] 500mL at 999 mL/hr, 500 mL, IV Piggyback, ONCE, 1 dose, On Thu12/31/22 at 1215, STAT [facility] PACLitaxeL (TAXOL) 160.8 mg in NaCl 0.9% (NS) 250 mL IV infusion 12-24 17:45: 00 12-24 19:00 :00 No [id number] 80mg/m2 160.8 mg (80 mg/m2 ?2.01 m2 Treatment Plan BSA from Recorded weight), IV Infusion, ONCE, Administer over 60 Minutes, On Thu12/24/22 at 1145, For 1 dose
[employer] prior to [employer] [place] [employer]. &nbs p;Administ er through a 0.22 micron in-line filter and nonsorbing administra tion set.
[facility] trastuzumab -qyyp (TRAZIMERA) 170 mg in NaCl 0.9% (NS) 250 mL infusion 12-24 16:45: 00 12-24 17:47 :00 No [id number] 2mg/kg 170 mg (rounded from 170.8 mg = 2 mg/kg ?85.4 kg Treatment plan Recorded weight), IV Infusion, ONCE, Administer over 60 Minutes, On Thu12/24/22 at 1045, For 1 dose
Sh ould be diluted in 0.9% Sodium Chloride only; DO NOT USE D5W. Diluted solutions may be stored in refrigerat or for up to 24 hours prior to use.
[facility] acetaminoph en (TYLENOL) tablet 650 mg 12-24 16:15: 00 12-24 16:27 :00 No [id number] 650mg 650 mg, Oral, ONCE, 1 dose, On Thu12/24/22 at 1015, Routine [facility] famotidine (PEPCID (PF)) injection 20 mg 12-24 16:15: 00 12-24 16:31 :00 No [id number] 20mg 20 mg, Slow IV Push, ONCE, 1 dose, On Thu12/24/22 at 1015, Routine [facility] diphenhydrA MINE (BENADRYL) injection 50 mg 12-24 16:15: 00 12-24 16:33 :00 No [id number] 50mg 50 mg, Slow IV Push, ONCE, 1 dose, On Thu12/24/22 at 1015, Routine [facility] dexamethaso ne sod phos PF injection 10 mg 12-24 16:15: 00 12-24 16:28 :00 No [id number] 10mg 10 mg, Slow IV Push, ONCE, 1 dose, On Thu12/24/22 at 1015, 1 mL [facility] NaCl 0.9% (NS) bolus infusion 500 mL 12-24 16:15: 00 12-24 16:57 :00 No [id number] 500mL at 999 mL/hr, 500 mL, IV Piggyback, ONCE, 1 dose, On Thu12/24/22 at 1015, STAT [facility] proCHLORper azine (COMPAZINE) tablet 10 mg 12-24 16:05: 35 12-25 16:04 :35 No [id number] 10mg 10 mg, Oral, Q6HPRN, Starting on Thu12/24/22 at 1005, Until [place] 12/25/22 at 1004, Routine, Nausea and Vomiting (N/V) [facility] heparin lock flush (HEPARIN LOCKFLUSH(P ORCINE)(PF) ) 100 unit/mL injection 500 Units 12-24 16:05: 35 12-25 16:04 :35 No [id number] 500U 500 Units, IV Push, PRN, Starting on Thu12/24/22 at 1005, Until [place] 12/25/22 at 1004, Routine [facility] PACLitaxeL (TAXOL) 160.8 mg in NaCl 0.9% (NS) 250 mL IV infusion 12-17 17:45: 00 12-17 19:35 :00 No [id number] 80mg/m2 160.8 mg (80 mg/m2 ?2.01 m2 Treatment Plan BSA from Recorded weight), IV Infusion, ONCE, Administer over 60 Minutes, On Thu12/17/22 at 1145, For 1 dose
[employer] prior to [employer] [place] [employer]. &nbs p;Administ er through a 0.22 micron in-line filter and nonsorbing administra tion set.
[facility] ondansetron (ZOFRAN (PF)) injection 8 mg 12-17 17:15: 00 12-17 16:55 :00 No [id number] 8mg 8 mg, Slow IV Push, ONCE, 1 dose, On Thu12/17/22 at 1115, Routine [facility] atropine injection 0.25 mg 12-17 17:07: 52 12-18 17:06 :52 No [id number] .25mg 0.25 mg, IV Push, PRN, Starting on Thu12/17/22 at 1107, Until Thu12/18/22 at 1106, Routine, Stomach cramping, acute flushing. [facility] albuterol (PROVENTIL) 2.5 mg /3 mL (0.083 %) nebulizer solution 2.5 mg 12-17 17:07: 52 12-18 17:06 :52 No [id number] 2.5mg 2.5 mg, Inhalation , PRN - SEE INSTRUCTIO NS, Starting on Thu12/17/22 at 1107, Until Thu12/18/22 at 1106, Routine, Shortness of Breath, Wheezing, As needed for chemothera py reactions [facility] methylpredn isolone sod succ (SOLU-MEDRO L) injection 125 mg 12-17 17:07: 52 12-18 17:06 :52 No [id number] 125mg 125 mg, Slow IV Push, Administer over 3 Minutes, PRN - SEE INSTRUCTIO NS, Starting on Thu12/17/22 at 1107, Until Thu12/18/22 at 1106, Routine, As needed for chemothera py reactions [facility] EPINEPHrine (EPIPEN AUTO-INJECT OR) 0.3 mg/0.3 mL injection 0.3 mg 12-17 17:07: 52 12-18 17:06 :52 No [id number] .3mg 0.3 mg, Intramuscu lar, PRN - SEE INSTRUCTIO NS, Starting on Thu12/17/22 at 1107, Until Thu12/18/22 at 1106, Routine, As needed for chemothera py reactions [facility] diphenhydrA MINE (BENADRYL) injection 50 mg 12-17 17:07: 52 12-18 17:06 :52 No [id number] 50mg 50 mg, Slow IV Push, Administer over 2 Minutes, PRN - SEE INSTRUCTIO NS, Starting on Thu12/17/22 at 1107, Until Thu12/18/22 at 1106, Routine, As needed for chemothera py reactions< br>INDICAT ION: ANAPHYLAXI S [facility] trastuzumab -qyyp (TRAZIMERA) 170 mg in NaCl 0.9% (NS) 250 mL infusion 12-17 16:45: 00 12-17 18:30 :00 No [id number] 2mg/kg 170 mg (rounded from 170.8 mg = 2 mg/kg ?85.4 kg Treatment plan Recorded weight), IV Infusion, ONCE, Administer over 60 Minutes, On Thu12/17/22 at 1045, For 1 dose
Sh ould be diluted in 0.9% Sodium Chloride only; DO NOT USE D5W. Diluted solutions may be stored in refrigerat or for up to 24 hours prior to use.
[facility] acetaminoph en (TYLENOL) tablet 650 mg 12-17 16:15: 00 12-17 16:55 :00 No [id number] 650mg 650 mg, Oral, ONCE, 1 dose, On Thu12/17/22 at 1015, Routine [facility] famotidine (PEPCID (PF)) injection 20 mg 12-17 16:15: 00 12-17 16:53 :00 No [id number] 20mg 20 mg, Slow IV Push, ONCE, 1 dose, On Thu12/17/22 at 1015, Routine [facility] diphenhydrA MINE (BENADRYL) injection 50 mg 12-17 16:15: 00 12-17 16:50 :00 No [id number] 50mg 50 mg, Slow IV Push, ONCE, 1 dose, On Thu12/17/22 at 1015, Routine [facility] dexamethaso ne sod phos PF injection 10 mg 12-17 16:15: 00 12-17 16:57 :00 No [id number] 10mg 10 mg, Slow IV Push, ONCE, 1 dose, On Thu12/17/22 at 1015, 1 mL [facility] proCHLORper azine (COMPAZINE) tablet 10 mg 12-17 16:13: 24 12-18 16:12 :24 No [id number] 10mg 10 mg, Oral, Q6HPRN, Starting on Thu12/17/22 at 1013, Until Thu12/18/22 at 1012, Routine, Nausea and Vomiting (N/V) [facility] heparin lock flush (HEPARIN LOCKFLUSH(P ORCINE)(PF) ) 100 unit/mL injection 500 Units 12-17 16:13: 24 12-18 16:12 :24 No [id number] 500U 500 Units, IV Push, PRN, Starting on Thu12/17/22 at 1013, Until Thu12/18/22 at 1012, Routine [facility] ondansetron 4 mg disintegrat ing tablet 12-17 00:00: 00 01-22 00:00 :00 No [id number] 4mg Take 1 tablet by mouth every 8 (eight) hours as needed for Nausea and Vomiting (N/V). [facility] PACLitaxeL (TAXOL) 160.8 mg in NaCl 0.9% (NS) 250 mL IV infusion 12-10 17:00: 00 12-10 18:30 :00 No [id number] 80mg/m2 160.8 mg (80 mg/m2 ?2.01 m2 Treatment Plan BSA from Recorded weight), IV Infusion, ONCE, Administer over 60 Minutes, On Thu12/10/22 at 1100, For 1 dose
[employer] taxanes prior to [place] compounds. &nbs p;Administ er through a 0.22 micron in-line filter and nonsorbing administra tion set.
[facility] trastuzumab -qyyp (TRAZIMERA) 170 mg in NaCl 0.9% (NS) 250 mL infusion 12-10 16:00: 00 12-10 17:28 :00 No [id number] 2mg/kg 170 mg (rounded from 170.8 mg = 2 mg/kg ?85.4 kg Treatment plan Recorded weight), IV Infusion, ONCE, Administer over 60 Minutes, On Thu12/10/22 at 1000, For 1 dose
Sh ould be diluted in 0.9% Sodium Chloride only; DO NOT USE D5W. Diluted solutions may be stored in refrigerat or for up to 24 hours prior to use.
[facility] acetaminoph en (TYLENOL) tablet 650 mg 12-10 15:30: 00 12-10 15:45 :00 No [id number] 650mg 650 mg, Oral, ONCE, 1 dose, On Thu12/10/22 at 0930, Routine [facility] famotidine (PEPCID (PF)) injection 20 mg 12-10 15:30: 00 12-10 15:46 :00 No [id number] 20mg 20 mg, Slow IV Push, ONCE, 1 dose, On Thu12/10/22 at 0930, Routine [facility] diphenhydrA MINE (BENADRYL) injection 50 mg 12-10 15:30: 00 12-10 15:49 :00 No [id number] 50mg 50 mg, Slow IV Push, ONCE, 1 dose, On Thu12/10/22 at 0930, Routine [facility] dexamethaso ne sod phos PF injection 10 mg 12-10 15:30: 00 12-10 15:53 :00 No [id number] 10mg 10 mg, Slow IV Push, ONCE, 1 dose, On Thu12/10/22 at 0930, 1 mL [facility] proCHLORper azine (COMPAZINE) tablet 10 mg 12-10 15:25: 42 12-11 15:24 :42 No [id number] 10mg 10 mg, Oral, Q6HPRN, Starting on Thu12/10/22 at 0925, Until Thu12/11/22 at 0924, Routine, Nausea and Vomiting (N/V) [facility] heparin lock flush (HEPARIN LOCKFLUSH(P ORCINE)(PF) ) 100 unit/mL injection 500 Units 12-10 15:25: 42 12-11 15:24 :42 No [id number] 500U 500 Units, IV Push, PRN, Starting on Thu12/10/22 at 0925, Until Thu12/11/22 at 0924, Routine [facility] PACLitaxeL (TAXOL) 160.8 mg in NaCl 0.9% (NS) 250 mL IV infusion 12-04 18:15: 00 12-04 20:12 :00 No [id number] 80mg/m2 160.8 mg (80 mg/m2 ?2.01 m2 Treatment Plan BSA from Recorded weight), IV Infusion, ONCE, Administer over 60 Minutes, On Thu12/04/22 at 1215, For 1 dose
[employer] prior to [place] compounds. &nbs p;Administ er through a 0.22 micron in-line filter and nonsorbing administra tion set.
[facility] trastuzumab -qyyp (TRAZIMERA) 340 mg in NaCl 0.9% (NS) 250 mL infusion 12-04 17:15: 00 12-04 18:55 :00 No [id number] 4mg/kg 340 mg (rounded from 341.6 mg = 4 mg/kg ?85.4 kg Treatment plan Recorded weight), IV Infusion, ONCE, Administer over 60 Minutes, On Thu12/04/22 at 1115, For 1 dose
Sh ould be diluted in 0.9% Sodium Chloride only; DO NOT USE D5W. Diluted solutions may be stored in refrigerat or for up to 24 hours prior to use.
[facility] acetaminoph en (TYLENOL) tablet 650 mg 12-04 16:45: 00 12-04 16:48 :00 No [id number] 650mg 650 mg, Oral, ONCE, 1 dose, On Khalida 12/04/22 at 1045, Routine [facility] famotidine (PEPCID (PF)) injection 20 mg 12-04 16:45: 00 12-04 16:48 :00 No [id number] 20mg 20 mg, Slow IV Push, ONCE, 1 dose, On Khalida 12/04/22 at 1045, Routine [facility] diphenhydrA MINE (BENADRYL) injection 50 mg 12-04 16:45: 00 12-04 16:58 :00 No [id number] 50mg 50 mg, Slow IV Push, ONCE, 1 dose, On Khalida 12/04/22 at 1045, Routine [facility] dexamethaso ne sod phos PF injection 10 mg 12-04 16:45: 00 12-04 16:52 :00 No [id number] 10mg 10 mg, Slow IV Push, ONCE, 1 dose, On Khalida 12/04/22 at 1045, 1 mL [facility] heparin lock flush (HEPARIN LOCKFLUSH(P ORCINE)(PF) ) 100 unit/mL injection 500 Units 12-04 16:33: 44 12-05 16:32 :44 No [id number] 500U 500 Units, IV Push, PRN, Starting on Thu12/04/22 at 1033, Until Thu12/05/22 at 1032, Routine [facility] lactated ringers IV infusion 500 mL 2021-11 17:30: 00 Yes 500mL at 42 mL/hr, 500 mL, IV Infusion, CONTINUOUS , Starting on Khalida 11/27/22 at 1130, Until Discontinu ed, Routine, PACU [facility] meperidine (DEMEROL) injection 12.5 mg 2021-11 17:28: 53 Yes 12.5mg 12.5 mg, Slow IV Push, PRN, 1 dose, Starting on Khalida 11/27/22 at 1128, Until Discontinu ed, Routine, Shivering, PACU
En ter indication for use: Reduce postoperat guzman shivering< br>hospitality team member approving Restricted medication : GUILLERMO WILKS [facility] ondansetron (ZOFRAN (PF)) injection 4 mg 2021-11 17:28: 53 Yes 4mg 4 mg, Slow IV Push, PRN, 1 dose, Starting on Khalida 11/27/22 at 1128, Until Discontinu ed, Routine, Nausea and Vomiting (N/V), PACU [facility] simethicone (GAS RELIEF (SIMETHICON E)) 40 mg/0.6 mL drops 2021-11 17:05: 00 Yes PRN, Starting on Khalida 11/27/22 at 1105, Until Discontinu ed, Routine, Intra-op [facility] PANTOPRAZOL E 40 mg EC tablet 2021-11 00:00: 00 02-10 00:00 :00 No [id number] 40mg TAKE 1 TABLET BY MOUTH IN THE MORNING AND 1 TABLET IN THE EVENING. [facility] peg-electro lyte soln 236-22.74-6 .74 -5.86 gram solution 2021-11 00:00: 00 01-07 00:00 :00 No [id number] Take as directed before colonoscop y [facility] lidocaine-e pinephrine (XYLOCAINE W/EPINEPHRI NE) 2 %-1:200,000 injection 2021-11 18:22: 00 10-29 18:31 :41 No PRN, Starting on Thu10/29/22 at 1222, Until Discontinu ed, Routine [facility] FENTanyl PF (SUBLIMAZE (PF)) injection 2021-11 18:20: 00 10-29 18:29 :55 No Slow IV Push, PRN, Starting on Thu10/29/22 at 1220, Until Discontinu ed, Routine [facility] midazolam (VERSED) injection 2021-11 18:20: 00 10-29 18:29 :40 No IV Push, PRN, Starting on Thu10/29/22 at 1220, Until Discontinu ed, Routine [facility] ceFAZolin (ANCEF) injection 2021-11 18:10: 00 10-29 18:10 :00 No Slow IV Push, PRN, Starting on Thu10/29/22 at 1210, Until Discontinu ed, [facility] Omeprazole Magnesium 20 mg capsule 2021-11 00:00: 00 11-21 05:59 :00 No [id number] 20mg Take 1 capsule by mouth in the morning for 30 days. [facility] pantoprazol e (PROTONIX) 40 mg EC tablet 2021-11 00:00: 00 11-13 00:00 :00 No [id number] 40mg Take 1 tablet by mouth in the morning and 1 tablet in the evening. [facility] iopamidol (ISOVUE 370-500 mL) injection 100 mL 2021-11 18:30: 00 10-19 18:45 :00 No [id number] 100mL 100 mL, Intravenou s, ONCE, 1 dose, On Thu10/19/22 at 1245, Routine [facility] zolpidem (AMBIEN) 5 mg tablet 2021-11 00:00: 00 02-26 00:00 :00 No [id number] 5mg Take 1 tablet by mouth at bedtime as needed for Insomnia. [facility] PACLitaxeL (TAXOL) 160.8 mg in NaCl 0.9% (NS) 250 mL IV infusion 2021-11 17:15: 00 10-14 19:00 :00 No [id number] 80mg/m2 160.8 mg (80 mg/m2 ?2.01 m2 Treatment Plan BSA from Recorded weight), IV Infusion, ONCE, Administer over 60 Minutes, On Thu10/14/22 at 1115, For 1 dose
[employer] prior to [place] compounds. &nbs p;Administ er through a 0.22 micron in-line filter and nonsorbing administra tion set.
[facility] trastuzumab -qyyp (TRAZIMERA) 170 mg in NaCl 0.9% (NS) 250 mL infusion 2021-11 16:15: 00 10-14 17:35 :00 No [id number] 2mg/kg 170 mg (rounded from 170.8 mg = 2 mg/kg ?85.4 kg Treatment plan Recorded weight), IV Infusion, ONCE, Administer over 60 Minutes, On Thu10/14/22 at 1015, For 1 dose
Sh ould be diluted in 0.9% Sodium Chloride only; DO NOT USE D5W. Diluted solutions may be stored in refrigerat or for up to 24 hours prior to use.
[facility] acetaminoph en (TYLENOL) tablet 650 mg 2021-11 15:45: 00 10-14 15:45 :00 No [id number] 650mg 650 mg, Oral, ONCE, 1 dose, On Thu10/14/22 at 0945, Routine [facility] famotidine (PEPCID (PF)) injection 20 mg 2021-11 15:45: 00 10-14 15:48 :00 No [id number] 20mg 20 mg, Slow IV Push, ONCE, 1 dose, On Thu10/14/22 at 0945, Routine [facility] diphenhydrA MINE (BENADRYL) injection 50 mg 2021-11 15:45: 00 10-14 15:45 :00 No [id number] 50mg 50 mg, Slow IV Push, ONCE, 1 dose, On Thu10/14/22 at 0945, Routine [facility] dexamethaso ne sod phos PF injection 10 mg 2021-11 15:45: 00 10-14 15:50 :00 No [id number] 10mg 10 mg, Slow IV Push, ONCE, 1 dose, On Thu10/14/22 at 0945, 1 mL [facility] atropine injection 0.25 mg 2021-11 15:43: 01 10-15 15:42 :01 No [id number] .25mg 0.25 mg, IV Push, PRN, Starting on Thu10/14/22 at 0943, Until Thu10/15/22 at 0942, Routine, Stomach cramping, acute flushing. [facility] albuterol (PROVENTIL) 2.5 mg /3 mL (0.083 %) nebulizer solution 2.5 mg 2021-11 15:43: 01 10-15 15:42 :01 No [id number] 2.5mg 2.5 mg, Inhalation , PRN - SEE INSTRUCTIO NS, Starting on Thu10/14/22 at 0943, Until Thu10/15/22 at 0942, Routine, Shortness of Breath, Wheezing, As needed for chemothera py reactions [facility] methylpredn isolone sod succ (SOLU-MEDRO L) injection 125 mg 2021-11 15:43: 10-15 15:42 :01 No [id number] 125mg 125 mg, Slow IV Push, Administer over 3 Minutes, PRN - SEE INSTRUCTIO NS, Starting on Thu10/14/22 at 0943, Until Thu10/15/22 at 0942, Routine, As needed for chemothera py reactions [facility] EPINEPHrine (EPIPEN AUTO-INJECT OR) 0.3 mg/0.3 mL injection 0.3 mg 2021-11 15:43: 01 10-15 15:42 :01 No [id number] .3mg 0.3 mg, Intramuscu lar, PRN - SEE INSTRUCTIO NS, Starting on Thu10/14/22 at 0943, Until Thu10/15/22 at 0942, Routine, As needed for chemothera py reactions [facility] diphenhydrA MINE (BENADRYL) injection 50 mg 2021-11 15:43: 01 10-15 15:42 :01 No [id number] 50mg 50 mg, Slow IV Push, Administer over 2 Minutes, PRN - SEE INSTRUCTIO NS, Starting on Thu10/14/22 at 0943, Until Thu10/15/22 at 0942, Routine, As needed for chemothera py reactions< br>INDICAT ION: ANAPHYLAXI S [facility] proCHLORper azine (COMPAZINE) tablet 10 mg 2021-11 15:43: 01 10-15 15:42 :01 No [id number] 10mg 10 mg, Oral, Q6HPRN, Starting on Thu10/14/22 at 0943, Until Thu10/15/22 at 0942, Routine, Nausea and Vomiting (N/V) [facility] heparin lock flush (HEPARIN LOCKFLUSH(P ORCINE)(PF) ) 100 unit/mL injection 500 Units 2021-11 15:43: 01 10-15 15:42 :01 No [id number] 500U 500 Units, IV Push, PRN, Starting on Thu10/14/22 at 0943, Until Thu10/15/22 at 0942, Routine [facility] methylPREDN ISolone acetate (DEPO-MEDRO L) 80 mg/mL 80 mg, lidocaine 1% (PF) (XYLOCAINE) 3 mL, bupivacaine (preserv free) 0.5% (SENSORCAIN E MPF) 0.5 % (5 mg/mL) 6 mL 10 mL injection 2021-11 20:30: 00 10-13 19:42 :00 No [id number] 80mg [facility] methylPREDN ISolone acetate (DEPO-MEDRO L) 80 mg/mL 80 mg, lidocaine 1% (PF) (XYLOCAINE) 3 mL, bupivacaine (preserv free) 0.5% (SENSORCAIN E MPF) 0.5 % (5 mg/mL) 6 mL 10 mL injection 2021-11 20:30: 00 10-13 19:42 :00 No [id number] 80mg Intra-tanya cular, ONCE, 1 dose, On Thu10/13/22 at 1430, 10 mL [facility] alteplase (CATHFLO ACTIVASE) injection 2 mg 2021-11 19:45: 00 10-07 19:23 :00 No [id number] 2mg 2 mg, INTRA-CATH ETER, Administer over 0.5 Hours, ONCE, 1 dose, On Thu10/07/22 at 1345, Routine [facility] PACLitaxeL (TAXOL) 160.8 mg in NaCl 0.9% (NS) 250 mL IV infusion 2021-11 18:45: 00 10-07 20:58 :00 No [id number] 80mg/m2 160.8 mg (80 mg/m2 ?2.01 m2 Treatment Plan BSA from Recorded weight), IV Infusion, ONCE, Administer over 60 Minutes, On Thu10/07/22 at 1245, For 1 dose
[employer] tax[employer] prior to [place] compounds. &nbs p;Administ er through a 0.22 micron in-line filter and nonsorbing administra tion set.
[facility] alteplase (CATHFLO ACTIVASE) injection 2 mg 2021-11 17:00: 00 10-07 16:56 :00 No [id number] 2mg 2 mg, Chest Tube, Administer over 0.5 Hours, ONCE, 1 dose, On Thu10/07/22 at 1100, Routine [facility] trastuzumab -qyyp (TRAZIMERA) 340 mg in NaCl 0.9% (NS) 250 mL infusion 2021-11 16:45: 00 10-07 19:42 :00 No [id number] 4mg/kg 340 mg (rounded from 341.6 mg = 4 mg/kg ?85.4 kg Treatment plan Recorded weight), IV Infusion, ONCE, Administer over 120 Minutes, On Thu10/07/22 at 1045, For 1 dose
Sh ould be diluted in 0.9% Sodium Chloride only; DO NOT USE D5W. Diluted solutions may be stored in refrigerat or for up to 24 hours prior to use.
[facility] heparin lock flush (HEPARIN LOCKFLUSH(P ORCINE)(PF) ) 100 unit/mL injection 500 Units 2021-11 16:25: 47 10-08 16:24 :47 No [id number] 500U 500 Units, IV Push, PRN, Starting on Thu10/07/22 at 1025, Until Thu10/08/22 at 1024, Routine [facility] acetaminoph en (TYLENOL) tablet 650 mg 2021-11 16:15: 00 10-07 16:26 :00 No [id number] 650mg 650 mg, Oral, ONCE, 1 dose, On Thu10/07/22 at 1015, Routine [facility] famotidine (PEPCID (PF)) injection 20 mg 2021-11 16:15: 00 10-07 16:22 :00 No [id number] 20mg 20 mg, Slow IV Push, ONCE, 1 dose, On Thu10/07/22 at 1015, Routine [facility] diphenhydrA MINE (BENADRYL) injection 50 mg 2021-11 16:15: 00 10-07 16:24 :00 No [id number] 50mg 50 mg, Slow IV Push, ONCE, 1 dose, On Thu10/07/22 at 1015, Routine [facility] dexamethaso ne sod phos PF injection 10 mg 2021-11 16:15: 00 10-07 16:28 :00 No [id number] 10mg 10 mg, Slow IV Push, ONCE, 1 dose, On Thu10/07/22 at 1015, 1 mL [facility] naproxen (NAPROSYN) 500 mg tablet 2021-11 00:00: 00 10-29 00:00 :00 No [id number] 500mg Take 1 tablet by mouth in the morning and 1 tablet in the evening. Take with meals. [facility] Dimenhydrin ate (DRAMAMINE) 50 mg Chew 2021-11 00:00: 00 09-24 04:59 :00 No [id number] 50mg Take 50 mg by mouth at bedtime for 14 days. [facility] HYDROcodone -acetaminop hen 2.5-325 mg Tab 2021-11 00:00: 00 09-17 04:59 :00 No [id number] 1{tbl} Take 1 tablet by mouth 2 (two) times daily for 7 days. Indication s: acute pain [facility] loperamide 2 mg capsule 2021-11 0-05 00:00: 00 02-26 00:00 :00 No [id number] 2mg Take 1 capsule by mouth every 4 (four) hours as needed for Diarrhea. [facility] proCHLORper azine 10 mg tablet 2021-11 0-05 00:00: 00 12-17 00:00 :00 No [id number] 10mg Take 1 tablet by mouth every 6 (six) hours as needed for Nausea and Vomiting (N/V). [facility] proMETHazin e 25 mg suppository 2021-11 0-05 00:00: 00 10-29 00:00 :00 No [id number] 25mg Insert 1 Suppositor y into rectum every 4 (four) hours as needed for Nausea and Vomiting (N/V). [facility] traMADoL 50 mg tablet 08-19 00:00: 00 01-24 00:00 :00 No [id number] 50mg Take 1 tablet by mouth every 6 (six) hours as needed for Pain (scale 4-6) or Pain (scale 7-10). Indication s: acute pain [facility] zolpidem (AMBIEN) 5 mg tablet 08-11 00:00: 00 10-13 00:00 :00 No [id number] 5mg Take 1 tablet by mouth at bedtime as needed for Insomnia. [facility] traMADoL 50 mg tablet 08-11 00:00: 00 08-19 04:59 :00 No [id number] 50mg Take 1 tablet by mouth every 6 (six) hours as needed for Pain (scale 7-10) for up to 7 days. Indication s: acute pain [facility] celecoxib 100 mg capsule 9 00:00: 00 08-21 04:59 :00 No [id number] 100mg Take 1 capsule by mouth in the morning and 1 capsule in the evening. Take with meals. Do all this for 14 days. [facility] docusate 100 mg capsule 9- 00:00: 00 08-21 04:59 :00 No [id number] 100mg Take 1 capsule by mouth in the morning and 1 capsule in the evening. Do all this for 14 days. [facility] melatonin 3 mg tablet 08-06 00:00: 00 08-21 04:59 :00 No [id number] 3mg Take 1 tablet by mouth at bedtime for 14 days. [facility] proMETHazin e 25 mg tablet 08-06 00:00: 00 08-21 04:59 :00 No [id number] 25mg Take 1 tablet by mouth every 4 (four) hours as needed for Nausea and Vomiting (N/V) for up to 14 days. [facility] sulfamethox azole-trime thoprim 800-160 mg per tablet 08-06 00:00: 00 08-14 04:59 :00 No [id number] 1{tbl} Take 1 tablet by mouth in the morning and 1 tablet in the evening. Do all this for 7 days. [facility] HYDROcodone -acetaminop hen (NORCO) 5-325 mg tablet 08-06 00:00: 00 08-14 04:59 :00 No [id number] 1{tbl} Take 1 tablet by mouth every 6 (six) hours as needed for Pain (scale 7-10) for up to 7 days. Indication s: acute pain [facility] traMADoL 50 mg tablet 08-06 00:00: 00 08-14 04:59 :00 No [id number] 50mg Take 1 tablet by mouth every 6 (six) hours as needed for Pain (scale 4-6) for up to 7 days. Indication s: acute pain [facility] HYDROXYZINE 25 mg tablet 7-16 00:00: 00 02-26 00:00 :00 No [id number] TAKE BY MOUTH 1 TABLET EVERY 6 HOURS NEEDED FOR ITCHING ( CAN TAKE 2 TAB BEFORE BED FOR INSOMNIA [facility] hydrOXYzine 25 mg tablet 5-02 00:00: 00 05-31 04:59 :00 No [id number] 25mg Take 1 tablet by mouth every 6 (six) hours as needed for Itching (can take 2 before bed for insomnia) for up to 60 days. [facility] tra[facility] 50 mg tablet 7-15 00:00: 00 Yes TAKE 1 TABLET BY MOUTH THREE TIMES A DAY NEEDED FOR PAIN [facility] cephALEXin 500 mg capsule 04-08 00:00: 00 Yes [facility] atorvastati n 40 mg tablet 04-02 00:00: 00 Yes [facility] ergocalcife rol, vitamin d2, 1,250 mcg (50,000 unit) capsule 04-02 00:00: 00 Yes [facility] zolpidem 10 mg tablet 03-21 00:00: 00 Yes [facility] Pregabalin 150 MG Pregabalin 150 MG No 1{capsu le} QD Pregabalin 150 MG Letrozole 2.5 MG Letrozole 2.5 MG No 1{table t} QD Letrozole 2.5 MG Augmentin 875-125 MG Augmentin 875-125 MG No 1{table t} BID Augmentin 875-125 MG Vital Signs Vital Name Observation Time Observation Value Comments S ource Systolic blood pressure 2024-11-02 22:30:00 109 mm[Hg] [facility] Diastolic blood pressure 2024-11-02 22:30:00 62 mm[Hg] [facility] Heart rate 2024-11-02 22:30:00 47 /min [facility] Body temperature 2024-11-02 22:30:00 36.78 Mesha [facility] Respiratory rate 2024-11-02 21:03:00 19 /min [facility] Body height 2024-11-02 21:03:00 170.2 cm [facility] Body weight 2024-11-02 21:03:00 77.111 kg [facility] BMI 2024-11-02 21:03:00 26.63 kg/m2 [facility] Oxygen saturation in Arterial blood by Pulse oximetry 2024-11-02 21:03:00 100 /min [facility] temperature 2024-10-25 14:45:00 97.9 [degF] [facility] bmi 2024-10-25 14:45:00 29.28 kg/m2 [facility] oximetry 2024-10-25 14:45:00 97 % [facility] respiratory rate 2024-10-25 14:45:00 16 /min [facility] blood pressure systolic 2024-10-25 14:45:00 124 mm[Hg] [facility] blood pressure diastolic 2024-10-25 14:45:00 58 mm[Hg] [facility] height 2024-10-25 14:45:00 65 [in_i] [facility] weight 2024-10-25 14:45:00 176.0 [lb_av] [facility] height 2024-10-25 14:45:00 65 [in_i] [facility] weight 2024-10-25 14:45:00 176.0 [lb_av] [facility] temperature 2024-10-25 14:45:00 97.9 [degF] [facility] bmi 2024-10-25 14:45:00 29.28 kg/m2 [facility] oximetry 2024-10-25 14:45:00 97 % [facility] respiratory rate 2024-10-25 14:45:00 16 /min [facility] blood pressure systolic 2024-10-25 14:45:00 124 mm[Hg] [facility] blood pressure diastolic 2024-10-25 14:45:00 58 mm[Hg] [facility] Systolic blood pressure 2024-10-04 15:49:00 164 mm[Hg] [facility] Diastolic blood pressure 2024-10-04 15:49:00 85 mm[Hg] [facility] Heart rate 2024-10-04 15:49:00 53 /min [facility] Body height 2024-10-04 15:47:00 170.2 cm [facility] Body weight 2024-10-04 15:47:00 81.103 kg [facility] BMI 2024-10-04 15:47:00 28.00 kg/m2 [facility] Systolic blood pressure 2024-09-26 18:40:00 139 mm[Hg] [facility] Diastolic blood pressure 2024-09-26 18:40:00 79 mm[Hg] [facility] Heart rate 2024-09-26 18:40:00 64 /min [facility] Body height 2024-09-26 18:40:00 170.2 cm [facility] Body weight 2024-09-26 18:40:00 79.924 kg [facility] BMI 2024-09-26 18:40:00 27.60 kg/m2 [facility] Oxygen saturation in Arterial blood by Pulse oximetry 2024-09-26 18:40:00 98 /min [facility] height 2024-06-13 08:20:00 65 [in_i] [facility] weight 2024-06-13 08:20:00 174 [lb_av] [facility] temperature 2024-06-13 08:20:00 97.3 [degF] [facility] bmi 2024-06-13 08:20:00 28.95 kg/m2 [facility] oximetry 2024-06-13 08:20:00 97 % [facility] respiratory rate 2024-06-13 08:20:00 20 /min [facility] blood pressure systolic 2024-06-13 08:20:00 140 mm[Hg] [facility] blood pressure diastolic 2024-06-13 08:20:00 90 mm[Hg] [facility] Systolic blood pressure 2024-05-23 20:39:00 112 mm[Hg] [facility] Diastolic blood pressure 2024-05-23 20:39:00 66 mm[Hg] [facility] Heart rate 2024-05-23 20:39:00 91 /min [facility] Body height 2024-05-23 20:39:00 167.6 cm [facility] Body weight 2024-05-23 20:39:00 81.92 kg [facility] BMI 2024-05-23 20:39:00 29.15 kg/m2 [facility] Oxygen saturation in Arterial blood by Pulse oximetry 2024-05-23 20:39:00 98 /min [facility] Systolic blood pressure 2024-05-04 20:51:00 137 mm[Hg] [facility] [facility] Diastolic blood pressure 2024-05-04 20:51:00 75 mm[Hg] [facility] Heart rate 2024-05-04 20:51:00 70 /min [facility] Body temperature 2024-05-04 20:51:00 36.28 Mesha [facility] Respiratory rate 2024-05-04 20:51:00 18 /min [facility] Body height 2024-05-04 20:51:00 167.6 cm [facility] Body weight 2024-05-04 20:51:00 80.922 kg [facility] BMI 2024-05-04 20:51:00 28.79 kg/m2 [facility] Oxygen saturation in Arterial blood by Pulse oximetry 2024-05-04 20:51:00 96 /min [facility] Systolic blood pressure 2024-04-08 18:15:00 139 mm[Hg] [facility] Diastolic blood pressure 2024-04-08 18:15:00 83 mm[Hg] [facility] Heart rate 2024-04-08 18:15:00 67 /min [facility] Body temperature 2024-04-08 18:15:00 36.44 Mesha [facility] Respiratory rate 2024-04-08 18:15:00 16 /min [facility] Body height 2024-04-08 18:15:00 170.2 cm [facility] Body weight 2024-04-08 18:15:00 81.239 kg [facility] BMI 2024-04-08 18:15:00 28.05 kg/m2 [facility] Oxygen saturation in Arterial blood by Pulse oximetry 2024-04-08 18:15:00 96 /min [facility] Systolic blood pressure 2024-02-19 18:30:00 123 mm[Hg] [facility] Diastolic blood pressure 2024-02-19 18:30:00 65 mm[Hg] [facility] Heart rate 2024-02-19 18:30:00 59 /min [facility] Body temperature 2024-02-19 18:30:00 36.56 Mesha [facility] Respiratory rate 2024-02-19 18:30:00 20 /min [facility] Body height 2024-02-19 18:30:00 170.2 cm [facility] Body weight 2024-02-19 18:30:00 85.276 kg [facility] BMI 2024-02-19 18:30:00 29.44 kg/m2 [facility] Oxygen saturation in Arterial blood by Pulse oximetry 2024-02-19 18:30:00 97 /min [facility] Systolic blood pressure 2024-02-18 16:37:00 152 mm[Hg] [facility] Diastolic blood pressure 2024-02-18 16:37:00 73 mm[Hg] [facility] Heart rate 2024-02-18 16:30:00 66 /min [facility] Respiratory rate 2024-02-18 16:30:00 18 /min [facility] Body height 2024-02-18 16:30:00 170.2 cm [facility] Body weight 2024-02-18 16:30:00 85.73 kg [facility] BMI 2024-02-18 16:30:00 29.60 kg/m2 [facility] Oxygen saturation in Arterial blood by Pulse oximetry 2024-02-18 16:30:00 99 /min [facility] Systolic blood pressure 2024-02-11 18:02:00 143 mm[Hg] [facility] Diastolic blood pressure 2024-02-11 18:02:00 80 mm[Hg] [facility] Heart rate 2024-02-11 18:01:00 83 /min [facility] Body height 2024-02-11 18:01:00 170.2 cm [facility] Body weight 2024-02-11 18:01:00 84.324 kg [facility] BMI 2024-02-11 18:01:00 29.12 kg/m2 [facility] Oxygen saturation in Arterial blood by Pulse oximetry 2024-02-11 18:01:00 98 /min [facility] Systolic blood pressure 2024-01-21 16:58:00 126 mm[Hg] [facility] Diastolic blood pressure 2024-01-21 16:58:00 64 mm[Hg] [facility] Heart rate 2024-01-21 16:58:00 76 /min [facility] Body temperature 2024-01-21 16:58:00 36.28 Mesha [facility] Respiratory rate 2024-01-21 16:58:00 17 /min [facility] Body height 2024-01-21 16:58:00 167.6 cm [facility] Body weight 2024-01-21 16:58:00 85.684 kg [facility] BMI 2024-01-21 16:58:00 30.49 kg/m2 [facility] Oxygen saturation in Arterial blood by Pulse oximetry 2024-01-21 16:58:00 94 /min [facility] Systolic blood pressure 2023-11-11 19:20:00 157 mm[Hg] [facility] Diastolic blood pressure 2023-11-11 19:20:00 64 mm[Hg] [facility] Heart rate 2023-11-11 19:20:00 59 /min [facility] Respiratory rate 2023-11-11 19:20:00 12 /min [facility] Oxygen saturation in Arterial blood by Pulse oximetry 2023-11-11 19:05:00 99 /min [facility] Systolic blood pressure 2023-11-09 15:03:00 147 mm[Hg] [facility] Diastolic blood pressure 2023-11-09 15:03:00 77 mm[Hg] [facility] Heart rate 2023-11-09 15:03:00 76 /min [facility] Body height 2023-11-09 15:03:00 167.6 cm [facility] Body weight 2023-11-09 15:03:00 90.084 kg [facility] BMI 2023-11-09 15:03:00 32.05 kg/m2 [facility] Oxygen saturation in Arterial blood by Pulse oximetry 2023-11-09 15:03:00 96 /min [facility] Systolic blood pressure 2023-10-15 17:18:00 156 mm[Hg] [facility] Diastolic blood pressure 2023-10-15 17:18:00 73 mm[Hg] [facility] Heart rate 2023-10-15 17:18:00 67 /min [facility] Body temperature 2023-10-15 17:17:00 36.28 Mesha [facility] Respiratory rate 2023-10-15 17:17:00 18 /min [facility] Body weight 2023-10-15 17:17:00 88.587 kg [facility] BMI 2023-10-15 17:17:00 30.59 kg/m2 [facility] Systolic blood pressure 2023-10-14 20:01:00 131 mm[Hg] [facility] Diastolic blood pressure 2023-10-14 20:01:00 82 mm[Hg] [facility] Heart rate 2023-10-14 20:01:00 73 /min [facility] Respiratory rate 2023-10-14 20:01:00 15 /min [facility] Body height 2023-10-14 20:01:00 170.2 cm [facility] Body weight 2023-10-14 20:01:00 87.998 kg [facility] BMI 2023-10-14 20:01:00 30.38 kg/m2 [facility] Oxygen saturation in Arterial blood by Pulse oximetry 2023-10-14 20:01:00 96 /min [facility] Systolic blood pressure 2023-10-09 19:23:00 144 mm[Hg] [facility] Diastolic blood pressure 2023-10-09 19:23:00 80 mm[Hg] [facility] Heart rate 2023-10-09 19:23:00 70 /min [facility] Body temperature 2023-10-09 19:23:00 36.56 Mesha [facility] Respiratory rate 2023-10-09 19:23:00 16 /min [facility] Body height 2023-10-09 19:23:00 170.2 cm [facility] Body weight 2023-10-09 19:23:00 87.68 kg [facility] BMI 2023-10-09 19:23:00 30.28 kg/m2 [facility] Oxygen saturation in Arterial blood by Pulse oximetry 2023-10-09 19:23:00 96 /min [facility] Systolic blood pressure 2023-09-24 15:48:00 144 mm[Hg] [facility] Diastolic blood pressure 2023-09-24 15:48:00 75 mm[Hg] [facility] Heart rate 2023-09-24 15:48:00 71 /min [facility] Oxygen saturation in Arterial blood by Pulse oximetry 2023-09-24 15:48:00 95 /min [facility] Systolic blood pressure 2023-09-24 15:48:00 144 mm[Hg] [facility] Diastolic blood pressure 2023-09-24 15:48:00 75 mm[Hg] [facility] Heart rate 2023-09-24 15:48:00 71 /min [facility] Oxygen saturation in Arterial blood by Pulse oximetry 2023-09-24 15:48:00 95 /min [facility] Body temperature 2023-09-24 15:47:00 35.83 Mesha [facility] Respiratory rate 2023-09-24 15:47:00 18 /min [facility] Body weight 2023-09-24 15:47:00 86.909 kg [facility] BMI 2023-09-24 15:47:00 30.01 kg/m2 [facility] Body temperature 2023-09-24 15:47:00 35.83 Mesha [facility] Respiratory rate 2023-09-24 15:47:00 18 /min [facility] Body weight 2023-09-24 15:47:00 86.909 kg [facility] BMI 2023-09-24 15:47:00 30.01 kg/m2 [facility] Systolic blood pressure 2023-09-03 15:55:00 146 mm[Hg] [facility] Diastolic blood pressure 2023-09-03 15:55:00 70 mm[Hg] [facility] Heart rate 2023-09-03 15:55:00 70 /min [facility] Body temperature 2023-09-03 15:55:00 35.56 Mesha [facility] Respiratory rate 2023-09-03 15:55:00 17 /min [facility] Body weight 2023-09-03 15:55:00 86.41 kg [facility] BMI 2023-09-03 15:55:00 29.84 kg/m2 [facility] Oxygen saturation in Arterial blood by Pulse oximetry 2023-09-03 15:55:00 99 /min [facility] Systolic blood pressure 2023-09-03 14:55:00 146 mm[Hg] [facility] Diastolic blood pressure 2023-09-03 14:55:00 70 mm[Hg] [facility] Heart rate 2023-09-03 14:55:00 72 /min [facility] Body temperature 2023-09-03 14:55:00 35.56 Mesha [facility] Respiratory rate 2023-09-03 14:55:00 16 /min [facility] Body weight 2023-09-03 14:55:00 86.41 kg [facility] BMI 2023-09-03 14:55:00 29.84 kg/m2 [facility] Oxygen saturation in Arterial blood by Pulse oximetry 2023-09-03 14:55:00 99 /min [facility] Systolic blood pressure 2023-08-13 16:22:00 138 mm[Hg] [facility] Diastolic blood pressure 2023-08-13 16:22:00 82 mm[Hg] [facility] Heart rate 2023-08-13 16:22:00 73 /min [facility] Body temperature 2023-08-13 16:22:00 35.56 Mesha [facility] Respiratory rate 2023-08-13 16:22:00 18 /min [facility] Body weight 2023-08-13 16:22:00 84.505 kg [facility] BMI 2023-08-13 16:22:00 29.18 kg/m2 [facility] Oxygen saturation in Arterial blood by Pulse oximetry 2023-08-13 16:22:00 98 /min [facility] Systolic blood pressure 2023-08-07 14:11:00 139 mm[Hg] [facility] Diastolic blood pressure 2023-08-07 14:11:00 66 mm[Hg] [facility] Heart rate 2023-08-07 14:11:00 70 /min [facility] Respiratory rate 2023-08-07 14:11:00 18 /min [facility] Body weight 2023-08-07 14:11:00 83.915 kg [facility] BMI 2023-08-07 14:11:00 28.98 kg/m2 [facility] Oxygen saturation in Arterial blood by Pulse oximetry 2023-08-07 14:11:00 98 /min [facility] Systolic blood pressure 2023-07-23 16:18:00 134 mm[Hg] [facility] Diastolic blood pressure 2023-07-23 16:18:00 69 mm[Hg] [facility] Heart rate 2023-07-23 16:18:00 71 /min [facility] Body temperature 2023-07-23 16:17:00 36.44 Mesha [facility] Respiratory rate 2023-07-23 16:17:00 19 /min [facility] Body weight 2023-07-23 16:17:00 82.509 kg [facility] BMI 2023-07-23 16:17:00 28.49 kg/m2 [facility] Oxygen saturation in Arterial blood by Pulse oximetry 2023-07-23 16:17:00 98 /min [facility] Systolic blood pressure 2023-07-06 14:43:00 153 mm[Hg] [facility] Diastolic blood pressure 2023-07-06 14:43:00 82 mm[Hg] [facility] Heart rate 2023-07-06 14:35:00 80 /min [facility] Respiratory rate 2023-07-06 14:35:00 18 /min [facility] Body height 2023-07-06 14:35:00 170.2 cm [facility] Body weight 2023-07-06 14:35:00 79.606 kg [facility] BMI 2023-07-06 14:35:00 27.49 kg/m2 [facility] Systolic blood pressure 2023-07-02 16:08:00 133 mm[Hg] [facility] Diastolic blood pressure 2023-07-02 16:08:00 64 mm[Hg] [facility] Heart rate 2023-07-02 16:08:00 69 /min [facility] Body temperature 2023-07-02 16:07:00 35.89 Mesha [facility] Respiratory rate 2023-07-02 16:07:00 18 /min [facility] Body weight 2023-07-02 16:07:00 82.101 kg [facility] BMI 2023-07-02 16:07:00 28.35 kg/m2 [facility] Oxygen saturation in Arterial blood by Pulse oximetry 2023-07-02 16:07:00 98 /min [facility] Systolic blood pressure 2023-06-01 13:58:00 127 mm[Hg] [facility] Diastolic blood pressure 2023-06-01 13:58:00 77 mm[Hg] [facility] Heart rate 2023-06-01 13:58:00 77 /min [facility] Body height 2023-06-01 13:58:00 170.2 cm [facility] Body weight 2023-06-01 13:58:00 78.064 kg [facility] BMI 2023-06-01 13:58:00 26.95 kg/m2 [facility] Oxygen saturation in Arterial blood by Pulse oximetry 2023-06-01 13:58:00 95 /min [facility] Systolic blood pressure 2023-05-21 16:34:00 135 mm[Hg] [facility] Diastolic blood pressure 2023-05-21 16:34:00 71 mm[Hg] [facility] Heart rate 2023-05-21 16:34:00 78 /min [facility] Body temperature 2023-05-21 16:34:00 35.94 Mesha [facility] Respiratory rate 2023-05-21 16:34:00 20 /min [facility] Body weight 2023-05-21 16:34:00 77.384 kg [facility] BMI 2023-05-21 16:34:00 26.72 kg/m2 [facility] Oxygen saturation in Arterial blood by Pulse oximetry 2023-05-21 16:34:00 96 /min [facility] Systolic blood pressure 2023-04-30 17:27:00 141 mm[Hg] [facility] Diastolic blood pressure 2023-04-30 17:27:00 80 mm[Hg] [facility] Heart rate 2023-04-30 17:27:00 69 /min [facility] Body temperature 2023-04-30 17:27:00 36 Mesha [facility] Respiratory rate 2023-04-30 17:27:00 18 /min [facility] Body weight 2023-04-30 17:27:00 75.4 kg [facility] BMI 2023-04-30 17:27:00 26.03 kg/m2 [facility] Oxygen saturation in Arterial blood by Pulse oximetry 2023-04-30 17:27:00 98 /min [facility] Systolic blood pressure 2023-04-30 16:19:00 150 mm[Hg] [facility] Diastolic blood pressure 2023-04-30 16:19:00 74 mm[Hg] [facility] Heart rate 2023-04-30 16:10:00 69 /min [facility] Body temperature 2023-04-30 16:10:00 36 Mesha [facility] Respiratory rate 2023-04-30 16:10:00 17 /min [facility] Body height 2023-04-30 16:10:00 170.2 cm [facility] Body weight 2023-04-30 16:10:00 75.433 kg [facility] BMI 2023-04-30 16:10:00 26.05 kg/m2 [facility] Oxygen saturation in Arterial blood by Pulse oximetry 2023-04-30 16:10:00 98 /min [facility] Systolic blood pressure 2023-04-09 16:10:00 137 mm[Hg] [facility] Diastolic blood pressure 2023-04-09 16:10:00 74 mm[Hg] [facility] Heart rate 2023-04-09 16:10:00 75 /min [facility] Body temperature 2023-04-09 16:10:00 35.89 Mesha [facility] Respiratory rate 2023-04-09 16:10:00 20 /min [facility] Body weight 2023-04-09 16:10:00 77.2 kg [facility] BMI 2023-04-09 16:10:00 26.66 kg/m2 [facility] Oxygen saturation in Arterial blood by Pulse oximetry 2023-04-09 16:10:00 98 /min [facility] Systolic blood pressure 2023-03-19 15:23:00 131 mm[Hg] [facility] Diastolic blood pressure 2023-03-19 15:23:00 85 mm[Hg] [facility] Heart rate 2023-03-19 15:23:00 85 /min [facility] Body temperature 2023-03-19 15:23:00 36.06 Mesha [facility] Respiratory rate 2023-03-19 15:23:00 16 /min [facility] Body weight 2023-03-19 15:23:00 75.8 kg [facility] BMI 2023-03-19 15:23:00 26.17 kg/m2 [facility] Oxygen saturation in Arterial blood by Pulse oximetry 2023-03-19 15:23:00 98 /min [facility] Systolic blood pressure 2023-03-19 14:33:00 131 mm[Hg] [facility] Diastolic blood pressure 2023-03-19 14:33:00 85 mm[Hg] [facility] Heart rate 2023-03-19 14:33:00 85 /min [facility] Body temperature 2023-03-19 14:33:00 36.06 Mesha [facility] Respiratory rate 2023-03-19 14:33:00 16 /min [facility] Body weight 2023-03-19 14:33:00 75.751 kg [facility] BMI 2023-03-19 14:33:00 26.16 kg/m2 [facility] Oxygen saturation in Arterial blood by Pulse oximetry 2023-03-19 14:33:00 98 /min [facility] Systolic blood pressure 2023-02-26 16:15:00 132 mm[Hg] [facility] Diastolic blood pressure 2023-02-26 16:15:00 80 mm[Hg] [facility] Heart rate 2023-02-26 16:15:00 92 /min [facility] Body temperature 2023-02-26 16:15:00 36.11 Mesha [facility] Respiratory rate 2023-02-26 16:15:00 20 /min [facility] Body weight 2023-02-26 16:15:00 77.7 kg [facility] BMI 2023-02-26 16:15:00 26.83 kg/m2 [facility] Oxygen saturation in Arterial blood by Pulse oximetry 2023-02-26 16:15:00 95 /min [facility] Systolic blood pressure 2023-02-26 15:09:00 132 mm[Hg] [facility] Diastolic blood pressure 2023-02-26 15:09:00 80 mm[Hg] [facility] Heart rate 2023-02-26 15:09:00 92 /min [facility] Body temperature 2023-02-26 15:09:00 36.11 Mesha [facility] Respiratory rate 2023-02-26 15:09:00 17 /min [facility] Body height 2023-02-26 15:09:00 170.2 cm [facility] Body weight 2023-02-26 15:09:00 77.701 kg [facility] BMI 2023-02-26 15:09:00 26.83 kg/m2 [facility] Oxygen saturation in Arterial blood by Pulse oximetry 2023-02-26 15:09:00 95 /min [facility] Systolic blood pressure 2023-02-05 19:34:00 172 mm[Hg] [facility] Diastolic blood pressure 2023-02-05 19:34:00 150 mm[Hg] [facility] Heart rate 2023-02-05 19:34:00 85 /min [facility] Body temperature 2023-02-05 19:34:00 36.89 Mesha [facility] Respiratory rate 2023-02-05 19:34:00 20 /min [facility] Body height 2023-02-05 19:34:00 170.2 cm [facility] Body weight 2023-02-05 19:34:00 75.751 kg [facility] BMI 2023-02-05 19:34:00 26.16 kg/m2 [facility] Oxygen saturation in Arterial blood by Pulse oximetry 2023-02-05 19:34:00 98 /min [facility] Systolic blood pressure 2023-02-05 17:22:00 148 mm[Hg] [facility] Diastolic blood pressure 2023-02-05 17:22:00 111 mm[Hg] [facility] Heart rate 2023-02-05 17:22:00 69 /min [facility] Body temperature 2023-02-05 17:22:00 36.78 Mesha [facility] Respiratory rate 2023-02-05 17:22:00 16 /min [facility] Oxygen saturation in Arterial blood by Pulse oximetry 2023-02-05 17:22:00 97 /min [facility] Systolic blood pressure 2023-02-05 16:12:00 178 mm[Hg] [facility] Diastolic blood pressure 2023-02-05 16:12:00 98 mm[Hg] [facility] Heart rate 2023-02-05 15:57:00 79 /min [facility] Body temperature 2023-02-05 15:56:00 35.78 Mesha [facility] Respiratory rate 2023-02-05 15:56:00 16 /min [facility] Body height 2023-02-05 15:56:00 170.2 cm [facility] Body weight 2023-02-05 15:56:00 75.841 kg [facility] BMI 2023-02-05 15:56:00 26.19 kg/m2 [facility] Oxygen saturation in Arterial blood by Pulse oximetry 2023-02-05 15:56:00 98 /min [facility] Systolic blood pressure 2023-01-25 00:00:00 158 mm[Hg] [facility] Diastolic blood pressure 2023-01-25 00:00:00 83 mm[Hg] [facility] Heart rate 2023-01-25 00:00:00 63 /min [facility] Respiratory rate 2023-01-25 00:00:00 13 /min [facility] Oxygen saturation in Arterial blood by Pulse oximetry 2023-01-25 00:00:00 92 /min [facility] Body temperature 2023-01-24 21:56:00 36.72 Mesha [facility] Body height 2023-01-24 21:56:00 167.6 cm [facility] Body weight 2023-01-24 21:56:00 77.111 kg [facility] BMI 2023-01-24 21:56:00 27.44 kg/m2 [facility] Systolic blood pressure 2023-01-14 14:41:00 134 mm[Hg] [facility] Diastolic blood pressure 2023-01-14 14:41:00 70 mm[Hg] [facility] Heart rate 2023-01-14 14:34:00 78 /min [facility] Body temperature 2023-01-14 14:34:00 35.56 Mesha [facility] Respiratory rate 2023-01-14 14:34:00 18 /min [facility] Body height 2023-01-14 14:34:00 170.2 cm [facility] Body weight 2023-01-14 14:34:00 79.516 kg [facility] BMI 2023-01-14 14:34:00 27.46 kg/m2 [facility] Oxygen saturation in Arterial blood by Pulse oximetry 2023-01-14 14:34:00 97 /min [facility] Systolic blood pressure 2023-01-07 14:46:00 139 mm[Hg] [facility] Diastolic blood pressure 2023-01-07 14:46:00 78 mm[Hg] [facility] Heart rate 2023-01-07 14:44:00 80 /min [facility] Body temperature 2023-01-07 14:44:00 35.94 Mesha [facility] Respiratory rate 2023-01-07 14:44:00 16 /min [facility] Body weight 2023-01-07 14:44:00 79.9 kg [facility] BMI 2023-01-07 14:44:00 27.59 kg/m2 [facility] Oxygen saturation in Arterial blood by Pulse oximetry 2023-01-07 14:44:00 98 /min [facility] Systolic blood pressure 2022-12-31 18:39:00 156 mm[Hg] [facility] Diastolic blood pressure 2022-12-31 18:39:00 86 mm[Hg] [facility] Heart rate 2022-12-31 18:39:00 85 /min [facility] Body temperature 2022-12-31 18:39:00 36.28 Mesha [facility] Respiratory rate 2022-12-31 18:39:00 20 /min [facility] Body weight 2022-12-31 18:39:00 80.3 kg [facility] BMI 2022-12-31 18:39:00 27.73 kg/m2 [facility] Oxygen saturation in Arterial blood by Pulse oximetry 2022-12-31 18:39:00 98 /min [facility] Systolic blood pressure 2022-12-24 16:18:00 136 mm[Hg] [facility] Diastolic blood pressure 2022-12-24 16:18:00 73 mm[Hg] [facility] Heart rate 2022-12-24 16:18:00 77 /min [facility] Body temperature 2022-12-24 16:18:00 36 Mesha [facility] Respiratory rate 2022-12-24 16:18:00 18 /min [facility] Body weight 2022-12-24 16:18:00 80.3 kg [facility] BMI 2022-12-24 16:18:00 27.73 kg/m2 [facility] Oxygen saturation in Arterial blood by Pulse oximetry 2022-12-24 16:18:00 99 /min [facility] Systolic blood pressure 2022-12-24 14:44:00 136 mm[Hg] [facility] Diastolic blood pressure 2022-12-24 14:44:00 73 mm[Hg] [facility] Heart rate 2022-12-24 14:44:00 77 /min [facility] Body temperature 2022-12-24 14:44:00 36 Mesha [facility] Respiratory rate 2022-12-24 14:44:00 16 /min [facility] Body height 2022-12-24 14:44:00 170.2 cm [facility] Body weight 2022-12-24 14:44:00 80.287 kg [facility] BMI 2022-12-24 14:44:00 27.72 kg/m2 [facility] Oxygen saturation in Arterial blood by Pulse oximetry 2022-12-24 14:44:00 99 /min [facility] Systolic blood pressure 2022-12-17 15:49:00 158 mm[Hg] [facility] Diastolic blood pressure 2022-12-17 15:49:00 88 mm[Hg] [facility] Heart rate 2022-12-17 15:48:00 71 /min [facility] Body temperature 2022-12-17 15:48:00 35.44 Mesha [facility] Respiratory rate 2022-12-17 15:48:00 18 /min [facility] Body weight 2022-12-17 15:48:00 80.4 kg [facility] BMI 2022-12-17 15:48:00 27.35 kg/m2 [facility] Oxygen saturation in Arterial blood by Pulse oximetry 2022-12-17 15:48:00 98 /min [facility] Systolic blood pressure 2022-12-10 15:39:00 143 mm[Hg] [facility] Diastolic blood pressure 2022-12-10 15:39:00 71 mm[Hg] [facility] Heart rate 2022-12-10 15:24:00 80 /min [facility] Body temperature 2022-12-10 15:24:00 36.06 Mesha [facility] Respiratory rate 2022-12-10 15:24:00 18 /min [facility] Body weight 2022-12-10 15:24:00 81.8 kg [facility] BMI 2022-12-10 15:24:00 27.83 kg/m2 [facility] Oxygen saturation in Arterial blood by Pulse oximetry 2022-12-10 15:24:00 99 /min [facility] Systolic blood pressure 2022-12-04 16:13:00 162 mm[Hg] [facility] Diastolic blood pressure 2022-12-04 16:13:00 73 mm[Hg] [facility] Heart rate 2022-12-04 16:12:00 67 /min [facility] Body temperature 2022-12-04 16:12:00 35.44 Mesha [facility] Respiratory rate 2022-12-04 16:12:00 18 /min [facility] Body weight 2022-12-04 16:12:00 84.5 kg [facility] BMI 2022-12-04 16:12:00 28.75 kg/m2 [facility] Oxygen saturation in Arterial blood by Pulse oximetry 2022-12-04 16:12:00 97 /min [facility] Systolic blood pressure 2022-12-04 14:59:00 145 mm[Hg] [facility] Diastolic blood pressure 2022-12-04 14:59:00 69 mm[Hg] [facility] Heart rate 2022-12-04 14:52:00 72 /min [facility] Body temperature 2022-12-04 14:52:00 35.33 Mesha [facility] Respiratory rate 2022-12-04 14:52:00 17 /min [facility] Body height 2022-12-04 14:52:00 171.5 cm [facility] Body weight 2022-12-04 14:52:00 84.55 kg [facility] BMI 2022-12-04 14:52:00 28.76 kg/m2 [facility] Oxygen saturation in Arterial blood by Pulse oximetry 2022-12-04 14:52:00 98 /min [facility] Systolic blood pressure 2022-11-27 17:50:00 167 mm[Hg] [facility] Diastolic blood pressure 2022-11-27 17:50:00 89 mm[Hg] [facility] Heart rate 2022-11-27 17:50:00 78 /min [facility] Respiratory rate 2022-11-27 17:50:00 16 /min [facility] Oxygen saturation in Arterial blood by Pulse oximetry 2022-11-27 17:50:00 96 /min [facility] Body temperature 2022-11-27 17:20:00 35.28 Mesha [facility] Body height 2022-11-27 14:43:00 171.5 cm [facility] Body weight 2022-11-27 14:43:00 82.7 kg [facility] BMI 2022-11-27 14:43:00 28.13 kg/m2 [facility] Systolic blood pressure 2022-11-27 14:43:00 162 mm[Hg] [facility] Diastolic blood pressure 2022-11-27 14:43:00 98 mm[Hg] [facility] Heart rate 2022-11-27 14:43:00 79 /min [facility] Body temperature 2022-11-27 14:43:00 35.89 Mesha [facility] Respiratory rate 2022-11-27 14:43:00 16 /min [facility] Body height 2022-11-27 14:43:00 171.5 cm [facility] Body weight 2022-11-27 14:43:00 82.7 kg [facility] BMI 2022-11-27 14:43:00 28.13 kg/m2 [facility] Oxygen saturation in Arterial blood by Pulse oximetry 2022-11-27 14:43:00 98 /min [facility] Systolic blood pressure 2022-11-13 14:55:00 122 mm[Hg] [facility] Diastolic blood pressure 2022-11-13 14:55:00 73 mm[Hg] [facility] Heart rate 2022-11-13 14:48:00 78 /min [facility] Body temperature 2022-11-13 14:48:00 35.89 Mesha [facility] Respiratory rate 2022-11-13 14:48:00 18 /min [facility] Body height 2022-11-13 14:48:00 170.2 cm [facility] Body weight 2022-11-13 14:48:00 83.779 kg [facility] BMI 2022-11-13 14:48:00 28.93 kg/m2 [facility] Oxygen saturation in Arterial blood by Pulse oximetry 2022-11-13 14:48:00 100 /min [facility] Systolic blood pressure 2022-11-12 14:44:00 131 mm[Hg] [facility] Diastolic blood pressure 2022-11-12 14:44:00 83 mm[Hg] [facility] Heart rate 2022-11-12 14:44:00 69 /min [facility] Respiratory rate 2022-11-12 14:44:00 18 /min [facility] Body height 2022-11-12 14:44:00 170.2 cm [facility] Body weight 2022-11-12 14:44:00 84.324 kg [facility] BMI 2022-11-12 14:44:00 29.12 kg/m2 [facility] Systolic blood pressure 2022-10-29 19:15:00 142 mm[Hg] [facility] Diastolic blood pressure 2022-10-29 19:15:00 76 mm[Hg] [facility] Heart rate 2022-10-29 19:15:00 56 /min [facility] Respiratory rate 2022-10-29 19:15:00 18 /min [facility] Oxygen saturation in Arterial blood by Pulse oximetry 2022-10-29 19:15:00 98 /min [facility] Body temperature 2022-10-29 17:56:00 36.67 Mesha [facility] Body height 2022-10-29 17:56:00 170.2 cm [facility] Body weight 2022-10-29 17:56:00 83.915 kg [facility] BMI 2022-10-29 17:56:00 28.98 kg/m2 [facility] Systolic blood pressure 2022-10-22 16:42:00 135 mm[Hg] [facility] Diastolic blood pressure 2022-10-22 16:42:00 65 mm[Hg] [facility] Heart rate 2022-10-22 16:42:00 64 /min [facility] Body temperature 2022-10-22 16:42:00 35.67 Mesha [facility] Respiratory rate 2022-10-22 16:42:00 16 /min [facility] Body height 2022-10-22 16:42:00 171.5 cm [facility] Body weight 2022-10-22 16:42:00 82.918 kg [facility] BMI 2022-10-22 16:42:00 28.21 kg/m2 [facility] Oxygen saturation in Arterial blood by Pulse oximetry 2022-10-22 16:42:00 99 /min [facility] Systolic blood pressure 2022-10-19 18:40:00 127 mm[Hg] [facility] Diastolic blood pressure 2022-10-19 18:40:00 72 mm[Hg] [facility] Heart rate 2022-10-19 18:40:00 70 /min [facility] Respiratory rate 2022-10-19 18:40:00 18 /min [facility] Oxygen saturation in Arterial blood by Pulse oximetry 2022-10-19 18:40:00 100 /min [facility] Body temperature 2022-10-19 16:08:00 36.83 Mesha [facility] Body weight 2022-10-19 16:08:00 83.915 kg [facility] BMI 2022-10-19 16:08:00 28.55 kg/m2 [facility] Systolic blood pressure 2022-10-14 15:40:00 137 mm[Hg] [facility] Diastolic blood pressure 2022-10-14 15:40:00 89 mm[Hg] [facility] Heart rate 2022-10-14 15:40:00 57 /min [facility] Body temperature 2022-10-14 15:40:00 35.33 Mesha [facility] Respiratory rate 2022-10-14 15:40:00 18 /min [facility] Body weight 2022-10-14 15:40:00 83.9 kg [facility] BMI 2022-10-14 15:40:00 28.54 kg/m2 [facility] Oxygen saturation in Arterial blood by Pulse oximetry 2022-10-14 15:40:00 98 /min [facility] Systolic blood pressure 2022-10-13 18:25:00 153 mm[Hg] [facility] Diastolic blood pressure 2022-10-13 18:25:00 76 mm[Hg] [facility] Heart rate 2022-10-13 18:25:00 72 /min [facility] Respiratory rate 2022-10-13 18:25:00 18 /min [facility] Body height 2022-10-13 18:25:00 171.5 cm [facility] Body weight 2022-10-13 18:25:00 83.915 kg [facility] BMI 2022-10-13 18:25:00 28.55 kg/m2 [facility] Oxygen saturation in Arterial blood by Pulse oximetry 2022-10-13 18:25:00 94 /min [facility] Systolic blood pressure 2022-10-07 15:21:00 133 mm[Hg] [facility] Diastolic blood pressure 2022-10-07 15:21:00 75 mm[Hg] [facility] Heart rate 2022-10-07 15:21:00 69 /min [facility] Body temperature 2022-10-07 15:21:00 36.06 Mesha [facility] Respiratory rate 2022-10-07 15:21:00 18 /min [facility] Body height 2022-10-07 15:21:00 167.9 cm verified w/ Ronda Mulligan MA [facility] Body weight 2022-10-07 15:21:00 81.9 kg verified w/ Ronda Mulligan MA [facility] BMI 2022-10-07 15:21:00 29.05 kg/m2 [facility] Oxygen saturation in Arterial blood by Pulse oximetry 2022-10-07 15:21:00 97 /min [facility] Systolic blood pressure 2022-10-02 13:56:00 158 mm[Hg] [facility] Diastolic blood pressure 2022-10-02 13:56:00 86 mm[Hg] [facility] Heart rate 2022-10-02 13:55:00 77 /min [facility] Body temperature 2022-10-02 13:55:00 36.39 Mesha [facility] Respiratory rate 2022-10-02 13:55:00 17 /min [facility] Body weight 2022-10-02 13:55:00 83.008 kg [facility] BMI 2022-10-02 13:55:00 28.66 kg/m2 [facility] Oxygen saturation in Arterial blood by Pulse oximetry 2022-10-02 13:55:00 100 /min [facility] Systolic blood pressure 2022-09-09 21:12:00 139 mm[Hg] [facility] Diastolic blood pressure 2022-09-09 21:12:00 77 mm[Hg] [facility] Heart rate 2022-09-09 21:12:00 67 /min [facility] Body temperature 2022-09-09 21:12:00 37.22 Mesha [facility] Respiratory rate 2022-09-09 21:12:00 18 /min [facility] Body height 2022-09-09 21:12:00 170.2 cm [facility] Body weight 2022-09-09 21:12:00 83.643 kg [facility] BMI 2022-09-09 21:12:00 28.88 kg/m2 [facility] Oxygen saturation in Arterial blood by Pulse oximetry 2022-09-09 21:12:00 97 /min [facility] Systolic blood pressure 2022-09-03 19:19:00 112 mm[Hg] [facility] Diastolic blood pressure 2022-09-03 19:19:00 66 mm[Hg] [facility] Heart rate 2022-09-03 19:19:00 63 /min [facility] Body temperature 2022-09-03 19:19:00 35.72 Mesha [facility] Respiratory rate 2022-09-03 19:19:00 16 /min [facility] Body height 2022-09-03 19:19:00 170.2 cm [facility] Body weight 2022-09-03 19:19:00 85.412 kg [facility] BMI 2022-09-03 19:19:00 29.49 kg/m2 [facility] Oxygen saturation in Arterial blood by Pulse oximetry 2022-09-03 19:19:00 97 /min [facility] Systolic blood pressure 2022-09-02 20:58:00 119 mm[Hg] [facility] Diastolic blood pressure 2022-09-02 20:58:00 74 mm[Hg] [facility] Heart rate 2022-09-02 20:58:00 80 /min [facility] Body temperature 2022-09-02 20:58:00 36.22 Mesha [facility] Respiratory rate 2022-09-02 20:58:00 18 /min [facility] Body height 2022-09-02 20:58:00 170.2 cm [facility] Body weight 2022-09-02 20:58:00 85.186 kg [facility] BMI 2022-09-02 20:58:00 29.41 kg/m2 [facility] Oxygen saturation in Arterial blood by Pulse oximetry 2022-09-02 20:58:00 96 /min [facility] Systolic blood pressure 2022-08-22 15:55:00 114 mm[Hg] [facility] Diastolic blood pressure 2022-08-22 15:55:00 70 mm[Hg] [facility] Heart rate 2022-08-22 15:55:00 74 /min [facility] Body height 2022-08-22 15:55:00 170.2 cm [facility] Body weight 2022-08-22 15:55:00 83.008 kg [facility] BMI 2022-08-22 15:55:00 28.66 kg/m2 [facility] Oxygen saturation in Arterial blood by Pulse oximetry 2022-08-22 15:55:00 96 /min [facility] Systolic blood pressure 2022-08-19 21:23:00 107 mm[Hg] [facility] Diastolic blood pressure 2022-08-19 21:23:00 68 mm[Hg] [facility] Heart rate 2022-08-19 21:23:00 72 /min [facility] Body temperature 2022-08-19 21:23:00 36.61 Mesha [facility] Respiratory rate 2022-08-19 21:23:00 18 /min [facility] Body height 2022-08-19 21:23:00 170.2 cm [facility] Body weight 2022-08-19 21:23:00 84.823 kg [facility] BMI 2022-08-19 21:23:00 29.29 kg/m2 [facility] Oxygen saturation in Arterial blood by Pulse oximetry 2022-08-19 21:23:00 94 /min [facility] Systolic blood pressure 2024-04-08 18:15:00 139 mm[Hg] [facility] Diastolic blood pressure 2024-04-08 18:15:00 83 mm[Hg] [facility] Heart rate 2024-04-08 18:15:00 67 /min [facility] Body temperature 2024-04-08 18:15:00 36.44 Mesha [facility] Respiratory rate 2024-04-08 18:15:00 16 /min [facility] Body height 2024-04-08 18:15:00 170.2 cm [facility] Body weight 2024-04-08 18:15:00 81.239 kg [facility] BMI 2024-04-08 18:15:00 28.05 kg/m2 [facility] Oxygen saturation in Arterial blood by Pulse oximetry 2024-04-08 18:15:00 96 /min [facility] Procedures Procedure Date / Time Performed Performing Clinician Source EKG-12 LEAD 2024-11-02 22:44:04 Raquel Wilks [facility] CT TRAUMA HEAD WO CONTRAST 2024-11-02 22:16:44 Rauqel Wilks [facility] CT TRAUMA CERVICAL SPINE WO CONTRAST 2024-11-02 22:16:44 Raquel Wilks [facility] MAGNESIUM 2024-11-02 21:13:00 Raquel Wilks [facility] TROPONIN I 2024-11-02 21:13:00 Raquel Wilks [facility] COMP. METABOLIC PANEL (31857) 2024-11-02 21:13:00 Raquel Wilks [facility] CBC WITH DIFF 2024-11-02 21:13:00 Raquel Wilks [facility] DEXA AXIAL (HIP AND SPINE) 2024-08-18 16:56:23 Charan Zepeda [facility] BI DEREK GUIDED CORE BREAST B IOPSY LEFT 2024-07-14 19:23:41 Charan Zepeda [facility] XR WRIST <3 VW LEFT 2024-07-06 18:31:36 Danial Parada [facility] TRANSTHORACIC ECHO (TTE) COMPLETE 04-26 13:48:00 Charan Zepeda [facility] TRANSTHORACIC ECHO (TTE) COMPLETE 04-26 13:48:00 hCaran Zepeda [facility] MOBILE CARDIAC TELEMETRY 2024-02-25 20:57:40 Vee Gutierrezammed [facility] HB ECG ROUTINE & RHYTHM STRIP 2024-02-19 18:36:23 Matt Bouchra [facility] AUTHORIZATION TO RELEASE PHI TO [facility] 2024-02-18 05:01:00 Doctor Unassigned, Jacobus [facility] MEDICAL RELEASE/CLEARANCE FORMS 05:01:00 Doctor Unassigned, Jacobus [facility] MEDICAL RELEASE/CLEARANCE FORMS 05:01:00 Doctor Unassigned, Jacobus [facility] EXTERNAL PROVIDER RECORDS 2024-01-06 06:01:00 Doctor Unassigned, Jacobus [facility] IR REMOVAL TUNNELED CENTRAL VENOUS CATHETER WITH PORT/PUMP 2023-11-11 19:21:48 Charan Zepeda [facility] BASIC METABOLIC PANEL (NA, K , CL, CO2, GLUCOSE, BUN, CREATININE, CA) 2023-10-13 19:46:00 Kai Garcia [facility] ASSIGNMENT OF BENEFITS 2023-10-13 18:58:37 Doctor Unassigned, Jacobus [facility] MR LUMBAR SPINE W WO CONTRAST 2023-09-15 14:28:18 Belkis Rollins [facility] TRANSTHORACIC ECHO (TTE) COMPLETE 2022-11 0-16 18:17:00 Charan Zepeda [facility] PHYSICIAN CERTIFICATION STATEMENT 2022-11 0-05 05:01:00 Doctor Unassigned, Jacobus [facility] BI SCREENING TOMOSYNTHESIS LEFT 16:46:03 Charan Zepeda [facility] TRANSTHORACIC ECHO (TTE) COMPLETE 06-22 16:10:00 Charan Zepeda [facility] DEXA AXIAL (HIP AND SPINE) 2023-05-25 14:39:30 Charan Zepeda [facility] DEXA AXIAL (HIP AND SPINE) 2023-05-25 14:39:30 Charan Zepeda [facility] TRANSTHORACIC ECHO (TTE) COMPLETE 03-26 13:20:25 Charan Zepeda [facility] EXTERNAL PROVIDER RECORDS 2023-03-19 05:01:00 Doctor Unassigned, Jacobus [facility] PATIENT FINANCIAL POLICY 2023-02-25 20:03:36 Doctor Unassigned, Jacobus [facility] CONSENT/REFUSAL FOR DIAGNOSI S AND TREATMENT 2023-02-05 19:29:48 Doctor Unassigned, Jacobus [facility] CONSENT/REFUSAL FOR DIAGNOSI S AND TREATMENT 2023-02-05 17:07:37 Doctor Unassigned, Jacobus [facility] CT LUMBAR SPINE WO CONTRAST 2023-01-24 23:30:28 Tash Jenkins [facility] CT THORACIC SPINE WO CONTRAST 2023-01-24 23:30:28 Tash Jenkins [facility] CT THORAX WO CONTRAST 2023-01-24 23:30:28 Tash Jenkins [facility] CT THORAX WO CONTRAST 2023-01-24 23:30:28 Tash Jenkins [facility] CT CERVICAL SPINE WO CONTRAST 2023-01-24 23:18:27 Tash Jenkins [facility] CONSENT/REFUSAL FOR DIAGNOSI S AND TREATMENT 2023-01-24 21:49:33 Doctor Unassigned, Jacobus [facility] DOWNTIME AMBULATORY DOCUMENTS 2023-01-16 06:01:00 Doctor Unassigned, Jacobus [facility] ASSIGNMENT OF BENEFITS 2022-12-11 20:20:53 Doctor Unassigned, Jacobus [facility] COLONOSCOPY (ENDO) 2022-11-27 15:55:08 Jeramy Beckman [facility] COLONOSCOPY (ENDO) 2022-11-27 15:55:08 Jeramy Beckman [facility] COLONOSCOPY (ENDO) 2022-11-27 15:55:08 Karuna Jeramy [facility] ESOPHAGOGASTRODUODENOSCOPY 2022-11-27 15:52:00 Keke Barraza [facility] COLONOSCOPY 2022-11-27 15:52:00 Keke Barraza [facility] EGD (ENDO) 2022-11-27 15:27:01 Jeramy Beckman [facility] EGD (ENDO) 2022-11-27 15:27:01 Jeramy Beckman [facility] ASSIGNMENT OF BENEFITS 2022-11-27 13:46:38 Doctor Unassigned, Jacobus [facility] DME/SUPPLY JUSTIFICATION 2022-11-18 06:01:00 Doctor Unassigned, Jacobus [facility] DISCLOSURE AND CONSENT, MEDI ANDREA AND SURGICAL PROCEDURES 2022-11-12 06:01:00 Doctor Unassigned, Jacobus [facility] REFERRAL- REQUEST/RESPONSE 2022-11-05 06:01:00 Doctor Unassigned, Jacobus [facility] IR REMOVAL TUNNELED CENTRAL VENOUS CATHETER WITH PORT/PUMP 2022-10-29 19:24:08 Kristine Norton [facility] IR REMOVAL TUNNELED CENTRAL VENOUS CATHETER WITH PORT/PUMP 2022-10-29 19:24:08 Kristine Norton [facility] IR CENTRALLY INSERTED DEVICE TUNNELED CATHETER WITH PORT 5 OR OLDER 2022-10-29 19:20:37 Pablo Yepez [facility] ABORH CONFIRMATION (LAB ONLY) 2022-10-19 17:09:00 Suraj Baca [facility] HB ABO GROUPING 2022-10-19 16:32:00 Suraj Baca [facility] LACTIC ACID WHOLE BLOOD 2022-10-19 16:31:00 Suraj Baca [facility] LIPASE 2022-10-19 16:30:00 Suraj Baca [facility] TROPONIN I 2022-10-19 16:30:00 Suraj Baca [facility] COMP. METABOLIC PANEL ([id number]) 2022-10-19 16:30:00 Suraj Baca [facility] CBC WITH DIFF 2022-10-19 16:30:00 Suraj Baca [facility] PROTHROMBIN TIME / INR 2022-10-19 16:30:00 Suraj Baca [facility] ACTIVATED PARTIAL THRMPLAS SANTOS 2022-10-01 0 16:30:00 Suraj Baca [facility] N-TERMINAL PRO-BNP 2022-10-19 16:30:00 Suraj Baca [facility] CONSENT/REFUSAL FOR DIAGNOSI S AND TREATMENT 2022-10-19 15:58:33 Doctor Unassigned, Jacobus [facility] INSURANCE CORRESPONDENCE 2022-10-10 06:01:00 Doctor Unassigned, Jacobus [facility] ASSIGNMENT OF BENEFITS 2022-10-08 20:30:22 Doctor Unassigned, Jacobus [facility] CONSENT/REFUSAL FOR DIAGNOSI S AND TREATMENT 2022-10-08 20:29:55 Doctor Unassigned, Jacobus [facility] DISCLOSURE AND CONSENT, MEDI ANDREA AND SURGICAL PROCEDURES 2022-09-04 05:01:00 Doctor Unassigned, Jacobus [facility] FERRITIN SERUM 2022-05-07 19:14:00 Nalini Finley [facility] HEPATIC FUNCTION PANEL ([id number]) (ALB,T.PRO,BILI T,BU/BC,ALT,AST,ALK PHOS) 2022-05-07 19:14:00 Nalini Finley [facility] BASIC METABOLIC PANEL (NA, K , CL, CO2, GLUCOSE, BUN, CREATININE, CA) 2022-05-07 19:14:00 Nalini Finley [facility] IRON PANEL 2022-05-07 19:14:00 Nalini Finley [facility] CBC WITH DIFF 2022-05-07 19:14:00 Nalini Finley [facility] GLYCOSYLATED HEMOGLOBIN (A1C) 2022-03-27 16:03:00 Tati Alexander [facility] LIPID PANEL ([id number])(TOTAL CHOLESTEROL, TRIGLYCERIDES, HDL) 2022-03-27 16:03:00 Tati Alexander [facility] HCV ANTIBODY 2022-03-27 16:03:00 Tati Alexander [facility] Encounters Start Date/Time End Date/Time Encounter Type Admission Type Attending Clinicians Care Facility Care Department Encounter ID Source 2024-10-13 11:32:00 Outpatient [facility] [id number] [facility] 2024-07-12 11:33:01 Outpatient Sabina Leone [facility] [id number] [facility] 2024-06-13 08:16:00 Outpatient Sabina Leone [facility] [id number] [facility] 2018-02-11 16:04:00 Inpatient [facility] [id number] [facility] 2024-11-02 15:05:00 2024-11-02 16:54:00 Emergency X RAQUEL WILKS [facility] ERT [id number] [facility] 2024-11-02 15:05:00 2024-11-02 16:54:00 Emergency Raquel Wilks [facility] [id number] 350.1.13.10 [id number] [id number] [facility] 2024-11-02 00:00:00 2024-11-02 11:45:10 Telephone [facility] [id number] [id number] [id number] [id number] [facility] 2024-11-02 00:00:00 2024-11-02 00:00:00 (TEL) [facility] [id number] [facility] 2024-10-25 00:00:00 2024-10-25 00:00:00 OFFICE VISIT ESTAB PT LEVEL 4 [facility] [id number] [facility] 2024-10-25 00:00:00 2024-10-25 00:00:00 SUB ANNUAL [facility] STLC STLC [id number] [facility] 2024-10-23 00:00:00 2024-10-23 00:00:00 (TEL) STLMLC ST[facility]C [id number] [facility] 2024-10-17 00:00:00 2024-10-17 00:00:00 (TEL) STLMLC STLMLC [id number] [facility] 2024-10-13 00:00:00 2024-10-13 00:00:00 (TEL) STLMLC STLC [id number] [facility] 2024-10-10 00:00:00 2024-10-10 00:00:00 (TEL) STL[facility]C STLC [id number] [facility] 2024-10-04 09:45:00 2024-10-04 10:16:40 Outpatient R PAUL ORTEGA CRAIG [facility] [id number] [facility] 2024-10-04 09:45:00 2024-10-04 10:16:40 Office Visit Paul Ortega [facility] [id number] 350.1.13.10 [id number] [id number] [facility] 2024-09-28 00:00:00 2024-09-28 00:00:00 (TEL) [facility] [id number] [facility] 2024-09-26 00:00:00 2024-09-26 16:41:27 Telephone Helen Bradshaw [facility] [id number] 350.1.13.10 4.2.7.2.686 [id number] [facility] 2024-09-26 14:00:00 2024-09-26 14:13:09 Outpatient R EMI BRADSHAWSSICA [facility] [id number] [facility] 2024-09-26 14:00:00 2024-09-26 14:13:09 Office Visit Helen Bradshaw [facility] [id number] 350.1.13.10 4.2.7.2.686 [id number] [facility] 2024-09-23 14:00:00 2024-09-23 14:00:00 Outpatient R MADONNALucretia TATI [facility] [id number] [facility] 2024-09-22 00:00:00 2024-09-22 16:32:10 Telephone Catherine Tati [facility] 1.2.840.114 350.1.13.10 4.2.7.2.686 [id number] [facility] 2024-09-19 00:00:00 2024-09-22 15:51:36 Telephone Tammy Barbosa [facility] [id number] 350.1.13.10 4.2.7.2.686 [id number] [facility] 2024-07-20 00:00:00 2024-08-20 18:19:22 Patient Secure Msg Slick Zepedaa Nancy [facility] 1.2.840.114 350.1.13.10 4.2.7.2.686 [id number] [facility] 2024-08-19 11:20:00 2024-08-19 11:40:00 Telemedici ne Visit Roro Zepedashola Cruz [facility] 1.2.840.114 350.1.13.10 4.2.7.2.686 [id number] [facility] 2024-08-19 11:20:00 2024-08-19 11:20:00 Outpatient R CHARAN ZEPEDALLUVIA CHARAN [facility] [id number] [facility] 2024-08-18 11:02:58 2024-08-18 23:59:00 Outpatient R CHARAN ZEPEDA CHARAN [facility] [id number] [facility] 2024-08-18 11:02:58 2024-08-18 23:59:00 Hospital Encounter SeanlluviaRoroCharanshola Tayeen [facility] ..840.114 350.1.13.10 4.2.7.2.686 [id number] [facility] 2024-07-21 09:30:00 2024-07-21 09:30:00 Outpatient R VELÁSQUEZ-BAILEE S, MICHELLE VELÁSQUEZ-BAILEE S, MICHELLE [facility] [id number] [facility] 2024-07-20 00:00:00 2024-07-20 00:00:00 [id number] 2024-07-19 13:30:00 2024-07-19 13:30:00 Outpatient R VELÁSQUEZ-BAILEE S, MICHELLE VELÁSQUEZ-BAILEE S, MICHELLE [facility] [id number] [facility] 2024-07-14 11:38:30 2024-07-14 23:59:00 Outpatient R SEANLLUVIACHARANLLUVIA CHARAN [facility] [id number] [facility] 2024-07-14 11:38:30 2024-07-14 23:59:00 Hospital Encounter Charan Zepeda [facility] ..840.114 350.1.13.10 4.2.7.2.686 [id number] [facility] 2024-07-08 11:20:00 2024-07-08 11:40:00 Telemedici ne Visit Charan Zepeda [facility] 1.2.840.114 350.1.13.10 4.2.7.2.686 [id number] 080 [id number] [facility] 2024-07-08 11:20:00 2024-07-08 11:20:00 Outpatient R CHARAN ZEPEDA NABIHA [facility] [id number] [facility] 2024-07-06 13:10:01 2024-07-06 23:59:00 Hospital Encounter Charan Zepeda [facility] 1.2840.114 350.1.13.10 4.2.7.2.686 [id number] [facility] 2024-07-06 13:09:37 2024-07-06 13:09:37 Outpatient R CHARAN ZEPEDA NABIHA [facility] [id number] [facility] 2024-07-06 13:09:37 2024-07-06 13:09:37 Hospital Encounter Charan Zepeda [facility] 1.2840.114 350.1.13.10 4.2.7.2.686 [id number] 800 [id number] [facility] 2024-07-06 13:09:12 2024-07-06 13:09:12 Hospital Encounter Radiology Radiology [facility] 1.2840.114 350.1.13.10 4.2.7.2.686 [id number] [facility] 2024-06-23 00:00:00 2024-06-23 15:18:08 Telephone Tammy Barbosa [facility] 1.2.840.114 350.1.13.10 4.2.7.2.686 [id number] 044 [id number] [facility] 2024-06-23 10:40:00 2024-06-23 11:00:00 Telemedici ne Visit Charan Zepeda BUILDING 1.84114 350.1.13.10 4.2.7.2.686 [id number] 080 [id number] [facility] 2024-06-23 10:40:00 2024-06-23 10:40:00 Outpatient R CHARAN ZEPEDA NABIHA [facility] [id number] [facility] 2024-06-13 00:00:00 2024-06-13 00:00:00 OFFICE VISIT NEW PT LEVEL 4 STLMLC STLMLC [id number] [facility] 2024-05-09 00:00:00 2024-06-11 18:21:36 Patient Secure Msg Doctor Unassigned, Jacobus [facility] 1..114 350.1.13.10 4.2.7.2.686 [id number] 019 [id number] [facility] 2024-05-23 16:30:00 2024-05-23 16:30:00 [facility] 1..114 350.1.13.10 4.2.7.2.686 [id number] 092 [id number] [facility] 2024-05-23 16:30:00 2024-05-23 16:26:07 [id number] 2022-08-19 00:00:00 2024-05-17 02:13:13 Mobile Device Encounter Kaylene Bowling [facility] 1.114 350.1.13.10 4.2.7.2.686 [id number] [id number] [facility] 2024-05-16 00:00:00 2024-05-16 17:48:26 Letter (Out) Tati Alexander [facility] 1.284.114 350.1.13.10 4.2.7.2.686 [id number] 044 [id number] [facility] 2024-05-12 00:00:00 2024-05-12 11:05:05 Letter (Out) Neurology [facility] 1.2.840.114 350.1.13.10 4.2.7.2.686 [id number] 092 [id number] [facility] 2024-05-10 13:00:00 2024-05-10 13:00:00 Outpatient HELEN RAGSDALE [facility] [id number] [facility] 2024-05-05 08:30:00 2024-05-05 08:30:00 Outpatient ANDRES BOWENSLSHAN [facility] [id number] [facility] 2024-05-05 08:30:00 2024-05-05 08:30:00 Outpatient OLLIE BOWESN [facility] [id number] [facility] 2024-05-04 16:00:00 2024-05-04 16:35:05 Outpatient R KRISTINE NORTON [facility] [id number] [facility] 2024-05-04 16:00:00 2024-05-04 16:35:05 Office Visit Kristine Norton [facility] 1.2.840.114 350.1.13.10 4.2.7.2.686 [id number] [facility] 2024-05-04 14:00:00 2024-05-04 14:00:00 Outpatient TATI HAWKINS [facility] [id number] [facility] 2024-05-03 10:30:00 2024-05-03 10:30:00 Outpatient TADEO MANZANO [facility] [id number] [facility] 2024-05-02 00:00:00 2024-05-03 08:05:57 Patient Secure Tati Bradley [facility] 1.2.840.114 350.1.13.10 4.2.7.2.686 [id number] 044 [id number] [facility] 2024-05-02 15:00:00 2024-05-02 15:00:00 Outpatient R KRISTINE NORTON [facility] [id number] [facility] 2024-04-29 00:00:00 2024-04-29 15:05:39 Telephone Tati Alexander 1.2.840.1 79293.1.1 3.104.2.7 .3.850163 .8 [id number] [facility] 2024-04-28 00:00:00 2024-04-29 11:17:15 Telephone Kristine Norton 1.2.840.1 92708.1.1 3.104.2.7 .3.446540 .8 [id number] [facility] 2024-04-27 00:00:00 2024-04-28 10:22:59 Telephone Kristine Norton 1.2.840.1 31535.1.1 3.104.2.7 .3.403688 .8 [id number] [facility] 2024-04-26 07:59:47 2024-04-26 23:59:00 Outpatient CHARAN MASSEY [facility] [id number] [facility] 2024-04-26 07:59:47 2024-04-26 23:59:00 Hospital Encounter hCaran Zepeda 1.2.840.1 46332.1.1 3.104.2.7 .3.283253 .8 [id number] [facility] 2024-04-15 13:00:00 2024-04-15 13:00:00 Outpatient BOUCHRA MARKS [facility] [id number] [facility] 2024-04-14 11:00:00 2024-04-14 11:00:00 Outpatient SLICK MASSEYA [facility] [id number] [facility] 2024-04-08 13:15:00 2024-04-08 13:48:38 Outpatient R KAI GARCIA NATHAN [facility] [id number] [facility] 2024-04-08 13:15:00 2024-04-08 13:48:38 Office Visit Kai Garcia 1.2.840.1 92333.1.1 3.104.2.7 .3.449209 .8 [id number] [facility] 2024-04-08 00:00:00 2024-04-08 00:00:00 Travel 1.2.840.1 48697.1.1 3.104.2.7 .3.039711 .8 1.2.840.114 350.1.13.10 4.2.7.3.698 084.8 [id number] [facility] 2024-03-24 00:00:00 2024-03-25 13:34:13 Refill Helen Bradshaw 1.2.840.1 27822.1.1 3.104.2.7 .3.845309 .8 [id number] [facility] 2024-03-24 00:00:00 2024-03-24 10:02:13 Refill Berenice Tamyao 1.2.840.1 28910.1.1 3.104.2.7 .3.065848 .8 [id number] [facility] 2024-03-24 00:00:00 2024-03-24 09:34:22 Refill Michelle Grewal 1.2.840.1 63438.1.1 3.104.2.7 .3.750788 .8 [id number] [facility] 2024-02-11 00:00:00 2024-03-19 18:10:32 Patient Secure Msg Doctor Unassigned, Jacobus 1.2.840.1 28350.1.1 3.104.2.7 .3.046373 .8 [id number] [facility] 2024-03-16 00:00:00 2024-03-16 13:23:18 Telephone Bouchra Gutierrez 1.2.840.1 86812.1.1 3.104.2.7 .3.854158 .8 [id number] [facility] 2024-03-01 00:00:00 2024-03-01 11:29:32 Telephone Pcp, Patient Does Not Have A 1.2.840.1 65089.1.1 3.104.2.7 .3.343766 .8 [id number] [facility] 2024-02-25 15:25:27 2024-02-25 23:59:00 Outpatient R MATT BOUCHRA [facility] [id number] [facility] 2024-02-25 15:25:27 2024-02-25 23:59:00 Hospital Encounter Bouchra Gutierrez 1.2.840.1 96736.1.1 3.104.2.7 .3.569560 .8 [id number] [facility] 2024-02-25 00:00:00 2024-02-25 00:00:00 Travel 1.2.840.1 20827.1.1 3.104.2.7 .3.321530 .8 1.2.840.114 350.1.13.10 4.2.7.3.698 084.8 [id number] [facility] 2024-02-24 00:00:00 2024-02-24 08:38:11 Telephone Emi Bradshawssica 1.2.840.1 55210.1.1 3.104.2.7 .3.137253 .8 [id number] [facility] 2024-02-19 14:00:00 2024-02-19 14:47:36 Outpatient Taylor CUENCAHBOUCHRA [facility] [id number] [facility] 2024-02-19 14:00:00 2024-02-19 14:47:36 Office Visit Bouchra Gutierrez 1.2.840.1 02547.1.1 3.104.2.7 .3.797985 .8 [id number] [facility] 2024-02-18 00:00:00 2024-02-18 14:03:51 Telephone Helen Bradshaw 1.2.840.1 07135.1.1 3.104.2.7 .3.537651 .8 [id number] [facility] 2024-02-18 11:30:00 2024-02-18 12:13:12 Outpatient R HELEN BRADSHAW [facility] [id number] [facility] 2024-02-18 11:30:00 2024-02-18 12:13:12 Office Visit Helne Bradshaw 1.2.840.1 98214.1.1 3.104.2.7 .3.584711 .8 [id number] [facility] 2024-02-18 00:00:00 2024-02-18 00:00:00 Travel 1.2.840.1 77806.1.1 3.104.2.7 .3.429980 .8 1.2.840.114 350.1.13.10 4.2.7.3.698 084.8 [id number] [facility] 2024-02-12 00:00:00 2024-02-12 11:05:40 Orders Only Doctor Unassigned, Jacobus 1.2.840.1 46991.1.1 3.104.2.7 .3.479214 .8 [id number] [facility] 2024-02-11 13:00:00 2024-02-11 13:40:10 Outpatient R MICHELLE GREWAL [facility] [id number] [facility] 2024-02-11 13:00:00 2024-02-11 13:40:10 Office Visit Michelle Grewal 1.2.840.1 42211.1.1 3.104.2.7 .3.292167 .8 [id number] [facility] 2024-02-11 00:00:00 2024-02-11 00:00:00 Travel 1.2.840.1 72853.1.1 3.104.2.7 .3.401210 .8 1.2.840.114 350.1.13.10 4.2.7.3.698 084.8 [id number] [facility] 2024-02-05 00:00:00 2024-02-05 14:58:22 Telephone Charan Zepeda 1.2.840.1 35031.1.1 3.104.2.7 .3.601409 .8 [id number] [facility] 2024-01-26 00:00:00 2024-01-26 00:00:00 Patient Secure Msg Doctor Unassigned, Jacobus [facility] 1.2840.114 350.1.13.10 4.2.7.2.686 [id number] 019 [id number] [facility] 2024-01-21 10:20:00 2024-01-21 12:03:20 Outpatient R CHARAN ZEPEDA [facility] [id number] [facility] 2024-01-21 10:20:00 2024-01-21 12:03:20 Office Visit Charan Zepeda [facility] 1.2.840.114 350.1.13.10 4.2.7.2.686 [id number] 080 [id number] [facility] 2024-01-06 00:00:00 2024-01-06 00:00:00 Orders Only Doctor Unassigned, Jacobus [facility] 1.2.840.114 350.1.13.10 4.2.7.2.686 [id number] 009 [id number] [facility] 2024-01-04 00:00:00 2024-01-04 00:00:00 Telephone Charan Zepeda [facility] 1.2.840.114 350.1.13.10 4.2.7.2.686 [id number] 080 [id number] [facility] 2023-12-31 00:00:00 2023-12-31 00:00:00 Telephone Charan Zepeda [facility]ILD[facility] 1.2.840.114 350.1.13.10 4.2.7.2.686 [id number] 080 [id number] [facility] 2023-12-31 00:00:00 2023-12-31 00:00:00 Patient Secure Msg Charan Zepeda [facility] 1.2.840.114 350.1.13.10 4.2.7.2.686 [id number] 080 [id number] [facility] 2023-12-08 13:45:00 2023-12-08 13:45:00 Outpatient R PAUL ORTEGA CRAIG [facility] [id number] [facility] 2023-12-01 13:00:00 2023-12-01 13:00:00 Outpatient R [facility] [id number] [facility] 2023-11-25 13:00:00 2023-11-25 13:00:00 Outpatient R OLLIE LOOMIS [facility] [id number] [facility] 2023-11-18 10:15:00 2023-11-18 10:46:51 Ancillary Visit Ashlee Coffey Nabiha Yasmeen [facility] 1.2.840.114 350.1.13.10 4.2.7.2.686 [id number] [facility] 2023-11-18 09:30:00 2023-11-18 10:24:28 Ancillary Visit Ashlee Harris Craig [facility] 1.840.114 350.1.13.10 4.2.7.2.686 [id number] [facility] 2023-11-11 10:22:49 2023-11-11 23:59:00 Outpatient R CHARAN ZEPEDA NABIHA [facility] [id number] [facility] 2023-11-11 10:22:49 2023-11-11 23:59:00 Hospital Encounter Charan Zepeda Ajirioghene B Valderaz, [facility] 1.840.114 350.1.13.10 4.2.7.2.686 [id number] [facility] 2023-11-10 00:00:00 2023-11-10 00:00:00 Outpatient KAI BROWER NATHAN [facility] [id number] [facility] 2023-11-09 09:00:00 2023-11-09 09:40:02 Outpatient R EMI BRADSHAWSSICA [facility] [id number] [facility] 2023-11-09 09:00:00 2023-11-09 09:40:02 Office Visit Emi Bradshawssica [facility] 1..840.114 350.1.13.10 4.2.7.2.686 [id number] 092 [id number] [facility] 2023-11-09 00:00:00 2023-11-09 00:00:00 Patient Secure Msg Doctor Unassigned, Jacobus [facility] 1..840.114 350.1.13.10 4.2.7.2.686 [id number] 019 [id number] [facility] 2023-11-06 10:00:00 2023-11-06 11:00:00 Telemedici ne Visit Savana Grace [facility] 1.2.840.114 350.1.13.10 4.2.7.2.686 [id number] [facility] 2023-11-06 10:00:00 2023-11-06 10:00:00 Outpatient R SAVANA GRACE [facility] [id number] [facility] 2023-11-06 09:40:00 2023-11-06 09:40:00 Outpatient CHARAN MASSEY [facility] [id number] [facility] 2023-11-05 15:30:00 2023-11-05 16:30:00 Telemedici ne Visit Savana Grace [facility] 1..840.114 350.1.13.10 4.2.7.2.686 [id number] [facility] 2023-11-05 13:45:00 2023-11-05 16:05:09 Outpatient R PAUL ORTEGA CRAIG [facility] [id number] [facility] 2023-11-05 15:30:00 2023-11-05 15:30:00 Outpatient R SAVANA GRACE [facility] [id number] [facility] 2023-11-05 13:45:00 2023-11-05 14:30:00 Ancillary Visit Ashlee Harris Craig L [facility] 1.2.840.114 350.1.13.10 4.2.7.2.686 [id number] [facility] 2023-11-05 13:00:00 2023-11-05 14:01:19 Outpatient R CHARAN ZEPEDA [facility] [id number] [facility] 2023-11-05 13:00:00 2023-11-05 14:01:19 Ancillary Visit Silvina Person Nabiha Yasmeen [facility] 1.2.840.114 350.1.13.10 4.2.7.2.686 [id number] [facility] 2023-10-29 15:45:47 2023-10-29 23:59:00 Outpatient R KAI GARCIA KAI [facility] [id number] [facility] 2023-10-29 15:45:00 2023-10-29 23:59:00 Hospital Encounter Kai Garcia [facility] 1.2.840.114 350.1.13.10 4.2.7.2.686 [id number] 804 [id number] [facility] 2023-10-29 08:45:00 2023-10-29 09:26:34 Ancillary Visit Ashlee Harris Craig L [facility] 1..840.114 350.1.13.10 4.2.7.2.686 [id number] [facility] 2023-10-29 00:00:00 2023-10-29 00:00:00 Case Management Ashlee Harris [facility] 1.2.840.114 350.1.13.10 4.2.7.2.686 [id number] [facility] 2023-10-27 09:40:00 2023-10-28 15:20:29 Outpatient R CHARAN ZEPEDA NABIHA [facility] [id number] [facility] 2023-10-27 09:40:00 2023-10-27 10:00:00 Telemedici ne Visit Charan Zepeda BUILD[facility] 1.2.840.114 350.1.13.10 4.2.7.2.686 [id number] 080 [id number] [facility] 2023-10-15 11:00:00 2023-10-15 13:39:05 Outpatient R CHARAN ZEPEDA NABIHA [facility] [id number] [facility] 2023-10-15 11:00:00 2023-10-15 13:39:05 Nurse Visit 9, [facility] Infusion Chair Charan Zepedasmeen [facility] 1.114 350.1.13.10 4.2.7.2.686 [id number] 053 [id number] [facility] 2023-10-14 14:00:00 2023-10-14 15:09:05 Outpatient R VLADISLAV [facility] [id number] [facility] 2023-10-14 14:00:00 2023-10-14 15:09:05 Office Visit Vladislav [facility] 1..114 350.1.13.10 4.2.7.2.686 [id number] 011 [id number] [facility] 2023-10-14 00:00:00 2023-10-14 00:00:00 Case Management Charan Zepeda [facility] 1..840.114 350.1.13.10 4.2.7.2.686 [id number] 080 [id number] [facility] 2023-10-13 09:00:00 2023-10-13 14:39:02 Outpatient R SEANLLUVIA CHARAN SEANLLUVIA CHARAN [facility] [id number] [facility] 2023-10-13 13:00:00 2023-10-13 14:19:52 Outpatient R PAUL ORTEGA CRAIG 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10 4.2.7.2.686 [id number] [facility] 2023-10-03 00:00:00 2023-10-03 00:00:00 Helen Jean [facility] 1..840.114 350.1.13.10 4.2.7.2.686 [id number] 092 [id number] [facility] 2023-09-24 11:00:00 2023-09-24 13:37:17 Outpatient CHARAN MASSEY NABIHA [facility] [id number] [facility] 2023-09-24 11:00:00 2023-09-24 13:37:17 Nurse Visit 7, [facility] Infusion Chair Aziz, Charan [facility] 1.2840.114 350.1.13.10 4.2.7.2.686 [id number] [facility] 2023-09-23 00:00:00 2023-09-23 00:00:00 Letter (Out) [facility] 1.2.840.114 350.1.13.10 4.2.7.2.686 [id number] [facility] 2023-09-22 09:00:00 2023-09-22 10:48:20 Outpatient R CHARAN ZEPEDA [facility] [id number] [facility] 2023-09-22 09:00:00 2023-09-22 10:48:20 Commercial [employer]aking Teacher Visit 2, [facility] 1.2.840.114 350.1.13.10 4.2.7.2.686 [id number] [facility] 2023-09-17 00:00:00 2023-09-17 00:00:00 Patient Secure Msg Belkis Rollins [facility]ILD[facility] 1.2.840.114 350.1.13.10 4.2.7.2.686 [id number] [facility] 2023-09-15 08:42:02 2023-09-15 23:59:00 Outpatient R BELKIS ROLLINS [facility] [id number] [facility] 2023-09-15 08:42:02 2023-09-15 23:59:00 Hospital Encounter Belkis Rollins [facility] 1.2.840.114 350.1.13.10 4.2.7.2.686 [id number] [facility] 2023-09-14 12:46:17 2023-09-14 23:59:00 Outpatient R CHARAN ZEPEDA [facility] [id number] [facility] 2023-09-14 12:46:17 2023-09-14 23:59:00 Hospital Encounter Charan Zepeda [facility] 1.2.840.114 350.1.13.10 4.2.7.2.686 [id number] [facility] 2023-09-03 10:30:00 2023-09-03 13:30:30 Outpatient R CHARAN ZEPEDA NABIHA [facility] [id number] [facility] 2023-09-03 10:30:00 2023-09-03 12:30:00 Nurse Visit 5, [facility] Infusion Chair Charan Zepedasmeen [facility] 1.2840.114 350.1.13.10 4.2.7.2.686 [id number] [facility] 2023-09-03 09:40:00 2023-09-03 10:39:11 Office Visit Yaneth Minor [facility] 1.2840.114 350.1.13.10 4.2.7.2.686 [id number] [facility] 2023-09-03 00:00:00 2023-09-03 00:00:00 Orders Only Doctor Unassigned, Jacobus [facility] 1.2.840.114 350.1.13.10 4.2.7.2.686 [id number] [facility] 2023-09-02 00:00:00 2023-09-02 00:00:00 Jose Manuelill Helen Bradshaw [facility] 1.2840.114 350.1.13.10 4.2.7.2.686 [id number] [id number] [facility] 2023-09-01 09:00:00 2023-09-01 14:05:10 Outpatient R CHARAN ZEPEDA NABIHA 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 Visit 2, Adc Lab SeanCharan shepherdsmeen [facility] 1.2.840.114 350.1.13.10 4.2.7.2.686 [id number] [facility] 2023-09-01 00:00:00 2023-09-01 00:00:00 Telephone Helen Bradshaw [facility] 1..840.114 350.1.13.10 4.2.7.2.686 [id number] [facility] 2023-09-01 00:00:00 2023-09-01 00:00:00 Telephone Kristine Norton [facility] 1..840.114 350.1.13.10 4.2.7.2.686 [id number] [facility] 2023-08-13 11:00:00 2023-08-13 13:32:48 Outpatient R CHARAN ZEPEDA [facility] [id number] [facility] 2023-08-13 11:00:00 2023-08-13 13:32:48 Nurse Visit 5, [facility] Infusion Chair Charan Zepedasmeen [facility] 1.840.114 350.1.13.10 4.2.7.2.686 [id number] [facility] 2023-08-11 13:00:00 2023-08-11 13:05:49 Outpatient R CHARAN ZEPEDA 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 [id number] [facility] 2023-07-31 11:10:35 2023-07-31 23:59:00 [facility] [id number] [facility] 2023-07-31 10:40:00 2023-07-31 23:59:00 Hospital Encounter Charan Zepedasmeen [facility] 1.2.840.114 350.1.13.10 4.2.7.2.686 [id number] [facility] 2023-07-23 11:30:00 2023-07-23 13:30:00 Nurse Visit 11, [facility] Infusion Chair Charan Zepedasmeen [facility] 1.2.840.114 350.1.13.10 4.2.7.2.686 [id number] 053 [id number] [facility] 2023-07-23 11:30:00 2023-07-23 13:24:26 Outpatient R CHARAN ZEPEDA [facility] [id number] [facility] 2023-07-21 09:00:00 2023-07-21 09:00:00 Outpatient R [facility] [id number] [facility] 2023-07-20 11:00:00 2023-07-20 11:40:55 Outpatient R CHARAN ZEPEDA 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 [id number] [facility] 2023-07-13 10:15:00 2023-07-13 11:19:59 Ancillary Visit NayaSilvina velásquez [facility] 1.2.840.114 350.1.13.10 4.2.7.2.686 [id number] [facility] 2023-07-13 00:00:00 2023-07-13 00:00:00 [facility]EL RESNICK [facility] 1.2.840.114 350.1.13.10 4.2.7.2.686 [id number] 092 [id number] [facility] 2023-07-08 08:00:00 2023-07-08 09:48:52 Ancillary Visit [facility]Silvina [facility] 1.2.840.114 350.1.13.10 4.2.7.2.686 [id number] [facility] 2023-07-06 11:30:00 2023-07-06 11:30:00 Office Visit Augustine [facility]?UZIEL ESCALONA [facility] 1..840.114 350.1.13.10 4.2.7.2.686 [id number] 092 [id number] [facility] 2023-07-06 11:30:00 2023-07-06 10:10:41 Outpatient HELEN RAGSDALE [facility] [id number] [facility] 2023-07-03 09:00:00 2023-07-03 09:00:00 Outpatient R HELEN BRADSHAW [facility] [id number] [facility] 2023-07-02 11:00:00 2023-07-02 13:22:55 Outpatient R DUANE CHARAN [facility] [id number] [facility] 2023-07-02 11:00:00 2023-07-02 13:00:00 Nurse Visit 7, [facility] Infusion Chair Charan Zepeda [facility] 1..840.114 350.1.13.10 4.2.7.2.686 [id number] 053 [id number] [facility] 2023-07-01 10:40:00 2023-07-01 11:00:00 Telemedici ne Visit Charan Zepeda [facility] 1..840.114 350.1.13.10 4.2.7.2.686 [id number] 080 [id number] [facility] 2023-07-01 10:40:00 2023-07-01 10:40:00 Outpatient R CHARAN ZEPEDA [facility] [id number] [facility] 2023-07-01 00:00:00 2023-07-01 00:00:00 [facility]phone [facility] 1..840.114 350.1.13.10 4.2.7.2.686 [id number] 080 [id number] [facility] 2023-06-30 09:00:00 2023-06-30 14:33:48 Outpatient R CHARAN ZEPEDA 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 [id number] [facility] 2023-06-22 10:00:00 2023-06-22 23:59:00 Hospital Encounter Charan Zepedasmeen [facility] 1.840.114 350.1.13.10 4.2.7.2.686 [id number] [id number] [facility] 2023-06-22 00:00:00 2023-06-22 00:00:00 Refill Helen Bradshaw [facility]?UZIEL SARAHCRISTINO [facility] OFF[facility] 1.2.840.114 350.1.13.10 4.2.7.2.686 [id number] 092 [id number] [facility] 2023-06-15 00:00:00 2023-06-15 00:00:00 Telephone SeanlluviaRoroCharanshola Cruz [facility] BUILD[facility] 1.2.840.114 350.1.13.10 4.2.7.2.686 [id number] 080 [id number] [facility] 2023-06-11 11:00:00 2023-06-11 11:00:00 Outpatient R RORO ZEPEDAIHA [facility] [id number] [facility] 2023-06-11 00:00:00 2023-06-11 00:00:00 Telephone Pcp, Patient Does Not Have A [facility] 1.2840.114 350.1.13.10 4.2.7.2.686 [id number] 053 [id number] [facility] 2023-06-03 00:00:00 2023-06-03 00:00:00 Telephone [facility] 1.84.114 350.1.13.10 4.2.7.2.686 [id number] 092 [id number] [facility] 2023-06-01 09:00:00 2023-06-01 14:00:23 Outpatient R [facility] [id number] [facility] 2023-06-01 09:00:00 2023-06-01 14:00:23 Office Visit Augustine [facility]?UZIEL SMITH [facility] 1.114 350.1.13.10 4.2.7.2.686 [id number] 092 [id number] [facility] 2023-05-28 00:00:00 2023-05-28 00:00:00 Telephone Duane Charan Cruz [facility] BUILD[facility] 1..114 350.1.13.10 4.2.7.2.686 [id number] 080 [id number] [facility] 2023-05-25 09:05:01 2023-05-25 23:59:00 Outpatient R CHARAN ZEPEDA [facility] [id number] [facility] 2023-05-25 09:05:01 2023-05-25 23:59:00 Hospital Encounter SeanCharan shepherd [facility] 1.114 350.1.13.10 4.2.7.2.686 [id number] [facility] 2023-05-22 00:00:00 2023-05-22 00:00:00 Patient Secure Msg Doctor Unassigned, Jacobus [facility] 1.2.840.114 350.1.13.10 4.2.7.2.686 [id number] 019 [id number] [facility] 2023-05-21 11:30:00 2023-05-21 14:14:48 Outpatient R CHARAN ZEPEDA [facility] [id number] [facility] 2023-05-21 11:30:00 2023-05-21 13:30:00 Nurse Visit 5, [facility] Infusion Chair Duane [facility] 1..114 350.1.13.10 4.2.7.2.686 [id number] 053 [id number] [facility] 2023-05-21 00:00:00 2023-05-21 00:00:00 Telephone Charan Zepedadonna [facility] 1.114 350.1.13.10 4.2.7.2.686 [id number] 080 [id number] [facility] 2023-05-19 09:15:00 2023-05-19 13:15:30 Outpatient R CHARAN ZEPEDA 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 [id number] [facility] 2023-04-30 13:00:00 2023-04-30 15:00:00 Nurse Visit 1, [facility] Infusion Chair Roro Zepedaiha [facility] 1.114 350.1.13.10 4.2.7.2.686 [id number] 053 [id number] [facility] 2023-04-30 11:00:00 2023-04-30 11:59:59 Outpatient R CHARAN ZEPEDA [facility] [id number] [facility] 2023-04-30 11:00:00 2023-04-30 11:59:59 Office Visit Charan ZepedaROSS [facility] 1.2.840.114 350.1.13.10 4.2.7.2.686 [id number] 080 [id number] [facility] 2023-04-30 11:00:00 2023-04-30 11:00:00 Outpatient R RORO ZEPEDAIHA [facility] [id number] [facility] 2023-04-29 10:30:00 2023-04-29 13:24:42 Outpatient R RORO ZEPEDAIHA 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 2, [facility] Charan Zepeda Nancy [facility] BUILD[facility] 1.2.840.114 350.1.13.10 4.2.7.2.686 [id number] [facility] 2023-04-21 00:00:00 2023-04-21 00:00:00 Refmerry Zepeda Charanshola [facility] 1.2.840.114 350.1.13.10 4.2.7.2.686 [id number] 080 [id number] [facility] 2023-04-21 00:00:00 2023-04-21 00:00:00 Lavon Snider [facility] 1.2.840.114 350.1.13.10 4.2.7.2.686 [id number] 080 [id number] [facility] 2023-04-09 11:00:00 2023-04-09 13:53:19 Outpatient R CHARAN ZEPEDA [facility] [id number] [facility] 2023-04-09 11:00:00 2023-04-09 13:53:19 Nurse Visit 8, [facility]fusion [facility] 1.2.840.114 350.1.13.10 4.2.7.2.686 [id number] 053 [id number] [facility] 2023-04-08 08:45:00 2023-04-08 13:10:20 Outpatient R RORO ZEPEDAIHA 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 2, [facility] Duane Charan [facility] 1.2.840.114 350.1.13.10 4.2.7.2.686 [id number] [facility] 2023-04-02 00:00:00 2023-04-02 00:00:00 Telephone Charan Zepedasmeen [facility] 1.2.840.114 350.1.13.10 4.2.7.2.686 [id number] 080 [id number] [facility] 2023-03-26 07:18:06 2023-03-26 23:59:00 Hospital Encounter Charan Zepeda [facility] 1.2.840.114 350.1.13.10 4.2.7.2.686 [id number] [id number] [facility] 2023-03-26 13:00:00 2023-03-26 13:00:00 Outpatient R AUGUSTINE HELEN [facility] [id number] [facility] 2023-03-19 11:00:00 2023-03-19 13:00:00 Nurse Visit 8, [facility] 1.0.114 350.1.13.10 4.2.7.2.686 [id number] 053 [id number] [facility] 2023-03-19 09:40:00 2023-03-19 12:31:41 Outpatient R CHARAN ZEPEDA [facility] [id number] [facility] 2023-03-19 09:40:00 2023-03-19 12:31:41 Office Visit Charan Zepedasmeen [facility] 1.840.114 350.1.13.10 4.2.7.2.686 [id number] 080 [id number] [facility] 2023-03-19 00:00:00 2023-03-19 00:00:00 Orders Only Doctor Unassigned, Jacobus [facility] 1.840.114 350.1.13.10 4.2.7.2.686 [id number] 009 [id number] [facility] 2023-03-17 15:00:00 2023-03-17 15:31:25 Outpatient R CHARAN ZEPEDA 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 Infusion [facility] 1.20.114 350.1.13.10 4.2.7.2.686 [id number] 053 [id number] [facility] 2023-02-26 09:40:00 2023-02-26 10:30:13 Outpatient R CHARAN ZEPEDA [facility] [id number] [facility] 2023-02-26 09:40:00 2023-02-26 10:30:13 Office Visit Charan Zepeda BUILDING 1.2840.114 350.1.13.10 4.2.7.2.686 [id number] 080 [id number] [facility] 2023-02-25 14:00:00 2023-02-25 15:29:48 Outpatient R CHARAN ZEPEDA 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 [id number] [facility] 2023-02-20 00:00:00 2023-02-20 00:00:00 Case Management [facility] 1.0.114 350.1.13.10 4.2.7.2.686 [id number] 080 [id number] [facility] 2023-02-10 00:00:00 2023-02-10 00:00:00 Lavon Snider [facility] 1..114 350.1.13.10 4.2.7.2.686 [id number] 081 [id number] [facility] 2023-02-09 00:00:00 2023-02-09 00:00:00 Letter (Out) Clinic, [facility] Neurology Resident [facility] 1.2840.114 350.1.13.10 4.2.7.2.686 [id number] 092 [id number] [facility] 2023-02-06 11:30:00 2023-02-06 11:30:00 Outpatient LAVON VELEZ LAUREN [facility] [id number] [facility] 2023-02-05 13:42:00 2023-02-05 14:33:00 Emergency Raquel Wilks [facility] 1.20.114 350.1.13.10 4.2.7.2.686 [id number] 084 [id number] [facility] 2023-02-05 11:21:00 2023-02-05 12:12:00 Emergency X [facility] ERT [id number] [facility] 2023-02-05 11:21:00 2023-02-05 12:12:00 Emergency [facility] 1.20.114 350.1.13.10 4.2.7.2.686 [id number] 014 [id number] [facility] 2023-02-05 10:00:00 2023-02-05 10:41:17 Outpatient R CHARAN ZEPEDA [facility] [id number] [facility] 2023-02-05 10:00:00 2023-02-05 10:41:17 Outpatient R CHARAN ZEPEDA [facility] ERT [id number] [facility] 2023-02-05 10:00:00 2023-02-05 10:41:17 Office Visit Charan Zepeda [facility] 1.20.114 350.1.13.10 4.2.7.2.686 [id number] 080 [id number] [facility] 2023-02-05 00:00:00 2023-02-05 00:00:00 Patient Secure Msg Doctor Unassigned, Jacobus [facility] 1..114 350.1.13.10 4.2.7.2.686 [id number] [facility] 2023-02-05 00:00:00 2023-02-05 00:00:00 Patient Secure Msg Doctor Unassigned, Jacobus [facility] 1.84.114 350.1.13.10 4.2.7.2.686 [id number] 019 [id number] [facility] 2023-02-04 12:00:00 2023-02-04 12:00:00 Outpatient R CHARAN ZEPEDA [facility] [id number] [facility] 2023-02-03 09:30:00 2023-02-03 09:30:00 Outpatient R RORO ZEPEDAIHA [facility] [id number] [facility] 2023-02-02 10:00:00 2023-02-02 10:08:42 Outpatient R CHARAN ZEPEDA 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 [id number] [facility] 2023-01-27 00:00:00 2023-01-27 00:00:00 Telephone Charan Zepeda [facility] 1.2.840.114 350.1.13.10 4.2.7.2.686 [id number] 080 [id number] [facility] 2023-01-24 16:04:00 2023-01-24 19:28:00 Emergency X TASH JENKINS [facility] ERT [id number] [facility] 2023-01-24 16:04:00 2023-01-24 19:28:00 Emergency Tash Jenkins S [facility] 1.2.840.114 350.1.13.10 4.2.7.2.686 [id number] 084 [id number] [facility] 2023-01-23 00:00:00 2023-01-23 00:00:00 Telephone Charan Zepeda [facility] 1.2.840.114 350.1.13.10 4.2.7.2.686 [id number] 080 [id number] [facility] 2023-01-21 00:00:00 2023-01-21 00:00:00 Clinic Assessment Charan Zepeda [facility] 1.2.840.114 350.1.13.10 4.2.7.2.686 [id number] 053 [id number] [facility] 2023-01-20 09:30:00 2023-01-20 09:30:00 Outpatient R [facility] [id number] [facility] 2023-01-20 00:00:00 2023-01-20 00:00:00 Patient Secure Msg Doctor Unassigned, Jacobus [facility] 1.2.840.114 350.1.13.10 4.2.7.2.686 [id number] 037 [id number] [facility] 2023-01-16 00:00:00 2023-01-16 00:00:00 Orders Only Doctor Unassigned, Jacobus [facility] 1.2.840.114 350.1.13.10 4.2.7.2.686 [id number] [id number] [facility] 2023-01-14 12:00:00 2023-01-14 12:00:00 Outpatient R CHARAN ZEPEDA [facility] [id number] [facility] 2023-01-14 09:00:00 2023-01-14 09:00:00 Office Visit Charan Zepedasmeen [facility] 1..114 350.1.13.10 4.2.7.2.686 [id number] 080 [id number] [facility] 2023-01-13 09:30:00 2023-01-13 15:38:36 Outpatient R CHARAN ZEPEDA 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 [id number] [facility] 2023-01-07 08:00:00 2023-01-07 12:25:20 Nurse Visit 3, [facility] Infusion Chair DuaneCharan [facility] 1.114 350.1.13.10 4.2.7.2.686 [id number] 053 [id number] [facility] 2023-01-07 00:00:00 2023-01-07 00:00:00 Case Management Charan Zepedasmeen [facility] 1..114 350.1.13.10 4.2.7.2.686 [id number] 080 [id number] [facility] 2023-01-06 09:30:00 2023-01-06 13:01:21 Outpatient R CHARAN ZEPEDA 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 [id number] [facility] 2022-12-31 11:30:00 2022-12-31 15:37:56 Nurse Visit 10, [facility] Infusion Chair Charan Zepeda [facility] 1..840.114 350.1.13.10 4.2.7.2.686 [id number] 053 [id number] [facility] 2022-12-30 09:30:00 2022-12-30 15:58:03 Outpatient R CHARAN ZEPEDA 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 [id number] [facility] 2022-12-24 09:30:00 2022-12-24 13:30:38 Nurse Visit 7, [facility] Infusion Chair Charan Zepeda [facility] 1.2840.114 350.1.13.10 4.2.7.2.686 [id number] 053 [id number] [facility] 2022-12-24 08:40:00 2022-12-24 09:25:07 Outpatient R CHARAN ZEPEDA [facility] [id number] [facility] 2022-12-24 08:40:00 2022-12-24 09:25:07 Office [facility] 1.2840.114 350.1.13.10 4.2.7.2.686 [id number] [facility] 2022-12-23 09:45:00 2022-12-23 10:00:00 [employer] Visit 2, [facility] Charan Zepedasmeen [facility] 1.284.114 350.1.13.10 4.2.7.2.686 [id number] [facility] 2022-12-23 09:45:00 2022-12-23 09:45:00 Outpatient R RORO ZEPEDAIHA [facility] [id number] [facility] 2022-12-22 09:30:00 2022-12-22 09:30:00 Outpatient R RORO ZEPEDAIHA [facility] [id number] [facility] 2022-12-22 00:00:00 2022-12-22 00:00:00 Telephone Charan Zepedasmeen [facility] 1.2.840.114 350.1.13.10 4.2.7.2.686 [id number] [facility] 2022-12-17 09:30:00 2022-12-17 14:04:43 Outpatient R CHARAN ZEPEDA [facility] [id number] [facility] 2022-12-17 09:30:00 2022-12-17 14:04:43 Nurse Visit 7, [facility] Infusion Chair Charan Zepeda [facility] 1.2.840.114 350.1.13.10 4.2.7.2.686 [id number] [id number] [facility] 2022-12-17 00:00:00 2022-12-17 00:00:00 Letter (Out) Charan [facility]asme[facility] 1.2.840.114 350.1.13.10 4.2.7.2.686 [id number] [id number] [facility] 2022-12-17 00:00:00 2022-12-17 00:00:00 Case Management Charan Zepedasmeen [facility] 1.2.840.114 350.1.13.10 4.2.7.2.686 [id number] [id number] [facility] 2022-12-16 08:30:00 2022-12-16 16:00:53 Outpatient R CHARAN ZEPEDA [facility] [id number] [facility] 2022-12-16 08:30:00 2022-12-16 08:45:00 [employer]aking Teacher Visit 2, Adc Lab Charan Zepedasmeen [facility] 1.2.840.114 350.1.13.10 4.2.7.2.686 [id number] [facility] 2022-12-11 14:35:48 2022-12-11 23:59:00 Outpatient R CHARAN ZEPEDA [facility] [id number] [facility] 2022-12-11 00:00:00 2022-12-11 00:00:00 Outpatient R TOBIAS EDUARDO [facility] [id number] [facility] 2022-12-11 00:00:00 2022-12-11 00:00:00 Orders Only Doctor Unassigned, Jacobus [facility] 1.2840.114 350.1.13.10 4.2.7.2.686 [id number] [facility] 2022-12-10 09:30:00 2022-12-10 12:58:21 Outpatient R RORO ZEPEDAIHA [facility] [id number] [facility] 2022-12-10 09:30:00 2022-12-10 12:58:21 Nurse Visit 5, [facility] Infusion Chair Charan Zepeda [facility] 1..114 350.1.13.10 4.2.7.2.686 [id number] [id number] [facility] 2022-12-10 00:00:00 2022-12-10 00:00:00 Telephone Charan Zepeda [facility] 1..114 350.1.13.10 4.2.7.2.686 [id number] [id number] [facility] 2022-12-09 13:30:00 2022-12-09 13:43:08 Outpatient R CHARAN ZEPEDA 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 [id number] [facility] 2022-12-04 09:30:00 2022-12-04 14:23:32 Nurse Visit 7, [facility] Infusion Chair Charan Zepedasmeen [facility] 1.2840.114 350.1.13.10 4.2.7.2.686 [id number] 053 [id number] [facility] 2022-12-04 09:00:00 2022-12-04 09:27:58 Outpatient R RORO ZEPEDAIHA [facility] [id number] [facility] 2022-12-04 09:00:00 2022-12-04 09:27:58 Office Visit Charan [facility]epedasmeen [facility] 1.2840.114 350.1.13.10 4.2.7.2.686 [id number] 080 [id number] [facility] 2022-12-03 08:30:00 2022-12-03 13:20:33 Outpatient R RORO ZEPEDAIHA 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7.2.686 [id number] 080 [id number] [facility] 2022-12-01 09:30:00 2022-12-01 09:30:00 Outpatient R CHARAN ZEPEDA [facility] [id number] [facility] 2022-11-27 08:14:00 2022-11-27 12:16:00 [id number] 2022-11-27 08:14:00 2022-11-27 12:16:00 Hospital Encounter Keke Barraza [facility] 1.840.114 350.1.13.10 4.2.7.2.686 [id number] 020 [id number] [facility] 2022-11-27 09:45:00 2022-11-27 10:45:00 Surgery Keke Barraza [facility] 1.840.114 350.1.13.10 4.2.7.2.686 [id number] 020 [id number] [facility] 2022-11-27 00:00:00 2022-11-27 00:00:00 Orders Only Doctor Unassigned, Jacobus [facility] 1.840.114 350.1.13.10 4.2.7.2.686 [id number] 009 [id number] [facility] 2022-11-25 09:30:00 2022-11-25 09:30:00 Outpatient R CHARAN ZEPEDA [facility] [id number] [facility] 2022-11-21 00:00:00 2022-11-21 00:00:00 Patient Secure Msg Doctor Unassigned, Jacobus [facility] 1.840.114 350.1.13.10 4.2.7.2.686 [id number] 020 [id number] [facility] 2022-11-18 11:15:00 2022-11-18 11:34:08 Outpatient R RORO ZEPEDAIHA 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 Charan Zepeda [facility] ABRAHAM LOYOLA [facility] 1.840.114 350.1.13.10 4.2.7.2.686 [id number] [facility] 2022-11-18 00:00:00 2022-11-18 00:00:00 Orders Only Doctor Unassigned, Jacobus [facility] 1.0.114 350.1.13.10 4.2.7.2.686 [id number] 009 [id number] [facility] 2022-11-17 09:30:00 2022-11-17 09:30:00 [facility] [id number] [facility] 2022-11-13 09:20:00 2022-11-13 09:29:47 Outpatient R RORO ZEPEDAIHA [facility] [id number] [facility] 2022-11-13 09:20:00 2022-11-13 09:29:47 Office Visit Charan Zepeda [facility] 1.840.114 350.1.13.10 4.2.7.2.686 [id number] 080 [id number] [facility] 2022-11-13 00:00:00 2022-11-13 00:00:00 Ingrid Arroyo [facility] 1.0.114 350.1.13.10 4.2.7.2.686 [id number] 080 [id number] [facility] 2022-11-12 09:30:00 2022-11-12 10:00:00 Office Visit Lavon Blake [facility] 1.0.114 350.1.13.10 4.2.7.2.686 [id number] 071 [id number] [facility] 2022-11-12 09:30:00 2022-11-12 09:30:00 Outpatient Taylor BLAKE LAVONKARRI BLAKE LAVON 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 [id number] [facility] 2022-11-04 09:30:00 2022-11-04 09:30:00 Outpatient R CHARAN ZEPEDA [facility] [id number] [facility] 2022-11-03 09:30:00 2022-11-03 09:30:00 Outpatient R CHARAN ZEPEDA [facility] [id number] [facility] 2022-11-03 00:00:00 2022-11-03 00:00:00 Telephone Charan Zepeda BUILDING 1..840.114 350.1.13.10 4.2.7.2.686 [id number] 080 [id number] [facility] 2022-10-29 11:37:49 2022-10-29 23:59:00 Outpatient R RUFINAJOHN KRISTINE [facility] [id number] [facility] 2022-10-29 11:37:49 2022-10-29 23:59:00 [facility] 1.2.840.114 350.1.13.10 4.2.7.2.686 [id number] [id number] [facility] 2022-10-29 11:18:45 2022-10-29 11:36:00 Hospital Encounter [facility] 1..840.114 350.1.13.10 4.2.7.2.686 [id number] 803 [id number] [facility] 2022-10-29 00:00:00 2022-10-29 00:00:00 [facility] 1..840.114 350.1.13.10 4.2.7.2.686 [id number] 803 [id number] [facility] 2022-10-28 09:30:00 2022-10-28 09:30:00 Outpatient R CHARAN ZEPEDA [facility] [id number] [facility] 2022-10-27 09:30:00 2022-10-27 13:07:00 Outpatient R CHARAN ZEPEDA 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 [id number] [facility] 2022-10-21 09:00:00 2022-10-21 09:00:00 Outpatient R CHARAN ZEPEDA [facility] [id number] [facility] 2022 09:30:00 2022 14:08:51 Outpatient R CHARAN ZEPEDA 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 2, Adc Lab Charan [facility] 1.2840.114 350.1.13.10 4.2.7.2.686 [id number] [facility] 2022 00:00:00 2022 00:00:00 Telephone Charan Zepeda [facility] 1.2840.114 350.1.13.10 4.2.7.2.686 [id number] 080 [id number] [facility] 2022 00:00:00 2022 00:00:00 Patient Secure Lavon Torrez [facility] 1.20.114 350.1.13.10 4.2.7.2.686 [id number] 080 [id number] [facility] 2022-10-19 10:10:00 2022-10-19 13:38:00 Emergency X SURAJ BACA [facility] ERT [id number] [facility] 2022-10-19 10:10:00 2022-10-19 13:38:00 Emergency Suraj Baca [facility] 1.2840.114 350.1.13.10 4.2.7.2.686 [id number] 084 [id number] [facility] 2022-10-19 00:00:00 2022-10-19 00:00:00 Nurse Triage Davis Mueller [facility] 1.2840.114 350.1.13.10 4.2.7.2.686 [id number] 019 [id number] [facility] 2022-10-16 00:00:00 2022-10-16 00:00:00 Telephone Kristine Norton [facility] 1.2.84.114 350.1.13.10 4.2.7.2.686 [id number] [facility] 2022-10-14 09:00:00 2022-10-14 12:58:16 Outpatient R CHARAN ZEPEDA [facility] [id number] [facility] 2022-10-14 09:00:00 2022-10-14 12:58:16 Nurse Visit 1, [facility] Infusion Chair Charan Zepedasmeen [facility] 1..114 350.1.13.10 4.2.7.2.686 [id number] 053 [id number] [facility] 2022-10-13 12:45:00 2022-10-13 13:00:00 Office Visit Kristine Norton 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 1.84.114 350.1.13.10 4.2.7.2.686 [id number] [facility] 2022-10-10 00:00:00 2022-10-10 00:00:00 Orders Only Doctor Unassigned, Jacobus [facility] 1.2840.114 350.1.13.10 4.2.7.2.686 [id number] 009 [id number] [facility] 2022-10-08 14:30:37 2022-10-08 23:59:00 Outpatient R HERNESTOLAOVN [facility] [id number] [facility] 2022-10-08 14:30:37 2022-10-08 23:59:00 Hospital Encounter HernestoLavon [facility] 1.2840.114 350.1.13.10 4.2.7.2.686 [id number] 807 [id number] [facility] 2022-10-08 00:00:00 2022-10-08 00:00:00 Orders Only Doctor Unassigned, Jacobus [facility] 1.840.114 350.1.13.10 4.2.7.2.686 [id number] 009 [id number] [facility] 2022-10-07 09:00:00 2022-10-07 12:30:00 Nurse Visit 5, [facility] Infusion Chair Charan Zepeda [facility] 1.0.114 350.1.13.10 4.2.7.2.686 [id number] 053 [id number] [facility] 2022-10-07 09:00:00 2022-10-07 09:00:00 Outpatient CHARAN MASSEY 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 [id number] [facility] 2022-10-06 08:00:00 2022-10-06 08:00:00 Outpatient R RORO ZEPEDAIHA [facility] [id number] [facility] 2022-10-06 00:00:00 2022-10-06 00:00:00 Telephone Kristine Norton [facility] 1..840.114 350.1.13.10 4.2.7.2.686 [id number] [facility] 2022-10-03 15:00:00 2022-10-03 15:00:00 Outpatient R MADONNALucretia TATI [facility] [id number] [facility] 2022-10-03 00:00:00 2022-10-03 00:00:00 Case Management Kaylene Bowling [facility] 1..840.114 350.1.13.10 4.2.7.2.686 [id number] 010 [id number] [facility] 2022-10-02 09:20:00 2022-10-02 09:20:44 Outpatient R RORO ZEPEDAIHA [facility] [id number] [facility] 2022-10-02 09:20:00 2022-10-02 09:20:44 Office Visit Charan Zepeda [facility] 1..840.114 350.1.13.10 4.2.7.2.686 [id number] 080 [id number] [facility] 2022-10-01 00:00:00 2022-10-01 00:00:00 Telephone Charan Zepeda [facility] 1.2.840.114 350.1.13.10 4.2.7.2.686 [id number] 080 [id number] [facility] 2022-10-01 00:00:00 2022-10-01 00:00:00 Telephone Charan Zepeda [facility] 1.2.840.114 350.1.13.10 4.2.7.2.686 [id number] 080 [id number] [facility] 2022-09-29 13:00:00 2022-09-29 13:28:13 Outpatient R CHARAN ZEPEDA 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 [id number] [facility] 2022-09-24 00:00:00 2022-09-24 00:00:00 Case Management Charan Zepeda BUILD[facility] 1.2.840.114 350.1.13.10 4.2.7.2.686 [id number] 080 [id number] [facility] 2022-09-22 00:00:00 2022-09-22 00:00:00 Patient Secure Msg Doctor Unassigned, Jacobus [facility] 1.2840.114 350.1.13.10 4.2.7.2.686 [id number] 053 [id number] [facility] 2022-09-18 00:00:00 2022-09-18 00:00:00 Telephone Kristine Norton [facility] 1.2840.114 350.1.13.10 4.2.7.2.686 [id number] [facility] 2022-09-10 00:00:00 2022-09-10 00:00:00 Patient Secure Msg Doctor Unassigned, Jacobus [facility] 1.2840.114 350.1.13.10 4.2.7.2.686 [id number] 080 [id number] [facility] 2022-09-09 16:00:00 2022-09-09 16:51:54 Office Visit Kristine Norton [facility] 1.0.114 350.1.13.10 4.2.7.2.686 [id number] [facility] 2022-09-09 16:00:00 2022-09-09 16:51:54 Outpatient R KRISTINE NORTON [facility] [id number] [facility] 2022-09-09 00:00:00 2022-09-09 00:00:00 Telephone Kristine Norton [facility] 1.20.114 350.1.13.10 4.2.7.2.686 [id number] [facility] 2022-09-04 00:00:00 2022-09-04 00:00:00 Orders Only Doctor Unassigned, Jacobus [facility] 1.2840.114 350.1.13.10 4.2.7.2.686 [id number] 009 [id number] [facility] 2022-09-03 14:40:00 2022-09-03 15:22:07 Office Visit Charan Zepeda [facility]ILD[facility] 1.2.840.114 350.1.13.10 4.2.7.2.686 [id number] 080 [id number] [facility] 2022-09-03 14:40:00 2022-09-03 15:22:07 Outpatient R CHARAN ZEPEDA [facility] [id number] [facility] 2022-09-02 16:30:00 2022-09-02 16:30:00 Office Visit Kristine Norton [facility] 1.2.840.114 350.1.13.10 4.2.7.2.686 [id number] [facility] 2022-09-02 16:30:00 2022-09-02 16:28:38 Outpatient R KRISTINE NORTON [facility] [id number] [facility] 2022-08-22 11:00:00 2022-08-22 11:28:21 Outpatient R HOLTSLAVALUZMA [facility] [id number] [facility] 2022-08-22 11:00:00 2022-08-22 11:28:21 Office Visit Holt Luzma [facility] 1.2.840.114 350.1.13.10 4.2.7.2.686 [id number] [facility] 2022-08-21 00:00:00 2022-08-21 00:00:00 Telephone RufinajohnKristine [facility] 1.2.840.114 350.1.13.10 4.2.7.2.686 [id number] [facility] 2022-08-20 11:20:00 2022-08-20 11:20:00 Outpatient R CHARAN ZEPEDA [facility] [id number] [facility] 2022-08-20 00:00:00 2022-08-20 00:00:00 Multidisci plinary Conference Audrey Miramontes [facility] 1.2.840.114 350.1.13.10 4.2.7.2.686 [id number] [facility] 2022-08-19 16:30:00 2022-08-19 16:56:04 Outpatient R KRISTINE NORTON [facility] [id number] [facility] 2022-08-19 16:30:00 2022-08-19 16:56:04 Office Visit Kristine Norton [facility] 1.2.840.114 350.1.13.10 4.2.7.2.686 [id number] [facility] 2022-08-11 00:00:00 2022-08-11 00:00:00 Case Management Winterevelio Kaylene Carson [facility] 1.2840.114 350.1.13.10 4.2.7.2.686 [id number] 010 [id number] [facility] 2022-08-11 00:00:00 2022-08-11 00:00:00 [facility] 1.2.840.114 350.1.13.10 4.2.7.2.686 [id number] [facility] 2022-08-07 00:00:00 2022-08-07 00:00:00 Telephone Kristine Norton [facility] 1.2.840.114 350.1.13.10 4.2.7.2.686 [id number] [facility] 2022-08-07 00:00:00 2022-08-07 00:00:00 Transition of Care Shayy Hernandez 1.840.114 350.1.13.10 4.2.7.2.686 [id number] [facility] 2022-08-06 14:00:00 2022-08-06 14:00:00 Outpatient R CHARAN ZEPEDA [facility] [id number] [facility] 2022-08-05 08:02:00 2022-08-06 09:15:00 Outpatient R RUFINASANTOS LOPEZKI [facility] ARMEN [id number] [facility] 2022-08-05 08:02:00 2022-08-06 09:15:00 Hospital Encounter RufinaKristine lopez [facility] 1.2840.114 350.1.13.10 4.2.7.2.686 [id number] 081 [id number] [facility] 2022-08-05 08:02:00 2022-08-06 09:15:00 Outpatient R RUFINASANTOS LOPEZKI [facility] [id number] [facility] 2022-08-06 00:00:00 2022-08-06 00:00:00 Telephone Oscar Kristine [facility] 1.840.114 350.1.13.10 4.2.7.2.686 [id number] [facility] 2022-08-05 09:00:00 2022-08-05 23:59:00 Hospital Encounter RufinaSantos lopezki Bruce [facility] 1.840.114 350.1.13.10 4.2.7.2.686 [id number] [facility] 2022-08-05 09:00:00 2022-08-05 12:40:00 Surgery Kristine Norton [facility] 1.2840.114 350.1.13.10 4.2.7.2.686 [id number] [facility] 2022-08-01 10:00:00 2022-08-01 10:00:00 Outpatient R KRISTINE NORTON [facility] [id number] [facility] 2022-07-30 08:50:51 2022-07-30 23:59:00 Hospital Encounter Kristine sanchez [facility] 1.114 350.1.13.10 4.2.7.2.686 [id number] [facility] 2022-07-30 14:15:00 2022-07-30 14:15:00 Outpatient R KRISTINE NORTON [facility] [id number] [facility] 2022-07-30 08:48:02 2022-07-30 08:49:00 Hospital Encounter Kristine Norton [facility] .114 350.1.13.10 4.2.7.2.686 [id number] [facility] 2022-07-30 08:48:02 2022-07-30 08:49:00 Outpatient R KRISTINE NORTON [facility] [id number] [facility] 2022-07-30 08:30:00 2022-07-30 08:47:00 Hospital Encounter Kristine Norton [facility] ..114 350.1.13.10 4.2.7.2.686 [id number] [facility] 2022-07-09 14:20:00 2022-07-09 15:10:57 Outpatient R CHARAN ZEPEDA [facility] [id number] [facility] 2022-07-09 14:20:00 2022-07-09 15:10:57 [facility] 1.84.114 350.1.13.10 4.2.7.2.686 [id number] [facility] 2022-07-09 14:20:00 2022-07-09 15:10:57 Outpatient R CHARAN ZEPEDA [facility] [id number] [facility] 2022-07-09 14:20:00 2022-07-09 14:20:00 Outpatient R RORO ZEPEDAIHA [facility] [id number] [facility] 2022-07-08 10:20:00 2022-07-08 11:00:25 Outpatient R RANDY [facility] [id number] [facility] 2022-07-08 10:20:00 2022-07-08 11:00:25 Office Visit Randy [facility] 1.2.840.114 350.1.13.10 4.2.7.2.686 [id number] [facility] 2022-07-07 00:00:00 2022-07-07 00:00:00 Telephone Kristine Norton [facility] 1..840.114 350.1.13.10 4.2.7.2.686 [id number] [facility] 2022-07-03 12:19:18 2022-07-03 23:59:00 Outpatient R KRISTINE NORTON [facility] [id number] [facility] 2022-07-03 12:19:18 2022-07-03 23:59:00 Outpatient R KRISTINE NORTON [facility] [id number] [facility] 2022-07-03 12:19:18 2022-07-03 23:59:00 Outpatient R KRISTINE NORTON [facility] [id number] [facility] 2022-07-03 12:19:18 2022-07-03 23:59:00 Outpatient R KRISTINE NORTON [facility] [id number] [facility] 2022-07-03 12:00:00 2022-07-03 23:59:00 [facility] Encounter Kristine Norton [facility] 1.2.840.114 350.1.13.10 4.2.7.2.686 [id number] [facility] 2022-07-03 12:19:18 2022-07-03 12:19:18 Outpatient Taylor KRISTINE NORTON [facility] [id number] [facility] 2022-07-03 00:00:00 2022-07-03 00:00:00 [facility] 1.2.840.114 350.1.13.10 4.2.7.2.686 [id number] [facility] 2022-07-03 00:00:00 2022-07-03 00:00:00 Telephone Lavon Eric [facility] 1.2.840.114 350.1.13.10 4.2.7.2.686 [id number] [facility] 2022-06-30 00:00:00 2022-06-30 00:00:00 Outpatient KRISTINE YEPEZ [facility] [id number] [facility] 2022-06-30 00:00:00 2022-06-30 00:00:00 Outpatient KRISTINE YEPEZ [facility] [id number] [facility] [facility] 2022-06-30 00:00:00 2022-06-30 00:00:00 Outpatient KRISTINE YEPEZ [facility] [id number] [facility] 2022-06-30 00:00:00 2022-06-30 00:00:00 Outpatient KRISTINE YEPEZ [facility] [id number] [facility] 2022-06-30 00:00:00 2022-06-30 00:00:00 Telephone [facility] 1.2.840.114 350.1.13.10 4.2.7.2.686 [id number] [facility] 2022-06-27 00:00:00 2022-06-27 00:00:00 Telephone Kristine Norton [facility] 1.2.840.114 350.1.13.10 4.2.7.2.686 [id number] [facility] 2022-06-27 00:00:00 2022-06-27 00:00:00 Telephone Lavon Ericsa [facility] 1.2.840.114 350.1.13.10 4.2.7.2.686 [id number] [id number] [facility] 2022-06-25 08:11:52 2022-06-25 23:59:00 Hospital Encounter Lavon Eric [facility] 1.2.840.114 350.1.13.10 4.2.7.2.686 [id number] [facility] 2022-06-25 08:11:52 2022-06-25 23:59:00 Outpatient R LAVON ERIC [facility] [id number] [facility] 2022-06-25 08:11:52 2022-06-25 23:59:00 Outpatient LAVON VANN [facility] [id number] [facility] 2022-06-25 08:20:00 2022-06-25 10:47:11 Outpatient R CHARAN ZEPEDA [facility] [id number] [facility] 2022-06-25 08:20:00 2022-06-25 10:47:11 Outpatient R CHARAN ZEPEDA [facility] [id number] [facility] 2022-06-25 08:20:00 2022-06-25 10:47:11 Office Visit Charan Zepeda BUILDING 1.2.840.114 350.1.13.10 4.2.7.2.686 [id number] [facility] 2022-06-17 14:00:00 2022-06-17 16:23:32 Outpatient R SANTOS NORTONKI [facility] [id number] [facility] 2022-06-17 14:00:00 2022-06-17 16:23:32 Telemedici ne Visit Rufinajohn Kristine [facility] BUILDING 1..840.114 350.1.13.10 4.2.7.2.686 [id number] [facility] 2022-06-17 14:00:00 2022-06-17 16:23:32 Outpatient R RUFINASANTOS LOPEZKI [facility] [id number] [facility] 2022-06-17 14:00:00 2022-06-17 16:23:32 Outpatient R RUFINAJOHNKRISTINE [facility] [id number] [facility] 2022-06-17 14:00:00 2022-06-17 16:23:32 Outpatient R KRISTINE NORTON [facility] [id number] [facility] 2022-06-13 00:00:00 2022-06-13 00:00:00 Tati Sanchez [facility] 1..840.114 350.1.13.10 4.2.7.2.686 [id number] [id number] [facility] 2022-06-11 00:00:00 2022-06-11 00:00:[address] [facility] BUILD[facility] 1..840.114 350.1.13.10 4.2.7.2.686 [id number] [facility] 2022-06-11 00:00:00 2022-06-11 00:00:00 Case Management Lavon Eric BUILDING 1.2840.114 350.1.13.10 4.2.7.2.686 [id number] [facility] 2022-06-10 08:21:00 2022-06-10 12:51:00 Outpatient R KRISTINE NORTON [facility] [id number] [facility] 2022-06-10 08:21:00 2022-06-10 12:51:00 Hospital Encounter RufinajohnKristine [facility] 1.2840.114 350.1.13.10 4.2.7.2.686 [id number] [facility] 2022-06-10 08:21:00 2022-06-10 12:51:00 Outpatient R KRISTINE NORTON [facility] [id number] [facility] 2022-06-10 09:25:00 2022-06-10 11:45:00 Surgery RufinaSantos lopezki [facility] 1.2840.114 350.1.13.10 4.2.7.2.686 [id number] [id number] [facility] 2022-06-10 00:00:00 2022-06-10 00:00:00 Orders Only Doctor Unassigned, Jacobus [facility] 1.840.114 350.1.13.10 4.2.7.2.686 [id number] [facility] 2022-06-09 11:30:00 2022-06-09 11:45:00 Laboratory Only Only, Adc Test BimalKristine sanchez [facility] 1.2840.114 350.1.13.10 4.2.7.2.686 [id number] [facility] 2022-06-09 11:30:00 2022-06-09 11:30:00 Outpatient R KRISTINE NORTON [facility] [id number] [facility] 2022-06-03 14:00:00 2022-06-03 14:58:24 Outpatient R KRISTINE NORTON [facility] [id number] [facility] 2022-06-03 14:00:00 2022-06-03 14:58:24 Office Visit Kristine Norton [facility] BUILDING 1.2.840.114 350.1.13.10 4.2.7.2.686 [id number] [facility] 2022-06-03 14:00:00 2022-06-03 14:58:24 Outpatient R KRISTINE NORTON [facility] [id number] [facility] 2022-06-03 14:00:00 2022-06-03 14:58:24 Outpatient R KRISTINE NORTON [facility] [id number] [facility] 2022-06-03 14:00:00 2022-06-03 14:58:24 Outpatient R KRISTINE NORTON [facility] [id number] [facility] 2022-06-03 00:00:00 2022-06-03 00:00:00 Prep For Surgery Kristine Norton [facility] 1..840.114 350.1.13.10 4.2.7.2.686 [id number] [facility] 2022-06-03 00:00:00 2022-06-03 00:00:00 Orders Only Doctor Unassigned, Jacobus [facility] 1.0.114 350.1.13.10 4.2.7.2.686 [id number] 009 [id number] [facility] 2022-05-27 00:00:00 2022-05-27 00:00:00 Orders Only Doctor Unassigned, Jacobus [facility] 1.2840.114 350.1.13.10 4.2.7.2.686 [id number] 009 [id number] [facility] 2022-05-22 09:10:41 2022-05-22 23:59:00 [facility] 1.2.840.114 350.1.13.10 4.2.7.2.686 [id number] [facility] 2022-05-22 09:10:00 2022-05-22 09:10:00 Hospital En[facility] 1.2.840.114 350.1.13.10 4.2.7.2.686 [id number] [facility] 2022-05-22 09:09:11 2022-05-22 09:09:11 Hospital Encounter [facility] Kristine [facility] 1.2.840.114 350.1.13.10 4.2.7.2.686 [id number] [facility] 2022-05-22 09:09:11 2022-05-22 09:09:11 Outpatient R KRISTINE NORTON [facility] [id number] [facility] 2022-05-22 09:10:21 2022-05-22 09:08:00 Outpatient R KRISTINE NORTON [facility] [id number] [facility] 2022-05-22 09:00:00 2022-05-22 09:08:00 Hospital [facility] 1.2.840.114 350.1.13.10 4.2.7.2.686 [id number] [facility] 2022-05-22 00:00:00 2022-05-22 00:00:00 Outpatient R KRISTINE NORTON [facility] [id number] [facility] 2022-05-22 00:00:00 2022-05-22 00:00:00 Telephone Kristine Norton [facility] 1.2840.114 350.1.13.10 4.2.7.2.686 [id number] [facility] 2022-05-19 00:00:00 2022-05-19 00:00:00 Kisha PatelWesCody [facility] 1.284.114 350.1.13.10 4.2.7.2.686 [id number] [facility] 2022-05-14 07:51:49 2022-05-14 23:59:00 Outpatient R NALINI EVANS [facility] [id number] [facility] 2022-05-14 07:51:49 2022-05-14 23:59:00 Hospital Encounter Nalini Evans [facility] 1.2840.114 350.1.13.10 4.2.7.2.686 [id number] [facility] 2022-05-14 07:51:49 2022-05-14 07:51:49 Outpatient R NALINI EVANS [facility] [id number] [facility] 2022-05-14 00:00:00 2022-05-14 00:00:00 Orders Only Doctor Unassigned, Jacobus [facility] 1.284.114 350.1.13.10 4.2.7.2.686 [id number] [facility] 2022-05-14 00:00:00 2022-05-14 00:00:00 Letter (Out) Doctor Unassigned, Jacobus [facility] 1.284.114 350.1.13.10 4.2.7.2.686 [id number] 044 [id number] [facility] 2022-05-13 14:00:00 2022-05-13 14:51:28 Office Visit Oscar Kristine Bruce [facility] BUILDING 1.84.114 350.1.13.10 4.2.7.2.686 [id number] [facility] 2022-05-13 14:00:00 2022-05-13 14:51:28 Outpatient R KRISTINE NORTON [facility] [id number] [facility] 2022-05-13 14:00:00 2022-05-13 14:51:28 Outpatient R KRISTINE NORTON [facility] [id number] [facility] 2022-05-13 14:00:00 2022-05-13 14:51:28 Outpatient R KRISTINE NORTON [facility] [id number] [facility] 2022-05-13 14:00:00 2022-05-13 14:51:28 Outpatient R KRISTINE NORTON [facility] [id number] [facility] 2022-05-13 14:00:00 2022-05-13 14:51:28 Outpatient R KRISTINE NORTON [facility] [id number] [facility] 2022-05-13 00:00:00 2022-05-13 00:00:00 Orders Only Doctor Unassigned, Jacobus [facility] 1.84.114 350.1.13.10 4.2.7.2.686 [id number] [facility] 2022-05-12 00:00:00 2022-05-12 00:00:00 Telephone Tati Alexander [facility] 1.84.114 350.1.13.10 4.2.7.2.686 [id number] [facility] 2022-05-12 00:00:00 2022-05-12 00:00:[address] 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 [id number] [facility] 2022-05-07 14:15:00 2022-05-07 14:15:00 Outpatient NALINI JAMESON [facility] [id number] [facility] 2022-05-07 14:15:00 2022-05-07 14:15:00 Outpatient R NALINI EVANS [facility] [id number] [facility] 2022-05-07 00:00:00 2022-05-07 00:00:00 Orders Only Doctor Unassigned, Jacobus [facility] 1..840.114 350.1.13.10 4.2.7.2.686 [id number] [facility] 2022-05-06 12:50:59 2022-05-06 23:59:00 Outpatient TATI HAWKINS [facility] [id number] [facility] 2022-05-06 12:50:59 2022-05-06 23:59:00 Outpatient TATI HAWKINS [facility] [id number] [facility] 2022-05-06 12:50:59 2022-05-06 23:59:00 Outpatient TATI HAWKINS [facility] [id number] [facility] 2022-05-06 12:50:59 2022-05-06 23:59:00 Outpatient R MADONNATATI Boykin [facility] [id number] [facility] 2022-05-06 12:50:59 2022-05-06 23:59:00 Hospital Encounter Catherine Tati [facility] 1.2.840.114 350.1.13.10 4.2.7.2.686 [id number] [facility] 2022-05-06 12:50:29 2022-05-06 23:59:00 Outpatient R CATHERINETATI [facility] [id number] [facility] 2022-05-06 12:50:29 2022-05-06 23:59:00 Outpatient R MADONNATATI Boykin [facility] [id number] [facility] 2022-05-06 12:50:29 2022-05-06 23:59:00 Hospital Encounter Catherine Tati [facility] 1.2.840.114 350.1.13.10 4.2.7.2.686 [id number] [facility] 2022-04-21 00:00:00 2022-04-21 00:00:00 Telephone Catherine Tati [facility] 1.2.840.114 350.1.13.10 4.2.7.2.686 [id number] [facility] 2022-04-18 13:26:01 2022-04-18 23:59:00 Hospital Encounter Catherine Tati [facility] 1.2.840.114 350.1.13.10 4.2.7.2.686 [id number] [facility] 2022-04-18 13:25:46 2022-04-18 13:25:46 Outpatient R CATHERINEAIMEEIE [facility] [id number] [facility] 2022-04-18 13:25:46 2022-04-18 13:25:46 Outpatient R MADONNAAIMEE BoykinIE [facility] [id number] [facility] 2022-04-18 13:25:46 2022-04-18 13:25:46 Hospital Encounter Tati Alexander [facility] 1.84.114 350.1.13.10 4.2.7.2.686 [id number] [facility] 2022-04-16 13:30:00 2022-04-16 13:30:00 Outpatient R JEANNINE SOSA [facility] [id number] [facility] 2022-04-09 00:00:00 2022-04-09 00:00:00 Telephone MadonnaTati boykin [facility] BUILDING 1.840.114 350.1.13.10 4.2.7.2.686 [id number] [facility] 2022-03-31 00:00:00 2022-03-31 00:00:00 Telephone MadonnaTati boykin [facility] BUILDING 1.84.114 350.1.13.10 4.2.7.2.686 [id number] [facility] 2022-03-31 00:00:00 2022-03-31 00:00:00 Telephone MadonnaTati boykin [facility] OFFICE BUILDING 1.284.114 350.1.13.10 4.2.7.2.686 [id number] [facility] 2022-03-28 13:04:13 2022-03-28 23:59:00 Outpatient R TATI ALEXANEDR [facility] [id number] [facility] 2022-03-28 13:00:00 2022-03-28 23:59:00 Hospital Encounter Tati Alexander [facility] 1.84.114 350.1.13.10 4.2.7.2.686 [id number] [facility] 2022-03-27 11:00:00 2022-03-27 11:25:10 Outpatient R TATI ALEXANDER 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 [id number] [facility] 2022-03-27 00:00:00 2022-03-27 00:00:00 Telephone MadonnaTati boykin [facility] BUILDING 1.2.840.114 350.1.13.10 4.2.7.2.686 [id number] [facility] 2022-03-19 10:00:00 2022-03-19 12:04:32 Outpatient R TATI ALEXANDER [facility] [id number] [facility] 2022-03-19 10:00:00 2022-03-19 10:30:00 Office Visit Tati Alexander [facility] MED[facility] OFFICE BUILDING 1.2.840.114 350.1.13.10 4.2.7.2.686 [id number] [facility] 2022-03-19 10:00:00 2022-03-19 10:00:00 Outpatient R TATI ALEXANDER [facility] [id number] [facility] 2022-02-05 00:00:00 2022-02-05 00:00:00 Orders Only Doctor Unassigned, Jacobus [facility] 1.2.840.114 350.1.13.10 4.2.7.2.686 [id number] [facility] 2022-01-15 00:00:00 2022-01-15 00:00:00 Telephone Paul Ortega [facility] BUILDING 1.840.114 350.1.13.10 4.2.7.2.686 [id number] [facility] 2021-11-13 00:00:00 2021-11-13 00:00:00 Orders Only Doctor Unassigned, Jacobus [facility] 1.2840.114 350.1.13.10 4.2.7.2.686 [id number] [facility] 2021-11-12 00:00:00 2021-11-12 00:00:00 Telephone Paul Ortega [facility] MEDICAL OFFICE BUILDING 1.840.114 350.1.13.10 4.2.7.2.686 [id number] [facility] 2021-11-07 00:00:00 2021-11-07 00:00:00 Telephone Messi Washington [facility] MEDICAL OFFICE BUILDING 1.840.114 350.1.13.10 4.2.7.2.686 [id number] [facility] 2021-09-23 14:30:00 2021-09-23 15:04:26 Outpatient R PAUL ORTEGA [facility] [id number] [facility] 2021-09-23 14:26:28 2021-09-23 15:04:26 Office Visit Loyd Ortegadavis Forman [facility] MEDICAL OFFICE BUILDING 1.840.114 350.1.13.10 4.2.7.2.686 [id number] [facility] 2021-09-19 00:00:00 2021-09-19 00:00:00 Telephone Paul Ortega [facility] Medical Office Building 1.2840.114 350.1.13.10 4.2.7.2.686 [id number] [facility] 2021-09-18 00:00:00 2021-09-18 00:00:00 Orders Only Doctor Unassigned, Jacobus [facility] 1..114 350.1.13.10 4.2.7.2.686 [id number] [facility] 2021-09-06 00:00:00 2021-09-06 00:00:00 Telephone Messi Washington [facility] Medical Office Building 1.840.114 350.1.13.10 4.2.7.2.686 [id number] [facility] 2021-09-02 16:00:00 2021-09-02 16:00:00 Outpatient R PAUL ORTEGA [facility] [id number] [facility] 2021-09-02 16:00:00 2021-09-02 16:00:00 Outpatient R PAUL ORTEGA [facility] [id number] [facility] 2021-09-02 14:42:50 2021-09-02 15:05:38 Office Visit Paul Ortega [facility] Medical Office Building 1.2840.114 350.1.13.10 4.2.7.2.686 [id number] [facility] 2021-09-02 00:00:00 2021-09-02 00:00:00 Orders Only Doctor Unassigned, Jacobus [facility] 1.284.114 350.1.13.10 4.2.7.2.686 [id number] [facility] 2021-08-30 00:00:00 2021-08-30 00:00:00 Telephone OrtegaPaul mercado [facility]?Uziel [facility] Medical Office Building 1.2.840.114 350.1.13.10 4.2.7.2.686 [id number] [facility] 2021-08-22 13:15:00 2021-08-22 13:15:00 Outpatient MESSI BENDER [facility] [id number] [facility] 2021-08-22 13:15:00 2021-08-22 13:15:00 Outpatient Taylor [place] MESSI [facility] [id number] [facility] 2021-08-22 09:34:32 2021-08-22 10:07:16 Office Visit Paul Ortega [facility] 1.2.840.114 350.1.13.10 4.2.7.2.686 [id number] [facility] 2021-08-22 09:45:00 2021-08-22 09:45:00 Outpatient R PAUL ORTEGA [facility] [id number] [facility] 2021-08-21 00:00:00 2021-08-21 00:00:00 Orders Only Doctor Unassigned, Jacobus [facility] 1..840.114 350.1.13.10 4.2.7.2.686 [id number] [facility] 2021-08-06 00:00:00 2021-08-06 00:00:00 [facility] Medical Office Building 1.2.840.114 350.1.13.10 4.2.7.2.686 [id number] [facility] 2021-07-31 13:20:00 2021-07-31 23:59:00 Outpatient MESSI BENDER [facility] [id number] [facility] 2021-07-31 13:20:00 2021-07-31 23:59:00 Outpatient R PADMIIN MESSI [facility] [id number] [facility] 2021-07-31 13:20:00 2021-07-31 23:59:00 Hospital Encounter Messi [place] [facility] Medical Office Building 1.2.840.114 350.1.13.10 4.2.7.2.686 [id number] [facility] 2021-07-31 13:20:00 2021-07-31 23:59:00 Outpatient R MESSI WASHINGTON [facility] [id number] [facility] 2021-07-31 13:09:07 2021-07-31 14:05:14 Office Visit Messi [place] Craig L [facility] Medical Office Building 1.2.840.114 350.1.13.10 4.2.7.2.686 [id number] [facility] 2021-07-31 13:15:00 2021-07-31 13:15:00 Outpatient PAUL BURGESS [facility] [id number] [facility] 2021-07-31 13:15:00 2021-07-31 13:15:00 Outpatient PAUL BURGESS [facility] [id number] [facility] 2021-07-31 13:15:00 2021-07-31 13:15:00 Outpatient PAUL BURGESS [facility] [id number] [facility] 2021-07-18 00:00:00 2021-07-18 00:00:00 Orders Only Doctor Unassigned, Jacobus [facility] 1..840.114 350.1.13.10 4.2.7.2.686 [id number] [facility] 2021-07-18 00:00:00 2021-07-18 00:00:00 Orders Only Doctor Unassigned, Jacobus [facility] 1.2.840.114 350.1.13.10 4.2.7.2.686 [id number] [facility] 2021-07-15 00:00:00 2021-07-15 00:00:00 Telephone Paul Ortega [facility] memo Julian 1.2.840.114 350.1.13.10 4.2.7.2.686 [id number] [facility] 2021-07-08 00:00:00 2021-07-08 00:00:00 Telephone Paul Ortega [facility] Special memo Julian 1.2.840.114 350.1.13.10 4.2.7.2.686 [id number] [facility] 2021-07-03 13:11:39 2021-07-03 23:59:00 Outpatient PAUL ORTEGA [facility] [id number] [facility] 2021-07-03 13:11:39 2021-07-03 23:59:00 Hospital Encounter Paul Ortega [facility] Surgical Special memo Jjton 1.2.840.114 350.1.13.10 4.2.7.2.686 [id number] [facility] 2021-07-03 13:11:39 2021-07-03 23:59:00 Outpatient PAUL ORTEGA [facility] [id number] [facility] 2021-07-03 12:50:00 2021-07-03 13:42:06 Office Visit Paul Ortega [facility] memo Jjton 1.2.840.114 350.1.13.10 4.2.7.2.686 [id number] [facility] 2021-07-03 13:00:00 2021-07-03 13:00:00 Outpatient MESSI BENDER [facility] [id number] [facility] 2021-07-03 13:00:00 2021-07-03 13:00:00 Outpatient MESSI BENDER [facility] [id number] [facility] 2021-06-28 00:00:00 2021-06-28 00:00:00 Orders Only Doctor Unassigned, Jacobus [facility] 1.2.840.114 350.1.13.10 4.2.7.2.686 [id number] [facility] 2021-06-05 13:45:11 2021-06-05 14:00:11 Office Visit [facility] Surgical Specialti memo Julian 1.2.840.114 350.1.13.10 4.2.7.2.686 [id number] [facility] 2021-06-05 13:45:00 2021-06-05 13:45:00 Outpatient Taylor [facility] [id number] [facility] 2021-05-31 00:00:00 2021-05-31 00:00:00 Orders Only Doctor Unassigned, Jacobus [facility] 1.2.840.114 350.1.13.10 4.2.7.2.686 [id number] [facility] 2021-05-22 13:44:13 2021-05-22 23:59:00 Hospital Encounter Paul Ortega [facility] Surgical Special memo Julian 1.2.840.114 350.1.13.10 4.2.7.2.686 [id number] [facility] 2021-05-22 13:44:13 2021-05-22 23:59:00 Outpatient R PAUL ORTEGA [facility] [id number] [facility] 2021-05-22 13:07:08 2021-05-22 13:43:00 Outpatient R PAUL ORTEGA [facility] [id number] [facility] 2021-05-22 13:07:08 2021-05-22 13:43:00 Hospital Encounter Paul Ortega [facility] Surgical Specialti memo Diez 1.2.840.114 350.1.13.10 4.2.7.2.686 [id number] [facility] 2021-05-22 13:15:00 2021-05-22 13:15:00 Outpatient R PADMINI MESSI [facility] [id number] [facility] 2021-05-22 12:59:45 2021-05-22 13:14:45 Office Visit Messi [facility] Surgical Specialti memo Diez 1.2.840.114 350.1.13.10 4.2.7.2.686 [id number] [facility] 2021-05-08 13:00:11 2021-05-08 13:30:42 Office Visit Paul Ortega [facility] Surgical Specialkatharine Diez 1.2.840.114 350.1.13.10 4.2.7.2.686 [id number] [facility] 2021-05-08 13:15:00 2021-05-08 13:15:00 Outpatient R PAUL ORTEGA [facility] [id number] [facility] 2021-05-08 00:00:00 2021-05-08 00:00:00 Orders Only Doctor Unassigned, Jacobus [facility] 1.2.840.114 350.1.13.10 4.2.7.2.686 [id number] [facility] 2021-04-24 12:52:25 2021-04-24 13:31:40 Office Visit Paul Ortega [facility] Surgical Specialti memo Diez 1.2.840.114 350.1.13.10 4.2.7.2.686 [id number] [facility] 2021-04-24 13:00:00 2021-04-24 13:00:00 Outpatient R PAUL ORTEGA [facility] [id number] [facility] 2021-04-17 14:06:01 2021-04-17 23:59:00 Hospital Encounter Paul Ortega [facility] Surgical Specialti es Julian 1.2.840.114 350.1.13.10 4.2.7.2.686 [id number] [facility] 2021-04-17 14:06:01 2021-04-17 23:59:00 Outpatient PAUL ORTEGA [facility] [id number] [facility] 2021-04-17 13:24:29 2021-04-17 14:35:52 Office Visit Paul Ortega [facility] Surgical Specialti es Julian 1.2.840.114 350.1.13.10 4.2.7.2.686 [id number] [facility] 2021-04-17 13:15:00 2021-04-17 13:15:00 Outpatient R PAUL ORTEGA [facility] [id number] [facility] Results Test Description Test Time Test Comments Results Result Co mments Source [facility] [id number] 22:22:32 FULL RESULT: Examination: CT TRAUMA HEAD WO CONTRAST, CT TRAUMA CERVICAL SPINE WOCONTRAST on 11/02/2024 3:35 PM Clinical Indication: fall Comparison: 01/24/2023 Technique: Noncontrast imaging was obtained through the brain and cervicalspine. Findings: White matter microvascular ischemic changes are redemonstrated inthe hemispheres. There is no hemorrhage or other clearly acute or traumaticintracranial process. With respect to the cervical spine, there are multilevel degenerativechanges but no fracture or traumatic malalignment. [facility] WO [id number] 22:22:32FULL RESULT: Examination: CT TRAUMA HEAD WO CONTRAST, CT TRAUMA CERVICAL SPINE WOCONTRAST on 11/02/2024 3:35 PM Clinical Indication: fall Comparison: 01/24/2023 Technique: Noncontrast imaging was obtained through the brain and cervicalspine. Findings: White matter microvascular ischemic changes are redemonstrated inthe hemispheres. There is no hemorrhage or other clearly acute or traumaticintracranial process. With respect to the cervical spine, there are multilevel degenerativechanges but no fracture or traumatic malalignment.[facility] [id number] 21:57:29* Test Item Value Reference Range Interpretation Comme nts TROPONIN I (test code = 0527160287) 0.003 ng/mL <=0.034 ROBERT (test code = ROBERT) Reference (Normal) Range (defined by the 99th percentile reference limit): <= 0.034 ng/mL Note: Cardiac troponin begins to rise 3-4 hours after the onset of ischemia. Repeat in 4-6 hours if the sample was drawn within 3-4 hours of the onset of the symptom and found normal. Diagnosis of myocardial injury is made with acute changes in cTn concentrations with at least one serial sample above the 99th percentile upper reference limit (URL), taken together with the patient's clinical presentation. Biotin has been reported to cause a negative bias, interpret results relative to patient's use of biotin. Lab Interpretation (test code = 53326-0) Normal [facility]. METABOLIC PANEL (07390)2024-11-02 21:45:45* Test Item Value Reference Range Interpretation Comme nts NA (test code = 7899234447) 144 mmol/L 135-145 K (test code = 0648911826) 4.0 mmol/L 3.5-5.0 CL (test code = 8971506574) 110 mmol/L 98-108 H CO2 TOTAL (test code = 9841001215) 26 mmol/L 23-31 AGAP (test code = 4908100760) 8 2-16 BUN (test code = 1868830523) 16 mg/dL 7-23 GLUCOSE (test code = 7975021422) 80 mg/dL 70-110 CREATININE (test code = 2160-0) 0.99 mg/dL 0.50-1.04 TOTAL BILI (test code = 4336333595) 0.8 mg/dL 0.1-1.1 CALCIUM (test code = 5241969547) 9.4 mg/dL 8.6-10.6 T PROTEIN (test code = 3773303468) 8.7 g/dL 6.3-8.2 H ALBUMIN (test code = 0047938164) 4.1 g/dL 3.5-5.0 ALK PHOS (test code = 0349557378) 90 U/L 34-122 ALTv (test code = 1742-6) 46 U/L 5-35 H AST(SGOT) (test code = 8071808354) 86 U/L 13-40 H eGFR (test code = 17680-2) 61.9 mL/min/1.73m2 CKD-EPI eGFR (2020). Assuming creatinine has been stable day-to-day for at least three months, the eGFR indicates Category G2 (60 - 89 mL/min/1.73 m2) Lab Interpretation (test code = 63674-1) Abnormal [facility] 21:45:45* Test Item Value Reference Range Interpretation Comme nts MAGNESIUM (test code = 0769935129) 1.9 mg/dL 1.7-2.4 Lab Interpretation (test cod e = 27125-4) Normal [facility]2024-08-18 17:01:43 HISTORY: Osteopenia. TECHNIQUE: Bone density estimation is done using DEXA scan, over the righthip and lumbar spines. FINDINGS: Details of the results are enclosed for your review. The summaryis as follows. RIGHT HIP:BMD value is 0.900 gm/sq cm, with T-score of - 0.9. Estimated BMD in theneck is 0.791 g/sq cm with T score of -1.8. LEFT HIP:BMD value is 0.861 gm/sq cm, with T-score of -1.2. Estimated BMD in theneck is 0.817 g/sq cm with T score of -1.6. LUMBAR SPINES:Average BMD value from L1 through L3 is 1.280 gm/sq cm, with T-score 0.5. CONCLUSION: Osteopenia. ASSESSMENT: WHO-definitions: T-score normal: +/- 1 SD around the meanosteopenia: >1 to 2.4 SD below the meanosteoporosis: >2.5 SD below the meanFracture risk doubles for each 1.5 SD below the mean.[facility]BI DEREK GUIDED CORE BREAST BIOPSY [id number] 20:14:57 Examination:BI DEREK GUIDED CORE BREAST BIOPSY LEFT The procedure was explained to the patient including benefits and alternatives. ?The risks, including but not limited to infection and bleeding, were reviewed and the patient agreed to undergo the procedure, signing the consent form. ?Timeout was performed. History:Patient is a 68 year old year old female and is seen for: ? Left breast calcifications, upper central middle depth. ?BI-RADS 4B. Comparisons: 07/06/2024 BI DIAGNOSTIC TOMOSYNTHESIS LEFT, 07/31/2023 BI SCREENING TOMOSYNTHESIS LEFT, 04/18/2022 BI DIAGNOSTIC TOMOSYNTHESIS BILATERAL, 03/31/2008 MAMMOGRAM, UNILATERAL-DIAGNOSTIC, and 07/07/2007 DIGITAL MAMMOGRAM, BILATERAL The patient w as upright position for the biopsy. ?The area of interest was localized and targeted via superior approach utilizing digital spot mammography with computer calculation. After antiseptic preparation the skin puncture site was infiltrated with lidocaine. ?Deep local anesthesia about the biopsy site was administered using lidocaine with epinephrine. ?A 9 gauge Eviva vacuum-assisted automated core biopsy needle was inserted to the computer determined depth, and stereotactic images showed satisfactory relationship of the needle position to the target. ?Tissue cores were obtained. ?Digital specimenradiography showed calcifications within some of the cores. ?A tissue marker Top-Hat clip was deployed through the needle, and the needle was withdrawn. Post biopsy mammogram confirmed the TopHat clip at the biopsy site. Recommendation:Pending pathology results - Left Savana Jean DO, personally reviewed the study and agree with the resident's/fellow's report.Savana Jean DO as teaching physician, was present during either the entire procedure and/or during the goode components.[facility] W/O DIFF, WITH [id number] 00:00:00* Test Item Value Reference Range Interpretation Comme nts HEMATOCRIT (test code = 68839-0) 36.4 % See_Comment [Automated [facility] ge] The system which generated this result transmitted reference range: 34.0-45.0 %. The reference range was not used to interpret this result as normal/abnormal. HEMOGLOBIN (test code = 718-7) 11.3 G/DL See_Comment L [Automated messa ge] The system which generated this result transmitted reference range: 11.5-15.5 G/DL. The reference range was not used to interpret this result as normal/abnormal. MCH (test code = 42672-4) 26.7 PG See_Comment [Automated messa ge] The system which generated this result transmitted reference range: 25.0-33.0 PG. The reference range was not used to interpret this result as normal/abnormal. MCHC (test code = 91407-6) 31.0 G/DL See_Comment [Automated messa ge] The system which generated this result transmitted reference range: 31.0-36.0 G/DL. The reference range was not used to interpret this result as normal/abnormal. MCV (test code = 66675-0) 86.1 fL See_Comment [Automated messa ge] The system which generated this result transmitted reference range: 80.0-99.0 fL. The reference range was not used to interpret this result as normal/abnormal. PLATELET COUNT (test code = 12332-9) 260 K/UL See_Comment [Automated messa ge] The system which generated this result transmitted reference range: 130-400 K/UL. The reference range was not used to interpret this result as normal/abnormal. RBC (test code = 31762-1) 4.23 M/UL See_Comment [Automated messa ge] The system which generated this result transmitted reference range: 3.80-5.40 M/UL. The reference range was not used to interpret this result as normal/abnormal. WBC (test code = 44092-3) 4.8 K/UL See_Comment [Automated messa ge] The system which generated this result transmitted reference range: 3.5-11.0 K/UL. The reference range was not used to interpret this result as normal/abnormal. XR WRIST <3 VW [id number] 18:42:58HISTORY: ?Pain. FINDINGS: AP, lateral, oblique views of left wrist showed no acute fractureor dislocation. Mild soft tissue swelling along the wrist noted.Scapholunate joint space is wider than normal which could be a sign ofremote ligamentous injury. A benign 4.6 mm cyst noted in the lunate bone. CONCLUSIONS: No acute fracture left wrist. Wider than normal scapholunatejoint space noted, likely secondary to remote ligamentous injury.[facility] Hospital[facility]ansthoracic echo (TTE)2024-04-26 21:38:48* Test Item Value Reference Range Interpretation Comme nts Height (test code = 5145932473) 66 in Weight (test code = 1410873887) 180 lbs Systolic BP (test code = 5564375192) 141 mmHg Diastolic BP (test code = 9765700852) 92 mmHg Heart Rate (test code = 2336951730) 62 bpm BSA (test code = 0909579422) 1.91 m2 LV GLS Endo Peak A2C () (test code = 8223476267) -14.60 % LV GLS Endo Peak A3C () (test code = 2444914684) -13.50 % LV GLS Endo Peak A4C () (test code = 1485622385) -15.50 % LV GLS Endo Peak Avg () (test code = 0846459553) -14.50 % LVOT diameter (test code = 0753721353) 1.97 cm LVOT area (test code = 3300239067) 3.00 cm2 Ao root diam (test code = 7511050255) 2.80 cm Aortic root (test code = 6322544550) 2.8 cm Ao root annulus (test code = 3445416989) 2.8 cm LA size (test code = 6947318704) 4.2 cm LVIDD (test code = 1015087589) 4.50 cm Left Ventricular End Diastolic Volume by Teichholz Method (test code = 7375232) 90.8 mL IVS (test code = 0844020269) 1.59 cm Interventricular Septum Diastolic Thickness by 2D (test code = 5772411) 1.59 cm LVPWD (test code = 0877291116) 1.14 cm PW (test code = 6671160390) 1.14 cm 0.6-1.1 EF(Teich) (test code = 5721175080) 62.90 % LVIDS (test code = 6508438710) 3.00 cm Left Ventricular End Systolic Volume by Teichholz Method (test code = 6161109) 33.7 mL FS (test code = 5387252591) 34 % EF - 2D (test code = 06028052) 62.90 % TR Peak Grupo (test code = 2015519698) 272.8 cm/s Triscuspid Valve Regurgitation Peak Gradient (test code = 8588892213) 29.8 mmHg MV Peak E Grupo (test code = 7003299543) 78.4 cm/s MV Peak A Grupo (test code = 7935105073) 89.5 cm/s E/A ratio (test code = 4160637483) 0.88 ratio E wave decelartion time (test code = 2479749511) 0.22 s MR max PG (test code = 7565658092) 95.10 mm[Hg] MR max grupo (test code = 3061816928) 487.70 cm/s Mr max grupo (test code = 5298787648) 487.7 m/s MV Prop V (test code = 2223135657) 37.20 cm/s LAV(MOD-sp4) (test code = 6532767701) 49.00 mL Tapse (test code = 2975285955) 2.30 cm LVOT stroke volume (test code = 6489352852) 64.50 cm3 LVOT peak grupo (test code = 4842656625) 91.7 cm/s LVOT mn grad (test code = 0777905920) 1.8 mmHg AV LVOT peak gradient (test code = 1735494581) 3.4 mmHg LVOT peak VTI (test code = 3694195403) 21.1 cm LV V1 mean (test code = 2594676056) 63.90 cm/s Ao peak grupo (test code = 5665050319) 129.5 cm/s AV area peak grupo (test code = 1230161779) 2.2 cm2 Ao max PG (test code = 1247311123) 6.70 mm[Hg] AV peak gradient (test code = 6772264122) 6.7 mmHg LA Volume Index (BP) (test code = 4064455034) 31.1 mL/m2 LA volume (BP) (test code = 0312428017) 59.6 mL LAV(MOD-sp2) (test code = 9149545506) 54.30 mL Radiology Study observation (narrative) (test code = 74040-8) ROBERT (test code = ROBERT) ?Left?Ventricle: Left ventricle size is normal. Normal wall thickness. Normal wall motion. Normal systolic function with a visually estimated EF of 55 - 60%. Global longitudinal strain -14.5%, which is reduced. Indeterminate diastolic function. ?Tricuspid?Valve: Mild transvalvular regurgitation. Right ventricular systolic pressure is 30-35 mmHg. ?RA pressure is 0-5 mmHg. ?Pericardium: Trivial pericardial effusion present. Liam Guo MD Left VentricleLeft ventricle size is normal. Normal wall thickness. Normal wall motion. Normal systolic function with a visually estimated EF of 55 - 60%. Global longitudinal strain -14.5%, which is reduced. Indeterminate diastolic function.Right VentricleRight ventricle size is normal. Normal systolic function.Left AtriumLeft atrium size is normal.Right AtriumRight atrium size is normal.IVC/SVCIVC diameter is less than or equal to 21 mm and decreases greater than 50% during inspiration; therefore the estimated right atrial pressure is normal (~0-5 mmHg).Mitral ValveMitral valve structure is normal. Trace transvalvular regurgitation.Tricusp id ValveTricuspid valve structure is normal. Mild transvalvular regurgitation. Right ventricular systolic pressure is 30-35 mmHg. RA pressure is 0-5 mmHg.Aortic ValveTricuspid.Pulmon ic ValveValve structure is normal. Mild transvalvular regurgitation.Ascendi ng AortaNormal sized aortic root.PericardiumTrivi al pericardial effusion present.Study DetailsStudy quality was adequate. A complete echocardiogram was performed using 2D, color flow Doppler, spectral Doppler and strain. [facility]2023-[facility]-15 03:06:27* Test Item Value Reference Range Interpretation Comme nts Height (test code = 0651250881) 67 in Weight (test code = 7487416958) 190 lbs Systolic BP (test code = 8237178286) 178 mmHg Diastolic BP (test code = 0471976786) 99 mmHg Heart Rate (test code = 5144134639) 70 bpm LV GLS Endo Peak A2C () (test code = 8886995602) -15.50 % LV GLS Endo Peak A3C () (test code = 9962644587) -14.60 % LV GLS Endo Peak A4C () (test code = 6266051226) -16.80 % LV GLS Endo Peak Avg () (test code = 9134668974) -15.60 % BSA (test code = 0811876517) 1.98 m2 Ao root diam (test code = 8947261866) 2.70 cm Aortic root (test code = 8058847672) 2.7 cm Ao root annulus (test code = 7958923536) 2.7 cm LA size (test code = 9859622601) 4.3 cm LVIDD (test code = 4867168878) 4.30 cm Left Ventricular End Diastolic Volume by Teichholz Method (test code = 4364583) 81.5 mL IVS (test code = 5162027136) 0.83 cm Interventricular Septum Diastolic Thickness by 2D (test code = 4363971) 0.83 cm LVPWD (test code = 1909450526) 0.83 cm PW (test code = 0320844376) 0.83 cm 0.6-1.1 EF(Teich) (test code = 5254488107) 57.10 % LVIDS (test code = 3906022069) 3.00 cm Left Ventricular End Systolic Volume by Teichholz Method (test code = 8519595) 35.0 mL FS (test code = 8218028523) 30 % EF - 2D (test code = 65760693) 57.10 % LVOT diameter (test code = 0362010605) 2.08 cm LVOT area (test code = 9704371021) 3.40 cm2 TR Peak Grupo (test code = 0423644864) 256.7 cm/s Triscuspid Valve Regurgitation Peak Gradient (test code = 2602704900) 26.4 mmHg Pulmonic Regurgitant End Max Velocity (test code = 8705919526) 120.3 cm/s MV Prop V (test code = 9219634869) 82.50 cm/s MV Peak E Grupo (test code = 8070319741) 56.6 cm/s MV Peak A Grupo (test code = 0940294067) 78.1 cm/s E/A ratio (test code = 8323267619) 0.72 ratio E wave decelartion time (test code = 2213214182) 0.21 s LAV(MOD-sp4) (test code = 2905331363) 82.70 mL Aortic valve mean velocity (test code = 4466195243) 92.1 cm/s Ao peak grupo (test code = 0875830588) 132.0 cm/s Ao VTI (test code = 6655780082) 27.3 cm Ao max PG (test code = 8580131575) 7.00 mm[Hg] AV peak gradient (test code = 9499765033) 7.0 mmHg AV mean gradient (test code = 5844358299) 3.7 mmHg LVOT stroke volume (test code = 7216228878) 75.80 cm3 LVOT peak grupo (test code = 5411344684) 95.9 cm/s LVOT mn grad (test code = 6815377780) 2.0 mmHg AV LVOT peak gradient (test code = 4436745963) 3.7 mmHg LVOT peak VTI (test code = 9198884852) 22.3 cm AV area by cont VTI (test code = 7108202486) 2.8 cm2 AV area peak grupo (test code = 8625181058) 2.5 cm2 LV V1 mean (test code = 0951367555) 68.10 cm/s AV valve area (test code = 3439168616) 2.80 cm2 Tapse (test code = 9288236067) 2.14 cm LA Volume Index (BP) (test code = 6508944983) 43.2 mL/m2 LA volume (BP) (test code = 1274678768) 85.5 mL LAV(MOD-sp2) (test code = 4444693612) 79.90 mL Radiology Study observation (narrative) (test code = 89635-9) ROBERT (test code = ROBERT) ?Left?Ventricle: Left ventricle size is normal. Normal wall thickness. Normal wall motion. Normal systolic function with a visually estimated EF of 55 - 60%. Normal diastolic function. Global longitudinal strain: -15.6% which is reduced. ?Tricuspid?Valve: Mild transvalvular regurgitation. Right ventricular systolic pressure is 25-30 mmHg. IVC not well seen. Liam Guo MD Left VentricleLeft ventricle size is normal. Normal wall thickness. Normal wall motion. Normal systolic function with a visually estimated EF of 55 - 60%. Normal diastolic function. Global longitudinal strain: -15.6% which is reduced.Right VentricleRight ventricle size is normal. Normal systolic function.Left AtriumLeft atrium size is normal.Right AtriumRight atrium size is normal.IVC/SVCIVC not well seen.Mitral ValveMitral valve structure is normal. Trace transvalvular regurgitation.Tricusp id ValveTricuspid valve structure is normal. Mild transvalvular regurgitation. Right ventricular systolic pressure is 25-30 mmHg. IVC not well seen.Aortic ValveAortic valve structure is normal.Pulmonic ValveNot well visualized. Mild transvalvular regurgitation.Ascendi ng AortaNormal sized aortic root.PericardiumNo pericardial effusion.Study DetailsA complete echocardiogram was performed using 2D, color flow Doppler, spectral Doppler and strain. The apical, parasternal and subcostal views were obtained. [facility] Confirmation (Lab Only)2022-10-19 17:28:30* Test Item Value Reference Range Interpretation Comme nts ABO & RH (test code = 20) O Positive Performed at [facility] Laboratory [facility] [place] [address]Toll Free: [phone] No. [id number] [facility]Type and Screen - ONCE [id number] 17:25:36* Test Item Value Reference Range Interpretation Comme nts ABO & RH (test code = 20) O Positive Performed at [facility] Laboratory [facility] [id number] [place], [place] [address]Toll Free: [phone] No. [id number] IAT (test code = 1185) Negative Performed at [facility] Laboratory [facility] [place] [address]Toll Free: [phone] No. [id number] [facility] HospitalLactic Acid Whole [id number] 16:44:29* Test Item Value Reference Range Interpretation Comme nts LACTIC ACID (test code = 5938298595) 1.09 mmol/L 0.50-2.20 Lab Interpretation (test cod e = 91454-6) Normal [facility] HospitalFERRITIN [id number] 20:44:43* Test Item Value Reference Range Interpretation Comme nts FERRITIN (test code = 1546786783) 96.8 ng/mL 11.0-264.0 ROBERT (test code = ROBERT) Biotin has been reported to cause a negative bias, interpret results relative to patient's use of biotin. Lab Interpretation (test code = 56014-4) Normal [facility] HospitalIRON [id number] 20:20:18* Test Item Value Reference Range Interpretation Comme nts IRON (test code = 7050506146) 115 ug/dL 50-160 TIBC (test code = 3205423958) 367 ug/dL 250-410 % FE SAT (test code = 9530439031) 31 % 20-50 Lab Interpretation (test cod e = 99000-9) Normal [facility] HospitalHEPATIC FUNCTION PANEL (11341) (ALB,T.PRO,BILI T,BU/BC,ALT,AST,ALK PHOS)2022-05-07 20:11:20* Test Item Value Reference Range Interpretation Comme nts TOTAL BILI (test code = 5230442011) 0.5 mg/dL 0.1-1.1 BILI UNCON (test code = 4535426769) 0.3 mg/dL 0.1-1.1 BILI CONJ (test code = 6026218824) 0.0 mg/dL 0.0-0.3 T PROTEIN (test code = 4151116893) 7.8 g/dL 6.3-8.2 ALBUMIN (test code = 6871859857) 3.9 g/dL 3.5-5.0 ALK PHOS (test code = 6206591184) 76 U/L 34-122 ALTv (test code = 1742-6) 33 U/L 5-35 AST(SGOT) (test code = 8341929753) 56 U/L 13-40 H Lab Interpretation (test cod e = 89199-3) Abnormal [facility] Hospital[facility]ABOLIC PANEL (NA, K, CL, CO2, GLUCOSE, BUN, CREATININE, CA)2022-05-07 20:11:00* Test Item Value Reference Range Interpretation Comme nts NA (test code = 4016869895) 142 mmol/L 135-145 K (test code = 7820800857) 3.7 mmol/L 3.5-5.0 CL (test code = 9340047821) 105 mmol/L 98-108 CO2 TOTAL (test code = 9088055792) 31 mmol/L 23-31 AGAP (test code = 3863810207) 2-16 BUN (test code = 5302966219) 13 mg/dL 7-23 GLUCOSE (test code = 9674838754) 61 mg/dL 70-110 L CREATININE (test code = 6633960820) 0.75 mg/dL 0.50-1.04 CALCIUM (test code = 6904228318) 9.4 mg/dL 8.6-10.6 eGFR (test code = 8912110075) mL/min/1.73m2 ROBERT (test code = ROBERT) Association [...] imaging tests). Lab Interpretation (test code = 79234-4) Abnormal [facility] WITH [id number] 19:22:12* Test Item Value Reference Range Interpretation Comme nts WBC (test code = 6690-2) See_Comment [Automated [employer]] The system which generated this result transmitted reference range: 4.30 - 11.10 10*3/?L. The reference range was not used to interpret this result as normal/abnormal. RBC (test code = 789-8) See_Comment [Automated [employer]] The system which generated this result [...] 32.0 g/dL 31.6-35.1 RDW-SD (test code = 57697-0) 45.5 fL 39.0-49.9 RDW-CV (test code = 788-0) 13.7 % 12.0-15.5 PLT (test code = 777-3) See_Comment [Automated [employer]] The system which generated this result transmitted reference range: 166 - 358 10*3/?L. The reference range was not used to interpret this result as normal/abnormal. MPV (test code = 54869-6) 10.3 fL 9.5-12.9 NRBC/100 WBC (test code = 4119227232) See_Comment [Automated [employer] ssage] The system which generated this result transmitted reference range: 0.0 - 10.0 /100 WBCs. The reference range was not used to interpret this result as normal/abnormal. NRBC x10^3 (test code = 3724005255) <0.01 See_Comment [Automated [employer] ssage] The system which generated this result transmitted reference range: 10*3/?L. The reference range was not used to interpret this result as normal/abnormal. GRAN MAT (NEUT) % (test code = 770-8) 45.2 % IMM GRAN % (test code = 6363052297) 0.40 % LYMPH % (test code = 736-9) 44.6 % MONO % (test code = 5905-5) 6.7 % EOS % (test code = 713-8) 2.6 % BASO % (test code = 706-2) 0.5 % GRAN MAT x10^3(ANC) (test code = 5322434925) 2.48 10*3/uL 1.88-7.09 IMM GRAN x10^3 (test code = 9550459383) <0.03 0.00-0.06 LYMPH x10^3 (test code = 731-0) 2.45 10*3/uL 1.32-3.29 MONO x10^3 (test code = 742-7) 0.37 10*3/uL 0.33-0.92 EOS x10^3 (test code = 711-2) 0.14 10*3/uL 0.03-0.39 BASO x10^3 (test code = 704-7) 0.03 10*3/uL 0.01-0.07 [facility]"
[2024-11-06] MEDS ORDERED: NA CHLORIDE 0.9% 1,000 ML ONE ×2 (20:29→21:09)
[2024-11-06 20:49] LABS: Absolute Eosinophils 0.1 K/uL (0-0.5); Absolute Lymphocytes (CBC) 2.1 K/uL (0.7-4.9); Absolute Monocytes 0.2 K/uL (0.1-1.3); Absolute Neutrophil 2.5 K/uL (1.8-8.0); Basophils % 0.9 % (0-1.3); Eosinophils % 1.1 % (0-4.4); Hematocrit 40.8 % (36.0-45.0); Lymphocytes % 42.9 % (15.3-44.8); MCH 29.4 pg (27.0-35.0); MCV 91.9 fL (80-100); MPV 9.9 fL (7.6-11.3); Monocytes % 3.6 % (3.3-12.3); Neutrophils % 51.5 % (41.7-73.7); Nucleated Red Blood Cells % 0.2 % (0-0); Platelets 200 thou/uL (152-406); RBC Red Blood Cell Count 4.44 M/uL (3.86-4.86); Red Cell Distribution Width 14.6 % (12.1-15.2)
[2024-11-06 20:53] LABS: PT Prothrombin Time 13.4 SECONDS (9.4-12.5); PTT, Activated Partial Thromb 31.7 SECONDS (24.3-36.9); Protime INR 1.2
--- NOTE | 2024-11-06 20:55 | RAD REPORT ---
EXAM: Chest Single View HISTORY: COUGH COMPARISON: 02/03/2024 FINDINGS: LUNGS/PLEURA: The lungs are clear. No pleural effusions or pneumothorax. No pulmonary edema. MEDIASTINUM: The mediastinal silhouette is within normal limits. CARDIAC: The cardiac silhouette is within normal limits. UPPER ABDOMEN: No significant abnormality. BONES: No acute fracture. LINES/TUBES/OTHER: N/A IMPRESSION: No evidence of acute cardiopulmonary disease.
[2024-11-06] MEDS ORDERED: CEFTRIAXONE 1000 MG/VIAL ONE (21:08)
[2024-11-06] MEDS ORDERED: NA CHLORIDE 0.9% 500 ML ONE (21:09)
[2024-11-06] MEDS ORDERED: NA CHLORIDE 0.9% 50 ML ONE (21:09)
[2024-11-06 21:10] LABS: Albumin 2.9 g/dL (3.4-5.0); Albumin/Globulin Ratio 0.6 (1.1-1.8); Anion Gap 9.5 mEq/L (5.0-15.0); Bilirubin Total 0.5 mg/dL (0.2-1.0); Globulin 5.1 g/dL (2.3-3.5); Potassium 3.5 mEq/L (3.5-5.1)
--- NOTE | 2024-11-06 21:13 | RAD REPORT ---
EXAMINATION: CT HEAD WITHOUT CONTRAST CLINICAL INDICATION: Female, 69 years old.AMS TECHNIQUE: Axial CT images from the skull base to the vertex without intravenous contrast. Coronal an d sagittal reformatted images were created from the data set. One or more of the following dose reduction techniques were used: Automated exposure control, adjustment of the mA and/or kV according to patient size, and/or iterative reconstruction. Unless otherwise specified, incidental findings do not require dedicated imaging follow-up. [id number]. COMPARISON: 12/30/2023 FINDINGS: INTRACRANIAL: No acute intracranial hemorrhage. No hydrocephalus. No mass effect or midline shift. No significant white matter disease. VASCULATURE: No visualized abnormalities in the arteries or dural venous sinuses. SCALP/SKULL: No significant soft tissue or osseous abnormalities. SINUSES: Chronic mucoperiosteal thickening at the right maxillary sinus. IMPRESSION: No acute intracranial abnormality.
[2024-11-06 22:07] LABS: Specific Gravity 1.018 (1.005-1.030); Sqamous Epithelial <5 /HPF (None Seen); Urine Bacteria <20 /HPF (<20); Urine Bilirubin NEGATIVE (Negative); Urine Blood 1+ (Negative); Urine Clarity Extremely Turbid (Clear); Urine Color Yellow (Yellow); Urine Culture Reflex Order NOT NEEDED; Urine Glucose TRACE (Negative); Urine Ketones NEGATIVE (Negative); Urine Microscopic Reflex YN ORDER UMIC; Urine Mucus 2+ /HPF (None Seen); Urine Nitrite NEGATIVE (Negative); Urine Protein 2+ (Negative); Urine RBC <5 /HPF (None Seen); Urine Urobilinogen 2+ (Normal)
[2024-11-06 22:47] LABS: SARS-CoV-2 Antigen CONTROL BLUE LINE VIS/BG OK; SARS-CoV-2 Antigen Rapid Res Negative (Negative)
--- NOTE | 2024-11-06 23:34 | ER ---
Nurse's Notes [facility] Name: Mona Reilly Age: 69 yrs Sex: Female : 1955 Arrival Date: 11/06/2024 Time: 20:18 Bed 5 Private MD: Diagnosis: Dehydration Presentation: 11/06 20:09 Chief complaint: EMS states: patient experienced a syncopal episode at [place] [address], patient responsive to painful stimuli on scene. patient alert to verbal stimuli at this time. patient family member states she also had a syncopal episode about 3 days ago at the doctors office. Coronavirus screen: At this time, the client does not indicate any symptoms associated with coronavirus-19. Ebola Screen: No symptoms or risks identified at this time. Initial Sepsis Screen: Does the patient meet any 2 criteria? Systolic BP < 90 mmHg. Altered Mental Status. Yes Does the patient have a suspected source of infection? No. Patient's initial sepsis screen is negative. Risk Assessment: Do you want to hurt yourself or someone else? Patient reports no desire to harm self or others. Onset of symptoms was November 06, 2024. 20:09 Method Of Arrival: EMS: [facility] nd5 20:09 Acuity: JUAN 2 al5 Triage Assessment: 20:09 General: Appears in no apparent distress. Behavior is cooperative, responsive to verbal al5 stimuli. Pain: Denies pain. EENT: No signs and/or symptoms were reported regarding the EENT system. Neuro: Level of Consciousness is obeys commands, lethargic, responsive to verbal stimuli. Reports dizziness, before syncopal episode. 20:09 Cardiovascular: Patient's skin is warm and dry. Cardiovascular: Reports syncope. al5 Respiratory: Airway is patent Respiratory effort is even, unlabored, Respiratory pattern is regular, symmetrical. GI: No signs and/or symptoms were reported involving the gastrointestinal system. : No signs and/or symptoms were reported regarding the genitourinary system. Derm: Skin is intact, is healthy with good turgor, Skin is normal, Skin temperature is cool due to being outside. Musculoskeletal: No signs and/or symptoms reported regarding the musculoskeletal system. Historical: - Allergies: 20:09 No Known Allergies; al5 - PMHx: 20:09 breast cancer; al5 - PSHx: 20:09 R mastectomy; al5 - Immunization history:: Adult Immunizations up to date. - Infectious Disease History:: Denies. - Social history:: Smoking status: unknown. Screenin:[facility] ED Fall Risk Assessment (Adult) History of falling in the last 3 months, al5 including since admission Yes- physiologic fall (2 pts) Confusion or Disorientation Yes (5 pts) Intoxicated or Sedated No (0 pts) Impaired Gait Yes (1 pt) Mobility Assist Device Used Yes (1 pt) Altered Elimination Yes (1 pt) Score/Fall Risk Level 3 or more points = High Risk Oriented to surroundings, Maintained a safe environment, Provided non-skid footwear, Hourly rounding (assess needs \T\ fall precautionary measures) done, Apply high fall risk patient identification: yellow non skid footwear/ fall signage, Utilized family, sitter, or virtual icing machine operator as indicated. Abuse screen: Denies threats or abuse. Denies injuries from another. Nutritional screening: No deficits noted. Tuberculosis screening: No symptoms or risk factors identified. Assessment: 20:50 Reassessment: see triage assessment. Cardiovascular: Rhythm is sinus bradycardia. al5 21:39 Reassessment: Patient appears in no apparent distress at this time. Patient and/or al5 family updated on plan of care and expected duration. Pain level reassessed. Patient is alert, oriented x 3, equal unlabored respirations, skin warm/dry/pink. Patient states symptoms have improved. General: Appears in no apparent distress. Behavior is calm, cooperative. Neuro: Level of Consciousness is awake, alert, obeys commands, Oriented to person, place, time, situation. Respiratory: Airway is patent Respiratory effort is even, unlabored, Respiratory pattern is regular, symmetrical. Vital Signs: 20:09 BP 76 / 57; Pulse 62; Resp 14; Pulse Ox 99% on R/A; al5 20:10 BP 74 / 52; Pulse 59; Resp 14; Pulse Ox 98% on R/A; al5 20:16 BP 82 / 56; Pulse 61; Resp 17; Pulse Ox 99% on R/A; al5 20:23 BP 76 / 54; Pulse 57; Resp 15; Temp 97.5; Pulse Ox 98% on R/A; al5 20:30 BP 85 / 59; Pulse 59; Resp 15; Pulse Ox 99% on R/A; al5 20:45 BP 78 / 68; Pulse 61; Resp 16; Pulse Ox 97% on R/A; al5 20:58 BP 99 / 59; Pulse 56; Resp 14; Pulse Ox 100% on R/A; al5 21:00 BP 97 / 62; Pulse 58; Resp 13; Pulse Ox 100% on R/A; al5 21:06 Weight 77.11 kg; Height 5 ft. 7 in. ; al5 21:16 BP 106 / 61; Pulse 56; Resp 14; Pulse Ox 99% on R/A; al5 21:18 BP 97 / 62; ec2 21:30 BP 114 / 62; Pulse 54; Resp 18; Pulse Ox 99% on R/A; al5 22:00 BP 122 / 67; Pulse 52; Resp 18; Pulse Ox 100% on R/A; al5 22:05 BP 110 / 68; ec2 22:30 BP 145 / 83; Pulse 53; Resp 16; Pulse Ox 100% on R/A; al5 22:39 BP 142 / 121; ec2 23:00 BP 168 / 84; Pulse 53; Resp 17; Pulse Ox 100% on R/A; al5 23:30 BP 129 / 80; Pulse 52; Resp 18; Pulse Ox 99% on R/A; al5 21:06 Body Mass Index 26.63 (77.11 kg, 170.18 cm) al5 NIH Stroke Scale Scores: 20:51 NIHSS Score: 2 al5 ED Course: 20:09 Arm band placed on right wrist. Patient placed in the treatment room, on a stretcher, al5 on monitoring engineer, on pulse oximetry. 20:20 Patient arrived in ED. [email or web address] 20:24 Ricky Monaco MD is Attending Physician. ec2 20:39 Lucia Nj RN is Primary Nurse. al5 20:45 Triage completed. al5 20:49 Chest Single View XRAY In Process Unspecified. EDMS 20:52 Patient has correct armband on for positive identification. Placed in gown. Bed in low al5 position. Call light in reach. Side rails up X2. Provided Education on: plan of care. 20:52 No provider procedures requiring assistance completed. Inserted saline lock: 22 gauge al5 in left antecubital area, using aseptic technique. Blood collected. Flushed with 10 mL NS. 21:02 CT Head Brain wo Cont In Process Unspecified. EDMS 23:54 IV discontinued, intact, bleeding controlled, No redness/swelling at site. Pressure al5 dressing applied. Administered Medications: 21:22 Drug: Rocephin IV 1 grams IV at bolus once; Given slow IV push per pharmacy al5 instructions Route: IV; Rate: bolus; Site: left antecubital; 22:17 Follow up: Response: No adverse reaction; IV Status: Completed infusion; IV Intake: [id number] 21:32 Drug: NS 0.9% IV (30 ml/kg) 30 ml/kg IV at bolus once; Sepsis Protocol; to be given as al5 a bolus over 90 minutes Route: IV; Rate: bolus; Site: left antecubital; 23:55 Follow up: Response: No adverse reaction; IV Status: Completed infusion; IV Intake: al5 2500ml Medication: 20:51 VIS not applicable for this client. al5 Intake: 22:17 IV: 50ml; Total: 50ml. al5 23:55 IV: 2500ml; Total: 2550ml. al5 Outcome: 23:33 Discharge ordered by MD. ec2 23:55 Discharged to home via wheelchair, with family, al5 23:55 Condition: good 23:55 Discharge instructions given to patient, family, Instructed on discharge instructions, follow up and referral plans. Demonstrated understanding of instructions, follow-up care, 11/07 00:42 Patient left the ED. al5 NIH Stroke Scale - NIH Stroke Score Date: 11/06/2024 Time: 20:51 Total Score = 2 10. Dysarthria (speech clarity - read or repeat words) - 1(Mild to Moderate) 11. Extinction and Inattention (visual/tactile/auditory/spatial/personal) - 0(No abnormality) 1a. Level of Consciousness (LOC) - 1(Not Alert) 1b. Level of Consciousness (LOC) (Month \T\ Age) - 0(Both) 1c. LOC Commands (Open \T\ Closes Eyes/Rrt) - 0(Both) 2. Best Gaze (Lateral Gaze Paresis) - 0(Normal) 3. Visual Field Loss - 0(No visual loss) 4. Facial Palsy - 0(Normal) 5a. Left Arm: Motor (10-second hold) - 0(No drift) 5b. Right Arm: Motor (10-second hold) - 0(No drift) 6a. Left Leg: Motor (5-second hold - always test supine) - 0(No drift) 6b. Right Leg: Motor (5-second hold - always test supine) - 0(No drift) 7. Limb Ataxia (finger/nose \T\ heel/lucas - test with eyes open) - 0(Absent) 8. Sensory Loss (pinprick arms/legs/face) - 0(Normal) 9. Best Language: Aphasia (description/naming/reading) - 0(No aphasia) Initials: al5 Signatures: Dispatcher [employer] EDMS Moraima Garcia [email or web address] Ricky Monaco MD MD ec2 Lucia Nj RN RN al5 Corrections: (The following items were deleted from the chart) 11/06 20:47 20:39 Chief complaint: EMS states: patient experienced a syncopal episode at [address] [place], patient responsive to painful stimuli on scene. patient alert to verbal stimuli at this time. patient family member states she also had a syncopal episode about 3 days ago at the doctors office al5 20:47 20:39 Coronavirus screen: At this time, the client does not indicate any [facility] symptoms associated with coronavirus-19. al5 20:47 20:39 Ebola Screen: No symptoms or risks identified at this time. al5 al5 20:47 20:39 Initial Sepsis Screen: Does the patient meet any 2 criteria? Systolic BP al5 < 90 mmHg. Altered Mental Status. Yes Does the patient have a suspected source of infection? No. Patient's initial sepsis screen is negative. al5 :47 20:39 Risk Assessment: Do you want to hurt yourself or someone else? Patient al5 reports no desire to harm self or others. al5 20:47 20:39 Onset of symptoms was November 06, 2024 al5 al5 20:47 20:39 Method Of Arrival: EMS: [facility] al 20:47 20:39 BP 76 / 57; Pulse 62bpm; Resp 14bpm; Pulse Ox 99% RA; al5 al 20:47 20:39 Acuity: JUAN 2 al5 20:48 20:45 Allergies: No Known Allergies; al5 20:48 20:45 Home Meds: Flexeril 10 mg Oral tab 1 tab 3 times per day [Inactive]; al5 al5 20:48 20:45 PMHx: breast cancer; al5 al5 20:48 20:45 PSHx: mastectomy; al5 al5 20:48 20:45 Immunization history: Adult Immunizations up to date, al5 al5 20:48 20:45 Infectious Disease History: Denies. al5 al5 20:48 20:45 Social history: Smoking status: Patient denies any tobacco usage or al5 history of. al5
--- NOTE | 2024-11-06 23:35 | EDPHYS ---
Physician Documentation [facility] Name: Mona Reilly Age: 69 yrs Sex: Female : 1955 Arrival Date: 11/06/2024 Time: 20:18 Bed 5 Private MD: ED Physician Ricky Monaco HPI: 11/06 20:33 This 69 yrs old Black Female presents to ER via Unassigned with complaints of Syncope. ec2 20:33 Patient arrives today for evaluation of a syncopal episode. Patient reportedly was at ec2 lunch and subsequently became lightheaded and syncopized. No chest pain, has been having some issues with shortness of breath recently. No issues with vomiting or diarrhea. No urinary complaints. No cough and cold symptoms. Per daughter in the room patient is reportedly more drowsy than typical right now.. Historical: - Allergies: 20:09 No Known Allergies; al5 - PMHx: 20:09 breast cancer; al5 - PSHx: 20:09 R mastectomy; al5 - Immunization history:: Adult Immunizations up to date. - Infectious Disease History:: Denies. - Social history:: Smoking status: unknown. ROS: 20:33 Constitutional: as per hpi ec2 Exam: 20:33 Abdomen/GI: ec2 20:33 Constitutional: GEN: NAD Head: atraumatic Eyes: EOMI Ears: External ears are normal. CV: regular rate LUNGS: no respiratory distress ABD: non-distended, soft, nontender, not guarding, not rigid SKIN: no evidence of rashes MSK: no evidence of trauma. Neuro: Cranial nerves II through XII intact, strength intact all 4 extremities, normal sensation throughout. Vital Signs: 20:09 BP 76 / 57; Pulse 62; Resp 14; Pulse Ox 99% on R/A; al5 20:10 BP 74 / 52; Pulse 59; Resp 14; Pulse Ox 98% on R/A; al5 20:16 BP 82 / 56; Pulse 61; Resp 17; Pulse Ox 99% on R/A; al5 20:23 BP 76 / 54; Pulse 57; Resp 15; Temp 97.5; Pulse Ox 98% on R/A; al5 20:30 BP 85 / 59; Pulse 59; Resp 15; Pulse Ox 99% on R/A; al5 20:45 BP 78 / 68; Pulse 61; Resp 16; Pulse Ox 97% on R/A; al5 20:58 BP 99 / 59; Pulse 56; Resp 14; Pulse Ox 100% on R/A; al5 21:00 BP 97 / 62; Pulse 58; Resp 13; Pulse Ox 100% on R/A; al5 21:06 Weight 77.11 kg; Height 5 ft. 7 in. ; al5 21:16 BP 106 / 61; Pulse 56; Resp 14; Pulse Ox 99% on R/A; al5 21:18 BP 97 / 62; ec2 21:30 BP 114 / 62; Pulse 54; Resp 18; Pulse Ox 99% on R/A; al5 22:00 BP 122 / 67; Pulse 52; Resp 18; Pulse Ox 100% on R/A; al5 22:05 BP 110 / 68; ec2 22:30 BP 145 / 83; Pulse 53; Resp 16; Pulse Ox 100% on R/A; al5 22:39 BP 142 / 121; ec2 23:00 BP 168 / 84; Pulse 53; Resp 17; Pulse Ox 100% on R/A; al5 23:30 BP 129 / 80; Pulse 52; Resp 18; Pulse Ox 99% on R/A; al5 21:06 Body Mass Index 26.63 (77.11 kg, 170.18 cm) al5 NIH Stroke Scale Scores: 20:51 NIHSS Score: 2 al5 MDM: 20:26 Medical Screening Exam initiated ec2 20:33 Data reviewed: vital signs, nurses notes. ED course: Patient arrives today for syncopal ec2 episode and generalized weakness. Examination is remarkable for reassuring neurologic exam. Will obtain lab test, CT scan of the head, chest x-ray. Differential diagnosis include process such as anemia, dehydration, electrolyte disturbances.. 20:34 ED course: EKG independently reviewed and interpreted by me, shows normal sinus rhythm, ec2 rate of 64, no acute ST segment elevations, intervals are nonactionable.. 21:54 ED course: Metabolic profile shows renal dysfunction with a creatinine of 1.38. Lactic ec2 acid slight elevation of 2.6. CBC reassuring. Chest x-ray shows no acute intrathoracic process. CT scan of the head with no acute intracranial process.. 22:39 ED course: On reassessment patient with improvement in vital signs, subjectively feels ec2 substantially better. Will obtain repeat lactic acid and reassess. No infectious etiology identified. I suspect significant dehydration causing patient's symptoms today given the nice response to the fluid bolus.. 23:33 ED course: Repeat lactic acid within normal ranges. On reassessment patient is ec2 well-appearing no acute distress. Suspect dehydration. Will discharge home. Turn precautions given.. 12 20:33 Order name: Blood Culture Adult (2) ec2 11/06 20:33 Order name: CBC with Diff; Complete Time: 21:54 ec2 11/06 20:33 Order name: CMP; Complete Time: 21:54 ec2 11/06 20:33 Order name: Lactate w/ 2H reflex if indic.; Complete Time: 21:54 ec2 11/06 20:33 Order name: Protime (+inr); Complete Time: 21:54 ec2 11/06 20:33 Order name: Ptt, Activated; Complete Time: 21:54 ec2 11/06 20:33 Order name: Urinalysis w/ reflexes; Complete Time: 22:33 ec2 11/06 20:33 Order name: Influenza Screen (a \T\ B); Complete Time: 23:33 ec2 11/06 20:33 Order name: SARS RAPID; Complete Time: 23:33 ec2 11/06 22:58 Order name: Lactate w/ 2H reflex if indic.; Complete Time: 23:33 EDMS 11/06 20:33 Order name: Chest Single View XRAY; Complete Time: 21:54 ec2 11/06 20:33 Order name: CT Head Brain wo Cont; Complete Time: 21:54 ec2 11/06 20:33 Order name: EKG; Complete Time: 20:33 ec2 11/06 20:33 Order name: Cardiac monitoring; Complete Time: 20:39 ec2 11/06 20:33 Order name: EKG - Nurse/Tech; Complete Time: 20:39 ec2 11/06 20:33 Order name: IV Saline Lock - Large Bore; Complete Time: 20:39 ec2 11/06 20:33 Order name: Labs collected and sent; Complete Time: 20:39 ec2 11/06 20:33 Order name: O2 Per Protocol; Complete Time: 20:39 ec2 11/06 20:33 Order name: O2 Sat Monitoring; Complete Time: 20:39 ec2 11/06 20:33 Order name: Vital Signs; Complete Time: 20:39 ec2 11/06 22:03 Order name: Cath; Complete Time: 22:17 ec2 Administered Medications: 21:22 Drug: Rocephin IV 1 grams IV at bolus once; Given slow IV push per pharmacy al5 instructions Route: IV; Rate: bolus; Site: left antecubital; 22:17 Follow up: Response: No adverse reaction; IV Status: Completed infusion; IV Intake: [id number] 21:32 Drug: NS 0.9% IV (30 ml/kg) 30 ml/kg IV at bolus once; Sepsis Protocol; to be given as al5 a bolus over 90 minutes Route: IV; Rate: bolus; Site: left antecubital; 23:55 Follow up: Response: No adverse reaction; IV Status: Completed infusion; IV Intake: al5 2500ml Disposition Summary: 11/06/24 23:33 Discharge Ordered Notes: Location: Home ec2 Condition: Stable ec2 Diagnosis - Dehydration ec2 Followup: ec2 - With: Private Physician - When: - Reason: Recheck today's complaints Discharge Instructions: - Discharge Summary Sheet ec2 - Dehydration, Adult ec2 Forms: - Medication Reconciliation Form ec2 - Antibiotic Education ec2 - Prescription Opioid Use ec2 - Patient Portal Instructions ec2 - Leadership Thank You Letter ec2 NIH Stroke Scale - NIH Stroke Score Date: 11/06/2024 Time: 20:51 Total Score = 2 10. Dysarthria (speech clarity - read or repeat words) - 1(Mild to Moderate) 11. Extinction and Inattention (visual/tactile/auditory/spatial/personal) - 0(No abnormality) 1a. Level of Consciousness (LOC) - 1(Not Alert) 1b. Level of Consciousness (LOC) (Month \T\ Age) - 0(Both) 1c. LOC Commands (Open \T\ Closes Eyes/Manager Of Radiology) - 0(Both) 2. Best Gaze (Lateral Gaze Paresis) - 0(Normal) 3. Visual Field Loss - 0(No visual loss) 4. Facial Palsy - 0(Normal) 5a. Left Arm: Motor (10-second hold) - 0(No drift) 5b. Right Arm: Motor (10-second hold) - 0(No drift) 6a. Left Leg: Motor (5-second hold - always test supine) - 0(No drift) 6b. Right Leg: Motor (5-second hold - always test supine) - 0(No drift) 7. Limb Ataxia (finger/nose \T\ heel/lucas - test with eyes open) - 0(Absent) 8. Sensory Loss (pinprick arms/legs/face) - 0(Normal) 9. Best Language: Aphasia (description/naming/reading) - 0(No aphasia) Initials: al5 Signatures: Dispatcher [employer] EDMS Ricky Monaco MD MD ec2 Lucia Nj RN RN al5 Corrections: (The following items were deleted from the chart) 20:33 20:33 BLOOD CULTURE*+BA.LAB.BRZ ordered. EDMS EDMS 20:33 20:33 CBC+H.LAB.BRZ ordered. EDMS EDMS 20:33 20:33 COMPREHENSIVE METABOLIC PANEL+C.LAB.BRZ ordered. EDMS EDMS 20:33 20:33 LACTATE+C.LAB.BRZ ordered. EDMS EDMS 20:33 20:33 PROTIME (+INR)+COAG.LAB.BRZ ordered. EDMS EDMS 20:33 20:33 PTT, ACTIVATED+COAG.LAB.BRZ ordered. EDMS EDMS 20:33 20:33 Urinalysis+U.LAB.BRZ ordered. EDMS EDMS 20:33 20:33 Influenza Screen (A \T\ B)+BA.LAB.BRZ ordered. EDMS EDMS 20:33 20:33 SARS-COV-2 Antigen Rapid+I.LAB.BRZ ordered. EDMS EDMS 20:48 20:45 Allergies: No Known Allergies; al5 al5 20:48 20:45 Home Meds: Flexeril 10 mg Oral tab 1 tab 3 times per day [Inactive]; al5 al5 20:48 20:45 PMHx: breast cancer; al5 al5 20:48 20:45 PSHx: mastectomy; al5 al5 20:48 20:45 Immunization history: Adult Immunizations up to date, al5 al5 20:48 20:45 Infectious Disease History: Denies. al5 al5 20:48 20:45 Social history: Smoking status: Patient denies any tobacco usage or al5 history of. al5 21:32 20:33 Accucheck ordered. ec2 al5 22:58 21:25 Ghost Lactate-NO COLLECT Timer ordered. EDMS EDMS
[2024-11-07 05:42] VITALS: TEMP 97.5
[2024-11-07 06:10] VITALS: BP 129/80; O2SAT 99
== END 2024-11-07 00:42 | disposition home or self-care (01) ==
LOC: ER 20:18
DX: E86.0 Dehydration (principal); Z11.52 Encounter for screening for COVID-19
CPT/HCPCS: 96365; 87040 ×2; 85025; 81001; 36415; 85610; 83605 ×2; 85730; 80053; 87804 ×2; 70450; 71045; 99285; 96366; 87811; J7040; J7030 ×2; J0696

== ENCOUNTER 2025-01-22 22:04 | Emergency (ER) | payer OTHER ==
--- OUTSIDE RECORDS SUMMARY | 2025-01-22 22:14 | XMS REPORT | Continuity of Care Document ---
Author Name Unknown Address [address] [facility] [address] [place] [address] [facility] Address [address] [facility] [place] [address] Care Team Providers Care Wan Support Specialist Name Role Phone Tati Samuel Primary Care Physician [phone] LONDON WAYNE Attending Clinician Unav ailable LONDON WAYNE Attending Clinician Unav ailable Sabina Leone Attending Clinician Unavail able CHARAN ZEPEDA Attending Clinician Unavail able CHARAN ZEPEDA Attending Clinician Unavail able SLOAN FLETCHER Attending Clinician Unavail able SLOAN FLETCHER Attending Clinician Unavail able Kristina Gonzalez RN Attending Clinician Unavail able VINCENZO AGUILAR Attending Clinician Unavailable Yo ELLSWORTH, David Olsen Attending Clinician + Vincenzo Aguilar DO Attending Clinician [phone], [facility] Attending Clinician Unavailable Christiano Peacock MD Attending Clinician [phone] CHRISTIAON PEACOCK Attending Clinician Unavailyareli Wayne MD, [place] Attending Clinician + Lab, Ang - Db Attending Clinician Unavailable Sloan Fletcher MD Attending Clinician [phone] Librado ELLSWORTH, Saleem Attending Clinician [phone] SALEEM PAVON Attending Clinician Unavailable Angelica Paniagua RN Attending Clinician UnavailRAQUEL Rodas Attending Clinician Unavailab RAQUEL Steele Attending Clinician Unavailab Raquel Steele DO Attending Clinician [phone] PAUL ORTEGA Attending Clinician UnavailPAUL Perez Attending Clinician UnavailPaul Perez MD Attending Clinician [phone] Helen Correa Attending Clinician [phone] HELEN BRADSHAW Attending Clinician Unavailable TATI ALEXANDER Attending Clinician Unavailable Tati Samuel Attending Clinician [phone] Tammy Padilla MD Attending Clinician [phone] Duane ELLSWORTH, Charan Cruz Attending Clinician [phone] MICHELLE PURCELL Attending Clinician MICHELLE Bland Attending Clinician OLLIE Sales Attending Clinician Unavailab napoleon SMITH Attending Clinician Unavailable Radiology Attending Clinician Unavailable Tammy Padilla MD Attending Clinician +[phone] Doctor Unassigned, [place] Attending Clinician U navailable TAMMY PADILLA Attending Clinician Unavailable Dash ELLSWORTH PhD, Kaylene Olivas Attending Clinician Unavailable Tati Samuel Attending Clinician [phone] Neurology Attending Clinician Unavailable KRISTINE NORTON Attending Clinician UnavailKristine Smith MD Attending Clinician [phone] TADEO KAHN Attending Clinician BOUCHRA Lynne Attending Clinician Unavailable KAI GARCIA Attending Clinician Unavailable KAI GARCIA Attending Clinician Unavailable TirsoBerenice Lewis Attending Clinician + [phone] Michelle Cano Attending Clinician +[phone] Naila ELLSWORTH, Bouchra Attending Clinician [phone] Pcp, Patient Does Not Have A Attending Clinician MICHELLE GREWAL Attending Clinician Unavailable Ashlee Coffey PTA Attending Clinician Unavail able Steven OTAshlee Attending Clinician Unavail able Paul Ortega MD Attending Clinician [phone] Paula RN, Mohinder Faustin Attending Clinician U Chirag Trinh Attending Clinician Unavailabl e Sanjay CHRISTIANSON, Savana Attending Clinician [phone] SAVANA GRACE Attending Clinician Unavailable Naya BLACK, Silvina Attending Clinician Unavailabl e 9, [facility] In[facility] Chair Attending Clinician Ollie Sales MD Attending Clinician [phone] 2, [facility] Attending Clinician Unavailable HIEN FELTON Attending Clinician Unavaila ble 7, [facility] Chair Attending Clinician Belkis Hebert PA-C Attending Clinician [phone] BELKIS ROLLINS Attending Clinician Unavailabl e 5, [facility] Chair Attending Clinician Yaneth Joyner MD Attending Clinician [phone] YANETH MINOR Attending Clinician Unavailable 11, [facility] Chair Attending Clinician Derek silveira 1, [facility] Chair Attending Clinician Lavon Kimbrough Attending Clinician + [phone], [facility] Chair Attending Clinician Alix Suh [facility] Neurology Resident Attending Analilia walker Unavailable LAVON BLAKE Attending Clinician Unavailable LAVON BLAKE Attending Clinician Unavailable TASH JENKINS Attending Clinician Unavailable Tash Naidu Attending Clinician [phone], [facility] In[facility] Chair Attending Clinician Alix giron 10, [facility] Chair Attending Clinician UnaBRENNA Hurtado Attending Clinician UnavailKEKE Pires Attending Clinician Unavailyareli Barraza MD, Keke Ray Attending Clinician [phone] Ramírezrenaldo CHRISTIANSON, Ingrid Forman Attending Clinician [phone] Yoshi Sales DO Attending Clinician + [phone] SURAJ BACA Attending Clinician Unavailable SURAJ BACA Attending Clinician Unavailable Ervin CONTRERAS, Davis Jones Attending Clinician Unavaila LAVON [place] Attending Clinician Unavail able LUZMA HOLT Attending Clinician Unavaila radha CHRISTIANSON, Luzma Attending Clinician [phone] Fe ELLSWORTH, Audrey Anguiano Attending Clinician [phone] Shayy Hernandez RN Attending Clinician Unavailable Only, [facility] Test Attending Clinician Unavailable Cody Patel MD Attending Clinician [phone] NALINI FINLEY Attending Clinician UnavaNalini Spangler MD Attending Clinician + [phone] Pob, [facility] Main Attending Clinician UnavailJEANNINE Reyna Attending Clinician Unavailable Lab, Ang - Db Attending Clinician Unavailable Messi Mandujano Attending Clinician [phone] MESSI WASHINGTON Attending Clinician Unavailable LONDON WAYNE Admitting Clinician Unav VINCENZO Harvey Admitting Clinician Unavailable Vincenzo Aguilar DO Admitting Clinician [phone] RAQUEL WILKS Admitting Clinician Unavailab le AZIZ, CHARAN NANCY Admitting Clinician Unavail able DUANE, CHARAN NANCY Admitting Clinician Unavail able KAI GARCIA Admitting Clinician Unavailable BELKIS ROLLINS Admitting Clinician UnavailTASH Duggan Admitting Clinician Unavailable KEKE BARRAZA Admitting Clinician Unavailyareli Barraza MD, Keke Ray Admitting Clinician [phone] SURAJ BACA Admitting Clinician Unavailable LAVON ERIC Admitting Clinician Unavail able KRISTINE NORTON Admitting Clinician UnavailKristine Smith MD Admitting Clinician [phone] NALINI FINLEY Admitting Clinician TATI Ramirez Admitting Clinician Unavailable Payers Payer Name Policy Type Policy Number Effective Date Expirati on Date Source [employer] MEDICARE HMO MIGUELINA [id number] 2017 00:00:00 [place] [id number] 2022 00:00:00 MEDICARE PART A \\T\\ B [id number] 2012 00:00:00 Problems Condition Name Condition Details Condition Category Status Onset Date Resolution Date Last Treatment Date Treating Clinician Comments Source Syncope, unspecifie d syncope type Syncope, unspecifie d syncope type Disease Active 12-31 00:00: 00 [facility] Recurrent syncope Recurrent syncope Disease Active 12-08 00:00: 00 [facility] Primary hypertensi on Primary hypertensi on Disease Active 2023-11 00:00: 00 [facility] Nonobstruc tive atheroscle rosis of coronary artery Nonobstruc tive atheroscle rosis of coronary artery Disease Active 2023-11 00:00: 00 [facility] Syncope and collapse Syncope and collapse Disease Active 02-18 00:00: 00 [facility] Coronary artery disease involving [place] coronary artery of [place] heart without angina pectoris Coronary artery disease involving [place] coronary artery of [place] heart without angina pectoris Disease Active 02-18 00:00: 00 [facility] Essential hypertensi on Essential hypertensi on Disease Active 02-18 00:00: 00 [facility] Generalize d anxiety disorder Generalize d anxiety disorder Disease Active 2022-11 00:00: 00 [facility] Degenerati on of lumbar interverte bral disc Degenerati on of lumbar interverte bral disc Disease Active 2022-11 00:00: 00 [facility] Chronic pain disorder Chronic pain disorder Disease Active 2022-11 00:00: 00 [facility] Obesity Obesity Disease Active 2022-11 00:00: 00 [facility] Age-relate d osteoporos is without current pathologic al fracture Age-relate d osteoporos is without current pathologic al fracture Disease Active 2022-11 00:00: 00 [facility] At risk for falls At risk for falls Disease Active 2022-11 00:00: 00 [facility] Unspecifie d abnormalit ies of gait and mobility Unspecifie d abnormalit ies of gait and mobility Disease Active 2022-11 00:00: 00 [facility] Spasm of muscle Spasm of muscle Disease Active 07-08 00:00: 00 [facility] 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 Added automatic ally from request for surgery [id number] [facility] Hematemesi s, unspecifie d whether nausea present Hematemesi s, unspecifie d whether nausea present Disease Active 2021-11 00:00: 00 Overview: Formattin g of this note might be different from the original. Added automatic ally from request for surgery [id number] [facility] Family history of colon cancer in father Family history of colon cancer in father Disease Active 2021-11 00:00: 00 Overview: Formattin g of this note might be different from the original. 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, estrogen receptor positive Disease Active 06-25 00:00: 00 [facility] Acute pain of right shoulder Acute pain of right shoulder Disease Active 06-19 00:00: 00 [facility] Acute pain of right shoulder Acute pain of right shoulder Disease Active 06-19 00:00: 00 [facility] Malignant neoplasm of right breast greater than or equal to 2 cm in greatest dimension Malignant neoplasm of right breast greater than or equal to 2 cm in greatest dimension Disease Active 06-04 00:00: 00 Overview: Formattin g of this note might be different from the original. Added automatic ally from request for surgery [id number] [facility] Need for hepatitis C screening test Need for hepatitis C screening test Disease Active 03-19 00:00: 00 [facility] Breast mass, right Breast mass, right Disease Active 03-19 00:00: 00 [facility] Breast pain Breast pain Disease Active 03-19 00:00: 00 [facility] Encounter to establish care Encounter to establish care Disease Active 03-19 00:00: 00 [facility] Thyroid enlarged Thyroid enlarged Disease Active 03-19 00:00: 00 [facility] Encounter to establish care Encounter to establish care Disease Active 03-19 00:00: 00 [facility] Type 2 diabetes mellitus without complicati on Type 2 diabetes mellitus without complicati on Disease Active 12-21 00:00: 00 [facility] Low back pain Low back pain Disease Active 2016-11 00:00: 00 [facility] [id number] Lumbago with sciatica, left side Problem [facility] [id number] Paroxysmal a-fib Problem [facility] [id number] Lumbago with sciatica, right side Problem [facility] [id number] HX: breast cancer Problem [facility] [id number] Other chronic pain Problem [facility] [id number] Cervical pain Problem [facility] [id number] History of right mastectomy Problem [facility] [id number] Mixed hyperlipid emia Problem [facility] Overweight Overweight Problem Co mmon [facility] [id number] Other tobacco product nicotine dependence , uncomplica ni Problem [facility] [id number] Vitamin D deficiency Problem [facility] [id number] Normocytic anemia Problem [facility] [id number] Peripheral polyneurop athy Problem [facility] [id number] Current moderate episode of major depressive disorder without prior episode Problem [facility] Tobacco user Nicotine dependence with current use Problem [facility] [id number] Memory loss Problem [facility] [id number] Mixed stress and urge urinary incontinen ce Problem [facility] Allergies, Adverse Reactions, Alerts Allergy Name Allergy Type Status Severity Reaction(s) Onset Date Inactive Date Treating Clinician Comments Source NO KNOWN ALLERGIE S Drug Class Active [facility] Family History Family Member Diagnosis Comments Start Date Stop Date Sourc e Natural father Cancer Unive [facility] Natural father Diabetes Unive [facility] Natural mother Diabetes Unive [facility] Natural sister Diabetes Unive [facility] Social History Social Habit Start Date Stop Date Quantity Comments Source Sex Assigned At [facility] Gender identity [facility] Alcoholic beverage intake 2024-12-31 00:00:00 2024-12-31 00:00:00 Lifetime non-drinker (finding) [facility] History of Social function 2024-09-26 00:00:00 2024-09-26 00:00:00 [facility] Tobacco use and exposure 2024-04-08 00:00:00 2024-04-08 00:00:00 Smokeless tobacco non-user [facility] Cigarettes smoked current (pack per day) - Reported 2024-04-08 00:00:00 2024-04-08 00:00:00 [facility] Cigarette pack-years 2024-04-08 00:00:00 2024-04-08 00:00:00 [facility] Alcohol intake 2024-02-19 00:00:00 2024-02-19 00:00:00 Lifetime non-drinker (finding) [facility] History of Tobacco Use 1974-11-29 00:00:00 2023-12-30 00:00:00 [facility] Exposure to SARS-CoV-2 (event) 2023-04-19 00:00:00 2023-04-29 13:20:[address] [facility] History SDOH Food Worry 2022-08-07 00:00:00 2022-08-07 00:00:[address] [facility] History SDOH Food Scarcity 2022-08-07 00:00:00 2022-08-07 00:00:[address] [facility] History SDOH Transport Med 2022-08-07 00:00:00 2022-08-07 00:00:[address] [facility] History SDOH Transport Non-Med 2022-08-07 00:00:00 2022-08-07 00:00:[address] [facility] Smoking Status Start Date Stop Date Source Former Smoker 2024-11-08 00:00:00 2024-11-08 00:00:00 [facility] Smokes tobacco daily 2024-04-08 00:00:00 [facility] Medications Ordered Medication Name Filled Medication Name Start Date Stop Date Current Medication? Ordering Clinician Indication Dosage Frequency Signature (SIG) Comments Components Source apixaban (ELIQUIS) tablet 5 mg 01-02 02:00: 00 01-01 19:39 :35 No 5144 5mg [facility] pregabalin (LYRICA) capsule 100 mg 01-01 19:15: 00 01-01 18:28 :00 No 100mg 100 mg, Oral, ONCE, 1 dose, On 01/01/25 at 1315, NHI [facility] magnesium citrate solution 296 mL 01-01 15:00: 00 01-01 14:42 :00 No 296mL 296 mL, Oral, ONCE, 1 dose, On 01/01/25 at 0900, Routine [facility] docusate (COLACE) capsule 100 mg 01-01 15:00: 00 01-01 19:39 :35 No 100mg 100 mg, Oral, DAILY, First dose on 01/01/25 at 0900, Until Discontinu ed, Routine [facility] HYDROcodone -acetaminop hen (NORCO 5) tablet 1 tablet 01-01 00:37: 49 01-01 19:39 :35 No 1{tbl} 1 tablet, Oral, Q6HPRN, Starting on 12/31/24 at 1837, Until 01/01/25 at 1339, Routine, Pain (scale 4-6) [facility] acetaminoph en (TYLENOL) tablet 650 mg 01-01 00:37: 47 01-01 19:39 :35 No 650mg 650 mg, Oral, Q6HPRN, Starting on 12/31/24 at 1837, Until 01/01/25 at 1339, Routine, Pain (scale 1-3) [facility] NaCl 0.9% (NS) bolus infusion 1,000 mL 12-31 21:45: 00 12-31 22:30 :00 No 1000mL at 999 mL/hr, 1,000 mL, IV Infusion, ONCE, 1 dose, On 12/31/24 at 1545, STAT [facility] apixaban (ELIQUIS) 5 mg tablet - 00:00: 00 Yes [id number] 5mg Take 1 tablet by mouth in the morning and 1 tablet in the evening. Indication s: prevention of thromboemb olism in paroxysmal atrial fibrillati on [facility] pregabalin 200 mg capsule 1- 00:00: 00 Yes [id number] 200mg Take 1 capsule by mouth in the morning and 1 capsule at noon and 1 capsule in the evening. [facility] Pregabalin 150 MG Pregabalin 150 MG 2023-11 2- 00:00: 00 No 1{capsu le} BID Pregabalin 150 MG Meclizine HCl 12.5 MG Meclizine HCl 12.5 MG 2023-11 00:00: 00 No 1{table t_as_ne eded} BID Meclizine HCl 12.5 MG ibuprofen (IBU) tablet 600 mg 2023-11 22:45: 00 11-02 22:47 :00 No 600mg 600 mg, Oral, ONCE, 1 dose, On Thu11/02/24 at 1645, NHI [facility] Vitamin D3 125 MCG (5000 UT) Vitamin [...] 2023-11 21:30: 00 10-11 20:27 :00 No [id number] 16mg 16 mg, Intramuscu lar, ONCE, 1 dose, On Thu10/11/24 at 1530, Routine [facility] triamcinolo ne acetonide (KENALOG) injection 16 mg 2023-11 1 17:00: 00 10-05 04:59 :00 No 16mg [facility] pregabalin 150 mg capsule 2023-11 0-28 00:00: 00 12-02 00:00 :00 No [id number] 150mg Take 1 capsule by mouth in the morning and 1 capsule at noon and 1 capsule in the evening. [facility] pregabalin 75 mg capsule 2023-11 0 00:00: 00 09-26 00:00 :00 No [id number] 150mg Take 2 capsules by mouth in the morning and 2 capsules at noon and 2 capsules in the evening. [facility] Kenalog (Triamcinol one) Kenalog (Triamcinol one) 7-15 00:00: 00 No 40mg [facility] methylPREDN ISolone acetate (DEPO-MEDRO L) 80 mg/mL 80 mg, lidocaine 1% (PF) (XYLOCAINE) 2 mL, bupivacaine (preserv free) 0.5% (SENSORCAIN E MPF) 7 mL 10 mL injection 05-04 22:00: 00 05-04 22:10 :00 No [id number] 80mg Un[facility] methylPREDN ISolone acetate (DEPO-MEDRO L) 80 mg/mL 80 mg, lidocaine 1% (PF) (XYLOCAINE) 2 mL, bupivacaine (preserv free) 0.5% (SENSORCAIN E MPF) 7 mL 10 mL injection 05-04 22:00: 00 05-04 22:10 :00 No [id number] 80mg Intra-tanya cular, ONCE, 1 dose, On Thu05/04/24 at 1700, 10 mL [facility] acetaminoph en (TYLENOL EXTRA STRENGTH) 500 mg tablet 05-04 00:00: 00 06-04 04:59 :00 No [id number] 1000mg Take 2 tablets by mouth every 8 (eight) hours as needed for Pain for up to 30 days. [facility] cyclobenzap rine 5 mg tablet 5-10 00:00: 00 Yes [id number] 5mg Take 1 tablet by mouth every 12 (twelve) hours as needed for Muscle Spasms. [facility] pregabalin 75 mg capsule 4-26 00:00: 00 09-26 00:00 :00 No [id number] 150mg Take 2 capsules by mouth in the morning and 2 capsules at noon and 2 capsules in the evening. [facility] DULoxetine 60 mg capsule 4-25 00:00: 00 05-23 00:00 :00 No [id number] TAKE 1 CAPSULE BY MOUTH IN THE MORNING AND 1 CAPSULE IN THE EVENING [facility] apixaban 5 mg tablet 3-22 13:25: 16 11-16 00:00 :00 No 5mg Take 1 tablet by mouth in the morning and 1 tablet in the evening. [facility] metoprolol succinate XL 25 mg 24 hr tablet -22 13:25: 16 11-16 00:00 :00 No 25mg Take 1 tablet by mouth in the morning. [facility] apixaban 5 mg tablet -14 14:15: 29 Yes 5mg Take 1 tablet by mouth in the morning and 1 tablet in the evening. [facility] metoprolol succinate XL 25 mg 24 hr tablet 14 14:15: 29 Yes 25mg Take 1 tablet by mouth in the morning. [facility] atorvastati n 40 mg tablet 14 00:00: 00 11-16 00:00 :00 No [id number] 40mg Take 1 tablet by mouth at bedtime. [facility] losartan 25 mg tablet 3-14 00:00: 00 11-16 00:00 :00 No [id number] 25mg Take 1 tablet by mouth in the morning. [facility] letrozole 2.5 mg tablet - 00:00: 00 Yes [id number] 2.5mg Take 1 tablet by mouth daily [facility] ondansetron 4 mg disintegrat ing tablet 01-22 00:00: 00 02-10 00:00 :00 No [id number] 4mg Take 1 tablet by mouth every 8 (eight) hours as needed (take when feeling nausea). [facility] aspirin 81 mg chewable tablet 2- 00:00: 00 11-16 00:00 :00 No 81mg Take 1 tablet by mouth in the morning. [facility] HYDROcodone -acetaminop hen 5-325 mg tablet 12-31 00:00: 00 05-04 00:00 :00 No 1{tbl} Take 1 tablet by mouth every 8 (eight) hours as needed. [facility] atorvastati n 40 mg tablet 12-31 00:00: 00 02-10 00:00 :00 No 40mg Take 1 tablet by mouth at bedtime. [facility] losartan 25 mg tablet 12-31 00:00: 00 02-10 00:00 :00 No 25mg Take 1 tablet by mouth in the morning. [facility] hydralAZINE (APRESOLINE ) injection 2022-11 18:58: 44 Yes PRN, Starting on Thu11/11/23 at 1258, Until Discontinu ed, STAT, Intra-op [facility] lidocaine 1% (PF) (XYLOCAINE) injection 2022-11 18:22: 33 Yes PRN, Starting on Thu11/11/23 at 1222, Until Discontinu ed, Routine, Intra-op [facility] FENTanyl PF (SUBLIMAZE (PF)) injection 2022-11 18:20: 00 Yes Slow IV Push, PRN, Starting on Thu11/11/23 at 1220, Until Discontinu ed, Routine, Intra-op [facility] midazolam (VERSED) injection 2022-11 18:20: 00 Yes IV Push, PRN, Starting on Thu11/11/23 at 1220, Until Discontinu ed, Routine, Intra-op [facility] pregabalin 75 mg capsule 2022-11 00:00: 00 03-24 00:00 :00 No [id number] 150mg Take 2 capsules by mouth in the morning and 2 capsules at noon and 2 capsules in the evening. [facility] DULoxetine 60 mg capsule 2022-11 00:00: 00 03-24 00:00 :00 No [id number] TAKE 1 CAPSULE BY MOUTH IN THE MORNING AND 1 CAPSULE IN THE EVENING [facility] meloxicam 15 mg tablet 2022-11 00:00: 00 02-10 00:00 :00 No [id number] 15mg Take 1 tablet by mouth every morning. [facility] trastuzumab -qyyp (TRAZIMERA) 480 mg in NaCl 0.9% (NS) 250 mL infusion 2022-11 18:15: 00 10-15 19:20 :00 No [id number] 6mg/kg 480 mg (rounded from 477 mg = 6 mg/kg ?79.5 kg Treatment plan Recorded weight), IV Infusion, ONCE, Administer over 60 Minutes, On Thu10/15/23 at 1215, For 1 dose
Sh ould be diluted in 0.9% Sodium Chloride only; DO NOT USE D5W. Diluted solutions may be stored in refrigerat or for up to 24 hours prior to use.
[facility] acetaminoph en (TYLENOL) tablet 650 mg 2022-11 17:45: 00 10-15 17:45 :00 No [id number] 650mg 650 mg, Oral, ONCE, 1 dose, On Thu10/15/23 at 1145, Routine [facility] diphenhydrA MINE (BENADRYL) injection 25 mg 2022-11 17:45: 00 10-15 17:45 :00 No [id number] 25mg 25 mg, Slow IV Push, ONCE, 1 dose, On Thu10/15/23 at 1145, Routine [facility] atropine injection 0.25 mg 2022-11 17:30: 58 10-16 17:29 :58 No [id number] .25mg 0.25 mg, IV Push, PRN, Starting on Thu10/15/23 at 1130, Until Thu10/16/23 at 1129, Routine, Stomach cramping, acute flushing. [facility] albuterol (PROVENTIL) 2.5 mg /3 mL (0.083 %) nebulizer solution 2.5 mg 2023-1 1-16 17:30: 58 10-16 17:29 :58 No [id number] 2.5mg 2.5 mg, Inhalation , PRN - SEE INSTRUCTIO NS, Starting on Thu10/15/23 at 1130, Until Thu10/16/23 at 1129, Routine, Shortness of Breath, Wheezing, As needed for chemothera py reactions [facility] methylpredn isolone sod succ (SOLU-MEDRO L) injection 125 mg 2022-11 17:30: 58 10-16 17:29 :58 No [id number] 125mg 125 mg, Slow IV Push, Administer over 3 Minutes, PRN - SEE INSTRUCTIO NS, Starting on Thu10/15/23 at 1130, Until Thu10/16/23 at 1129, Routine, As needed for chemothera py reactions [facility] EPINEPHrine (EPIPEN AUTO-INJECT OR) 0.3 mg/0.3 mL injection 0.3 mg 2022-11 17:30: 58 10-16 17:29 :58 No [id number] .3mg 0.3 mg, Intramuscu lar, PRN - SEE INSTRUCTIO NS, Starting on Thu10/15/23 at 1130, Until Thu10/16/23 at 1129, Routine, As needed for chemothera py reactions [facility] diphenhydrA MINE (BENADRYL) injection 50 mg 2022-11 17:30: 58 10-16 17:29 :58 No [id number] 50mg 50 mg, Slow IV Push, Administer over 2 Minutes, PRN - SEE INSTRUCTIO NS, Starting on Thu10/15/23 at 1130, Until Thu10/16/23 at 1129, Routine, As needed for chemothera py reactions< br>INDICAT ION: ANAPHYLAXI S [facility] heparin lock flush (HEPARIN LOCKFLUSH(P ORCINE)(PF) ) 100 unit/mL injection 500 Units 2022-11 17:30: 58 10-16 17:29 :58 No [id number] 500U 500 Units, IV Push, PRN, Starting on Thu10/15/23 at 1130, Until Thu10/16/23 at 1129, Routine [facility] MELOXICAM 15 mg tablet 2022-11 00:00: 00 11-09 00:00 :00 No [id number] 15mg TAKE 1 TABLET BY MOUTH EVERY DAY IN THE MORNING [facility] trastuzumab -qyyp (TRAZIMERA) 480 mg in NaCl 0.9% (NS) 250 mL infusion 2022-11 16:30: 00 09-24 18:05 :00 No [id number] 6mg/kg 480 mg (rounded from 477 mg = 6 mg/kg ?79.5 kg Treatment plan Recorded weight), IV Infusion, ONCE, Administer over 60 Minutes, On Thu09/24/23 at 1130, For 1 dose
Sh ould be diluted in 0.9% Sodium Chloride only; DO NOT USE D5W. Diluted solutions may be stored in refrigerat or for up to 24 hours prior to use.
[facility] acetaminoph en (TYLENOL) tablet 650 mg 2022-11 16:00: 00 09-24 16:08 :00 No [id number] 650mg 650 mg, Oral, ONCE, 1 dose, On Thu09/24/23 at 1100, Routine [facility] diphenhydrA MINE (BENADRYL) injection 25 mg 2022-11 16:00: 00 09-24 16:08 :00 No [id number] 25mg 25 mg, Slow IV Push, ONCE, 1 dose, On Thu09/24/23 at 1100, Routine [facility] heparin lock flush (HEPARIN LOCKFLUSH(P ORCINE)(PF) ) 100 unit/mL injection 500 Units 2022-11 15:48: 27 09-25 15:47 :27 No [id number] 500U 500 Units, IV Push, PRN, Starting on Thu09/24/23 at 1048, Until Thu09/25/23 at 1047, Routine [facility] gadoteridol (PROHANCE-2 0 mL) injection 0.2 mL/kg 2022-11 14:45: 00 09-15 14:31 :00 No [id number] .2mL/kg 0.2 mL/kg, Intravenou s, ONCE, 1 dose, On Thu09/15/23 at 0945, Routine [facility] trastuzumab -qyyp (TRAZIMERA) 480 mg in NaCl 0.9% (NS) 250 mL infusion 2022-11 0 16:45: 00 09-03 17:50 :00 No [id number] 6mg/kg 480 mg (rounded from 477 mg = 6 mg/kg ?79.5 kg Treatment plan Recorded weight), IV Infusion, ONCE, Administer over 60 Minutes, On Thu09/03/23 at 1145, For 1 dose
Sh ould be diluted in 0.9% Sodium Chloride only; DO NOT USE D5W. Diluted solutions may be stored in refrigerat or for up to 24 hours prior to use.
[facility] acetaminoph en (TYLENOL) tablet 650 mg 2022-11 0 16:15: 00 09-03 16:13 :00 No [id number] 650mg 650 mg, Oral, ONCE, 1 dose, On Thu09/03/23 at 1115, Routine [facility] diphenhydrA MINE (BENADRYL) injection 25 mg 2022-11 0 16:15: 00 09-03 16:18 :00 No [id number] 25mg 25 mg, Slow IV Push, ONCE, 1 dose, On Thu09/03/23 at 1115, Routine [facility] heparin lock flush (HEPARIN LOCKFLUSH(P ORCINE)(PF) ) 100 unit/mL injection 500 Units 2022-11 005 16:10: 33 09-04 16:09 :33 No [id number] 500U 500 Units, IV Push, PRN, Starting on Thu09/03/23 at 1110, Until Thu09/04/23 at 1109, Routine [facility] DULoxetine 60 mg capsule 2022-11 004 00:00: 00 11-09 00:00 :00 No [id number] TAKE 1 CAPSULE BY MOUTH IN THE MORNING AND 1 CAPSULE IN THE EVENING [facility] trastuzumab -qyyp (TRAZIMERA) 480 mg in NaCl 0.9% (NS) 250 mL infusion 08-13 17:15: 00 08-13 18:06 :00 No [id number] 6mg/kg 480 mg (rounded from 477 mg = 6 mg/kg ?79.5 kg Treatment plan Recorded weight), IV Infusion, ONCE, Administer over 60 Minutes, On Thu08/13/23 at 1215, For 1 dose
Sh ould be diluted in 0.9% Sodium Chloride only; DO NOT USE D5W. Diluted solutions may be stored in refrigerat or for up to 24 hours prior to use.
[facility] acetaminoph en (TYLENOL) tablet 650 mg 08-13 16:45: 00 08-13 16:52 :00 No [id number] 650mg 650 mg, Oral, ONCE, 1 dose, On Thu08/13/23 at 1145, Routine [facility] diphenhydrA MINE (BENADRYL) injection 25 mg 08-13 16:45: 00 08-13 16:46 :00 No [id number] 25mg 25 mg, Slow IV Push, ONCE, 1 dose, On Thu08/13/23 at 1145, Routine [facility] heparin lock flush (HEPARIN LOCKFLUSH(P ORCINE)(PF) ) 100 unit/mL injection 500 Units 08-13 16:33: 16 08-14 16:32 :16 No [id number] 500U 500 Units, IV Push, PRN, Starting on Thu08/13/23 at 1133, Until Thu08/14/23 at 1132, Routine [facility] trastuzumab -qyyp (TRAZIMERA) 480 mg in NaCl 0.9% (NS) 250 mL infusion 07-23 17:00: 00 07-23 17:55 :00 No [id number] 6mg/kg 480 mg (rounded from 477 mg = 6 mg/kg ?79.5 kg Treatment plan Recorded weight), IV Infusion, ONCE, Administer over 60 Minutes, On Thu07/23/23 at 1200, For 1 dose
Sh ould be diluted in 0.9% Sodium Chloride only; DO NOT USE D5W. Diluted solutions may be stored in refrigerat or for up to 24 hours prior to use.
[facility] acetaminoph en (TYLENOL) tablet 650 mg 07-23 16:30: 00 07-23 16:28 :00 No [id number] 650mg 650 mg, Oral, ONCE, 1 dose, On Thu07/23/23 at 1130, Routine [facility] diphenhydrA MINE (BENADRYL) injection 25 mg 07-23 16:30: 00 07-23 16:35 :00 No [id number] 25mg 25 mg, Slow IV Push, ONCE, 1 dose, On Thu07/23/23 at 1130, Routine [facility] heparin lock flush (HEPARIN LOCKFLUSH(P ORCINE)(PF) ) 100 unit/mL injection 500 Units 07-23 16:21: 45 07-24 16:20 :45 No [id number] 500U 500 Units, IV Push, PRN, Starting on Thu07/23/23 at 1121, Until Thu07/24/23 at 1120, Routine [facility] pregabalin 75 mg capsule 07-06 00:00: 00 11-09 00:00 :00 No [id number] 150mg Take 2 capsules by mouth in the morning and 2 capsules at noon and 2 capsules in the evening. [facility] meloxicam 15 mg tablet 07-06 00:00: 00 10-05 00:00 :00 No [id number] 15mg Take 1 tablet by mouth in the morning. [facility] DULoxetine 60 mg capsule 07-06 00:00: 00 09-02 00:00 :00 No [id number] Take 1 capsule by mouth twice daily [facility] trastuzumab -qyyp (TRAZIMERA) 480 mg in NaCl 0.9% (NS) 250 mL infusion 07-02 17:00: 00 07-03 04:59 :00 No [id number] 6mg/kg 480 mg (rounded from 477 mg = 6 mg/kg ?79.5 kg Treatment plan Recorded weight), IV Infusion, ONCE, Administer over 60 Minutes, On Thu07/02/23 at 1200, For 1 dose
Sh ould be diluted in 0.9% Sodium Chloride only; DO NOT USE D5W. Diluted solutions may be stored in refrigerat or for up to 24 hours prior to use.
[facility] acetaminoph en (TYLENOL) tablet 650 mg 07-02 16:30: 00 07-02 16:28 :00 No [id number] 650mg 650 mg, Oral, ONCE, 1 dose, On Thu07/02/23 at 1130, Routine [facility] diphenhydrA MINE (BENADRYL) injection 25 mg 07-02 16:30: 00 07-02 16:31 :00 No [id number] 25mg 25 mg, Slow IV Push, ONCE, 1 dose, On Thu07/02/23 at 1130, Routine [facility] heparin lock flush (HEPARIN LOCKFLUSH(P ORCINE)(PF) ) 100 unit/mL injection 500 Units 07-02 16:27: 39 07-03 16:26 :39 No [id number] 500U 500 Units, IV Push, PRN, Starting on Thu07/02/23 at 1127, Until Thu07/03/23 at 1126, Routine [facility] cyclobenzap rine 5 mg tablet 07-01 00:00: 00 02-10 00:00 :00 No [id number] 5mg Take 1 tablet by mouth 2 (two) times daily as needed for Muscle Spasms. [facility] DULoxetine 60 mg capsule 06-24 00:00: 00 07-06 00:00 :00 No [id number] TAKE 1 CAPSULE BY MOUTH IN THE MORNING AND IN THE EVENING [facility] pregabalin 75 mg capsule 06-01 00:00: 00 07-06 00:00 :00 No [id number] 150mg Take 2 capsules by mouth in the morning and 2 capsules at noon and 2 capsules in the evening. [facility] DULoxetine 60 mg capsule 06-01 00:00: 00 06-24 00:00 :00 No [id number] 60mg Take 1 capsule by mouth in the morning and 1 capsule in the evening. [facility] trastuzumab -qyyp (TRAZIMERA) 480 mg in NaCl 0.9% (NS) 250 mL infusion 05-21 17:15: 00 05-21 18:47 :00 No [id number] 6mg/kg 480 mg (rounded from 477 mg = 6 mg/kg ?79.5 kg Treatment plan Recorded weight), IV Infusion, ONCE, Administer over 60 Minutes, On Thu05/21/23 at 1215, For 1 dose
Sh ould be diluted in 0.9% Sodium Chloride only; DO NOT USE D5W. Diluted solutions may be stored in refrigerat or for up to 24 hours prior to use.
[facility] acetaminoph en (TYLENOL) tablet 650 mg 05-21 16:45: 00 05-21 17:03 :00 No [id number] 650mg 650 mg, Oral, ONCE, 1 dose, On Thu05/21/23 at 1145, Routine [facility] diphenhydrA MINE (BENADRYL) injection 25 mg 05-21 16:45: 00 05-21 17:05 :00 No [id number] 25mg 25 mg, Slow IV Push, ONCE, 1 dose, On Khalida 05/21/23 at 1145, Routine [facility] heparin lock flush (HEPARIN LOCKFLUSH(P ORCINE)(PF) ) 100 unit/mL injection 500 Units 05-21 16:36: 44 05-22 16:35 :44 No [id number] 500U 500 Units, IV Push, PRN, Starting on Thu05/21/23 at 1136, Until Thu05/22/23 at 1135, Routine [facility] pregabalin (LYRICA) 25 mg capsule 05-21 00:00: 00 06-01 00:00 :00 No [id number] 75mg Take 3 capsules by mouth in the morning and 3 capsules in the evening. [facility] DULoxetine 60 mg capsule 05-21 00:00: 00 06-01 00:00 :00 No [id number] 60mg Take 1 capsule by mouth in the morning. [facility] trastuzumab -qyyp (TRAZIMERA) 480 mg in NaCl 0.9% (NS) 250 mL infusion 04-30 18:15: 00 04-30 18:55 :00 No [id number] 6mg/kg 480 mg (rounded from 477 mg = 6 mg/kg ?79.5 kg Treatment plan Recorded weight), IV Infusion, ONCE, Administer over 60 Minutes, On Thu04/30/23 at 1315, For 1 dose
Sh ould be diluted in 0.9% Sodium Chloride only; DO NOT USE D5W. Diluted solutions may be stored in refrigerat or for up to 24 hours prior to use.
[facility] acetaminoph en (TYLENOL) tablet 650 mg 04-30 17:45: 00 04-30 17:46 :00 No [id number] 650mg 650 mg, Oral, ONCE, 1 dose, On Thu04/30/23 at 1245, Routine [facility] diphenhydrA MINE (BENADRYL) injection 25 mg 04-30 17:45: 00 04-30 17:46 :00 No [id number] 25mg 25 mg, Slow IV Push, ONCE, 1 dose, On Khal[place] 04/30/23 at 1245, Routine [facility] heparin lock flush (HEPARIN LOCKFLUSH(P ORCINE)(PF) ) 100 unit/mL injection 500 Units 04-30 17:38: 06 05-01 17:37 :06 No [id number] 500U 500 Units, IV Push, PRN, Starting on Thu04/30/23 at 1238, Until Thu05/01/23 at 1237, Routine [facility] pregabalin (LYRICA) 25 mg capsule 04-30 00:00: 00 05-21 00:00 :00 No [id number] 75mg Take 3 capsules by mouth in the morning and 3 capsules in the evening. [facility] trastuzumab -qyyp (TRAZIMERA) 480 mg in NaCl 0.9% (NS) 250 mL infusion 04-09 17:00: 00 04-09 18:33 :00 No [id number] 6mg/kg 480 mg (rounded from 477 mg = 6 mg/kg ?79.5 kg Treatment plan Recorded weight), IV Infusion, ONCE, Administer over 60 Minutes, On Thu04/09/23 at 1200, For 1 dose
Sh ould be diluted in 0.9% Sodium Chloride only; DO NOT USE D5W. Diluted solutions may be stored in refrigerat or for up to 24 hours prior to use.
[facility] acetaminoph en (TYLENOL) tablet 650 mg 04-09 16:30: 00 04-09 16:47 :00 No [id number] 650mg 650 mg, Oral, ONCE, 1 dose, On Thu04/09/23 at 1130, Routine [facility] diphenhydrA MINE (BENADRYL) injection 25 mg 04-09 16:30: 00 04-09 16:48 :00 No [id number] 25mg 25 mg, Slow IV Push, ONCE, 1 dose, On Thu04/09/23 at 1130, Routine [facility] heparin lock flush (HEPARIN LOCKFLUSH(P ORCINE)(PF) ) 100 unit/mL injection 500 Units 04-09 16:20: 10 04-10 16:19 :10 No [id number] 500U 500 Units, IV Push, PRN, Starting on Thu04/09/23 at 1120, Until Thu04/10/23 at 1119, Routine [facility] trastuzumab -qyyp (TRAZIMERA) 480 mg in NaCl 0.9% (NS) 250 mL infusion 03-19 17:15: 00 03-19 18:30 :00 No [id number] 6mg/kg 480 mg (rounded from 477 mg = 6 mg/kg ?79.5 kg Treatment plan Recorded weight), IV Infusion, ONCE, Administer over 60 Minutes, On Thu03/19/23 at 1215, For 1 dose
Sh ould be diluted in 0.9% Sodium Chloride only; DO NOT USE D5W. Diluted solutions may be stored in refrigerat or for up to 24 hours prior to use.
[facility] acetaminoph en (TYLENOL) tablet 650 mg 03-19 16:45: 00 03-19 16:30 :00 No [id number] 650mg 650 mg, Oral, ONCE, 1 dose, On Thu03/19/23 at 1145, Routine [facility] diphenhydrA MINE (BENADRYL) injection 25 mg 03-19 16:45: 00 03-19 16:30 :00 No [id number] 25mg 25 mg, Slow IV Push, ONCE, 1 dose, On Thu03/19/23 at 1145, Routine [facility] heparin lock flush (HEPARIN LOCKFLUSH(P ORCINE)(PF) ) 100 unit/mL injection 500 Units 03-19 16:30: 50 03-20 16:29 :50 No [id number] 500U 500 Units, IV Push, PRN, Starting on Thu03/19/23 at 1130, Until Thu03/20/23 at 1129, Routine [facility] letrozole 2.5 mg tablet 03-19 00:00: 00 01-22 00:00 :00 No [id number] 2.5mg Take 1 tablet by mouth daily [facility] pregabalin (LYRICA) 25 mg capsule 03-19 00:00: 00 04-30 00:00 :00 No [id number] 50mg Take 2 capsules by mouth in the morning and 2 capsules in the evening. [facility] trastuzumab -qyyp (TRAZIMERA) 640 mg in NaCl 0.9% (NS) 250 mL infusion 02-26 17:00: 00 02-26 18:05 :00 No [id number] 8mg/kg 640 mg (rounded from 636 mg = 8 mg/kg ?79.5 kg Treatment plan Recorded weight), IV Infusion, ONCE, Administer over 60 Minutes, On Thu02/26/23 at 1200, For 1 dose
Sh ould be diluted in 0.9% Sodium Chloride only; DO NOT USE D5W. Diluted solutions may be stored in refrigerat or for up to 24 hours prior to use.
[facility] acetaminoph en (TYLENOL) tablet 650 mg 02-26 16:30: 00 02-26 16:30 :00 No [id number] 650mg 650 mg, Oral, ONCE, 1 dose, On Thu02/26/23 at 1130, Routine [facility] diphenhydrA MINE (BENADRYL) injection 25 mg 02-26 16:30: 00 02-26 16:30 :00 No [id number] 25mg 25 mg, Slow IV Push, ONCE, 1 dose, On Thu02/26/23 at 1130, Routine [facility] heparin lock flush (HEPARIN LOCKFLUSH(P ORCINE)(PF) ) 100 unit/mL injection 500 Units 02-26 16:17: 23 02-27 16:16 :23 No [id number] 500U 500 Units, IV Push, PRN, Starting on Thu02/26/23 at 1117, Until Thu02/27/23 at 1116, Routine [facility] DULoxetine 60 mg capsule -16 00:00: 00 05-21 00:00 :00 No [id number] 60mg Take 1 capsule by mouth in the morning. [facility] gabapentin 300 mg capsule 3-09 00:00: 00 03-19 00:00 :00 No [id number] 300mg Take 1 capsule by mouth in the morning and 1 capsule at noon and 1 capsule in the evening. [facility] DULoxetine 30 mg capsule 02-05 00:00: 00 02-26 00:00 :00 No [id number] 30mg Take 1 capsule by mouth in the morning. [facility] lisinopriL 20 mg tablet 3-09 00:00: 00 02-26 00:00 :00 No [id number] 20mg Take 1 tablet by mouth in the morning. [facility] traMADoL (ULTRAM) tablet 50 mg 01-25 02:15: 00 01-25 01:15 :00 No 50mg 50 mg, Oral, ONCE, 1 dose, On 01/24/23 at 2015, Routine [facility] ondansetron (ZOFRAN (PF)) injection 4 mg 01-24 23:15: 00 01-24 23:04 :00 No 4mg 4 mg, Slow IV Push, ONCE, 1 dose, On 01/24/23 at 1715, NHI [facility] morpHINE (4 mg/mL) injection 4 mg 01-24 23:15: 01-24 23:02 :00 No 4mg 4 mg, Slow IV Push, ONCE, 1 dose, On 01/24/23 at 1715, STAT [facility] traMADoL 50 mg tablet 01-24 00:00: 00 02-26 00:00 :00 No [id number] 50mg Take 1 tablet by mouth every 6 (six) hours as needed for Pain (scale 7-10). Indication s: acute pain [facility] gabapentin 300 mg capsule 01-14 00:00: 00 02-05 00:00 :00 No [id number] 300mg Take 1 capsule by mouth in the morning and 1 capsule in the evening. [facility] KCL (KLOR-CON M20) tablet 20 mEq 01-07 17:30: 00 01-07 16:45 :00 No [id number] 20meq 20 mEq, Oral, ONCE, 1 dose, On 01/07/23 at 1130, Routine [facility] PACLitaxeL (TAXOL) 128.64 mg in NaCl 0.9% (NS) 250 mL IV infusion 01-07 16:30: 00 01-07 18:01 :00 No [id number] 64mg/m2 128.64 mg (64 mg/m2 ?2.01 m2 Treatment Plan BSA from Recorded weight), IV Infusion, ONCE, Administer over 60 Minutes, On Thu01/07/23 at 1030, For 1 dose
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 &nbs p;Administ er through a 0.22 micron in-line filter and nonsorbing administra tion set.
[facility] trastuzumab -qyyp (TRAZIMERA) 170 mg in NaCl 0.9% (NS) 250 mL infusion 01-07 15:30: 00 01-07 16:45 :00 No [id number] 2mg/kg 170 mg (rounded from 170.8 mg = 2 mg/kg ?85.4 kg Treatment plan Recorded weight), IV Infusion, ONCE, Administer over 60 Minutes, On Thu01/07/23 at 0930, For 1 dose
Sh ould be diluted in 0.9% Sodium Chloride only; DO NOT USE D5W. Diluted solutions may be stored in refrigerat or for up to 24 hours prior to use.
[facility] acetaminoph en (TYLENOL) tablet 650 mg 01-07 15:00: 00 01-07 14:59 :00 No [id number] 650mg 650 mg, Oral, ONCE, 1 dose, On Thu01/07/23 at 0900, Routine [facility] famotidine (PEPCID (PF)) injection 20 mg 01-07 15:00: 00 01-07 15:06 :00 No [id number] 20mg 20 mg, Slow IV Push, ONCE, 1 dose, On Thu01/07/23 at 0900, Routine [facility] diphenhydrA MINE (BENADRYL) injection 50 mg 01-07 15:00: 00 01-07 15:00 :00 No [id number] 50mg 50 mg, Slow IV Push, ONCE, 1 dose, On Thu01/07/23 at 0900, Routine [facility] dexamethaso ne sod phos PF injection 10 mg 01-07 15:00: 00 01-07 15:10 :00 No [id number] 10mg 10 mg, Slow IV Push, ONCE, 1 dose, On Thu01/07/23 at 0900, 1 mL [facility] NaCl 0.9% (NS) bolus infusion 500 mL 01-07 15:00: 00 01-07 15:30 :00 No [id number] 500mL at 999 mL/hr, 500 mL, IV Piggyback, ONCE, 1 dose, On Thu01/07/23 at 0900, STAT [facility] heparin lock flush (HEPARIN LOCKFLUSH(P ORCINE)(PF) ) 100 unit/mL injection 500 Units 01-07 14:52: 29 01-08 14:51 :29 No [id number] 500U 500 Units, IV Push, PRN, Starting on Thu01/07/23 at 0852, Until [place] 01/08/23 at 0851, Routine [facility] gabapentin 300 mg capsule 01-07 00:00: 00 01-14 00:00 :00 No [id number] 300mg Take 1 capsule by mouth at bedtime. [facility] PACLitaxeL (TAXOL) 160.8 mg in NaCl 0.9% (NS) 250 mL IV infusion 12-31 19:45: 00 12-31 21:01 :00 No [id number] 80mg/m2 160.8 mg (80 mg/m2 ?2.01 m2 Treatment Plan BSA from Recorded weight), IV Infusion, ONCE, Administer over 60 Minutes, On Thu12/31/22 at 1345, For 1 dose
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 &nbs p;Administ er through a 0.22 micron in-line filter and nonsorbing administra tion set.
[facility] trastuzumab -qyyp (TRAZIMERA) 170 mg in NaCl 0.9% (NS) 250 mL infusion 12-31 18:45: 00 12-31 20:01 :00 No [id number] 2mg/kg 170 mg (rounded from 170.8 mg = 2 mg/kg ?85.4 kg Treatment plan Recorded weight), IV Infusion, ONCE, Administer over 60 Minutes, On Thu12/31/22 at 1245, For 1 dose
Sh ould be diluted in 0.9% Sodium Chloride only; DO NOT USE D5W. Diluted solutions may be stored in refrigerat or for up to 24 hours prior to use.
[facility] atropine injection 0.25 mg 12-31 18:34: 36 01-01 18:33 :36 No [id number] .25mg 0.25 mg, IV Push, PRN, Starting on Thu12/31/22 at 1234, Until [place] 01/01/23 at 1233, Routine, Stomach cramping, acute flushing. [facility] albuterol (PROVENTIL) 2.5 mg /3 mL (0.083 %) nebulizer solution 2.5 mg 12-31 18:34: 36 01-01 18:33 :36 No [id number] 2.5mg 2.5 mg, Inhalation , PRN - SEE INSTRUCTIO NS, Starting on Thu12/31/22 at 1234, Until [place] 01/01/23 at 1233, Routine, Shortness of Breath, Wheezing, As needed for chemothera py reactions [facility] methylpredn isolone sod succ (SOLU-MEDRO L) injection 125 mg 12-31 18:34: 36 01-01 18:33 :36 No [id number] 125mg 125 mg, Slow IV Push, Administer over 3 Minutes, PRN - SEE INSTRUCTIO NS, Starting on Thu12/31/22 at 1234, Until [place] 01/01/23 at 1233, Routine, As needed for chemothera py reactions [facility] EPINEPHrine (EPIPEN AUTO-INJECT OR) 0.3 mg/0.3 mL injection 0.3 mg 12-31 18:34: 36 01-01 18:33 :36 No [id number] .3mg 0.3 mg, Intramuscu lar, PRN - SEE INSTRUCTIO NS, Starting on Thu12/31/22 at 1234, Until [place] 01/01/23 at 1233, Routine, As needed for chemothera py reactions [facility] diphenhydrA MINE (BENADRYL) injection 50 mg 12-31 18:34: 36 01-01 18:33 :36 No [id number] 50mg 50 mg, Slow IV Push, Administer over 2 Minutes, PRN - SEE INSTRUCTIO NS, Starting on Thu12/31/22 at 1234, Until [place] 01/01/23 at 1233, Routine, As needed for chemothera py reactions< br>INDICAT ION: ANAPHYLAXI S [facility] proCHLORper azine (COMPAZINE) tablet 10 mg 12-31 18:34: 36 01-01 18:33 :36 No [id number] 10mg 10 mg, Oral, Q6HPRN, Starting on Thu12/31/22 at 1234, Until [place] 01/01/23 at 1233, Routine, Nausea and Vomiting (N/V) [facility] heparin lock flush (HEPARIN LOCKFLUSH(P ORCINE)(PF) ) 100 unit/mL injection 500 Units 12-31 18:34: 36 01-01 18:33 :36 No [id number] 500U 500 Units, IV Push, PRN, Starting on Thu12/31/22 at 1234, Until [place] 01/01/23 at 1233, Routine [facility] acetaminoph en (TYLENOL) tablet 650 mg 12-31 18:15: 00 12-31 18:35 :00 No [id number] 650mg 650 mg, Oral, ONCE, 1 dose, On Thu12/31/22 at 1215, Routine [facility] famotidine (PEPCID (PF)) injection 20 mg 12-31 18:15: 00 12-31 18:39 :00 No [id number] 20mg 20 mg, Slow IV Push, ONCE, 1 dose, On Thu12/31/22 at 1215, Routine [facility] diphenhydrA MINE (BENADRYL) injection 50 mg 12-31 18:15: 00 12-31 18:36 :00 No [id number] 50mg 50 mg, Slow IV Push, ONCE, 1 dose, On Thu12/31/22 at 1215, Routine [facility] dexamethaso ne sod phos PF injection 10 mg 12-31 18:15: 00 12-31 18:44 :00 No [id number] 10mg 10 mg, Slow IV Push, ONCE, 1 dose, On Thu12/31/22 at 1215, 1 mL [facility] NaCl 0.9% (NS) bolus infusion 500 mL 12-31 18:15: 00 12-31 21:05 :00 No [id number] 500mL at 999 mL/hr, 500 mL, IV Piggyback, ONCE, 1 dose, On Thu12/31/22 at 1215, STAT [facility] PACLitaxeL (TAXOL) 160.8 mg in NaCl 0.9% (NS) 250 mL IV infusion 12-24 17:45: 00 12-24 19:00 :00 No [id number] 80mg/m2 160.8 mg (80 mg/m2 ?2.01 m2 Treatment Plan BSA from Recorded weight), IV Infusion, ONCE, Administer over 60 Minutes, On Thu12/24/22 at 1145, For 1 dose
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 &nbs p;Administ er through a 0.22 micron in-line filter and nonsorbing administra tion set.
[facility] trastuzumab -qyyp (TRAZIMERA) 170 mg in NaCl 0.9% (NS) 250 mL infusion 12-24 16:45: 00 12-24 17:47 :00 No [id number] 2mg/kg 170 mg (rounded from 170.8 mg = 2 mg/kg ?85.4 kg Treatment plan Recorded weight), IV Infusion, ONCE, Administer over 60 Minutes, On Thu12/24/22 at 1045, For 1 dose
Sh ould be diluted in 0.9% Sodium Chloride only; DO NOT USE D5W. Diluted solutions may be stored in refrigerat or for up to 24 hours prior to use.
[facility] acetaminoph en (TYLENOL) tablet 650 mg 12-24 16:15: 00 12-24 16:27 :00 No [id number] 650mg 650 mg, Oral, ONCE, 1 dose, On Thu12/24/22 at 1015, Routine [facility] famotidine (PEPCID (PF)) injection 20 mg 12-24 16:15: 00 12-24 16:31 :00 No [id number] 20mg 20 mg, Slow IV Push, ONCE, 1 dose, On Thu12/24/22 at 1015, Routine [facility] diphenhydrA MINE (BENADRYL) injection 50 mg 12-24 16:15: 00 12-24 16:33 :00 No [id number] 50mg 50 mg, Slow IV Push, ONCE, 1 dose, On Thu12/24/22 at 1015, Routine [facility] dexamethaso ne sod phos PF injection 10 mg 12-24 16:15: 00 12-24 16:28 :00 No [id number] 10mg 10 mg, Slow IV Push, ONCE, 1 dose, On Thu12/24/22 at 1015, 1 mL [facility] NaCl 0.9% (NS) bolus infusion 500 mL 12-24 16:15: 00 12-24 16:57 :00 No [id number] 500mL at 999 mL/hr, 500 mL, IV Piggyback, ONCE, 1 dose, On Thu12/24/22 at 1015, STAT [facility] proCHLORper azine (COMPAZINE) tablet 10 mg 12-24 16:05: 35 12-25 16:04 :35 No [id number] 10mg 10 mg, Oral, Q6HPRN, Starting on Thu12/24/22 at 1005, Until Khalida 12/25/22 at 1004, Routine, Nausea and Vomiting (N/V) [facility] heparin lock flush (HEPARIN LOCKFLUSH(P ORCINE)(PF) ) 100 unit/mL injection 500 Units 12-24 16:05: 35 12-25 16:04 :35 No [id number] 500U 500 Units, IV Push, PRN, Starting on Thu12/24/22 at 1005, Until Thu12/25/22 at 1004, Routine [facility] PACLitaxeL (TAXOL) 160.8 mg in NaCl 0.9% (NS) 250 mL IV infusion 12-17 17:45: 00 12-17 19:35 :00 No [id number] 80mg/m2 160.8 mg (80 mg/m2 ?2.01 m2 Treatment Plan BSA from Recorded weight), IV Infusion, ONCE, Administer over 60 Minutes, On Thu12/17/22 at 1145, For 1 dose
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 &nbs p;Administ er through a 0.22 micron in-line filter and nonsorbing administra tion set.
[facility] ondansetron (ZOFRAN (PF)) injection 8 mg 12-17 17:15: 00 12-17 16:55 :00 No [id number] 8mg 8 mg, Slow IV Push, ONCE, 1 dose, On Thu12/17/22 at 1115, Routine [facility] atropine injection 0.25 mg 12-17 17:07: 52 12-18 17:06 :52 No [id number] .25mg 0.25 mg, IV Push, PRN, Starting on Thu12/17/22 at 1107, Until Thu12/18/22 at 1106, Routine, Stomach cramping, acute flushing. [facility] albuterol (PROVENTIL) 2.5 mg /3 mL (0.083 %) nebulizer solution 2.5 mg 12-17 17:07: 52 12-18 17:06 :52 No [id number] 2.5mg 2.5 mg, Inhalation , PRN - SEE INSTRUCTIO NS, Starting on Thu12/17/22 at 1107, Until Khalida 12/18/22 at 1106, Routine, Shortness of Breath, Wheezing, As needed for chemothera py reactions [facility] methylpredn isolone sod succ (SOLU-MEDRO L) injection 125 mg 12-17 17:07: 52 12-18 17:06 :52 No [id number] 125mg 125 mg, Slow IV Push, Administer over 3 Minutes, PRN - SEE INSTRUCTIO NS, Starting on Thu12/17/22 at 1107, Until Thu12/18/22 at 1106, Routine, As needed for chemothera py reactions [facility] EPINEPHrine (EPIPEN AUTO-INJECT OR) 0.3 mg/0.3 mL injection 0.3 mg 12-17 17:07: 52 12-18 17:06 :52 No [id number] .3mg 0.3 mg, Intramuscu lar, PRN - SEE INSTRUCTIO NS, Starting on Thu12/17/22 at 1107, Until Khalida 12/18/22 at 1106, Routine, As needed for chemothera py reactions [facility] diphenhydrA MINE (BENADRYL) injection 50 mg 12-17 17:07: 52 12-18 17:06 :52 No [id number] 50mg 50 mg, Slow IV Push, Administer over 2 Minutes, PRN - SEE INSTRUCTIO NS, Starting on Thu12/17/22 at 1107, Until Thu12/18/22 at 1106, Routine, As needed for chemothera py reactions< br>INDICAT ION: ANAPHYLAXI S [facility] trastuzumab -qyyp (TRAZIMERA) 170 mg in NaCl 0.9% (NS) 250 mL infusion 12-17 16:45: 00 12-17 18:30 :00 No [id number] 2mg/kg 170 mg (rounded from 170.8 mg = 2 mg/kg ?85.4 kg Treatment plan Recorded weight), IV Infusion, ONCE, Administer over 60 Minutes, On Thu12/17/22 at 1045, For 1 dose
Sh ould be diluted in 0.9% Sodium Chloride only; DO NOT USE D5W. Diluted solutions may be stored in refrigerat or for up to 24 hours prior to use.
[facility] acetaminoph en (TYLENOL) tablet 650 mg 12-17 16:15: 00 12-17 16:55 :00 No [id number] 650mg 650 mg, Oral, ONCE, 1 dose, On Thu12/17/22 at 1015, Routine [facility] famotidine (PEPCID (PF)) injection 20 mg 12-17 16:15: 00 12-17 16:53 :00 No [id number] 20mg 20 mg, Slow IV Push, ONCE, 1 dose, On Thu12/17/22 at 1015, Routine [facility] diphenhydrA MINE (BENADRYL) injection 50 mg 12-17 16:15: 00 12-17 16:50 :00 No [id number] 50mg 50 mg, Slow IV Push, ONCE, 1 dose, On Thu12/17/22 at 1015, Routine [facility] dexamethaso ne sod phos PF injection 10 mg 12-17 16:15: 00 12-17 16:57 :00 No [id number] 10mg 10 mg, Slow IV Push, ONCE, 1 dose, On Thu12/17/22 at 1015, 1 mL [facility] proCHLORper azine (COMPAZINE) tablet 10 mg 12-17 16:13: 24 12-18 16:12 :24 No [id number] 10mg 10 mg, Oral, Q6HPRN, Starting on Thu12/17/22 at 1013, Until Khalida 12/18/22 at 1012, Routine, Nausea and Vomiting (N/V) [facility] heparin lock flush (HEPARIN LOCKFLUSH(P ORCINE)(PF) ) 100 unit/mL injection 500 Units 12-17 16:13: 24 12-18 16:12 :24 No [id number] 500U 500 Units, IV Push, PRN, Starting on Thu12/17/22 at 1013, Until Khalida 12/18/22 at 1012, Routine [facility] ondansetron 4 mg disintegrat ing tablet 12-17 00:00: 00 01-22 00:00 :00 No [id number] 4mg Take 1 tablet by mouth every 8 (eight) hours as needed for Nausea and Vomiting (N/V). [facility] PACLitaxeL (TAXOL) 160.8 mg in NaCl 0.9% (NS) 250 mL IV infusion 12-10 17:00: 00 12-10 18:30 :00 No [id number] 80mg/m2 160.8 mg (80 mg/m2 ?2.01 m2 Treatment Plan BSA from Recorded weight), IV Infusion, ONCE, Administer over 60 Minutes, On Thu12/10/22 at 1100, For 1 dose
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 &nbs p;Administ er through a 0.22 micron in-line filter and nonsorbing administra tion set.
[facility] trastuzumab -qyyp (TRAZIMERA) 170 mg in NaCl 0.9% (NS) 250 mL infusion 12-10 16:00: 00 12-10 17:28 :00 No [id number] 2mg/kg 170 mg (rounded from 170.8 mg = 2 mg/kg ?85.4 kg Treatment plan Recorded weight), IV Infusion, ONCE, Administer over 60 Minutes, On Thu12/10/22 at 1000, For 1 dose
Sh ould be diluted in 0.9% Sodium Chloride only; DO NOT USE D5W. Diluted solutions may be stored in refrigerat or for up to 24 hours prior to use.
[facility] acetaminoph en (TYLENOL) tablet 650 mg 12-10 15:30: 00 12-10 15:45 :00 No [id number] 650mg 650 mg, Oral, ONCE, 1 dose, On Thu12/10/22 at 0930, Routine [facility] famotidine (PEPCID (PF)) injection 20 mg 12-10 15:30: 00 12-10 15:46 :00 No [id number] 20mg 20 mg, Slow IV Push, ONCE, 1 dose, On Thu12/10/22 at 0930, Routine [facility] diphenhydrA MINE (BENADRYL) injection 50 mg 12-10 15:30: 00 12-10 15:49 :00 No [id number] 50mg 50 mg, Slow IV Push, ONCE, 1 dose, On Thu12/10/22 at 0930, Routine [facility] dexamethaso ne sod phos PF injection 10 mg 12-10 15:30: 00 12-10 15:53 :00 No [id number] 10mg 10 mg, Slow IV Push, ONCE, 1 dose, On Thu12/10/22 at 0930, 1 mL [facility] proCHLORper azine (COMPAZINE) tablet 10 mg 12-10 15:25: 42 12-11 15:24 :42 No [id number] 10mg 10 mg, Oral, Q6HPRN, Starting on Thu12/10/22 at 0925, Until Thu12/11/22 at 0924, Routine, Nausea and Vomiting (N/V) [facility] heparin lock flush (HEPARIN LOCKFLUSH(P ORCINE)(PF) ) 100 unit/mL injection 500 Units 12-10 15:25: 42 12-11 15:24 :42 No [id number] 500U 500 Units, IV Push, PRN, Starting on Thu12/10/22 at 0925, Until Thu12/11/22 at 0924, Routine [facility] PACLitaxeL (TAXOL) 160.8 mg in NaCl 0.9% (NS) 250 mL IV infusion 12-04 18:15: 00 12-04 20:12 :00 No [id number] 80mg/m2 160.8 mg (80 mg/m2 ?2.01 m2 Treatment Plan BSA from Recorded weight), IV Infusion, ONCE, Administer over 60 Minutes, On Thu12/04/22 at 1215, For 1 dose
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 &nbs p;Administ er through a 0.22 micron in-line filter and nonsorbing administra tion set.
[facility] trastuzumab -qyyp (TRAZIMERA) 340 mg in NaCl 0.9% (NS) 250 mL infusion 12-04 17:15: 00 12-04 18:55 :00 No [id number] 4mg/kg 340 mg (rounded from 341.6 mg = 4 mg/kg ?85.4 kg Treatment plan Recorded weight), IV Infusion, ONCE, Administer over 60 Minutes, On Khalida 12/04/22 at 1115, For 1 dose
Sh ould be diluted in 0.9% Sodium Chloride only; DO NOT USE D5W. Diluted solutions may be stored in refrigerat or for up to 24 hours prior to use.
[facility] acetaminoph en (TYLENOL) tablet 650 mg 12-04 16:45: 00 12-04 16:48 :00 No [id number] 650mg 650 mg, Oral, ONCE, 1 dose, On Khalida 12/04/22 at 1045, Routine [facility] famotidine (PEPCID (PF)) injection 20 mg 12-04 16:45: 00 12-04 16:48 :00 No [id number] 20mg 20 mg, Slow IV Push, ONCE, 1 dose, On Khalida 12/04/22 at 1045, Routine [facility] diphenhydrA MINE (BENADRYL) injection 50 mg 12-04 16:45: 00 12-04 16:58 :00 No [id number] 50mg 50 mg, Slow IV Push, ONCE, 1 dose, On Khalida 12/04/22 at 1045, Routine [facility] dexamethaso ne sod phos PF injection 10 mg 12-04 16:45: 00 12-04 16:52 :00 No [id number] 10mg 10 mg, Slow IV Push, ONCE, 1 dose, On Khalida 12/04/22 at 1045, 1 mL [facility] heparin lock flush (HEPARIN LOCKFLUSH(P ORCINE)(PF) ) 100 unit/mL injection 500 Units 12-04 16:33: 44 12-05 16:32 :44 No [id number] 500U 500 Units, IV Push, PRN, Starting on Khalida 12/04/22 at 1033, Until 12/05/22 at 1032, Routine [facility] lactated ringers IV infusion 500 mL 2021-11 17:30: 00 Yes 500mL at 42 mL/hr, 500 mL, IV Infusion, CONTINUOUS , Starting on Khalida 11/27/22 at 1130, Until Discontinu ed, Routine, PACU [facility] meperidine (DEMEROL) injection 12.5 mg 2021-11 17:28: 53 Yes 12.5mg 12.5 mg, Slow IV Push, PRN, 1 dose, Starting on Khalida 11/27/22 at 1128, Until Discontinu ed, Routine, Shivering, PACU
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 : GUILLERMO WILKS [facility] ondansetron (ZOFRAN (PF)) injection 4 mg 2021-11 17:28: 53 Yes 4mg 4 mg, Slow IV Push, PRN, 1 dose, Starting on Khalida 11/27/22 at 1128, Until Discontinu ed, Routine, Nausea and Vomiting (N/V), PACU [facility] simethicone (GAS RELIEF (SIMETHICON E)) 40 mg/0.6 mL drops 2021-11 17:05: 00 Yes PRN, Starting on Khalida 11/27/22 at 1105, Until Discontinu ed, Routine, Intra-op [facility] PANTOPRAZOL E 40 mg EC tablet 2021-11 00:00: 00 02-10 00:00 :00 No [id number] 40mg TAKE 1 TABLET BY MOUTH IN THE MORNING AND 1 TABLET IN THE EVENING. [facility] peg-electro lyte soln 236-22.74-6 .74 -5.86 gram solution 2021-11 2-14 00:00: 00 01-07 00:00 :00 No [id number] Take as directed before colonoscop y [facility] lidocaine-e pinephrine (XYLOCAINE W/EPINEPHRI NE) 2 %-1:200,000 injection 2021-11 18:22: 00 10-29 18:31 :41 No PRN, Starting on Thu10/29/22 at 1222, Until Discontinu ed, Routine [facility] FENTanyl PF (SUBLIMAZE (PF)) injection 2021-11 18:20: 00 10-29 18:29 :55 No Slow IV Push, PRN, Starting on Thu10/29/22 at 1220, Until Discontinu ed, Routine [facility] midazolam (VERSED) injection 2021-11 18:20: 00 10-29 18:29 :40 No IV Push, PRN, Starting on Thu10/29/22 at 1220, Until Discontinu ed, Routine [facility] ceFAZolin (ANCEF) injection 2021-11 18:10: 00 10-29 18:10 :00 No Slow IV Push, PRN, Starting on Thu10/29/22 at 1210, Until Discontinu ed, NHI [facility] Omeprazole Magnesium 20 mg capsule 2021-11 00:00: 00 11-21 05:59 :00 No [id number] 20mg Take 1 capsule by mouth in the morning for 30 days. [facility] pantoprazol e (PROTONIX) 40 mg EC tablet 2021-11 00:00: 00 11-13 00:00 :00 No [id number] 40mg Take 1 tablet by mouth in the morning and 1 tablet in the evening. [facility] iopamidol (ISOVUE 370-500 mL) injection 100 mL 2021-11 18:30: 00 10-19 18:45 :00 No [id number] 100mL 100 mL, Intravenou s, ONCE, 1 dose, On 10/19/22 at 1245, Routine [facility] zolpidem (AMBIEN) 5 mg tablet 2021-11 00:00: 00 02-26 00:00 :00 No [id number] 5mg Take 1 tablet by mouth at bedtime as needed for Insomnia. [facility] PACLitaxeL (TAXOL) 160.8 mg in NaCl 0.9% (NS) 250 mL IV infusion 2021-11 17:15: 00 10-14 19:00 :00 No [id number] 80mg/m2 160.8 mg (80 mg/m2 ?2.01 m2 Treatment Plan BSA from Recorded weight), IV Infusion, ONCE, Administer over 60 Minutes, On Thu10/14/22 at 1115, For 1 dose
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 &nbs p;Administ er through a 0.22 micron in-line filter and nonsorbing administra tion set.
[facility] trastuzumab -qyyp (TRAZIMERA) 170 mg in NaCl 0.9% (NS) 250 mL infusion 2021-11 16:15: 00 10-14 17:35 :00 No [id number] 2mg/kg 170 mg (rounded from 170.8 mg = 2 mg/kg ?85.4 kg Treatment plan Recorded weight), IV Infusion, ONCE, Administer over 60 Minutes, On Thu10/14/22 at 1015, For 1 dose
Sh ould be diluted in 0.9% Sodium Chloride only; DO NOT USE D5W. Diluted solutions may be stored in refrigerat or for up to 24 hours prior to use.
[facility] acetaminoph en (TYLENOL) tablet 650 mg 2021-11 15:45: 00 10-14 15:45 :00 No [id number] 650mg 650 mg, Oral, ONCE, 1 dose, On Thu10/14/22 at 0945, Routine [facility] famotidine (PEPCID (PF)) injection 20 mg 2021-11 15:45: 00 10-14 15:48 :00 No [id number] 20mg 20 mg, Slow IV Push, ONCE, 1 dose, On Thu10/14/22 at 0945, Routine [facility] diphenhydrA MINE (BENADRYL) injection 50 mg 2021-11 15:45: 00 10-14 15:45 :00 No [id number] 50mg 50 mg, Slow IV Push, ONCE, 1 dose, On Thu10/14/22 at 0945, Routine [facility] dexamethaso ne sod phos PF injection 10 mg 2021-11 15:45: 00 10-14 15:50 :00 No [id number] 10mg 10 mg, Slow IV Push, ONCE, 1 dose, On Thu10/14/22 at 0945, 1 mL [facility] atropine injection 0.25 mg 2021-11 15:43: 01 10-15 15:42 :01 No [id number] .25mg 0.25 mg, IV Push, PRN, Starting on Thu10/14/22 at 0943, Until Thu10/15/22 at 0942, Routine, Stomach cramping, acute flushing. [facility] albuterol (PROVENTIL) 2.5 mg /3 mL (0.083 %) nebulizer solution 2.5 mg 2021-11 15:43: 01 10-15 15:42 :01 No [id number] 2.5mg 2.5 mg, Inhalation , PRN - SEE INSTRUCTIO NS, Starting on Thu10/14/22 at 0943, Until Thu10/15/22 at 0942, Routine, Shortness of Breath, Wheezing, As needed for chemothera py reactions [facility] methylpredn isolone sod succ (SOLU-MEDRO L) injection 125 mg 2021-11 15:43: 01 10-15 15:42 :01 No [id number] 125mg 125 mg, Slow IV Push, Administer over 3 Minutes, PRN - SEE INSTRUCTIO NS, Starting on Thu10/14/22 at 0943, Until Thu10/15/22 at 0942, Routine, As needed for chemothera py reactions [facility] EPINEPHrine (EPIPEN AUTO-INJECT OR) 0.3 mg/0.3 mL injection 0.3 mg 2021-11 15:43: 01 10-15 15:42 :01 No [id number] .3mg 0.3 mg, Intramuscu lar, PRN - SEE INSTRUCTIO NS, Starting on Thu10/14/22 at 0943, Until Thu10/15/22 at 0942, Routine, As needed for chemothera py reactions [facility] diphenhydrA MINE (BENADRYL) injection 50 mg 2021-11 15:43: 01 10-15 15:42 :01 No [id number] 50mg 50 mg, Slow IV Push, Administer over 2 Minutes, PRN - SEE INSTRUCTIO NS, Starting on Thu10/14/22 at 0943, Until Thu10/15/22 at 0942, Routine, As needed for chemothera py reactions< br>INDICAT ION: ANAPHYLAXI S [facility] proCHLORper azine (COMPAZINE) tablet 10 mg 2021-11 15:43: 01 10-15 15:42 :01 No [id number] 10mg 10 mg, Oral, Q6HPRN, Starting on Thu10/14/22 at 0943, Until Thu10/15/22 at 0942, Routine, Nausea and Vomiting (N/V) [facility] heparin lock flush (HEPARIN LOCKFLUSH(P ORCINE)(PF) ) 100 unit/mL injection 500 Units 2021-11 15:43: 01 10-15 15:42 :01 No [id number] 500U 500 Units, IV Push, PRN, Starting on Thu10/14/22 at 0943, Until Thu10/15/22 at 0942, Routine [facility] methylPREDN ISolone acetate (DEPO-MEDRO L) 80 mg/mL 80 mg, lidocaine 1% (PF) (XYLOCAINE) 3 mL, bupivacaine (preserv free) 0.5% (SENSORCAIN E MPF) 0.5 % (5 mg/mL) 6 mL 10 mL injection 2021-11 20:30: 00 10-13 19:42 :00 No [id number] 80mg [facility] methylPREDN ISolone acetate (DEPO-MEDRO L) 80 mg/mL 80 mg, lidocaine 1% (PF) (XYLOCAINE) 3 mL, bupivacaine (preserv free) 0.5% (SENSORCAIN E MPF) 0.5 % (5 mg/mL) 6 mL 10 mL injection 2021-11 20:30: 00 10-13 19:42 :00 No [id number] 80mg Intra-tanya cular, ONCE, 1 dose, On Thu10/13/22 at 1430, 10 mL [facility] alteplase (CATHFLO ACTIVASE) injection 2 mg 2021-11 19:45: 00 10-07 19:23 :00 No [id number] 2mg 2 mg, INTRA-CATH ETER, Administer over 0.5 Hours, ONCE, 1 dose, On Thu10/07/22 at 1345, Routine [facility] PACLitaxeL (TAXOL) 160.8 mg in NaCl 0.9% (NS) 250 mL IV infusion 2021-11 18:45: 00 10-07 20:58 :00 No [id number] 80mg/m2 160.8 mg (80 mg/m2 ?2.01 m2 Treatment Plan BSA from Recorded weight), IV Infusion, ONCE, Administer over 60 Minutes, On Thu10/07/22 at 1245, For 1 dose
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 &nbs p;Administ er through a 0.22 micron in-line filter and nonsorbing administra tion set.
[facility] alteplase (CATHFLO ACTIVASE) injection 2 mg 2021-11 17:00: 00 10-07 16:56 :00 No [id number] 2mg 2 mg, Chest Tube, Administer over 0.5 Hours, ONCE, 1 dose, On Thu10/07/22 at 1100, Routine [facility] trastuzumab -qyyp (TRAZIMERA) 340 mg in NaCl 0.9% (NS) 250 mL infusion 2021-11 16:45: 00 10-07 19:42 :00 No [id number] 4mg/kg 340 mg (rounded from 341.6 mg = 4 mg/kg ?85.4 kg Treatment plan Recorded weight), IV Infusion, ONCE, Administer over 120 Minutes, On Thu10/07/22 at 1045, For 1 dose
Sh ould be diluted in 0.9% Sodium Chloride only; DO NOT USE D5W. Diluted solutions may be stored in refrigerat or for up to 24 hours prior to use.
[facility] heparin lock flush (HEPARIN LOCKFLUSH(P ORCINE)(PF) ) 100 unit/mL injection 500 Units 2021-11 16:25: 47 10-08 16:24 :47 No [id number] 500U 500 Units, IV Push, PRN, Starting on Thu10/07/22 at 1025, Until Thu10/08/22 at 1024, Routine [facility] acetaminoph en (TYLENOL) tablet 650 mg 2021-11 16:15: 00 10-07 16:26 :00 No [id number] 650mg 650 mg, Oral, ONCE, 1 dose, On Thu10/07/22 at 1015, Routine [facility] famotidine (PEPCID (PF)) injection 20 mg 2021-11 16:15: 00 10-07 16:22 :00 No [id number] 20mg 20 mg, Slow IV Push, ONCE, 1 dose, On Thu10/07/22 at 1015, Routine [facility] diphenhydrA MINE (BENADRYL) injection 50 mg 2021-11 16:15: 00 10-07 16:24 :00 No [id number] 50mg 50 mg, Slow IV Push, ONCE, 1 dose, On Thu10/07/22 at 1015, Routine [facility] dexamethaso ne sod phos PF injection 10 mg 2021-11 16:15: 00 10-07 16:28 :00 No [id number] 10mg 10 mg, Slow IV Push, ONCE, 1 dose, On Thu10/07/22 at 1015, 1 mL [facility] naproxen (NAPROSYN) 500 mg tablet 2021-11 00:00: 10-29 00:00 :00 No [id number] 500mg Take 1 tablet by mouth in the morning and 1 tablet in the evening. Take with meals. [facility] Dimenhydrin ate (DRAMAMINE) 50 mg Chew 2021-11 00:00: 09-24 04:59 :00 No [id number] 50mg Take 50 mg by mouth at bedtime for 14 days. [facility] HYDROcodone -acetaminop hen 2.5-325 mg Tab 2021-11 00:00: 00 09-17 04:59 :00 No [id number] 1{tbl} Take 1 tablet by mouth 2 (two) times daily for 7 days. Indication s: acute pain [facility] loperamide 2 mg capsule 2021-11 0-05 00:00: 00 02-26 00:00 :00 No [id number] 2mg Take 1 capsule by mouth every 4 (four) hours as needed for Diarrhea. [facility] proCHLORper azine 10 mg tablet 2021-11 0- 00:00: 00 12-17 00:00 :00 No [id number] 10mg Take 1 tablet by mouth every 6 (six) hours as needed for Nausea and Vomiting (N/V). [facility] proMETHazin e 25 mg suppository 2021-11 0-05 00:00: 00 10-29 00:00 :00 No [id number] 25mg Insert 1 Suppositor y into rectum every 4 (four) hours as needed for Nausea and Vomiting (N/V). [facility] traMADoL 50 mg tablet 9- 00:00: 00 01-24 00:00 :00 No [id number] 50mg Take 1 tablet by mouth every 6 (six) hours as needed for Pain (scale 4-6) or Pain (scale 7-10). Indication s: acute pain [facility] zolpidem (AMBIEN) 5 mg tablet 08-11 00:00: 00 10-13 00:00 :00 No [id number] 5mg Take 1 tablet by mouth at bedtime as needed for Insomnia. [facility] traMADoL 50 mg tablet 08-11 00:00: 00 08-19 04:59 :00 No [id number] 50mg Take 1 tablet by mouth every 6 (six) hours as needed for Pain (scale 7-10) for up to 7 days. Indication s: acute pain [facility] celecoxib 100 mg capsule 08-06 00:00: 00 08-21 04:59 :00 No [id number] 100mg Take 1 capsule by mouth in the morning and 1 capsule in the evening. Take with meals. Do all this for 14 days. [facility] docusate 100 mg capsule 08-06 00:00: 00 08-21 04:59 :00 No [id number] 100mg Take 1 capsule by mouth in the morning and 1 capsule in the evening. Do all this for 14 days. [facility] melatonin 3 mg tablet 08-06 00:00: 00 08-21 04:59 :00 No [id number] 3mg Take 1 tablet by mouth at bedtime for 14 days. [facility] proMETHazin e 25 mg tablet 08-06 00:00: 00 08-21 04:59 :00 No [id number] 25mg Take 1 tablet by mouth every 4 (four) hours as needed for Nausea and Vomiting (N/V) for up to 14 days. [facility] sulfamethox azole-trime thoprim 800-160 mg per tablet 08-06 00:00: 00 08-14 04:59 :00 No [id number] 1{tbl} Take 1 tablet by mouth in the morning and 1 tablet in the evening. Do all this for 7 days. [facility] HYDROcodone -acetaminop hen (NORCO) 5-325 mg tablet 08-06 00:00: 00 08-14 04:59 :00 No [id number] 1{tbl} Take 1 tablet by mouth every 6 (six) hours as needed for Pain (scale 7-10) for up to 7 days. Indication s: acute pain [facility] traMADoL 50 mg tablet 08-06 00:00: 00 08-14 04:59 :00 No [id number] 50mg Take 1 tablet by mouth every 6 (six) hours as needed for Pain (scale 4-6) for up to 7 days. Indication s: acute pain [facility] HYDROXYZINE 25 mg tablet 16 00:00: 00 02-26 00:00 :00 No [id number] TAKE BY MOUTH 1 TABLET EVERY 6 HOURS NEEDED FOR ITCHING ( CAN TAKE 2 TAB BEFORE BED FOR INSOMNIA [facility] hydrOXYzine 25 mg tablet 03-31 00:00: 00 05-31 04:59 :00 No [id number] 25mg Take 1 tablet by mouth every 6 (six) hours as needed for Itching (can take 2 before bed for insomnia) for up to 60 days. [facility] traMADoL 50 mg tablet 06-13 00:00: 00 Yes TAKE 1 TABLET BY MOUTH THREE TIMES A DAY NEEDED FOR PAIN [facility] cephALEXin 500 mg capsule 04-08 00:00: 00 Yes [facility] atorvastati n 40 mg tablet 04-02 00:00: 00 Yes [facility] ergocalcife rol, vitamin d2, 1,250 mcg (50,000 unit) capsule 04-02 00:00: 00 Yes [facility] zolpidem 10 mg tablet 22 00:00: 00 Yes [facility] Letrozole 2.5 MG Letrozole 2.5 MG No 1{table t} QD Letrozole 2.5 MG Vital Signs Vital Name Observation Time Observation Value Comments S madina Systolic blood pressure 2025-01-01 17:42:00 121 mm[Hg] [facility] Diastolic blood pressure 2025-01-01 17:42:00 60 mm[Hg] [facility] Heart rate 2025-01-01 17:42:00 60 /min [facility] Body temperature 2025-01-01 17:42:[address] [facility] Respiratory rate 2025-01-01 17:42:00 17 /min [facility] Oxygen saturation in Arterial blood by Pulse oximetry 2025-01-01 17:42:00 100 /min [facility] Body weight 2025-01-01 09:12:[address] [facility] BMI 2025-01-01 09:12:00 29.52 kg/m2 [facility] Body height 2024-12-31 19:56:[address] [facility] Systolic blood pressure 2024-12-08 18:05:00 129 mm[Hg] [facility] Diastolic blood pressure 2024-12-08 18:05:00 73 mm[Hg] [facility] Heart rate 2024-12-08 18:05:00 76 /min [facility] Respiratory rate 2024-12-08 18:05:00 19 /min [facility] Body height 2024-12-08 18:05:[address] [facility] Body weight 2024-12-08 18:05:[address] [facility] BMI 2024-12-08 18:05:00 27.72 kg/m2 [facility] Oxygen saturation in Arterial blood by Pulse oximetry 2024-12-08 18:05:00 96 /min [facility] Systolic blood pressure 2024-12-02 19:17:00 143 mm[Hg] [facility] Diastolic blood pressure 2024-12-02 19:17:00 87 mm[Hg] [facility] Heart rate 2024-12-02 19:17:00 74 /min [facility] Respiratory rate 2024-12-02 19:17:00 18 /min [facility] Body height 2024-12-02 19:17:[address] [facility] Body weight 2024-12-02 19:17:[address] [facility] BMI 2024-12-02 19:17:00 27.96 kg/m2 [facility] Oxygen saturation in Arterial blood by Pulse oximetry 2024-12-02 19:17:00 92 /min [facility] Systolic blood pressure 2024-11-16 19:56:00 141 mm[Hg] [facility] Diastolic blood pressure 2024-11-16 19:56:00 63 mm[Hg] [facility] Heart rate 2024-11-16 19:56:00 58 /min [facility] Oxygen saturation in Arterial blood by Pulse oximetry 2024-11-16 19:56:00 99 /min [facility] Respiratory rate 2024-11-16 19:19:00 19 /min [facility] Body height 2024-11-16 19:19:[address] [facility] Body weight 2024-11-16 19:19:[address] [facility] BMI 2024-11-16 19:19:00 27.25 kg/m2 [facility] height 2024-11-08 15:30:00 65 [in_i] [facility] weight 2024-11-08 15:30:00 177.0 [lb_av] [facility] temperature 2024-11-08 15:30:00 97.4 [degF] [facility] bmi 2024-11-08 15:30:00 29.45 kg/m2 [facility] oximetry 2024-11-08 15:30:00 97 % [facility] respiratory rate 2024-11-08 15:30:00 16 /min [facility] blood pressure systolic 2024-11-08 15:30:00 136 mm[Hg] [facility] blood pressure diastolic 2024-11-08 15:30:00 66 mm[Hg] [facility] Systolic blood pressure 2024-11-02 22:30:00 109 mm[Hg] [facility] Diastolic blood pressure 2024-11-02 22:30:00 62 mm[Hg] [facility] Heart rate 2024-11-02 22:30:00 47 /min [facility] Body temperature 2024-11-02 22:30:[address] [facility] Respiratory rate 2024-11-02 21:03:00 19 /min [facility] Body height 2024-11-02 21:03:[address] [facility] Body weight 2024-11-02 21:03:[address] [facility] BMI 2024-11-02 21:03:00 26.63 kg/m2 [facility] Oxygen saturation in Arterial blood by Pulse oximetry 2024-11-02 21:03:00 100 /min [facility] height 2024-10-25 14:45:00 65 [in_i] [facility] weight 2024-10-25 14:45:00 176.0 [lb_av] [facility] temperature 2024-10-25 14:45:00 97.9 [degF] [facility] bmi 2024-10-25 14:45:00 29.28 kg/m2 [facility] oximetry 2024-10-25 14:45:00 97 % [facility] respiratory rate 2024-10-25 14:45:00 16 /min [facility] blood pressure systolic 2024-10-25 14:45:00 124 mm[Hg] [facility] blood pressure diastolic 2024-10-25 14:45:00 58 mm[Hg] [facility] height 2024-10-25 14:45:00 65 [in_i] [facility] weight 2024-10-25 14:45:00 176.0 [lb_av] [facility] temperature 2024-10-25 14:45:00 97.9 [degF] [facility] bmi 2024-10-25 14:45:00 29.28 kg/m2 [facility] oximetry 2024-10-25 14:45:00 97 % [facility] respiratory rate 2024-10-25 14:45:00 16 /min [facility] blood pressure systolic 2024-10-25 14:45:00 124 mm[Hg] [facility] blood pressure diastolic 2024-10-25 14:45:00 58 mm[Hg] [facility] Systolic blood pressure 2024-10-04 15:49:00 164 mm[Hg] [facility] Diastolic blood pressure 2024-10-04 15:49:00 85 mm[Hg] [facility] Heart rate 2024-10-04 15:49:00 53 /min [facility] Body height 2024-10-04 15:47:[address] [facility] Body weight 2024-10-04 15:47:[address] [facility] BMI 2024-10-04 15:47:00 28.00 kg/m2 [facility] Systolic blood pressure 2024-09-26 18:40:00 139 mm[Hg] [facility] Diastolic blood pressure 2024-09-26 18:40:00 79 mm[Hg] [facility] Heart rate 2024-09-26 18:40:00 64 /min [facility] Body height 2024-09-26 18:40:[address] [facility] Body weight 2024-09-26 18:40:[address] [facility] BMI 2024-09-26 18:40:00 27.60 kg/m2 [facility] Oxygen saturation in Arterial blood by Pulse oximetry 2024-09-26 18:40:00 98 /min [facility] height 2024-06-13 08:20:00 65 [in_i] [facility] weight 2024-06-13 08:20:00 174 [lb_av] [facility] temperature 2024-06-13 08:20:00 97.3 [degF] [facility] bmi 2024-06-13 08:20:00 28.95 kg/m2 [facility] oximetry 2024-06-13 08:20:00 97 % [facility] respiratory rate 2024-06-13 08:20:00 20 /min [facility] blood pressure systolic 2024-06-13 08:20:00 140 mm[Hg] [facility] blood pressure diastolic 2024-06-13 08:20:00 90 mm[Hg] [facility] Systolic blood pressure 2024-05-23 20:39:00 112 mm[Hg] [facility] Diastolic blood pressure 2024-05-23 20:39:00 66 mm[Hg] [facility] Heart rate 2024-05-23 20:39:00 91 /min [facility] Body height 2024-05-23 20:39:[address] [facility] Body weight 2024-05-23 20:39:[address] [facility] BMI 2024-05-23 20:39:00 29.15 kg/m2 [facility] Oxygen saturation in Arterial blood by Pulse oximetry 2024-05-23 20:39:00 98 /min [facility] Systolic blood pressure 2024-05-04 20:51:00 137 mm[Hg] [facility] Diastolic blood pressure 2024-05-04 20:51:00 75 mm[Hg] [facility] Heart rate 2024-05-04 20:51:00 70 /min [facility] Body temperature 2024-05-04 20:51:[address] [facility] Respiratory rate 2024-05-04 20:51:00 18 /min [facility] Body height 2024-05-04 20:51:[address] [facility] Body weight 2024-05-04 20:51:[address] [facility] BMI 2024-05-04 20:51:00 28.79 kg/m2 [facility] Oxygen saturation in Arterial blood by Pulse oximetry 2024-05-04 20:51:00 96 /min [facility] Systolic blood pressure 2024-04-08 18:15:00 139 mm[Hg] [facility] Diastolic blood pressure 2024-04-08 18:15:00 83 mm[Hg] [facility] Heart rate 2024-04-08 18:15:00 67 /min [facility] Body temperature 2024-04-08 18:15:[address] [facility] Respiratory rate 2024-04-08 18:15:00 16 /min [facility] Body height 2024-04-08 18:15:[address] [facility] Body weight 2024-04-08 18:15:[address] [facility] BMI 2024-04-08 18:15:00 28.05 kg/m2 [facility] Oxygen saturation in Arterial blood by Pulse oximetry 2024-04-08 18:15:00 96 /min [facility] Systolic blood pressure 2024-02-19 18:30:00 123 mm[Hg] [facility] Diastolic blood pressure 2024-02-19 18:30:00 65 mm[Hg] [facility] Heart rate 2024-02-19 18:30:00 59 /min [facility] Body temperature 2024-02-19 18:30:[address] [facility] Respiratory rate 2024-02-19 18:30:00 20 /min [facility] Body height 2024-02-19 18:30:[address] [facility] Body weight 2024-02-19 18:30:[address] [facility] BMI 2024-02-19 18:30:00 29.44 kg/m2 [facility] Oxygen saturation in Arterial blood by Pulse oximetry 2024-02-19 18:30:00 97 /min [facility] Systolic blood pressure 2024-02-18 16:37:00 152 mm[Hg] [facility] Diastolic blood pressure 2024-02-18 16:37:00 73 mm[Hg] [facility] Heart rate 2024-02-18 16:30:00 66 /min [facility] Respiratory rate 2024-02-18 16:30:00 18 /min [facility] Body height 2024-02-18 16:30:[address] [facility] Body weight 2024-02-18 16:30:[address] [facility] BMI 2024-02-18 16:30:00 29.60 kg/m2 [facility] Oxygen saturation in Arterial blood by Pulse oximetry 2024-02-18 16:30:00 99 /min [facility] Systolic blood pressure 2024-02-11 18:02:00 143 mm[Hg] [facility] Diastolic blood pressure 2024-02-11 18:02:00 80 mm[Hg] [facility] Heart rate 2024-02-11 18:01:00 83 /min [facility] Body height 2024-02-11 18:01:[address] [facility] Body weight 2024-02-11 18:01:[address] [facility] BMI 2024-02-11 18:01:00 29.12 kg/m2 [facility] Oxygen saturation in Arterial blood by Pulse oximetry 2024-02-11 18:01:00 98 /min [facility] Systolic blood pressure 2024-01-21 16:58:00 126 mm[Hg] [facility] Diastolic blood pressure 2024-01-21 16:58:00 64 mm[Hg] [facility] Heart rate 2024-01-21 16:58:00 76 /min [facility] Body temperature 2024-01-21 16:58:[address] [facility] Respiratory rate 2024-01-21 16:58:00 17 /min [facility] Body height 2024-01-21 16:58:[address] [facility] Body weight 2024-01-21 16:58:[address] [facility] BMI 2024-01-21 16:58:00 30.49 kg/m2 [facility] Oxygen saturation in Arterial blood by Pulse oximetry 2024-01-21 16:58:00 94 /min [facility] Systolic blood pressure 2023-11-11 19:20:00 157 mm[Hg] [facility] Diastolic blood pressure 2023-11-11 19:20:00 64 mm[Hg] [facility] Heart rate 2023-11-11 19:20:00 59 /min [facility] Respiratory rate 2023-11-11 19:20:00 12 /min [facility] Oxygen saturation in Arterial blood by Pulse oximetry 2023-11-11 19:05:00 99 /min [facility] Systolic blood pressure 2023-11-09 15:03:00 147 mm[Hg] [facility] Diastolic blood pressure 2023-11-09 15:03:00 77 mm[Hg] [facility] Heart rate 2023-11-09 15:03:00 76 /min [facility] Body height 2023-11-09 15:03:[address] [facility] Body weight 2023-11-09 15:03:[address] [facility] BMI 2023-11-09 15:03:00 32.05 kg/m2 [facility] Oxygen saturation in Arterial blood by Pulse oximetry 2023-11-09 15:03:00 96 /min [facility] Systolic blood pressure 2023-10-15 17:18:00 156 mm[Hg] [facility] Diastolic blood pressure 2023-10-15 17:18:00 73 mm[Hg] [facility] Heart rate 2023-10-15 17:18:00 67 /min [facility] Body temperature 2023-10-15 17:17:[address] [facility] Respiratory rate 2023-10-15 17:17:00 18 /min [facility] Body weight 2023-10-15 17:17:[address] [facility] BMI 2023-10-15 17:17:00 30.59 kg/m2 [facility] Systolic blood pressure 2023-10-14 20:01:00 131 mm[Hg] [facility] Diastolic blood pressure 2023-10-14 20:01:00 82 mm[Hg] [facility] Heart rate 2023-10-14 20:01:00 73 /min [facility] Respiratory rate 2023-10-14 20:01:00 15 /min [facility] Body height 2023-10-14 20:01:[address] [facility] Body weight 2023-10-14 20:01:[address] [facility] BMI 2023-10-14 20:01:00 30.38 kg/m2 [facility] Oxygen saturation in Arterial blood by Pulse oximetry 2023-10-14 20:01:00 96 /min [facility] Systolic blood pressure 2023-10-09 19:23:00 144 mm[Hg] [facility] Diastolic blood pressure 2023-10-09 19:23:00 80 mm[Hg] [facility] Heart rate 2023-10-09 19:23:00 70 /min [facility] Body temperature 2023-10-09 19:23:[address] [facility] Respiratory rate 2023-10-09 19:23:00 16 /min [facility] Body height 2023-10-09 19:23:[address] [facility] Body weight 2023-10-09 19:23:[address] [facility] BMI 2023-10-09 19:23:00 30.28 kg/m2 [facility] Oxygen saturation in Arterial blood by Pulse oximetry 2023-10-09 19:23:00 96 /min [facility] Systolic blood pressure 2023-09-24 15:48:00 144 mm[Hg] [facility] Diastolic blood pressure 2023-09-24 15:48:00 75 mm[Hg] [facility] Heart rate 2023-09-24 15:48:00 71 /min [facility] Oxygen saturation in Arterial blood by Pulse oximetry 2023-09-24 15:48:00 95 /min [facility] Systolic blood pressure 2023-09-24 15:48:00 144 mm[Hg] [facility] Diastolic blood pressure 2023-09-24 15:48:00 75 mm[Hg] [facility] Heart rate 2023-09-24 15:48:00 71 /min [facility] Oxygen saturation in Arterial blood by Pulse oximetry 2023-09-24 15:48:00 95 /min [facility] Body temperature 2023-09-24 15:47:[address] [facility] Respiratory rate 2023-09-24 15:47:00 18 /min [facility] Body weight 2023-09-24 15:47:[address] [facility] BMI 2023-09-24 15:47:00 30.01 kg/m2 [facility] Body temperature 2023-09-24 15:47:[address] [facility] Respiratory rate 2023-09-24 15:47:00 18 /min [facility] Body weight 2023-09-24 15:47:[address] [facility] BMI 2023-09-24 15:47:00 30.01 kg/m2 [facility] Systolic blood pressure 2023-09-03 15:55:00 146 mm[Hg] [facility] Diastolic blood pressure 2023-09-03 15:55:00 70 mm[Hg] [facility] Heart rate 2023-09-03 15:55:00 70 /min [facility] Body temperature 2023-09-03 15:55:[address] [facility] Respiratory rate 2023-09-03 15:55:00 17 /min [facility] Body weight 2023-09-03 15:55:[address] [facility] BMI 2023-09-03 15:55:00 29.84 kg/m2 [facility] Oxygen saturation in Arterial blood by Pulse oximetry 2023-09-03 15:55:00 99 /min [facility] Systolic blood pressure 2023-09-03 14:55:00 146 mm[Hg] [facility] Diastolic blood pressure 2023-09-03 14:55:00 70 mm[Hg] [facility] Heart rate 2023-09-03 14:55:00 72 /min [facility] Body temperature 2023-09-03 14:55:[address] [facility] Respiratory rate 2023-09-03 14:55:00 16 /min [facility] Body weight 2023-09-03 14:55:[address] [facility] BMI 2023-09-03 14:55:00 29.84 kg/m2 [facility] Oxygen saturation in Arterial blood by Pulse oximetry 2023-09-03 14:55:00 99 /min [facility] Systolic blood pressure 2023-08-13 16:22:00 138 mm[Hg] [facility] Diastolic blood pressure 2023-08-13 16:22:00 82 mm[Hg] [facility] Heart rate 2023-08-13 16:22:00 73 /min [facility] Body temperature 2023-08-13 16:22:[address] [facility] Respiratory rate 2023-08-13 16:22:00 18 /min [facility] Body weight 2023-08-13 16:22:[address] [facility] BMI 2023-08-13 16:22:00 29.18 kg/m2 [facility] Oxygen saturation in Arterial blood by Pulse oximetry 2023-08-13 16:22:00 98 /min [facility] Systolic blood pressure 2023-08-07 14:11:00 139 mm[Hg] [facility] Diastolic blood pressure 2023-08-07 14:11:00 66 mm[Hg] [facility] Heart rate 2023-08-07 14:11:00 70 /min [facility] Respiratory rate 2023-08-07 14:11:00 18 /min [facility] Body weight 2023-08-07 14:11:[address] [facility] BMI 2023-08-07 14:11:00 28.98 kg/m2 [facility] Oxygen saturation in Arterial blood by Pulse oximetry 2023-08-07 14:11:00 98 /min [facility] Systolic blood pressure 2023-07-23 16:18:00 134 mm[Hg] [facility] Diastolic blood pressure 2023-07-23 16:18:00 69 mm[Hg] [facility] Heart rate 2023-07-23 16:18:00 71 /min [facility] Body temperature 2023-07-23 16:17:[address] [facility] Respiratory rate 2023-07-23 16:17:00 19 /min [facility] Body weight 2023-07-23 16:17:[address] [facility] BMI 2023-07-23 16:17:00 28.49 kg/m2 [facility] Oxygen saturation in Arterial blood by Pulse oximetry 2023-07-23 16:17:00 98 /min [facility] Systolic blood pressure 2023-07-06 14:43:00 153 mm[Hg] [facility] Diastolic blood pressure 2023-07-06 14:43:00 82 mm[Hg] [facility] Heart rate 2023-07-06 14:35:00 80 /min [facility] Respiratory rate 2023-07-06 14:35:00 18 /min [facility] Body height 2023-07-06 14:35:[address] [facility] Body weight 2023-07-06 14:35:[address] [facility] BMI 2023-07-06 14:35:00 27.49 kg/m2 [facility] Systolic blood pressure 2023-07-02 16:08:00 133 mm[Hg] [facility] Diastolic blood pressure 2023-07-02 16:08:00 64 mm[Hg] [facility] Heart rate 2023-07-02 16:08:00 69 /min [facility] Body temperature 2023-07-02 16:07:[address] [facility] Respiratory rate 2023-07-02 16:07:00 18 /min [facility] Body weight 2023-07-02 16:07:[address] [facility] BMI 2023-07-02 16:07:00 28.35 kg/m2 [facility] Oxygen saturation in Arterial blood by Pulse oximetry 2023-07-02 16:07:00 98 /min [facility] Systolic blood pressure 2023-06-01 13:58:00 127 mm[Hg] [facility] Diastolic blood pressure 2023-06-01 13:58:00 77 mm[Hg] [facility] Heart rate 2023-06-01 13:58:00 77 /min [facility] Body height 2023-06-01 13:58:[address] [facility] Body weight 2023-06-01 13:58:[address] [facility] BMI 2023-06-01 13:58:00 26.95 kg/m2 [facility] Oxygen saturation in Arterial blood by Pulse oximetry 2023-06-01 13:58:00 95 /min [facility] Systolic blood pressure 2023-05-21 16:34:00 135 mm[Hg] [facility] Diastolic blood pressure 2023-05-21 16:34:00 71 mm[Hg] [facility] Heart rate 2023-05-21 16:34:00 78 /min [facility] Body temperature 2023-05-21 16:34:[address] [facility] Respiratory rate 2023-05-21 16:34:00 20 /min [facility] Body weight 2023-05-21 16:34:[address] [facility] BMI 2023-05-21 16:34:00 26.72 kg/m2 [facility] Oxygen saturation in Arterial blood by Pulse oximetry 2023-05-21 16:34:00 96 /min [facility] Systolic blood pressure 2023-04-30 17:27:00 141 mm[Hg] [facility] Diastolic blood pressure 2023-04-30 17:27:00 80 mm[Hg] [facility] Heart rate 2023-04-30 17:27:00 69 /min [facility] Body temperature 2023-04-30 17:27:[address] [facility] Respiratory rate 2023-04-30 17:27:00 18 /min [facility] Body weight 2023-04-30 17:27:[address] [facility] BMI 2023-04-30 17:27:00 26.03 kg/m2 [facility] Oxygen saturation in Arterial blood by Pulse oximetry 2023-04-30 17:27:00 98 /min [facility] Systolic blood pressure 2023-04-30 16:19:00 150 mm[Hg] [facility] Diastolic blood pressure 2023-04-30 16:19:00 74 mm[Hg] [facility] Heart rate 2023-04-30 16:10:00 69 /min [facility] Body temperature 2023-04-30 16:10:[address] [facility] Respiratory rate 2023-04-30 16:10:00 17 /min [facility] Body height 2023-04-30 16:10:[address] [facility] Body weight 2023-04-30 16:10:[address] [facility] BMI 2023-04-30 16:10:00 26.05 kg/m2 [facility] Oxygen saturation in Arterial blood by Pulse oximetry 2023-04-30 16:10:00 98 /min [facility] Systolic blood pressure 2023-04-09 16:10:00 137 mm[Hg] [facility] Diastolic blood pressure 2023-04-09 16:10:00 74 mm[Hg] [facility] Heart rate 2023-04-09 16:10:00 75 /min [facility] Body temperature 2023-04-09 16:10:[address] [facility] Respiratory rate 2023-04-09 16:10:00 20 /min [facility] Body weight 2023-04-09 16:10:[address] [facility] BMI 2023-04-09 16:10:00 26.66 kg/m2 [facility] Oxygen saturation in Arterial blood by Pulse oximetry 2023-04-09 16:10:00 98 /min [facility] Systolic blood pressure 2023-03-19 15:23:00 131 mm[Hg] [facility] Diastolic blood pressure 2023-03-19 15:23:00 85 mm[Hg] [facility] Heart rate 2023-03-19 15:23:00 85 /min [facility] Body temperature 2023-03-19 15:23:[address] [facility] Respiratory rate 2023-03-19 15:23:00 16 /min [facility] Body weight 2023-03-19 15:23:[address] [facility] BMI 2023-03-19 15:23:00 26.17 kg/m2 [facility] Oxygen saturation in Arterial blood by Pulse oximetry 2023-03-19 15:23:00 98 /min [facility] Systolic blood pressure 2023-03-19 14:33:00 131 mm[Hg] [facility] Diastolic blood pressure 2023-03-19 14:33:00 85 mm[Hg] [facility] Heart rate 2023-03-19 14:33:00 85 /min [facility] Body temperature 2023-03-19 14:33:[address] [facility] Respiratory rate 2023-03-19 14:33:00 16 /min [facility] Body weight 2023-03-19 14:33:[address] [facility] BMI 2023-03-19 14:33:00 26.16 kg/m2 [facility] Oxygen saturation in Arterial blood by Pulse oximetry 2023-03-19 14:33:00 98 /min [facility] Systolic blood pressure 2023-02-26 16:15:00 132 mm[Hg] [facility] Diastolic blood pressure 2023-02-26 16:15:00 80 mm[Hg] [facility] Heart rate 2023-02-26 16:15:00 92 /min [facility] Body temperature 2023-02-26 16:15:[address] [facility] Respiratory rate 2023-02-26 16:15:00 20 /min [facility] Body weight 2023-02-26 16:15:[address] [facility] BMI 2023-02-26 16:15:00 26.83 kg/m2 [facility] Oxygen saturation in Arterial blood by Pulse oximetry 2023-02-26 16:15:00 95 /min [facility] Systolic blood pressure 2023-02-26 15:09:00 132 mm[Hg] [facility] Diastolic blood pressure 2023-02-26 15:09:00 80 mm[Hg] [facility] Heart rate 2023-02-26 15:09:00 92 /min [facility] Body temperature 2023-02-26 15:09:[address] [facility] Respiratory rate 2023-02-26 15:09:00 17 /min [facility] Body height 2023-02-26 15:09:[address] [facility] Body weight 2023-02-26 15:09:[address] [facility] BMI 2023-02-26 15:09:00 26.83 kg/m2 [facility] Oxygen saturation in Arterial blood by Pulse oximetry 2023-02-26 15:09:00 95 /min [facility] Systolic blood pressure 2023-02-05 19:34:00 172 mm[Hg] [facility] Diastolic blood pressure 2023-02-05 19:34:00 150 mm[Hg] [facility] Heart rate 2023-02-05 19:34:00 85 /min [facility] Body temperature 2023-02-05 19:34:[address] [facility] Respiratory rate 2023-02-05 19:34:00 20 /min [facility] Body height 2023-02-05 19:34:[address] [facility] Body weight 2023-02-05 19:34:[address] [facility] BMI 2023-02-05 19:34:00 26.16 kg/m2 [facility] Oxygen saturation in Arterial blood by Pulse oximetry 2023-02-05 19:34:00 98 /min [facility] Systolic blood pressure 2023-02-05 17:22:00 148 mm[Hg] [facility] Diastolic blood pressure 2023-02-05 17:22:00 111 mm[Hg] [facility] Heart rate 2023-02-05 17:22:00 69 /min [facility] Body temperature 2023-02-05 17:22:[address] [facility] Respiratory rate 2023-02-05 17:22:00 16 /min [facility] Oxygen saturation in Arterial blood by Pulse oximetry 2023-02-05 17:22:00 97 /min [facility] Systolic blood pressure 2023-02-05 16:12:00 178 mm[Hg] Manual Reading [facility] Diastolic blood pressure 2023-02-05 16:12:00 98 mm[Hg] Manual Reading [facility] Heart rate 2023-02-05 15:57:00 79 /min [facility] Body temperature 2023-02-05 15:56:[address] [facility] Respiratory rate 2023-02-05 15:56:00 16 /min [facility] Body height 2023-02-05 15:56:[address] [facility] Body weight 2023-02-05 15:56:[address] [facility] BMI 2023-02-05 15:56:00 26.19 kg/m2 [facility] Oxygen saturation in Arterial blood by Pulse oximetry 2023-02-05 15:56:00 98 /min [facility] Systolic blood pressure 2023-01-25 00:00:00 158 mm[Hg] [facility] Diastolic blood pressure 2023-01-25 00:00:00 83 mm[Hg] [facility] Heart rate 2023-01-25 00:00:00 63 /min [facility] Respiratory rate 2023-01-25 00:00:00 13 /min [facility] Oxygen saturation in Arterial blood by Pulse oximetry 2023-01-25 00:00:00 92 /min [facility] Body temperature 2023-01-24 21:56:[address] [facility] Body height 2023-01-24 21:56:[address] [facility] Body weight 2023-01-24 21:56:[address] [facility] BMI 2023-01-24 21:56:00 27.44 kg/m2 [facility] Systolic blood pressure 2023-01-14 14:41:00 134 mm[Hg] [facility] Diastolic blood pressure 2023-01-14 14:41:00 70 mm[Hg] [facility] Heart rate 2023-01-14 14:34:00 78 /min [facility] Body temperature 2023-01-14 14:34:[address] [facility] Respiratory rate 2023-01-14 14:34:00 18 /min [facility] Body height 2023-01-14 14:34:[address] [facility] Body weight 2023-01-14 14:34:[address] [facility] BMI 2023-01-14 14:34:00 27.46 kg/m2 [facility] Oxygen saturation in Arterial blood by Pulse oximetry 2023-01-14 14:34:00 97 /min [facility] Systolic blood pressure 2023-01-07 14:46:00 139 mm[Hg] [facility] Diastolic blood pressure 2023-01-07 14:46:00 78 mm[Hg] [facility] Heart rate 2023-01-07 14:44:00 80 /min [facility] Body temperature 2023-01-07 14:44:[address] [facility] Respiratory rate 2023-01-07 14:44:00 16 /min [facility] Body weight 2023-01-07 14:44:[address] [facility] BMI 2023-01-07 14:44:00 27.59 kg/m2 [facility] Oxygen saturation in Arterial blood by Pulse oximetry 2023-01-07 14:44:00 98 /min [facility] Systolic blood pressure 2022-12-31 18:39:00 156 mm[Hg] [facility] Diastolic blood pressure 2022-12-31 18:39:00 86 mm[Hg] [facility] Heart rate 2022-12-31 18:39:00 85 /min [facility] Body temperature 2022-12-31 18:39:[address] [facility] Respiratory rate 2022-12-31 18:39:00 20 /min [facility] Body weight 2022-12-31 18:39:[address] [facility] BMI 2022-12-31 18:39:00 27.73 kg/m2 [facility] Oxygen saturation in Arterial blood by Pulse oximetry 2022-12-31 18:39:00 98 /min [facility] Systolic blood pressure 2022-12-24 16:18:00 136 mm[Hg] [facility] Diastolic blood pressure 2022-12-24 16:18:00 73 mm[Hg] [facility] Heart rate 2022-12-24 16:18:00 77 /min [facility] Body temperature 2022-12-24 16:18:[address] [facility] Respiratory rate 2022-12-24 16:18:00 18 /min [facility] Body weight 2022-12-24 16:18:[address] [facility] BMI 2022-12-24 16:18:00 27.73 kg/m2 [facility] Oxygen saturation in Arterial blood by Pulse oximetry 2022-12-24 16:18:00 99 /min [facility] Systolic blood pressure 2022-12-24 14:44:00 136 mm[Hg] [facility] Diastolic blood pressure 2022-12-24 14:44:00 73 mm[Hg] [facility] Heart rate 2022-12-24 14:44:00 77 /min [facility] Body temperature 2022-12-24 14:44:[address] [facility] Respiratory rate 2022-12-24 14:44:00 16 /min [facility] Body height 2022-12-24 14:44:[address] [facility] Body weight 2022-12-24 14:44:[address] [facility] BMI 2022-12-24 14:44:00 27.72 kg/m2 [facility] Oxygen saturation in Arterial blood by Pulse oximetry 2022-12-24 14:44:00 99 /min [facility] Systolic blood pressure 2022-12-17 15:49:00 158 mm[Hg] [facility] Diastolic blood pressure 2022-12-17 15:49:00 88 mm[Hg] [facility] Heart rate 2022-12-17 15:48:00 71 /min [facility] Body temperature 2022-12-17 15:48:[address] [facility] Respiratory rate 2022-12-17 15:48:00 18 /min [facility] Body weight 2022-12-17 15:48:[address] [facility] BMI 2022-12-17 15:48:00 27.35 kg/m2 [facility] Oxygen saturation in Arterial blood by Pulse oximetry 2022-12-17 15:48:00 98 /min [facility] Systolic blood pressure 2022-12-10 15:39:00 143 mm[Hg] [facility] Diastolic blood pressure 2022-12-10 15:39:00 71 mm[Hg] [facility] Heart rate 2022-12-10 15:24:00 80 /min [facility] Body temperature 2022-12-10 15:24:[address] [facility] Respiratory rate 2022-12-10 15:24:00 18 /min [facility] Body weight 2022-12-10 15:24:[address] [facility] BMI 2022-12-10 15:24:00 27.83 kg/m2 [facility] Oxygen saturation in Arterial blood by Pulse oximetry 2022-12-10 15:24:00 99 /min [facility] Systolic blood pressure 2022-12-04 16:13:00 162 mm[Hg] [facility] Diastolic blood pressure 2022-12-04 16:13:00 73 mm[Hg] [facility] Heart rate 2022-12-04 16:12:00 67 /min [facility] Body temperature 2022-12-04 16:12:[address] [facility] Respiratory rate 2022-12-04 16:12:00 18 /min [facility] Body weight 2022-12-04 16:12:[address] [facility] BMI 2022-12-04 16:12:00 28.75 kg/m2 [facility] Oxygen saturation in Arterial blood by Pulse oximetry 2022-12-04 16:12:00 97 /min [facility] Systolic blood pressure 2022-12-04 14:59:00 145 mm[Hg] [facility] Diastolic blood pressure 2022-12-04 14:59:00 69 mm[Hg] [facility] Heart rate 2022-12-04 14:52:00 72 /min [facility] Body temperature 2022-12-04 14:52:[address] [facility] Respiratory rate 2022-12-04 14:52:00 17 /min [facility] Body height 2022-12-04 14:52:[address] [facility] Body weight 2022-12-04 14:52:[address] [facility] BMI 2022-12-04 14:52:00 28.76 kg/m2 [facility] Oxygen saturation in Arterial blood by Pulse oximetry 2022-12-04 14:52:00 98 /min [facility] Systolic blood pressure 2022-11-27 17:50:00 167 mm[Hg] [facility] Diastolic blood pressure 2022-11-27 17:50:00 89 mm[Hg] [facility] Heart rate 2022-11-27 17:50:00 78 /min [facility] Respiratory rate 2022-11-27 17:50:00 16 /min [facility] Oxygen saturation in Arterial blood by Pulse oximetry 2022-11-27 17:50:00 96 /min [facility] Body temperature 2022-11-27 17:20:[address] [facility] Body height 2022-11-27 14:43:[address] [facility] Body weight 2022-11-27 14:43:[address] [facility] BMI 2022-11-27 14:43:00 28.13 kg/m2 [facility] Systolic blood pressure 2022-11-27 14:43:00 162 mm[Hg] [facility] Diastolic blood pressure 2022-11-27 14:43:00 98 mm[Hg] [facility] Heart rate 2022-11-27 14:43:00 79 /min [facility] Body temperature 2022-11-27 14:43:[address] [facility] Respiratory rate 2022-11-27 14:43:00 16 /min [facility] Body height 2022-11-27 14:43:[address] [facility] Body weight 2022-11-27 14:43:[address] [facility] BMI 2022-11-27 14:43:00 28.13 kg/m2 [facility] Oxygen saturation in Arterial blood by Pulse oximetry 2022-11-27 14:43:00 98 /min [facility] Systolic blood pressure 2022-11-13 14:55:00 122 mm[Hg] [facility] Diastolic blood pressure 2022-11-13 14:55:00 73 mm[Hg] [facility] Heart rate 2022-11-13 14:48:00 78 /min [facility] Body temperature 2022-11-13 14:48:[address] [facility] Respiratory rate 2022-11-13 14:48:00 18 /min [facility] Body height 2022-11-13 14:48:[address] [facility] Body weight 2022-11-13 14:48:[address] [facility] BMI 2022-11-13 14:48:00 28.93 kg/m2 [facility] Oxygen saturation in Arterial blood by Pulse oximetry 2022-11-13 14:48:00 100 /min [facility] Systolic blood pressure 2022-11-12 14:44:00 131 mm[Hg] [facility] Diastolic blood pressure 2022-11-12 14:44:00 83 mm[Hg] [facility] Heart rate 2022-11-12 14:44:00 69 /min [facility] Respiratory rate 2022-11-12 14:44:00 18 /min [facility] Body height 2022-11-12 14:44:[address] [facility] Body weight 2022-11-12 14:44:[address] [facility] BMI 2022-11-12 14:44:00 29.12 kg/m2 [facility] Systolic blood pressure 2022-10-29 19:15:00 142 mm[Hg] [facility] Diastolic blood pressure 2022-10-29 19:15:00 76 mm[Hg] [facility] Heart rate 2022-10-29 19:15:00 56 /min [facility] Respiratory rate 2022-10-29 19:15:00 18 /min [facility] Oxygen saturation in Arterial blood by Pulse oximetry 2022-10-29 19:15:00 98 /min [facility] Body temperature 2022-10-29 17:56:[address] [facility] Body height 2022-10-29 17:56:[address] [facility] Body weight 2022-10-29 17:56:[address] [facility] BMI 2022-10-29 17:56:00 28.98 kg/m2 [facility] Systolic blood pressure 2022-10-22 16:42:00 135 mm[Hg] [facility] Diastolic blood pressure 2022-10-22 16:42:00 65 mm[Hg] [facility] Heart rate 2022-10-22 16:42:00 64 /min [facility] Body temperature 2022-10-22 16:42:[address] [facility] Respiratory rate 2022-10-22 16:42:00 16 /min [facility] Body height 2022-10-22 16:42:[address] [facility] Body weight 2022-10-22 16:42:[address] [facility] BMI 2022-10-22 16:42:00 28.21 kg/m2 [facility] Oxygen saturation in Arterial blood by Pulse oximetry 2022-10-22 16:42:00 99 /min [facility] Systolic blood pressure 2022-10-19 18:40:00 127 mm[Hg] [facility] Diastolic blood pressure 2022-10-19 18:40:00 72 mm[Hg] [facility] Heart rate 2022-10-19 18:40:00 70 /min [facility] Respiratory rate 2022-10-19 18:40:00 18 /min [facility] Oxygen saturation in Arterial blood by Pulse oximetry 2022-10-19 18:40:00 100 /min [facility] Body temperature 2022-10-19 16:08:[address] [facility] Body weight 2022-10-19 16:08:[address] [facility] BMI 2022-10-19 16:08:00 28.55 kg/m2 [facility] Systolic blood pressure 2022-10-14 15:40:00 137 mm[Hg] [facility] Diastolic blood pressure 2022-10-14 15:40:00 89 mm[Hg] [facility] Heart rate 2022-10-14 15:40:00 57 /min [facility] Body temperature 2022-10-14 15:40:[address] [facility] Respiratory rate 2022-10-14 15:40:00 18 /min [facility] Body weight 2022-10-14 15:40:[address] [facility] BMI 2022-10-14 15:40:00 28.54 kg/m2 [facility] Oxygen saturation in Arterial blood by Pulse oximetry 2022-10-14 15:40:00 98 /min [facility] Systolic blood pressure 2022-10-13 18:25:00 153 mm[Hg] [facility] Diastolic blood pressure 2022-10-13 18:25:00 76 mm[Hg] [facility] Heart rate 2022-10-13 18:25:00 72 /min [facility] Respiratory rate 2022-10-13 18:25:00 18 /min [facility] Body height 2022-10-13 18:25:[address] [facility] Body weight 2022-10-13 18:25:[address] [facility] BMI 2022-10-13 18:25:00 28.55 kg/m2 [facility] Oxygen saturation in Arterial blood by Pulse oximetry 2022-10-13 18:25:00 94 /min [facility] Systolic blood pressure 2022-10-07 15:21:00 133 mm[Hg] [facility] Diastolic blood pressure 2022-10-07 15:21:00 75 mm[Hg] [facility] Heart rate 2022-10-07 15:21:00 69 /min [facility] Body temperature 2022-10-07 15:21:[address] [facility] Respiratory rate 2022-10-07 15:21:00 18 /min [facility] Body height 2022-10-07 15:21:00 167.9 cm verified w/ Ronda Mulligan MA [facility] Body weight 2022-10-07 15:21:00 81.9 kg verified w/ Ronda Mulligan MA [facility] BMI 2022-10-07 15:21:00 29.05 kg/m2 [facility] Oxygen saturation in Arterial blood by Pulse oximetry 2022-10-07 15:21:00 97 /min [facility] Systolic blood pressure 2022-10-02 13:56:00 158 mm[Hg] [facility] Diastolic blood pressure 2022-10-02 13:56:00 86 mm[Hg] [facility] Heart rate 2022-10-02 13:55:00 77 /min [facility] Body temperature 2022-10-02 13:55:[address] [facility] Respiratory rate 2022-10-02 13:55:00 17 /min [facility] Body weight 2022-10-02 13:55:[address] [facility] BMI 2022-10-02 13:55:00 28.66 kg/m2 [facility] Oxygen saturation in Arterial blood by Pulse oximetry 2022-10-02 13:55:00 100 /min [facility] Systolic blood pressure 2022-09-09 21:12:00 139 mm[Hg] [facility] Diastolic blood pressure 2022-09-09 21:12:00 77 mm[Hg] [facility] Heart rate 2022-09-09 21:12:00 67 /min [facility] Body temperature 2022-09-09 21:12:[address] [facility] Respiratory rate 2022-09-09 21:12:00 18 /min [facility] Body height 2022-09-09 21:12:[address] [facility] Body weight 2022-09-09 21:12:[address] [facility] BMI 2022-09-09 21:12:00 28.88 kg/m2 [facility] Oxygen saturation in Arterial blood by Pulse oximetry 2022-09-09 21:12:00 97 /min [facility] Systolic blood pressure 2022-09-03 19:19:00 112 mm[Hg] [facility] Diastolic blood pressure 2022-09-03 19:19:00 66 mm[Hg] [facility] Heart rate 2022-09-03 19:19:00 63 /min [facility] Body temperature 2022-09-03 19:19:[address] [facility] Respiratory rate 2022-09-03 19:19:00 16 /min [facility] Body height 2022-09-03 19:19:[address] [facility] Body weight 2022-09-03 19:19:[address] [facility] BMI 2022-09-03 19:19:00 29.49 kg/m2 [facility] Oxygen saturation in Arterial blood by Pulse oximetry 2022-09-03 19:19:00 97 /min [facility] Systolic blood pressure 2022-09-02 20:58:00 119 mm[Hg] [facility] Diastolic blood pressure 2022-09-02 20:58:00 74 mm[Hg] [facility] Heart rate 2022-09-02 20:58:00 80 /min [facility] Body temperature 2022-09-02 20:58:[address] [facility] Respiratory rate 2022-09-02 20:58:00 18 /min [facility] Body height 2022-09-02 20:58:[address] [facility] Body weight 2022-09-02 20:58:[address] [facility] BMI 2022-09-02 20:58:00 29.41 kg/m2 [facility] Oxygen saturation in Arterial blood by Pulse oximetry 2022-09-02 20:58:00 96 /min [facility] Systolic blood pressure 2022-08-22 15:55:00 114 mm[Hg] [facility] Diastolic blood pressure 2022-08-22 15:55:00 70 mm[Hg] [facility] Heart rate 2022-08-22 15:55:00 74 /min [facility] Body height 2022-08-22 15:55:[address] [facility] Body weight 2022-08-22 15:55:[address] [facility] BMI 2022-08-22 15:55:00 28.66 kg/m2 [facility] Oxygen saturation in Arterial blood by Pulse oximetry 2022-08-22 15:55:00 96 /min [facility] Systolic blood pressure 2022-08-19 21:23:00 107 mm[Hg] [facility] Diastolic blood pressure 2022-08-19 21:23:00 68 mm[Hg] [facility] Heart rate 2022-08-19 21:23:00 72 /min [facility] Body temperature 2022-08-19 21:23:[address] [facility] Respiratory rate 2022-08-19 21:23:00 18 /min [facility] Body height 2022-08-19 21:23:[address] [facility] Body weight 2022-08-19 21:23:[address] [facility] BMI 2022-08-19 21:23:00 29.29 kg/m2 [facility] Oxygen saturation in Arterial blood by Pulse oximetry 2022-08-19 21:23:00 94 /min [facility] Systolic blood pressure 2024-04-08 18:15:00 139 mm[Hg] [facility] Diastolic blood pressure 2024-04-08 18:15:00 83 mm[Hg] [facility] Heart rate 2024-04-08 18:15:00 67 /min [facility] Body temperature 2024-04-08 18:15:[address] [facility] Respiratory rate 2024-04-08 18:15:00 16 /min [facility] Body height 2024-04-08 18:15:[address] [facility] Body weight 2024-04-08 18:15:[address] [facility] BMI 2024-04-08 18:15:00 28.05 kg/m2 [facility] Oxygen saturation in Arterial blood by Pulse oximetry 2024-04-08 18:15:00 96 /min [facility] Procedures Procedure Date / Time Performed Performing Clinician Source TRANSTHORACIC ECHO (TTE) COMPLETE 01-01 15:20:[address] [facility] TROPONIN I 2025-01-01 14:53:[address] [facility] URINE DRUG (IMMUNOASSAY) - COMPREHENSIVE DRUG SCREEN 2024-12-31 21:14:[address] [facility] URINALYSIS 2024-12-31 21:14:[address] [facility] FENTANYL (IMMUNOASSAY) 2024-12-31 21:14:[address] [facility] TROPONIN I 2024-12-31 20:09:[address] [facility] COMP. METABOLIC PANEL (49258) 2024-12-31 20:09:[address] [facility] CBC WITH DIFF 2024-12-31 20:09:[address] [facility] N-TERMINAL PRO-BNP 2024-12-31 20:09:[address] [facility] HB ECG ROUTINE & RHYTHM STRIP 2024-12-31 19:53:[address] [facility] EKG-12 LEAD 2024-11-02 22:44:[address] [facility] CT TRAUMA HEAD WO CONTRAST 2024-11-02 22:16:[address] [facility] CT TRAUMA CERVICAL SPINE WO CONTRAST 2024-11-02 22:16:[address] [facility] MAGNESIUM 2024-11-02 21:13:[address] [facility] TROPONIN I 2024-11-02 21:13:[address] [facility] COMP. METABOLIC PANEL ([id number]) 2024-11-02 21:13:[address] [facility] CBC WITH DIFF 2024-11-02 21:13:[address] [facility] DEXA AXIAL (HIP AND SPINE) 2024-08-18 16:56:[address] [facility] BI DEREK GUIDED CORE BREAST B IOPSY LEFT 2024-07-14 19:23:[address] [facility] XR WRIST <3 VW LEFT 2024-07-06 18:31:[address] [facility] TRANSTHORACIC ECHO (TTE) COMPLETE 04-26 13:48:[address] [facility] TRANSTHORACIC ECHO (TTE) COMPLETE 04-26 13:48:[address] [facility] MOBILE CARDIAC TELEMETRY 2024-02-25 20:57:[address] [facility] HB ECG ROUTINE & RHYTHM STRIP 2024-02-19 18:36:[address] [facility] AUTHORIZATION TO RELEASE PHI TO [facility] 2024-02-18 05:01:00 Doctor Unassigned, [facility] MEDICAL RELEASE/CLEARANCE FORMS 05:01:00 Doctor Unassigned, [facility] MEDICAL RELEASE/CLEARANCE FORMS 05:01:00 Doctor Unassigned, [facility] EXTERNAL PROVIDER RECORDS 2024-01-06 06:01:00 Doctor Unassigned, [facility] IR REMOVAL TUNNELED CENTRAL VENOUS CATHETER WITH PORT/PUMP 2023-11-11 19:21:[address] [facility] BASIC METABOLIC PANEL (NA, K , CL, CO2, GLUCOSE, BUN, CREATININE, CA) 2023-10-13 19:46:[address] [facility] ASSIGNMENT OF BENEFITS 2023-10-13 18:58:37 Doctor Unassigned, [facility] MR LUMBAR SPINE W WO CONTRAST 2023-09-15 14:28:[address] [facility] TRANSTHORACIC ECHO (TTE) COMPLETE 2022-11 0-16 18:17:[address] [facility] PHYSICIAN CERTIFICATION STATEMENT 2022-11 0-05 05:01:00 Doctor Unassigned, [facility] BI SCREENING TOMOSYNTHESIS LEFT 16:46:[address] [facility] TRANSTHORACIC ECHO (TTE) COMPLETE 7-24 16:10:[address] [facility] DEXA AXIAL (HIP AND SPINE) 2023-05-25 14:39:[address] [facility] DEXA AXIAL (HIP AND SPINE) 2023-05-25 14:39:[address] [facility] TRANSTHORACIC ECHO (TTE) COMPLETE 03-26 13:20:[address] [facility] EXTERNAL PROVIDER RECORDS 2023-03-19 05:01:00 Doctor Unassigned, [facility] PATIENT FINANCIAL POLICY 2023-02-25 20:03:36 Doctor Unassigned, [facility] CONSENT/REFUSAL FOR DIAGNOSI S AND TREATMENT 2023-02-05 19:29:48 Doctor Unassigned, [facility] CONSENT/REFUSAL FOR DIAGNOSI S AND TREATMENT 2023-02-05 17:07:37 Doctor Unassigned, [facility] [place] LUMBAR SPINE WO CONTRAST 2023-01-24 23:30:[address] [facility] CT THORACIC SPINE WO CONTRAST 2023-01-24 23:30:[address] [facility] CT THORAX WO CONTRAST 2023-01-24 23:30:[address] [facility] CT THORAX WO CONTRAST 2023-01-24 23:30:[address] [facility] CT CERVICAL SPINE WO CONTRAST 2023-01-24 23:18:[address] [facility] CONSENT/REFUSAL FOR DIAGNOSI S AND TREATMENT 2023-01-24 21:49:33 Doctor Unassigned, [facility] DOWNTIME AMBULATORY DOCUMENTS 2023-01-16 06:01:00 Doctor Unassigned, [facility] ASSIGNMENT OF BENEFITS 2022-12-11 20:20:53 Doctor Unassigned, [facility]ems [facility] COLONOSCOPY (ENDO) 2022-11-27 15:55:[address] [facility] COLONOSCOPY (ENDO) 2022-11-27 15:55:[address] [facility] COLONOSCOPY (ENDO) 2022-11-27 15:55:[address] [facility] ESOPHAGOGASTRODUODENOSCOPY 2022-11-27 15:52:[address] [facility] COLONOSCOPY 2022-11-27 15:52:[address] [facility] EGD (ENDO) 2022-11-27 15:27:[address] [facility] EGD (ENDO) 2022-11-27 15:27:01 Jeramy Beckman [facility] ASSIGNMENT OF BENEFITS 2022-11-27 13:46:38 Doctor Unassigned, [facility] DME/SUPPLY JUSTIFICATION 2022-11-18 06:01:00 Doctor Unassigned, [facility]ems [facility] DISCLOSURE AND CONSENT, MEDI ANDREA AND SURGICAL PROCEDURES 2022-11-12 06:01:00 Doctor Unassigned, [facility] REFERRAL- REQUEST/RESPONSE 2022-11-05 06:01:00 Doctor Unassigned, [facility] IR REMOVAL TUNNELED CENTRAL VENOUS CATHETER WITH PORT/PUMP 2022-10-29 19:24:[address] [facility] IR REMOVAL TUNNELED CENTRAL VENOUS CATHETER WITH PORT/PUMP 2022-10-29 19:24:[address] [facility] IR CENTRALLY INSERTED DEVICE TUNNELED CATHETER WITH PORT 5 OR OLDER 2022-10-29 19:20:[address] [facility] ABORH CONFIRMATION (LAB ONLY) 2022-10-19 17:09:[address] [facility] HB ABO GROUPING 2022-10-19 16:32:[address] [facility] LACTIC ACID WHOLE BLOOD 2022-10-19 16:31:[address] [facility] LIPASE 2022-10-19 16:30:[address] [facility] TROPONIN I 2022-10-19 16:30:[address] [facility] COMP. METABOLIC PANEL (32942) 2022-10-19 16:30:[address] [facility] CBC WITH DIFF 2022-10-19 16:30:[address] [facility] PROTHROMBIN TIME / INR 2022-10-19 16:30:[address] [facility] ACTIVATED PARTIAL THRMPLAS SANTOS 2022-10-01 0 16:30:[address] [facility] N-TERMINAL PRO-BNP 2022-10-19 16:30:[address] [facility] CONSENT/REFUSAL FOR DIAGNOSI S AND TREATMENT 2022-10-19 15:58:33 Doctor Unassigned, [facility] INSURANCE CORRESPONDENCE 2022-10-10 06:01:00 Doctor Unassigned, [facility]ems [facility] ASSIGNMENT OF BENEFITS 2022-10-08 20:30:22 Doctor Unassigned, Weems [facility] CONSENT/REFUSAL FOR DIAGNOSI S AND TREATMENT 2022-10-08 20:29:55 Doctor Unassigned, [facility]ems [facility] DISCLOSURE AND CONSENT, MEDI ANDREA AND SURGICAL PROCEDURES 2022-09-04 05:01:00 Doctor Unassigned, [facility]ems [facility] FERRITIN SERUM 2022-05-07 19:14:[address] [facility] HEPATIC FUNCTION PANEL (8007 6) (ALB,T.PRO,BILI T,BU/BC,ALT,AST,ALK PHOS) 2022-05-07 19:14:[address] [facility] BASIC METABOLIC PANEL (NA, K , CL, CO2, GLUCOSE, BUN, CREATININE, CA) 2022-05-07 19:14:[address] [facility] IRON PANEL 2022-05-07 19:14:[address] [facility] CBC WITH DIFF 2022-05-07 19:14:[address] [facility] GLYCOSYLATED HEMOGLOBIN (A1C) 2022-03-27 16:03:[address] [facility] LIPID PANEL (10548)(TOTAL CHOLESTEROL, TRIGLYCERIDES, HDL) 2022-03-27 16:03:[address] [facility] HCV ANTIBODY 2022-03-27 16:03:[address] [facility] Encounters Start Date/Time End Date/Time Encounter Type Admission Type Attending Clinicians Care Facility Care Department Encounter ID Source 2024-12-14 09:39:29 Outpatient R REINALDO WAYNE CHOCKALINGA M [facility] CCA [id number] [facility] 2024-11-07 10:51:00 Outpatient Sabina Leone [facility] [id number] [facility] 2024-10-13 11:32:00 Outpatient [facility] [id number] [facility] 2024-07-12 11:33:01 [facility] [id number] [facility] 2024-06-13 08:16:00 Outpatient [facility] [id number] [facility] 2018-02-11 16:04:00 Inpatient [facility] [id number] [facility] 2025-01-02 00:00:00 2025-01-02 16:50:14 Transition of Care Kristina Gonzalez Miatha R [address] 1..840.114 350.1.13.10 4.2.7.2.686 [id number] [facility] 2025-01-02 00:00:00 2025-01-02 00:00:00 (TEL) [facility] [id number] [facility] 2024-12-31 13:56:00 2025-01-01 13:37:00 Outpatient VINCENZO MATHIAS [facility] ESCOBAR [id number] [facility] 2024-12-31 13:56:00 2025-01-01 13:37:00 Emergency David Ram David [facility] 1..840.114 350.1.13.10 4.2.7.2.686 [id number] [facility] 2024-12-26 13:00:00 2024-12-26 13:15:00 Leak Detection Engineer Visit 2, Adc Lab Christiano Peacock 2, Adc Lab [facility] BUILD[facility] 1.84.114 350.1.13.10 4.2.7.2.686 [id number] [facility] 2024-12-26 13:00:00 2024-12-26 13:00:00 Outpatient CHRISTIANO WADDELL [facility] [id number] [facility] 2024-12-09 00:00:00 2024-12-12 14:09:36 Telephone Reinaldo Wayne [facility] [place] ([place]) 1.84.114 350.1.13.10 4.2.7.2.686 [id number] [facility] 2024-12-08 11:40:00 2024-12-08 12:23:47 Outpatient R REINALDO WAYNE CHOCKALINGA M [facility] [id number] [facility] 2024-12-08 11:40:00 2024-12-08 12:23:47 Office Visit Reinaldo Wayne [facility] 1.84.114 350.1.13.10 4.2.7.2.686 [id number] [facility] 2024-12-08 00:00:00 2024-12-08 00:00:00 (TEL) [facility] [id number] [facility] 2024-12-02 15:15:00 2024-12-02 15:15:00 Leak Detection Engineer Visit Lab, Slona Ortega Lab, Carmelo Messer [facility] 1..840.114 350.1.13.10 4.2.7.2.686 [id number] [facility] 2024-12-02 13:20:00 2024-12-02 14:28:16 Outpatient R SLOAN FLETCHER HOWARD [facility] [id number] [facility] 2024-12-02 13:20:00 2024-12-02 14:28:16 Office Visit Sloan Fletcher Sebastien [facility] 1.2.840.114 350.1.13.10 4.2.7.2.686 [id number] [facility] 2024-12-01 11:40:00 2024-12-01 11:40:00 Outpatient R REINALDO WAYNE CHOCKALINGA M [facility] [id number] [facility] 2024-11-25 00:00:00 2024-11-28 09:25:05 Telephone [place] [id number] 350.1.13.10 4.2.7.2.686 [id number] [facility] 2024-11-22 00:00:00 2024-11-22 00:00:00 (TEL) STLMLC [facility] [id number] [facility] 2024-11-16 00:00:00 2024-11-16 16:09:52 Telephone [place] [address].2.840.114 350.1.13.10 4.2.7.2.686 [id number] [facility] 2024-11-16 13:40:00 2024-11-16 14:13:11 [facility] [id number] 2024-11-16 13:40:00 2024-11-16 14:13:11 Office Visit [place] [address].2.840.114 350.1.13.10 4.2.7.2.686 [id number] [facility] 2024-11-15 00:00:00 2024-11-15 16:21:29 Telephone Saleem Pavon [facility] PROFESSIO NAL BUILDING 1.84.114 350.1.13.10 4.2.7.2.686 [id number] [facility] 2024-11-10 00:00:00 2024-11-10 00:00:00 (TEL) [facility] [id number] [facility] 2024-11-08 00:00:00 2024-11-08 14:44:00 Nurse Triage Angelica Paniagua Jenny L [facility] [facility]) 1.84.114 350.1.13.10 4.2.7.2.686 [id number] [facility] 2024-11-08 00:00:00 2024-11-08 00:00:00 OFFICE VISIT ESTAB PT LEVEL 4 [facility] [id number] [facility] 2024-11-02 15:05:00 2024-11-02 16:54:00 Emergency X RAQUEL WILKS SANDRA [facility] ERT [id number] [facility] 2024-11-02 15:05:00 2024-11-02 16:54:00 Emergency Raquel Wilks [facility] 1.84.114 350.1.13.10 4.2.7.2.686 [id number] [facility] 2024-11-02 00:00:00 2024-11-02 11:45:10 Telephone Sloan Fletcher [facility] 1.84.114 350.1.13.10 4.2.7.2.686 [id number] [facility] 2024-11-02 00:00:00 2024-11-02 00:00:00 (TEL) STLMLC [facility] [id number] [facility] 2024-10-25 00:00:00 2024-10-25 00:00:00 OFFICE VISIT ESTAB PT LEVEL 4 STLMLC STLMLC [id number] [facility] 2024-10-25 00:00:00 2024-10-25 00:00:00 SUB ANNUAL [facility] VISIT STLMLC STLMLC [id number] [facility] 2024-10-23 00:00:00 2024-10-23 00:00:00 (TEL) STLMLC [facility] [id number] [facility] 2024-10-17 00:00:00 2024-10-17 00:00:00 (TEL) STLMLC [facility] [id number] [facility] 2024-10-13 00:00:00 2024-10-13 00:00:00 (TEL) STLMLC [facility] [id number] [facility] 2024-10-10 00:00:00 2024-10-10 00:00:00 (TEL) STLMLC [facility] [id number] [facility] 2024-10-04 09:45:00 2024-10-04 10:16:40 Outpatient R PAUL ORTEGA CRAIG [facility] [id number] [facility] 2024-10-04 09:45:00 2024-10-04 10:16:40 Office Visit Paul Ortega [facility] 1.2.840.114 350.1.13.10 4.2.7.2.686 [id number] [facility] 2024-09-28 00:00:00 2024-09-28 00:00:00 (TEL) STLMLC STLMLC [id number] [facility] 2024-09-26 00:00:00 2024-09-26 16:41:27 [facility] 1.2.840.114 350.1.13.10 4.2.7.2.686 [id number] [facility] 2024-09-26 14:00:00 2024-09-26 14:13:09 [facility] [id number] [facility] 2024-09-26 14:00:00 2024-09-26 14:13:09 [facility] 1.2.840.114 350.1.13.10 4.2.7.2.686 [id number] [facility] 2024-09-23 14:00:00 2024-09-23 14:00:00 Outpatient R TATI ALEXANDER [facility] [id number] [facility] 2024-09-22 00:00:00 2024-09-22 16:32:10 Telephone Catherine Tati [facility] [place] 1.2840.114 350.1.13.10 4.2.7.2.686 [id number] [facility] 2024-09-19 00:00:00 2024-09-22 15:51:36 Telephone [facility] Padilla [facility] 1.2.840.114 350.1.13.10 4.2.7.2.686 [id number] [facility] 2024-07-20 00:00:00 2024-08-20 18:19:22 Patient Secure Msg ZepedaCharan [facility] 1.2.840.114 350.1.13.10 4.2.7.2.686 [id number] [facility] 2024-08-19 11:20:00 2024-08-19 11:40:00 Telemedici ne Visit Roro Zepedashola Cruz [facility] 1.2.840.114 350.1.13.10 4.2.7.2.686 [id number] [facility] 2024-08-19 11:20:00 2024-08-19 11:20:00 Outpatient R CHARAN ZEPEDA NABIHA [facility] [id number] [facility] 2024-08-18 11:02:58 2024-08-18 23:59:00 Outpatient R CHARAN ZEPEDA NABIHA [facility] [id number] [facility] 2024-08-18 11:02:58 2024-08-18 23:59:00 Hospital Encounter Charan Zepeda [facility] 1.2.840.114 350.1.13.10 4.2.7.2.686 [id number] [facility] 2024-07-21 09:30:00 2024-07-21 09:30:00 Outpatient R VELÁSQUEZ-BAILEE S, MICHELLE VELÁSQUEZ-BAILEE S, MICHELLE [facility] [id number] [facility] 2024-07-20 00:00:00 2024-07-20 00:00:00 (TEL) [facility] [id number] [facility] 2024-07-19 13:30:00 2024-07-19 13:30:00 Outpatient R VELÁSQUEZ-BAILEE S, MICHELLE VELÁSQUEZ-BAILEE S, MICHELLE [facility] [id number] [facility] 2024-07-14 11:38:30 2024-07-14 23:59:00 Outpatient R CHARAN ZEPEDA NABIHA [facility] [id number] [facility] 2024-07-14 11:38:30 2024-07-14 23:59:00 Hospital Encounter Charan Zepeda [facility] 1.2.840.114 350.1.13.10 4.2.7.2.686 [id number] [facility] 2024-07-08 11:20:00 2024-07-08 11:40:00 Telemedici ne Visit Charan Zepeda [facility] 1.2.840.114 350.1.13.10 4.2.7.2.686 [id number] [facility] 2024-07-08 11:20:00 2024-07-08 11:20:00 Outpatient R CHARAN ZEPEDALLUVIA CHARAN [facility] [id number] [facility] 2024-07-06 13:10:01 2024-07-06 23:59:00 Hospital Encounter Charan Zepedasmeen [facility] 1.2.840.114 350.1.13.10 4.2.7.2.686 [id number] [facility] 2024-07-06 13:09:37 2024-07-06 13:09:37 Outpatient R CHARAN ZEPEDA CHARAN [facility] [id number] [facility] 2024-07-06 13:09:37 2024-07-06 13:09:37 Hospital Encounter Charan Zepedasmeen [facility] 1.2.840.114 350.1.13.10 4.2.7.2.686 [id number] [facility] 2024-07-06 13:09:12 2024-07-06 13:09:12 Hospital Encounter Radiology Radiology [facility] 1.2.840.114 350.1.13.10 4.2.7.2.686 [id number] [facility] 2024-06-23 00:00:00 2024-06-23 15:18:08 Telephone Kley, Tammy [facility] 1.2.840.114 350.1.13.10 4.2.7.2.686 [id number] [facility] 2024-06-23 10:40:00 2024-06-23 11:00:00 Telemedici ne Visit [facility] 1.2.840.114 350.1.13.10 4.2.7.2.686 [id number] [facility] 2024-06-23 10:40:00 2024-06-23 10:40:00 Outpatient CHARAN MASSEY NABIHA [facility] [id number] [facility] 2024-06-13 00:00:00 2024-06-13 00:00:00 OFFICE VISIT NEW PT LEVEL 4 [facility] [id number] [facility] 2024-05-09 00:00:00 2024-06-11 18:21:36 Patient Secure Msg Doctor Unassigned, [place] [facility] 1.840.114 350.1.13.10 4.2.7.2.686 [id number] [facility] 2024-05-23 16:30:00 2024-05-23 16:30:00 Office Visit Emi Bradshawssica [facility] 1.2.840.114 350.1.13.10 4.2.7.2.686 [id number] [facility] 2024-05-23 16:30:00 2024-05-23 16:26:07 Outpatient EMI RAGSDALESSICA [facility] [id number] [facility] 2022-08-19 00:00:00 2024-05-17 02:13:13 Mobile Device Encounter Kaylene Bowling [facility] 1.2840.114 350.1.13.10 4.2.7.2.686 [id number] [facility] 2024-05-16 00:00:00 2024-05-16 17:48:26 Letter (Out) Tati Alexander [facility] 1..840.114 350.1.13.10 4.2.7.2.686 [id number] [facility] 2024-05-12 00:00:00 2024-05-12 11:05:05 Letter (Out) Neurology [facility] 1..840.114 350.1.13.10 4.2.7.2.686 [id number] [facility] 2024-05-10 13:00:00 2024-05-10 13:00:00 Outpatient R HELEN BRADSHAW [facility] [id number] [facility] 2024-05-05 08:30:00 2024-05-05 08:30:00 [facility] [id number] [facility] 2024-05-05 08:30:00 2024-05-05 08:30:00 Outpatient R OLLIE LOOMIS [facility] [id number] [facility] 2024-05-04 16:00:00 2024-05-04 16:35:05 Outpatient R KRISTINE NORTON [facility] [id number] [facility] 2024-05-04 16:00:00 2024-05-04 16:35:05 Office Visit Kristine Norton [facility] 1..840.114 350.1.13.10 4.2.7.2.686 [id number] [facility] 2024-05-04 14:00:00 2024-05-04 14:00:00 Outpatient R TATI ALEXANDER [facility] [id number] [facility] 2024-05-03 10:30:00 2024-05-03 10:30:00 Outpatient TADEO MANZANO [facility] [id number] [facility] 2024-05-02 00:00:00 2024-05-03 08:05:57 Patient Secure Msduane MadonnaTati boykin [facility] [place] 1.2.840.114 350.1.13.10 4.2.7.2.686 [id number] [facility] 2024-05-02 15:00:00 2024-05-02 15:00:00 Outpatient KRISTINE YEPEZ [facility] [id number] [facility] 2024-04-29 00:00:00 2024-04-29 15:05:39 Telephone Tati Alexander 1.2.840.1 [id number] 3.104.2.7 .3.912945 .8 [id number] [facility] 2024-04-28 00:00:00 2024-04-29 11:17:15 Telephone Kristine Norton 1.2.840.1 06754.1.1 3.104.2.7 .3.086409 .8 [id number] [facility] 2024-04-27 00:00:00 2024-04-28 10:22:59 Telephone Kristine Norton 1.2.840.1 48433.1.1 3.104.2.7 .3.610876 .8 [id number] [facility] 2024-04-26 07:59:47 2024-04-26 23:59:00 Outpatient CHARAN MASSEY [facility] [id number] [facility] 2024-04-26 07:59:47 2024-04-26 23:59:00 Hospital Encounter Charan Zepeda 1.2.840.1 33040.1.1 3.104.2.7 .3.753017 .8 [id number] [facility] 2024-04-15 13:00:00 2024-04-15 13:00:00 Outpatient R BOUCHRA GUTIERREZ [facility] [id number] [facility] 2024-04-14 11:00:00 2024-04-14 11:00:00 Outpatient R CHARAN ZEPEDA [facility] [id number] [facility] 2024-04-08 13:15:00 2024-04-08 13:48:38 Outpatient R KAI GARCIA NATHAN [facility] [id number] [facility] 2024-04-08 13:15:00 2024-04-08 13:48:38 Office Visit Kai Garcia 1.2.840.1 33251.1.1 3.104.2.7 .3.146055 .8 [id number] [facility] 2024-04-08 00:00:00 2024-04-08 00:00:00 Travel 1.2.840.1 70096.1.1 3.104.2.7 .3.807100 .8 1.2.840.114 350.1.13.10 4.2.7.3.698 [id number] [facility] 2024-03-24 00:00:00 2024-03-25 13:34:13 Refill Helen Bradshaw 1.2.840.1 65389.1.1 3.104.2.7 .3.980487 .8 [id number] [facility] 2024-03-24 00:00:00 2024-03-24 10:02:13 Refill Berenice Tamayo 1.2.840.1 14978.1.1 3.104.2.7 .3.201799 .8 [id number] [facility] 2024-03-24 00:00:00 2024-03-24 09:34:22 Refill Michelle Grewal A 1.2.840.1 39655.1.1 3.104.2.7 .3.027958 .8 [id number] [facility] 2024-02-11 00:00:00 2024-03-19 18:10:32 Patient Secure Msg Doctor Unassigned, [facility] 1.2.840.1 74504.1.1 3.104.2.7 .3.950623 .8 [id number] [facility] 2024-03-16 00:00:00 2024-03-16 13:23:18 Telephone Bouchra Gutierrez 1.2.840.1 36006.1.1 3.104.2.7 .3.455788 .8 [id number] [facility] 2024-03-01 00:00:00 2024-03-01 11:29:32 Telephone Pcp, Patient Does Not Have A 1.2.840.1 64961.1.1 3.104.2.7 .3.787509 .8 [id number] [facility] 2024-02-25 15:25:27 2024-02-25 23:59:00 Outpatient R BOUCHRA GUTIERREZ [facility] [id number] [facility] 2024-02-25 15:25:27 2024-02-25 23:59:00 Hospital Encounter Bouchra Gutierrez 1.2.840.1 99993.1.1 3.104.2.7 .3.814741 .8 [id number] [facility] 2024-02-25 00:00:00 2024-02-25 00:00:00 Travel 1.2.840.1 97353.1.1 3.104.2.7 .3.847927 .8 1.2.840.114 350.1.13.10 4.2.7.3.698 084.8 [id number] [facility] 2024-02-24 00:00:00 2024-02-24 08:38:11 Telephone Helen Bradshaw 1.2.840.1 53177.1.1 3.104.2.7 .3.536041 .8 [id number] [facility] 2024-02-19 14:00:00 2024-02-19 14:47:36 Outpatient R BOUCHRA GUTIERREZ [facility] [id number] [facility] 2024-02-19 14:00:00 2024-02-19 14:47:36 Office Visit Bouchra Gutierrez 1.2.840.1 28348.1.1 3.104.2.7 .3.997412 .8 [id number] [facility] 2024-02-18 00:00:00 2024-02-18 14:03:51 Telephone Helen Bradshaw 1.2.840.1 69829.1.1 3.104.2.7 .3.740760 .8 [id number] [facility] 2024-02-18 11:30:00 2024-02-18 12:13:12 Outpatient R EHLEN BRADSHAW [facility] [id number] [facility] 2024-02-18 11:30:00 2024-02-18 12:13:12 Office Visit Helen Bradshaw 1.2.840.1 08409.1.1 3.104.2.7 .3.407598 .8 [id number] [facility] 2024-02-18 00:00:00 2024-02-18 00:00:00 Travel 1.2.840.1 46663.1.1 3.104.2.7 .3.288649 .8 1.2.840.114 350.1.13.10 4.2.7.3.698 084.8 [id number] [facility] 2024-02-12 00:00:00 2024-02-12 11:05:40 Orders Only Doctor Unassigned, [place] 1.2.840.1 36012.1.1 3.104.2.7 .3.479435 .8 [id number] [facility] 2024-02-11 13:00:00 2024-02-11 13:40:10 Outpatient R MICHELLE GREWAL [facility] [id number] [facility] 2024-02-11 13:00:00 2024-02-11 13:40:10 Office Visit Michelle Grewal 1.2.840.1 05262.1.1 3.104.2.7 .3.588584 .8 [id number] [facility] 2024-02-11 00:00:00 2024-02-11 00:00:00 Travel 1.2.840.1 00727.1.1 3.104.2.7 .3.119145 .8 1.2.840.114 350.1.13.10 4.2.7.3.698 084.8 [id number] [facility] 2024-02-05 00:00:00 2024-02-05 14:58:22 Telephone Charan Zepeda 1.2.840.1 51645.1.1 3.104.2.7 .3.847960 .8 [id number] [facility] 2024-01-26 00:00:00 2024-01-26 00:00:00 Patient Secure Msg Doctor Unassigned, [place] [facility] 1.2.840.114 350.1.13.10 4.2.7.2.686 [id number] [facility] 2024-01-21 10:20:00 2024-01-21 12:03:20 Outpatient R CHARAN ZEPEDA [facility] [id number] [facility] 2024-01-21 10:20:00 2024-01-21 12:03:20 Office Visit [facility] 1.2.840.114 350.1.13.10 4.2.7.2.686 [id number] 080 [id number] [facility] 2024-01-06 00:00:00 2024-01-06 00:00:00 Orders Only Doctor Unassigned, [facility] 1.2.840.114 350.1.13.10 4.2.7.2.686 [id number] [id number] [facility] 2024-01-04 00:00:00 2024-01-04 00:00:00 Telephone Charan Zepeda BUILDING 1.2.840.114 350.1.13.10 4.2.7.2.686 [id number] 080 [id number] [facility] 2023-12-31 00:00:00 2023-12-31 00:00:00 Telephone Charan Zepeda BUILDING 1.2.840.114 350.1.13.10 4.2.7.2.686 [id number] 080 [id number] [facility] 2023-12-31 00:00:00 2023-12-31 00:00:00 Patient Secure Msg Charan Zepeda BUILDING 1.2.840.114 350.1.13.10 4.2.7.2.686 [id number] 080 [id number] [facility] 2023-12-08 13:45:00 2023-12-08 13:45:00 Outpatient R PAUL ORTEGA CRAIG [facility] [id number] [facility] 2023-12-01 13:00:00 2023-12-01 13:00:00 Outpatient R [facility] [id number] [facility] 2023-11-25 13:00:00 2023-11-25 13:00:00 Outpatient R OLLIE LOOMIS [facility] [id number] [facility] 2023-11-18 10:15:00 2023-11-18 10:46:51 Ancillary Visit Alexx Ashlee Combs Charan Zepeda [facility] BUILDING 1.840.114 350.1.13.10 4.2.7.2.686 [id number] [facility] 2023-11-18 09:30:00 2023-11-18 10:24:28 Ancillary Visit Ashlee Harris Craig L [facility] BUILDING 1.84.114 350.1.13.10 4.2.7.2.686 [id number] [facility] 2023-11-11 10:22:49 2023-11-11 23:59:00 Outpatient R CHARAN ZEPEDA CHARAN [facility] [id number] [facility] 2023-11-11 10:22:49 2023-11-11 23:59:00 Hospital Encounter Duane CharanMohinder Gutiérrez [facility] 1.84.114 350.1.13.10 4.2.7.2.686 [id number] [facility] 2023-11-10 00:00:00 2023-11-10 00:00:00 Outpatient KAI BROWER NATHAN [facility] [id number] [facility] 2023-11-09 09:00:00 2023-11-09 09:40:02 Outpatient R HELEN BRADSHAW [facility] [id number] [facility] 2023-11-09 09:00:00 2023-11-09 09:40:02 Office Visit Helen Bradshaw [facility] 1..84.114 350.1.13.10 4.2.7.2.686 [id number] [id number] [facility] 2023-11-09 00:00:00 2023-11-09 00:00:00 Patient Secure Msg Doctor Unassigned, [place] [facility] 1.114 350.1.13.10 4.2.7.2.686 [id number] 019 [id number] [facility] 2023-11-06 10:00:00 2023-11-06 11:00:00 Telemedici ne Visit Savana Grace [facility] BU[facility] 1.114 350.1.13.10 4.2.7.2.686 [id number] [facility] 2023-11-06 10:00:00 2023-11-06 10:00:00 [facility] [id number] 2023-11-06 09:40:00 2023-11-06 09:40:00 Outpatient R CHARAN ZEPEDA [facility] [id number] [facility] 2023-11-05 15:30:00 2023-11-05 16:30:00 Telemedici ne Visit Savana Grace [facility] 1.114 350.1.13.10 4.2.7.2.686 [id number] [facility] 2023-11-05 13:45:00 2023-11-05 16:05:09 Outpatient R PAUL ORTEGA CRAIG [facility] [id number] [facility] 2023-11-05 15:30:00 2023-11-05 15:30:00 Outpatient R SAVANA GRACE [facility] [id number] [facility] 2023-11-05 13:45:00 2023-11-05 14:30:00 Ancillary Visit Ashlee Harris Craig L [facility] BUILDING 1..114 350.1.13.10 4.2.7.2.686 [id number] [facility] 2023-11-05 13:00:00 2023-11-05 14:01:19 Outpatient R CHARAN ZEPEDA [facility] [id number] [facility] 2023-11-05 13:00:00 2023-11-05 14:01:19 Ancillary Visit Silvina Person Nabiha Yasmeen [facility] 1.2.840.114 350.1.13.10 4.2.7.2.686 [id number] [facility] 2023-10-29 15:45:47 2023-10-29 23:59:00 Outpatient KAI BROWER [facility] [id number] [facility] 2023-10-29 15:45:00 2023-10-29 23:59:00 Hospital Encounter Kai Garcia [facility] 1.2.840.114 350.1.13.10 4.2.7.2.686 [id number] [facility] 2023-10-29 08:45:00 2023-10-29 09:26:34 Ancillary Visit Ashlee Harris Craig L [facility] BUILDING 1.2.840.114 350.1.13.10 4.2.7.2.686 [id number] [facility] 2023-10-29 00:00:00 2023-10-29 00:00:00 Case Management Ashlee Harris [facility] BUILDING 1.2.840.114 350.1.13.10 4.2.7.2.686 [id number] [facility] 2023-10-27 09:40:00 2023-10-28 15:20:29 Outpatient R CHARAN ZEPEDA NABIHA [facility] [id number] [facility] 2023-10-27 09:40:00 2023-10-27 10:00:00 Telemedici ne Visit Roro Zepedashola Cruz [employer] BUILDING 1.20.114 350.1.13.10 4.2.7.2.686 [id number] 080 [id number] [facility] 2023-10-15 11:00:00 2023-10-15 13:39:05 Outpatient R CHARAN ZEPEDA NABIHA [facility] [id number] [facility] 2023-10-15 11:00:00 2023-10-15 13:39:05 Nurse Visit 9, [facility] Infusion Chair Charan Zepeda [facility] 1.20.114 350.1.13.10 4.2.7.2.686 [id number] [id number] [facility] 2023-10-14 14:00:00 2023-10-14 15:09:05 Outpatient R VLADISLAV [facility] [id number] [facility] 2023-10-14 14:00:00 2023-10-14 15:09:05 Office Visit Vladislav [facility] 1.0.114 350.1.13.10 4.2.7.2.686 [id number] [facility] 2023-10-14 00:00:00 2023-10-14 00:00:00 Case Management Roro Zepedashola [facility] 1.20.114 350.1.13.10 4.2.7.2.686 [id number] [facility] 2023-10-13 09:00:00 2023-10-13 14:39:02 Outpatient R CHARAN ZEPEDA NABIHA [facility] [id number] [facility] 2023-10-13 13:00:00 2023-10-13 14:19:52 Outpatient R PAUL ORTEGA CRAIG [facility] [id number] [facility] 2023-10-13 13:00:00 2023-10-13 14:19:52 Ancillary Visit Steven AshleePaul Grossman [facility] BUILDING 1.0.114 350.1.13.10 4.2.7.2.686 [id number] [facility] 2023-10-13 09:00:00 2023-10-13 09:15:00 Leak Detection Engineer Visit 2, Adc Lab Charan Zepedasmeen [facility] BUILDING 1..114 350.1.13.10 4.2.7.2.686 [id number] [facility] 2023-10-13 00:00:00 2023-10-13 00:00:00 Orders Only Doctor Unassigned, Weems [facility] 1.114 350.1.13.10 4.2.7.2.686 [id number] [facility] 2023-10-09 13:45:00 2023-10-09 16:53:49 Outpatient R KAI GARCIA NATHAN [facility] [id number] [facility] 2023-10-09 13:45:00 2023-10-09 14:15:00 Office Visit Kai Garcia [facility] 1..114 350.1.13.10 4.2.7.2.686 [id number] [facility] 2023-10-03 00:00:00 2023-10-03 00:00:00 Helen Jean [facility] 1.114 350.1.13.10 4.2.7.2.686 [id number] 092 [id number] [facility] 2023-09-24 11:00:00 2023-09-24 13:37:17 Outpatient R CHARAN ZEPEDA NABIHA [facility] [id number] [facility] 2023-09-24 11:00:00 2023-09-24 13:37:17 Nurse Visit 7, [facility] Infusion Chair Charan Zepedasmeen [facility] 1.840.114 350.1.13.10 4.2.7.2.686 [id number] [id number] [facility] 2023-09-23 00:00:00 2023-09-23 00:00:00 Letter (Out) Helen Bradshaw [facility] 1..840.114 350.1.13.10 4.2.7.2.686 [id number] 092 [id number] [facility] 2023-09-22 09:00:00 2023-09-22 10:48:20 Outpatient R CHARAN ZEPEDA NABIHA [facility] [id number] [facility] 2023-09-22 09:00:00 2023-09-22 10:48:20 Leak Detection Engineer Visit 2, Adc [facility] 1..840.114 350.1.13.10 4.2.7.2.686 [id number] [facility] 2023-09-17 00:00:00 2023-09-17 00:00:00 Patient Secure Msg Belkis Rollins BUILDING 1..840.114 350.1.13.10 4.2.7.2.686 [id number] [id number] [facility] 2023-09-15 08:42:02 2023-09-15 23:59:00 Outpatient R BELKIS ROLLINS [facility] [id number] [facility] 2023-09-15 08:42:02 2023-09-15 23:59:00 Hospital Encounter Belkis Rollins [facility] 1.2.840.114 350.1.13.10 4.2.7.2.686 [id number] [facility] 2023-09-14 12:46:17 2023-09-14 23:59:00 Outpatient R DUANE CHARAN [facility] [id number] [facility] 2023-09-14 12:46:17 2023-09-14 23:59:00 Hospital Encounter Charan Zepedasmeen [facility] 1.840.114 350.1.13.10 4.2.7.2.686 [id number] [facility] 2023-09-03 10:30:00 2023-09-03 13:30:30 Outpatient R DUANE CHARANSHOLA ZEPEDA CHARAN [facility] [id number] [facility] 2023-09-03 10:30:00 2023-09-03 12:30:00 Nurse Visit 5, [facility] Infusion Chair Duane Charan Mccoysmeen [facility] 1.840.114 350.1.13.10 4.2.7.2.686 [id number] 053 [id number] [facility] 2023-09-03 09:40:00 2023-09-03 10:39:11 Office Visit Yaneth Minor BUILDING 1.840.114 350.1.13.10 4.2.7.2.686 [id number] 080 [id number] [facility] 2023-09-03 00:00:00 2023-09-03 00:00:00 Orders Only Doctor Unassigned, Weems [facility] 1.840.114 350.1.13.10 4.2.7.2.686 [id number] [facility] 2023-09-02 00:00:00 2023-09-02 00:00:00 [facility] 1.2.840.114 350.1.13.10 4.2.7.2.686 [id number] [id number] [facility] 2023-09-01 09:00:00 2023-09-01 14:05:10 Outpatient CHARAN MASSEY NABIHA [facility] [id number] [facility] 2023-09-01 09:00:00 2023-09-01 09:15:00 Leak Detection Engineer Visit 2, [facility] 1..840.114 350.1.13.10 4.2.7.2.686 [id number] [facility] 2023-09-01 00:00:00 2023-09-01 00:00:00 [facility] 1..840.114 350.1.13.10 4.2.7.2.686 [id number] 092 [id number] [facility] 2023-09-01 00:00:00 2023-09-01 00:00:00 Telephone Kristine Norton [facility] BUILDING 1.2.840.114 350.1.13.10 4.2.7.2.686 [id number] [facility] 2023-08-13 11:00:00 2023-08-13 13:32:48 Outpatient R CHARAN ZEPEDA [facility] [id number] [facility] 2023-08-13 11:00:00 2023-08-13 13:32:48 Nurse Visit 5, [facility] Infusion Chair Charan Zepeda [facility] 1.2840.114 350.1.13.10 4.2.7.2.686 [id number] [id number] [facility] 2023-08-11 13:00:00 2023-08-11 13:05:49 Outpatient R CHARAN ZEPEDA [facility] [id number] [facility] 2023-08-11 13:00:00 2023-08-11 13:05:49 Leak Detection Engineer Visit 2, [facility] 1.0.114 350.1.13.10 4.2.7.2.686 [id number] [facility] 2023-08-07 09:00:00 2023-08-07 09:30:00 [facility] 1.84.114 350.1.13.10 4.2.7.2.686 [id number] 092 [id number] [facility] 2023-08-07 09:00:00 2023-08-07 09:00:00 [id number] 2023-07-31 11:10:35 2023-07-31 23:59:00 [id number] 2023-07-31 10:40:00 2023-07-31 23:59:00 [facility] 1.20.114 350.1.13.10 4.2.7.2.686 [id number] [facility] 2023-07-23 11:30:00 2023-07-23 13:30:00 Nurse Visit 11, [facility] 1.0.114 350.1.13.10 4.2.7.2.686 [id number] [facility] 2023-07-23 11:30:00 2023-07-23 13:24:26 Outpatient R CHARAN ZEPEDA [facility] [id number] [facility] 2023-07-21 09:00:00 2023-07-21 09:00:00 Outpatient R [facility] [id number] [facility] 2023-07-20 11:00:00 2023-07-20 11:40:55 Outpatient R CHARAN ZEPEDA [facility] [id number] [facility] 2023-07-20 11:00:00 2023-07-20 11:15:00 Leak Detection Engineer Visit 2, Adc Lab Roro Zepedashola MccoyNancy [facility] BUILDING 1.2.840.114 350.1.13.10 4.2.7.2.686 [id number] [facility] 2023-07-13 10:15:00 2023-07-13 11:19:59 Outpatient R CHARAN ZEPEDA [facility] [id number] [facility] 2023-07-13 10:15:00 2023-07-13 11:19:59 Ancillary Visit Silvina Person Nabiha Yasmeen [facility] BUILDING 1.2.840.114 350.1.13.10 4.2.7.2.686 [id number] [facility] 2023-07-13 00:00:00 2023-07-13 00:00:00 Telephone Helen Bradshaw [facility] 1.2.840.114 350.1.13.10 4.2.7.2.686 [id number] [id number] [facility] 2023-07-08 08:00:00 2023-07-08 09:48:52 Ancillary Visit Silvina Person [facility] 1.840.114 350.1.13.10 4.2.7.2.686 [id number] [facility] 2023-07-06 11:30:00 2023-07-06 11:30:00 Office Visit Helen Bradshaw [facility] 1.84.114 350.1.13.10 4.2.7.2.686 [id number] [facility] 2023-07-06 11:30:00 2023-07-06 10:10:41 Outpatient R EMI BRADSHAWSSICA [facility] [id number] [facility] 2023-07-03 09:00:00 2023-07-03 09:00:00 Outpatient R HELEN BRADSHAW [facility] [id number] [facility] 2023-07-02 11:00:00 2023-07-02 13:22:55 [facility] [id number] [facility] 2023-07-02 11:00:00 2023-07-02 13:00:00 Nurse Visit 7, [facility] Infusion Chair Slick Zepedaa Nancy [facility] 1..114 350.1.13.10 4.2.7.2.686 [id number] [id number] [facility] 2023-07-01 10:40:00 2023-07-01 11:00:00 Telemedici ne Visit Roro Zepedaiha Nancy [facility] BUILDING 1.84.114 350.1.13.10 4.2.7.2.686 [id number] [facility] 2023-07-01 10:40:00 2023-07-01 10:40:00 Outpatient R CHARAN ZEPEDA [facility] [id number] [facility] 2023-07-01 00:00:00 2023-07-01 00:00:00 Telephone Charan Zepeda BUILDING 1.2.840.114 350.1.13.10 4.2.7.2.686 [id number] [facility] 2023-06-30 09:00:00 2023-06-30 14:33:48 Outpatient R SEANLLUVIA CHARAN [facility] [id number] [facility] 2023-06-30 09:00:00 2023-06-30 09:15:00 Leak Detection Engineer Visit 2, Adc Lab Charan Zepedasmeen [facility] BUILDING 1.2840.114 350.1.13.10 4.2.7.2.686 [id number] [facility] 2023-06-22 10:06:25 2023-06-22 23:59:00 Outpatient R DUANE CHARANSHOLA ZEPEDA CHARAN [facility] [id number] [facility] 2023-06-22 10:00:00 2023-06-22 23:59:00 Hospital Encounter Duane Charan Mccoysmeen [facility] 1.2840.114 350.1.13.10 4.2.7.2.686 [id number] [facility] 2023-06-22 00:00:00 2023-06-22 00:00:00 Helen Jean [facility] 1.2.840.114 350.1.13.10 4.2.7.2.686 [id number] 092 [id number] [facility] 2023-06-15 00:00:00 2023-06-15 00:00:00 Telephone Charan Zepeda [facility] 1.2.840.114 350.1.13.10 4.2.7.2.686 [id number] 080 [id number] [facility] 2023-06-11 11:00:00 2023-06-11 11:00:00 Outpatient R CHARAN ZEPEDA [facility] [id number] [facility] 2023-06-11 00:00:00 2023-06-11 00:00:00 Telephone Pcp, Patient [facility] Not Have [facility] 1..840.114 350.1.13.10 4.2.7.2.686 [id number] [id number] [facility] 2023-06-03 00:00:00 2023-06-03 00:00:00 Telephone Bradshaw [facility] BUILDING 1.2.840.114 350.1.13.10 4.2.7.2.686 [id number] [id number] [facility] 2023-06-01 09:00:00 2023-06-01 14:00:23 Out[facility] [id number] [facility] 2023-06-01 09:00:00 2023-06-01 14:00:23 Office Visit Augustine [facility] 1.2.840.114 350.1.13.10 4.2.7.2.686 [id number] 092 [id number] [facility] 2023-05-28 00:00:00 2023-05-28 00:00:00 Telephone Charan Zepeda BUILDING 1..840.114 350.1.13.10 4.2.7.2.686 [id number] 080 [id number] [facility] 2023-05-25 09:05:01 2023-05-25 23:59:00 Outpatient R CHARAN ZEPEDA [facility] [id number] [facility] 2023-05-25 09:05:01 2023-05-25 23:59:00 Hospital Encounter Charan Zepeda [facility] 1.0.114 350.1.13.10 4.2.7.2.686 [id number] [facility] 2023-05-22 00:00:00 2023-05-22 00:00:00 Patient Secure Msg Doctor Unassigned, Weems [facility] 1.0.114 350.1.13.10 4.2.7.2.686 [id number] [facility] 2023-05-21 11:30:00 2023-05-21 14:14:48 Outpatient R DUANE CHARAN [facility] [id number] [facility] 2023-05-21 11:30:00 2023-05-21 13:30:00 Nurse Visit 5, [facility] Infusion Chair Charan Zepedasmeen [facility] 1..114 350.1.13.10 4.2.7.2.686 [id number] [id number] [facility] 2023-05-21 00:00:00 2023-05-21 00:00:00 Telephone Charan [facility]edasmeen [facility] 1.0.114 350.1.13.10 4.2.7.2.686 [id number] [id number] [facility] 2023-05-19 09:15:00 2023-05-19 13:15:30 Outpatient R DUANE CHARAN [facility] [id number] [facility] 2023-05-19 09:15:00 2023-05-19 09:30:00 Leak Detection Engineer Visit 2, Adc Lab Charan Zepedasmeen [facility] PROFESSIO [facility] BUILDING 1.0.114 350.1.13.10 4.2.7.2.686 [id number] [facility] 2023-05-13 00:00:00 2023-05-13 00:00:00 Outpatient R KRISTINE NORTON [facility] [id number] [facility] 2023-04-30 13:00:00 2023-04-30 15:00:00 Nurse Visit 1, [facility] Infusion Chair Charan Zepeda [facility] 1.2840.114 350.1.13.10 4.2.7.2.686 [id number] 053 [id number] [facility] 2023-04-30 11:00:00 2023-04-30 11:59:59 Outpatient R RORO ZEPEDAIHA [facility] [id number] [facility] 2023-04-30 11:00:00 2023-04-30 11:59:59 Office Visit Charan Zepeda [facility] 1.2840.114 350.1.13.10 4.2.7.2.686 [id number] [facility] 2023-04-30 11:00:00 2023-04-30 11:00:00 Outpatient R RORO ZEPEDAIHA [facility] [id number] [facility] 2023-04-29 10:30:00 2023-04-29 13:24:42 Outpatient R CHARAN ZEPEDA [facility] [id number] [facility] 2023-04-29 10:30:00 2023-04-29 13:24:42 Leak Detection Engineer Visit 2, [facility] 1.2840.114 350.1.13.10 4.2.7.2.686 [id number] [facility] 2023-04-21 00:00:00 2023-04-21 00:00:00 Refill Charan [facility]edasmeen [facility] 1.2840.114 350.1.13.10 4.2.7.2.686 [id number] [facility] 2023-04-21 00:00:00 2023-04-21 00:00:00 Lavon Snider TIA BUILDING 1.2.840.114 350.1.13.10 4.2.7.2.686 [id number] [facility] 2023-04-09 11:00:00 2023-04-09 13:53:19 Outpatient R SEANLLUVIAROROCHARAN [facility] [id number] [facility] 2023-04-09 11:00:00 2023-04-09 13:53:19 Nurse Visit 8, [facility] Infusion Chair Seanlluvia Charan [facility] 1.2.840.114 350.1.13.10 4.2.7.2.686 [id number] [facility] 2023-04-08 08:45:00 2023-04-08 13:10:20 Outpatient R SLICK ZEPEDAA [facility] [id number] [facility] 2023-04-08 08:45:00 2023-04-08 09:00:00 Leak Detection Engineer Visit 2, [facility] Duane Charan Nancy [facility] 1.2.840.114 350.1.13.10 4.2.7.2.686 [id number] [facility] 2023-04-02 00:00:00 2023-04-02 00:00:00 Telephone Charan Z[facility]asmeen [facility] 1.2.840.114 350.1.13.10 4.2.7.2.686 [id number] [facility] 2023-03-26 07:18:06 2023-03-26 23:59:00 [facility] 1.2.840.114 350.1.13.10 4.2.7.2.686 [id number] [facility] 2023-03-26 13:00:00 2023-03-26 13:00:00 Outpatient R AUGUSTINE HELEN [facility] [id number] [facility] 2023-03-19 11:00:00 2023-03-19 13:00:00 Nurse Visit 8, [facility] Infusion Chair Charan Zepeda [facility] 1.114 350.1.13.10 4.2.7.2.686 [id number] [facility] 2023-03-19 09:40:00 2023-03-19 12:31:41 Outpatient R CHARAN ZEPEDA [facility] [id number] [facility] 2023-03-19 09:40:00 2023-03-19 12:31:41 Office Visit [facility] 1.84.114 350.1.13.10 4.2.7.2.686 [id number] [facility] 2023-03-19 00:00:00 2023-03-19 00:00:00 Orders Only Doctor Unassigned, [facility] 1.840.114 350.1.13.10 4.2.7.2.686 [id number] [facility] 2023-03-17 15:00:00 2023-03-17 15:31:25 Outpatient R CHARAN ZEPEDA [facility] [id number] [facility] 2023-03-17 15:00:00 2023-03-17 15:15:00 Leak Detection Engineer Visit 2, [facility] Charan Zepeda [facility] 1..840.114 350.1.13.10 4.2.7.2.686 [id number] [facility] 2023-02-26 11:00:00 2023-02-26 13:26:08 Nurse Visit 1, [facility] Infusion Chair Charan Zepeda [facility] 1.840.114 350.1.13.10 4.2.7.2.686 [id number] [id number] [facility] 2023-02-26 09:40:00 2023-02-26 10:30:13 Outpatient R CHARAN ZEPEDA [facility] [id number] [facility] 2023-02-26 09:40:00 2023-02-26 10:30:13 Office Visit Charan Zepeda [facility] 1.2.840.114 350.1.13.10 4.2.7.2.686 [id number] [id number] [facility] 2023-02-25 14:00:00 2023-02-25 15:29:48 Outpatient R CHARAN ZEPEDA [facility] [id number] [facility] 2023-02-25 14:00:00 2023-02-25 14:15:00 Leak Detection Engineer Visit 2, Adc Lab Charan Zepeda [facility] 1.2.840.114 350.1.13.10 4.2.7.2.686 [id number] 353 [id number] [facility] 2023-02-25 00:00:00 2023-02-25 00:00:00 Orders Only Doctor Unassigned, Weems [facility] 1.2.840.114 350.1.13.10 4.2.7.2.686 [id number] [id number] [facility] 2023-02-20 13:15:00 2023-02-20 13:15:00 Outpatient R CHARAN ZEPEDA [facility] [id number] [facility] 2023-02-20 00:00:00 2023-02-20 00:00:00 Case Management Charan Zepeda BUILDING 1.2.840.114 350.1.13.10 4.2.7.2.686 [id number] 080 [id number] [facility] 2023-02-10 00:00:00 2023-02-10 00:00:00 Lavon Snider [facility] 1.2.840.114 350.1.13.10 4.2.7.2.686 [id number] 081 [id number] [facility] 2023-02-09 00:00:00 2023-02-09 00:00:00 Letter (Out) Clinic, [facility] Neurology Resident [facility] 1.2.840.114 350.1.13.10 4.2.7.2.686 [id number] 092 [id number] [facility] 2023-02-06 11:30:00 2023-02-06 11:30:00 Outpatient LAVON VELEZ LAUREN [facility] [id number] [facility] 2023-02-05 13:42:00 2023-02-05 14:33:00 Emergency Raquel Wilks [facility] 1.2.840.114 350.1.13.10 4.2.7.2.686 [id number] [id number] [facility] 2023-02-05 11:21:00 2023-02-05 12:12:00 Emergency X [facility] ERT [id number] [facility] 2023-02-05 11:21:00 2023-02-05 12:12:00 Emergency [facility] 1.2.840.114 350.1.13.10 4.2.7.2.686 [id number] [facility] 2023-02-05 10:00:00 2023-02-05 10:41:17 Outpatient CHARAN MSASEY [facility] [id number] [facility] 2023-02-05 10:00:00 2023-02-05 10:41:17 Outpatient R DUANEROROCHARAN [facility] ERT [id number] [facility] 2023-02-05 10:00:00 2023-02-05 10:41:17 Office Visit Roro Zepedaihlucretia MccoyNancy [facility] BUILDING 1.84.114 350.1.13.10 4.2.7.2.686 [id number] 080 [id number] [facility] 2023-02-05 00:00:00 2023-02-05 00:00:00 Patient Secure Msg Doctor Unassigned, Weems [facility] 1.114 350.1.13.10 4.2.7.2.686 [id number] [facility] 2023-02-05 00:00:00 2023-02-05 00:00:00 Patient Secure Msg Doctor Unassigned, Weems [facility] 1..114 350.1.13.10 4.2.7.2.686 [id number] [facility] 2023-02-04 12:00:00 2023-02-04 12:00:00 Outpatient R SEANCHARAN TEIXEIRA [facility] [id number] [facility] 2023-02-03 09:30:00 2023-02-03 09:30:00 Outpatient R CHARAN ZEPEDA [facility] [id number] [facility] 2023-02-02 10:00:00 2023-02-02 10:08:42 [facility] [id number] [facility] 2023-02-02 10:00:00 2023-02-02 10:08:42 Leak Detection Engineer Visit 2, Adc Lab DuaneCharan [facility] 1.840.114 350.1.13.10 4.2.7.2.686 [id number] [facility] 2023-01-27 09:30:00 2023-01-27 09:30:00 Outpatient R CHARAN ZEPEDA [facility] [id number] [facility] 2023-01-27 00:00:00 2023-01-27 00:00:00 Telephone Charan Zepedasmdonna WEBER [facility] 1..840.114 350.1.13.10 4.2.7.2.686 [id number] 080 [id number] [facility] 2023-01-24 16:04:00 2023-01-24 19:28:00 Emergency X TASH JENKINS [facility] ERT [id number] [facility] 2023-01-24 16:04:00 2023-01-24 19:28:00 Emergency Tash Jenkins S [facility] 1..840.114 350.1.13.10 4.2.7.2.686 [id number] 084 [id number] [facility] 2023-01-23 00:00:00 2023-01-23 00:00:00 Telephone Charan Zepedasmdonna [facility] 1..840.114 350.1.13.10 4.2.7.2.686 [id number] 080 [id number] [facility] 2023-01-21 00:00:00 2023-01-21 00:00:00 Clinic Assessment Roro Zepedashola Cruz [facility] 1.840.114 350.1.13.10 4.2.7.2.686 [id number] 053 [id number] [facility] 2023-01-20 09:30:00 2023-01-20 09:30:00 Outpatient R [facility] [id number] [facility] 2023-01-20 00:00:00 2023-01-20 00:00:00 Patient Secure Msg Doctor Unassigned, Weems [facility] 1.20.114 350.1.13.10 4.2.7.2.686 [id number] 037 [id number] [facility] 2023-01-16 00:00:00 2023-01-16 00:00:00 Orders Only Doctor Unassigned, Weems [facility] 1.2840.114 350.1.13.10 4.2.7.2.686 [id number] [facility] 2023-01-14 12:00:00 2023-01-14 12:00:00 Outpatient R CHARAN ZEPEDA [facility] [id number] [facility] 2023-01-14 09:00:00 2023-01-14 09:00:00 Office Visit Charan Zepeda BUILDING 1.0.114 350.1.13.10 4.2.7.2.686 [id number] 080 [id number] [facility] 2023-01-13 09:30:00 2023-01-13 15:38:36 Outpatient R CHARAN ZEPEDA [facility] [id number] [facility] 2023-01-13 09:30:00 2023-01-13 09:45:00 Leak Detection Engineer Visit 2, Adc Lab Charan Zepeda [facility] BUILDING 1.20.114 350.1.13.10 4.2.7.2.686 [id number] [facility] 2023-01-07 08:00:00 2023-01-07 12:25:20 Outpatient R CHARAN ZEPEDA [facility] [id number] [facility] 2023-01-07 08:00:00 2023-01-07 12:25:20 Nurse Visit 3, [facility] Infusion Chair Charan Zepeda [facility] 1.0.114 350.1.13.10 4.2.7.2.686 [id number] 053 [id number] [facility] 2023-01-07 00:00:00 2023-01-07 00:00:00 Case Management Charan [facility] 1.2.840.114 350.1.13.10 4.2.7.2.686 [id number] 080 [id number] [facility] 2023-01-06 09:30:00 2023-01-06 13:01:21 Outpatient R SEANLLUVIA CHARAN [facility] [id number] [facility] 2023-01-06 09:30:00 2023-01-06 09:45:00 Leak Detection Engineer Visit 2, Adc Lab Duane Charanshola Cruz [facility] 1.2.840.114 350.1.13.10 4.2.7.2.686 [id number] [facility] 2023-01-01 00:00:00 2023-01-01 00:00:00 Telephone Charan Zepedasmeen [facility] 1.2.840.114 350.1.13.10 4.2.7.2.686 [id number] 080 [id number] [facility] 2022-12-31 11:30:00 2022-12-31 15:37:56 Outpatient R SEANCHARAN TEIXEIRA [facility] [id number] [facility] 2022-12-31 11:30:00 2022-12-31 15:37:56 Nurse Visit 10, [facility] Infusion Chair Duane Charan Nancy [facility] 1.840.114 350.1.13.10 4.2.7.2.686 [id number] 053 [id number] [facility] 2022-12-30 09:30:00 2022-12-30 15:58:03 Outpatient R CHARAN ZEPEDA [facility] [id number] [facility] 2022-12-30 09:30:00 2022-12-30 09:45:00 Leak Detection Engineer Visit 2, [facility] Lab [facility] BUILDING 1.2.840.114 350.1.13.10 4.2.7.2.686 [id number] 353 [id number] [facility] 2022-12-25 09:40:00 2022-12-25 09:40:00 Outpatient R DUANE CHARAN [facility] [id number] [facility] 2022-12-24 09:30:00 2022-12-24 13:30:38 Nurse Visit 7, [facility] Infusion Chair Duane Charan Mccoysmeen [facility] 1.2.840.114 350.1.13.10 4.2.7.2.686 [id number] 053 [id number] [facility] 2022-12-24 08:40:00 2022-12-24 09:25:07 Outpatient R SEANLLUVIA CHARAN [facility] [id number] [facility] 2022-12-24 08:40:00 2022-12-24 09:25:07 [facility] 1.2.840.114 350.1.13.10 4.2.7.2.686 [id number] 080 [id number] [facility] 2022-12-23 09:45:00 2022-12-23 10:00:00 Leak Detection Engineer Visit 2, Adc Lab Charan Zepedasmeen [facility] BUILDING 1.2.840.114 350.1.13.10 4.2.7.2.686 [id number] [facility] 2022-12-23 09:45:00 2022-12-23 09:45:00 Outpatient R CHARAN ZEPEDA [facility] [id number] [facility] 2022-12-22 09:30:00 2022-12-22 09:30:00 Outpatient R CHARAN ZEPEDA [facility] [id number] [facility] 2022-12-22 00:00:00 2022-12-22 00:00:00 Telephone Charan Zepeda BUILDING 1.2840.114 350.1.13.10 4.2.7.2.686 [id number] 080 [id number] [facility] 2022-12-17 09:30:00 2022-12-17 14:04:43 Outpatient R CHARAN ZEPEDA [facility] [id number] [facility] 2022-12-17 09:30:00 2022-12-17 14:04:43 Nurse Visit 7, [facility] Infusion Chair Charan Zepedasmeen [facility] 1.840.114 350.1.13.10 4.2.7.2.686 [id number] 053 [id number] [facility] 2022-12-17 00:00:00 2022-12-17 00:00:00 Letter (Out) Charan Zepeda [facility] BUILDING 1.2840.114 350.1.13.10 4.2.7.2.686 [id number] 080 [id number] [facility] 2022-12-17 00:00:00 2022-12-17 00:00:00 Case Management Charan Zepeda [facility] 1.2840.114 350.1.13.10 4.2.7.2.686 [id number] 080 [id number] [facility] 2022-12-16 08:30:00 2022-12-16 16:00:53 Outpatient R CHARAN ZEPEDA [facility] [id number] [facility] 2022-12-16 08:30:00 2022-12-16 08:45:00 Leak Detection Engineer Visit 2, Adc Lab Slick Zepedalucretia MccoyNancy [facility] BUILDING 1.2840.114 350.1.13.10 4.2.7.2.686 [id number] [facility] 2022-12-11 14:35:48 2022-12-11 23:59:00 Outpatient R CHARAN ZEPEDA [facility] [id number] [facility] 2022-12-11 00:00:00 2022-12-11 00:00:00 Outpatient R BRENNA EDUARDO [facility] [id number] [facility] 2022-12-11 00:00:00 2022-12-11 00:00:00 Orders Only Doctor Unassigned, We[place] [facility] 1.840.114 350.1.13.10 4.2.7.2.686 [id number] [facility] 2022-12-10 09:30:00 2022-12-10 12:58:21 Outpatient CHARAN MASSEY [facility] [id number] [facility] 2022-12-10 09:30:00 2022-12-10 12:58:21 Nurse Visit 5, [facility] Infusion Chair Charan Zepeda [facility] 1.840.114 350.1.13.10 4.2.7.2.686 [id number] 053 [id number] [facility] 2022-12-10 00:00:00 2022-12-10 00:00:[address] [facility] 1.840.114 350.1.13.10 4.2.7.2.686 [id number] 080 [id number] [facility] 2022-12-09 13:30:00 2022-12-09 13:43:08 Outpatient R CHARAN ZEPEDA [facility] [id number] [facility] 2022-12-09 13:30:00 2022-12-09 13:43:08 Leak Detection Engineer Visit 2, Adc Lab Aziz, [facility] 1.2840.114 350.1.13.10 4.2.7.2.686 [id number] [facility] 2022-12-08 00:00:00 2022-12-08 00:00:00 Outpatient R CHARAN ZEPEDA [facility] [id number] [facility] 2022-12-04 09:30:00 2022-12-04 14:23:32 Nurse Visit 7, [facility] Infusion Chair Charan Zepedasmeen [facility] 1..114 350.1.13.10 4.2.7.2.686 [id number] 053 [id number] [facility] 2022-12-04 09:00:00 2022-12-04 09:27:58 Outpatient R CHARAN ZEPEDA [facility] [id number] [facility] 2022-12-04 09:00:00 2022-12-04 09:27:58 Office Visit Charan Zepeda [facility] 1.84.114 350.1.13.10 4.2.7.2.686 [id number] 080 [id number] [facility] 2022-12-03 08:30:00 2022-12-03 13:20:33 Outpatient R CHARAN ZEPEDA [facility] [id number] [facility] 2022-12-03 08:30:00 2022-12-03 08:45:00 Leak Detection Engineer Visit 2, Adc Lab Charan [facility]asmeen [facility] BUILDING 1.284.114 350.1.13.10 4.2.7.2.686 [id number] [facility] 2022-12-03 00:00:00 2022-12-03 00:00:00 Case Management Charan Zepeda [facility] BUILDING 1.284.114 350.1.13.10 4.2.7.2.686 [id number] 080 [id number] [facility] 2022-12-02 00:00:00 2022-12-02 00:00:00 Charan Dia Nancy [facility] 1.840.114 350.1.13.10 4.2.7.2.686 [id number] 080 [id number] [facility] 2022-12-01 09:30:00 2022-12-01 09:30:00 Outpatient R CHARAN ZEPEDA [facility] [id number] [facility] 2022-11-27 08:14:00 2022-11-27 12:16:00 Outpatient R KEKE BARRAZA [facility] LISA [id number] [facility] 2022-11-27 08:14:00 2022-11-27 12:16:00 Hospital Encounter Keke Barraza [facility] 1.840.114 350.1.13.10 4.2.7.2.686 [id number] [facility] 2022-11-27 09:45:00 2022-11-27 10:45:00 Surgery Keke Barraza [facility] 1.840.114 350.1.13.10 4.2.7.2.686 [id number] 020 [id number] [facility] 2022-11-27 00:00:00 2022-11-27 00:00:00 Orders Only Doctor Unassigned, Weems [facility] 1.84.114 350.1.13.10 4.2.7.2.686 [id number] [facility] 2022-11-25 09:30:00 2022-11-25 09:30:00 Outpatient R CHARAN ZEPEDA [facility] [id number] [facility] 2022-11-21 00:00:00 2022-11-21 00:00:00 Patient Secure Msg Doctor Unassigned, Weems [facility] 1.114 350.1.13.10 4.2.7.2.686 [id number] [facility] 2022-11-18 11:15:00 2022-11-18 11:34:08 Outpatient R CHARAN ZEPEDA [facility] [id number] [facility] 2022-11-18 11:15:00 2022-11-18 11:30:00 Leak Detection Engineer Visit 2, Adc Lab Roro Zepedashola MccoyNancy [facility] 1.114 350.1.13.10 4.2.7.2.686 [id number] [facility] 2022-11-18 00:00:00 2022-11-18 00:00:00 Orders Only Doctor Unassigned, Weems [facility] 1.114 350.1.13.10 4.2.7.2.686 [id number] [facility] 2022-11-17 09:30:00 2022-11-17 09:30:00 [id number] 2022-11-13 09:20:00 2022-11-13 09:29:47 Outpatient R RORO ZEPEDAIHA [facility] [id number] [facility] 2022-11-13 09:20:00 2022-11-13 09:29:47 Office Visit [facility]lluvia [facility] 1.114 350.1.13.10 4.2.7.2.686 [id number] 080 [id number] [facility] 2022-11-13 00:00:00 2022-11-13 00:00:00 Refill Ingrid Ramírez BUILDING 1.2.840.114 350.1.13.10 4.2.7.2.686 [id number] 080 [id number] [facility] 2022-11-12 09:30:00 2022-11-12 10:00:00 Office Visit Lavon Blake [facility] 1.2.840.114 350.1.13.10 4.2.7.2.686 [id number] 071 [id number] [facility] 2022-11-12 09:30:00 2022-11-12 09:30:00 Outpatient Taylor BLAKE, LAVON BLAKE LAVON [facility] [id number] [facility] 2022-11-12 00:00:00 2022-11-12 00:00:00 Orders Only Doctor Unassigned, Weems [facility] 1.2.840.114 350.1.13.10 4.2.7.2.686 [id number] [id number] [facility] 2022-11-05 00:00:00 2022-11-05 00:00:00 Orders Only Doctor Unassigned, Weems [facility] 1.2.840.114 350.1.13.10 4.2.7.2.686 [id number] [facility] 2022-11-04 15:45:00 2022-11-04 16:00:00 Leak Detection Engineer Visit 2, Adc Lab Charan Zepeda [facility] 1.2840.114 350.1.13.10 4.2.7.2.686 [id number] [facility] 2022-11-04 15:45:00 2022-11-04 15:52:36 Outpatient CHARAN MASSEY [facility] [id number] [facility] 2022-11-04 09:30:00 2022-11-04 09:30:00 Outpatient CHARAN MASSEY [facility] [id number] [facility] 2022-11-03 09:30:00 2022-11-03 09:30:00 Outpatient R CHARAN ZEPEDA [facility] [id number] [facility] 2022-11-03 00:00:00 2022-11-03 00:00:00 Telephone Charan Zepedadagoberto [facility] 1.2.840.114 350.1.13.10 4.2.7.2.686 [id number] [facility] 2022-10-29 11:37:49 2022-10-29 23:59:00 Outpatient R KRISTINE NORTON [facility] [id number] [facility] 2022-10-29 11:37:49 2022-10-29 23:59:00 Hospital Encounter Kristine Norton [facility] 1.2.840.114 350.1.13.10 4.2.7.2.686 [id number] [facility] 2022-10-29 11:18:45 2022-10-29 11:36:00 [facility] [place] [address].2.840.114 350.1.13.10 4.2.7.2.686 [id number] [facility] 2022-10-29 00:00:00 2022-10-29 00:00:00 [facility] 1.2.840.114 350.1.13.10 4.2.7.2.686 [id number] [facility] 2022-10-28 09:30:00 2022-10-28 09:30:00 Outpatient CHARAN MASSEY [facility] [id number] [facility] 2022-10-27 09:30:00 2022-10-27 13:07:00 Outpatient CHARAN MASSEY [facility] [id number] [facility] 2022-10-27 09:30:00 2022-10-27 09:45:00 Leak Detection Engineer Visit 2, Adc Lab Charan Zepedasmeen [facility] BUILDING 1.2840.114 350.1.13.10 4.2.7.2.686 [id number] [facility] 2022-10-27 00:00:00 2022-10-27 00:00:00 Case Management Charan Zepeda [facility] 1.2.114 350.1.13.10 4.2.7.2.686 [id number] 053 [id number] [facility] 2022-10-27 00:00:00 2022-10-27 00:00:00 Telephone Yoshi Sales [facility] 1..114 350.1.13.10 4.2.7.2.686 [id number] [id number] [facility] 2022-10-22 10:40:00 2022-10-22 12:05:17 Outpatient R CHARAN ZEPEDA [facility] [id number] [facility] 2022-10-22 10:40:00 2022-10-22 12:05:17 [facility] 1.84.114 350.1.13.10 4.2.7.2.686 [id number] [facility] 2022-10-21 09:30:00 2022-10-21 09:45:00 Leak Detection Engineer Visit 2, [facility] 1.2840.114 350.1.13.10 4.2.7.2.686 [id number] [facility] 2022-10-21 09:30:00 2022-10-21 09:30:00 Outpatient R CHARAN ZEPEDA [facility] [id number] [facility] 2022-10-21 09:00:00 2022-10-21 09:00:00 Outpatient R CHARAN ZEPEDA [facility] [id number] [facility] 2022 09:30:00 2022 14:08:51 Outpatient R RORO ZEPEDAIHA [facility] [id number] [facility] 2022 09:30:00 2022 09:45:00 Leak Detection Engineer Visit 2, Adc Lab Charan Zepeda [facility] PROFESSIO [facility] BUILDING 1.2.840.114 350.1.13.10 4.2.7.2.686 [id number] [facility] 2022 00:00:00 2022 00:00:[address] [facility] 1.2.840.114 350.1.13.10 4.2.7.2.686 [id number] 080 [id number] [facility] 2022 00:00:00 2022 00:00:00 Patient Secure Lavon Torrez [facility] 1.2.840.114 350.1.13.10 4.2.7.2.686 [id number] [id number] [facility] 2022-10-19 10:10:00 2022-10-19 13:38:00 Emergency X SURAJ BACA DONNELL [facility] ERT [id number] [facility] 2022-10-19 10:10:00 2022-10-19 13:38:00 Emergency Suraj Baca [facility] 1.2.840.114 350.1.13.10 4.2.7.2.686 [id number] [facility] 2022-10-19 00:00:00 2022-10-19 00:00:00 Nurse Triage Davis Mueller [facility] 1.2840.114 350.1.13.10 4.2.7.2.686 [id number] [facility] 2022-10-16 00:00:00 2022-10-16 00:00:00 Telephone Rufinajohn [facility] 1.2840.114 350.1.13.10 4.2.7.2.686 [id number] [facility] 2022-10-14 09:00:00 2022-10-14 12:58:16 Outpatient CHARAN MASSEY [facility] [id number] [facility] 2022-10-14 09:00:00 2022-10-14 12:58:16 Nurse Visit 1, [facility] Infusion Chair Charan Zepedasmeen [facility] 1.2840.114 350.1.13.10 4.2.7.2.686 [id number] [facility] 2022-10-13 12:45:00 2022-10-13 13:00:00 Office Visit BimalmarthajohnKristine [facility] 1.2840.114 350.1.13.10 4.2.7.2.686 [id number] [facility] 2022-10-13 09:45:00 2022-10-13 10:00:00 Leak Detection Engineer Visit 2, [facility] 1.2840.114 350.1.13.10 4.2.7.2.686 [id number] [facility] 2022-10-13 09:45:00 2022-10-13 09:45:00 Outpatient R CHARAN ZEPEDA [facility] [id number] [facility] 2022-10-13 00:00:00 2022-10-13 00:00:00 Letter (Out) Kristine Norton [facility] 1.2840.114 350.1.13.10 4.2.7.2.686 [id number] [facility] 2022-10-10 00:00:00 2022-10-10 00:00:00 Orders Only Doctor Unassigned, Weems [facility] 1.2840.114 350.1.13.10 4.2.7.2.686 [id number] [facility] 2022-10-08 14:30:37 2022-10-08 23:59:00 Outpatient LAVON VANN [facility] [id number] [facility] 2022-10-08 14:30:37 2022-10-08 23:59:00 Hospital Encounter Lavon Eric [facility] 1.840.114 350.1.13.10 4.2.7.2.686 [id number] [facility] 2022-10-08 00:00:00 2022-10-08 00:00:00 Orders Only Doctor Unassigned, Weems [facility] 1.2840.114 350.1.13.10 4.2.7.2.686 [id number] [facility] 2022-10-07 09:00:00 2022-10-07 12:30:00 Nurse Visit 5, [facility] Infusion Chair Charan Zepeda [facility] 1.0.114 350.1.13.10 4.2.7.2.686 [id number] [facility] 2022-10-07 09:00:00 2022-10-07 09:00:00 Outpatient CHARAN MASSEY [facility] [id number] [facility] 2022-10-07 00:00:00 2022-10-07 00:00:00 Telephone Lavon [facility] 1.2.840.114 350.1.13.10 4.2.7.2.686 [id number] [facility] 2022-10-06 09:30:00 2022-10-06 09:30:00 Leak Detection Engineer Visit 2, Adc Lab Charan Zepedaeen [facility]ILD[facility] 1.2.840.114 350.1.13.10 4.2.7.2.686 [id number] [facility] 2022-10-06 09:30:00 2022-10-06 09:26:19 Outpatient CHARAN MASSEY [facility] [id number] [facility] 2022-10-06 08:00:00 2022-10-06 08:00:00 Outpatient CHARAN MASSEY [facility] [id number] [facility] 2022-10-06 00:00:00 2022-10-06 00:00:00 Telephone Errol Kristine S [facility] 1.2.840.114 350.1.13.10 4.2.7.2.686 [id number] [facility] 2022-10-03 15:00:00 2022-10-03 15:00:00 Outpatient TATI HAWKINS [facility] [id number] [facility] 2022-10-03 00:00:00 2022-10-03 00:00:00 Case Management Kaylene Bowling [facility] 1..840.114 350.1.13.10 4.2.7.2.686 [id number] [facility] 2022-10-02 09:20:00 2022-10-02 09:20:44 Outpatient RORO MASSEYIHA [facility] [id number] [facility] 2022-10-02 09:20:00 2022-10-02 09:20:44 Office Visit Charan Zepeda BUILDING 1.2.840.114 350.1.13.10 4.2.7.2.686 [id number] [facility] 2022-10-01 00:00:00 2022-10-01 00:00:00 Telephone Charan Zepeda BUILDING 1.2.840.114 350.1.13.10 4.2.7.2.686 [id number] [facility] 2022-10-01 00:00:00 2022-10-01 00:00:00 Telephone Charan Zepeda [facility] 1.2.840.114 350.1.13.10 4.2.7.2.686 [id number] [facility] 2022-09-29 13:00:00 2022-09-29 13:28:13 Outpatient R CHARAN ZEPEDA [facility] [id number] [facility] 2022-09-29 13:00:00 2022-09-29 13:28:13 Leak Detection Engineer Visit 2, Adc Lab Charan Zepedasmeen [facility] 1.2.840.114 350.1.13.10 4.2.7.2.686 [id number] [facility] 2022-09-29 00:00:00 2022-09-29 00:00:00 Telephone Charan Zepeda BUILDING 1.2.840.114 350.1.13.10 4.2.7.2.686 [id number] [facility] 2022-09-24 13:30:00 2022-09-24 13:30:00 Outpatient KRISTINE YEPEZ [facility] [id number] [facility] 2022-09-24 00:00:00 2022-09-24 00:00:00 Case Management Charan Zepeda [facility] 1.2.840.114 350.1.13.10 4.2.7.2.686 [id number] [facility] 2022-09-22 00:00:00 2022-09-22 00:00:00 Patient Secure Msg Doctor Unassigned, Weems [facility] 1.2.840.114 350.1.13.10 4.2.7.2.686 [id number] [facility] 2022-09-18 00:00:00 2022-09-18 00:00:00 Telephone Kristine Norton [facility] 1.2.840.114 350.1.13.10 4.2.7.2.686 [id number] [facility] 2022-09-10 00:00:00 2022-09-10 00:00:00 Patient Secure Msg Doctor Unassigned, Weems [facility] 1.2.840.114 350.1.13.10 4.2.7.2.686 [id number] [facility] 2022-09-09 16:00:00 2022-09-09 16:51:54 Office Visit Kristine Norton [facility] 1.2.840.114 350.1.13.10 4.2.7.2.686 [id number] [facility] 2022-09-09 16:00:00 2022-09-09 16:51:54 Outpatient R KRISTINE NORTON [facility] [id number] [facility] 2022-09-09 00:00:00 2022-09-09 00:00:00 Telephone Kristine Norton [facility] 1.2.840.114 350.1.13.10 4.2.7.2.686 [id number] [facility] 2022-09-04 00:00:00 2022-09-04 00:00:00 Orders Only Doctor Unassigned, Weems [facility] 1.2.840.114 350.1.13.10 4.2.7.2.686 [id number] [facility] 2022-09-03 14:40:00 2022-09-03 15:22:07 Office Visit Charan Zepeda [facility] 1.2840.114 350.1.13.10 4.2.7.2.686 [id number] [facility] 2022-09-03 14:40:00 2022-09-03 15:22:07 Outpatient R CHARAN ZEPEDA [facility] [id number] [facility] 2022-09-02 16:30:00 2022-09-02 16:30:00 Office Visit Kristine Norton [facility] 1.284.114 350.1.13.10 4.2.7.2.686 [id number] [facility] 2022-09-02 16:30:00 2022-09-02 16:28:38 Outpatient R KRISTINE NORTON [facility] [id number] [facility] 2022-08-22 11:00:00 2022-08-22 11:28:21 [id number] 2022-08-22 11:00:00 2022-08-22 11:28:21 Office Visit Katty Holttney [facility]ILD[facility] 1.2.840.114 350.1.13.10 4.2.7.2.686 [id number] [facility] 2022-08-21 00:00:00 2022-08-21 00:00:00 Telephone Kristine Norton Bruce [facility] 1.2.840.114 350.1.13.10 4.2.7.2.686 [id number] [facility] 2022-08-20 11:20:00 2022-08-20 11:20:00 Outpatient R CHARAN ZEPEDA [facility] [id number] [facility] 2022-08-20 00:00:00 2022-08-20 00:00:00 Multidisci plinary Conference Audrey Miramontes [facility] 1.84.114 350.1.13.10 4.2.7.2.686 [id number] [facility] 2022-08-19 16:30:00 2022-08-19 16:56:04 Outpatient R KRISTINE NORTON [facility] [id number] [facility] 2022-08-19 16:30:00 2022-08-19 16:56:04 Office Visit Kristine Norton [facility] 1.2.84.114 350.1.13.10 4.2.7.2.686 [id number] [facility] 2022-08-11 00:00:00 2022-08-11 00:00:00 Case Management Kaylene Bowling [facility] 1.284.114 350.1.13.10 4.2.7.2.686 [id number] [facility] 2022-08-11 00:00:00 2022-08-11 00:00:00 Refill Kaylene Bowling [facility] BUILDING 1.2.840.114 350.1.13.10 4.2.7.2.686 [id number] [facility] 2022-08-07 00:00:00 2022-08-07 00:00:00 Telephone Kristine Norton [facility] 1..840.114 350.1.13.10 4.2.7.2.686 [id number] [facility] 2022-08-07 00:00:00 2022-08-07 00:00:00 Transition of Care Shayy Hernandez 1..840.114 350.1.13.10 4.2.7.2.686 [id number] [facility] 2022-08-06 14:00:00 2022-08-06 14:00:00 Outpatient R CHARAN ZEPEDA [facility] [id number] [facility] 2022-08-05 08:02:00 2022-08-06 09:15:00 Outpatient R ERROL KRISTINE [facility] [id number] [facility] 2022-08-05 08:02:00 2022-08-06 09:15:00 Hospital Encounter Kristine Norton [facility] 1..840.114 350.1.13.10 4.2.7.2.686 [id number] [facility] 2022-08-05 08:02:00 2022-08-06 09:15:00 Outpatient R KRISTINE NORTON [facility] [id number] [facility] 2022-08-06 00:00:00 2022-08-06 00:00:00 Telephone Santos Nortonki [facility] 1..840.114 350.1.13.10 4.2.7.2.686 [id number] [facility] 2022-08-05 09:00:00 2022-08-05 23:59:00 Hospital Encounter Kristine Norton [facility] 1.840.114 350.1.13.10 4.2.7.2.686 [id number] [facility] 2022-08-05 09:00:00 2022-08-05 12:40:00 Surgery Rufinajohn Kristine [facility] 1.840.114 350.1.13.10 4.2.7.2.686 [id number] [facility] 2022-08-01 10:00:00 2022-08-01 10:00:00 Outpatient R SANTOS NORTONKI [facility] [id number] [facility] 2022-07-30 08:50:51 2022-07-30 23:59:[address] [facility] 1.84.114 350.1.13.10 4.2.7.2.686 [id number] [facility] 2022-07-30 14:15:00 2022-07-30 14:15:00 Outpatient R SANTOS NORTONKI [facility] [id number] [facility] 2022-07-30 08:48:02 2022-07-30 08:49:00 [facility] 1.84.114 350.1.13.10 4.2.7.2.686 [id number] [facility] 2022-07-30 08:48:02 2022-07-30 08:49:00 [id number] 2022-07-30 08:30:00 2022-07-30 08:47:[address] [facility]..114 350.1.13.10 4.2.7.2.686 [id number] [facility] 2022-07-09 14:20:00 2022-07-09 15:10:57 Outpatient R CHARAN ZEPEDA [facility] [id number] [facility] 2022-07-09 14:20:00 2022-07-09 15:10:57 Office Visit Charan Zepeda BUILDING 1.2.840.114 350.1.13.10 4.2.7.2.686 [id number] [facility] 2022-07-09 14:20:00 2022-07-09 15:10:57 [id number] 2022-07-09 14:20:00 2022-07-09 14:20:00 [facility] [id number] [facility] 2022-07-08 10:20:00 2022-07-08 11:00:25 Outpatient R [facility] [id number] [facility] 2022-07-08 10:20:00 2022-07-08 11:00:25 [facility] 1.2.840.114 350.1.13.10 4.2.7.2.686 [id number] [facility] 2022-07-07 00:00:00 2022-07-07 00:00:00 Telephone Kristine Norton [facility] 1..840.114 350.1.13.10 4.2.7.2.686 [id number] [facility] 2022-07-03 12:19:18 2022-07-03 23:59:00 Outpatient R KRISTINE NORTON [facility] [id number] [facility] 2022-07-03 12:19:18 2022-07-03 23:59:00 Outpatient R KRISTINE NORTON [facility] [id number] [facility] 2022-07-03 12:19:18 2022-07-03 23:59:00 Outpatient Taylor KRISTINE NORTON [facility] [id number] [facility] 2022-07-03 12:19:18 2022-07-03 23:59:00 Outpatient KRISTINE YEPEZ [facility] [id number] [facility] 2022-07-03 12:00:00 2022-07-03 23:59:00 [facility] Encounter Kristine Norton [facility] 1.2.840.114 350.1.13.10 4.2.7.2.686 [id number] [facility] 2022-07-03 12:19:18 2022-07-03 12:19:18 Outpatient KRISTINE YEPEZ [facility] [id number] [facility] 2022-07-03 00:00:00 2022-07-03 00:00:[address] [facility] 1.2.840.114 350.1.13.10 4.2.7.2.686 [id number] [facility] 2022-07-03 00:00:00 2022-07-03 00:00:[address] [facility] 1.2.840.114 350.1.13.10 4.2.7.2.686 [id number] [facility] 2022-06-30 00:00:00 2022-06-30 00:00:00 Outpatient KRISTINE YEPEZ [facility] [id number] [facility] 2022-06-30 00:00:00 2022-06-30 00:00:00 Outpatient KRISTINE YEPEZ [facility] [id number] [facility] 2022-06-30 00:00:00 2022-06-30 00:00:00 Outpatient KRISTINE YEPEZ [facility] [id number] [facility] 2022-06-30 00:00:00 2022-06-30 00:00:00 Outpatient R RUFINAJOHNKRISTINE [facility] [id number] [facility] 2022-06-30 00:00:00 2022-06-30 00:00:00 Telephone HernestoNolbertoestefani [facility] 1.2.840.114 350.1.13.10 4.2.7.2.686 [id number] [facility] 2022-06-27 00:00:00 2022-06-27 00:00:00 Telephone Kristine Norton [facility] 1.2.840.114 350.1.13.10 4.2.7.2.686 [id number] [facility] 2022-06-27 00:00:00 2022-06-27 00:00:00 Telephone Lavon Eric [facility] 1.2.840.114 350.1.13.10 4.2.7.2.686 [id number] [facility] 2022-06-25 08:11:52 2022-06-25 23:59:[address] En[address] Lavon Eric [facility] 1.2840.114 350.1.13.10 4.2.7.2.686 [id number] [facility] 2022-06-25 08:11:52 2022-06-25 23:59:00 Outpatient R LAVON ERIC [facility] [id number] [facility] 2022-06-25 08:11:52 2022-06-25 23:59:00 Outpatient LAVON VANN [facility] [id number] [facility] 2022-06-25 08:20:00 2022-06-25 10:47:11 Outpatient R CHARAN ZEPEDA [facility] [id number] [facility] 2022-06-25 08:20:00 2022-06-25 10:47:11 Outpatient R CHARAN ZEPEDA [facility] [id number] [facility] 2022-06-25 08:20:00 2022-06-25 10:47:11 Office Visit Charan Zepeda [facility] BUILD[facility] 1..840.114 350.1.13.10 4.2.7.2.686 [id number] [facility] 2022-06-17 14:00:00 2022-06-17 16:23:32 Outpatient R KRISTINE NORTON [facility] [id number] [facility] 2022-06-17 14:00:00 2022-06-17 16:23:32 Telemedici ne Visit Kristine Norton [facility] BUILDING 1..840.114 350.1.13.10 4.2.7.2.686 [id number] [facility] 2022-06-17 14:00:00 2022-06-17 16:23:32 Outpatient R KRISTINE NORTON [facility] [id number] [facility] 2022-06-17 14:00:00 2022-06-17 16:23:32 Outpatient R KRISTINE NORTON [facility] [id number] [facility] 2022-06-17 14:00:00 2022-06-17 16:23:32 Outpatient R KRISTINE NORTON [facility] [id number] [facility] 2022-06-13 00:00:00 2022-06-13 00:00:00 Tati Sanchez [facility] 1..840.114 350.1.13.10 4.2.7.2.686 [id number] [facility] 2022-06-11 00:00:00 2022-06-11 00:00:00 Telephone Kristine Norton [facility]ESSIO [facility] BUILD[facility] 1..840.114 350.1.13.10 4.2.7.2.686 [id number] [facility] 2022-06-11 00:00:00 2022-06-11 00:00:00 Case Management HernestoLavon TIA BUILDING 1.84.114 350.1.13.10 4.2.7.2.686 [id number] [facility] 2022-06-10 08:21:00 2022-06-10 12:51:00 Outpatient R KRISTINE NORTON [facility] [id number] [facility] 2022-06-10 08:21:00 2022-06-10 12:51:00 Hospital Encounter Kristine Norton [facility] 1.840.114 350.1.13.10 4.2.7.2.686 [id number] [facility] 2022-06-10 08:21:00 2022-06-10 12:51:00 Outpatient R KRISTINE NORTON [facility] [id number] [facility] 2022-06-10 09:25:00 2022-06-10 11:45:00 Surgery Kristine Norton [facility] 1.84.114 350.1.13.10 4.2.7.2.686 [id number] [facility] 2022-06-10 00:00:00 2022-06-10 00:00:00 Orders Only Doctor Unassigned, Weems [facility] 1.2840.114 350.1.13.10 4.2.7.2.686 [id number] [facility] 2022-06-09 11:30:00 2022-06-09 11:45:00 Laboratory Only Only, Adc Test Kristine Norton [facility] 1.840.114 350.1.13.10 4.2.7.2.686 [id number] [facility] 2022-06-09 11:30:00 2022-06-09 11:30:00 Outpatient R KRISTINE NORTON [facility] [id number] [facility] 2022-06-03 14:00:00 2022-06-03 14:58:24 Outpatient R KRISTINE NORTON [facility] [id number] [facility] 2022-06-03 14:00:00 2022-06-03 14:58:24 Office Visit Kristine Norton [facility] 1.840.114 350.1.13.10 4.2.7.2.686 [id number] [facility] 2022-06-03 14:00:00 2022-06-03 14:58:24 Outpatient R KRISTINE NORTON [facility] [id number] [facility] 2022-06-03 14:00:00 2022-06-03 14:58:24 Outpatient R KRISTINE NORTON [facility] [id number] [facility] 2022-06-03 14:00:00 2022-06-03 14:58:24 Outpatient R KRISTINE NORTON [facility] [id number] [facility] 2022-06-03 00:00:00 2022-06-03 00:00:00 Prep For Surgery Kristine Norton [facility] BUILDING 1.840.114 350.1.13.10 4.2.7.2.686 [id number] [facility] 2022-06-03 00:00:00 2022-06-03 00:00:00 Orders Only Doctor Unassigned, Weems [facility] 1.2.840.114 350.1.13.10 4.2.7.2.686 [id number] [facility] 2022-05-27 00:00:00 2022-05-27 00:00:00 Orders Only Doctor Unassigned, Weems [facility] 1.2.840.114 350.1.13.10 4.2.7.2.686 [id number] [facility] 2022-05-22 09:10:41 2022-05-22 23:59:[address] [facility] 1.2.840.114 350.1.13.10 4.2.7.2.686 [id number] [facility] 2022-05-22 09:10:00 2022-05-22 09:10:[address] [facility] 1.2.840.114 350.1.13.10 4.2.7.2.686 [id number] [facility] 2022-05-22 09:09:11 2022-05-22 09:09:[address] [facility] 1.2.840.114 350.1.13.10 4.2.7.2.686 [id number] [facility] 2022-05-22 09:09:11 2022-05-22 09:09:11 Outpatient R KRISTINE NORTON [facility] [id number] [facility] 2022-05-22 09:10:21 2022-05-22 09:08:00 Outpatient R KRISTINE NORTON [facility] [id number] [facility] 2022-05-22 09:00:00 2022-05-22 09:08:00 [facility] [facility] 1.2.840.114 350.1.13.10 4.2.7.2.686 [id number] [facility] 2022-05-22 00:00:00 2022-05-22 00:00:00 Outpatient R KRISTINE NORTON [facility] [id number] [facility] 2022-05-22 00:00:00 2022-05-22 00:00:00 Telephone Kristine Norton [facility] 1.84.114 350.1.13.10 4.2.7.2.686 [id number] [facility] 2022-05-19 00:00:00 2022-05-19 00:00:00 Cody Tan [facility] 1.840.114 350.1.13.10 4.2.7.2.686 [id number] [facility] 2022-05-14 07:51:49 2022-05-14 23:59:00 Outpatient R NALINI EVANS [facility] [id number] [facility] 2022-05-14 07:51:49 2022-05-14 23:59:00 Hospital Encounter Nalini Evans [facility] 1.840.114 350.1.13.10 4.2.7.2.686 [id number] [facility] 2022-05-14 07:51:49 2022-05-14 07:51:49 Outpatient R NALINI EVANS [facility] [id number] [facility] 2022-05-14 00:00:00 2022-05-14 00:00:00 Orders Only Doctor Unassigned, Weems [facility] 1.840.114 350.1.13.10 4.2.7.2.686 [id number] [facility] 2022-05-14 00:00:00 2022-05-14 00:00:00 Letter (Out) Doctor Unassigned, Weems [facility] 1.2.840.114 350.1.13.10 4.2.7.2.686 [id number] [facility] 2022-05-13 14:00:00 2022-05-13 14:51:28 Office Visit Kristine Norton [facility] 1..840.114 350.1.13.10 4.2.7.2.686 [id number] [facility] 2022-05-13 14:00:00 2022-05-13 14:51:28 Outpatient R KRISTINE NORTON [facility] [id number] [facility] 2022-05-13 14:00:00 2022-05-13 14:51:28 Outpatient R KRISTINE NORTON [facility] [id number] [facility] 2022-05-13 14:00:00 2022-05-13 14:51:28 Outpatient R KRISTINE NORTON [facility] [id number] [facility] 2022-05-13 14:00:00 2022-05-13 14:51:28 Outpatient R KRISTINE NORTON [facility] [id number] [facility] 2022-05-13 14:00:00 2022-05-13 14:51:28 Outpatient R KRISTINE NORTON [facility] [id number] [facility] 2022-05-13 00:00:00 2022-05-13 00:00:00 Orders Only Doctor Unassigned, [place] [facility] 1.2.840.114 350.1.13.10 4.2.7.2.686 [id number] [facility] 2022-05-12 00:00:00 2022-05-12 00:00:00 Telephone Tati Alexander [facility] 1.2.840.114 350.1.13.10 4.2.7.2.686 [id number] [facility] 2022-05-12 00:00:00 2022-05-12 00:00:00 Telephone Kristine Norton [facility] 1..840.114 350.1.13.10 4.2.7.2.686 [id number] [facility] 2022-05-07 14:15:00 2022-05-07 14:30:00 Leak Detection Engineer Visit Pob, [facility] Main Nalini Evans [facility] 1..840.114 350.1.13.10 4.2.7.2.686 [id number] [facility] 2022-05-07 14:15:00 2022-05-07 14:15:00 Outpatient R NALINI EVANS [facility] [id number] [facility] 2022-05-07 14:15:00 2022-05-07 14:15:00 Outpatient R NALINI EVANS [facility] [id number] [facility] 2022-05-07 14:15:00 2022-05-07 14:15:00 Outpatient R NALINI EVANS [facility] [id number] [facility] 2022-05-07 00:00:00 2022-05-07 00:00:00 Orders Only Doctor Unassigned, [place] [facility] 1.840.114 350.1.13.10 4.2.7.2.686 [id number] [facility] 2022-05-06 12:50:59 2022-05-06 23:59:00 Outpatient R TATI ALEXANDER [facility] [id number] [facility] 2022-05-06 12:50:59 2022-05-06 23:59:00 Outpatient R CATHERINETATI [facility] [id number] [facility] 2022-05-06 12:50:59 2022-05-06 23:59:00 Outpatient R MADONNATATI Boykin [facility] [id number] [facility] 2022-05-06 12:50:59 2022-05-06 23:59:00 Outpatient R TATI ALEXANDER [facility] [id number] [facility] 2022-05-06 12:50:59 2022-05-06 23:59:00 Hospital Encounter Tati Alexander [facility] AT [address]840.114 350.1.13.10 4.2.7.2.686 [id number] [facility] 2022-05-06 12:50:29 2022-05-06 23:59:00 Outpatient R CATHERINE TATI [facility] [id number] [facility] 2022-05-06 12:50:29 2022-05-06 23:59:00 Outpatient R MADONNABEV BoykinIE [facility] [id number] [facility] 2022-05-06 12:50:29 2022-05-06 23:59:00 Hospital Encounter Tati Alexander [facility] AT [address]840.114 350.1.13.10 4.2.7.2.686 [id number] [facility] 2022-04-21 00:00:00 2022-04-21 00:00:00 Telephone Tati Alexander [facility] ..840.114 350.1.13.10 4.2.7.2.686 [id number] [facility] 2022-04-18 13:26:01 2022-04-18 23:59:00 Hospital Encounter Tati Alexander [facility] AT [address]0.114 350.1.13.10 4.2.7.2.686 [id number] [facility] 2022-04-18 13:25:46 2022-04-18 13:25:46 Outpatient R TATI ALEXANDER [facility] [id number] [facility] 2022-04-18 13:25:46 2022-04-18 13:25:46 Outpatient R MADONNABEV BoykinIE [facility] [id number] [facility] 2022-04-18 13:25:46 2022-04-18 13:25:46 Hospital Encounter Tati Alexander [facility] AT [facility] 1.114 350.1.13.10 4.2.7.2.686 [id number] [facility] 2022-04-16 13:30:00 2022-04-16 13:30:00 Outpatient R EJANNINE SOSA [facility] [id number] [facility] 2022-04-09 00:00:00 2022-04-09 00:00:00 Telephone MadonnaTati boykin [facility] 1.114 350.1.13.10 4.2.7.2.686 [id number] [facility] 2022-03-31 00:00:00 2022-03-31 00:00:00 Telephone Madonnalucretia Tati [facility] 1..114 350.1.13.10 4.2.7.2.686 [id number] [facility] 2022-03-31 00:00:00 2022-03-31 00:00:00 Telephone MadonnaTati boykin [facility] 1..114 350.1.13.10 4.2.7.2.686 [id number] [facility] 2022-03-28 13:04:13 2022-03-28 23:59:00 Outpatient R TATI ALEXANDER [facility] [id number] [facility] 2022-03-28 13:00:00 2022-03-28 23:59:00 Hospital Encounter Tati Alexander [facility] 1..840.114 350.1.13.10 4.2.7.2.686 [id number] [facility] 2022-03-27 11:00:00 2022-03-27 11:25:10 Outpatient R MADONNABEV BoykinIE [facility] [id number] [facility] 2022-03-27 11:00:00 2022-03-27 11:15:00 Leak Detection Engineer Visit Lab, Tati Edouard [facility] 1..840.114 350.1.13.10 4.2.7.2.686 [id number] [facility] 2022-03-27 11:00:00 2022-03-27 11:00:00 Outpatient R MADONNATATI Boykin [facility] [id number] [facility] 2022-03-27 00:00:00 2022-03-27 00:00:00 Telephone Catherine Tati [facility] 1..840.114 350.1.13.10 4.2.7.2.686 [id number] [facility] 2022-03-19 10:00:00 2022-03-19 12:04:32 Outpatient R MADONNATATI Boyikn [facility] [id number] [facility] 2022-03-19 10:00:00 2022-03-19 10:30:00 Office Visit Catherine Tati [facility] 1..840.114 350.1.13.10 4.2.7.2.686 [id number] [facility] 2022-03-19 10:00:00 2022-03-19 10:00:00 Outpatient R TATI ALEXANDER [facility] [id number] [facility] 2022-02-05 00:00:00 2022-02-05 00:00:00 Orders Only Doctor Unassigned, [place] [facility] 1.2840.114 350.1.13.10 4.2.7.2.686 [id number] [id number] [facility] 2022-01-15 00:00:00 2022-01-15 00:00:00 Telephone Paul Ortega [facility] 1.840.114 350.1.13.10 4.2.7.2.686 [id number] [facility] 2021-11-13 00:00:00 2021-11-13 00:00:00 Orders Only Doctor Unassigned, [place] [facility] 1.84.114 350.1.13.10 4.2.7.2.686 [id number] [id number] [facility] 2021-11-12 00:00:00 2021-11-12 00:00:00 Telephone Paul Ortega [facility] 1.840.114 350.1.13.10 4.2.7.2.686 [id number] [facility] 2021-11-07 00:00:00 2021-11-07 00:00:00 Telephone Messi [place] [facility] 1.840.114 350.1.13.10 4.2.7.2.686 [id number] [facility] 2021-09-23 14:30:00 2021-09-23 15:04:26 Outpatient R PAUL ORTEGA [facility] [id number] [facility] 2021-09-23 14:26:28 2021-09-23 15:04:26 Office Visit [facility] 1..840.114 350.1.13.10 4.2.7.2.686 [id number] [facility] 2021-09-19 00:00:00 2021-09-19 00:00:00 Telephone [facility] Medical Office Building 1.840.114 350.1.13.10 4.2.7.2.686 [id number] [facility] 2021-09-18 00:00:00 2021-09-18 00:00:00 Orders Only Doctor Unassigned, [place] [facility] 1.840.114 350.1.13.10 4.2.7.2.686 [id number] [id number] [facility] 2021-09-06 00:00:00 2021-09-06 00:00:00 Telephone Messi [place] [facility] Building 1..840.114 350.1.13.10 4.2.7.2.686 [id number] [facility] 2021-09-02 16:00:00 2021-09-02 16:00:00 Outpatient R PAUL ORTEGA [facility] [id number] [facility] 2021-09-02 16:00:00 2021-09-02 16:00:00 Outpatient R PAUL ORTEGA [facility] [id number] [facility] 2021-09-02 14:42:50 2021-09-02 15:05:38 Office Visit [facility] 1..840.114 350.1.13.10 4.2.7.2.686 [id number] [facility] 2021-09-02 00:00:00 2021-09-02 00:00:00 Orders Only Doctor Unassigned, [place] [facility] 1.2840.114 350.1.13.10 4.2.7.2.686 [id number] 009 [id number] [facility] 2021-08-30 00:00:00 2021-08-30 00:00:00 Telephone Paul Ortega [facility] Medical Office Building 1.840.114 350.1.13.10 4.2.7.2.686 [id number] [facility] 2021-08-22 13:15:00 2021-08-22 13:15:00 Outpatient Taylor [place] MESSI [facility] [id number] [facility] 2021-08-22 13:15:00 2021-08-22 13:15:00 Outpatient Taylor [place] MESSI [facility] [id number] [facility] 2021-08-22 09:34:32 2021-08-22 10:07:16 Office Visit Paul Ortega [facility] Medical Office Building 1.840.114 350.1.13.10 4.2.7.2.686 [id number] [facility] 2021-08-22 09:45:00 2021-08-22 09:45:00 [facility] [id number] [facility] 2021-08-21 00:00:00 2021-08-21 00:00:00 Orders Only Doctor Unassigned, [place] [facility] 1.2840.114 350.1.13.10 4.2.7.2.686 [id number] [id number] [facility] 2021-08-06 00:00:00 2021-08-06 00:00:00 Telephone Messi [place] [facility] 1.2.840.114 350.1.13.10 4.2.7.2.686 [id number] [facility] 2021-07-31 13:20:00 2021-07-31 23:59:00 Outpatient R MESSI [place] [facility] [id number] [facility] 2021-07-31 13:20:00 2021-07-31 23:59:00 Outpatient R MESSI [place] [facility] [id number] [facility] 2021-07-31 13:20:00 2021-07-31 23:59:00 Hospital Encounter Messi [place] [facility] 1.2.840.114 350.1.13.10 4.2.7.2.686 [id number] [facility] 2021-07-31 13:20:00 2021-07-31 23:59:00 Outpatient R MESSI [place] [facility] [id number] [facility] 2021-07-31 13:09:07 2021-07-31 14:05:14 Office Visit Messi [place] Paul Ortega [facility] Medical Office Building 1.2.840.114 350.1.13.10 4.2.7.2.686 [id number] [facility] 2021-07-31 13:15:00 2021-07-31 13:15:00 Outpatient R PAUL ORTEGA [facility] [id number] [facility] 2021-07-31 13:15:00 2021-07-31 13:15:00 Outpatient R PAUL ORTEGA [facility] [id number] [facility] 2021-07-31 13:15:00 2021-07-31 13:15:00 Outpatient R PAUL ORTEGA [facility] [id number] [facility] 2021-07-18 00:00:00 2021-07-18 00:00:00 Orders Only Doctor Unassigned, [place] [facility] 1.2.840.114 350.1.13.10 4.2.7.2.686 [id number] [id number] [facility] 2021-07-18 00:00:00 2021-07-18 00:00:00 Orders Only Doctor Unassigned, [place] [facility] 1.2.840.114 350.1.13.10 4.2.7.2.686 [id number] [id number] [facility] 2021-07-15 00:00:00 2021-07-15 00:00:00 Telephone Paul Ortega [facility] [place] 1.2.840.114 350.1.13.10 4.2.7.2.686 [id number] [facility] 2021-07-08 00:00:00 2021-07-08 00:00:00 Telephone Paul Ortega [facility] [place] 1.2.840.114 350.1.13.10 4.2.7.2.686 [id number] [facility] 2021-07-03 13:11:39 2021-07-03 23:59:00 Outpatient PAUL ORTEGA [facility] [id number] [facility] 2021-07-03 13:11:39 2021-07-03 23:59:00 Hospital Encounter Paul Ortega [facility] [place] 1.2.840.114 350.1.13.10 4.2.7.2.686 [id number] [facility] 2021-07-03 13:11:39 2021-07-03 23:59:00 Outpatient PAUL ORTEGA [facility] [id number] [facility] 2021-07-03 12:50:00 2021-07-03 13:42:06 Office Visit Paul Ortega [facility] [place] 1.2840.114 350.1.13.10 4.2.7.2.686 [id number] [facility] 2021-07-03 13:00:00 2021-07-03 13:00:00 Outpatient Taylor [facility] [id number] [facility] 2021-07-03 13:00:00 2021-07-03 13:00:00 Outpatient Taylor [facility] 2001 [id number] [facility] 2021-06-28 00:00:00 2021-06-28 00:00:00 Orders Only Doctor Unassigned, [place] [facility] 1.2840.114 350.1.13.10 4.2.7.2.686 [id number] [id number] [facility] 2021-06-05 13:45:11 2021-06-05 14:00:11 Office Visit Padmini [facility] 1.2840.114 350.1.13.10 4.2.7.2.686 [id number] [facility] 2021-06-05 13:45:00 2021-06-05 13:45:00 Outpatient Taylor [facility] 2001 [id number] [facility] 2021-05-31 00:00:00 2021-05-31 00:00:00 Orders Only Doctor Unassigned, [place] [facility] 1.2840.114 350.1.13.10 4.2.7.2.686 [id number] [id number] [facility] 2021-05-22 13:44:13 2021-05-22 23:59:00 Hospital Encounter Paul Ortega [facility] [place] 1.2840.114 350.1.13.10 4.2.7.2.686 [id number] [facility] 2021-05-22 13:44:13 2021-05-22 23:59:00 Outpatient R ORTEGATORI HOPKINSIG [facility] [id number] [facility] 2021-05-22 13:07:08 2021-05-22 13:43:00 Outpatient R SHANNON PAUL [facility] [id number] [facility] 2021-05-22 13:07:08 2021-05-22 13:43:00 Hospital Encounter Ortega [facility] L [facility] [place] 1.2.840.114 350.1.13.10 4.2.7.2.686 [id number] [facility] 2021-05-22 13:15:00 2021-05-22 13:15:00 Outpatient R MESSI [place] [facility] [id number] [facility] 2021-05-22 12:59:45 2021-05-22 13:14:45 Office Visit Messi [place] [facility] [place] 1.2840.114 350.1.13.10 4.2.7.2.686 [id number] [facility] 2021-05-08 13:00:11 2021-05-08 13:30:42 Office Visit Paul Ortega [facility] [place] 1.2.840.114 350.1.13.10 4.2.7.2.686 [id number] [facility] 2021-05-08 13:15:00 2021-05-08 13:15:00 Outpatient R PAUL ORTEGA [facility] [id number] [facility] 2021-05-08 00:00:00 2021-05-08 00:00:00 Orders Only Doctor Unassigned, [place] [facility] 1.2840.114 350.1.13.10 4.2.7.2.686 [id number] [facility] 2021-04-24 12:52:25 2021-04-24 13:31:40 Office Visit Paul Ortega [facility] [place] 1.2.840.114 350.1.13.10 4.2.7.2.686 [id number] [facility] 2021-04-24 13:00:00 2021-04-24 13:00:00 Outpatient R PAUL ORTEGA [facility] [id number] [facility] 2021-04-17 14:06:01 2021-04-17 23:59:00 Hospital Encounter Paul Ortega [facility] [place] 1.2.840.114 350.1.13.10 4.2.7.2.686 [id number] [facility] 2021-04-17 14:06:01 2021-04-17 23:59:00 Outpatient PAUL ORTEGA [facility] [id number] [facility] 2021-04-17 13:24:29 2021-04-17 14:35:52 Office Visit Paul Ortega [facility] memo Diez 1.2.840.114 350.1.13.10 4.2.7.2.686 [id number] [facility] 2021-04-17 13:15:00 2021-04-17 13:15:00 Outpatient R PAUL ORTEGA [facility] [id number] [facility] Results Test Description Test Time Test Comments Results Result Co mments Source [facility]2025-[facility] 16:30:15* Test Item Value Reference Range Interpretation Comme nts Height (test code = 3231253624) 66 in Weight (test code = 1089587932) 182 lbs Systolic BP (test code = 7637673798) 124 mmHg Diastolic BP (test code = 7598437832) 61 mmHg Heart Rate (test code = 1492212984) 58 bpm LV GLS Endo Peak A2C () (test code = 4759705535) -24.60 % LV GLS Endo Peak A3C () (test code = 6197309966) -26.80 % LV GLS Endo Peak A4C () (test code = 6259191443) -21.70 % LV GLS Endo Peak Avg () (test code = 7198995620) -24.40 % BSA (test code = 1320101584) 1.92 m2 LVOT diameter (test code = 5089545319) 1.88 cm LVOT area (test code = 7605917634) 2.80 cm2 Ao root diam (test code = 9336677254) 3.00 cm Aortic root (test code = 7539528639) 3.0 cm Ao root annulus (test code = 1234906263) 3.0 cm LA size (test code = 3010855113) 3.7 cm TR Peak Grupo (test code = 6939991348) 235.8 cm/s Triscuspid Valve Regurgitation Peak Gradient (test code = 3842958707) 22.4 mmHg LVIDD (test code = 7965888590) 4.20 cm Left Ventricular End Diastolic Volume by Teichholz Method (test code = 9640860) 80.6 mL IVS (test code = 1613030892) 1.16 cm Interventricular Septum Diastolic Thickness by 2D (test code = 8889057) 1.16 cm LVPWD (test code = 5072384304) 1.16 cm PW (test code = 0209901561) 1.16 cm 0.6-1.1 EF(Teich) (test code = 1842145018) 69.20 % LVIDS (test code = 9147892832) 2.60 cm Left Ventricular End Systolic Volume by Teichholz Method (test code = 8913980) 24.8 mL FS (test code = 7545528058) 39 % EF - 2D (test code = 22693446) 69.20 % Pulmonic Regurgitant End Max Velocity (test code = 6887334603) 103.5 cm/s LAV(MOD-sp4) (test code = 5078045209) 60.20 mL MV Peak E Grupo (test code = 5487542218) 66.0 cm/s MV stenosis pressure 1/2 time (test code = 9285925762) 90.8 ms MV Peak A Grupo (test code = 7656139885) 77.0 cm/s E/A ratio (test code = 2029180052) 0.86 ratio E wave decelartion time (test code = 3058871541) 0.31 s MV Prop V (test code = 1965409974) 37.90 cm/s MV E/e' septal (test code = 3058463890) 13.9 cm/s Tapse (test code = 8724369987) 2.17 cm LVOT stroke volume (test code = 0737997006) 71.10 cm3 LVOT peak grupo (test code = 3830030429) 105.3 cm/s LVOT mn grad (test code = 7679493247) 2.5 mmHg AV LVOT peak gradient (test code = 8189498081) 4.4 mmHg LVOT peak VTI (test code = 1897947721) 25.7 cm LV V1 mean (test code = 1419227972) 76.00 cm/s Aortic valve mean velocity (test code = 1903837215) 120.8 cm/s Ao peak grupo (test code = 7176518626) 171.6 cm/s Ao VTI (test code = 3494654416) 41.3 cm AV area by cont VTI (test code = 2326669249) 1.7 cm2 AV area peak grupo (test code = 9286024694) 1.7 cm2 Ao max PG (test code = 2024526826) 11.80 mm[Hg] AV peak gradient (test code = 8337848503) 11.8 mmHg AV valve area (test code = 5088399003) 1.72 cm2 AV mean gradient (test code = 1226372893) 6.3 mmHg GLS (test code = 7421191616) -24 % Radiology Study observation (narrative) (test code = 20191-4) ROBERT (test code = ROBERT) ?Left?Ventricle: Left ventricle size is normal. Normal wall thickness. Normal wall motion. Normal systolic function with a visually estimated EF of 55 - 60%. Global longitudinal strain is normal with a value of -24%. There is impaired relaxation. ?Tricuspid?Valve: Mild transvalvular regurgitation. Right ventricular systolic pressure is 20-25 mmHg. ?RA pressure is 0-5 mmHg. ?Pericardium: Trivial pericardial effusion present. Left VentricleLeft ventricle size is normal. Normal wall thickness. Normal wall motion. Normal systolic function with a visually estimated EF of 55 - 60%. Global longitudinal strain is normal with a value of -24%. There is impaired relaxation.Right VentricleRight ventricle size is normal. Normal systolic function.Left AtriumLeft atrium size is normal.Right AtriumRight atrium size is normal.Mitral ValveMitral valve structure is normal. Trace transvalvular regurgitation.Tricusp id ValveTricuspid valve structure is normal. Mild transvalvular regurgitation. Right ventricular systolic pressure is 20-25 mmHg. RA pressure is 0-5 mmHg.Aortic ValveTricuspid.Pulmon ic ValveValve structure is grossly normal. Mild transvalvular regurgitation.Ascendi ng AortaNormal sized aortic root.PericardiumTrivi al pericardial effusion present.Study DetailsStudy quality was adequate. A complete echocardiogram was performed using 2D, color flow Doppler, spectral Doppler and strain. [facility] with [id number] 21:16:18* Test Item Value Reference Range Interpretation Comme nts WBC (test code = 6690-2) 5.11 4.30-11.10 RBC (test code = 789-8) 4.33 3.93-5.25 HGB (test code = 718-7) 12.9 g/dL 11.6-15.0 HCT (test code = 4544-3) 39.8 % 35.7-45.2 MCV (test code = 787-2) 91.9 fL 80.6-95.5 MCH (test code = 785-6) 29.8 pg 25.9-32.8 MCHC (test code = 786-4) 32.4 g/dL 31.6-35.1 RDW-SD (test code = 42544-4) 49.6 fL 39.0-49.9 RDW-CV (test code = 788-0) 14.7 % 12.0-15.5 PLT (test code = 777-3) 172 166-358 MPV (test code = 24749-6) 11.4 fL 9.5-12.9 NRBC/100 WBC (test code = 6956904497) 0.0 0.0-10.0 NRBC x10^3 (test code = 0936018735) See_Comment [Automated [employer]] The system which generated this result transmitted reference range: 10*3/?L. The reference range was not used to interpret this result as normal/abnormal. SEG % (test code = 19214-3) 38 % 33-76 LYMPH % (test code = 87559-1) 56 % 14-54 H MONO % (test code = 91810-1) 5 % 0-4 H EOS % (test code = 05759-6) 1 % 0-3 ANC (test code = 753-4) 1.94 10*3/uL 1.88-7.09 PLT ESTIMATE (test code = 9317-9) Normal Normal GIANT PLATELETS (test code = 5908-9) Present See_Comment A [Automated [employer]] The system which generated this result transmitted reference range: (none). The reference range was not used to interpret this result as normal/abnormal. Lab Interpretation (test code = 74991-5) [facility]normal [facility] [id number] 20:56:55* Test Item Value Reference Range Interpretation Comme nts TROPONIN I (test code = 4424816172) 0.004 ng/mL <=0.034 ROBERT (test code = ROBERT) [...] of biotin. Lab Interpretation (test code = 37306-0) Normal [facility] (21947)2024-12-31 20:45:32* Test Item Value Reference Range Interpretation Comme nts NA (test code = 0728134249) 141 mmol/L 135-145 K (test code = 8958369126) 3.8 mmol/L 3.5-5.0 CL (test code = 0631192324) 110 mmol/L 98-108 H CO2 TOTAL (test code = 6762127142) 23 mmol/L 23-31 AGAP (test code = 0626259944) 8 2-16 BUN (test code = 4538851056) 14 mg/dL 7-23 GLUCOSE (test code = 0735356536) 109 mg/dL 70-110 CREATININE (test code = 2160-0) 0.79 mg/dL 0.50-1.04 TOTAL BILI (test code = 2320639500) 1.1 mg/dL 0.1-1.1 CALCIUM (test code = 2460037938) 9.1 mg/dL 8.6-10.6 T PROTEIN (test code = 1547797875) 8.3 g/dL 6.3-8.2 H ALBUMIN (test code = 4708728549) 3.9 g/dL 3.5-5.0 ALK PHOS (test code = 4674354668) 117 U/L 34-122 ALTv (test code = 1742-6) 59 U/L 5-35 H AST(SGOT) (test code = 4316096214) 127 U/L 13-40 H eGFR (test code = 59690-7) 81.1 mL/min/1.73m2 CKD-EPI eGFR (2020). Assuming creatinine has been stable day-to-day for at least three months, the eGFR indicates Category G2 (60 - 89 mL/min/1.73 m2) Lab Interpretation (test code = 88643-9) Abnormal [facility] [id number] 22:28:55* Test Item Value Reference Range Interpretation Comme nts WBC (test code = 6690-2) 4.45 4.30-11.10 RBC (test code = 789-8) 4.49 3.93-5.25 HGB (test code = 718-7) 13.0 g/dL 11.6-15.0 HCT (test code = 4544-3) 41.6 % 35.7-45.2 MCV (test code = 787-2) 92.7 fL 80.6-95.5 MCH (test code = 785-6) 29.0 pg 25.9-32.8 MCHC (test code = 786-4) 31.3 g/dL 31.6-35.1 L RDW-SD (test code = 74076-7) 50.2 fL 39.0-49.9 H RDW-CV (test code = 788-0) 14.6 % 12.0-15.5 PLT (test code = 777-3) 209 166-358 MPV (test code = 53078-3) 11.3 fL 9.5-12.9 NRBC/100 WBC (test code = 5668939091) 0.0 0.0-10.0 NRBC x10^3 (test code = 1513715032) See_Comment [Automated [employer] ge] The system which generated this result transmitted reference range: 10*3/?L. The reference range was not used to interpret this result as normal/abnormal. GRAN MAT (NEUT) % (test code = 770-8) 43.8 % IMM GRAN % (test code = 8069820720) 0.20 % LYMPH % (test code = 736-9) 45.2 % MONO % (test code = 5905-5) 8.8 % EOS % (test code = 713-8) 1.6 % BASO % (test code = 706-2) 0.4 % GRAN MAT x10^3(ANC) (test code = 2307464111) 1.95 10*3/uL 1.88-7.09 IMM GRAN x10^3 (test code = 9813271023) 0.00-0.06 LYMPH x10^3 (test code = 731-0) 2.01 10*3/uL 1.32-3.29 MONO x10^3 (test code = 742-7) 0.39 10*3/uL 0.33-0.92 EOS x10^3 (test code = 711-2) 0.07 10*3/uL 0.03-0.39 BASO x10^3 (test code = 704-7) 0.01-0.07 Lab Interpretation (test code = 62997-6) [facility]normal [id number] 22:22:32 FULL RESULT: Examination: CT TRAUMA HEAD [...] degenerativechanges but no fracture or traumatic malalignment. [facility] [id number] 22:22:32FULL RESULT: Examination: CT TRAUMA HEAD WO CONTRAST, CT TRAUMA CERVICAL SPINE WOCONTRAST on 11/02/2024 3:35 PM Clinical Indication: fall Comparison: 01/24/2023 Technique: Noncontrast imaging was obtained through the brain and cervicalspine. Findings: White matter microvascular ischemic changes are re demonstrated inthe hemispheres. There is no hemorrhage or other clearly acute or traumaticintracranial process. With respect to the cervical spine, there are multilevel degenerativechanges but no fracture or traumatic malalignment. [id number] 21:57:29* Test Item Value Reference Range Interpretation Comme nts TROPONIN I (test code = 9196664284) 0.003 ng/mL <=0.034 ROBERT (test code = [...] of biotin. Lab Interpretation (test code = 49420-9) Normal [facility] [facility] METABOLIC PANEL (06017)2024-11-02 21:45:45* Test Item Value Reference Range Interpretation Comme nts NA (test code = 6424037829) 144 mmol/L 135-145 K (test code = 5657591401) 4.0 mmol/L 3.5-5.0 CL (test code = 6342817711) 110 mmol/L 98-108 H CO2 TOTAL (test code = 6773962186) 26 mmol/L 23-31 AGAP (test code = 1159266861) 8 2-16 BUN (test code = 0682347248) 16 mg/dL 7-23 GLUCOSE (test code = 7445367774) 80 mg/dL 70-110 CREATININE (test code = 2160-0) 0.99 mg/dL 0.50-1.04 TOTAL BILI (test code = 3826559087) 0.8 mg/dL 0.1-1.1 CALCIUM (test code = 8467799332) 9.4 mg/dL 8.6-10.6 T PROTEIN (test code = 3639514064) 8.7 g/dL 6.3-8.2 H ALBUMIN (test code = 7554959625) 4.1 g/dL 3.5-5.0 ALK PHOS (test code = 8999791804) 90 U/L 34-122 ALTv (test code = 1742-6) 46 U/L 5-35 H AST(SGOT) (test code = 7517232324) 86 U/L 13-40 H eGFR (test code = 57855-8) 61.9 mL/min/1.73m2 CKD-EPI eGFR (2020). Assuming creatinine has been stable day-to-day for at least three months, the eGFR indicates Category G2 (60 - 89 mL/min/1.73 m2) Lab Interpretation (test code = 27816-0) [facility]normal [facility] 21:45:45* Test Item Value Reference Range Interpretation Comme nts MAGNESIUM (test code = 4995310355) 1.9 mg/dL 1.7-2.4 Lab Interpretation (test cod e = 29177-1) Normal [facility]2024-08-18 17:01:43 HISTORY: Osteopenia. [...] doubles for each 1.5 SD below the mean.[facility] DEREK GUIDED CORE BREAST BIOPSY [id number] 20:14:57 Examination:BI DEREK GUIDED CORE BREAST BIOPSY [...] biopsy site. Recommendation:Pending pathology results - Left I, Savana Parada, DO, personally reviewed the study and agree with the resident's/fellow's report.Savana Jean DO as teaching physician, was present during either the entire procedure and/or during the goode components.[facility] W/O DIFF, WITH [id number] 00:00:00* Test Item Value Reference Range Interpretation Comme nts HEMATOCRIT (test code = 27921-0) 36.4 % See_Comment [Automated messa ge] The system which [...] result as normal/abnormal. MCH (test code = 51956-7) 26.7 PG See_Comment [Automated messa ge] The system which generated this result transmitted reference range: 25.0-33.0 PG. The reference range was not used to interpret this result as normal/abnormal. MCHC (test code = 90722-7) 31.0 G/DL See_Comment [Automated messa ge] The system which generated this result transmitted reference range: 31.0-36.0 G/DL. The reference range was not used to interpret this result as normal/abnormal. MCV (test code = 55547-7) 86.1 fL See_Comment [Automated messa ge] The system which generated this result transmitted reference range: 80.0-99.0 fL. The reference range was not used to interpret this result as normal/abnormal. PLATELET COUNT (test code = 91813-9) 260 K/UL See_Comment [Automated messa ge] The system which generated this result transmitted reference range: 130-400 K/UL. The reference range was not used to interpret this result as normal/abnormal. RBC (test code = 03784-9) 4.23 M/UL See_Comment [Automated messa ge] The system which generated this result transmitted reference range: 3.80-5.40 M/UL. The reference range was not used to interpret this result as normal/abnormal. WBC (test code = 29316-4) 4.8 K/UL See_Comment [Automated [employer] Open[employer]OV] The system which generated this result transmitted reference range: 3.5-11.0 K/UL. The reference range was not used to interpret this result as normal/abnormal. XR WRIST <3 VW [id number] 18:42:58HISTORY: ?Pain. FINDINGS: AP, lateral, oblique views [...] space noted, likely secondary to remote ligamentous injury.[facility] ([facility]E)2024-04-26 21:38:48* Test Item Value Reference Range Interpretation Comme nts Height (test code = 5436385112) 66 in Weight (test code = 1338216879) 180 lbs Systolic BP (test code = 5408421255) 141 mmHg Diastolic BP (test code = 7815262970) 92 mmHg Heart Rate (test code = 4309097758) 62 bpm BSA (test code = 8212246114) 1.91 m2 LV GLS Endo Peak A2C () (test code = 3169529863) -14.60 % LV GLS Endo Peak A3C () (test code = 4352032401) -13.50 % LV GLS Endo Peak A4C () (test code = 8803925151) -15.50 % LV GLS Endo Peak Avg () (test code = 3963860183) -14.50 % LVOT diameter (test code = 2865701795) 1.97 cm LVOT area (test code = 4888903255) 3.00 cm2 Ao root diam (test code = 2877562163) 2.80 cm Aortic root (test code = 0293047929) 2.8 cm Ao root annulus (test code = 2429806164) 2.8 cm LA size (test code = 4390381323) 4.2 cm LVIDD (test code = 8768209882) 4.50 cm Left Ventricular End Diastolic Volume by Teichholz Method (test code = 2300496) 90.8 mL IVS (test code = 9519986150) 1.59 cm Interventricular Septum Diastolic Thickness by 2D (test code = 5584982) 1.59 cm LVPWD (test code = 3112722845) 1.14 cm PW (test code = 6700867395) 1.14 cm 0.6-1.1 EF(Teich) (test code = 5291098761) 62.90 % LVIDS (test code = 6132560293) 3.00 cm Left Ventricular End Systolic Volume by Teichholz Method (test code = 2629743) 33.7 mL FS (test code = 6264994380) 34 % EF - 2D (test code = 50212295) 62.90 % TR Peak Grupo (test code = 6295152925) 272.8 cm/s Triscuspid Valve Regurgitation Peak Gradient (test code = 2091617536) 29.8 mmHg MV Peak E Grupo (test code = 9743109372) 78.4 cm/s MV Peak A Grupo (test code = 4544683902) 89.5 cm/s E/A ratio (test code = 4987683385) 0.88 ratio E wave decelartion time (test code = 2182445404) 0.22 s MR max PG (test code = 8490982735) 95.10 mm[Hg] MR max grupo (test code = 6236512688) 487.70 cm/s Mr max grupo (test code = 6244523035) 487.7 m/s MV Prop V (test code = 8786236055) 37.20 cm/s LAV(MOD-sp4) (test code = 9575759491) 49.00 mL Tapse (test code = 8847153796) 2.30 cm LVOT stroke volume (test code = 0182054083) 64.50 cm3 LVOT peak grupo (test code = 0412892896) 91.7 cm/s LVOT mn grad (test code = 3153966373) 1.8 mmHg AV LVOT peak gradient (test code = 2282338805) 3.4 mmHg LVOT peak VTI (test code = 1496510137) 21.1 cm LV V1 mean (test code = 1364541942) 63.90 cm/s Ao peak grupo (test code = 0237423040) 129.5 cm/s AV area peak grupo (test code = 1813549066) 2.2 cm2 Ao max PG (test code = 6867533186) 6.70 mm[Hg] AV peak gradient (test code = 0580800414) 6.7 mmHg LA Volume Index (BP) (test code = 4412691446) 31.1 mL/m2 LA volume (BP) (test code = 6310227839) 59.6 mL LAV(MOD-sp2) (test code = 2803589619) 54.30 mL Radiology Study observation (narrative) (test code = 62337-7) ROBERT (test code = ROBERT) ?Left?Ventricle: Left [...] color flow Doppler, spectral Doppler and strain. [facility] ([facility]E)2023-09-15 03:06:27* Test Item Value Reference Range Interpretation Comme nts Height (test code = 6204651327) 67 in Weight (test code = 2773356013) 190 lbs Systolic BP (test code = 6751364498) 178 mmHg Diastolic BP (test code = 1312024141) 99 mmHg Heart Rate (test code = 9676725278) 70 bpm LV GLS Endo Peak A2C () (test code = 2662662605) -15.50 % LV GLS Endo Peak A3C () (test code = 2534394965) -14.60 % LV GLS Endo Peak A4C () (test code = 6154469049) -16.80 % LV GLS Endo Peak Avg () (test code = 0313498002) -15.60 % BSA (test code = 4117115319) 1.98 m2 Ao root diam (test code = 1795458785) 2.70 cm Aortic root (test code = 8133953675) 2.7 cm Ao root annulus (test code = 8080394909) 2.7 cm LA size (test code = 9775648132) 4.3 cm LVIDD (test code = 6234285507) 4.30 cm Left Ventricular End Diastolic Volume by Teichholz Method (test code = 9386714) 81.5 mL IVS (test code = 4863479569) 0.83 cm Interventricular Septum Diastolic Thickness by 2D (test code = 2725980) 0.83 cm LVPWD (test code = 9825112068) 0.83 cm PW (test code = 5320253502) 0.83 cm 0.6-1.1 EF(Teich) (test code = 2026564915) 57.10 % LVIDS (test code = 4457325469) 3.00 cm Left Ventricular End Systolic Volume by Teichholz Method (test code = 7749715) 35.0 mL FS (test code = 4866724013) 30 % EF - 2D (test code = 08868612) 57.10 % LVOT diameter (test code = 1930769388) 2.08 cm LVOT area (test code = 7724242421) 3.40 cm2 TR Peak Grupo (test code = 9394509774) 256.7 cm/s Triscuspid Valve Regurgitation Peak Gradient (test code = 4658172226) 26.4 mmHg Pulmonic Regurgitant End Max Velocity (test code = 3904145409) 120.3 cm/s MV Prop V (test code = 1283464366) 82.50 cm/s MV Peak E Grupo (test code = 4582429406) 56.6 cm/s MV Peak A Grupo (test code = 1319028539) 78.1 cm/s E/A ratio (test code = 8662131209) 0.72 ratio E wave decelartion time (test code = 9871275173) 0.21 s LAV(MOD-sp4) (test code = 1421048074) 82.70 mL Aortic valve mean velocity (test code = 9909387508) 92.1 cm/s Ao peak grupo (test code = 9160364356) 132.0 cm/s Ao VTI (test code = 0216449306) 27.3 cm Ao max PG (test code = 5595875444) 7.00 mm[Hg] AV peak gradient (test code = 5728282448) 7.0 mmHg AV mean gradient (test code = 2908279822) 3.7 mmHg LVOT stroke volume (test code = 7549694747) 75.80 cm3 LVOT peak grupo (test code = 3414618056) 95.9 cm/s LVOT mn grad (test code = 3068411824) 2.0 mmHg AV LVOT peak gradient (test code = 1356870287) 3.7 mmHg LVOT peak VTI (test code = 3459284797) 22.3 cm AV area by cont VTI (test code = 7867174695) 2.8 cm2 AV area peak grupo (test code = 1126304961) 2.5 cm2 LV V1 mean (test code = 9662099661) 68.10 cm/s AV valve area (test code = 4822035856) 2.80 cm2 Tapse (test code = 0092064589) 2.14 cm LA Volume Index (BP) (test code = 7775926706) 43.2 mL/m2 LA volume (BP) (test code = 8589223329) 85.5 mL LAV(MOD-sp2) (test code = 6011537731) 79.90 mL Radiology Study observation (narrative) (test code = 99369-9) ROBERT (test code = ROBERT) ?Left?Ventricle: Left [...] apical, parasternal and subcostal views were obtained. [facility]ABORH Confirmation (Lab Only)2022-10-19 17:28:30* Test Item Value Reference Range Interpretation Comme nts ABO & RH (test code = 20) O Positive Performed at [facility] Laboratory [facility] Blood [address] Free: [phone] No. [id number] [facility]Type and Screen - ONCE [id number] 17:25:36* Test Item Value Reference Range Interpretation Comme nts ABO & RH (test code = 20) O Positive Performed at [facility] Blood [address]Toll Free: [phone] No. [id number] IAT (test code = 1185) Negative Performed at [facility] Blood [place] [address]Toll Free: [phone] No. [id number] [facility] CenterLactic Acid Whole [id number] 16:44:29* Test Item Value Reference Range Interpretation Comme nts LACTIC ACID (test code = 9915298996) 1.09 mmol/L 0.50-2.20 Lab Interpretation (test cod e = 69926-4) Normal [facility] CenterFERRITIN [id number] 20:44:43* Test Item Value Reference Range Interpretation Comme nts FERRITIN (test code = 6234222116) 96.8 ng/mL 11.0-264.0 ROBERT (test code = ROBERT) Biotin has been reported to cause a negative bias, interpret results relative to patient's use of biotin. Lab Interpretation (test code = 08357-5) Normal [facility] CenterIRON [id number] 20:20:18* Test Item Value Reference Range Interpretation Comme nts IRON (test code = 8350901462) 115 ug/dL 50-160 TIBC (test code = 2367035190) 367 ug/dL 250-410 % FE SAT (test code = 4785250524) 31 % 20-50 Lab Interpretation (test cod e = 35056-1) Normal [facility] CenterHEPATIC FUNCTION PANEL (80757) (ALB,T.PRO,BILI T,BU/BC,ALT,AST,ALK PHOS)2022-05-07 20:11:20* Test Item Value Reference Range Interpretation Comme nts TOTAL BILI (test code = 5692085691) 0.5 mg/dL 0.1-1.1 BILI UNCON (test code = 2222773135) 0.3 mg/dL 0.1-1.1 BILI CONJ (test code = 5994086785) 0.0 mg/dL 0.0-0.3 T PROTEIN (test code = 5545795483) 7.8 g/dL 6.3-8.2 ALBUMIN (test code = 2234170872) 3.9 g/dL 3.5-5.0 ALK PHOS (test code = 0472197789) 76 U/L 34-122 ALTv (test code = 1742-6) 33 U/L 5-35 AST(SGOT) (test code = 5774023242) 56 U/L 13-40 H Lab Interpretation (test cod e = 71577-0) Abnormal [facility] METABOLIC PANEL (NA, K, CL, CO2, GLUCOSE, BUN, CREATININE, CA)2022-05-07 20:11:00* Test Item Value Reference Range Interpretation Comme nts NA (test code = 3850333022) 142 mmol/L 135-145 K (test code = 6119519243) 3.7 mmol/L 3.5-5.0 CL (test code = 3441470496) 105 mmol/L 98-108 CO2 TOTAL (test code = 6295242864) 31 mmol/L 23-31 AGAP (test code = 4372461846) 2-16 BUN (test code = 2313549144) 13 mg/dL 7-23 GLUCOSE (test code = 6444810221) 61 mg/dL 70-110 L CREATININE (test code = 1718938596) 0.75 mg/dL 0.50-1.04 CALCIUM (test code = 4222241488) 9.4 mg/dL 8.6-10.6 eGFR (test code = 7957178338) mL/min/1.73m2 ROBERT (test code = ROBERT) Association [...] imaging tests). Lab Interpretation (test code = 87142-7) Abnormal [facility] WITH [id number] 19:22:12* Test Item Value Reference Range Interpretation Comme nts WBC (test code = 6690-2) See_Comment [Automated [employer] ge] The system which generated this result transmitted reference range: 4.30 - 11.10 10*3/?L. The reference range was not used to interpret this result as normal/abnormal. RBC (test code = 789-8) See_Comment [Automated [employer] ge] The system which generated this result [...] 32.0 g/dL 31.6-35.1 RDW-SD (test code = 04090-0) 45.5 fL 39.0-49.9 RDW-CV (test code = 788-0) 13.7 % 12.0-15.5 PLT (test code = 777-3) See_Comment [Automated [employer] ge] The system which generated this result transmitted reference range: 166 - 358 10*3/?L. The reference range was not used to interpret this result as normal/abnormal. MPV (test code = 16897-4) 10.3 fL 9.5-12.9 NRBC/100 WBC (test code = 8648763267) See_Comment [Automated [employer] ssage] The system which generated this result transmitted reference range: 0.0 - 10.0 /100 WBCs. The reference range was not used to interpret this result as normal/abnormal. NRBC x10^3 (test code = 6806398158) <0.01 See_Comment [Automated me ssage] The system which generated this result transmitted reference range: 10*3/?L. The reference range was not used to interpret this result as normal/abnormal. GRAN MAT (NEUT) % (test code = 770-8) 45.2 % IMM GRAN % (test code = 1875189041) 0.40 % LYMPH % (test code = 736-9) 44.6 % MONO % (test code = 5905-5) 6.7 % EOS % (test code = 713-8) 2.6 % BASO % (test code = 706-2) 0.5 % GRAN MAT x10^3(ANC) (test code = 5560190969) 2.48 10*3/uL 1.88-7.09 IMM GRAN x10^3 (test code = 3512061419) <0.03 0.00-0.06 LYMPH x10^3 (test code = 731-0) 2.45 10*3/uL 1.32-3.29 MONO x10^3 (test code = 742-7) 0.37 10*3/uL 0.33-0.92 EOS x10^3 (test code = 711-2) 0.14 10*3/uL 0.03-0.39 BASO x10^3 (test code = 704-7) 0.03 10*3/uL 0.01-0.07 [facility] History and Physical Notes Date/Time Note Provider Source 2024-12-31 20:14:34 [facility] Hospitalist Admission H&P Date of Service: 12/31/2024 CHIEF COMPLAINT: Near syncope after using a vape pen with marijuana HISTORY OF PRESENT ILLNESS Chepe Reilly is a 69 year old female who presents with a near syncopal episode. Patient was using a vape pen and started getting lightheaded. She felt faint and she was brought into the emergency room for further evaluation. She states this is not the first time this has happened. She has had multiple prior admissions. She has been following up with bioinformatics engineer and multiple facilities and she was recently diagnosed with atrial fibrillation about a year ago. However, she does not feel like this is was causing her symptoms and she is scheduled to get a loop recorder. Patient's initial workup including labs have been unremarkable. At this time, patient will be admitted for observation. Recent echocardiogram has been reviewed. Carotid Dopplers pending. Patient will be admitted for observation.. PAST MEDICAL HISTORY Past Medical History: Diagnosis Date Age-related osteoporosis without current pathological fracture 11/06/2023 Anxiety Arthritis Atrial fibrillation Back pain CAD (coronary artery disease) Cataract Essential (primary) hypertension Essential hypertension 02/19/2024 Malignant neoplasm of right breast greater than or equal to 2 cm in greatest dimension 06/04/2022 Mixed hyperlipidemia 02/19/2024 Thyroid enlarged 03/19/2022 Type 2 diabetes mellitus without complication 12/21/2017 PAST SURGICAL HISTORY Past Surgical History: Procedure Laterality Date BREAST BIOPSY Left COLONOSCOPY N/A 11/27/2022 Surgeon: Keke Barraza MD; Location: ENDOSCOPY ([facility]) OR LOCATION ESOPHAGOGASTRODUODENOSCOPY N/A 11/27/2022 Surgeon: Keke Barraza MD; Location: ENDOSCOPY ([facility]) OR LOCATION FLUOROSCOPY NAVIGATION-ASSISTED SURGERY ([facility]) Left 06/10/2022 Surgeon: Kristine Norton MD; Location: [facility] OR LOCATION HEMAPORT PLACEMENT Left 06/10/2022 Surgeon: Kristine Norton MD; Location: [facility] OR LOCATION SENTINEL LYMPH NODE MAPPING Right 08/05/2022 Surgeon: Kristine Norton MD; Location: [facility] OR LOCATION SIMPLE MASTECTOMY Right 08/05/2022 Surgeon: Kristine Norton MD; Location: [facility] OR LOCATION SPINE SURGERY TUBAL LIGATION ALLERGIES No Known Allergies MEDICATIONS Current home medication list reviewed: Patient's Medications START taking these medications No medications on file CONTINUE taking these medications which have NOT CHANGED APIXABAN (ELIQUIS) 5 MG TABLET Take 1 tablet by mouth in the morning and 1 tablet in the evening. Indications: prevention of thromboembolism in paroxysmal atrial fibrillation CYCLOBENZAPRINE 5 MG TABLET Take 1 tablet by mouth every 12 (twelve) hours as needed for Muscle Spasms. LETROZOLE 2.5 MG TABLET Take 1 tablet by mouth daily PREGABALIN 200 MG CAPSULE Take 1 capsule by mouth in the morning and 1 capsule at noon and 1 capsule in the evening. START taking Modified Medications as Prescribed No medications on file STOP taking these medications No medications on file FAMILY HISTORY Family History Problem Relation Age of Onset Diabetes Mother Cancer Father cancer-unknown Diabetes Father Diabetes Sister Breast Cancer NoFHx SOCIAL HISTORY Social History Socioeconomic History Marital status: Tobacco Use Smoking status: Every Day Current packs/day: 0.50 Average packs/day: 0.5 packs/day for 30.0 years (15.0 ttl pk-yrs) Types: Cigarettes Smokeless tobacco: Never Vaping Use Vaping status: Never Used Substance and Sexual Activity Alcohol use: Never Drug use: Never Sexual activity: Not Currently Social Determinants of Health Food Insecurity: No Food Insecurity (08/07/2022) Hunger Vital Sign Worried About Running Out of Food in the Last Year: Never true Ran Out of Food in the Last Year: Never true Transportation Needs: No Transportation Needs (08/07/2022) PRAPARE - Transportation Lack of Transportation (Medical): No Lack of Transportation (Non-Medical): No REVIEW OF SYSTEMS 10 systems negative except per HPI PHYSICAL EXAMINATION BP 135/70 | Pulse 72 | Temp 36.7 ?C (98.1 ?F) (Oral) | Resp 15 | Ht 1.676 m (5' 6") | Wt 81.6 kg (180 lb) | SpO2 97% | BMI 29.05 kg/m? General: No acute distress HEENT: Normal oral mucosa, anicteric sclerae, NCAT Cardiovascular: RRR Lungs: Symmetric expansion, clear bilaterally Abdomen: Soft, NTND Musculoskeletal: No synovitis, normal muscle mass Genitourinary: Deferred Skin: No rash, no skin lesions Extremities: No clubbing, no cyanosis, no lower extremity edema Neuro: AAOx3, no focal deficits Psych: Normal affect LABS - reviewed pertinent labs as below: CBC BMP PT/INR WBC x10 3 (/CMM) Date Value 10/14/2007 6.3 WBC (10*3/?L) Date Value 12/31/2024 5.11 NA (mmol/L) Date Value 12/31/2024 141 No results found for: "PT" RBC x10 6 (/CMM) Date Value 10/14/2007 4.55 RBC (10*6/?L) Date Value 12/31/2024 4.33 K (mmol/L) Date Value 12/31/2024 3.8 INR (no units) Date Value 12/26/2024 1.1 PLT x10 3 (/CMM) Date Value 10/14/2007 362 PLT (10*3/?L) Date Value 12/31/2024 172 CALCIUM (mg/dL) Date Value 12/31/2024 9.1 HGB Date Value 12/31/2024 12.9 g/dL 10/14/2007 12.9 G/DL CL (mmol/L) Date Value 12/31/2024 110 (H) aPTT HCT (%) Date Value 12/31/2024 39.8 10/14/2007 40.5 BUN (mg/dL) Date Value 12/31/2024 14 APTT Patient (Seconds) Date Value 12/26/2024 35 CREATININE (mg/dL) Date Value 12/31/2024 0.79 IMAGING - reviewed, pertinent results as below: No results found for this visit on 12/31/24. ASSESSMENT: 1. Near syncope 2. History of atrial fibrillation 3. History of breast cancer 4. History of neuropathy 5. History of cannabis use PLAN: 1. Patient with near syncope; continue with carotid Doppler and echocardiogram and cardiology consultation. Patient scheduled get a loop recorder. Patient will just need observation and probably go home later tomorrow morning 2. History of atrial fibrillation; continue monitoring on telemetry and continue with Eliquis 3. History of breast cancer; patient remission 4. History of neuropathy; continue with Lyrica 5. History of cannabis use; patient uses it to it for appetite and for nausea; DVT prophylaxis: enoxaparin Stress ulcer prophylaxis: pantoprazole Code status: FULL Advanced Care Planning (Z71.89) Above assessment and plan discussed at length with patient, patient expressed full understanding. Questions and concerned addressed. Surrogate decision maker: NO Level of care expected after discharge: HOME Time spent: 3 minutes discussing the advanced care plan Smoking Cessation: (Z71.6) Tobacco user?: NO Patient will require observation [place] [employer] LOC[employer] was verified during stay Jose Murillo MD ICAL CARE RN IM-INTERNAL MEDICINE STAFF [facility] Notes Date/Time Note Provider Source 2025-01-01 13:07:54 Problem: Falls, Risk of Goal: Absence of falls Outcome: Adequate for discharge Problem: Discharge Planning Goal: Adequate for discharge Outcome: Adequate for discharge Problem: Pain Goal: Reduction in pain sensation Outcome: Adequate for discharge Problem: Venous Thromboembolism, (actual or risk of) Goal: Absence of venous thromboembolism (Risk) Outcome: Adequate for discharge Problem: Cardiac Output - Decreased Goal: Absence of signs and symptoms of decreased cardiac output Outcome: Adequate for discharge BETH Huggins RN [facility] 2025-01-01 07:22:07 Problem: Falls, Risk of Goal: Absence of falls 01/01/2025721 by Ashlee Momin RN Outcome: Progressing as expected 01/01/2025720 by Ashlee Momin RN Outcome: Progressing as expected Problem: Discharge Planning Goal: Adequate for discharge 01/01/2025721 by Ashlee Momin RN Outcome: Progressing as expected 01/01/2025720 by Ashlee Momin RN Outcome: Progressing as expected Problem: Pain Goal: Reduction in pain sensation 01/01/2025721 by Ashlee Momin RN Outcome: Progressing as expected 01/01/2025720 by Ashlee Momin RN Outcome: Progressing as expected BETH Momin RN [facility] 2024-12-31 20:47:54 Patient admitted to [facility] for diagnosis of syncope Patient agrees to admission, discussed plan of care with patient and family. Patient is awake, alert, oriented, resp reg unlabored, color appropriate for race, PIV intact No adverse reaction to medications administered while in ED Belongings with patient to unit BETH Schaeffer RN [facility] 2024-12-31 13:58:15 Patient arrived by [facility] for near syncope episode after using a vape pen with THC. Patient is drowsy, but awakens to verbal, oriented x4. BGL 114. BETH Merritt RN [facility] 2024-12-31 13:50:00 Associated Order(s): EKG-12 Lead ROUTINE ONCE Pre-Procedure Diagnose(s): Syncope, unspecified syncope type Post-Procedure Diagnose(s): Syncope, unspecified syncope type [facility] Emergency Department Note Patient Name: Chepe Reilly Date of : 1955 69 year old female Treatment Room: Room/bed info not found Primary Care Physician: Sabina Leone Patient Escorted by: Self [9] Mode of Arrival: EMS - [facility] [43] EMS Treatment Prior to ED Arrival: Travel and Exposure Screening: Symptoms Does patient have any of these symptoms?: (not recorded) Exposure Screening Has patient had contact with someone with a communicable disease in the last month?: (not recorded) Diseases exposed to:: (not recorded) Is Patient ?: (not recorded) Exposure Date: (not recorded) Chief Complaint: Chief Complaint Patient presents with Syncope History of Present Illness: HPI Chepe Reilly is a 69 year old female presenting brought in by EMS after syncopal episode in which she was using a vape pen. Patient did not fall to the ground or hit her head, but rather slumped over. Patient drowsy on arrival but able to answer questions. Patient admits to vape pen and reports feeling tired and lightheaded. Per chart review, patient with PMHx of recurrent syncopal episodes. Patient was supposed to have a loop recorder placed yesterday but missed her appointment. Patient, per chart review, now has an appointment for loop recorder insertion on 02/03/25. Past Medical History/Immunizations: Past Medical History: Diagnosis Date Age-related osteoporosis without current pathological fracture 11/06/2023 Anxiety Arthritis Atrial fibrillation Back pain CAD (coronary artery disease) Cataract Essential (primary) hypertension Essential hypertension 02/19/2024 Malignant neoplasm of right breast greater than or equal to 2 cm in greatest dimension 06/04/2022 Mixed hyperlipidemia 02/19/2024 Thyroid enlarged 03/19/2022 Type 2 diabetes mellitus without complication 12/21/2017 Allergies: No Known Allergies Past Social History: Tobacco Use Every Day; 0.5 packs/day; Smoked an average of 0.5 packs/day for 30.0 years; Types: Cigarettes Smokeless Tobacco: Never used smokeless tobacco. Vaping Use Never used Alcohol Use Never. Drug Use Never. Sexual Activity Not currently sexually active. Past Surgical History: Past Surgical History: Procedure Laterality Date BREAST BIOPSY Left COLONOSCOPY N/A 11/27/2022 Surgeon: Keke Barraza MD; Location: [facility]) OR LOCATION ESOPHAGOGASTRODUODENOSCOPY N/A 11/27/2022 Surgeon: Keke Barraza MD; Location: [facility] ([facility]) OR LOCATION FLUOROSCOPY NAVIGATION-ASSISTED SURGERY (SHX) Left 06/10/2022 Surgeon: Kristine Norton MD; Location: [facility] OR LOCATION HEMAPORT PLACEMENT Left 06/10/2022 Surgeon: Kristine Norton MD; Location: [facility] OR LOCATION SENTINEL LYMPH NODE MAPPING Right 08/05/2022 Surgeon: Kristine Norton MD; Location: [facility] OR LOCATION SIMPLE MASTECTOMY Right 08/05/2022 Surgeon: Kristine Norton MD; Location: [facility] OR LOCATION SPINE SURGERY TUBAL LIGATION Review of Systems: Review of Systems Constitutional: Positive for fatigue. Negative for activity change, appetite change and fever. HENT: Negative for congestion, facial swelling and rhinorrhea. Eyes: Negative for photophobia, discharge, itching and visual disturbance. Respiratory: Negative for apnea, cough, choking, chest tightness, shortness of breath, wheezing and stridor. Cardiovascular: Negative for chest pain, palpitations and leg swelling. Gastrointestinal: Negative for abdominal distention, abdominal pain, anal bleeding, blood in stool, constipation, diarrhea, nausea and vomiting. Genitourinary: Negative for dysuria. Musculoskeletal: Negative for neck pain. Neurological: Positive for dizziness and light-headedness. Negative for tremors, seizures, syncope, facial asymmetry, speech difficulty, weakness, numbness and headaches. Physical Exam: ED Triage Vitals [12/31/24 1356] Weight 81.6 kg (180 lb) Actual or estimated Height 1.676 m (5' 6") BP (!) 89/57 Pulse 69 Resp 15 Temp 36.7 ?C (98.1 ?F) Temp source Oral SpO2 96 % Measured on Room air BP (!) 156/78 | Pulse 68 | Temp 36.7 ?C (98.1 ?F) (Oral) | Resp 11 | Ht 1.676 m (5' 6") | Wt 81.6 kg (180 lb) | SpO2 95% | BMI 29.05 kg/m? Physical Exam Vitals and nursing note reviewed. Constitutional: General: She is not in acute distress. Appearance: She is well-developed. She is not diaphoretic. HENT: Head: Normocephalic and atraumatic. Eyes: General: No scleral icterus. Right eye: No discharge. Left eye: No discharge. Conjunctiva/sclera: Conjunctivae normal. Cardiovascular: Rate and Rhythm: Normal rate and regular rhythm. Heart sounds: Normal heart sounds. No murmur heard. No friction rub. No gallop. Pulmonary: Effort: Pulmonary effort is normal. No respiratory distress. Breath sounds: Normal breath sounds. No wheezing. Chest: Chest wall: No tenderness. Abdominal: General: There is no distension. Palpations: Abdomen is soft. There is no mass. Tenderness: There is no abdominal tenderness. There is no guarding or rebound. Musculoskeletal: Cervical back: Neck supple. Skin: General: Skin is warm and dry. Neurological: Mental Status: She is alert and oriented to person, place, and time. Cranial Nerves: No cranial nerve deficit. Coordination: Coordination normal. Psychiatric: Behavior: Behavior normal. Radiology: No orders to display Lab Results: Lab Results CBC WITH DIFF - Abnormal Result Value Ref Range WBC 5.11 4.30 - 11.10 10*3/?L RBC 4.33 3.93 - 5.25 10*6/?L HGB 12.9 11.6 - 15.0 g/dL HCT 39.8 35.7 - 45.2 % MCV 91.9 80.6 - 95.5 fL MCH 29.8 25.9 - 32.8 pg MCHC 32.4 31.6 - 35.1 g/dL RDW-SD 49.6 39.0 - 49.9 fL RDW-CV 14.7 12.0 - 15.5 % PLT 172 166 - 358 10*3/?L MPV 11.4 9.5 - 12.9 fL NRBC/100 WBC 0.0 0.0 - 10.0 /100 WBCs NRBC x10 3 <0.01 10*3/?L SEG % 38 33 - 76 % LYMPH % 56 (*) 14 - 54 % MONO % 5 (*) 0 - 4 % EOS % 1 0 - 3 % ANC 1.94 1.88 - 7.09 10*3/uL PLT ESTIMATE Normal Normal GIANT PLATELETS Present (*) (none) COMP. METABOLIC PANEL (86586) - Abnormal NA 141 135 - 145 mmol/L K 3.8 3.5 - 5.0 mmol/L CL 110 (*) 98 - 108 mmol/L CO2 TOTAL 23 23 - 31 mmol/L AGAP 8 2 - 16 BUN 14 7 - 23 mg/dL GLUCOSE 109 70 - 110 mg/dL CREATININE 0.79 0.50 - 1.04 mg/dL TOTAL BILI 1.1 0.1 - 1.1 mg/dL CALCIUM 9.1 8.6 - 10.6 mg/dL T PROTEIN 8.3 (*) 6.3 - 8.2 g/dL ALBUMIN 3.9 3.5 - 5.0 g/dL ALK PHOS 117 34 - 122 U/L ALTv 59 (*) 5 - 35 U/L AST(SGOT) 127 (*) 13 - 40 U/L eGFR 81.1 mL/min/1.73m2 URINALYSIS - Abnormal APPEARANCE Clear Clear COLOR Yellow Yellow PH 5.0 4.8 - 8.0 SP GRAVITY 1.017 1.003 - 1.030 GLU U QUAL Normal Normal BLOOD Negative Negative KETONES Negative Negative PROTEIN Negative Negative UROBILIN 4.0 mg/dL (*) Normal BILIRUBIN Negative Negative NITRITE Negative Negative LEUK ALESSANDRO Negative Negative RBC/HPF 2 0 - 3 HPF WBC/HPF 2 0 - 5 HPF BACTERIA Few (*) Negative MUCOUS Slight (*) Negative LPF SQ EPITH 4 HPF HYAL CAST 9 (*) <=2 LPF URINE DRUG (IMMUNOASSAY) - COMPREHENSIVE DRUG SCREEN - Abnormal AMPHET Negative Negative GERI U Negative Negative BENZO U Negative Negative Cocaine Metabolite Negative Negative METHADONE Negative Negative OPIATES Negative Negative PCP Negative Negative THC Presumptive Positive (*) Negative TROPONIN I - Normal TROPONIN I 0.004 <=0.034 ng/mL FENTANYL (IMMUNOASSAY) - Normal FENTANYL Negative Negative EKG: If EKG completed, see Procedure Note. Orders and Treatments: Orders Placed This Encounter Procedures Cbc with Diff Comp. Metabolic Panel (52929) Troponin I Urinalysis Urine Drug (Immunoassay) - Comprehensive Drug Screen Fentanyl (Immunoassay) Orders Placed This Encounter Medications NaCl 0.9% (NS) bolus infusion 1,000 mL First Provider Eval: ED Events Date/Time Event User Comments 12/31/24 1354 Medical Screening Begins DAVID RAM MD -- 12/31/24 1354 First Provider Evaluation DAVID RAM MD -- ED COURSE Diagnosis/Impression as of 12/31/24 1539 Syncope, unspecified syncope type Procedures: EKG-12 Lead ROUTINE ONCE Date/Time: 12/31/2024 4:38 PM Performed by: David Ram MD Authorized by: David Ram MD ECG interpreted by ED Physician in the absence of a bioinformatics engineer: yes Previous ECG: Previous ECG: Compared to current Rate: ECG rate: 70 ECG rate assessment: normal Rhythm: Rhythm: sinus rhythm QRS: QRS axis: Normal QRS intervals: Normal QRS conduction: normal ST segments: ST segments: Normal T waves: T waves: normal Other findings: Other findings: LAE and prolonged qTc interval MDM: Medical Decision Making Chepe Reilly is a 69 year-old female presenting following syncopal episode while sitting after using a vape pen. Patient's labs reviewed, CBC, CMP grossly unremarkable. UDS with positive THC, troponin negative. As above patient has appointment scheduled for a loop recorder insertion on 02/03/25 and missed her appointment yesterday. On reassessment, patient still feeling lightheaded. Got patient up to walk and she started feeling lightheaded and as if she were going to pass out again. On EKG QTc prolonged in comparison with prior EKG. Plan for admission for further management. Patient discussed with admitting hospitalist and accepted for admission Problems Addressed: Syncope, unspecified syncope type: acute illness or injury Amount and/or Complexity of Data Reviewed Labs: ordered. Risk Prescription drug management. Flowsheet Documentation: Scoring Tools: No data recorded Disposition/Condition: ED Disposition ED Disposition Admit - Observation Condition -- Comment Treatment Team: [facility] [[id number]] Discharge Medications: Patient's Medications START taking these medications No medications on file CONTINUE taking these medications which have NOT CHANGED APIXABAN (ELIQUIS) 5 MG TABLET Take 1 tablet by mouth in the morning and 1 tablet in the evening. Indications: prevention of thromboembolism in paroxysmal atrial fibrillation CYCLOBENZAPRINE 5 MG TABLET Take 1 tablet by mouth every 12 (twelve) hours as needed for Muscle Spasms. LETROZOLE 2.5 MG TABLET Take 1 tablet by mouth daily PREGABALIN 200 MG CAPSULE Take 1 capsule by mouth in the morning and 1 capsule at noon and 1 capsule in the evening. START taking Modified Medications as Prescribed No medications on file STOP taking these medications No medications on file Follow-up: Electronically signed by: David Ram MD 12/31/241842 [facility]ICIAN STA[facility] 2024-12-31 13:50:00 AdmissionCare Guideline: Syncope, Observation Based on the indications selected for the patient, the bed status of Observation was determined to be MET The following indications were selected as present at the time of evaluation of the patient: - Observation Care Admission Criteria - Observation care is indicated for 1 or more of the following: - Clinician s judgment that the etiology of syncope is likely cardiac (based on history, examination, and summation of findings) AdmissionCare documentation entered by: David Ram [facility], 28th edition, Copyright ? 2023 [facility] All Rights Reserved. [id number] ICAL CARE RN [facility] 2024-12-26 13:00:00 Images from the original note were not included. Venipuncture collection performed by clean technique on the left anticubitus. Total of 1 attempts were made. Slight pressure and a bandage/dressing were applied to the site(s). The patient experienced no complications. The following specimens were processed according to instructions and sent to [facility] laboratories per lab order on 12/26/2024 : LT BLUE 1 SST 1 RED LAV 1 PPT DK GREEN (LiHep) DK GREEN (SodH) HENLEY DK BLUE (K2) DK BLUE (S) ACD Blood Culture NIPT/NTD [facility] 2024-12-12 14:09:26 Lab orders in. [facility] 2024-12-12 09:46:46 Called patient to schedule Loop Recorder Insertion with Dr. Wayne. Patient agreed to have procedure on 12/30/24 - Labs 12/26/24. Nurse will contact patient for arrival time and instruction. [facility] Joy Henry [facility] 2024-12-09 13:28:09 Witnessed Pregabalin 100 mg, 39 capsules disposed using [employer] medication deactivation packets by David Calderon RN per direction of [facility] ADC pharmacist. ASHLY TRINH RN 12/09/2024 1:29 PM ICAL CARE RN Ashly Trinh RN [facility] 2024-12-09 13:25:55 Medication was destroyed using the [employer] medication deactivation packets. Total 39 100 mg capsules destroyed. Witnessed by Ashly Trinh. David Calderon RN 12/09/2024 1:26 PM ICAL CARE RN David Calderon RN [facility] 2024-12-09 09:05:08 Called patient and spoke with her about her Lyrica that was left in clinic. Patient was actually in clinic yesterday and did not pick it up. Patient states she does not have transportation and would have to take an uber to the clinic. She does not know when she would be able to come get her medication. Patient asked if we could dispose of her medication, she states she has plenty of this medication and does not need. Called [facility] hospital pharmacy for advice. The pharmacy advised that the medication could disposed of using the [employer] drug deactivation system. Returned call to patient to notify that we would be destroying her prescription since she is unable to come belt picker from the clinic. Patient was in agreeance and verbalized understanding. David Calderon RN 12/09/2024 9:08 AM ICAL CARE RN David Calderon RN [facility] 2024-12-02 15:15:00 Images from the original note were not included. Venipuncture collection performed by clean technique on the left anticubitus. Total of 1 attempts were made. Slight pressure and a bandage/dressing were applied to the site(s). The patient experienced no complications. The following specimens were processed according to instructions and sent to [facility] laboratories per lab order on 12/02/2024 : LT BLUE SST 2 LT GREEN RED LAV PPT DK GREEN (LiHep) 1 DK GREEN (SodH) HENLEY DK BLUE (K2) DK BLUE (S) ACD Blood Culture NIPT/NTD [facility] 2024-11-28 09:24:34 Attempted to contact pt again regarding medication left in office. LVM ICAL CARE RN Madonna Hutchins RN [facility] 2024-11-25 15:52:50 Patient left pregabalin 100 mg in clinic at last office visit. Attempted to contact patient to belt picker medication with no answer. Voicemail left at this time and instructed patient to return call to clinic. Medication locked in Cardio Med room until patient returns call for belt picker. ICAL CARE RN Cari Tate RN [facility] 2024-11-16 16:09:17 Pre Op form reviewed and completed by Dr. Pavon. Faxed back with attached visit notes and EKG. ICAL CARE RN [facility] 2024-11-15 16:07:16 Received a clearance request from [facility] for EGD/Colonoscopy. KELLY 02/19/[address] Gutierrez NOV 11/16/[address] Pavon EKG 11/02/2024 ECHO 04/26/2024 STRESS NA Anticoagulation: takes Eliquis ICAL CARE RN David Calderon RN [facility] 2024-11-08 14:09:00 Regarding: Patient fainting ----- Message from Patient Grounds Crew Supervisor sent at 11/08/2024 2:09 PM CRITICAL CARE RN ----- Chepe Reilly is a 69 year old female. dandre 69 YRO F Pt has been blacking out, faintin BETH Paniagua RN [facility] 2024-11-08 14:09:00 Adult Triage Assessment Last Clinic Visit: 11/02/24- ER- syncope Primary Symptom: "Passing out, 6 day ago last time" Onset / Duration: 1 week and a half ago, 5-6 months ago "Been going on for a while" Location / Description: head, lightheaded Pain / Severity: 5/10 chronic pain back Associated Symptoms: Headaches Fever / Method: Denies Hydration: About 2 bottles of water, eating ok. Urinating a lot Treatment so far: Pregabalin, Cancer med Effect on ADL's: Some LMP: N/A Pre-existing condition / Immunocompromised: Breast CA, polyneuropathy, Afib, HTN, anxiety, osteoporosis, tobacco use, high risk for falls Chepe Reilly is a 69 year old female calling to get a neurology appointment. She says that she "Passed out" at the doctor's office last week and when they discharged her, they recommended she follow up with a neurologist and business analyst ecommerce. Reports that she has messed up her car because she "Got woozy while driving" and she still feels lightheaded now. When asking what meds she has taken for this she states, "I'm not taking all that medicine! There is 8-9 bottles up there, and I just take my Pregabalin and my cancer medicine." Recommendations and care advice made per protocol. Callback trigger also given. Patient reports that she is currently waiting on the medical cab to take her to the PCP appointment and she will get the neurology referral from her. RN advised if there was any changes to call 911. No additional questions at this time. Angelica KOWALSKI, RN Reason for Disposition [1] Age > 50 years AND [2] now alert and feels fine Protocols used: [id number] [facility] 2024-11-02 14:59:55 Syncopal fall yesterday at pain management doctors office. Here today for headache and neck pain. Vitally stable, ambulatory. HX: breast CA in remission, chronic back pain. ICAL CARE RN Janet Lantigua RN [facility] 2024-11-02 14:38:00 Associated Order(s): EKG-12 Lead ROUTINE ONCE Pre-Procedure Diagnose(s): Syncope, unspecified syncope type Post-Procedure Diagnose(s): Syncope, unspecified syncope type [facility] Emergency Department Note Patient Name: Chepe Reilly Date of : 1955 69 year old female Treatment Room: Room/bed info not found Primary Care Physician: Sabina Leone Patient Escorted by: Self [9] Mode of Arrival: Personal means [1] EMS Treatment Prior to ED Arrival: Travel and Exposure Screening: Symptoms Does patient have any of these symptoms?: (not recorded) Exposure Screening Has patient had contact with someone with a communicable disease in the last month?: (not recorded) Diseases exposed to:: (not recorded) Is Patient ?: (not recorded) Exposure Date: (not recorded) Chief Complaint: Chief Complaint Patient presents with Fall History of Present Illness: The patient presents from home for evaluation status post a syncopal episode that occurred yesterday around 3:30 PM while at her pain management doctor's office. She reports she stood up and started to feel lightheaded and then the next thing she knows she was on the ground. She reports family is able to help her up and she later left the office. She was not seen by doctor or the hospital yesterday. She complains of headache and neck pain that is worse from her baseline. She took a Tylenol around noon today. No chest pain or pressure. No shortness of breath. No nausea or vomiting. She takes pregabalin for history of neuropathy. She is not on blood thinners. She did eat today. Here for evaluation. Past Medical History/Immunizations: Past Medical History: Diagnosis Date Age-related osteoporosis without current pathological fracture 11/06/2023 Anxiety Arthritis Atrial fibrillation Back pain CAD (coronary artery disease) Cataract Essential (primary) hypertension Essential hypertension 02/19/2024 Malignant neoplasm of right breast greater than or equal to 2 cm in greatest dimension 06/04/2022 Mixed hyperlipidemia 02/19/2024 Thyroid enlarged 03/19/2022 Type 2 diabetes mellitus without complication 12/21/2017 Tetanus received in last 5 years: Unknown Allergies: No Known Allergies Past Social History: Tobacco Use Every Day; 0.5 packs/day; Smoked an average of 0.5 packs/day for 30.0 years; Types: Cigarettes Smokeless Tobacco: Never used smokeless tobacco. Vaping Use Never used Alcohol Use Never. Drug Use Never. Sexual Activity Not currently sexually active. Past Surgical History: Past Surgical History: Procedure Laterality Date BREAST BIOPSY Left COLONOSCOPY N/A 11/27/2022 Surgeon: Keke Barraza MD; Location: [facility] ([facility]) OR LOCATION ESOPHAGOGASTRODUODENOSCOPY N/A 11/27/2022 Surgeon: Keke Barraza MD; Location: [facility]OS[facility] ([facility]) OR LOCATION FLUOROSCOPY NAVIGATION-ASSISTED SURGERY (SHX) Left 06/10/2022 Surgeon: Kristine Norton MD; Location: [facility] OR LOCATION HEMAPORT PLACEMENT Left 06/10/2022 Surgeon: Kristine Norton MD; Location: [facility] OR LOCATION SENTINEL LYMPH NODE MAPPING Right 08/05/2022 Surgeon: Kristine Norton MD; Location: [facility] OR LOCATION SIMPLE MASTECTOMY Right 08/05/2022 Surgeon: Kristine Norton MD; Location: [facility] OR LOCATION SPINE SURGERY TUBAL LIGATION Review of Systems: Review of Systems Constitutional: Negative for chills and fever. Respiratory: Negative for cough and shortness of breath. Cardiovascular: Negative for chest pain. Gastrointestinal: Negative for abdominal pain and vomiting. Genitourinary: Negative for dysuria. Musculoskeletal: Positive for neck pain. Negative for arthralgias and neck stiffness. Skin: Negative for wound. Neurological: Positive for syncope and headaches. Psychiatric/Behavioral: Negative for agitation. Endocrine: Negative for goiter. Physical Exam: ED Triage Vitals [11/02/24 1503] Weight 77.1 kg (170 lb) Actual or estimated Height 1.702 m (5' 7") BP 115/78 Pulse 56 Resp 19 Temp 36.9 ?C (98.4 ?F) Temp source Oral SpO2 100 % Measured on Room air Physical Exam Vitals and nursing note reviewed. Constitutional: Appearance: Normal appearance. She is normal weight. HENT: Head: Normocephalic and atraumatic. Mouth/Throat: Mouth: Mucous membranes are dry. Neck: Comments: No vertebral body tenderness to her cervical spine. Cardiovascular: Rate and Rhythm: Normal rate and regular rhythm. Pulses: Normal pulses. Pulmonary: Effort: Pulmonary effort is normal. No respiratory distress. Breath sounds: No stridor. No wheezing or rhonchi. Abdominal: General: There is no distension. Palpations: Abdomen is soft. There is no mass. Tenderness: There is no abdominal tenderness. There is no guarding. Hernia: No hernia is present. Musculoskeletal: General: Normal range of motion. Cervical back: Normal range of motion and neck supple. No tenderness. Skin: General: Skin is warm and dry. Neurological: General: No focal deficit present. Mental Status: She is alert and oriented to person, place, and time. Radiology: CT TRAUMA HEAD WO CONTRAST Final Result FULL RESULT: Examination: CT TRAUMA HEAD WO CONTRAST, CT TRAUMA CERVICAL SPINE WO CONTRAST on 11/02/2024 3:35 PM Clinical Indication: fall Comparison: 01/24/2023 Technique: Noncontrast imaging was obtained through the brain and cervical spine. Findings: White matter microvascular ischemic changes are redemonstrated in the hemispheres. There is no hemorrhage or other clearly acute or traumatic intracranial process. With respect to the cervical spine, there are multilevel degenerative changes but no fracture or traumatic malalignment. IMPRESSION No traumatic injury. CT TRAUMA CERVICAL SPINE WO CONTRAST Final Result FULL RESULT: Examination: CT TRAUMA HEAD WO CONTRAST, CT TRAUMA CERVICAL SPINE WO CONTRAST on 11/02/2024 3:35 PM Clinical Indication: fall Comparison: 01/24/2023 Technique: Noncontrast imaging was obtained through the brain and cervical spine. Findings: White matter microvascular ischemic changes are redemonstrated in the hemispheres. There is no hemorrhage or other clearly acute or traumatic intracranial process. With respect to the cervical spine, there are multilevel degenerative changes but no fracture or traumatic malalignment. IMPRESSION No traumatic injury. Lab Results: Lab Results CBC WITH DIFF - Abnormal Result Value Ref Range WBC 4.45 4.30 - 11.10 10*3/?L RBC 4.49 3.93 - 5.25 10*6/?L HGB 13.0 11.6 - 15.0 g/dL HCT 41.6 35.7 - 45.2 % MCV 92.7 80.6 - 95.5 fL MCH 29.0 25.9 - 32.8 pg MCHC 31.3 (*) 31.6 - 35.1 g/dL RDW-SD 50.2 (*) 39.0 - 49.9 fL RDW-CV 14.6 12.0 - 15.5 % PLT 209 166 - 358 10*3/?L MPV 11.3 9.5 - 12.9 fL NRBC/100 WBC 0.0 0.0 - 10.0 /100 WBCs NRBC x10 3 <0.01 10*3/?L GRAN MAT (NEUT) % 43.8 % IMM GRAN % 0.20 % LYMPH % 45.2 % MONO % 8.8 % EOS % 1.6 % BASO % 0.4 % GRAN MAT x10 3 (ANC) 1.95 1.88 - 7.09 10*3/uL IMM GRAN x10 3 <0.03 0.00 - 0.06 10*3/uL LYMPH x10 3 2.01 1.32 - 3.29 10*3/uL MONO x10 3 0.39 0.33 - 0.92 10*3/uL EOS x10 3 0.07 0.03 - 0.39 10*3/uL BASO x10 3 <0.03 0.01 - 0.07 10*3/uL COMP. METABOLIC PANEL (11573) - Abnormal NA 144 135 - 145 mmol/L K 4.0 3.5 - 5.0 mmol/L CL 110 (*) 98 - 108 mmol/L CO2 TOTAL 26 23 - 31 mmol/L AGAP 8 2 - 16 BUN 16 7 - 23 mg/dL GLUCOSE 80 70 - 110 mg/dL CREATININE 0.99 0.50 - 1.04 mg/dL TOTAL BILI 0.8 0.1 - 1.1 mg/dL CALCIUM 9.4 8.6 - 10.6 mg/dL T PROTEIN 8.7 (*) 6.3 - 8.2 g/dL ALBUMIN 4.1 3.5 - 5.0 g/dL ALK PHOS 90 34 - 122 U/L ALTv 46 (*) 5 - 35 U/L AST(SGOT) 86 (*) 13 - 40 U/L eGFR 61.9 mL/min/1.73m2 TROPONIN I - Normal TROPONIN I 0.003 <=0.034 ng/mL MAGNESIUM - Normal MAGNESIUM 1.9 1.7 - 2.4 mg/dL EKG: If EKG completed, see Procedure Note. Orders and Treatments: Orders Placed This Encounter Procedures CT TRAUMA HEAD WO CONTRAST CT TRAUMA CERVICAL SPINE WO CONTRAST CBC WITH DIFF COMP. METABOLIC PANEL (40334) TROPONIN I Magnesium Orders Placed This Encounter Medications ibuprofen (IBU) tablet 600 mg First Provider Eval: ED Events Date/Time Event User Comments 11/02/241455 Medical Screening Begins RAQUEL WILKS DO -- 11/02/24 145 First Provider Evaluation RAQUEL WILKS DO -- ED COURSE Diagnosis/Impression as of 11/02/24 1643 Syncope, unspecified syncope type Procedures: EKG-12 Lead ROUTINE ONCE Date/Time: 11/02/2024 3:56 PM Performed by: Raquel Wilks DO Authorized by: Raquel Wilks DO ECG interpreted by ED Physician in the absence of a bioinformatics engineer: yes Interpretation: Interpretation: normal Rate: ECG rate: 47 ECG rate assessment: bradycardic Rhythm: Rhythm: sinus bradycardia Ectopy: Ectopy: none QRS: QRS axis: Normal QRS intervals: Normal QRS conduction: normal ST segments: ST segments: Normal T waves: T waves: normal Q waves: Abnormal Q-waves: not present MDM: Medical Decision Making The patient presents from home for evaluation status post a syncopal episode that occurred yesterday around 3:30 PM while at her pain management doctor's office. She reports she stood up and started to feel lightheaded and then the next thing she knows she was on the ground. She reports family is able to help her up and she later left the office. She was not seen by doctor or the hospital yesterday. She complains of headache and neck pain that is worse from her baseline. She took a Tylenol around noon today. No chest pain or pressure. No shortness of breath. No nausea or vomiting. She takes pregabalin for history of neuropathy. She is not on blood thinners. She did eat today. Vital signs are stable in the ER. She has no vertebral body tenderness to her cervical spine. Her heart is regular rhythm. Her lungs are clear bilaterally. Will obtain EKG and check laboratory studies as she is status post a syncopal episode almost 24 hours ago. Will also obtain a CT of her head and cervical spine to evaluate for possible traumatic injuries. Final disposition pending. 1642 -the patient is doing well in the ER. The CT of her head and cervical spine showed no acute traumatic injuries. Her EKG shows a sinus bradycardia, no STEMI. Her laboratory studies are unremarkable. Her orthostatic vital signs are negative. She remained stable here in the ER and is okay for discharge home with PCP follow-up. Problems Addressed: Syncope, unspecified syncope type: acute illness or injury Amount and/or Complexity of Data Reviewed Labs: ordered. Decision-making details documented in ED Course. Radiology: ordered and independent interpretation performed. Decision-making details documented in ED Course. ECG/medicine tests: ordered and independent interpretation performed. Decision-making details documented in ED Course. Risk OTC drugs. Prescription drug management. Flowsheet Documentation: Scoring Tools: No data recorded Disposition/Condition: ED Disposition ED Disposition Discharge Condition Stable Comment -- Discharge Medications: Patient's Medications START taking these medications No medications on file CONTINUE taking these medications which have NOT CHANGED APIXABAN 5 MG TABLET Take 1 tablet by mouth in the morning and 1 tablet in the evening. ASPIRIN 81 MG CHEWABLE TABLET Take 1 tablet by mouth in the morning. ATORVASTATIN 40 MG TABLET Take 1 tablet by mouth at bedtime. CYCLOBENZAPRINE 5 MG TABLET Take 1 tablet by mouth every 12 (twelve) hours as needed for Muscle Spasms. LETROZOLE 2.5 MG TABLET Take 1 tablet by mouth daily LOSARTAN 25 MG TABLET Take 1 tablet by mouth in the morning. METOPROLOL SUCCINATE XL 25 MG 24 HR TABLET Take 1 tablet by mouth in the morning. PREGABALIN 150 MG CAPSULE Take 1 capsule by mouth in the morning and 1 capsule at noon and 1 capsule in the evening. START taking Modified Medications as Prescribed No medications on file STOP taking these medications No medications on file Follow-up: Electronically signed by: Raquel Wilks DO 11/02/24 1644 [facility] 2024-11-02 11:43:57 Spoke with pt who reports she fell yesterday after blacking out. Advised pt she should go to ED if she fell and hit her head so that she could be evaluated. Pt verbalized understanding and stated she spoke with her PCP who also advised the same thing. BETH Humphrey LVN [facility] 2024-11-02 09:52:30 Chepe Reilly is a 69 year old female Pt is calling stating she has started falling out again and is extremely dizzy Pt said this hasn't happened in a while ,but she feel out like a tree falling Please advise BETH Paz [facility] 2024-09-26 15:39:54 Please review and send new Rx as appropriate. Order pended for your review. [facility] 2024-09-26 14:31:03 Chepe Reilly is a 68 year old female [facility] is calling stating that the Pt's insurance wont pay for the 6 pills a day on the pregabalin 75 mg capsule Insurance will only pay for 4 tablets a day Please advise [facility]/pharmacy #[id number] - [place], [place] - [address] AT [facility] Damaris Paz [facility] 2024-09-23 08:06:48 Addended by: TATI ALEXANDER on: 09/23/2024 08:06 AM Modules accepted: Orders T [facility] 2024-09-23 08:06:38 Done [facility] 2024-09-22 16:34:07 Addended by: AURA HOPE LVN on: 09/22/2024 04:34 PM Modules accepted: Orders Aura Hope LVN [facility] 2024-09-22 16:33:55 Please review, complete, and sign if appropriate. [facility] 2024-09-22 16:30:15 Patient has an appointment with Catherine on 09/23/24. Due to insurance she will need a referral to be able to see Helen Goodman. Patient needing a generic referral. Clifton Lantigua [facility] 2024-09-22 08:58:13 LMTCB Aura Hope LVN 09/22/2024 -OV scheduled for 09/23/24 with Tati Alexander. Aura Hope LVN [facility] 2024-09-20 16:09:53 ATC- VM full-SMS message sent 09/20/2024 Aura Hope LVN [facility] 2024-09-19 09:39:49 Called Patient, No answer, unable to leave message to call back. Camille Meneses RN [facility] 2024-09-19 09:07:08 Chepe Reilly is a 68 year old female would like to speak with nurse in regards to her ongoing wrist pain and whether she needs a new referral to Pain Management Please advise [phone] (home) Sharmaine Chen [facility] 2024-06-23 13:14:[address] orders is appropriate. Recent Visits Date Type Provider Dept 02/11/24 Office Visit Michelle Grewal PA [facility] Showing recent visits within past 540 days with a meds authorizing provider and meeting all other requirements Future Appointments No visits were found meeting these conditions. Showing future appointments within next 150 days with a meds authorizing provider and meeting all other requirements Melvi Camargo LVN [facility] 2024-06-23 13:11:18 Pt is requesting a mammogram order to be placed before her wellness due to her oncology pcp saying to ask provider to place one due to her history. Pt is requesting one within [facility]. Milla Enriquez [facility] 2024-05-04 16:00:00 Addended by: HOOD STONE on: 05/04/2024 05:31 PM Modules accepted: Orders T [facility] 2024-04-29 15:05:25 Done T [facility] 2024-04-29 14:14:37 Chepe Reilly is a 68 year old female and is calling back. Patient is requesting a referral to: Dept: Oncologist Reason for referral: F/u right chest pain that radiates towards the shoulder region Duration of problem: Internal / External referral: Internal Name of provider / location patient requesting: Gia Norton [address] [place] [address] Phone number: Fax number: Appt already scheduled?: Yes, but trying to move appt to Thursday05/02/24 in [facility] If yes, date of appt.: 05/10/24 -in [place] with same provider Anyi Nava [facility] 2024-04-29 13:30:37 Attempted to contact patient to gather more information. Name of oncologist needed. Camille Meneses RN [facility] 2024-04-29 11:26:32 Chepe Reilly is a 68 year old female Patient called stating her internal oncologist is requesting a referral to have the patient seen this Wednesday 05/02 instead of 05/10. Please contact [phone] (home) Rafal Forrester [facility] 2024-04-29 11:16:26 Patient contacted, states she is on the phone with someone who is answering all her questions. Patient will contact clinic after phone call if needed. Cari Tate RN [facility] 2024-04-28 12:20:55 Copied from [facility] #[id number]. 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 Please contact patient Graciela Sweeney [facility] 2024-04-28 10:22:[address] Norton is advising appointment to be assessed. Call transferred to [facility] to arrange appointment. ASHLY TRINH RN 04/28/2024 10:22 AM Ashly Trinh RN [facility] 2024-04-27 10:38:38 Spoke with patient, states she is having pain to right shoulder blade (7/10) that is sharp and consistent. States pain radiates across chest and has been going on for a few weeks. Instructed to report to ER for evaluation due to pain radiating across chest. Patient states she was seen by cardiology yesterday and had CV TRANSTHORACIC ECHO completed. ER precautions given, instructed to report to ER if sharp pain continues, generalized malaise, diaphoretic, n/v. Instructed I would route message to both Cardiology and Dr Norton for notification/ recommendations. Cari Tate RN [facility] 2024-04-27 10:03:29 Pt had surgery with Dr. Norton 08/05/22. Pt calling today reporting she is having "stabbing pain" near where her surgical site was. Pt states pain is in the back near the shoulder blade and radiates to the front near her breast. Please assess and assist. Dee Guevara [facility] 2024-03-24 11:48:50 Routing to provider for refill of Lyrica - controlled medication. Requested Prescriptions Pending Prescriptions Disp Refills pregabalin 75 mg capsule 360 capsule 1 Sig: Take 2 capsules by mouth in the morning and 2 capsules at noon and 2 capsules in the evening. Signed Prescriptions Disp Refills DULoxetine 60 mg capsule 180 capsule 3 Sig: TAKE 1 CAPSULE BY MOUTH IN THE MORNING AND 1 CAPSULE IN THE EVENING Authorizing Provider: HELEN BRADSHAW Ordering User: GRACIELA HUMPHREY [facility] 2024-03-24 09:57:31 Letrozole one year refills sent to [facility] pharmacy on 01/22/2024. Odette Rhoades LVN [facility] 2024-03-16 13:39:28 Spoke with patient, patient states they have already completed the tooth extraction. Cari Tate RN [facility] 2024-03-16 10:02:01 Pt has an appt to have a tooth extraction today @1pm and would like to speak to a nurse to make sure it is okay with Dr Gutierrez before having it done. Please Assist Mihaela Barrow [facility] 2024-03-01 11:24:28 Called patient per LYNN Ramírez to make sure she was seeing the physician that ordered the imaging or pathology laboratory aides teacher and patient does not know who her PCP is, said she will call her insurance to find out, I tried to explain she needs to see a provider or pathology laboratory aides teacher to discuss the pelvic sonogram recommended and she said she is seeing a bioinformatics engineer and she will take care of it. Kimi Torre MA [facility] 2024-02-25 15:30:00 30-day event monitor applied to patient, tolerated well. Baseline tracing sent/confirmed by company. Instructed on recording manual events, wear, care and return of device; understanding verbalized via teach back. Monitor to be returned to ([employer]) on 03.27.24. Dionna Toro MA [facility] 2024-02-24 08:35:50 Received Medical records from [facility]. Placed in provider box Clifton Lantigua [facility] 2024-02-18 14:02:19 Pt has signed medical release and has been faxed to designated location for request of medical records. Confirmation received. Scanned and uploaded to patients chart. Ashleigh Maldonado [facility] 2024-02-05 14:54:32 Informed my name is Caprice Zepeda support nurse. Pt identified by name and . Spoke with the patient, states she is still admitted in [facility] as of today. Patient reports she was admitted for issues of confusion, A-Fib, fluctuation in blood pressure. She states she is trying to get transferred over to [facility], and will let us know once she gets discharged. ICAL CARE RN Caprice López RN [facility] 2024-02-05 10:55:07 Noted; routed to Dr. Zepeda BETH Rhoades LVN [facility] 2024-02-05 10:45:31 Pt called to let Dr. Zepeda know she is in the hospital again. BETH Ge [facility] 2024-01-04 15:04:22 Informed my name is Caprice Zepeda support nurse. Pt identified by name and . Spoke with the patient states she has already spoken with Caprice CONTRERAS earlier. This call was addressed in a different encounter. ICAL CARE RN Caprice López RN [facility] 2024-01-04 14:35:30 Pt called saying she was talking to a nurse about the symptoms she was having but was not sure who she talked to. She would like a callback. ICAL CARE RN Moises Ge [facility] 2024-01-04 14:21:53 Informed my name is Caprice Zepeda support nurse. Pt identified by name and . Spoke with the patient, states she was released from [facility] in [place] on Thursday01/02/24. She states that she passed out, and was [...] that one of them can give her cancer. Informed the patient we would contact [facility] to request her records, and I would notify Dr. Zepeda team she was discharged. BETH López RN [facility] 2024-01-04 11:20:19 Patient contacted supporting nurse Caprice. Attempted to transfer and was unavailable. Please contact patient at [phone] BETH Phelan [facility] 2024-01-04 10:27:13 Left detailed voicemail on patient phone with the purpose of the call and the contact information for pt to return call to clinic to speak with Caprice López RN [facility] 2024-01-04 09:54:06 The patient called in to inform us that she was released on Thursday. She would like to receive a call to discuss her visit. BETH Wilks [facility] 2023-12-31 15:18:10 Sent a my chart message to the patient to contact the clinic once she discharges. ICAL CARE RN Caprice López RN [facility] 2023-12-31 14:56:13 Thank you for the update, if she could let us know when she is out of the hospital so we can request records thatd be helpful ICAL CARE RN [facility] 2023-12-31 13:23:41 Noted: Routed message to Dr. Zepeda and Berenice BAILEY ICAL CARE RN Caprice López RN [facility] 2023-12-31 13:10:07 Chepe Reilly is a 68 year old female Patient is calling wanting to notify she is currently admitted x3days due to passing out and having procedure on heart. [phone] (home) [facility]- [phone] ICAL CARE RN Chantel Bell [facility] 2023-08-11 13:00:00 Images from the original note were not included. Venipuncture collection performed by clean technique on the left anticubitus. Total of 1 attempts were made. Slight pressure and a bandage/dressing were applied to the site(s). The patient experienced no complications. The following specimens were processed according to instructions and sent to [facility] laboratories per lab order on 08/11/2023 : LT BLUE SST RED LAV 1 PPT DK GREEN (LiHep) DK GREEN (SodH) HENLEY DK BLUE (K2) DK BLUE (S) ACD Blood Culture NIPT/NTD Dee Burnett [facility] 2023-07-20 11:00:00 Images from the original note were not included. Venipuncture collection performed by clean technique on the left anticubitus. Total of 1 attempts were made. Slight pressure and a bandage/dressing were applied to the site(s). The patient experienced no complications. The following specimens were processed according to instructions and sent to [facility] laboratories per lab order on 07/20/2023 : LT BLUE SST RED LAV 1 PPT DK GREEN (LiHep) DK GREEN (SodH) HENLEY DK BLUE (K2) DK BLUE (S) ACD Blood Culture NIPT/NTD [facility] 2023-07-13 17:15:44 Sent pt [employer] message with copied section of consult for PT and encouraging her to f/u PT for plan of care for PT on her hands. Graciela Humphrey LVN [facility] 2023-07-13 10:09:44 Chepe Reilly is a 67 year old female Patient calling stating the provider ordered PT for her, however, PT seemed to work primarily with her feet. Patient states she needs the therapy for her hand and wants to ensure that's what she's being referred to PT for. Please advise. Helen Benitez [facility] 2023-07-01 11:27:42 Unable to reach pt at Contact Information [phone] Zepeda home number [phone] Elio Lange [facility] 2023-06-30 09:00:00 Images from the original note were not included. Venipuncture collection performed by clean technique on the left anticubitus. Total of 1 attempts were made. Slight pressure and a bandage/dressing were applied to the site(s). The patient experienced no complications. The following specimens were processed according to instructions and sent to [facility] laboratories per lab order on 06/30/2023 : LT BLUE SST RED LAV 1 PPT DK GREEN (LiHep) DK GREEN (SodH) HENLEY DK BLUE (K2) DK BLUE (S) ACD Blood Culture NIPT/NTD Dee Burnett [facility] 2023-06-24 11:49:44 Requested Prescriptions Signed Prescriptions Disp Refills DULoxetine 60 mg capsule 60 capsule 0 Sig: TAKE 1 CAPSULE BY MOUTH IN THE MORNING AND IN THE EVENING Authorizing Provider: HELEN BRADSHAW Ordering User: GRACIELA HUMPHREY Pharmacy requested 90 day supply. I only refilled it for 30 days d/t pt having f/u appt 07/03 and I was unsure if prescription would remain the same. [facility]
--- NOTE | 2025-01-22 22:34 | RAD REPORT ---
Procedure: Chest Single View HISTORY: Syncope COMPARISON: 2023 FINDINGS: Left base is hazy. Right lung appears clear. No significant pleural effusion noted. The heart is normal size. IMPRESSION: Left base is hazy probably a pneumonia. Overlying soft tissue is a another consideration. PA and late ral chest series could be obtained for further evaluation
[2025-01-22 22:43] LABS: Absolute Basophils 0.1 K/uL (0-0.5); Absolute Eosinophils 0.1 K/uL (0-0.5); Absolute Lymphocytes (CBC) 2.8 K/uL (0.7-4.9); Absolute Monocytes 0.3 K/uL (0.1-1.3); Absolute Neutrophil 2.1 K/uL (1.8-8.0); Basophils % 2.2 % (0-1.3); Eosinophils % 2.7 % (0-4.4); Hematocrit 39.5 % (36.0-45.0); Hemoglobin 12.7 g/dL (12.0-15.0); Lymphocytes % 50.7 % (15.3-44.8); MCH 29.4 pg (27.0-35.0); MCHC 32.1 g/dL (32.0-36.0); MCV 91.6 fL (80-100); MPV 9.8 fL (7.6-11.3); Monocytes % 5.5 % (3.3-12.3); Neutrophils % 38.9 % (41.7-73.7); Nucleated Red Blood Cells % 0.2 % (0-0); Platelets 209 thou/uL (152-406); RBC Red Blood Cell Count 4.32 M/uL (3.86-4.86)
[2025-01-22 22:46] LABS: PT Prothrombin Time 13.3 SECONDS (10.0-13.0); PTT, Activated Partial Thromb 29.5 SECONDS (24.3-36.9); Protime INR 1.18
[2025-01-22 22:56] LABS: Albumin 2.8 g/dL (3.4-5.0); Albumin/Globulin Ratio 0.5 (1.1-1.8); Anion Gap 9.3 mEq/L (5.0-15.0); Bilirubin Direct 0.3 mg/dL (0-0.2); Bilirubin Indirect, Calculated 0.2 mg/dL (0.2-0.8); Bilirubin Total 0.5 mg/dL (0.2-1.0); Globulin 5.4 g/dL (2.3-3.5); Potassium 3.3 mEq/L (3.5-5.1); Protein, Total 8.2 g/dL (6.4-8.2); Troponin High Sensitivity 6.7 pg/mL (<58.9)
[2025-01-22 23:53] LABS: Band Neutrophils 2 % (0-1); Blood Morphology Comment NOT SEEN (NOT SEEN); Differential Total Cells Count 100; Eosinophils 4 % (0-3); Lymphocytes 52 % (15-42); Monocytes 3 % (0-10); Platelet Estimate ADEQ; Reactive Lymphocytes 4 %; Segmented Neutrophils 35 % (40-80)
[2025-01-23] MEDS ORDERED: POTASSIUM 25 MEQ EFFERV TAB ONE (00:06)
--- NOTE | 2025-01-23 00:21 | EDPHYS ---
Physician Documentation [facility] Name: Mona Reilly Age: 69 yrs Sex: Female : 1955 Arrival Date: 01/22/2025 Time: 22:04 Bed 6 Private MD: ED Physician Cirilo Sparks HPI: 01/22 22:16 This 69 yrs old Black Female presents to ER via EMS with complaints of Syncope. sp3 22:16 69-year-old female with a history of breast cancer status post right mastectomy sp3 currently on no treatment with no evidence of disease, multiple prior syncopal episodes due to electrolyte abnormality and occasional marijuana use, now presents to the ED with another episode of syncope that occurred at home, witnessed where patient passed out into a chair without significant trauma. EMS was activated and patient was altered for approximately 10 to 12 minutes. EMS arrived to find patient groggy but now awake and transported without difficulty. Patient currently awake, alert and oriented and states no current headache, neck pain, chest pain, shortness of breath, abdominal pain, nausea, vomiting, diarrhea, syncope, near syncope, focal logical deficit or any other signs or symptoms on ROS at this time.. Historical: - PMHx: 22:14 breast cancer; br2 - PSHx: 22:14 R mastectomy; br2 - Immunization history:: Adult Immunizations not up to date. - Infectious Disease History:: Denies. - Social history:: Smoking status: Patient reports the use of cigarette tobacco products, smokes one-half pack cigarettes per day, Patient uses alcohol, occasionally. street drugs, marijuana. ROS: 22:17 Constitutional: Negative for fever, chills, and weight loss, Eyes: Negative for injury, sp3 pain, redness, and discharge, ENT: Negative for injury, pain, and discharge, Neck: Negative for injury, pain, and swelling, Cardiovascular: Negative for chest pain, palpitations, and edema, Respiratory: Negative for shortness of breath, cough, wheezing, and pleuritic chest pain, Abdomen/GI: Negative for abdominal pain, nausea, vomiting, diarrhea, and constipation, Back: Negative for injury and pain, MS/Extremity: Negative for injury and deformity, Skin: Negative for injury, rash, and discoloration, Psych: Negative for depression, anxiety, suicide ideation, homicidal ideation, and hallucinations, Allergy/Immunology: Negative for hives, rash, and allergies, Endocrine: Negative for neck swelling, polydipsia, polyuria, polyphagia, and marked weight changes, Hematologic/Lymphatic: Negative for swollen nodes, abnormal bleeding, and unusual bruising, 22:17 All other systems are negative, Exam: 22:18 Constitutional: This is a well developed, well nourished patient who is awake, alert, sp3 and in no acute distress. Head/Face: Normocephalic, atraumatic. Eyes: Pupils equal round and reactive to light, extra-ocular motions intact. Lids and lashes normal. Conjunctiva and sclera are non-icteric and not injected. Cornea within normal limits. Periorbital areas with no swelling, redness, or edema. ENT: Nares patent. No nasal discharge, no septal abnormalities noted. External auditory canals are clear. Oropharynx with no redness, swelling, or masses, exudates, or evidence of obstruction, uvula midline. Mucous membranes moist. Neck: Trachea midline, no thyromegaly or masses palpated, and no cervical lymphadenopathy. Supple, full range of motion without nuchal rigidity, or vertebral point tenderness. No Meningismus. Chest/axilla: Normal chest wall appearance and motion. Nontender with no deformity. No lesions are appreciated. Cardiovascular: Regular rate and rhythm with a normal S1 and S2. No gallops, murmurs, or rubs. Normal PMI, no JVD. No pulse deficits. Respiratory: Lungs have equal breath sounds bilaterally, clear to auscultation and percussion. No rales, rhonchi or wheezes noted. No increased work of breathing, no retractions or nasal flaring. Abdomen/GI: Soft, non-tender, with normal bowel sounds. No distension or tympany. No guarding or rebound. No evidence of tenderness throughout. Back: No spinal tenderness. No costovertebral tenderness. Full range of motion. Skin: Warm, dry with normal turgor. Normal color with no rashes, no lesions, and no evidence of cellulitis. MS/ Extremity: Pulses equal, no cyanosis. Neurovascular intact. Full, normal range of motion. Neuro: Awake and alert, GCS 15, oriented to person, place, time, and situation. Cranial nerves II-XII grossly intact. Motor strength 5/5 in all extremities. Sensory grossly intact. Cerebellar exam normal. Normal gait. Psych: Awake, alert, with orientation to person, place and time. Behavior, mood, and affect are within normal limits. Vital Signs: 22:06 BP 114 / 66; Pulse 63; Resp 18; Temp 97.2(TE); Pulse Ox 97% on R/A; Weight 88.45 kg; br2 Height 5 ft. 7 in. ; Pain 0/10; 22:30 BP 128 / 63; Pulse 61; Resp 18 S; Pulse Ox 98% on R/A; br2 23:38 BP 148 / 78 LA Supine (auto/reg); Pulse 65 LA; cp4 23:38 BP 143 / 75 LA Sitting (auto/reg); Pulse 64 LA; cp4 23:38 BP 150 / 84 LA Standing (auto/reg); Pulse 66; cp4 01/23 00:49 BP 146 / 73; Pulse 70; Resp 18; Pulse Ox 98% ; br2 01/22 22:06 Body Mass Index 30.54 (88.45 kg, 170.18 cm) br2 01/22 22:06 Pain Scale: Adult br2 MDM: 01/22 22:14 Medical Screening Exam initiated sp3 22:18 Data reviewed: vital signs, nurses notes, EMS record, old medical records, lab test sp3 result(s), EKG, radiologic studies. ED course: 69-year-old female with syncopal episode now resolved. Differential diagnosis includes electrolyte imbalance, vasovagal syncope, orthostatic hypotension, drug use, ACS, other intracranial pathology, among others. Workup will include CT scan of the head, EKG, labs, UDS and general supportive care. Vital signs currently normal with no acute intervention indicated. Disposition pending workup and patient course.. 01/23 00:20 ED course: Workup negative. Potassium replaced patient to be discharged at this time sp3 with follow-up to PCP... 01/22 22:15 Order name: Basic Metabolic Panel; Complete Time: 23:11 sp3 01/22 22:15 Order name: CBC with Diff sp3 01/22 22:15 Order name: Hepatic Function; Complete Time: 23:11 sp3 01/22 22:15 Order name: Magnesium; Complete Time: 23:11 sp3 01/22 22:15 Order name: Protime (+inr); Complete Time: 23:11 sp3 01/22 22:15 Order name: Ptt, Activated; Complete Time: 23:11 sp3 01/22 22:15 Order name: Troponin High Sensitivity; Complete Time: 23: sp3 01/22 22:47 Order name: Manual Differential EDMS 01/22 22:15 Order name: CT Head Brain wo Cont sp3 01/22 22:15 Order name: Chest Single View XRAY; Complete Time: 22:35 sp3 01/22 22:15 Order name: Cardiac monitoring; Complete Time: :29 sp3 01/22 22:15 Order name: EKG - Nurse/Tech; Complete Time: 23:23 sp3 01/22 22:15 Order name: IV Saline Lock; Complete Time: : sp3 01/22 22:15 Order name: Labs collected and sent; Complete Time: : sp3 01/22 22:15 Order name: NPO; Complete Time: : sp3 01/22 22:15 Order name: O2 Per Protocol; Complete Time: : sp3 01/22 22:15 Order name: O2 Sat Monitoring; Complete Time: : sp3 01/22 22:15 Order name: Orthostatics; Complete Time: 23:38 sp3 Administered Medications: 00:32 Drug: Potassium PO Effervescent Tablet 50 mEq PO once; dissolve in 4 ounces of water or br2 juice Route: PO; 00:49 Follow up: Response: No adverse reaction br2 Disposition Summary: 01/23/25 00:21 Discharge Ordered Notes: Location: Home sp3 Condition: Stable sp3 Diagnosis - Syncope sp3 Followup: sp3 - With: Private Physician - When: Upon discharge from the Emergency Department - Reason: Continuance of care Discharge Instructions: - Discharge Summary Sheet sp3 - Syncope sp3 Forms: - Medication Reconciliation Form sp3 - Antibiotic Education sp3 - Prescription Opioid Use sp3 - Patient Portal Instructions sp3 - Leadership Thank You Letter sp3 Signatures: Dispatcher [employer] Cirilo Martinez MD MD sp3 Christie Phelan RN RN br2 Corrections: (The following items were deleted from the chart) 01/22 22:15 22:15 BASIC METABOLIC PANEL+C.LAB.BRZ ordered. EDMS EDMS 22:15 22:15 CBC+H.LAB.BRZ ordered. EDMS EDMS 22:15 22:15 HEPATIC FUNCTION+C.LAB.BRZ ordered. EDMS EDMS 22:15 22:15 MAGNESIUM+C.LAB.BRZ ordered. EDMS EDMS 22:15 22:15 PROTIME (+INR)+COAG.LAB.BRZ ordered. EDMS EDMS 22:15 22:15 PTT, ACTIVATED+COAG.LAB.BRZ ordered. EDMS EDMS 22:15 22:15 Troponin High Sensitivity+C.LAB.BRZ ordered. EDMS EDMS 22:15 22:15 URINE DRUG SCREEN+UC.LAB.BRZ ordered. EDMS EDMS 22:15 22:15 Urinalysis+U.LAB.BRZ ordered. EDMS EDMS 22:15 22:15 Troponin High Sensitivity+C.LAB.BRZ ordered. EDMS EDMS 22:15 22:15 Head Brain Wo Cont+CT.RAD.BRZ ordered. EDMS EDMS 22:15 22:15 Chest Single View+RAD.RAD.BRZ ordered. EDMS EDMS
--- NOTE | 2025-01-23 00:21 | ER ---
Nurse's Notes [facility] Name: Mona Reilly Age: 69 yrs Sex: Female : 1955 Arrival Date: 01/22/2025 Time: 22:04 Bed 6 Private MD: Diagnosis: Syncope Presentation: 01/22 22:06 Chief complaint: Patient states: PT WAS FOUND IN RECLINER UNRESPONSIVE WITH A PULSE. PT br2 HAS A HX OF SYNCOPAL EPISODES ESPECIALLY WHEN SHE SMOKES "WEED". PT ARRIVES AAOX4 ON ARRIVAL TO ER. Coronavirus screen: Client denies travel out of the [place] in the last 14 days. Ebola Screen: Patient denies exposure to infectious person. Initial Sepsis Screen: Does the patient meet any 2 criteria? No. Patient's initial sepsis screen is negative. Does the patient have a suspected source of infection? No. Patient's initial sepsis screen is negative. Risk Assessment: Do you want to hurt yourself or someone else? Patient reports no desire to harm self or others. Onset of symptoms was January 22, 2025 at 21:30. 22:06 Method Of Arrival: EMS: [facility] br2 22:06 Acuity: JUAN 3 br2 Triage Assessment: 22:06 General: Appears in no apparent distress. comfortable, Behavior is calm, cooperative. br2 Pain: Denies pain. Neuro: Level of Consciousness is awake, alert, obeys commands, Oriented to person, place, time, situation. Neuro: Reports FEELING FINE. Respiratory: No deficits noted. GI: No signs and/or symptoms were reported involving the gastrointestinal system. : No signs and/or symptoms were reported regarding the genitourinary system. Musculoskeletal: No signs and/or symptoms reported regarding the musculoskeletal system. Historical: - PMHx: 22:14 breast cancer; br2 - PSHx: 22:14 R mastectomy; br2 - Immunization history:: Adult Immunizations not up to date. - Infectious Disease History:: Denies. - Social history:: Smoking status: Patient reports the use of cigarette tobacco products, smokes one-half pack cigarettes per day, Patient uses alcohol, occasionally. street drugs, marijuana. Screenin:06 [facility] ED Fall Risk Assessment (Adult) History of falling in the last 3 months, br2 including since admission Yes- single mechanical fall (1 pt) Confusion or Disorientation No (0 pts) Intoxicated or Sedated No (0 pts) Impaired Gait No (0 pts) Mobility Assist Device Used No (0 pt) Altered Elimination No (0 pt) Score/Fall Risk Level 0 - 2 = Low Risk Oriented to surroundings. Abuse screen: Denies threats or abuse. Denies injuries from another. Nutritional screening: No deficits noted. Tuberculosis screening: No symptoms or risk factors identified. Assessment: 22:06 Reassessment: SEE TRIAGE ASSESSMENT. br2 Vital Signs: 22:06 BP 114 / 66; Pulse 63; Resp 18; Temp 97.2(TE); Pulse Ox 97% on R/A; Weight 88.45 kg; br2 Height 5 ft. 7 in. ; Pain 0/10; 22:30 BP 128 / 63; Pulse 61; Resp 18 S; Pulse Ox 98% on R/A; br2 23:38 BP 148 / 78 LA Supine (auto/reg); Pulse 65 LA; cp4 23:38 BP 143 / 75 LA Sitting (auto/reg); Pulse 64 LA; cp4 23:38 BP 150 / 84 LA Standing (auto/reg); Pulse 66; cp4 01/23 00:49 BP 146 / 73; Pulse 70; Resp 18; Pulse Ox 98% ; br2 01/22 22:06 Body Mass Index 30.54 (88.45 kg, 170.18 cm) br2 01/22 22:06 Pain Scale: Adult br2 ED Course: 01/22 22:06 Patient arrived in ED. cp4 22:06 Arm band placed on right wrist. br2 22:06 Patient has correct armband on for positive identification. Bed in low position. Call br2 light in reach. Provided Education on: PLAN OF CARE. 22:09 Christie Phelan, DIANE is Primary Nurse. br2 22:14 Cirilo Sparks MD is Attending Physician. sp3 22:14 Triage completed. br2 22:28 Chest Single View XRAY In Process Unspecified. EDMS 22:29 Inserted saline lock: 22 gauge in right antecubital area, using aseptic technique. cp4 Blood collected. Flushed with 10 mL NS. 23:05 CT Head Brain wo Cont In Process Unspecified. EDMS 01/23 00:49 IV discontinued, intact, bleeding controlled, No redness/swelling at site. Pressure br2 dressing applied. 00:49 No provider procedures requiring assistance completed. br2 Administered Medications: 00:32 Drug: Potassium PO Effervescent Tablet 50 mEq PO once; dissolve in 4 ounces of water or br2 juice Route: PO; 00:49 Follow up: Response: No adverse reaction br2 Outcome: 00:21 Discharge ordered by . sp3 00:49 Discharged to home via wheelchair, br2 00:49 Condition: stable 00:49 Discharge instructions given to patient, family, Instructed on discharge instructions, follow up and referral plans. Demonstrated understanding of instructions, follow-up care, 00:50 Patient left the ED. br2 Signatures: Dispatcher [employer] EDMS Cirilo Sparks MD MD sp3 Nancy Pulido Belinda, RN RN br2 Corrections: (The following items were deleted from the chart) 01/22 23:40 23:39 Reassessment: SEE TRIAGE ASSESSMENT br2 br2 23:41 23:38 BP 150 / 84; Pulse 71bpm; Resp 18bpm; Spontaneous; Pulse Ox 100% RA; br2 br2
[2025-01-23 01:08] VITALS: BP 146/73; TEMP 97.2; O2SAT 98
--- NOTE | 2025-01-23 02:22 | RAD REPORT ---
PROCEDURE: CT Head Without Intravenous Contrast CLINICAL INDICATION: The patient is 69 years old and is Female; Mental status change, syncope. TECHNIQUE: Axial computed tomography images of the head/brain without intravenous contrast. Sagittal and coron al reformatted images were created and reviewed. This CT exam was performed using one or more of the following dose reduction techniques: automated exposure control, adjustment of the mA and/or kV according to patient size, and/or use of iterative reconstruction technique. COMPARISON: CT Head 11/06/2024. FINDINGS: BRAIN: Mild bilateral periventricular and deep white matter microangiopathy changes. No extra-axial fluid collection. No intracranial hemorrhage. No transtentorial herniation. No focal cerna-white matter differentiation abnormality. MIDLINE SHIFT: No midline shift. VENTRICLES: Unremarkable No ventriculomegaly. BONES/JOINTS: No fracture of the calvarium or visualized facial bones. SOFT TISSUES: Unremarkable SINUSES: Sequela of chronic right maxillary sinusitis, with associated circumferential mucosal thic kening redemonstrated. Unchanged. MASTOID AIR CELLS: Unremarkable as visualized. No mastoid effusion. IMPRESSION: 1. Chronic and senescent changes with no acute intracranial findings. 2. Chronic right maxillary sinusitis, unchanged. Electronically signed by: Tej Newell MD 01/23/2025 12:22 AM [facility] Due to temporary technical issues with the [employer] reporting system, reports are being traci d by the in-house radiologist without review as a courtesy to ensure prompt reporting the interpreting radiologist is fully responsible for the content of the report. Transcribed Date/Time: 01/23/2025 6:51 AM
--- NOTE | 2025-01-23 11:56 | EKG ---
Test Date: 2025-01-22 Test Time: 23:12:56 [employer] Lay Out Worker: JAMAL MEASUREMENT RESULTS: Intervals: Rate: 65 VA: 142 QRSD: 82 QT: 456 QTc: 474 [place]: P: 80 VA: 142 QRS: 89 T: 65 INTERPRETIVE STATEMENTS: Normal sinus rhythm Possible Left atrial enlargement Nonspecific ST abnormality Abnormal ECG Compared to ECG 11/06/2024 20:25:21 ST (T wave) deviation now present Electronically Signed On 01-23-25 11:56:17 STABLE HAND by George Scott
== END 2025-01-23 00:50 | disposition home or self-care (01) ==
LOC: ER 22:04
DX: R55 Syncope and collapse (principal); Z90.11 Acquired absence of right breast and nipple; Z85.3 Personal history of malignant neoplasm of breast; F17.210 Nicotine dependence, cigarettes, uncomplicated
CPT/HCPCS: 36415; 70450; 71045; 80048; 80076; 83735; 84484; 85025; 85610; 85730; 93005; 99284